=== PATIENT | female | born 1970 | race Hispanic/Latino ===

== ENCOUNTER 2018-10-31 21:02 | Emergency (ER) | payer MEDICARE ==
[2018-10-31 21:59] VITALS: BP 146/62
[2018-11-01] MEDS ORDERED: BENADRYL PO ONE (01:55)
[2018-11-01] MEDS ORDERED: DECADRON PO ONE (01:55)
[2018-11-01] MEDS ORDERED: PEPCID PO ONE (01:55)
--- NOTE | 2018-11-01 02:04 | Emergency Department Report ---
HPI - General Chief Complaint: Allergic Reaction Time Seen by Provider: 11/01/18 01:32 - HPI HPI: Pt is a 48 yo a rash to the extremities that began earlier today. She states that she has itching. The patient states she ate chicken dumplings at someone's house today. She states she believes it is resolving. The patient does not report wheezing, SOB, tongue edema, or any other sx. the patient states she has food allergies to nuts and lactose intolerance but does not believe that was in the food. ED Past Medical Hx - Past Medical History Previous Medical History?: Yes Hx Congestive Heart Failure: Yes Hx Psychiatric Treatment: Yes (Bipolar Depressed) Additional medical history: Hypothyroidism, sleep apnea, DVT - Surgical History Past Surgical History?: Yes - Social History Smoking Status: Never Smoker Substance Use Type: None - Medications Home Medications: Home Medications Medication Instructions Recorded Confirmed Last Taken Type Clotrimazole/Betamethasone Dip 15 gm TP BID 7 Days #1 cream..g. 11/01/18 Unknown Rx [Lotrisone Cream] ED Review of Systems ROS: Stated complaint: rash Other details as noted in HPI Comment: All other systems reviewed and negative Physical Exam - Physical Exam Vital Signs: Vital Signs 10/31/18 21:58 Temperature 97.9 F Pulse Rate 74 Respiratory 18 Rate Blood Pressure 146/62 [Right] O2 Sat by Pulse 94 Oximetry General: Pt is non toxic appearing, in no distress Physical Exam: no tongue edema, uvula is midline, no facial edema, clear breath sounds throughout, no wheezing, no rales, no rhonchi three small macules on the LLE and two small macules on the RUE with erythema around the edges normal rate, normal rhythm, heart sounds are normal ED Course Vital Signs 10/31/18 21:58 Temperature 97.9 F Pulse Rate 74 Respiratory 18 Rate Blood Pressure 146/62 [Right] O2 Sat by Pulse 94 Oximetry ED Medical Decision Making - Medical Decision Making Pt presents to the ED with c/o a rash and itching. She states she ate chicken and dumplings at someones home. Pt states she believes it is resolving. VSS. No tongue edema, no angioedema, no facial edema, breath sounds are clear throughout with good air movement. Pt has three small macules on the LLE and two small macules on the RUE which could represent a tinea corporis. Will give pt an ointment. Pt given medications while in the ED. Discussed with pt can use benadryl OTC for itching. - Differential Diagnosis Allergic reaction, contact dermitis, Tinea corporis Critical care attestation.: If time is entered above; I have spent that time in minutes in the direct care of this critically ill patient, excluding procedure time. ED Disposition Clinical Impression: Tinea corporis Allergic reaction Qualifiers: Encounter type: initial encounter Qualified Code(s): T78.40XA - Allergy, unspecified, initial encounter Disposition: TO HOME OR SELFCARE Is pt being admited?: No Does the pt Need Aspirin: No Condition: Stable Instructions: Tinea Corporis (ED), Allergies (ED) Additional Instructions: Follow up with your primary care doctor in the next 2 days. Use ointment as prescribed. May use benadryl OTC for itching. Return to the emergency room for any new or worsening symptoms. Prescriptions: Clotrimazole/Betamethasone Dip [Lotrisone Cream] 15 gm TP BID 7 Days #1 cream..g. [facility] [Referring] - 2-3 Days Time of Disposition: 02:21 Print Language: SLOVENIAN
== END 2018-11-01 02:25 | disposition home or self-care (01) ==
LOC: ED 21:02
DX: B35.4 Tinea corporis (principal); I50.9 Heart failure, unspecified; E03.9 Hypothyroidism, unspecified; T78.40XA Allergy, unspecified, initial encounter; Y92.89 Other specified places as the place of occurrence of the external cause
CPT/HCPCS: 99282; J8540

== ENCOUNTER 2018-11-15 05:39 | Emergency (ER) | payer MEDICARE ==
[2018-11-15 05:50] VITALS: BP 119/66
[2018-11-15] MEDS ORDERED: DECADRON IM ONE (07:07)
--- NOTE | 2018-11-15 07:12 | Emergency Department Report ---
ED Allergic Reaction HPI - General Chief complaint: Allergic Reaction Stated complaint: POSSIBLE ALLERGIC REACTION Time Seen by Provider: 11/15/18 06:56 Source: patient, EMS Mode of arrival: Ambulatory Limitations: No Limitations - History of Present Illness Initial Comments: This is a 48-year-old female nontoxic, well nourished in appearance, no acute signs of distress presents to the ED with c/o of generalized itching. Patient states she stated on Vistaril and after receiving the dose he received some itching. Patient denies any rash. Patient denies any redness. Patient denies any drooling, hoarseness or facial swelling. Patient denies any trauma. She denies any fever, chills, nausea, vomiting, chest pain, shortness of breath, headache, stiff neck, numbness or tingling. Patient states allergies to Lortab, latex, oxycodone, penicillin, Darvocet, sulfa, dairy allergy, napsylate. MD Complaint: allergic reaction -: Last night Exposure: medication Symptoms: itching. denies: rash, facial swelling, lip swelling, difficulty swallowing, difficulty breathing, orolingual swelling, hoarseness, syncopy, dizziness, nausea, vomiting, abdominal pain Severity: mild Treatment Prior to Arrival: benadryl Previous Allergy History: none - Related Data Home Medications Medication Instructions Recorded Confirmed Last Taken OLANZapine [Zyprexa] 15 mg PO DAILY 11/04/18 11/04/18 Unknown Zolpidem [Ambien] 5 mg PO QHS PRN 11/04/18 11/04/18 Unknown Previous Rx's Medication Instructions Recorded Last Taken Type Clotrimazole/Betamethasone Dip 15 gm TP BID 7 Days #1 cream..g. 11/01/18 Unknown Rx [Lotrisone Cream] Prednisone [predniSONE 10 mg 10 mg PO .TAPER #1 tab.ds.pk 11/15/18 Unknown Rx (6-Day Pack, 21 Tabs)] diphenhydrAMINE [Benadryl CAP] 25 mg PO Q6HR PRN #10 capsule 11/15/18 Unknown Rx Allergies Allergy/AdvReac Type Severity Reaction Status Date / Time acetaminophen [From Lortab] Allergy Unknown Verified 11/15/18 05:54 aspirin Allergy Unknown Verified 11/15/18 05:54 hydrocodone [From Lortab] Allergy Unknown Verified 11/15/18 05:54 latex Allergy Unknown Verified 11/15/18 05:54 nut - unspecified Allergy Unknown Verified 11/15/18 05:54 oxycodone Allergy Unknown Verified 11/15/18 05:54 Penicillins Allergy Rash Verified 11/04/18 05:08 propoxyphene Allergy Rash Verified 11/04/18 05:08 [From Darvocet-N] Sulfa (Sulfonamide Allergy Rash Verified 11/04/18 05:09 Antibiotics) dairy Allergy Unknown Uncoded 11/15/18 05:54 napsylate Allergy Rash Uncoded 11/04/18 05:11 ED Review of Systems ROS: Stated complaint: POSSIBLE ALLERGIC REACTION Other details as noted in HPI Constitutional: denies: chills, fever Eyes: denies: eye pain, eye discharge, vision change ENT: denies: ear pain, throat pain Respiratory: denies: cough, shortness of breath, wheezing Cardiovascular: denies: chest pain, palpitations Endocrine: no symptoms reported Gastrointestinal: denies: abdominal pain, nausea, diarrhea Genitourinary: denies: urgency, dysuria, discharge Musculoskeletal: denies: back pain, joint swelling, arthralgia Skin: denies: rash, lesions Neurological: denies: headache, weakness, paresthesias Psychiatric: denies: anxiety, depression Hematological/Lymphatic: denies: easy bleeding, easy bruising ED Past Medical Hx - Past Medical History Previous Medical History?: Yes Hx Congestive Heart Failure: Yes Hx Psychiatric Treatment: Yes (Bipolar Depressed schizo affective) Hx Asthma: Yes Additional medical history: Hypothyroidism, sleep apnea, DVT, Chronic Back pain, Gastritis, IBS. Hyperlipidemia. Stubbs's palsey - Surgical History Past Surgical History?: Yes Hx Cholecystectomy: Yes Additional Surgical History: Tonsilectomy, Uterine Ablation, Hernia repair, D&C. 2 molar pulled. stiched to nasal cavity. - Social History Smoking Status: Never Smoker Substance Use Type: None - Medications Home Medications: Home Medications Medication Instructions Recorded Confirmed Last Taken Type Clotrimazole/Betamethasone Dip 15 gm TP BID 7 Days #1 cream..g. 11/01/18 11/04/18 Unknown Rx [Lotrisone Cream] OLANZapine [Zyprexa] 15 mg PO DAILY 11/04/18 11/04/18 Unknown History Zolpidem [Ambien] 5 mg PO QHS PRN 11/04/18 11/04/18 Unknown History Prednisone [predniSONE 10 mg 10 mg PO .TAPER #1 tab.ds.pk 11/15/18 Unknown Rx (6-Day Pack, 21 Tabs)] diphenhydrAMINE [Benadryl CAP] 25 mg PO Q6HR PRN #10 capsule 11/15/18 Unknown Rx ED Physical Exam - General Limitations: No Limitations General appearance: alert, in no apparent distress - Head Head exam: Present: atraumatic, normocephalic - Eye Eye exam: Present: normal appearance - ENT ENT exam: Present: normal exam, normal orophraynx, other (uvula midline. no angioedema.) - Neck Neck exam: Present: normal inspection, full ROM. Absent: tenderness, meningismus, lymphadenopathy - Respiratory Respiratory exam: Present: normal lung sounds bilaterally. Absent: respiratory distress, wheezes, rales, rhonchi, stridor, chest wall tenderness, accessory muscle use, decreased breath sounds, prolonged expiratory - Cardiovascular Cardiovascular Exam: Present: regular rate, normal rhythm, normal heart sounds. Absent: bradycardia, tachycardia, irregular rhythm, systolic murmur, diastolic murmur, rubs, gallop - Extremities Exam Extremities exam: Present: normal inspection, full ROM - Back Exam Back exam: Present: normal inspection, full ROM - Neurological Exam Neurological exam: Present: alert, oriented X3 - Psychiatric Psychiatric exam: Present: normal affect, normal mood - Skin Skin exam: Present: warm, dry, intact, normal color. Absent: rash ED Course Vital Signs 11/15/18 05:42 Temperature 97.9 F Pulse Rate 63 Respiratory 18 Rate Blood Pressure 119/66 O2 Sat by Pulse 97 Oximetry - Reevaluation(s) Reevaluation #1: 11/15/18 07:10 Patient is speaking in full sentences with no signs of distress noted. ED Medical Decision Making - Medical Decision Making This is a 48-year-old female that presents with allergic reaction. Patient is stable was examined by me. There is no facial swelling. No angioedema. There is no cellulitis. No hoarseness. Patient received Decadron and patient stated took benadryl prior to the ED visit and stated itching has subsided. Patient is discharged with prednisone and Benadryl. Patient was referred to Follow-up with a primary care doctor in 3-5 days or if symptoms worsen and continue return to emergency room as soon as possible. At time of discharge, the patient does not seem toxic or ill in appearance. No acute signs of distress noted. Patient agrees to discharge treatment plan of care. No further questions noted by the patient. Critical care attestation.: If time is entered above; I have spent that time in minutes in the direct care of this critically ill patient, excluding procedure time. ED Disposition Clinical Impression: Allergic reaction Qualifiers: Encounter type: initial encounter Qualified Code(s): T78.40XA - Allergy, unspecified, initial encounter Disposition: TO HOME OR SELFCARE Is pt being admited?: No Does the pt Need Aspirin: No Condition: Stable Instructions: Anaphylaxis (ED) Additional Instructions: Follow-up with a primary care doctor in 3-5 days or if symptoms worsen and continue return to emergency room as soon as possible. Prescriptions: diphenhydrAMINE [Benadryl CAP] 25 mg PO Q6HR PRN #10 capsule PRN Reason: Itching Prednisone [predniSONE 10 mg (6-Day Pack, 21 Tabs)] 10 mg PO .TAPER #1 tab.ds.pk Referrals: PRIMARY CARE, [Primary Care Provider] - 3-5 Days JAYDA WU MD [Staff Physician] - 3-5 Days [facility] [Outside] - 3-5 Days [facility] [Outside] - 3-5 Days
== END 2018-11-15 07:38 | disposition home or self-care (01) ==
LOC: ED 05:39
DX: T78.40XA Allergy, unspecified, initial encounter (principal); I50.9 Heart failure, unspecified; J45.909 Unspecified asthma, uncomplicated; E03.9 Hypothyroidism, unspecified; G89.29 Other chronic pain; M54.9 Dorsalgia, unspecified; E78.5 Hyperlipidemia, unspecified; Z86.718 Personal history of other venous thrombosis and embolism; Z90.49 Acquired absence of other specified parts of digestive tract; Z88.8 Allergy status to other drugs, medicaments and biological substances; Z88.6 Allergy status to analgesic agent; Z91.040 Latex allergy status; Z91.018 Allergy to other foods; Z88.0 Allergy status to penicillin; Z88.2 Allergy status to sulfonamides; Z91.011 Allergy to milk products
CPT/HCPCS: 96372; 99283; J1100

== ENCOUNTER 2018-12-20 01:53 | Observation (INO) | payer MEDICARE ==
[2018-12-20] MEDS ORDERED: ASPIRIN PO ONE (02:07)
[2018-12-20 02:38] LABS: Basophils # (Auto) 0.1 K/mm3 (0.0-0.1); Basophils % (Auto) 0.8 % (0.0-1.8); Eosinophils # (Auto) 0.4 K/mm3 (0.0-0.4); Eosinophils % (Auto) 3.8 % (0.0-4.3); Hematocrit 40.4 % (30.3-42.9); Hemoglobin 13.3 gm/dl (10.1-14.3); Lymphocytes # (Auto) 2.2 K/mm3 (1.2-5.4); Lymphocytes % (Auto) 23.2 % (13.4-35.0); Mean Corpuscular HGB Conc 33 % (30-34); Mean Corpuscular Volume 82 fl (79-97); Monocytes # (Auto) 0.5 K/mm3 (0.0-0.8); Monocytes % (Auto) 5.6 % (0.0-7.3); Platelet Count 275 K/mm3 (140-440); Red Cell Distribution Width 15.4 % (13.2-15.2)
--- NOTE | 2018-12-20 02:40 | XRay Report ---
PROCEDURE: XR CHEST 1V AP TECHNIQUE: Single portable chest radiograph. HISTORY: Chest pain. COMPARISONS: Chest radiograph September 14, 2012. FINDINGS: Lung volumes decreased. Mild left basilar opacities and blunting of the left costophrenic angle. No l arge pleural effusion. No pneumothorax. Cardiac silhouette incompletely visualized secondary to lordotic technique, no definite enlargement. The superior mediastinum is not significantly widened. Trachea midline. No acute osseous finding. IMPRESSION: 1. Probable mild left basilar opacities and suggested small left pleural effusion. No lobar consolida tion. 2. Examination is limited secondary to portable and lordotic technique. This document is electronically signed by Celso Castañeda DO., Dec 20 2018 02:38:32 AM ET
[2018-12-20 03:05] LABS: BUN/Creatinine Ratio 11; Blood Urea Nitrogen 11 mg/dL (7-17); Calcium 9.6 mg/dL (8.4-10.2); Hemolysis Index 5
--- NOTE | 2018-12-20 06:11 | Emergency Department Report ---
ED Chest Pain HPI - General Chief Complaint: Chest Pain Stated Complaint: CHEST PRESSURE Time Seen by Provider: 12/20/18 06:05 Source: patient Mode of arrival: Ambulatory Limitations: No Limitations - History of Present Illness MD Complaint: chest pain -: Sudden Onset: during rest Severity scale (0 -10): 10 - Related Data Home Medications Medication Instructions Recorded Confirmed Last Taken OLANZapine [Zyprexa] 15 mg PO DAILY 11/04/18 11/04/18 Unknown Zolpidem [Ambien] 5 mg PO QHS PRN 11/04/18 11/04/18 Unknown Previous Rx's Medication Instructions Recorded Last Taken Type Clotrimazole/Betamethasone Dip 15 gm TP BID 7 Days #1 cream..g. 11/01/18 Unknown Rx [Lotrisone Cream] diphenhydrAMINE [Benadryl CAP] 25 mg PO Q6HR PRN #10 capsule 11/15/18 Unknown Rx Dicyclomine [Bentyl] 10 mg PO DAILY PRN #14 capsule 12/01/18 Unknown Rx Famotidine [Pepcid] 20 mg PO DAILY #30 tablet 12/01/18 Unknown Rx Promethazine [Phenergan TAB] 25 mg PO Q8HR PRN #10 tab 12/01/18 Unknown Rx Allergies Allergy/AdvReac Type Severity Reaction Status Date / Time acetaminophen [From Lortab] Allergy Unknown Verified 11/15/18 05:54 aspirin Allergy Unknown Verified 11/15/18 05:54 hydrocodone [From Lortab] Allergy Unknown Verified 11/15/18 05:54 latex Allergy Unknown Verified 11/15/18 05:54 nut - unspecified Allergy Unknown Verified 11/15/18 05:54 oxycodone Allergy Unknown Verified 11/15/18 05:54 Penicillins Allergy Rash Verified 11/04/18 05:08 propoxyphene Allergy Rash Verified 11/04/18 05:08 [From Darvocet-N] Sulfa (Sulfonamide Allergy Rash Verified 11/04/18 05:09 Antibiotics) dairy Allergy Unknown Uncoded 11/15/18 05:54 napsylate Allergy Rash Uncoded 11/04/18 05:11 ED Review of Systems ROS: Stated complaint: CHEST PRESSURE Other details as noted in HPI ED Past Medical Hx - Past Medical History Previous Medical History?: Yes Hx Congestive Heart Failure: Yes Hx Psychiatric Treatment: Yes (Bipolar Depressed schizo affective) Hx Asthma: Yes Additional medical history: Hypothyroidism, sleep apnea, DVT, Chronic Back pain, Gastritis, IBS. Hyperlipidemia. Stubbs's palsey - Surgical History Past Surgical History?: Yes Hx Cholecystectomy: Yes Additional Surgical History: Tonsilectomy, Uterine Ablation, Hernia repair, D&C. 2 molar pulled. stiched to nasal cavity. - Social History Smoking Status: Never Smoker Substance Use Type: None - Medications Home Medications: Home Medications Medication Instructions Recorded Confirmed Last Taken Type Clotrimazole/Betamethasone Dip 15 gm TP BID 7 Days #1 cream..g. 11/01/18 11/04/18 Unknown Rx [Lotrisone Cream] OLANZapine [Zyprexa] 15 mg PO DAILY 11/04/18 11/04/18 Unknown History Zolpidem [Ambien] 5 mg PO QHS PRN 11/04/18 11/04/18 Unknown History diphenhydrAMINE [Benadryl CAP] 25 mg PO Q6HR PRN #10 capsule 11/15/18 Unknown Rx Dicyclomine [Bentyl] 10 mg PO DAILY PRN #14 capsule 12/01/18 Unknown Rx Famotidine [Pepcid] 20 mg PO DAILY #30 tablet 12/01/18 Unknown Rx Promethazine [Phenergan TAB] 25 mg PO Q8HR PRN #10 tab 12/01/18 Unknown Rx ED Physical Exam - General Limitations: No Limitations ED Course Vital Signs 12/20/18 12/20/18 02:05 05:10 Temperature 98.3 F Pulse Rate 81 57 L Respiratory 18 10 L Rate Blood Pressure 108/73 126/84 [Right] O2 Sat by Pulse 96 100 Oximetry ED Medical Decision Making - Lab Data Result diagrams: 12/20/18 02:13 12/20/18 02:13 Critical care attestation.: If time is entered above; I have spent that time in minutes in the direct care of this critically ill patient, excluding procedure time. ED Disposition Condition: Stable Referrals: JACQUELINE ANDERSON MD [Primary Care Provider] - 3-5 Days
--- NOTE | 2018-12-20 06:20 | Emergency Department Report ---
ED Chest Pain HPI - General Chief Complaint: Chest Pain Stated Complaint: CHEST PRESSURE Time Seen by Provider: 12/20/18 06:05 Source: patient Mode of arrival: Ambulatory Limitations: No Limitations - History of Present Illness Initial Comments: Patient is a 48-year-old female Emergency room with complaints of nausea vomiting and chest pain. Patient states her chest pain is in her substernal region and radiates to her jaw. Patient states that her pain started at 1 AM. Patient states the pain is worsening. Patient states the pain is a 10 out of 10. Patient states the pain is worse with exertion and better with rest. Patient states she took a nitroglycerin prior to coming to the hospital. Patient states the nitroglycerin improved her pain MD Complaint: chest pain -: Sudden Onset: during rest Pain Location: substernal, left chest Pain Radiation: jaw/teeth Severity: severe Severity scale (0 -10): 10 Quality: heaviness, pressure Consistency: constant Improves With: rest Worsens With: exertion re: nausea, vomting. denies: diaphoresis, dyspnea, sense of impending doom Other Symptoms: denies: cough, fever, syncope, rash, acid taste in mouth, leg swelling, palpitations, burping Treatments Prior to Arrival: none Aspirin use within the Past 7 Days: (1) Yes - Related Data On Oral Contraceptives: No Home Medications Medication Instructions Recorded Confirmed Last Taken OLANZapine [Zyprexa] 15 mg PO DAILY 11/04/18 12/20/18 Unknown Zolpidem [Ambien] 5 mg PO QHS PRN 11/04/18 12/20/18 Unknown Ciprofloxacin HCl [Cipro] 500 mg PO BID 12/20/18 12/20/18 Unknown Fluticasone Propionate [Flovent 50 mcg IH Q6H PRN 12/20/18 12/20/18 Unknown Diskus] Fluticasone [Flonase] 1 spray NS QDAY 12/20/18 12/20/18 Unknown Furosemide [Lasix TAB] 40 mg PO QDAY 12/20/18 12/20/18 Unknown Nitroglycerin [Nitrostat] 0.4 mg SL Q5MIN PRN MDD 3 12/20/18 12/20/18 Unknown Rivaroxaban [Xarelto] 10 mg PO QDAY 12/20/18 12/20/18 Unknown Spironolactone [Aldactone] 25 mg PO QDAY 12/20/18 12/20/18 Unknown metroNIDAZOLE [Flagyl] 500 mg PO Q12HR 12/20/18 12/20/18 Unknown Previous Rx's Medication Instructions Recorded Last Taken Type Famotidine [Pepcid] 20 mg PO DAILY #30 tablet 12/01/18 Unknown Rx Allergies Allergy/AdvReac Type Severity Reaction Status Date / Time acetaminophen [From Lortab] Allergy Unknown Verified 11/15/18 05:54 aspirin Allergy Unknown Verified 11/15/18 05:54 hydrocodone [From Lortab] Allergy Unknown Verified 11/15/18 05:54 latex Allergy Unknown Verified 11/15/18 05:54 nut - unspecified Allergy Unknown Verified 11/15/18 05:54 oxycodone Allergy Unknown Verified 11/15/18 05:54 Penicillins Allergy Rash Verified 11/04/18 05:08 propoxyphene Allergy Rash Verified 11/04/18 05:08 [From Darvocet-N] Sulfa (Sulfonamide Allergy Rash Verified 11/04/18 05:09 Antibiotics) dairy Allergy Unknown Uncoded 11/15/18 05:54 napsylate Allergy Rash Uncoded 11/04/18 05:11 Heart Score - HEART Score History: Slightly suspicious EKG: Normal Age: 45-65 Risk factors: 1-2 risk factors Troponin: < normal limit HEART Score: 2 ED Review of Systems ROS: Stated complaint: CHEST PRESSURE Other details as noted in HPI Constitutional: denies: chills, fever Eyes: denies: eye pain, eye discharge, vision change ENT: denies: ear pain, throat pain Respiratory: denies: cough, shortness of breath, wheezing Cardiovascular: chest pain. denies: palpitations Endocrine: no symptoms reported Gastrointestinal: nausea, vomiting. denies: abdominal pain, diarrhea Genitourinary: denies: urgency, dysuria, discharge Musculoskeletal: denies: back pain, joint swelling, arthralgia Skin: denies: rash, lesions Neurological: denies: headache, weakness, paresthesias Psychiatric: denies: anxiety, depression Hematological/Lymphatic: denies: easy bleeding, easy bruising ED Past Medical Hx - Past Medical History Previous Medical History?: Yes Hx Congestive Heart Failure: Yes Hx Psychiatric Treatment: Yes (Bipolar Depressed schizo affective) Hx Asthma: Yes Additional medical history: Hypothyroidism, sleep apnea, DVT, Chronic Back pain, Gastritis, IBS. Hyperlipidemia. Stubbs's palsey - Surgical History Past Surgical History?: Yes Hx Cholecystectomy: Yes Additional Surgical History: Tonsilectomy, Uterine Ablation, Hernia repair, D&C. 2 molar pulled. stiched to nasal cavity. - Family History Family history: hypertension - Social History Smoking Status: Never Smoker Substance Use Type: None - Medications Home Medications: Home Medications Medication Instructions Recorded Confirmed Last Taken Type OLANZapine [Zyprexa] 15 mg PO DAILY 11/04/18 12/20/18 Unknown History Zolpidem [Ambien] 5 mg PO QHS PRN 11/04/18 12/20/18 Unknown History Famotidine [Pepcid] 20 mg PO DAILY #30 tablet 12/01/18 12/20/18 Unknown Rx Ciprofloxacin HCl [Cipro] 500 mg PO BID 12/20/18 12/20/18 Unknown History Fluticasone Propionate [Flovent 50 mcg IH Q6H PRN 12/20/18 12/20/18 Unknown History Diskus] Fluticasone [Flonase] 1 spray NS QDAY 12/20/18 12/20/18 Unknown History Furosemide [Lasix TAB] 40 mg PO QDAY 12/20/18 12/20/18 Unknown History Nitroglycerin [Nitrostat] 0.4 mg SL Q5MIN PRN MDD 3 12/20/18 12/20/18 Unknown History Rivaroxaban [Xarelto] 10 mg PO QDAY 12/20/18 12/20/18 Unknown History Spironolactone [Aldactone] 25 mg PO QDAY 12/20/18 12/20/18 Unknown History metroNIDAZOLE [Flagyl] 500 mg PO Q12HR 12/20/18 12/20/18 Unknown History ED Physical Exam - General Limitations: No Limitations General appearance: alert, in no apparent distress - Head Head exam: Present: atraumatic, normocephalic - Eye Eye exam: Present: normal appearance - ENT ENT exam: Present: mucous membranes moist - Neck Neck exam: Present: normal inspection - Respiratory Respiratory exam: Present: normal lung sounds bilaterally. Absent: respiratory distress, wheezes, rales - Cardiovascular Cardiovascular Exam: Present: regular rate, normal rhythm. Absent: systolic murmur, diastolic murmur, rubs, gallop - GI/Abdominal GI/Abdominal exam: Present: soft, normal bowel sounds - Extremities Exam Extremities exam: Present: normal inspection - Back Exam Back exam: Present: normal inspection - Neurological Exam Neurological exam: Present: alert, oriented X3 - Psychiatric Psychiatric exam: Present: normal affect, normal mood - Skin Skin exam: Present: warm, dry, intact, normal color. Absent: rash ED Course Vital Signs 12/20/18 12/20/18 12/20/18 02:05 05:10 08:30 Temperature 98.3 F 98.1 F Pulse Rate 81 57 L 54 L Respiratory 18 10 L 18 Rate Blood Pressure 108/73 126/84 111/68 [Right] O2 Sat by Pulse 96 100 95 Oximetry - Reevaluation(s) Reevaluation #1: Discussed all results with patient. Patient agrees plan of care and admission. Patient will be admitted to the hospitalist service. 12/20/18 07:51 - Consultations Consultation #1: Hospitalist consulted for admission. Hospitalist to admit patient. Hospitalist to assume care patient. Bridging orders were placed 12/20/18 07:51 MARU score - Maru Score Age > 65: (0) No Aspirin use within the Past 7 Days: (1) Yes 3 or more CAD Risk Factors: (1) Yes 2 or more Angina events in past 24 hrs: (1) Yes Known CAD with more than 50% Stenosis: (0) No Elevated Cardiac Markers: (0) No ST Deviation Greater than 0.5mm: (0) No MARU Score: 3 ED Medical Decision Making - Lab Data Result diagrams: 12/20/18 02:13 12/20/18 02:13 - EKG Data -: EKG Interpreted by [place] EKG shows normal: sinus rhythm, axis, intervals, QRS complexes, ST-T waves Rate: normal - Radiology Data Radiology results: report reviewed, image reviewed PROCEDURE: XR CHEST 1V AP TECHNIQUE: Single portable chest radiograph. HISTORY: Chest pain. COMPARISONS: Chest radiograph September 14, 2012. FINDINGS: Lung volumes decreased. Mild left basilar opacities and blunting of the left costophrenic angle. No large pleural effusion. No pneumothorax. Cardiac silhouette incompletely visualized secondary to lordotic technique, no definite enlargement. The superior mediastinum is not significantly widened. Trachea midline. No acute osseous finding. IMPRESSION: 1. Probable mild left basilar opacities and suggested small left pleural effusion. No lobar consolidation. 2. Examination is limited secondary to portable and lordotic technique - Medical Decision Making Patient is a 48-year-old female presents temperature with complaints of chest pain. Patient took nitroglycerin prior to arrival which had a positive effect on her pain. Patient was admitted to the hospitalist service. Patient agrees with plan of care. Patient's labs unremarkable. Patient's EKG and troponin negative. Patient's chest x-ray shows possible pulmonary edema. Patient will require admission to rule out ACS. - Differential Diagnosis ACS. Chest pain. Nausea. Critical Care Time: Yes Critical care attestation.: If time is entered above; I have spent that time in minutes in the direct care of this critically ill patient, excluding procedure time. Critical Care Time: 35 minutes ED Disposition Clinical Impression: Chest pain Qualifiers: Chest pain type: unspecified Qualified Code(s): R07.9 - Chest pain, unspecified Nausea & vomiting Qualifiers: Vomiting type: unspecified Vomiting Intractability: non-intractable Qualified Code(s): R11.2 - Nausea with vomiting, unspecified Disposition: DC-09 OP ADMIT IP TO THIS HOSP Is pt being admited?: Yes Does the pt Need Aspirin: No Condition: Critical Time of Disposition: 07:51
[2018-12-20] MEDS ORDERED: MORPHINE IV ONE (07:37)
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
[2018-12-20] MEDS ORDERED: LEXISCAN IV ONE ×4 (09:39→10:12)
[2018-12-20] MEDS ORDERED: NITROSTAT SL PRN (12:41)
[2018-12-20] MEDS ORDERED: AMBIEN PO PRN (12:41)
[2018-12-20] MEDS ORDERED: NON-FORMULARY (Fluticasone Propionate [Flovent Diskus] 50 MCG) IH PRN (12:41)
[2018-12-20] MEDS ORDERED: NON-FORMULARY (Olanzapine [Zyprexa] 15 MG) PO SCH (12:45)
[2018-12-20] MEDS ORDERED: IBUPROFEN PO ONE (12:50)
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
[2018-12-20] MEDS ORDERED: XARELTO PO SCH (13:00)
[2018-12-20 16:53] VITALS: BP 114/55
[2018-12-20] MEDS ORDERED: PULMICORT IH PRN (20:00)
--- NOTE | 2018-12-20 20:03 | Treadmill Report ---
ORDERING PHYSICIAN: Dr. Carlo kim. INDICATION: Chest pain. FINDINGS: There is no scintigraphic evidence of myocardial ischemia. The left ventricle is normal in size. Left ventricular ejection fraction is measured at 65%. Normal wall motion and wall thickening is noted on gated imaging. CONCLUSION: 1. Fair quality myocardial perfusion scan limited by significant motion artifact, especially noted on the rest images. 2. No scintigraphic evidence of myocardial ischemia. 3. Normal left ventricular size and systolic function. 4. This is a low risk myocardial perfusion scan associated with 1-year cardiovascular event rate of less than 1%. JOB# [id number] OMERO/CARMINA
[2018-12-20] MEDS ORDERED: FLAGYL PO SCH (22:00)
[2018-12-21] MEDS ORDERED: FLONASE NS SCH (10:00)
[2018-12-21] MEDS ORDERED: PEPCID PO SCH (10:00)
[2018-12-21] MEDS ORDERED: LASIX PO SCH (10:00)
[2018-12-21] MEDS ORDERED: ALDACTONE PO SCH (10:00)
== END 2018-12-20 18:00 | disposition home or self-care (01) ==
LOC: ED 01:53 → 4A 07:52
PROVIDERS: ADMIT Internal Medicine; ATTEND Internal Medicine
DX: R07.89 Other chest pain (principal); J18.9 Pneumonia, unspecified organism; R11.2 Nausea with vomiting, unspecified; R19.7 Diarrhea, unspecified; F99 Mental disorder, not otherwise specified; E87.6 Hypokalemia; E66.01 Morbid (severe) obesity due to excess calories; F31.9 Bipolar disorder, unspecified; F25.9 Schizoaffective disorder, unspecified; J45.909 Unspecified asthma, uncomplicated; E03.9 Hypothyroidism, unspecified; G47.33 Obstructive sleep apnea (adult) (pediatric); G51.0 Bell's palsy; I82.409 Acute embolism and thrombosis of unspecified deep veins of unspecified lower extremity; E78.5 Hyperlipidemia, unspecified; K58.9 Irritable bowel syndrome, unspecified; M54.9 Dorsalgia, unspecified; G89.29 Other chronic pain; Z90.89 Acquired absence of other organs; Z98.890 Other specified postprocedural states; Z90.49 Acquired absence of other specified parts of digestive tract; Z82.49 Family history of ischemic heart disease and other diseases of the circulatory system; Z88.0 Allergy status to penicillin; Z88.2 Allergy status to sulfonamides; Z68.41 Body mass index [BMI] 40.0-44.9, adult; Z88.8 Allergy status to other drugs, medicaments and biological substances
CPT/HCPCS: 36415; 71045; 78452; 80048; 83880; 84484; 85025; 93005; 93010; 93017; 96374; 99291; A9502; G0378; J2270; J2785

== ENCOUNTER 2018-12-26 18:33 | Inpatient (IN) | payer MEDICARE ==
--- NOTE | 2018-12-26 19:21 | Emergency Department Report ---
Chief Complaint: Chest Pain Stated Complaint: CHEST PAIN Time Seen by Provider: 12/26/18 19:13 - HPI History of Present Illness: This is a 48 y.o. female that presents to the ER with CATHY and chest pain since today. Patient was admitted for similar symptoms last week. - Exam Vital Signs: Vital Signs 12/26/18 19:16 Temperature 97.8 F Pulse Rate 82 Respiratory 22 Rate Blood Pressure 154/89 O2 Sat by Pulse 100 Oximetry MSE screening note: Focused history and physical exam performed. Due to findings the following was ordered: labs, ekg, and cxr Main ED for further evaluation. ED Disposition for MSE Condition: Stable
[2018-12-26 20:01] LABS: Basophils # (Auto) 0.1 K/mm3 (0.0-0.1); Basophils % (Auto) 0.7 % (0.0-1.8); Eosinophils # (Auto) 0.2 K/mm3 (0.0-0.4); Eosinophils % (Auto) 2.1 % (0.0-4.3); Hematocrit 40.9 % (30.3-42.9); Hemoglobin 13.3 gm/dl (10.1-14.3); Lymphocytes # (Auto) 2.4 K/mm3 (1.2-5.4); Lymphocytes % (Auto) 25.3 % (13.4-35.0); Mean Corpuscular HGB Conc 33 % (30-34); Mean Corpuscular Volume 85 fl (79-97); Monocytes # (Auto) 0.5 K/mm3 (0.0-0.8); Monocytes % (Auto) 5.5 % (0.0-7.3); Platelet Count 256 K/mm3 (140-440); Red Blood Count 4.83 M/mm3 (3.65-5.03); Red Cell Distribution Width 15.6 % (13.2-15.2)
[2018-12-26] MEDS ORDERED: NARCAN 2 MG/2 ML ONE (20:04)
[2018-12-26 20:23] LABS: BUN/Creatinine Ratio 9; Blood Urea Nitrogen 7 mg/dL (7-17); Calcium 9.8 mg/dL (8.4-10.2); Hemolysis Index 17
[2018-12-26] MEDS ORDERED: NARCAN 2 MG/2 ML IV ONE (20:38)
--- NOTE | 2018-12-26 21:05 | Emergency Department Report ---
ED Chest Pain HPI - General Chief Complaint: Chest Pain Stated Complaint: CHEST PAIN Time Seen by Provider: 12/26/18 19:13 Source: patient, old records reviewed Mode of arrival: Ambulatory Limitations: No Limitations - History of Present Illness Initial Comments: 48 year old female with a past medical history asthma, CHF, DVT, bipolar disorder, schizoaffective disorder, bells palsy, chronic pain, IBS, and hypothyroidism presents to the hospital with complaints of chest pain. Patient apparently states she had a choking episode after eating chicken at home. At the choking and vomiting she developed some right upper chest pain. Apparently while waiting in the waiting room sitting in a chair patient became unresponsive. We'll in a responded to deep painful stimuli stimuli. The nurse provided IV Narcan without significant improvement. Patient complains to me of this feeling weak all over and that her tongue is numb. Patient was recently admitted here and receives cardiac workup with negative stress test on 12/20/2018. She is currently on Xarelto and was recently discharged on Levaquin and Flagyl on 12/20 - Related Data Home Medications Medication Instructions Recorded Confirmed Last Taken OLANZapine [Zyprexa] 15 mg PO DAILY 11/04/18 12/20/18 Unknown Zolpidem [Ambien] 5 mg PO QHS PRN 11/04/18 12/20/18 Unknown Fluticasone Propionate [Flovent 50 mcg IH Q6H PRN 12/20/18 12/20/18 Unknown Diskus] Fluticasone [Flonase] 1 spray NS QDAY 12/20/18 12/20/18 Unknown Furosemide [Lasix TAB] 40 mg PO QDAY 12/20/18 12/20/18 Unknown Nitroglycerin [Nitrostat] 0.4 mg SL Q5MIN PRN MDD 3 12/20/18 12/20/18 Unknown Rivaroxaban [Xarelto] 10 mg PO QDAY 12/20/18 12/20/18 Unknown Spironolactone [Aldactone] 25 mg PO QDAY 12/20/18 12/20/18 Unknown metroNIDAZOLE [Flagyl TAB] 500 mg PO Q12HR 12/20/18 12/20/18 Unknown Previous Rx's Medication Instructions Recorded Last Taken Type Famotidine [Pepcid] 20 mg PO DAILY #30 tablet 12/01/18 Unknown Rx levoFLOXacin [Levaquin] 750 mg PO QDAY #5 tablet 12/20/18 Unknown Rx Allergies Allergy/AdvReac Type Severity Reaction Status Date / Time acetaminophen [From Lortab] Allergy Unknown Verified 12/26/18 18:35 aspirin Allergy Unknown Verified 12/26/18 18:35 hydrocodone [From Lortab] Allergy Unknown Verified 12/26/18 18:35 latex Allergy Unknown Verified 12/26/18 18:35 nut - unspecified Allergy Unknown Verified 12/26/18 18:35 oxycodone Allergy Unknown Verified 12/26/18 18:35 Penicillins Allergy Rash Verified 12/26/18 18:35 propoxyphene Allergy Rash Verified 12/26/18 18:35 [From Darvocet-N] Sulfa (Sulfonamide Allergy Rash Verified 12/26/18 18:35 Antibiotics) dairy Allergy Unknown Uncoded 11/15/18 05:54 napsylate Allergy Rash Uncoded 11/04/18 05:11 Heart Score - HEART Score History: Slightly suspicious EKG: Non-specific Age: 45-65 Risk factors: 1-2 risk factors Troponin: < normal limit HEART Score: 3 ED Review of Systems ROS: Stated complaint: CHEST PAIN Other details as noted in HPI Comment: All other systems reviewed and negative ED Past Medical Hx - Past Medical History Previous Medical History?: Yes Hx Congestive Heart Failure: Yes Hx Deep Vein Thrombosis: Yes Hx Psychiatric Treatment: Yes (Bipolar Depressed schizo affective) Hx Asthma: Yes Additional medical history: Hypothyroidism, sleep apnea, DVT, Chronic Back pain, Gastritis, IBS. Hyperlipidemia. Stubbs's palsey - Surgical History Past Surgical History?: Yes Hx Cholecystectomy: Yes Additional Surgical History: Tonsilectomy, Uterine Ablation, Hernia repair, D&C. 2 molar pulled. stiched to nasal cavity. - Social History Smoking Status: Never Smoker Substance Use Type: None - Medications Home Medications: Home Medications Medication Instructions Recorded Confirmed Last Taken Type OLANZapine [Zyprexa] 15 mg PO DAILY 11/04/18 12/20/18 Unknown History Zolpidem [Ambien] 5 mg PO QHS PRN 11/04/18 12/20/18 Unknown History Famotidine [Pepcid] 20 mg PO DAILY #30 tablet 12/01/18 12/20/18 Unknown Rx Fluticasone Propionate [Flovent 50 mcg IH Q6H PRN 12/20/18 12/20/18 Unknown History Diskus] Fluticasone [Flonase] 1 spray NS QDAY 12/20/18 12/20/18 Unknown History Furosemide [Lasix TAB] 40 mg PO QDAY 12/20/18 12/20/18 Unknown History Nitroglycerin [Nitrostat] 0.4 mg SL Q5MIN PRN MDD 3 12/20/18 12/20/18 Unknown History Rivaroxaban [Xarelto] 10 mg PO QDAY 12/20/18 12/20/18 Unknown History Spironolactone [Aldactone] 25 mg PO QDAY 12/20/18 12/20/18 Unknown History levoFLOXacin [Levaquin] 750 mg PO QDAY #5 tablet 12/20/18 Unknown Rx metroNIDAZOLE [Flagyl TAB] 500 mg PO Q12HR 12/20/18 12/20/18 Unknown History ED Physical Exam - General Limitations: Other - Other Other exam information: General: No limitations, patient is alert in no acute distress Head exam: Atraumatic, normocephalic Eyes exam: Normal appearance, pupils equal reactive to light ENT: Moist mucous membrane, normal oropharynx Neck exam: Normal inspection, full range of motion, no meningismus nontender Respiratory exam: Clear to auscultation bilateral, no wheezes, rales, crackles Cardiovascular: Normal rate and rhythm, normal heart sounds Abdomen: Soft, nondistended, and nontender, with normal bowel sounds, no rebound, or guarding Extremity: Full range of motion normal inspection no deformity Back: Normal Inspection, full range of motion, no tenderness Neurologic: Alert, oriented x3, cranial nerves intact, patient has sensation to touch is equal bilaterally. Patient has very poor effort on neurologic exam and is showing inconsistent results. Patient is unable to lift both arms up against gravity however, when asked to raise her right arm to her nose she states she can't move it. Patient has normal left arm [id number] function. Patient would not lift either leg off the bed and has weak effort on plantar flexion of both legs. It does not appear to be any consistent unilateral weakness the patient complains of feeling weak all over. Pt has upper and lower right facial weakness with hx of bells palsy. Patient will not track with her eyes stating that she can't only looks forward. Psychiatric: normal affect, normal mood Skin: Warm, dry, intact ED Course Vital Signs 12/26/18 12/26/18 12/26/18 19:16 20:38 21:00 Temperature 97.8 F Pulse Rate 82 68 65 Respiratory 22 15 16 Rate Blood Pressure 154/89 Blood Pressure 150/98 [Right] O2 Sat by Pulse 100 99 98 Oximetry 12/26/18 12/26/18 12/26/18 21:16 21:30 22:40 Temperature Pulse Rate 53 L 71 54 L Respiratory 18 17 17 Rate Blood Pressure Blood Pressure 134/71 148/77 142/88 [Right] O2 Sat by Pulse 98 100 99 Oximetry MARU score - Maru Score Age > 65: (0) No Aspirin use within the Past 7 Days: (1) Yes 3 or more CAD Risk Factors: (1) Yes 2 or more Angina events in past 24 hrs: (1) Yes Known CAD with more than 50% Stenosis: (0) No Elevated Cardiac Markers: (0) No ST Deviation Greater than 0.5mm: (0) No MARU Score: 3 ED Medical Decision Making - Lab Data Result diagrams: 12/26/18 19:31 12/26/18 19:31 Lab Results 12/26/18 12/26/18 12/26/18 Range/Units 19:31 19:31 21:36 WBC 9.5 (4.5-11.0) K/mm3 RBC 4.83 (3.65-5.03) M/mm3 Hgb 13.3 (10.1-14.3) gm/dl Hct 40.9 (30.3-42.9) % MCV 85 (79-97) fl MCH 28 (28-32) pg MCHC 33 (30-34) % RDW 15.6 H (13.2-15.2) % Plt Count 256 (140-440) K/mm3 Lymph % (Auto) 25.3 (13.4-35.0) % [place] % (Auto) 5.5 (0.0-7.3) % Eos % (Auto) 2.1 (0.0-4.3) % Baso % (Auto) 0.7 (0.0-1.8) % Lymph # 2.4 (1.2-5.4) K/mm3 [place] # 0.5 (0.0-0.8) K/mm3 Eos # 0.2 (0.0-0.4) K/mm3 Baso # 0.1 (0.0-0.1) K/mm3 Seg Neutrophils % 66.4 (40.0-70.0) % Seg Neutrophils # 6.3 (1.8-7.7) K/mm3 PT (12.2-14.9) Sec. INR (0.87-1.13) APTT (24.2-36.6) Sec. Thrombin Time (15.1-19.6) Sec. Sodium 143 (137-145) mmol/L Potassium 3.5 L (3.6-5.0) mmol/L Chloride 100.4 (98-107) mmol/L Carbon Dioxide 25 (22-30) mmol/L Anion Gap 21 mmol/L BUN 7 (7-17) mg/dL Creatinine 0.8 (0.7-1.2) mg/dL Estimated GFR > 60 ml/min BUN/Creatinine Ratio 9 % Glucose 97 (65-100) mg/dL Calcium 9.8 (8.4-10.2) mg/dL Troponin T < 0.010 < 0.010 (0.00-0.029) ng/mL 12/26/18 Range/Units 21:36 WBC (4.5-11.0) K/mm3 RBC (3.65-5.03) M/mm3 Hgb (10.1-14.3) gm/dl Hct (30.3-42.9) % MCV (79-97) fl MCH (28-32) pg MCHC (30-34) % RDW (13.2-15.2) % Plt Count (140-440) K/mm3 Lymph % (Auto) (13.4-35.0) % [place] % (Auto) (0.0-7.3) % Eos % (Auto) (0.0-4.3) % Baso % (Auto) (0.0-1.8) % Lymph # (1.2-5.4) K/mm3 [place] # (0.0-0.8) K/mm3 Eos # (0.0-0.4) K/mm3 Baso # (0.0-0.1) K/mm3 Seg Neutrophils % (40.0-70.0) % Seg Neutrophils # (1.8-7.7) K/mm3 PT 13.5 (12.2-14.9) Sec. INR 0.97 (0.87-1.13) APTT 50.7 H (24.2-36.6) Sec. Thrombin Time 14.9 L (15.1-19.6) Sec. Sodium (137-145) mmol/L Potassium (3.6-5.0) mmol/L Chloride (98-107) mmol/L Carbon Dioxide (22-30) mmol/L Anion Gap mmol/L BUN (7-17) mg/dL Creatinine (0.7-1.2) mg/dL Estimated GFR ml/min BUN/Creatinine Ratio % Glucose (65-100) mg/dL Calcium (8.4-10.2) mg/dL Troponin T (0.00-0.029) ng/mL - EKG Data -: EKG Interpreted by [place] EKG shows normal: sinus rhythm, axis (qrs -34), QRS complexes (qrsd 102), ST-T waves (no stemi) Rate: normal (65) - Radiology Data Radiology results: report reviewed PROCEDURE: CT HEAD/BRAIN WO CON TECHNIQUE: Computerized tomography of the head was performed without contrast material. CT DOSE LENGTH PRODUCT: 995.6 mGycm HISTORY: stroke sx COMPARISONS: None . FINDINGS: Brain: Brain density appears normal. No evidence of intracranial hemorrhage. No parenchymal hemorrhage, mass lesions or mass effect are seen. No abnormal extra-axial fluid collects or masses are seen. Ventricles: Ventricles are normal size and are midline. Bone Windows: No evidence of skull fracture. Paranasal sinuses: Clear. Mastoid air cells: Clear. IMPRESSION: No acute or focal abnormalities identified. If clinically indicated MRI of the brain could be obtained for further evaluation. . PROCEDURE: CT angiogram chest with contrast. TECHNIQUE: Computerized tomographic angiography of the chest was performed after the IV injection of iodinated nonionic contrast including image processing. The image data was postprocessed using 2-dimensional multiplanar reformatted (MPR) and 3-dimensional (MIP and/or volume rendered) techniques. Automated exposure control, adjustment of mA and/or kV according to patient size, or iterative reconstruction dose optimization techniques were utilized. CT DOSE LENGTH PRODUCT: 990.7 mGycm HISTORY: Chest pain, vomiting, weakness. COMPARISONS: None. FINDINGS: The trachea and central bronchi appear normal. The lungs are clear and well expanded. There are no pleural effusions. The thoracic aorta has a normal caliber without evidence of dissection. The pulmonary arteries enhance normally. There are no filling defects to indicate pulmonary embolism. There is no mediastinal adenopathy. The heart size is normal. The thoracic skeleton appears intact. IMPRESSION: Normal study. PROCEDURE: XR CHEST 1V AP TECHNIQUE: Chest radiograph single view. HISTORY: Chest Pain COMPARISONS: Comparison is dated December 26, 2018 . FINDINGS: Heart: Normal. Mediastinum/Vessels: Normal. Lungs/Pleural space: Normal. Bony thorax: No acute osseous abnormality. Life support devices: None. IMPRESSION: No acute cardiopulmonary abnormality. - Medical Decision Making Patient did receive a stroke evaluation by the neurologist who recommended workup. Neuro exam is inconsistent with acute CVA patient complains of bilateral weakness. CT head did not show any acute abnormalities. Patient has right-sided facial weakness involving the upper and lower face and a history of Stubbs's palsy. CT angiogram is negative for dissection or pulmonary embolism. Patient will be admitted to the hospitalist service for further workup. Patient does have a significant psychiatric history as well. - Differential Diagnosis conversion disorder, malingering, CVA, cephalopathy, ICH, dissection, PE Critical Care Time: No Critical care attestation.: If time is entered above; I have spent that time in minutes in the direct care of this critically ill patient, excluding procedure time. ED Disposition Clinical Impression: Choking episode, residential current use of anticoagulant therapy, Schizoaffective disorder, Generalized weakness, Bipolar disorder Chest pain Qualifiers: Chest pain type: unspecified Qualified Code(s): R07.9 - Chest pain, unspecified Nausea & vomiting Qualifiers: Vomiting type: unspecified Vomiting Intractability: non-intractable Qualified Code(s): R11.2 - Nausea with vomiting, unspecified Disposition: DC-09 OP ADMIT IP TO THIS HOSP Is pt being admited?: Yes Condition: Stable Time of Disposition: 23:22 (Dr Kingston/hosp)
--- NOTE | 2018-12-26 21:18 | Consultation ---
History of Present Illness Consult date: 12/26/18 History of present illness: 48 y/o woman presents to the ED with chest pain and choking and difficulty breathing. Patient has h/o Stubbs's palsy. Patient is poor historian and cannot tell me when was last known well. Emergent telestroke consult requested due to generalized weakness. Patient complains of tongue numbness and bilateral feet numbness. CT head reviewed and case discussed with ED staff. patient Medications and Allergies Allergies Allergy/AdvReac Type Severity Reaction Status Date / Time acetaminophen [From Lortab] Allergy Unknown Verified 12/26/18 18:35 aspirin Allergy Unknown Verified 12/26/18 18:35 hydrocodone [From Lortab] Allergy Unknown Verified 12/26/18 18:35 latex Allergy Unknown Verified 12/26/18 18:35 nut - unspecified Allergy Unknown Verified 12/26/18 18:35 oxycodone Allergy Unknown Verified 12/26/18 18:35 Penicillins Allergy Rash Verified 12/26/18 18:35 propoxyphene Allergy Rash Verified 12/26/18 18:35 [From Darvocet-N] Sulfa (Sulfonamide Allergy Rash Verified 12/26/18 18:35 Antibiotics) dairy Allergy Unknown Uncoded 11/15/18 05:54 napsylate Allergy Rash Uncoded 11/04/18 05:11 Home Medications Medication Instructions Recorded Confirmed Last Taken Type OLANZapine [Zyprexa] 15 mg PO DAILY 11/04/18 12/20/18 Unknown History Zolpidem [Ambien] 5 mg PO QHS PRN 11/04/18 12/20/18 Unknown History Famotidine [Pepcid] 20 mg PO DAILY #30 tablet 12/01/18 12/20/18 Unknown Rx Fluticasone Propionate [Flovent 50 mcg IH Q6H PRN 12/20/18 12/20/18 Unknown History Diskus] Fluticasone [Flonase] 1 spray NS QDAY 12/20/18 12/20/18 Unknown History Furosemide [Lasix TAB] 40 mg PO QDAY 12/20/18 12/20/18 Unknown History Nitroglycerin [Nitrostat] 0.4 mg SL Q5MIN PRN MDD 3 12/20/18 12/20/18 Unknown History Rivaroxaban [Xarelto] 10 mg PO QDAY 12/20/18 12/20/18 Unknown History Spironolactone [Aldactone] 25 mg PO QDAY 12/20/18 12/20/18 Unknown History levoFLOXacin [Levaquin] 750 mg PO QDAY #5 tablet 12/20/18 Unknown Rx metroNIDAZOLE [Flagyl TAB] 500 mg PO Q12HR 12/20/18 12/20/18 Unknown History Physical Examination - Vital Signs Vital Signs: Vital Signs Temp Pulse Resp BP Pulse Ox 97.8 F 82 22 154/89 100 12/26/18 19:16 12/26/18 19:16 12/26/18 19:16 12/26/18 19:16 12/26/18 19:16 - Level of Consciousness 1a. Level of Consciousness: alert/keenly responsive - LOC Questions 1b. LOC Questions: answers both correctly - LOC Command 1c. LOC Commands: performs tasks correctly - Best Gaze 2. Best Gaze: normal - Visual 3. Visual: no visual loss - Facial Palsy 4. Facial Palsy: partial paralysis (has h/o stubbs's palsy) - Motor Arm 5a. Motor Arm Left: no drift 5b. Motor Arm Right: no drift - Motor Leg 6a. Motor Leg Left: no gravity effort 6b. Motor Leg Right: no gravity effort - Limb Ataxia 7. Limb Ataxia: absent - Sensory 8. Sensory: mild/moderate sensory loss - Best Language 9. Best Language: no aphasia - Dysarthria 10. Dysarthria: normal - Extinction and Inattention 11. Extinction/Inattention: no abnormality - Scoring Total Score: 9 Stroke Severity: Moderate Stroke Results - Laboratory Findings CBC and BMP: 12/26/18 19:31 12/26/18 19:31 Abnormal Lab Findings: Abnormal Labs 12/26/18 12/26/18 19:31 19:31 RDW 15.6 H Potassium 3.5 L Assessment and Plan [facility] Impression: Chest pain and generalized weakness Differential Diagnosis: 1. Cardioembolic stroke 2. Small vessel disease/lacune 3. Thromboembolic, dnathj-[id number] mechanism 4. Hypercoagulable state-related infarct 5. Thrombotic mechanism, large artery disease 6. Transient ischemic attack Comments: Last known well: Unknown Door time:1832 [facility] contacted: 2102 [facility] at bedside: 2111 NIHSS assessment time:2111 Needle time:TPA not considered since she is unknown last known well. Also there is concern this could be a dissection. Patient also reported on Xarelto for DVT. Thrombectomy not considered since large proximal intracranial vessel occlusion is not suspected Discussion: Our recommendations are outlined below. Recommendations: Chest pain work-up. Consider evaluation for dissection for PE given her h/o DVT. Neurochecks PT/OT/ST DVT prophylaxis Follow up with Neurology for further testing/evaluation Medical Decision Making: - Extensive number of diagnosis or management options are considered above. - Extensive amount of complex data reviewed. - High risk of complication and/or morbidity or mortality are associated with differential diagnostic considerations above. - There may be uncertain outcome and increased probability of prolonged functional impairment or high probability of severe prolonged functional impairment associated with some of these differential diagnosis. Medical Data Reviewed: 1.Data reviewed include clinical labs, radiology, Medical Tests; 2.Tests results discussed w/performing or interpreting physician; 3.Obtaining/reviewing old medical records; 4.Obtaining case history from another source; 5.Independent review of image, tracing or specimen.
--- NOTE | 2018-12-26 21:38 | Cat Scan Report ---
PROCEDURE: CT HEAD/BRAIN WO CON TECHNIQUE: Computerized tomography of the head was performed without contrast material. CT DOSE LENGTH PRODUCT: 995.6 mGycm HISTORY: stroke sx COMPARISONS: None . FINDINGS: Brain: Brain density appears normal. No evidence of intracranial hemorrhage. No parenchymal hemorr mary, mass lesions or mass effect are seen. No abnormal extra-axial fluid collects or masses are see n. Ventricles: Ventricles are normal size and are midline. Bone Windows: No evidence of skull fracture. Paranasal sinuses: Clear. Mastoid air cells: Clear. IMPRESSION: No acute or focal abnormalities identified. If clinically indicated MRI of the brain could be obtaine d for further evaluation. . This document is electronically signed by Dhaval Smiley MD., Dec 26 2018 09:35:42 PM ET
[2018-12-26 21:50] LABS: INR 0.97 (0.87-1.13)
[2018-12-26 21:51] LABS: Partial Thromboplastin Time 50.7 Sec. (24.2-36.6); Thrombin Time 14.9 Sec. (15.1-19.6)
--- NOTE | 2018-12-26 21:52 | XRay Report ---
PROCEDURE: XR CHEST 1V AP TECHNIQUE: Chest radiograph single view. HISTORY: Chest Pain COMPARISONS: Comparison is dated December 26, 2018 . FINDINGS: Heart: Normal. Mediastinum/Vessels: Normal. Lungs/Pleural space: Normal. Bony thorax: No acute osseous abnormality. Life support devices: None. IMPRESSION: No acute cardiopulmonary abnormality. This document is electronically signed by Alexis Salinas MD., Dec 26 2018 09:50:12 PM ET
--- NOTE | 2018-12-26 23:04 | Cat Scan Report ---
PROCEDURE: CT angiogram chest with contrast. TECHNIQUE: Computerized tomographic angiography of the chest was performed after the IV injection of iodinated nonionic contrast including image processing. The image data was postprocessed using 2-di mensional multiplanar reformatted (MPR) and 3-dimensional (MIP and/or volume rendered) techniques. Au tomated exposure control, adjustment of mA and/or kV according to patient size, or iterative reconstr uction dose optimization techniques were utilized. CT DOSE LENGTH PRODUCT: 990.7 mGycm HISTORY: Chest pain, vomiting, weakness. COMPARISONS: None. FINDINGS: The trachea and central bronchi appear normal. The lungs are clear and well expanded. There are no pl eural effusions. The thoracic aorta has a normal caliber without evidence of dissection. The pulmonar y arteries enhance normally. There are no filling defects to indicate pulmonary embolism. There is no mediastinal adenopathy. The heart size is normal. The thoracic skeleton appears intact. IMPRESSION: Normal study. This document is electronically signed by Jose Luis Doe MD., Dec 26 2018 11:02:43 PM ET
[2018-12-26] MEDS ORDERED: SODIUM CHLORIDE FLUSH SYRINGE 10 ML IV PRN (23:34)
[2018-12-26] MEDS ORDERED: ZOFRAN IV PRN (23:34)
[2018-12-26] MEDS ORDERED: SODIUM CHLORIDE FLUSH SYRINGE 10 ML INJ PRN (23:39)
[2018-12-26] MEDS ORDERED: NACL 0.45% 1000 ML 1,000 ML IV SCH (23:45)
--- NOTE | 2018-12-26 23:48 | History and Physical Report ---
History of Present Illness Date of examination: 12/26/18 History of present illness: 48-year-old woman with a history of schizoaffective disorder, bipolar, asthma, CHF, hypothyroidism, sleep apnea, hyperlipidemia, Stubbs's palsy, DVT, IBS, gastritis, comes to the emergency room after choking on a chicken. Stated her tongue became numb and should develop pain in the upper chest, now resolved. Nurse reported that while she was intubated in the emergency room she became unresponsive, she was given Narcan without any success. She responded to sternal rub. Complain of numbness in her legs, greater than left and weakness in her legs. Status post stress test last week which was negative Review of systems Constitutional: no weight loss, chills, fever Ears, eyes, nose, mouth and throat: no nasal congestion, no nasal discharge, no sinus pressure, no vision change, no red eye. Neck: No neck pain or rigidity. Cardiovascular: no palpitations, chest pain Respiratory: no cough, shortness of breath Gastrointestinal: no hematochezia, abdominal pain Genitourinary : no frequency , no hematuria Musculoskeletal: no joint swelling or muscle ache Integumentary: no rash, no pruritis Neurological: no parathesias, no focal weakness Endocrine: no cold or heat intolerance, no polyuria or polydipsia Hematologic/Lymphatic: no easy bruising, no easy bleeding, no gland swelling Allergic/Immunologic: no urticaria, no angioedema. PAST MEDICAL HISTORY:schizoaffective disorder, bipolar, asthma, CHF, hypothyroidism, sleep apnea, hyperlipidemia, Stubbs's palsy, DVT, IBS, gastritis, PAST SURGICAL HISTORY: Cholecystectomy, tonsillectomy, hysterectomy, hernia repa ir,surgery and nose, uterine ablation SOCIAL HISTORY: Denies alcohol, drugs, tobacco FAMILY HISTORY: Hypertension Medications and Allergies Allergies Allergy/AdvReac Type Severity Reaction Status Date / Time acetaminophen [From Lortab] Allergy Unknown Verified 12/26/18 18:35 aspirin Allergy Unknown Verified 12/26/18 18:35 divalproex sodium Allergy Rash Verified 12/27/18 01:28 [From Depakote] hydrocodone [From Lortab] Allergy Unknown Verified 12/26/18 18:35 latex Allergy Unknown Verified 12/26/18 18:35 nut - unspecified Allergy Unknown Verified 12/26/18 18:35 oxycodone Allergy Unknown Verified 12/26/18 18:35 Penicillins Allergy Rash Verified 12/26/18 18:35 propoxyphene Allergy Rash Verified 12/26/18 18:35 [From Darvocet-N] Sulfa (Sulfonamide Allergy Rash Verified 12/26/18 18:35 Antibiotics) dairy Allergy Unknown Uncoded 11/15/18 05:54 napsylate Allergy Rash Uncoded 11/04/18 05:11 Home Medications Medication Instructions Recorded Confirmed Last Taken Type OLANZapine [Zyprexa] 15 mg PO DAILY 11/04/18 12/27/18 12/26/18 09:00 History Zolpidem [Ambien] 5 mg PO QHS PRN 11/04/18 12/27/18 12/25/18 22:00 History Famotidine [Pepcid] 20 mg PO DAILY #30 tablet 12/01/18 12/27/18 12/26/18 09:00 Rx Fluticasone Propionate [Flovent 50 mcg IH Q6H PRN 12/20/18 12/27/18 12/26/18 22:00 History Diskus] Fluticasone [Flonase] 1 spray NS QDAY 12/20/18 12/27/18 12/26/18 09:00 History Furosemide [Lasix TAB] 40 mg PO QDAY 12/20/18 12/27/18 12/26/18 09:00 History Nitroglycerin [Nitrostat] 0.4 mg SL Q5MIN PRN MDD 3 12/20/18 12/27/18 12/26/18 22:00 History Rivaroxaban [Xarelto] 10 mg PO QDAY 12/20/18 12/27/18 12/26/18 09:00 History Spironolactone [Aldactone] 25 mg PO QDAY 12/20/18 12/27/18 12/26/18 09:00 History Gabapentin [Neurontin] 100 mg PO Q8HR #30 capsule 12/28/18 Unknown Rx diphenhydrAMINE [Benadryl CAP] 25 mg PO Q8HR PRN #7 capsule 12/28/18 Unknown Rx predniSONE [Deltasone] 50 mg PO QDAY #4 tab 12/28/18 Unknown Rx Active Meds: Active Medications Enoxaparin Sodium (Lovenox) 30 mg SUB-Q QDAY AUGUSTIN Famotidine (Pepcid) 20 mg IV BID AUGUSTIN Sodium Chloride (Nacl 0.45% 1000 Ml) 1,000 mls @ 42 mls/hr IV DIRECT AUGUSTIN Methylprednisolone Sodium Succinate (Solu-Medrol) 60 mg IV Q8HR AUGUSTIN Ondansetron HCl (Zofran) 4 mg IV Q4H PRN PRN Reason: Nausea And Vomiting Sodium Chloride (Sodium Chloride Flush Syringe 10 Ml) 10 ml IV BID AUGUSTIN Sodium Chloride (Sodium Chloride Flush Syringe 10 Ml) 10 ml IV PRN PRN PRN Reason: LINE FLUSH Exam - Physical Exam Narrative exam: General Apperance: The patient lying in bed, breathing comfortable HEENT: Normocephalic, atraumatic. Pupils equally round and reactive to light, EOMI, no sclericterus or JVD or thyromegaly or nodule. , no carotid bruit, mucous membranes moist, no exudate or erythema Heart: S1-S2, regular is rhythm Lungs: Clear to auscultation bilaterally, breathing comfortable Abdomen: Positive bowel sounds, soft, nontender, nondistended, no organomegaly Extremities: No edema cyanosis clubbing Skin: no rash, nodule, warm and dry Neuro: cranial nerves 2-12 intact, speech is fluent, motor - poor effort, sensory - decrease sensation, right > left - Constitutional Vitals: Temp Pulse Resp BP Pulse Ox 97.8 F 54 L 17 142/88 99 12/26/18 19:16 12/26/18 22:40 12/26/18 22:40 12/26/18 22:40 12/26/18 22:40 Results - Labs CBC & Chem 7: 12/27/18 04:29 12/27/18 04:29 Labs: Abnormal lab results 12/26/18 12/26/18 12/26/18 Range/Units 19:31 19:31 21:36 RDW 15.6 H (13.2-15.2) % APTT 50.7 H (24.2-36.6) Sec. Thrombin Time 14.9 L (15.1-19.6) Sec. Potassium 3.5 L (3.6-5.0) mmol/L - Imaging and Cardiology Chest x-ray: report reviewed CT scan - chest: report reviewed CT Scan - head: report reviewed Assessment and Plan Assessment Paresthesia and weakness of lower extremities, less likely CVA Chest pain most likely secondary to choking event Paresthesia of the tongue, likely allergic reaction schizoaffective disorder bipolar asthma CHF hypothyroidism sleep apnea hyperlipidemia Stubbs's palsy h/o DVT IBS/gastritis, Plan Admit to medicine Obtain MRI of the head and neck, echo Doingneuro checks, swalolow screen Consult neurology, physical and occupational therapy neurologic Check cardiac enzymes, start statin, continue xarelto Start high-dose steroids, pepcid DVT prophalaxis
[2018-12-27] MEDS ORDERED: APRESOLINE IV PRN (00:02)
[2018-12-27] MEDS: PEPCID IV SCH ×3 (00:14→21:57)
[2018-12-27] MEDS: SOLU-Medrol IV SCH ×4 (00:14→21:57)
[2018-12-27 00:51] LABS: Creatine Kinase MB 1.2 ng/mL (0.0-4.0)
[2018-12-27] MEDS ORDERED: NON-FORMULARY (Fluticasone Propionate [Flovent Diskus] 50 MCG) IH PRN (03:03)
[2018-12-27] MEDS ORDERED: PULMICORT IH PRN (03:59)
[2018-12-27 05:24] LABS: Basophils % (Auto) 0.3 % (0.0-1.8); Eosinophils % (Auto) 0.3 % (0.0-4.3); Hematocrit 39.8 % (30.3-42.9); Hemoglobin 13.2 gm/dl (10.1-14.3); Lymphocytes # (Auto) 1.1 K/mm3 (1.2-5.4); Lymphocytes % (Auto) 12.4 % (13.4-35.0); Mean Corpuscular HGB Conc 33 % (30-34); Mean Corpuscular Volume 82 fl (79-97); Monocytes # (Auto) 0.1 K/mm3 (0.0-0.8); Monocytes % (Auto) 1.5 % (0.0-7.3); Platelet Count 227 K/mm3 (140-440); Red Blood Count 4.85 M/mm3 (3.65-5.03)
[2018-12-27 05:45] LABS: Creatine Kinase MB 1.1 ng/mL (0.0-4.0)
[2018-12-27 05:49] LABS: BUN/Creatinine Ratio 10; Blood Urea Nitrogen 7 mg/dL (7-17); Calcium 9.1 mg/dL (8.4-10.2); Chol/HDL Ratio 2.51 %; HDL Cholesterol 45 mg/dL (40-59); Hemolysis Index 6; LDL Cholesterol,Direct 57 mg/dL (50-130)
[2018-12-27] MEDS ORDERED: PLAVIX PO SCH (10:00)
[2018-12-27] MEDS ORDERED: LOVENOX SUB-Q SCH ×2 (10:00)
[2018-12-27] MEDS ORDERED: NON-FORMULARY (Olanzapine [Zyprexa] 15 MG) PO SCH (10:00)
[2018-12-27] MEDS: ALDACTONE PO SCH (10:56)
[2018-12-27] MEDS: MORPHINE IV PRN ×2 (10:56→16:23)
[2018-12-27] MEDS: XARELTO PO SCH (10:56)
[2018-12-27] MEDS: LASIX PO SCH (10:56)
[2018-12-27] MEDS: SODIUM CHLORIDE FLUSH SYRINGE 10 ML IV SCH ×2 (10:56→21:58)
--- NOTE | 2018-12-27 14:40 | Progress Note ---
Assessment and Plan Paresthesia and weakness of lower extremities, less likely CVA - negative MRI of the head and neck for acute CVA, follow 2d echo - cont neuro checks, likely from peripheral neuropathy - Consulted neurology, physical and occupational therapy - follow recommendation Chest pain most likely secondary to choking event - Negative cardiac enzymes, cont statin, continue xarelto - Follow 2-D echo Paresthesia of the tongue, likely allergic reaction - Start high-dose steroids, pepcid Other chronic issues schizoaffective disorder bipolar disorder asthma CHF, compensated hypothyroidism sleep apnea hyperlipidemia Stubbs's palsy history of h/o DVT IBS/gastritis, - Continue current home medications - Continue xarelto Brief History: 48 y/o woman with history of schizoaffective disorder, bipolar, asthma, CHF, hypothyroidism, sleep apnea, hyperlipidemia, Stubbs's palsy, DVT, IBS, gastritis,presents to the ED with chest pain and choking and difficulty breathing. Emergent telestroke consult requested due to generalized weakness. Patient complains of tongue numbness and bilateral feet numbness. She was admitted for further evaluation and management. Radiological data: Chest x-ray: No acute cardiopulmonary abnormality. Head CT: No acute or focal abnormalities identified. If clinically indicated MRI of the brain could be obtained for further evaluation. . Chest CTA: Normal study. Brain MRI/MRA: Normal study: No evidence of acute/subacute infarct or hemorrhage. Hospitalist Physical exam: GENERAL: well-developed obese white female lying on bed appeared to be in no discomfort. HEENT: Normocephalic. Atraumatic. No conjunctival congestion or icterus. Patient has moist mucous membranes. NECK: Supple. Trachea midline. CHEST/LUNGS: Clear to auscultated bilaterally, breathing nonlabored. No wheezes crackles or rhonchi. HEART/CARDIOVASCULAR: Regular in rate and rhythm. S1 and S2 positive. ABDOMEN: Abdomen is soft, nontender. Patient has normal bowel sounds. SKIN: There is no rash. Warm and dry. NEURO: No focal motor deficit. Follows command. MUSCULOSKELETAL: No joint effusion or tenderness. EXTRIMITY: No edema, no cyanosis or clubbing. PSYCH: Cooperative. Subjective Date of service: 12/27/18 Interval history: Patient seen and examined. Medical records and medication list reviewed. No acute event overnight noted by the RN. Patient denies any chest pain or difficulty breathing. Patient continued to complain of difficulty swallowing Discussed plan of care at bedside with patient. Objective - Constitutional Vitals: Vital Signs - 12hr 12/27/18 12/27/18 03:50 07:42 Temperature 98.4 F 97.5 F L Pulse Rate 65 Respiratory 16 18 Rate Blood Pressure 108/64 101/60 O2 Sat by Pulse 97 Oximetry - Labs CBC & Chem 7: 12/27/18 04:29 12/27/18 04:29 Labs: Abnormal lab results 12/26/18 12/26/18 12/26/18 Range/Units 19:31 19:31 21:36 MCH (28-32) pg RDW 15.6 H (13.2-15.2) % Lymph % (Auto) (13.4-35.0) % Lymph # (1.2-5.4) K/mm3 Seg Neutrophils % (40.0-70.0) % APTT 50.7 H (24.2-36.6) Sec. Thrombin Time 14.9 L (15.1-19.6) Sec. Potassium 3.5 L (3.6-5.0) mmol/L Glucose (65-100) mg/dL 12/27/18 12/27/18 Range/Units 04:29 04:29 MCH 27 L (28-32) pg RDW (13.2-15.2) % Lymph % (Auto) 12.4 L (13.4-35.0) % Lymph # 1.1 L (1.2-5.4) K/mm3 Seg Neutrophils % 85.5 H (40.0-70.0) % APTT (24.2-36.6) Sec. Thrombin Time (15.1-19.6) Sec. Potassium (3.6-5.0) mmol/L Glucose 138 H (65-100) mg/dL
--- NOTE | 2018-12-27 16:10 | Magnetic Resonance Report ---
MRI BRAIN WITHOUT CONTRAST: 12/26/18 23:35:00 CLINICAL: Stroke. COMPARISON: CT Head 12/26/18 TECHNIQUE: Axial diffusion, T1, T2, gradient echo T2*, coronal and axial FLAIR and sagittal T1 sequences on a 1.5 Asiya magnet. FINDINGS: Normal ventricles and sulci. No restricted diffusion and no abnormal signal. No mass or mass effect. No hemorrhage, edema or extra-axial collection. Normal pituitary and optic chiasm. The brainstem and cerebellum are normal. Intact vascular flow voids. Normal sinuses. The orbits, and soft tissues are normal. Normal calvarium and skull base. IMPRESSION: Normal. No evidence of acute/subacute infarct or hemorrhage.
--- NOTE | 2018-12-27 16:12 | Magnetic Resonance Report ---
MRA HEAD WITHOUT CONTRAST: 12/27/18 CLINICAL: Stroke. TECHNIQUE: Axial 3-D [id number] MR angiography of the [place] with review of axial source images. FINDINGS: Intact [place] with no aneurysm, stenosis or occlusion. The left A1 segment is absent and the left MARY fills from the right. This is a normal variation. Symmetric blood flow in the anterior, middle and posterior cerebral arteries. Normal basilar and vertebral arteries. IMPRESSION: Normal study.
--- NOTE | 2018-12-27 17:07 | Progress Note ---
Assessment and Plan This is a 48 YO F with paresthesias, etiology unclear Recommend: b12, folate, a1c, tsh MRI Brain reviewed and is normal Might benefit from nerve conduction study outpatient Subjective Date of service: 12/27/18 Principal diagnosis: paresthesias Interval history: Pt seen by teleneuro on admission. Says her paresthesias are improving. Objective - Vital Sign Vital Signs - 12hr 12/27/18 07:42 Temperature 97.5 F L Respiratory 18 Rate Blood Pressure 101/60 - General Apperance Constitutional: comfortable - EENT EENT: PERRL - Respiratory Respiratory: lungs clear - Cardiovascular Cardiovascular: regular rate Extremities: no peripheral edema bilat - Gastrointestinal Gastrointestinal: normoactive bowel sounds - Neurologic Cranial nerve examination: other (ptosis and right facial droop, known carey's pa lsy) Motor examination - right side: 5/5: biceps, triceps, wrist flexion, wrist extension, debarker operator, hip flexors, knee extensors, dorsiflexion, toe extension (EHL), plantarflexion Motor examination - left side: 5/5: biceps, triceps, wrist flexion, wrist extension, debarker operator, hip flexors, knee extensors, dorsiflexion, toe extension (EHL), plantarflexion Detailed sensory examination: other (decreased to pinprick in LE, no anatomical distribution) Reflexes: 1+: ankle, bicep, knee, tricep - Laboratory Findings CBC and BMP: 12/27/18 04:29 12/27/18 04:29 Abnormal Lab Findings: Abnormal Labs 12/26/18 12/26/18 12/26/18 19:31 19:31 21:36 MCH RDW 15.6 H Lymph % (Auto) Lymph # Seg Neutrophils % APTT 50.7 H Thrombin Time 14.9 L Potassium 3.5 L Glucose 12/27/18 12/27/18 04:29 04:29 MCH 27 L RDW Lymph % (Auto) 12.4 L Lymph # 1.1 L Seg Neutrophils % 85.5 H APTT Thrombin Time Potassium Glucose 138 H
[2018-12-28] MEDS: SOLU-Medrol IV SCH ×2 (05:34→14:17)
[2018-12-28] MEDS: MORPHINE IV PRN (05:40)
[2018-12-28 08:26] VITALS: BP 116/61
[2018-12-28] MEDS: PEPCID IV SCH (09:36)
[2018-12-28] MEDS: LASIX PO SCH (09:37)
[2018-12-28] MEDS: SODIUM CHLORIDE FLUSH SYRINGE 10 ML IV SCH (09:37)
[2018-12-28] MEDS: XARELTO PO SCH (09:37)
[2018-12-28] MEDS: ALDACTONE PO SCH (09:37)
--- NOTE | 2018-12-28 12:02 | Fluoroscopy Report ---
MODIFIED BARIUM SWALLOW History: dysphagia. Findings: Video radiography was provided by the radiologist for speech therapy to assess the swallowing mechanism. 1 fluoroscopic image was captured. Impression: Successful modified barium swallow.
--- NOTE | 2018-12-28 15:14 | Discharge Summary ---
Providers - Providers Date of Admission: 12/26/18 23:35 Date of discharge: 12/28/18 Attending physician: YEISON BACA 12/26/18 23:34 Consult to Physician [CONS] Routine Comment: Consulting Provider: REGINALD VELAZCO Physician Instructions: Reason For Exam: paresthesia/weakness 12/26/18 23:39 Occupational Therapy Evaluate and Treat [CONS] Routine Comment: Reason For Exam: Neuro deficits Physical Therapy Evaluation and Treat [CONS] Routine Comment: Reason For Exam: Neuro deficits 12/27/18 14:40 Speech Therapy Evaluation and Treat [CONS] Routine Reason For Exam: dysphagia [facility] Condition: Stable Hospital course: Brief History: 48 y/o woman with history of schizoaffective disorder, bipolar, asthma, CHF, hypothyroidism, sleep apnea, hyperlipidemia, Stubbs's palsy, DVT, IBS, gastritis presented to the ED with chest pain and choking and difficulty breathing. Emergent teleneurology consult requested due to generalized weakness. Patient complains of tongue numbness and bilateral feet numbness. She was admitted for further evaluation and management. Radiological data: Chest x-ray: No acute cardiopulmonary abnormality. Head CT: No acute or focal abnormalities identified. If clinically indicated MRI of the brain could be obtained for further evaluation. . Chest CTA: Normal study. Brain MRI/MRA: Normal study: No evidence of acute/subacute infarct or hemorrhage. 2-D echo: MBS study Discharge diagnosis and management: Paresthesia and weakness of lower extremities, likely from peripheral neuropathy - negative MRI of the head and neck for acute CVA, 2d echo preserved EF - monitored with neuro checks, ruled out acute stroke - Consulted neurology, physical and occupational therapy Chest pain most likely secondary to choking event - Negative cardiac enzymes, cont statin, continue xarelto -Preserved EF on 2-D echo Paresthesia of the tongue with the dysphagia, likely allergic reaction - Resolved with high-dose steroids and pepcid - Had normal MBS study, tolerated oral diet - We'll complete the when necessary dose of steroids as outpatient Other chronic issues schizoaffective disorder bipolar disorder asthma CHF, history of, EF preserved on 2-D echo on this admission hypothyroidism sleep apnea hyperlipidemia Stubbs's palsy history of h/o DVT IBS/gastritis, - Will Continue current home medications including xarelto Hospitalist Physical exam: GENERAL: well-developed obese white female lying on bed appeared to be in no discomfort. HEENT: Normocephalic. Atraumatic. No conjunctival congestion or icterus. Yimi junior has moist mucous membranes. NECK: Supple. Trachea midline. CHEST/LUNGS: Clear to auscultated bilaterally, breathing nonlabored. No wheezes crackles or rhonchi. HEART/CARDIOVASCULAR: Regular in rate and rhythm. S1 and S2 positive. ABDOMEN: Abdomen is soft, nontender. Patient has normal bowel sounds. SKIN: There is no rash. Warm and dry. NEURO: No focal motor deficit. Follows command. MUSCULOSKELETAL: No joint effusion or tenderness. EXTRIMITY: No edema, no cyanosis or clubbing. PSYCH: Cooperative. Disposition: DC-01 TO HOME OR SELFCARE Time spent for discharge: 34 minutes Core Measure Documentation - Palliative Care Palliative Care/ Comfort Measures: Not Applicable - Core Measures Any of the following diagnoses?: none Exam - Constitutional Vitals: Temp Pulse Resp BP Pulse Ox 98.4 F 64 16 116/61 96 12/28/18 08:24 12/28/18 08:24 12/28/18 13:00 12/28/18 08:24 12/28/18 10:00 Plan Activity: fall precautions Weight Bearing Status: Non-Weight Bearing Diet: low fat, low salt Special Instructions: record daily BP diary Follow up with: JACQUELINE ANDERSON MD [Primary Care Provider] - 7 Days Prescriptions: diphenhydrAMINE [Benadryl CAP] 25 mg PO Q8HR PRN #7 capsule PRN Reason: Allergic Reaction predniSONE [Deltasone] 50 mg PO QDAY #4 tab Gabapentin [Neurontin] 100 mg PO Q8HR #30 capsule
[2018-12-28] MEDS ORDERED: PEPCID PO SCH (22:00)
== END 2018-12-28 19:32 | disposition home or self-care (01) | DRG 74 ==
LOC: ED 18:33 → 4A 23:35
PROVIDERS: ADMIT Internal Medicine; ATTEND Internal Medicine
DX: G62.9 Polyneuropathy, unspecified (principal); T17.928A Food in respiratory tract, part unspecified causing other injury, initial encounter; F31.9 Bipolar disorder, unspecified; F25.9 Schizoaffective disorder, unspecified; E03.9 Hypothyroidism, unspecified; K58.9 Irritable bowel syndrome, unspecified; G89.29 Other chronic pain; G47.30 Sleep apnea, unspecified; K29.50 Unspecified chronic gastritis without bleeding; G51.0 Bell's palsy; T78.40XA Allergy, unspecified, initial encounter; M54.9 Dorsalgia, unspecified; X58.XXXA Exposure to other specified factors, initial encounter; J45.909 Unspecified asthma, uncomplicated; Z90.49 Acquired absence of other specified parts of digestive tract; Z90.89 Acquired absence of other organs; Z90.710 Acquired absence of both cervix and uterus; Z82.49 Family history of ischemic heart disease and other diseases of the circulatory system; Z86.718 Personal history of other venous thrombosis and embolism; Z79.01 Long term (current) use of anticoagulants; Z88.0 Allergy status to penicillin; Z88.2 Allergy status to sulfonamides; Z88.8 Allergy status to other drugs, medicaments and biological substances; Z91.040 Latex allergy status; Z91.011 Allergy to milk products; Z88.5 Allergy status to narcotic agent; Z91.018 Allergy to other foods; Y93.89 Activity, other specified; Y92.89 Other specified places as the place of occurrence of the external cause; Y99.8 Other external cause status
CPT/HCPCS: 36415; 70450; 70544; 70551; 71045; 71275; 74230; 80048; 80061; 82550; 82553; 82607; 82747; 83036; 84439; 84443; 84484; 85025; 85610; 85670; 85730; 87116; 93005; 93010; 93306; G0378; A9270-GY; J2270; J2310; J2930; Q9967

== ENCOUNTER 2019-01-06 19:53 | Emergency (ER) | payer MEDICARE ==
[2019-01-06 20:23] VITALS: BP 129/77
--- NOTE | 2019-01-06 20:34 | Emergency Department Report ---
ED General Adult HPI - General Chief complaint: Abdominal Pain Stated complaint: NAUSEA,ABD APIN Time Seen by Provider: 01/06/19 20:30 Source: patient, RN notes reviewed, old records reviewed Mode of arrival: Ambulatory Limitations: No Limitations - History of Present Illness Initial comments: This is a 48-year-old female. The patient is not known to this provider previously. Past medical history includes schizoaffective disorder, bipolar, asthma, asthma, reported congestive heart failure, hypothyroidism, DVT, on systemic anticoagulation, reported history of IBS and gastritis Her primary care doctor is Dr Marks The patient presents to the emergency room with the complaint of nontraumatic right flank pain. The pain started 2 hours prior to arrival. It is constant. It is sharp. It increases with palpation it decreases with rest. There is no headache, neck pain, chest pain, shortness of breath, urinary symptoms. The patient endorses compliance with her outpatient medications. Patient admitted to this hospital within the past month. Recently has had an extensive workup. She had a CT angiogram of the chest which was unremarkable. She had MRI brain which was unremarkable. She had 2-D echo which was reportedly unremarkable. She had an unremarkable video fluoroscopic swallow study. She had a CT scan of her abdomen and pelvis at the end of November which was essentially unremarkable. She reports she is able to tolerate tramadol, and morphine for her pain medications. -: Gradual, hour(s) Location: abdomen Radiation: non-radiation Quality: aching Consistency: other Improves with: other Worsens with: other Associated Symptoms: other - Related Data Home Medications Medication Instructions Recorded Confirmed Last Taken OLANZapine [Zyprexa] 15 mg PO DAILY 11/04/18 12/27/18 12/26/18 09:00 Zolpidem [Ambien] 5 mg PO QHS PRN 11/04/18 12/27/18 12/25/18 22:00 Fluticasone Propionate [Flovent 50 mcg IH Q6H PRN 12/20/18 12/27/18 12/26/18 22:00 Diskus] Fluticasone [Flonase] 1 spray NS QDAY 12/20/18 12/27/18 12/26/18 09:00 Furosemide [Lasix TAB] 40 mg PO QDAY 12/20/18 12/27/18 12/26/18 09:00 Nitroglycerin [Nitrostat] 0.4 mg SL Q5MIN PRN MDD 3 12/20/18 12/27/18 12/26/18 22:00 Rivaroxaban [Xarelto] 10 mg PO QDAY 12/20/18 12/27/18 12/26/18 09:00 Spironolactone [Aldactone] 25 mg PO QDAY 12/20/18 12/27/18 12/26/18 09:00 Previous Rx's Medication Instructions Recorded Last Taken Type Famotidine [Pepcid] 20 mg PO DAILY #30 tablet 12/01/18 12/26/18 09:00 Rx Gabapentin [Neurontin] 100 mg PO Q8HR #30 capsule 12/28/18 Unknown Rx diphenhydrAMINE [Benadryl CAP] 25 mg PO Q8HR PRN #7 capsule 12/28/18 Unknown Rx predniSONE [Deltasone] 50 mg PO QDAY #4 tab 12/28/18 Unknown Rx Dicyclomine [Bentyl] 10 mg PO QID PRN #20 capsule 01/06/19 Unknown Rx Allergies Allergy/AdvReac Type Severity Reaction Status Date / Time acetaminophen [From Lortab] Allergy Unknown Verified 12/26/18 18:35 aspirin Allergy Unknown Verified 12/26/18 18:35 divalproex sodium Allergy Rash Verified 12/27/18 01:28 [From Depakote] hydrocodone [From Lortab] Allergy Unknown Verified 12/26/18 18:35 latex Allergy Unknown Verified 12/26/18 18:35 nut - unspecified Allergy Unknown Verified 12/26/18 18:35 oxycodone Allergy Unknown Verified 12/26/18 18:35 Penicillins Allergy Rash Verified 12/26/18 18:35 propoxyphene Allergy Rash Verified 12/26/18 18:35 [From Darvocet-N] Sulfa (Sulfonamide Allergy Rash Verified 12/26/18 18:35 Antibiotics) dairy Allergy Unknown Uncoded 11/15/18 05:54 napsylate Allergy Rash Uncoded 11/04/18 05:11 ED Review of Systems ROS: Stated complaint: NAUSEA,ABD APIN Other details as noted in HPI Constitutional: malaise Eyes: denies: eye discharge ENT: denies: epistaxis Respiratory: denies: see HPI Cardiovascular: denies: chest pain Gastrointestinal: abdominal pain Genitourinary: denies: dysuria Musculoskeletal: denies: arthralgia Skin: denies: lesions Neurological: weakness Psychiatric: anxiety ED Past Medical Hx - Past Medical History Previous Medical History?: Yes Hx Hypertension: Yes Hx Congestive Heart Failure: Yes (2013) Hx Diabetes: No Hx Deep Vein Thrombosis: Yes Hx Psychiatric Treatment: Yes (Bipolar Depressed schizo affective) Hx Asthma: Yes Hx COPD: No Additional medical history: Hypothyroidism, sleep apnea, DVT, Chronic Back pain, Gastritis, IBS. Hyperlipidemia, Ovarian cyst. Stubbs's palsey - Surgical History Past Surgical History?: Yes Hx Cholecystectomy: Yes Additional Surgical History: Tonsilectomy, Uterine Ablation, Hernia repair, D&C. 2 molar pulled. stiched to nasal cavity. - Social History Smoking Status: Never Smoker - Medications Home Medications: Home Medications Medication Instructions Recorded Confirmed Last Taken Type OLANZapine [Zyprexa] 15 mg PO DAILY 11/04/18 12/27/18 12/26/18 09:00 History Zolpidem [Ambien] 5 mg PO QHS PRN 11/04/18 12/27/18 12/25/18 22:00 History Famotidine [Pepcid] 20 mg PO DAILY #30 tablet 12/01/18 12/27/18 12/26/18 09:00 Rx Fluticasone Propionate [Flovent 50 mcg IH Q6H PRN 12/20/18 12/27/18 12/26/18 22:00 History Diskus] Fluticasone [Flonase] 1 spray NS QDAY 12/20/18 12/27/18 12/26/18 09:00 History Furosemide [Lasix TAB] 40 mg PO QDAY 12/20/18 12/27/18 12/26/18 09:00 History Nitroglycerin [Nitrostat] 0.4 mg SL Q5MIN PRN MDD 3 12/20/18 12/27/18 12/26/18 22:00 History Rivaroxaban [Xarelto] 10 mg PO QDAY 12/20/18 12/27/18 12/26/18 09:00 History Spironolactone [Aldactone] 25 mg PO QDAY 12/20/18 12/27/18 12/26/18 09:00 History Gabapentin [Neurontin] 100 mg PO Q8HR #30 capsule 12/28/18 Unknown Rx diphenhydrAMINE [Benadryl CAP] 25 mg PO Q8HR PRN #7 capsule 12/28/18 Unknown Rx predniSONE [Deltasone] 50 mg PO QDAY #4 tab 12/28/18 Unknown Rx Dicyclomine [Bentyl] 10 mg PO QID PRN #20 capsule 01/06/19 Unknown Rx ED Physical Exam - General Limitations: No Limitations General appearance: alert, anxious, obese - Head Head exam: Present: atraumatic, normocephalic - Eye Eye exam: Present: normal appearance, EOMI. Absent: nystagmus - ENT ENT exam: Present: normal exam, normal orophraynx, mucous membranes moist, normal external ear exam - Neck Neck exam: Present: normal inspection, full ROM. Absent: tenderness, meningismus - Respiratory Respiratory exam: Present: normal lung sounds bilaterally. Absent: respiratory distress - Cardiovascular Cardiovascular Exam: Present: regular rate, normal rhythm, normal heart sounds. Absent: bradycardia, tachycardia, irregular rhythm, systolic murmur, diastolic murmur, rubs, gallop - GI/Abdominal GI/Abdominal exam: Present: soft, tenderness, other (there is right flank tenderness. There is no right upper quadrant tenderness. There is no rebound, guarding or peritoneal signs.). Absent: distended, guarding, rebound, rigid, pulsatile mass - Extremities Exam Extremities exam: Present: normal inspection, full ROM, other (2+ pulses noted in the bilateral upper, lower extremities. Compartments soft. No long bony tenderness. The pelvis is stable.). Absent: calf tenderness - Back Exam Back exam: Present: normal inspection, full ROM. Absent: tenderness, CVA tenderness (R), CVA tenderness (L), paraspinal tenderness, vertebral tenderness - Neurological Exam Neurological exam: Present: alert, other (there is no facial droop. The tongue is midline. Extraocular movements are intact bilaterally. There is 5 out of 5 strength in 4 extremities.) - Psychiatric Psychiatric exam: Present: anxious - Skin Skin exam: Present: warm, dry, intact, normal color. 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 Name Address [facility] State Zip Phone NEFTALI Trejo [facility] [address] YANI CHAMBERS MD [address] [facility] [phone] [phone] BONI CLEMENTE [address] [facility] [id number] [phone] LUIS MANN [address] [place] [address] SIMBA MORALES MD [address] [place] [phone] JARRETT WILBURN MD [address] [place] [address] 12/18/2018 7 11/17/2018 CLONAZEPAM 1 MG TABLET 90.0 30 NE KAH [id number] HARDY (5607) 1 Comm Ins 12/13/2018 7 11/17/2018 ZOLPIDEM TARTRATE 10 MG TABLET 30.0 30 NE KAH [id number] HARDY (5607) 1 Comm Ins 12/07/2018 7 12/06/2018 DIPHENOXYLATE-ATROP 2.5-0.025 60.0 20 EL SMI [id number] HARDY (5607) 0 Comm Ins 11/22/2018 7 11/17/2018 CLONAZEPAM 1 MG TABLET 90.0 30 NE KAH 197444 HARDY (5607) 0 Comm Ins 11/17/2018 7 11/17/2018 ZOLPIDEM TARTRATE 10 MG TABLET 30.0 30 NE KAH 485175 HARDY (5607) 0 Comm Ins 11/14/2018 5 11/13/2018 DIPHENOXYLATE-ATROP 2.5-0.025 60.0 30 EL SMI [id number] HARDY (5607) 0 Comm Ins 10/19/2018 2 10/19/2018 DIPHENOXYLATE-ATROP 2.5-0.025 60.0 15 EL SMI [id number] [facility]AL[facility] (2919) 0 Comm Ins 10/11/2018 2 10/11/2018 TRAMADOL HCL 50 MG TABLET 90.0 30 EL SMI [id number] [facility]AL[facility] (2817) 0 15.0 MME Comm Ins 10/05/2018 2 10/05/2018 ZOLPIDEM TARTRATE 10 MG TABLET 30.0 30 NE KAH [id number] [facility]AL[facility] (2817) 0 Comm Ins 10/05/2018 2 10/05/2018 CLONAZEPAM 1 MG TABLET 90.0 30 NE KAH [id number] [facility]AL[facility] (2817) 0 Comm Ins 09/20/2018 3 09/20/2018 TRAMADOL HCL 50 MG TABLET 15.0 5 ADA GOS 01995 PCI P (4626) 0 15.0 MME Comm Ins 09/10/2018 3 08/18/2018 CLONAZEPAM 1 MG TABLET 90.0 30 NE KAH 62649 PCI P (4626) 0 Comm Ins [place] 01/06/19 20:37 Reevaluation #2: 01/06/19 21:21 Differential diagnosis, including but not limited to: Retroperitoneal hematoma, renal colic, appendicitis, colitis, diverticulitis, IBS Assessment and plan: 48-year-old female, reported history of multiple abdominal surgeries, not tachycardic, not hypoxic, on systemic anticoagulation, with abdominal pain. She is afebrile with reassuring vital signs. She appears to be mildly uncomfortable. We will obtain screening laboratory studies, provide her with pain medication, obtain CT scan of the abdomen and pelvis, and reassess after initial data points. Reevaluation #3: 01/06/19 22:18 Resting comfortably, on stretcher, and in no acute distress. Reevaluation #4: 01/06/19 23:30 Patient resting comfortably, and in no acute distress. CT scan negative for acute disease. Right sided 3 cm cystic lesion in the right adnexal region most likely represents a dominant follicle versus ovarian cyst. This appears to be a chronic finding. The patient can follow up with an outpatient pharmacy picking tech for this. The patient appears quite comfortable at this point in time. She is medically suitable for discharge at this point in time. I do not identify a condition that requires narcotic therapy for discharge. Unfortunately, the patient is allergic to acetaminophen, aspirin, and is currently taking systemic anticoagulation, which limits oral analgesia. Nevertheless, the patient does not appear to have an emergent medical condition at this time. ED Medical Decision Making - Lab Data Result diagrams: 01/06/19 20:36 01/06/19 20:36 Vital Signs 01/06/19 01/06/19 20:17 20:20 Temperature 97.9 F 97.9 F Pulse Rate 69 70 Respiratory 18 18 Rate Blood Pressure 129/71 129/77 O2 Sat by Pulse 99 99 Oximetry Lab Results 01/06/19 01/06/19 Range/Units 20:36 20:36 WBC 7.7 (4.5-11.0) K/mm3 RBC 4.85 (3.65-5.03) M/mm3 Hgb 13.5 (10.1-14.3) gm/dl Hct 40.0 (30.3-42.9) % MCV 82 (79-97) fl MCH 28 (28-32) pg MCHC 34 (30-34) % RDW 15.1 (13.2-15.2) % Plt Count 225 (140-440) K/mm3 Lymph % (Auto) 27.9 (13.4-35.0) % [place] % (Auto) 6.2 (0.0-7.3) % Eos % (Auto) 2.3 (0.0-4.3) % Baso % (Auto) 0.6 (0.0-1.8) % Lymph # 2.1 (1.2-5.4) K/mm3 [place] # 0.5 (0.0-0.8) K/mm3 Eos # 0.2 (0.0-0.4) K/mm3 Baso # 0.0 (0.0-0.1) K/mm3 Seg Neutrophils % 63.0 (40.0-70.0) % Seg Neutrophils # 4.8 (1.8-7.7) K/mm3 Sodium 142 (137-145) mmol/L Potassium 3.1 L (3.6-5.0) mmol/L Chloride 101.6 (98-107) mmol/L Carbon Dioxide 28 (22-30) mmol/L Anion Gap 16 mmol/L BUN 8 (7-17) mg/dL Creatinine 0.8 (0.7-1.2) mg/dL Estimated GFR > 60 ml/min BUN/Creatinine Ratio 10 % Glucose 89 (65-100) mg/dL Calcium 9.0 (8.4-10.2) mg/dL Total Bilirubin 0.30 (0.1-1.2) mg/dL AST 12 (5-40) units/L ALT 13 (7-56) units/L Alkaline Phosphatase 79 (35-129) units/L Total Protein 7.1 (6.3-8.2) g/dL Albumin 4.0 (3.9-5) g/dL Albumin/Globulin Ratio 1.3 % Lipase 58 (13-60) units/L - EKG Data -: EKG Interpreted by Me Rate: bradycardia - EKG Data Interpretation: unchanged when compared t (12/26/2018.) 01/06/19 22:19 This is a bradycardic rhythm, sinus, left axis deviation, left anterior fascicular block, low voltage, poor R progression, abnormal EKG, no endorsement of chest pain, this is not an ST elevation myocardial infarction. This EKG is abnormal. qtc is within normal limits. ER interval is within brent l limits. - Radiology Data Radiology results: report reviewed, image reviewed Print Report Referring Physician: ENZO MORALES Patient Name: ANETA LIVE Date of : 1970 Sex: Female Report Date: 2018-12-01 Report Status: [place] [address] Cat Scan Report Signed Patient: ANETA LIVE MR#: [id number] : 1970 Acct:[id number] Age/Sex: 48 / F ADM Date: 12/01/18 Loc: ED Attending Dr: Ordering Physician: AUGUSTINE ALSTON Date of Service: 12/01/18 Procedure(s): CT abdomen pelvis wo/w con Accession Number(s): [id number] cc: AUGUSTINE ALSTON CT ABDOMEN AND PELVIS WITHOUT AND WITH CONTRAST INDICATION: Upper abdominal pain. History of hernia repair. COMPARISON: 10/22/2012 CT and some before. FINDINGS: Abdomen and pelvis CT performed following intravenous administration of 100 cc of Omnipaque 300. Precontrast images also obtained. LUNG BASES: Minimal pericardial thickening/fluid measuring up to 0.7 cm AP, axial series 2, image 25, similar to 04/21/2012 CT. Mild bibasilar atelectasis or scarring again noted as also a 0.4 cm left lung base calcified granuloma posteriorly, axial image 26. Slight nonspecific distal esophageal wall prominence/thickening, not excluded for gastroesophageal reflux and/or hiatal hernia, amongst others. ABDOMEN: Precontrast images again demonstrate cholecystectomy clips. No radiopaque renal calculi. Postcontrast images again demonstrate unremarkable liver, spleen, pancreas, adrenals, aorta, IVC and kidneys. No ascites or size significant adenopathy. Nonopacified GI tract evaluation limited, though grossly nonobstructive. Normal appendix. Mild stool throughout colon/possible constipation. PELVIS: Approximately 3.2 x 2.6 cm right adnexal/ovarian hypodense cyst ranges between 20-30 HU. Note made of right ovarian cyst dating back to 08/05/2011 CT reports available at this institution. Otherwise grossly unremarkable adnexa/ovaries, uterus, urinary bladder and the rectosigmoid. Few small pelvic phleboliths. No free fluid or significant adenopathy. Mild multilevel spinal degenerative changes as spurring. Mild bilateral L4-L5 facet degenerative changes also seen. CONCLUSION: 1. Slightly generous pericardial fluid inferiorly toward the base may again be noted, as detailed above. 2. No other acute or significant CT abnormality with various other findings as bibasilar scarring, cholecystectomy, hysterectomy, right adnexal/ovarian cyst and possible mild constipation also again noted, as described. Please correlate. Thank you for the opportunity to participate in this patient's care. Transcribed By: RS Dictated By: JACLYN LENNON MD E lectronically Authenticated By: JACLYN LENNON MD Signed Date/Time: 12/01/18 0952 Print Report Referring Physician: LUIS RICHARD Patient Name: ANETA LIVE Date of : 1970 Sex: Female Report Date: 2019-01-06 Report Status: Finalized Findings [address] [address] Cat Scan Report Signed Patient: ANETA LIVE MR#: [id number] : 1970 Acct:[id number] Age/Sex: 48 / F ADM Date: 01/06/19 Loc: ED Attending Dr: Ordering Physician: LUIS RICHARD MD Date of Service: 01/06/19 Procedure(s): CT abdomen pelvis w con Accession Number(s): [id number] cc: LUIS RICHARD MD PROCEDURE: CT ABDOMEN PELVIS W CON TECHNIQUE: Computerized axial tomography of the abdomen and pelvis was performed after the IV injection of iodinated nonionic contrast. CT DOSE LENGTH PRODUCT: 3527.5 mGycm HISTORY: right sided abd pain COMPARISONS: None . FINDINGS: Liver, spleen, pancreas and bilateral adrenal glands are within normal limits. Bilateral kidneys demonstrate uniform enhancement without hydronephrosis. Aorta is of normal caliber. Status post cholecystectomy. Small bowel loops are within normal limits. Appendix is normal. Vertebral height is normal. A 3 cm cystic lesion is noted in the right adnexal region. IMPRESSION: 3 cm cystic lesion in the right adnexal region most likely represents a dominant follicle versus ovarian cyst. Ultrasound evaluation may be recommended. This document is electronically signed by Nathen Keenan MD., Jan 06 2019 10:41:24 PM ET Transcribed By: [facility] Dictated By: NATHEN KEENAN Electronically Authenticated By: NATHEN KEENAN Signed Date/Time: 01/06/19 8633 Critical care attestation.: If time is entered above; I have spent that time in minutes in the direct care of this critically ill patient, excluding procedure time. ED Disposition Clinical Impression: Abdominal pain Disposition: DC-01 TO HOME OR SELFCARE Is pt being admited?: No Does the pt Need Aspirin: No Condition: Stable Instructions: Abdominal Pain (ED) Additional Instructions: CT scan of the abdomen and pelvis demonstrated a right-sided ovarian cyst/follicle. Please follow up with an [facility] physician for this within the next 2 weeks. Continue current outpatient medications. Do not take metformin for the next 48 hours, if patient takes this medication. Continue other outpatient medications. Return to the emergency room right away with new pain, worsened pain, migration of pain, projectile vomiting, change in mental status, confusion, inability to tolerate liquid feeds. Referrals: [facility] [Provider Group] - 3-5 Days [facility] [Provider Group] - 3-5 Days [facility] [Provider Group] - 3-5 Days
[2019-01-06] MEDS ORDERED: NACL 0.9% 500 ML 500 ML IV ONE (20:43)
[2019-01-06] MEDS ORDERED: MORPHINE IV ONE (20:43)
[2019-01-06 20:50] LABS: Basophils % (Auto) 0.6 % (0.0-1.8); Eosinophils # (Auto) 0.2 K/mm3 (0.0-0.4); Eosinophils % (Auto) 2.3 % (0.0-4.3); Hemoglobin 13.5 gm/dl (10.1-14.3); Lymphocytes # (Auto) 2.1 K/mm3 (1.2-5.4); Lymphocytes % (Auto) 27.9 % (13.4-35.0); Mean Corpuscular HGB Conc 34 % (30-34); Mean Corpuscular Volume 82 fl (79-97); Monocytes # (Auto) 0.5 K/mm3 (0.0-0.8); Monocytes % (Auto) 6.2 % (0.0-7.3); Platelet Count 225 K/mm3 (140-440); Red Blood Count 4.85 M/mm3 (3.65-5.03); Red Cell Distribution Width 15.1 % (13.2-15.2)
[2019-01-06 21:14] LABS: Alanine Aminotransferase 13 units/L (7-56); BUN/Creatinine Ratio 10; Blood Urea Nitrogen 8 mg/dL (7-17); Hemolysis Index 4
[2019-01-06] MEDS ORDERED: K-DUR PO ONE (21:20)
[2019-01-06] MEDS ORDERED: NACL 0.9% 1000 ML 1,000 ML ONE (21:26)
[2019-01-06] MEDS: KCL 10MEQ/100ML 10 MEQ/100 ML BAG IV SCH ×2 (22:18→23:51)
[2019-01-06 22:20] LABS: Bilirubin,Urine NEG (Negative); Blood,Urine NEG (Negative); Calcium Oxalate Crystals,Urine 1+; Color,Urine Yellow (Yellow); Mucus,Urine FEW /HPF; Protein,Urine <15 mg/dL mg/dL (Negative); Urobilinogen,Urine < 2.0 mg/dL (<2.0)
--- NOTE | 2019-01-06 22:43 | Cat Scan Report ---
PROCEDURE: CT ABDOMEN PELVIS W CON TECHNIQUE: Computerized axial tomography of the abdomen and pelvis was performed after the IV inject ion of iodinated nonionic contrast. CT DOSE LENGTH PRODUCT: 3527.5 mGycm HISTORY: right sided abd pain COMPARISONS: None . FINDINGS: Liver, spleen, pancreas and bilateral adrenal glands are within normal limits. Bilateral kidneys demo nstrate uniform enhancement without hydronephrosis. Aorta is of normal caliber. Status post cholecyst ectomy. Small bowel loops are within normal limits. Appendix is normal. Vertebral height is normal. A 3 cm cystic lesion is noted in the right adnexal region. IMPRESSION: 3 cm cystic lesion in the right adnexal region most likely represents a dominant follicle versus ovar yudith cyst. Ultrasound evaluation may be recommended. This document is electronically signed by William Keenan MD., Jan 06 2019 10:41:24 PM ET
== END 2019-01-07 02:00 | disposition home or self-care (01) ==
LOC: ED 19:53
DX: R10.9 Unspecified abdominal pain (principal)
CPT/HCPCS: 36415; 74177; 80053; 81001; 83690; 83735; 85025; 93005; 93010; 96365; 96366; 96375; 99284; J2270; J3480; J7030; Q9967

== ENCOUNTER 2019-01-21 22:17 | Emergency (ER) | payer MEDICARE ==
--- NOTE | 2019-01-21 22:33 | Emergency Department Report ---
Blank Doc - Documentation Documentation: This is a 48-year-old female that presents with generalized weakness and hypog lyemia at times at home. This initial assessment/diagnostic orders/clinical plan/treatment(s) is/are subject to change based on patient's health status, clinical progression and re- assessment by fellow clinical providers in the ED. Further treatment and workup at subsequent clinical providers discretion. Patient/guardians urged not to elope from the ED as their condition may be serious if not clinically assessed and managed. Initial orders include: 1- Patient sent to MAIN ED for further evaluation and treatment 2- labs 3- UA
[2019-01-21] MEDS ORDERED: ZOFRAN IM ONE (23:05)
[2019-01-21] MEDS ORDERED: SUBLIMAZE IM ONE (23:05)
--- NOTE | 2019-01-21 23:12 | Emergency Department Report ---
HPI - General Chief Complaint: Hypoglycemia Time Seen by Provider: 01/21/19 22:31 - HPI HPI: Room 1 The patient is a 48-year-old female presenting with a chief complaint of chronic leg pain, shaking and hypoglycemia. The patient states she has had chronic bilateral lower extremity pain all of her life. The patient states she was saw vascular surgeon (Dr. Melton) who is planning on doing a "venous closure" per the patient. Patient states one the reason she came to the ED is because her chronic pain is bothering her. The patient also believes her blood sugar has dropped today. When asked why she believes she became hypoglycemic patient states she checked her blood sugar and it was 88. The patient satiety honeybun and her blood sugar increased to 120 and then eventually decreased back to 87. Patient states she has a history of prediabetes and is not currently taking any hypoglycemics. Patient also states she's had some tremors tonight. The patient states in the past this has been attributed to her psychiatric diagnoses and medications. Patient denies any history of fever Location: [See above] Duration: [See above] Quality: [See above] Severity: [See above] Modifying factors: [see above] Context: [see above] Mode of transportation: [not driving] ED Past Medical Hx - Past Medical History Previous Medical History?: Yes Hx Hypertension: Yes Hx Congestive Heart Failure: Yes (2013) Hx Deep Vein Thrombosis: Yes Hx Psychiatric Treatment: Yes (Bipolar Depressed schizo affective) Hx Asthma: Yes Additional medical history: Hypothyroidism, sleep apnea, DVT, Chronic Back pain, Gastritis, IBS. Hyperlipidemia, Ovarian cyst. Stubbs's palsey - Surgical History Past Surgical History?: Yes Hx Cholecystectomy: Yes Additional Surgical History: Tonsilectomy, Uterine Ablation, Hernia repair, D&C. 2 molar pulled. stiched to nasal cavity. Right Rotator cuff repair. - Family History Family history: no significant - Social History Smoking Status: Never Smoker Substance Use Type: None - Medications Home Medications: Home Medications Medication Instructions Recorded Confirmed Last Taken Type OLANZapine [Zyprexa] 15 mg PO DAILY 11/04/18 12/27/18 12/26/18 09:00 History Zolpidem [Ambien] 5 mg PO QHS PRN 11/04/18 12/27/18 12/25/18 22:00 History Famotidine [Pepcid] 20 mg PO DAILY #30 tablet 12/01/18 12/27/18 12/26/18 09:00 Rx Fluticasone Propionate [Flovent 50 mcg IH Q6H PRN 12/20/18 12/27/18 12/26/18 22:00 History Diskus] Fluticasone [Flonase] 1 spray NS QDAY 12/20/18 12/27/18 12/26/18 09:00 History Furosemide [Lasix TAB] 40 mg PO QDAY 12/20/18 12/27/18 12/26/18 09:00 History Nitroglycerin [Nitrostat] 0.4 mg SL Q5MIN PRN MDD 3 12/20/18 12/27/18 12/26/18 22:00 History Rivaroxaban [Xarelto] 10 mg PO QDAY 12/20/18 12/27/18 12/26/18 09:00 History Spironolactone [Aldactone] 25 mg PO QDAY 12/20/18 12/27/18 12/26/18 09:00 History Gabapentin [Neurontin] 100 mg PO Q8HR #30 capsule 12/28/18 Unknown Rx diphenhydrAMINE [Benadryl CAP] 25 mg PO Q8HR PRN #7 capsule 12/28/18 Unknown Rx predniSONE [Deltasone] 50 mg PO QDAY #4 tab 12/28/18 Unknown Rx Dicyclomine [Bentyl] 10 mg PO QID PRN #20 capsule 01/06/19 Unknown Rx levoFLOXacin [Levaquin TAB] 500 mg PO QDAY #7 tablet 01/22/19 Unknown Rx traMADol [Ultram] 50 mg PO Q6HR PRN #10 tablet 01/22/19 Unknown Rx ED Review of Systems ROS: Stated complaint: LOW BLOOD GLUCOSE Other details as noted in HPI Constitutional: no symptoms reported. denies: fever Eyes: denies: eye pain ENT: denies: throat pain Respiratory: no symptoms reported Cardiovascular: denies: chest pain Endocrine: no symptoms reported Gastrointestinal: denies: abdominal pain Genitourinary: denies: dysuria Musculoskeletal: myalgia Neurological: denies: headache Physical Exam - Physical Exam Vital Signs: Vital Signs 01/21/19 22:33 Temperature 97.7 F Pulse Rate 68 Respiratory 18 Rate Blood Pressure 119/65 O2 Sat by Pulse 100 Oximetry Physical Exam: GENERAL: The patient is well-developed well-nourished female lying on stretcher not appearing to be in acute distress. [] HEENT: Normocephalic. Atraumatic. Extraocular motions are intact. Patient has moist mucous membranes. NECK: Supple. Trachea midline CHEST/LUNGS: Clear to auscultation. There is no respiratory distress noted. HEART/CARDIOVASCULAR: Regular. There is no tachycardia. There is no gallop rub or murmur. 2+ DPs bilaterally ABDOMEN: Abdomen is soft, nontender. Patient has normal bowel sounds. There is no abdominal distention. SKIN: There is no rash. There is bilateral pedal edema. There is no diaphoresis. NEURO: The patient is awake, alert, and oriented. The patient is cooperative. No tremulousness noted. The patient has normal speech MUSCULOSKELETAL: There is no evidence of acute injury. ED Course Vital Signs 01/21/19 22:33 Temperature 97.7 F Pulse Rate 68 Respiratory 18 Rate Blood Pressure 119/65 O2 Sat by Pulse 100 Oximetry ED Medical Decision Making - Lab Data Result diagrams: 01/21/19 23:13 01/21/19 23:13 Laboratory Tests 01/21/19 01/21/19 01/21/19 22:37 23:13 23:13 WBC 8.7 RBC 4.45 Hgb 12.0 Hct 37.0 MCV 83 MCH 27 L MCHC 33 RDW 15.4 H Plt Count 284 Lymph % (Auto) 24.0 Gonzales % (Auto) 6.6 Eos % (Auto) 3.1 Baso % (Auto) 0.6 Lymph # 2.1 Gonzales # 0.6 Eos # 0.3 Baso # 0.1 Seg Neutrophils % 65.7 Seg Neutrophils # 5.7 VBG pH Sodium 140 Potassium 4.1 Chloride 102.3 Carbon Dioxide 28 Anion Gap 14 BUN 10 Creatinine 0.8 Estimated GFR > 60 BUN/Creatinine Ratio 13 Glucose 91 POC Glucose 87 Calcium 9.4 Total Bilirubin 0.20 AST 16 ALT 13 Alkaline Phosphatase 96 Total Protein 6.9 Albumin 4.0 Albumin/Globulin Ratio 1.4 Urine Color Urine Turbidity Urine pH Ur Specific [place] Urine Protein Urine Glucose (UA) Urine Ketones Urine Blood Urine Nitrite Urine Bilirubin Urine Urobilinogen Ur Leukocyte Esterase Urine WBC (Auto) Urine RBC (Auto) U Epithel Cells (Auto) Urine Bacteria (Auto) Urine Mucus Urine Yeast (Budding) 01/21/19 01/21/19 01/22/19 23:13 23:15 00:58 WBC RBC Hgb Hct MCV MCH MCHC RDW Plt Count Lymph % (Auto) Gonzales % (Auto) Eos % (Auto) Baso % (Auto) Lymph # Gonzales # Eos # Baso # Seg Neutrophils % Seg Neutrophils # VBG pH 7.284 L 7.320 Sodium Potassium Chloride Carbon Dioxide Anion Gap BUN Creatinine Estimated GFR BUN/Creatinine Ratio Glucose POC Glucose Calcium Total Bilirubin AST ALT Alkaline Phosphatase Total Protein Albumin Albumin/Globulin Ratio Urine Color Yellow Urine Turbidity Cloudy Urine pH 5.0 Ur Specific [place] 1.017 Urine Protein <15 mg/dl Urine Glucose (UA) Neg Urine Ketones Neg Urine Blood Neg Urine Nitrite Neg Urine Bilirubin Neg Urine Urobilinogen < 2.0 Ur Leukocyte Esterase Lg Urine WBC (Auto) 29.0 H Urine RBC (Auto) 10.0 U Epithel Cells (Auto) 14.0 H Urine Bacteria (Auto) 4+ Urine Mucus 1+ Urine Yeast (Budding) 2+ - Differential Diagnosis anxiety, chronic pain, UTI, electrolyte abnormality Critical care attestation.: If time is entered above; I have spent that time in minutes in the direct care of this critically ill patient, excluding procedure time. ED Disposition Clinical Impression: Chronic leg pain, UTI (urinary tract infection) Disposition: TO HOME OR SELFCARE Is pt being admited?: No Does the pt Need Aspirin: No Condition: Stable Additional Instructions: Return to the emergency department immediately should you develop worsening symptoms, fever, inability to tolerate food or liquid or any other concerns. Prescriptions: levoFLOXacin [Levaquin TAB] 500 mg PO QDAY #7 tablet traMADol [Ultram] 50 mg PO Q6HR PRN #10 tablet PRN Reason: Pain Referrals: JACQUELINE ANDERSON MD [Primary Care Provider] - 3-5 Days Time of Disposition:
[2019-01-21 23:30] LABS: Basophils # (Auto) 0.1 K/mm3 (0.0-0.1); Basophils % (Auto) 0.6 % (0.0-1.8); Eosinophils # (Auto) 0.3 K/mm3 (0.0-0.4); Eosinophils % (Auto) 3.1 % (0.0-4.3); Lymphocytes # (Auto) 2.1 K/mm3 (1.2-5.4); Mean Corpuscular HGB Conc 33 % (30-34); Mean Corpuscular Volume 83 fl (79-97); Monocytes # (Auto) 0.6 K/mm3 (0.0-0.8); Monocytes % (Auto) 6.6 % (0.0-7.3); Platelet Count 284 K/mm3 (140-440); Red Blood Count 4.45 M/mm3 (3.65-5.03); Red Cell Distribution Width 15.4 % (13.2-15.2)
[2019-01-21 23:55] LABS: Alanine Aminotransferase 13 units/L (7-56); BUN/Creatinine Ratio 13; Blood Urea Nitrogen 10 mg/dL (7-17); Calcium 9.4 mg/dL (8.4-10.2); Hemolysis Index 0
[2019-01-22] LABS: Bacteria,Urine 4+ /HPF (Negative); Bilirubin,Urine NEG (Negative); Blood,Urine NEG (Negative); Color,Urine Yellow (Yellow); Mucus,Urine 1+ /HPF; Protein,Urine <15 mg/dL mg/dL (Negative); Urobilinogen,Urine < 2.0 mg/dL (<2.0)
[2019-01-22] MEDS ORDERED: NACL 0.9% 1000 ML 1,000 ML IV ONE (00:14)
[2019-01-22 01:51] VITALS: BP 112/61
== END 2019-01-22 01:51 | disposition home or self-care (01) ==
LOC: ED 22:17
DX: G89.29 Other chronic pain (principal); M79.662 Pain in left lower leg; M79.661 Pain in right lower leg; N39.0 Urinary tract infection, site not specified; R25.1 Tremor, unspecified; E16.2 Hypoglycemia, unspecified; I11.0 Hypertensive heart disease with heart failure; I50.9 Heart failure, unspecified; Z86.718 Personal history of other venous thrombosis and embolism; F31.9 Bipolar disorder, unspecified; F25.9 Schizoaffective disorder, unspecified; J45.909 Unspecified asthma, uncomplicated; E03.9 Hypothyroidism, unspecified; E78.5 Hyperlipidemia, unspecified; Z90.49 Acquired absence of other specified parts of digestive tract; Z90.89 Acquired absence of other organs; Z87.42 Personal history of other diseases of the female genital tract; Z86.69 Personal history of other diseases of the nervous system and sense organs; Z88.6 Allergy status to analgesic agent; Z88.5 Allergy status to narcotic agent; Z88.1 Allergy status to other antibiotic agents; Z88.8 Allergy status to other drugs, medicaments and biological substances
CPT/HCPCS: 36415; 80053; 81001; 82805; 82962; 85025; 87086; 96372; 99283; J2405; J3010; J7030

== ENCOUNTER 2019-01-23 19:27 | Emergency (ER) | payer MEDICARE ==
[2019-01-23] MEDS ORDERED: ULTRAM PO ONE (23:54)
--- NOTE | 2019-01-24 01:18 | Emergency Department Report ---
ED General Adult HPI - General Chief complaint: Extremity Injury, Lower Stated complaint: BILATERAL LEG EDEMA/PAIN Time Seen by Provider: 01/23/19 23:35 Source: patient, RN notes reviewed, old records reviewed Mode of arrival: Ambulatory Limitations: No Limitations - History of Present Illness Initial comments: Starr Denis ARLENE 1970 [id number] Room 3. This is a 48-year-old female whom I have evaluated in the past. Her past medical history includes schizoaffective disorder, bipolar, asthma, question congestive heart failure, hypothyroidism, DVT, on systemic anticoagulation, IBS and gastritis. Her primary care doctor is Dr. Flores. She also has a history of recently diagnosed lymphedema, and is following with a local vascular surgeon by the name of Dr. Melton. Reportedly, her vascular surgeon is planning on doing a venous closure procedure on the patient. Today, the patient presents to the emergency room with a complaint of acute on chronic bilateral lower extremity swelling, arthralgia, left-sided plantar foot pain. The patient presents to this department for similar symptoms on 01/21/2019. Please see her previous medical records from a few days ago. Today, she makes no complete of headache, neck pain, chest pain, abdominal pain, shortness of breath. Her pain is burning, crampy, achy and sharp. It increases with palpation, range of motion, prolonged standing, and it decreases with rest. She believes that she may have had plantar fasciitis in the past, and indicates that her left plantar foot pain feels similar. Denies other injuries, denies other complaints. -: Gradual Location: left, right, lower extremity Radiation: non-radiation Quality: aching Consistency: constant Improves with: rest Worsens with: movement - Related Data Home Medications Medication Instructions Recorded Confirmed Last Taken OLANZapine [Zyprexa] 15 mg PO DAILY 11/04/18 12/27/18 12/26/18 09:00 Zolpidem [Ambien] 5 mg PO QHS PRN 11/04/18 12/27/18 12/25/18 22:00 Fluticasone Propionate [Flovent 50 mcg IH Q6H PRN 12/20/18 12/27/18 12/26/18 22:00 Diskus] Fluticasone [Flonase] 1 spray NS QDAY 0512/27/18 12/26/18 09:00 Furosemide [Lasix TAB] 40 mg PO QDAY 12/20/18 12/27/18 12/26/18 09:00 Nitroglycerin [Nitrostat] 0.4 mg SL Q5MIN PRN MDD 3 12/20/18 12/27/18 12/26/18 22:00 Rivaroxaban [Xarelto] 10 mg PO QDAY 12/20/18 12/27/18 12/26/18 09:00 Spironolactone [Aldactone] 25 mg PO QDAY 12/20/18 12/27/18 12/26/18 09:00 Previous Rx's Medication Instructions Recorded Last Taken Type Famotidine [Pepcid] 20 mg PO DAILY #30 tablet 12/01/18 12/26/18 09:00 Rx Gabapentin [Neurontin] 100 mg PO Q8HR #30 capsule 12/28/18 Unknown Rx diphenhydrAMINE [Benadryl CAP] 25 mg PO Q8HR PRN #7 capsule 12/28/18 Unknown Rx predniSONE [Deltasone] 50 mg PO QDAY #4 tab 12/28/18 Unknown Rx Dicyclomine [Bentyl] 10 mg PO QID PRN #20 capsule 01/06/19 Unknown Rx levoFLOXacin [Levaquin TAB] 500 mg PO QDAY #7 tablet 01/22/19 Unknown Rx traMADol [Ultram] 50 mg PO Q6HR PRN #10 tablet 01/22/19 Unknown Rx Allergies Allergy/AdvReac Type Severity Reaction Status Date / Time acetaminophen [From Lortab] Allergy Unknown Verified 12/26/18 18:35 aspirin Allergy Unknown Verified 12/26/18 18:35 divalproex sodium Allergy Rash Verified 12/27/18 01:28 [From Depakote] hydrocodone [From Lortab] Allergy Unknown Verified 12/26/18 18:35 latex Allergy Unknown Verified 12/26/18 18:35 nut - unspecified Allergy Unknown Verified 12/26/18 18:35 oxycodone Allergy Unknown Verified 12/26/18 18:35 Penicillins Allergy Rash Verified 12/26/18 18:35 propoxyphene Allergy Rash Verified 12/26/18 18:35 [From Darvocet-N] Sulfa (Sulfonamide Allergy Rash Verified 12/26/18 18:35 Antibiotics) dairy Allergy Unknown Uncoded 11/15/18 05:54 napsylate Allergy Rash Uncoded 11/04/18 05:11 ED Review of Systems ROS: Stated complaint: BILATERAL LEG EDEMA/PAIN Other details as noted in HPI Constitutional: denies: fever Eyes: denies: eye discharge ENT: denies: epistaxis Respiratory: denies: cough Cardiovascular: denies: chest pain Gastrointestinal: denies: abdominal pain Genitourinary: denies: dysuria Musculoskeletal: joint swelling, arthralgia, myalgia Skin: denies: lesions Neurological: weakness Psychiatric: anxiety ED Past Medical Hx - Past Medical History Hx Hypertension: Yes Hx Congestive Heart Failure: Yes (2013) Hx Deep Vein Thrombosis: Yes Hx Psychiatric Treatment: Yes (Bipolar Depressed schizo affective) Hx Asthma: Yes Additional medical history: Hypothyroidism, sleep apnea, DVT, Chronic Back pain, Gastritis, IBS. Hyperlipidemia, Ovarian cyst. Stubbs's palsey - Surgical History Hx Cholecystectomy: Yes Additional Surgical History: Tonsilectomy, Uterine Ablation, Hernia repair, D&C. 2 molar pulled. stiched to nasal cavity. Right Rotator cuff repair. - Social History Smoking Status: Never Smoker Substance Use Type: None - Medications Home Medications: Home Medications Medication Instructions Recorded Confirmed Last Taken Type OLANZapine [Zyprexa] 15 mg PO DAILY 11/04/18 12/27/18 12/26/18 09:00 History Zolpidem [Ambien] 5 mg PO QHS PRN 11/04/18 12/27/18 12/25/18 22:00 History Famotidine [Pepcid] 20 mg PO DAILY #30 tablet 12/01/18 12/27/18 12/26/18 09:00 Rx Fluticasone Propionate [Flovent 50 mcg IH Q6H PRN 12/20/18 12/27/18 12/26/18 22:00 History Diskus] Fluticasone [Flonase] 1 spray NS QDAY 12/20/18 12/27/18 12/26/18 09:00 History Furosemide [Lasix TAB] 40 mg PO QDAY 12/20/18 12/27/18 12/26/18 09:00 History Nitroglycerin [Nitrostat] 0.4 mg SL Q5MIN PRN MDD 3 12/20/18 12/27/18 12/26/18 22:00 History Rivaroxaban [Xarelto] 10 mg PO QDAY 12/20/18 12/27/18 12/26/18 09:00 History Spironolactone [Aldactone] 25 mg PO QDAY 12/20/18 12/27/18 12/26/18 09:00 History Gabapentin [Neurontin] 100 mg PO Q8HR #30 capsule 12/28/18 Unknown Rx diphenhydrAMINE [Benadryl CAP] 25 mg PO Q8HR PRN #7 capsule 12/28/18 Unknown Rx predniSONE [Deltasone] 50 mg PO QDAY #4 tab 12/28/18 Unknown Rx Dicyclomine [Bentyl] 10 mg PO QID PRN #20 capsule 01/06/19 Unknown Rx levoFLOXacin [Levaquin TAB] 500 mg PO QDAY #7 tablet 01/22/19 Unknown Rx traMADol [Ultram] 50 mg PO Q6HR PRN #10 tablet 01/22/19 Unknown Rx ED Physical Exam - General Limitations: No Limitations General appearance: alert, anxious, obese - Head Head exam: Present: atraumatic, normocephalic - Eye Eye exam: Present: normal appearance, EOMI. Absent: nystagmus - ENT ENT exam: Present: normal exam, normal orophraynx, mucous membranes moist, normal external ear exam - Neck Neck exam: Present: normal inspection, full ROM. Absent: tenderness, meningismus - Respiratory Respiratory exam: Present: normal lung sounds bilaterally. Absent: respiratory distress - Cardiovascular Cardiovascular Exam: Present: regular rate, normal rhythm, normal heart sounds. Absent: bradycardia, tachycardia, irregular rhythm, systolic murmur, diastolic murmur, rubs, gallop - GI/Abdominal GI/Abdominal exam: Present: soft. Absent: distended, tenderness, guarding, rebound, rigid, pulsatile mass - Extremities Exam Extremities exam: Present: normal inspection, full ROM, tenderness (there is bilateral plantar foot tenderness, left greater than right), pedal edema, other (2+ pulses noted in the bilateral upper, lower extremities. Compartments soft. No long bony tenderness. The pelvis is stable.). Absent: calf tenderness - Back Exam Back exam: Present: normal inspection, full ROM. Absent: tenderness, CVA tenderness (R), CVA tenderness (L), paraspinal tenderness, vertebral tenderness - Neurological Exam Neurological exam: Present: alert, oriented X3, normal gait, other (Extraocular movements intact. Tongue midline. No facial droop. Facial sensation intact to light touch in the V1, V2, V3 distribution bilaterally. 5 and 5 strength in 4 extremities.. Sensation is intact to light touch in 4 extremities.). Absent: motor sensory deficit - Psychiatric Psychiatric exam: Present: anxious - Skin Skin exam: Present: warm, dry, intact, normal color. Absent: rash ED Course - Reevaluation(s) Reevaluation #1: 01/24/19 01:16 Blood pressure: 145/73 heart rate: 54 bpm respiratory rate: 16 breaths per minute. Saturating at 100% on room air. Temperature: 98.6F. Assessment and plan: 48-year-old female who is ambulatory with a steady gait, with unremarkable vital signs, essentially chronically unchanged physical exam, with reproducible left-sided plantar foot pain, no tachycardia, no hypoxia, saturating at 100% on room air. She is following up with an outpatient vascular surgeon. Counseled the patient on expectant management for plantar fasciitis, and chronic lymphedema. Patient has numerous chronic allergies to multiple pain medications. Patient denied discussed nonnarcotic, nonpharmaceutical ways to treat her lower extremity pain, including massage therapy, acupuncture, weightbearing as tolerated, nonweightbearing physical activity such as swimming in a pool, and she will be discharged with a short course of tramadol, which as per her previous medical records, she is able to tolerate. Critical care attestation.: If time is entered above; I have spent that time in minutes in the direct care of this critically ill patient, excluding procedure time. ED Disposition Clinical Impression: Lymphedema Foot pain Qualifiers: Laterality: unspecified laterality Qualified Code(s): M79.673 - Pain in unspecified foot Leg pain Qualifiers: Laterality: unspecified laterality Qualified Code(s): M79.606 - Pain in leg, unspecified Disposition: -01 TO HOME OR SELFCARE Is pt being admited?: No Does the pt Need Aspirin: No Condition: Stable Additional Instructions: Starr Denis 1970 MEDICAL [place] NUMBER: [id number] Discharge diagnosis: Acute on chronic left plantar foot pain, chronic lower extremity pain, chronic lymphedema Rest, avoid heavy lifting, and avoid strenuous physical activities. Weightbearing as tolerated. Follow-up with a primary care doctor for outpatient referral to physical therapy, as well as an orthotic specialist for evaluation for heel inserts. Follow-up with your vascular surgeon within the next 2 weeks. Patient may consider massage therapy, acupuncture, physical therapy, to assist with her chronic pain. Please continue current outpatient medications. Please return to the emergency room right away with new pain, worsened pain, migration of pain, projectile vomiting, change in mental status, confusion, inability to tolerate liquid feeds, new, worsening or different symptoms not present on the initial emergency room evaluation. Referrals: JOIE REYNA MD [Staff Physician] - 3-5 Days
== END 2019-01-24 03:49 | disposition home or self-care (01) ==
LOC: ED 19:27
DX: I89.0 Lymphedema, not elsewhere classified (principal); M79.672 Pain in left foot; I11.0 Hypertensive heart disease with heart failure; I50.9 Heart failure, unspecified; F31.9 Bipolar disorder, unspecified; E03.9 Hypothyroidism, unspecified; F25.9 Schizoaffective disorder, unspecified; G89.29 Other chronic pain; M54.9 Dorsalgia, unspecified; E78.5 Hyperlipidemia, unspecified; J45.909 Unspecified asthma, uncomplicated; G51.0 Bell's palsy; Z90.49 Acquired absence of other specified parts of digestive tract; Z90.89 Acquired absence of other organs; Z88.6 Allergy status to analgesic agent; Z88.8 Allergy status to other drugs, medicaments and biological substances; Z86.718 Personal history of other venous thrombosis and embolism; Z79.01 Long term (current) use of anticoagulants; Z91.018 Allergy to other foods; Z91.040 Latex allergy status; Z79.899 Other long term (current) drug therapy; Z98.890 Other specified postprocedural states; Z88.2 Allergy status to sulfonamides; Z91.011 Allergy to milk products; Z88.5 Allergy status to narcotic agent
CPT/HCPCS: 99282

== ENCOUNTER 2019-02-01 09:37 | Inpatient (IN) | payer MEDICARE ==
[2019-02-01 11:09] LABS: Hematocrit 36.3 % (30.3-42.9); Hemoglobin 11.8 gm/dl (10.1-14.3); Mean Corpuscular HGB Conc 33 % (30-34); Mean Corpuscular Volume 83 fl (79-97); Platelet Count 251 K/mm3 (140-440); Red Blood Count 4.36 M/mm3 (3.65-5.03); Red Cell Distribution Width 15.5 % (13.2-15.2)
[2019-02-01 11:11] LABS: Alanine Aminotransferase 15 units/L (7-56); Albumin 3.8 g/dL (3.9-5); BUN/Creatinine Ratio 13; Blood Urea Nitrogen 12 mg/dL (7-17); Calcium 8.8 mg/dL (8.4-10.2); Hemolysis Index 8
[2019-02-01] MEDS ORDERED: PNEUMOVAX 23 IM ONE (12:00)
--- NOTE | 2019-02-01 12:27 | Cat Scan Report ---
CT HEAD WITHOUT CONTRAST: HISTORY: Stroke symptoms. TECHNIQUE: Sequential 2.5mm CT images. COMPARISON: 12/26/18. FINDINGS: Cerebral Parenchyma: Within normal limits. Cerebellum: Within normal limits. Brainstem: Within normal limits. Ventricles: Normal. Sella: Normal. Extra-axial spaces: Normal. Basal Cisterns: Normal. Intracranial Hemorrhage: None. Midline Shift: None. Calvarium: Normal. Sinuses: Normal. Mastoid Air Cells: Normal. Visualized Orbits: Normal. IMPRESSION: Cranial CT scan within normal limits.
[2019-02-01 12:44] LABS: Basophils % (Auto) 0.5 % (0.0-1.8); Eosinophils # (Auto) 0.1 K/mm3 (0.0-0.4); Eosinophils % (Auto) 1.6 % (0.0-4.3); Hematocrit 37.5 % (30.3-42.9); Hemoglobin 12.1 gm/dl (10.1-14.3); Lymphocytes # (Auto) 1.9 K/mm3 (1.2-5.4); Lymphocytes % (Auto) 24.8 % (13.4-35.0); Mean Corpuscular HGB Conc 32 % (30-34); Mean Corpuscular Volume 83 fl (79-97); Monocytes # (Auto) 0.4 K/mm3 (0.0-0.8); Monocytes % (Auto) 5.9 % (0.0-7.3); Platelet Count 225 K/mm3 (140-440); Red Cell Distribution Width 15.3 % (13.2-15.2)
[2019-02-01 12:51] LABS: INR 1.48 (0.87-1.13)
[2019-02-01 12:52] LABS: Partial Thromboplastin Time 48.6 Sec. (24.2-36.6); Thrombin Time 16.1 Sec. (15.1-19.6)
[2019-02-01 13:03] LABS: Creatine Kinase MB 1.4 ng/mL (0.0-4.0)
--- NOTE | 2019-02-01 14:13 | Emergency Department Report ---
HPI - General Chief Complaint: Neuro Symptoms/Deficit Time Seen by Provider: 02/01/19 11:58 - HPI HPI: 48-year-old female presents to ED with left facial droop, right arm weakness, numbness, flutter past 2 days. Patient was seen yesterday by home health nurse, who told her that she was having a stroke. Patient thought her symptoms would be better, but continued to be worsen, today she started having worsening right arm numbness, differential presented to ED for further evaluation. She has a history of DVTs, on anticoagulant, she recently had venous procedures in both legs, Tuesday, 6 days ago. Denies any chest pain, shortness of breath, nausea or vomiting. ED Past Medical Hx - Past Medical History Hx Hypertension: Yes Hx Congestive Heart Failure: Yes (2013) Hx Deep Vein Thrombosis: Yes Hx Psychiatric Treatment: Yes (Bipolar Depressed schizo affective) Hx Asthma: Yes Additional medical history: Hypothyroidism, sleep apnea, DVT, Chronic Back pain, Gastritis, IBS. Hyperlipidemia, Ovarian cyst. Stubbs's palsey - Surgical History Hx Cholecystectomy: Yes Additional Surgical History: Tonsilectomy, Uterine Ablation, Hernia repair, D&C. 2 molar pulled. stiched to nasal cavity. Right Rotator cuff repair. - Social History Smoking Status: Never Smoker - Medications Home Medications: Home Medications Medication Instructions Recorded Confirmed Last Taken Type Nitroglycerin [Nitrostat] 0.4 mg SL Q5MIN PRN MDD 3 12/20/18 02/19/19 02/18/19 History Rivaroxaban [Xarelto] 10 mg PO DAILY 12/20/18 02/19/19 02/19/19 History Spironolactone [Aldactone] 25 mg PO DAILY 12/20/18 02/19/19 02/19/19 History ALBUTEROL Inhaler (OR & NICU) 2 puff IH Q4-6H PRN 02/01/19 02/19/19 02/15/19 History [ProAir HFA Inhaler] ARIPiprazole [Abilify] 30 mg PO DAILY 02/01/19 02/19/19 02/19/19 History Carvedilol [Coreg] 6.25 mg PO BID 02/01/19 02/19/19 02/18/19 History Levothyroxine [Synthroid] 125 mcg PO DAILY 02/01/19 02/19/19 02/19/19 History OLANzapine [ZyPREXA] 5 mg PO DAILY 02/01/19 02/19/19 02/18/19 History Pantoprazole [Protonix TAB] 40 mg PO DAILY 02/01/19 02/19/19 02/19/19 History Potassium Chloride [K-Dur] 40 meq PO TID 02/01/19 02/19/19 02/19/19 History Sucralfate [Carafate] 1 gm PO QID 02/01/19 02/19/19 02/18/19 History clonazePAM [Klonopin] 1 mg PO TID 02/01/19 02/19/19 02/19/19 History Fluticasone Propionate [Flovent 2 puff IH DAILY 02/19/19 02/19/19 02/19/19 History Hfa] Fluticasone [Flonase] 1 spray NS QDAY 02/19/19 02/19/19 02/19/19 History ED Review of Systems ROS: Stated complaint: NUMBNESS/NOSE BLEED Other details as noted in HPI Comment: All other systems reviewed and negative ENT: denies: ear pain Respiratory: denies: cough Gastrointestinal: denies: abdominal pain Skin: denies: rash Neurological: weakness Psychiatric: anxiety Physical Exam - Physical Exam Vital Signs: Vital Signs 02/01/19 02/01/19 12:04 12:10 Temperature 98.6 F Pulse Rate 56 L Respiratory 15 14 Rate Blood Pressure 128/75 [Left] O2 Sat by Pulse 100 100 Oximetry Physical Exam: Physical Exam: - General Limitations: No Limitations General appearance: alert, in no apparent distress, obese - Head Head exam: Present: atraumatic, normocephalic - Eye Eye exam: Present: normal appearance - ENT ENT exam: Present: mucous membranes moist - Neck Neck exam: Present: normal inspection - Respiratory Respiratory exam: Present: normal lung sounds bilaterally. Absent: respiratory distress - Cardiovascular Cardiovascular Exam: Present: normal rhythm. Absent: systolic murmur, diastolic murmur, rubs, gallop - GI/Abdominal GI/Abdominal exam: Present: soft, normal bowel sounds - Extremities Exam Extremities exam: Present: normal inspection - Back Exam Back exam: Present: normal inspection - Neurological Exam Neurological exam: Present: Right arm weakness, 4-5, paresthesia accompanied. L,facial droop. NIH score is 2 - Psychiatric Psychiatric exam: normal affect and mood - Skin Skin exam: Present: warm, dry, intact, normal color. Absent: rash ED Course Vital Signs 02/01/19 02/01/19 12:04 12:10 Temperature 98.6 F Pulse Rate 56 L Respiratory 15 14 Rate Blood Pressure 128/75 [Left] O2 Sat by Pulse 100 100 Oximetry - Reevaluation(s) Reevaluation #1: 02/01/19 14:54 Will be admitted to the hospitalist service, denies any new complaints ED Medical Decision Making - Lab Data Result diagrams: 02/01/19 12:25 02/02/19 06:56 - Medical Decision Making 48-year-old female with 2 day history of left facial droop or weakness. NIH score of 2, however this patient is not a TPA candidate since her symptoms is about 48 hours old. She is also out of the window for thrombectomy. She will be admitted to the hospitalist service, differential diagnosis include TIA, CVA, Stubbs's palsy, case was discussed with hospitalist who agreed with plan. Critical care attestation.: If time is entered above; I have spent that time in minutes in the direct care of this critically ill patient, excluding procedure time. ED Disposition Clinical Impression: Acute CVA (cerebrovascular accident) Disposition: [id number] OP ADMIT IP TO THIS HOSP Is pt being admited?: Yes Does the pt Need Aspirin: Yes Condition: Fair
[2019-02-01] MEDS ORDERED: ZOFRAN ONE (16:57)
[2019-02-01] MEDS ORDERED: ZOFRAN IV PRN ×2 (17:10→21:35)
[2019-02-01 19:42] LABS: HCG Qualitative,Urine Negative (Negative)
[2019-02-01 19:43] LABS: Bacteria,Urine 1+ /HPF (Negative); Bilirubin,Urine NEG (Negative); Blood,Urine NEG (Negative); Color,Urine Yellow (Yellow); Protein,Urine <15 mg/dL mg/dL (Negative); Urobilinogen,Urine < 2.0 mg/dL (<2.0)
[2019-02-01] MEDS ORDERED: PERCOCET 5/325 PO PRN (21:35)
[2019-02-01] MEDS ORDERED: TYLENOL PO PRN (21:35)
[2019-02-01] MEDS ORDERED: REGLAN IV PRN (21:35)
[2019-02-01] MEDS ORDERED: SODIUM CHLORIDE FLUSH SYRINGE 10 ML IV PRN ×2 (21:35→21:38)
[2019-02-01] MEDS ORDERED: NACL 0.9% 1000 ML 1,000 ML IV SCH (22:00)
[2019-02-01] MEDS ORDERED: PEPCID PO SCH (22:00)
[2019-02-01] MEDS: DILAUDID IV PRN (22:01)
[2019-02-01] MEDS: SODIUM CHLORIDE FLUSH SYRINGE 10 ML IV SCH (22:03)
[2019-02-01] MEDS ORDERED: ULTRAM PO PRN (23:00)
--- NOTE | 2019-02-02 06:25 | History and Physical Report ---
History of Present Illness Date of examination: 02/01/19 Date of admission: 02/01/19 15:23 Chief complaint: Rt side weakness 1 day History of present illness: -48 y/o year-old female presents to ED for Right facial weakness and right arm weakness, for past 2 days. Patient was seen yesterday by home health nurse, who told her that she was having a stroke. Patient thought her symptoms would be better, but continued to worsen.Today she started having worsening right arm numbness, presented to ED for further evaluation. She has a history of DVTs, on anticoagulant, she recently had venous procedures in both legs, Tuesday, 6 days ago. Denies any chest pain, shortness of breath, nausea or vomiting. Past Medical History Hypertension: Yes Congestive Heart Failure: Yes (2013) Deep Vein Thrombosis: Yes Psychiatric Treatment: Yes (Bipolar Depressed schizo affective) Asthma: Yes Additional medical history: Hypothyroidism, sleep apnea, DVT, Chronic Back pain, Gastritis, IBS. Hyperlipidemia, Ovarian cyst. 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 2 molar pulled. stiched to nasal cavity. Right Rotator cuff repair. Social History Smoking Status: Never Smoker FH FH HTN Medications Home Medications: Home Medications Medication Instructions Recorded Confirmed Last Taken Type RX: Nitroglycerin [Nitrostat] 0.4 mg SL Q5MIN PRN MDD 3 12/20/18 02/01/19 12/26/18 22:00 History RX: Rivaroxaban [Xarelto] 10 mg PO DAILY 12/20/18 02/01/19 12/26/18 09:00 History RX: Spironolactone [Aldactone] 25 mg PO DAILY 12/20/18 02/01/19 12/26/18 09:00 History ALBUTEROL Inhaler (OR & NICU) 2 puff IH Q4-6H PRN 02/01/19 02/01/19 Unknown His tory [Proair] ARIPiprazole [Abilify] 30 mg PO DAILY 02/01/19 02/01/19 Unknown History Carvedilol [Coreg] 6.25 mg PO BID 02/01/19 02/01/19 Unknown History Gabapentin [Neurontin] 100 mg PO TID 02/01/19 02/01/19 Unknown History Levothyroxine [Synthroid] 125 mcg PO DAILY 02/01/19 02/01/19 Unknown History OLANzapine [ZyPREXA] 5 mg PO DAILY 02/01/19 02/01/19 Unknown History Pantoprazole [Protonix] 40 mg PO DAILY 02/01/19 02/01/19 Unknown History Potassium Chloride [K-Dur] 40 meq PO TID 02/01/19 02/01/19 Unknown History RX: AtorvaSTATin [Lipitor] 20 mg PO DAILY 02/01/19 02/01/19 Unknown History Sucralfate [Carafate] 1 gm PO QID 02/01/19 02/01/19 Unknown History Zolpidem [Ambien] 10 mg PO QHS 02/01/19 02/01/19 Unknown History clonazePAM [Klonopin] 1 mg PO TID 02/01/19 02/01/19 Unknown History levoFLOXacin [Levaquin TAB] 500 mg PO DAILY 02/01/19 02/01/19 Unknown History traMADol [Ultram] 50 mg PO BID PRN 02/01/19 02/01/19 Unknown History Review of Systems ROS: Stated complaint: NUMBNESS/NOSE BLEED Other details as noted in HPI Comment: All other systems reviewed and negative ENT: denies: ear pain Respiratory: denies: cough Gastrointestinal: denies: abdominal pain Skin: denies: rash Neurological: Rt facial and Rt arm weakness.Able to walk Psychiatric: anxiety 14 point ros done--otherwise negative Medications and Allergies Allergies Allergy/AdvReac Type Severity Reaction Status Date / Time acetaminophen [From Lortab] Allergy Unknown Verified 12/26/18 18:35 aspirin Allergy Unknown Verified 12/26/18 18:35 divalproex sodium Allergy Rash Verified 12/27/18 01:28 [From Depakote] hydrocodone [From Lortab] Allergy Unknown Verified 12/26/18 18:35 latex Allergy Unknown Verified 12/26/18 18:35 nut - unspecified Allergy Unknown Verified 12/26/18 18:35 oxycodone Allergy Unknown Verified 12/26/18 18:35 Penicillins Allergy Rash Verified 12/26/18 18:35 propoxyphene Allergy Rash Verified 12/26/18 18:35 [From Darvocet-N] Sulfa (Sulfonamide Allergy Rash Verified 12/26/18 18:35 Antibiotics) dairy Allergy Unknown Uncoded 11/15/18 05:54 napsylate Allergy Rash Uncoded 11/04/18 05:11 Home Medications Medication Instructions Recorded Confirmed Last Taken Type Nitroglycerin [Nitrostat] 0.4 mg SL Q5MIN PRN MDD 3 12/20/18 02/01/19 12/26/18 22:00 History Rivaroxaban [Xarelto] 10 mg PO DAILY 12/20/18 02/01/19 12/26/18 09:00 History Spironolactone [Aldactone] 25 mg PO DAILY 12/20/18 02/01/19 12/26/18 09:00 History ALBUTEROL Inhaler (OR & NICU) 2 puff IH Q4-6H PRN 02/01/19 02/01/19 Unknown History [Proair] ARIPiprazole [Abilify] 30 mg PO DAILY 02/01/19 02/01/19 Unknown History AtorvaSTATin [Lipitor] 20 mg PO DAILY 02/01/19 02/01/19 Unknown History Carvedilol [Coreg] 6.25 mg PO BID 02/01/19 02/01/19 Unknown History Gabapentin [Neurontin] 100 mg PO TID 02/01/19 02/01/19 Unknown History Levothyroxine [Synthroid] 125 mcg PO DAILY 02/01/19 02/01/19 Unknown History OLANzapine [ZyPREXA] 5 mg PO DAILY 02/01/19 02/01/19 Unknown History Pantoprazole [Protonix] 40 mg PO DAILY 02/01/19 02/01/19 Unknown History Potassium Chloride [K-Dur] 40 meq PO TID 02/01/19 02/01/19 Unknown History Sucralfate [Carafate] 1 gm PO QID 02/01/19 02/01/19 Unknown History Zolpidem [Ambien] 10 mg PO QHS 02/01/19 02/01/19 Unknown History clonazePAM [Klonopin] 1 mg PO TID 02/01/19 02/01/19 Unknown History levoFLOXacin [Levaquin TAB] 500 mg PO DAILY 02/01/19 02/01/19 Unknown History traMADol [Ultram] 50 mg PO BID PRN 02/01/19 02/01/19 Unknown History Active Meds: Active Medications Atorvastatin Calcium (Lipitor) 40 mg PO QHS [facility] Last Admin: 02/01/19 22:02 Dose: 40 mg Documented by: Famotidine (Pepcid) 20 mg PO BID [facility] Last Admin: 02/01/19 22:02 Dose: 20 mg Documented by: Hydromorphone HCl (Dilaudid) 0.5 mg IV Q3H PRN PRN Reason: Pain , Severe (7-10) Last Admin: 02/01/19 22:01 Dose: 0.5 mg Documented by: Sodium Chloride (Nacl 0.9% 1000 Ml) 1,000 mls @ 42 mls/hr IV DIRECT [facility] Last Admin: 02/01/19 22:03 Dose: 42 mls/hr Documented by: Metoclopramide HCl (Reglan) 10 mg IV Q6H PRN PRN Reason: Nausea And Vomiting Ondansetron HCl (Zofran) 4 mg IV Q3H PRN PRN Reason: Nausea And Vomiting Last Admin: 02/01/19 17:05 Dose: 4 mg Documented by: Ondansetron HCl (Zofran) 4 mg IV Q8H PRN PRN Reason: Nausea And Vomiting Sodium Chloride (Sodium Chloride Flush Syringe 10 Ml) 10 ml IV BID [facility] Last Admin: 02/01/19 22:03 Dose: 10 ml Documented by: Sodium Chloride (Sodium Chloride Flush Syringe 10 Ml) 10 ml IV PRN PRN PRN Reason: LINE FLUSH Sodium Chloride (Sodium Chloride Flush Syringe 10 Ml) 10 ml IV PRN PRN PRN Reason: LINE FLUSH Tramadol HCl (Ultram) 25 mg PO Q4H PRN PRN Reason: Pain, Moderate (4-6) Exam - Constitutional Vitals: Temp Pulse Resp BP Pulse Ox 97.3 F L 48 L 20 101/48 97 02/01/19 23:32 02/01/19 23:32 02/01/19 23:32 02/01/19 23:32 02/01/19 23:32 General appearance: Present: no acute distress, well-nourished - EENT Eyes: Present: PERRL ENT: hearing intact, clear oral mucosa - Neck Neck: Present: supple, normal ROM - Respiratory Respiratory effort: normal Respiratory: bilateral: CTA - Cardiovascular Heart rate: 78 Rhythm: regular Heart Sounds: Present: S1 & S2. Absent: rub, click - Extremities Extremities: no ischemia, pulses intact, pulses symmetrical, No edema Peripheral Pulses: within normal limits - Abdominal General gastrointestinal: Present: soft, non-tender, non-distended, normal bowel sounds Female genitourinary: Present: normal - Integumentary Integumentary: Present: clear, warm, dry - Musculoskeletal Musculoskeletal: right sided weakness (RUE 4/5 power) - Psychiatric Psychiatric: appropriate mood/affect, intact judgment & insight - Neurologic Neurologic: focal deficits (Rt facialpalsy and Rt UE weakness), moves all extremities Results - Labs CBC & Chem 7: 02/01/19 12:25 02/01/19 10:24 Labs: Laboratory Last Values WBC 7.5 K/mm3 (4.5-11.0) 02/01/19 12:25 RBC 4.50 M/mm3 (3.65-5.03) 02/01/19 12:25 Hgb 12.1 gm/dl (10.1-14.3) 02/01/19 12:25 Hct 37.5 % (30.3-42.9) 02/01/19 12:25 MCV 83 fl (79-97) 02/01/19 12:25 MCH 27 pg (28-32) L 02/01/19 12:25 MCHC 32 % (30-34) 02/01/19 12:25 RDW 15.3 % (13.2-15.2) H 02/01/19 12:25 Plt Count 225 K/mm3 (140-440) 02/01/19 12:25 Lymph % (Auto) 24.8 % (13.4-35.0) 02/01/19 12:25 [place] % (Auto) 5.9 % (0.0-7.3) 02/01/19 12:25 Eos % (Auto) 1.6 % (0.0-4.3) 02/01/19 12:25 Baso % (Auto) 0.5 % (0.0-1.8) 02/01/19 12:25 Lymph # 1.9 K/mm3 (1.2-5.4) 02/01/19 12:25 [place] # 0.4 K/mm3 (0.0-0.8) 02/01/19 12:25 Eos # 0.1 K/mm3 (0.0-0.4) 02/01/19 12:25 Baso # 0.0 K/mm3 (0.0-0.1) 02/01/19 12:25 Seg Neutrophils % 67.2 % (40.0-70.0) 02/01/19 12:25 Seg Neutrophils # 5.0 K/mm3 (1.8-7.7) 02/01/19 12:25 PT 17.6 Sec. (12.2-14.9) H 02/01/19 12:25 INR 1.48 (0.87-1.13) H 02/01/19 12:25 APTT 48.6 Sec. (24.2-36.6) H 02/01/19 12:25 16.1 Sec. (15.1-19.6) 02/01/19 12:25 Sodium 141 mmol/L (137-145) 02/01/19 10:24 Potassium 3.9 mmol/L (3.6-5.0) 02/01/19 10:24 Chloride 102.1 mmol/L (98-107) 02/01/19 10:24 Carbon Dioxide 27 mmol/L (22-30) 02/01/19 10:24 16 mmol/L 02/01/19 10:24 BUN 12 mg/dL (7-17) 02/01/19 10:24 0.9 mg/dL (0.7-1.2) 02/01/19 10:24 Estimated GFR > 60 ml/min 02/01/19 10:24 13 % 02/01/19 10:24 Glucose 107 mg/dL (65-100) H 02/01/19 10:24 POC Glucose 104 (70-105) 02/01/19 12:15 5.7 % (4-6) 02/01/19 22:58 Calcium 8.8 mg/dL (8.4-10.2) 02/01/19 10:24 0.30 mg/dL (0.1-1.2) 02/01/19 10:24 AST 17 units/L (5-40) 02/01/19 10:24 ALT 15 units/L (7-56) 02/01/19 10:24 93 units/L (35-129) 02/01/19 10:24 106 units/L (30-135) 02/01/19 12:25 CK-MB (CK-2) 1.4 ng/mL (0.0-4.0) 02/01/19 12:25 CK-MB (CK-2) Rel Index 1.3 (0-4) 02/01/19 12:25 < 0.010 ng/mL (0.00-0.029) 02/01/19 12:25 7.0 g/dL (6.3-8.2) 02/01/19 10:24 3.8 g/dL (3.9-5) L 02/01/19 10:24 1.2 % 02/01/19 10:24 Yellow (Yellow) 02/01/19 19:26 Clear (Clear) 02/01/19 19:26 6.0 (5.0-7.0) 02/01/19 19:26 Ur Specific [place] 1.009 (1.003-1.030) 02/01/19 19:26 <15 mg/dl mg/dL (Negative) 02/01/19 19:26 Neg mg/dL (Negative) 02/01/19 19:26 Neg mg/dL (Negative) 02/01/19 19:26 Neg (Negative) 02/01/19 19:26 Neg (Negative) 02/01/19 19:26 Ur Reducing Substances Not Reportable 02/01/19 19:26 Neg (Negative) 02/01/19 19:26 Not Reportable 02/01/19 19:26 < 2.0 mg/dL (<2.0) 02/01/19 19:26 Ur Leukocyte Esterase Tr (Negative) 02/01/19 19:26 3.0 /HPF (0.0-6.0) 02/01/19 19:26 1.0 /HPF (0.0-6.0) 02/01/19 19:26 U Epithel Cells (Auto) 1.0 /HPF (0-13.0) 02/01/19 19:26 1+ /HPF (Negative) 02/01/19 19:26 Urine HCG, Qual Negative (Negative) 02/01/19 19:26 - Imaging and Cardiology EKG: report reviewed CT Scan - head: report reviewed (NAF) Assessment and Plan Advance Directives: Yes (Full code) VTE prophylaxis?: Chemical Plan of care discussed with patient/family: Yes - Patient Problems (1) Acute CVA (cerebrovascular accident) Current Visit: Yes Status: Acute Plan to address problem: Patient has Rt facial weakness and RUE weakness Acute CVA w//u Neuro consult requsted Check MRI/MRA Echo and CDS PT/OT (2) HTN (hypertension) Current Visit: Yes Status: Chronic Qualifiers: Hypertension type: essential hypertension Qualified Code(s): I10 - Essential (primary) hypertension Plan to address problem: Cont antihyupertensives (3) GERD (gastroesophageal reflux disease) Current Visit: Yes Status: Chronic Qualifiers: Esophagitis presence: without esophagitis Qualified Code(s): K21.9 - Gastro-esophageal reflux disease without esophagitis Plan to address problem: Cont PPis (4) Depression Current Visit: Yes Status: Chronic Qualifiers: Depression Type: unspecified Qualified Code(s): F32.9 - Major depressive disorder, single episode, unspecified Plan to address problem: COnt antidepressants (5) NASRA (generalized anxiety disorder) Current Visit: Yes Status: Chronic Plan to address problem: Cont anxiolytics (6) Asthma Current Visit: Yes Status: Inactive Qualifiers: Asthma persistence: unspecified Plan to address problem: Bronchodilators prn (7) Schizoaffective disorder Current Visit: No Status: Chronic Qualifiers: Schizoaffective disorder type: unspecified Qualified Code(s): F25.9 - Schizoaffective disorder, unspecified Plan to address problem: Cont Zyprexa (8) Hypothyroidism (acquired) Current Visit: Yes Status: Chronic Plan to address problem: Cont synthyroid Check TSH (9) HLD (hyperlipidemia) Current Visit: Yes Status: Chronic Qualifiers: Hyperlipidemia type: unspecified Qualified Code(s): E78.5 - Hyperlipidemia, unspecified Plan to address problem: Cont statins (10) DVT prophylaxis Current Visit: Yes Status: Acute Plan to address problem: On Xarelto for recurrent DVT'sand GI prophylaxis
[2019-02-02] MEDS ORDERED: PROAIR IH PRN (06:35)
[2019-02-02] MEDS ORDERED: ULTRAM PO PRN (06:35)
[2019-02-02] MEDS ORDERED: PROVENTIL IH PRN (06:51)
[2019-02-02] MEDS ORDERED: SYNTHROID PO SCH (07:00)
[2019-02-02] MEDS ORDERED: NON-FORMULARY (Clonazepam [Klonopin] 1 MG) PO SCH (08:00)
[2019-02-02 09:11] LABS: Alanine Aminotransferase 13 units/L (7-56); Albumin 3.5 g/dL (3.9-5); BUN/Creatinine Ratio 16; Blood Urea Nitrogen 11 mg/dL (7-17); Calcium 8.6 mg/dL (8.4-10.2); Chol/HDL Ratio 3.27 %; HDL Cholesterol 37 mg/dL (40-59); Hemolysis Index 16; LDL Cholesterol,Direct 60 mg/dL (50-130)
[2019-02-02] MEDS: NEURONTIN PO SCH ×2 (09:19→14:45)
[2019-02-02] MEDS ORDERED: PROTONIX PO SCH (10:00)
[2019-02-02] MEDS ORDERED: XARELTO PO SCH (10:00)
[2019-02-02] MEDS ORDERED: ARIPIPRAZOLE 30 MG PO SCH (10:00)
[2019-02-02] MEDS ORDERED: COREG PO SCH (10:00)
[2019-02-02] MEDS ORDERED: ABILIFY PO SCH (10:00)
--- NOTE | 2019-02-02 12:17 | Magnetic Resonance Report ---
MRI OF THE BRAIN WITHOUT CONTRAST: HISTORY: Stroke PROCEDURE: Multiplanar, multisequence MR imaging of the brain without IV contrast was performed. FINDINGS: Compared to the CT head dated 02/01/19. The brain parenchyma signal intensity and its rubio white interface are within normal limits on all sequences. No evidence for acute ischemia, hemorrhage or mass. No chronic infarct or extra-axial fluid collection. The midline structures are central. The basal cisterns are patent. Normal ventricular size. The orbital cavities and sella turcica demonstrate no abnormality. The visualized paranasal sinuses and mastoid air cells are well aerated. IMPRESSION: Unremarkable non-enhanced MRI of the brain.
--- NOTE | 2019-02-02 12:18 | Magnetic Resonance Report ---
MRA HEAD WITHOUT CONTRAST HISTORY: Stroke. [id number] imaging with MIP reformations of [place] is submitted. The left A1 segment is hypoplastic. There is filling of the left A2 segment via a patent anterior communicating artery. The anterior and posterior circulation arteries appear widely patent and free of hemodynamically significant stenosis, aneurysm or dissection. IMPRESSION: Normal variant MRA head. No large vessel occlusion, stenosis or aneurysm.
[2019-02-02] MEDS: SODIUM CHLORIDE FLUSH SYRINGE 10 ML IV SCH (13:40)
[2019-02-02] MEDS: DILAUDID IV PRN (14:45)
--- NOTE | 2019-02-02 15:42 | Progress Note ---
Hospitalist Physical - Constitutional Vitals: Temp Pulse Resp BP Pulse Ox 98.1 F 75 16 108/53 100 02/02/19 12:52 02/02/19 13:43 02/02/19 12:52 02/02/19 13:43 02/02/19 14:15 General appearance: Present: no acute distress, well-nourished Results - Labs CBC & Chem 7: 02/01/19 12:25 02/02/19 06:56 Labs: Laboratory Last Values WBC 7.5 K/mm3 (4.5-11.0) 02/01/19 12:25 RBC 4.50 M/mm3 (3.65-5.03) 02/01/19 12:25 Hgb 12.1 gm/dl (10.1-14.3) 02/01/19 12:25 Hct 37.5 % (30.3-42.9) 02/01/19 12:25 MCV 83 fl (79-97) 02/01/19 12:25 MCH 27 pg (28-32) L 02/01/19 12:25 MCHC 32 % (30-34) 02/01/19 12:25 RDW 15.3 % (13.2-15.2) H 02/01/19 12:25 Plt Count 225 K/mm3 (140-440) 02/01/19 12:25 Lymph % (Auto) 24.8 % (13.4-35.0) 02/01/19 12:25 [place] % (Auto) 5.9 % (0.0-7.3) 02/01/19 12:25 Eos % (Auto) 1.6 % (0.0-4.3) 02/01/19 12:25 Baso % (Auto) 0.5 % (0.0-1.8) 02/01/19 12:25 Lymph # 1.9 K/mm3 (1.2-5.4) 02/01/19 12:25 [place] # 0.4 K/mm3 (0.0-0.8) 02/01/19 12:25 Eos # 0.1 K/mm3 (0.0-0.4) 02/01/19 12:25 Baso # 0.0 K/mm3 (0.0-0.1) 02/01/19 12:25 Seg Neutrophils % 67.2 % (40.0-70.0) 02/01/19 12:25 Seg Neutrophils # 5.0 K/mm3 (1.8-7.7) 02/01/19 12:25 PT 17.6 Sec. (12.2-14.9) H 02/01/19 12:25 INR 1.48 (0.87-1.13) H 02/01/19 12:25 APTT 48.6 Sec. (24.2-36.6) H 02/01/19 12:25 16.1 Sec. (15.1-19.6) 02/01/19 12:25 Sodium 141 mmol/L (137-145) 02/02/19 06:56 Potassium 3.7 mmol/L (3.6-5.0) 02/02/19 06:56 Chloride 102.3 mmol/L (98-107) 02/02/19 06:56 Carbon Dioxide 26 mmol/L (22-30) 02/02/19 06:56 16 mmol/L 02/02/19 06:56 BUN 11 mg/dL (7-17) 02/02/19 06:56 0.7 mg/dL (0.7-1.2) 02/02/19 06:56 Estimated GFR > 60 ml/min 02/02/19 06:56 16 % 02/02/19 06:56 Glucose 89 mg/dL (65-100) 02/02/19 06:56 POC Glucose 104 (70-105) 02/01/19 12:15 5.7 % (4-6) 02/01/19 22:58 Calcium 8.6 mg/dL (8.4-10.2) 02/02/19 06:56 0.40 mg/dL (0.1-1.2) 02/02/19 06:56 AST 16 units/L (5-40) 02/02/19 06:56 ALT 13 units/L (7-56) 02/02/19 06:56 90 units/L (35-129) 02/02/19 06:56 106 units/L (30-135) 02/01/19 12:25 CK-MB (CK-2) 1.4 ng/mL (0.0-4.0) 02/01/19 12:25 CK-MB (CK-2) Rel Index 1.3 (0-4) 02/01/19 12:25 < 0.010 ng/mL (0.00-0.029) 02/01/19 12:25 6.4 g/dL (6.3-8.2) 02/02/19 06:56 3.5 g/dL (3.9-5) L 02/02/19 06:56 1.2 % 02/02/19 06:56 Triglycerides 147 mg/dL (2-149) 02/02/19 06:56 Cholesterol 121 mg/dL (50-199) 02/02/19 06:56 60 mg/dL (50-130) 02/02/19 06:56 37 mg/dL (40-59) L 02/02/19 06:56 3.27 % 02/02/19 06:56 Yellow (Yellow) 02/01/19 19:26 Clear (Clear) 02/01/19 19:26 6.0 (5.0-7.0) 02/01/19 19:26 Ur Specific [place] 1.009 (1.003-1.030) 02/01/19 19:26 <15 mg/dl mg/dL (Negative) 02/01/19 19:26 Neg mg/dL (Negative) 02/01/19 19:26 Neg mg/dL (Negative) 02/01/19 19:26 Neg (Negative) 02/01/19 19:26 Neg (Negative) 02/01/19 19:26 Ur Reducing Substances Not Reportable 02/01/19 19:26 Neg (Negative) 02/01/19 19:26 Not Reportable 02/01/19 19:26 < 2.0 mg/dL (<2.0) 02/01/19 19:26 Ur Leukocyte Esterase Tr (Negative) 02/01/19 19:26 3.0 /HPF (0.0-6.0) 02/01/19 19:26 1.0 /HPF (0.0-6.0) 02/01/19 19:26 U Epithel Cells (Auto) 1.0 /HPF (0-13.0) 02/01/19 19:26 1+ /HPF (Negative) 02/01/19 19:26 Urine HCG, Qual Negative (Negative) 02/01/19 19:26 Active Medications - Current Medications Current Medications: Generic Name Dose Route Start Last Admin Trade Name Freq PRN Reason Stop Dose Admin Albuterol 2.5 mg 02/02/19 06:51 Proventil IH Q4HRT PRN Shortness Of Breath Aripiprazole 30 mg 02/02/19 10:00 02/02/19 13:39 Abilify PO 30 mg DAILY [facility] Administration Atorvastatin Calcium 20 mg 02/02/19 22:00 Lipitor PO DAILY@2200 [facility]IN Carvedilol 6.25 mg 02/02/19 10:00 02/02/19 13:43 Coreg PO 6.25 mg BID [facility] Administration Clonazepam 1 mg 02/02/19 08:00 02/02/19 14:44 Klonopin PO 1 mg TID [facility] Administration Gabapentin 100 mg 02/02/19 08:00 02/02/19 14:45 Neurontin PO 100 mg TID [facility] Administration Hydromorphone HCl 0.5 mg 02/01/19 21:35 02/02/19 14:45 Dilaudid IV 0.5 mg Q3H PRN Administration Pain , Severe (7-10) Sodium Chloride 1,000 mls @ 42 mls/hr 02/01/19 22:00 02/01/19 22:03 Nacl 0.9% 1000 Ml IV 42 mls/hr DIRECT [facility] Administration Levothyroxine Sodium 125 mcg 02/02/19 07:00 02/02/19 09:19 Synthroid PO 125 mcg DAILY@0600 [place] Administration Metoclopramide HCl 10 mg 02/01/19 21:35 Reglan IV Q6H PRN Nausea And Vomiting Olanzapine 5 mg 02/02/19 10:00 02/02/19 13:40 Zyprexa PO 5 mg DAILY [facility] Administration Ondansetron HCl 4 mg 02/01/19 21:35 Zofran IV Q8H PRN Nausea And Vomiting Pantoprazole Sodium 40 mg 02/02/19 10:00 02/02/19 09:20 Protonix PO 40 mg DAILY [place] Administration Rivaroxaban 10 mg 02/02/19 10:00 02/02/19 13:39 Xarelto PO 10 mg DAILY [place] Administration Protocol Sodium Chloride 10 ml 02/01/19 22:00 02/02/19 13:40 Sodium Chloride Flush Syringe 10 Ml IV 10 ml BID [facility] Administration Sodium Chloride 10 ml 02/01/19 21:35 Sodium Chloride Flush Syringe 10 Ml IV PRN PRN LINE FLUSH Tramadol HCl 50 mg 02/02/19 06:35 Ultram PO BID PRN Pain Zolpidem Tartrate 10 mg 02/02/19 22:00 Ambien PO QHS [facility]
--- NOTE | 2019-02-02 17:38 | Discharge Summary ---
Providers - Providers Date of Admission: 02/01/19 15:23 Date of discharge: 02/02/19 Attending physician: LUIS MCKINNEY 02/01/19 21:35 Consult to Physician [CONS] Routine Comment: Consulting Provider: REGINALD VELAZCO Physician Instructions: Reason For Exam: CVA 02/01/19 21:38 Occupational Therapy Evaluate and Treat [CONS] Routine Comment: Reason For Exam: Neuro deficits Physical Therapy Evaluation and Treat [CONS] Routine Comment: Reason For Exam: Neuro deficits Primary care physician: SUSAN RIOS Hospitalization Condition: Fair Hospital course: Patient is 48 y/o year-old female presents to ED for Right facial weakness and right arm weakness, for past 2 days. Patient thought her symptoms would be better, but continued to worsen. She was seen and evaluated in ED. CT head was unremarkable. She was admitted to rule out stroke. MRI Brain was negative for stroke. She was evaluated by Neurologist and diagnosed with Stubbs's syndrome. Supportive care. Patient does not have a new stroke. 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 Status: Acute (6) GERD (gastroesophageal reflux disease) Status: Chronic Qualifiers: Esophagitis presence: without esophagitis Qualified Code(s): K21.9 - Gastro-esophageal reflux disease without esophagitis (7) HLD (hyperlipidemia) Status: Chronic Qualifiers: Hyperlipidemia type: unspecified Qualified Code(s): E78.5 - Hyperlipidemia, unspecified (8) HTN (hypertension) Status: Chronic Qualifiers: Hypertension type: essential hypertension Qualified Code(s): I10 - Essential (primary) hypertension Core Measure Documentation - Palliative Care Palliative Care/ Comfort Measures: Not Applicable - Core Measures Any of the following diagnoses?: none Exam - Constitutional Vitals: Temp Pulse Resp BP Pulse Ox 98.1 F 75 16 108/53 100 02/02/19 12:52 02/02/19 13:43 02/02/19 12:52 02/02/19 13:43 02/02/19 14:15 Plan Activity: advance as tolerated Diet: low fat, low cholesterol, low salt Special Instructions: physical therapy Durable Medical Equipment Needed Upon Discharge: Walker-Rolling Additional Instructions: 1.Follow up with PCP in 1 week. 2.Follow up with Neurology in 1 week. 3.Continue home health PT Follow up with: SUSAN RIOS MD [Primary Care Provider] - 3-5 Days
--- NOTE | 2019-02-02 17:57 | Consultation ---
History of Present Illness Consult date: 02/02/19 Chief complaint: hand numb, pain History of present illness: This is a 48 YO F who presented to the ED with right hand numbness and pain in her legs post procedure. PT thought her right facial weakness might be worse but she has had Stubbs's Palsy. Symptoms have improved. Past History Past Medical History: PVD, other (bipolar/schizoaff, Stubbs's palsy) Past Surgical History: Other (vein surgery) Family history: hypertension Medications and Allergies Allergies Allergy/AdvReac Type Severity Reaction Status Date / Time acetaminophen [From Lortab] Allergy Unknown Verified 12/26/18 18:35 aspirin Allergy Unknown Verified 12/26/18 18:35 divalproex sodium Allergy Rash Verified 12/27/18 01:28 [From Depakote] hydrocodone [From Lortab] Allergy Unknown Verified 12/26/18 18:35 latex Allergy Unknown Verified 12/26/18 18:35 nut - unspecified Allergy Unknown Verified 12/26/18 18:35 oxycodone Allergy Unknown Verified 12/26/18 18:35 Penicillins Allergy Rash Verified 12/26/18 18:35 propoxyphene Allergy Rash Verified 12/26/18 18:35 [From Darvocet-N] Sulfa (Sulfonamide Allergy Rash Verified 12/26/18 18:35 Antibiotics) dairy Allergy Unknown Uncoded 11/15/18 05:54 napsylate Allergy Rash Uncoded 11/04/18 05:11 Home Medications Medication Instructions Recorded Confirmed Last Taken Type Nitroglycerin [Nitrostat] 0.4 mg SL Q5MIN PRN MDD 3 12/20/18 02/01/19 12/26/18 22:00 History Rivaroxaban [Xarelto] 10 mg PO DAILY 12/20/18 02/01/19 12/26/18 09:00 History Spironolactone [Aldactone] 25 mg PO DAILY 12/20/18 02/01/19 12/26/18 09:00 History ALBUTEROL Inhaler (OR & NICU) 2 puff IH Q4-6H PRN 02/01/19 02/01/19 Unknown History [ProAir HFA Inhaler] ARIPiprazole [Abilify] 30 mg PO DAILY 02/01/19 02/01/19 Unknown History AtorvaSTATin [Lipitor] 20 mg PO DAILY 02/01/19 02/01/19 Unknown History Carvedilol [Coreg] 6.25 mg PO BID 02/01/19 02/01/19 Unknown History Gabapentin [Neurontin] 100 mg PO TID 02/01/19 02/01/19 Unknown History Levothyroxine [Synthroid] 125 mcg PO DAILY 02/01/19 02/01/19 Unknown History OLANzapine [ZyPREXA] 5 mg PO DAILY 02/01/19 02/01/19 Unknown History Pantoprazole [Protonix TAB] 40 mg PO DAILY 02/01/19 02/01/19 Unknown History Potassium Chloride [K-Dur] 40 meq PO TID 02/01/19 02/01/19 Unknown History Sucralfate [Carafate] 1 gm PO QID 02/01/19 02/01/19 Unknown History Zolpidem [Ambien] 10 mg PO QHS 02/01/19 02/01/19 Unknown History clonazePAM [Klonopin] 1 mg PO TID 02/01/19 02/01/19 Unknown History levoFLOXacin [Levaquin TAB] 500 mg PO DAILY 02/01/19 02/01/19 Unknown History traMADol [Ultram 50 MG tab] 50 mg PO BID PRN 02/01/19 02/01/19 Unknown History Active Meds: Active Medications Albuterol (Proventil) 2.5 mg IH Q4HRT PRN PRN Reason: Shortness Of Breath Aripiprazole (Abilify) [address] [facility] Last Admin: 02/02/19 13:39 Dose: 30 mg Documented by: Atorvastatin Calcium (Lipitor) 20 mg PO DAILY@2200 [facility] Carvedilol (Coreg) 6.[address] [facility] Last Admin: 02/02/19 13:43 Dose: 6.25 mg Documented by: Clonazepam (Klonopin) [address] [facility] Last Admin: 02/02/19 14:44 Dose: 1 mg Documented by: Gabapentin (Neurontin) [address] [facility] Last Admin: 02/02/19 14:45 Dose: 100 mg Documented by: Hydromorphone HCl (Dilaudid) 0.5 mg IV Q3H PRN PRN Reason: Pain , Severe (7-10) Last Admin: 02/02/19 14:45 Dose: 0.5 mg Documented by: Sodium Chloride (Nacl 0.9% 1000 Ml) 1,000 mls @ 42 mls/hr IV DIRECT [facility] Last Admin: 02/01/19 22:03 Dose: 42 mls/hr Documented by: Levothyroxine Sodium (Synthroid) 125 mcg PO DAILY@0600 [facility] Last Admin: 02/02/19 09:19 Dose: 125 mcg Documented by: Metoclopramide HCl (Reglan) 10 mg IV Q6H PRN PRN Reason: Nausea And Vomiting Olanzapine (Zyprexa) [address] [facility] Last Admin: 02/02/19 13:40 Dose: 5 mg Documented by: Ondansetron HCl (Zofran) 4 mg IV Q8H PRN PRN Reason: Nausea And Vomiting Pantoprazole Sodium (Protonix) [address] [facility] Last Admin: 02/02/19 09:20 Dose: 40 mg Documented by: Rivaroxaban (Xarelto) [address] [facility]; Protocol Last Admin: 02/02/19 13:39 Dose: 10 mg Documented by: Sodium Chloride (Sodium Chloride Flush Syringe 10 Ml) [address] [facility] Last Admin: 02/02/19 13:40 Dose: 10 ml Documented by: Sodium Chloride (Sodium Chloride Flush Syringe 10 Ml) 10 ml IV PRN PRN PRN Reason: LINE FLUSH Tramadol HCl (Ultram) 50 mg PO BID PRN PRN Reason: Pain Zolpidem Tartrate (Ambien) [address] [facility] Review of Systems Neurological: numbness, other (facial droop) Physical Examination - Vital Signs Vital Signs: Vital Signs Pulse Ox 100 02/01/19 11:58 - Constitutional General appearance: comfortable - EENT EENT: Present: mucous membranes moist - Respiratory Respiratory: Present: lungs clear - Cardiovascular Cardiovascular: Present: regular rate Extremities: Present: no peripheral edema bilatateraly - Gastrointestinal Gastrointestinal: Present: normoactive bowel sounds - Neurologic Cranial nerve examination: PERRL, EOMI, other (peripheral 7 distribution facial weakness on the right) Speech examination: intact Sensorimotor examination: intact Detailed motor examination: other (moves all extremities against gravity) Reflexes: 1+: ankle, bicep, knee, tricep - Psychiatric Psychiatric: Present: mood/affect appropriate Results - Laboratory Findings CBC and BMP: 02/01/19 12:25 02/02/19 06:56 Abnormal Lab Findings: Abnormal Labs 02/01/19 02/01/19 02/01/19 10:24 10:24 12:25 MCH 27 L 27 L RDW 15.5 H 15.3 H PT INR APTT Glucose 107 H Albumin 3.8 L HDL Cholesterol 02/01/19 02/02/19 12:25 06:56 MCH RDW PT 17.6 H INR 1.48 H APTT 48.6 H Glucose Albumin 3.5 L HDL Cholesterol 37 L - Diagnostic Findings Additional findings: MRI/A Brain ok Assessment and Plan This is a 48 YO F with Stubbs's palsy and pain on the right. MRI Brain does not show acute ischemia. REcommend: Continue Xarelto as pt was on before for DVT COntinue care for all medical issues as you are doing No further recommendations
[2019-02-02 18:12] VITALS: BP 121/55
--- NOTE | 2019-02-02 20:23 | Vascular Lab Report ---
PROCEDURE: VL CAROTID DUPLEX BILAT TECHNIQUE: Duplex Doppler ultrasound of the common, internal and external carotid arteries and the v ertebral arteries was performed bilaterally. Hu[place] scale imaging, velocity spectral waveform analysis, and color flow Doppler were employed. HISTORY: stroke COMPARISONS: None . Note: Measurement of carotid stenosis is based on flow velocity values that correlate with the [place] Symptomatic Carotid Endarterectomy Trial (NASCET) based stenosis criteria using the internal carotid artery diameter as the denominator for stenosis calculation. FINDINGS: RIGHT carotid artery: Velocities: ICA PSV: 75 cm/sec ICA End diastolic: 23 cm/sec CCA PSV: 83 cm/sec IC/CC ratio: 0.9 Plaque/: No obvious clot formation is identified. RIGHT vertebral artery: Antegrade systolic and diastolic flow LEFT carotid artery: Velocities: ICA PSV: 74 cm/sec ICA End diastolic: 31 cm/sec CCA PSV: 92 cm/sec IC/CC ratio: 0.8 Plaque/: No obvious plaque formation is identified. LEFT vertebral artery: Antegrade systolic and diastolic flow IMPRESSION: 1. RIGHT carotid: No evidence of stenosis. 2. LEFT carotid: No evidence of stenosis. 3. Vertebral arteries: Bilaterally antegrade. . This document is electronically signed by William Keenan MD., February 02 2019 08:20:17 PM ET
[2019-02-02] MEDS ORDERED: AMBIEN PO SCH (22:00)
== END 2019-02-02 20:00 | disposition home health service (06) | DRG 74 ==
LOC: ED 09:37 → 3A 15:23
PROVIDERS: ADMIT Internal Medicine; ATTEND Internal Medicine
DX: G51.0 Bell's palsy (principal); G89.18 Other acute postprocedural pain; I11.0 Hypertensive heart disease with heart failure; I50.9 Heart failure, unspecified; E03.9 Hypothyroidism, unspecified; G89.29 Other chronic pain; M54.9 Dorsalgia, unspecified; K58.9 Irritable bowel syndrome, unspecified; E78.5 Hyperlipidemia, unspecified; K21.9 Gastro-esophageal reflux disease without esophagitis; F41.1 Generalized anxiety disorder; J45.909 Unspecified asthma, uncomplicated; F25.9 Schizoaffective disorder, unspecified; I73.9 Peripheral vascular disease, unspecified; Z86.718 Personal history of other venous thrombosis and embolism; Z90.49 Acquired absence of other specified parts of digestive tract; Z88.0 Allergy status to penicillin; Z88.2 Allergy status to sulfonamides; Z88.8 Allergy status to other drugs, medicaments and biological substances; Z79.01 Long term (current) use of anticoagulants
CPT/HCPCS: 36415; 70450; 70544; 70551; 80053; 80061; 81001; 81025; 82550; 82553; 82962; 83036; 84484; 85025; 85027; 85610; 85670; 85730; 90732; 93005; 93010; 93306; 93880; G0378; A9270-GY; J1170; J2405; J7030

== ENCOUNTER 2019-02-11 14:01 | Inpatient (IN) | payer MEDICARE ==
--- NOTE | 2019-02-11 14:05 | Event Note ---
ED Screening Note Date of service: 02/11/19 Time: 14:04 ED Screening Note: 48 y/o female comes in for 15 mins of neurological deficits. Slurred speach un even sound right leg heaviness. This initial assessment/diagnostic orders/clinical plan/treatment(s) is/are subject to change based on patients health status, clinical progression and re- assessment by fellow clinical providers in the ED. Further treatment and workup at subsequent clinical providers discretion. Patient/guardian urged not to elope from the ED as their condition may be serious if not clinically assessed and managed. Initial orders include:
[2019-02-11 14:29] LABS: Basophils # (Auto) 0.1 K/mm3 (0.0-0.1); Basophils % (Auto) 0.7 % (0.0-1.8); Eosinophils # (Auto) 0.2 K/mm3 (0.0-0.4); Hematocrit 37.3 % (30.3-42.9); Hemoglobin 12.7 gm/dl (10.1-14.3); Lymphocytes # (Auto) 2.3 K/mm3 (1.2-5.4); Lymphocytes % (Auto) 26.1 % (13.4-35.0); Mean Corpuscular HGB Conc 34 % (30-34); Mean Corpuscular Volume 83 fl (79-97); Monocytes # (Auto) 0.6 K/mm3 (0.0-0.8); Monocytes % (Auto) 6.4 % (0.0-7.3); Platelet Count 287 K/mm3 (140-440); Red Blood Count 4.52 M/mm3 (3.65-5.03)
--- NOTE | 2019-02-11 14:31 | Cat Scan Report ---
PROCEDURE: CT HEAD/BRAIN WO CON TECHNIQUE: CT of the head was performed without intravenous contrast. HISTORY: neuro deficits <6hrs or sx present upon awakening SLURRED SPEECH RT LEG WEAK COMPARISONS: None FINDINGS: The ventricles are normal in position and shape. The ventricles are nondilated. No intracranial hemorrhage, mass, mass effect or evidence of acute ischemic infarct. The basilar cisterns are patent. The paranasal sinuses are clear. The mastoid air cells are clear. The orbits are intact. The calvarium is intact. No extracranial soft tissue swelling. IMPRESSION: No acute intracranial abnormality. The negative results were discussed with Dr. Blank by the [facility] staff at 11:28 AM PST on 02/11/2019. This document is electronically signed by Melissa Clemens., February 11 2019 02:29:02 PM ET
[2019-02-11 14:38] LABS: INR 1.54 (0.87-1.13)
[2019-02-11 14:40] LABS: Partial Thromboplastin Time 40.4 Sec. (24.2-36.6)
[2019-02-11 14:43] LABS: BUN/Creatinine Ratio 12; Blood Urea Nitrogen 11 mg/dL (7-17); Hemolysis Index 12
--- NOTE | 2019-02-11 15:29 | Emergency Department Report ---
ED Neuro Deficit HPI - General Chief Complaint: Neuro Symptoms/Deficit Stated Complaint: COLD/RT LEG NUMB/SOME SLURR Time Seen by Provider: 02/11/19 14:24 Source: patient Mode of arrival: Ambulatory Limitations: No Limitations - History of Present Illness Initial Comments: [facility] Impression: Not a tpa candidate she is on eliqius Comments: Time: 1414 14:20 Recommendations: Start antiplatelet if no obvious contraindication Stroke protocol admission/ orderset suggested with placement on stroke floor tele monitoring Bedside swallow evaluation HOB less than 30 degrees IV Fluid hydration with NS Euglycemia avoid hyperthermia, PRN acetaminophen dvt ppx Consider inpatient neurology consultation Discussed with ED MD Please call with questions CC History of Present Illness Last known well was 20 minutes prior on xarelto with right sided weakness. The last time she took her xarelto was this mornring. Diagnostic: CT head Exam: Patient is in no apparent distress. Patient appears as stated age. No obvious acute respiratory or cardiac distress. Patient is well groomed and well- nourished. NIHSS score: 1A: Level of Consciousness - Requires repeated stimulation to arouse 0 1B: Ask Month and Age - 0 Questions Right +0 1C: 'Blink Eyes' & 'Squeeze Hands' - Performs 0 Tasks +0 2: Test Horizontal Extraocular Movements - Partial Gaze Palsy: Corrects with Oculocephalic Reflex +1 3: Test Visual [place] - No Visual Loss 0 4: Test Facial Palsy - Normal symmetry 0 5A: Test Left Arm Motor Drift - Some Effort Against [place] 2 5B: Test Right Arm Motor Drift - Some Effort Against [place] +1 6A: Test Left Leg Motor Drift - Some Effort Against [place] +2 6B: Test Right Leg Motor Drift - Some Effort Against [place] +1 7: Test Limb Ataxia - Ataxia in 2 Limbs +2 8: Test Sensation - Complete Loss: Cannot Sense Being Touched At All 0 9: Test Language/Aphasia- Severe Aphasia: Fragmentary Expression, Inference Needed, Cannot Identify Materials 0 10: Test Dysarthria - Mute/Anarthric 0 11: Test Extinction/Inattention - Extinction to bilateral simultaneous stimulation 0 Medical Decision Making: - Extensive number of diagnosis or management options are considered above. - Extensive amount of complex data reviewed. - High risk of complication and/or morbidity or mortality are associated with differential diagnostic considerations above. - There may be Uncertain outcome and increased probability of prolonged functio nal impairment or high probability of severe prolonged functional impairment associated with some of these differential diagnosis. Medical Data Reviewed: 1.Data reviewed include clinical labs, radiology,Medical Tests; 2.Tests results discussed w/performing or interpreting physician; 3.Obtaining/reviewing old medical records; 4.Obtaining case history from another source; 5.Independent review of image, tracing or specimen - Related Data Home Medications: Home Medications Medication Instructions Recorded Confirmed Last Taken Nitroglycerin [Nitrostat] 0.4 mg SL Q5MIN PRN MDD 3 12/20/18 02/01/19 12/26/18 22:00 Rivaroxaban [Xarelto] 10 mg PO DAILY 12/20/18 02/01/19 12/26/18 09:00 Spironolactone [Aldactone] 25 mg PO DAILY 12/20/18 02/01/19 12/26/18 09:00 ALBUTEROL Inhaler (OR & NICU) 2 puff IH Q4-6H PRN 02/01/19 02/01/19 Unknown [ProAir HFA Inhaler] ARIPiprazole [Abilify] 30 mg PO DAILY 02/01/19 02/01/19 Unknown AtorvaSTATin [Lipitor] 20 mg PO DAILY 02/01/19 02/01/19 Unknown Carvedilol [Coreg] 6.25 mg PO BID 02/01/19 02/01/19 Unknown Gabapentin [Neurontin] 100 mg PO TID 02/01/19 02/01/19 Unknown Levothyroxine [Synthroid] 125 mcg PO DAILY 02/01/19 02/01/19 Unknown OLANzapine [ZyPREXA] 5 mg PO DAILY 02/01/19 02/01/19 Unknown Pantoprazole [Protonix TAB] 40 mg PO DAILY 02/01/19 02/01/19 Unknown Potassium Chloride [K-Dur] 40 meq PO TID 02/01/19 02/01/19 Unknown Sucralfate [Carafate] 1 gm PO QID 02/01/19 02/01/19 Unknown Zolpidem [Ambien] 10 mg PO QHS 02/01/19 02/01/19 Unknown clonazePAM [Klonopin] 1 mg PO TID 02/01/19 02/01/19 Unknown levoFLOXacin [Levaquin TAB] 500 mg PO DAILY 02/01/19 02/01/19 Unknown traMADol [Ultram 50 MG tab] 50 mg PO BID PRN 02/01/19 02/01/19 Unknown Allergies/Adverse Reactions: Allergies Allergy/AdvReac Type Severity Reaction Status Date / Time acetaminophen [From Lortab] Allergy Unknown Verified 12/26/18 18:35 aspirin Allergy Unknown Verified 12/26/18 18:35 divalproex sodium Allergy Rash Verified 12/27/18 01:28 [From Depakote] hydrocodone [From Lortab] Allergy Unknown Verified 12/26/18 18:35 latex Allergy Unknown Verified 12/26/18 18:35 nut - unspecified Allergy Unknown Verified 12/26/18 18:35 oxycodone Allergy Unknown Verified 12/26/18 18:35 Penicillins Allergy Rash Verified 12/26/18 18:35 propoxyphene Allergy Rash Verified 12/26/18 18:35 [From Darvocet-N] Sulfa (Sulfonamide Allergy Rash Verified 12/26/18 18:35 Antibiotics) dairy Allergy Unknown Uncoded 11/15/18 05:54 napsylate Allergy Rash Uncoded 11/04/18 05:11 ED Review of Systems ROS: Stated complaint: COLD/RT LEG NUMB/SOME SLURR Other details as noted in HPI ED Past Medical Hx - Past Medical History Previous Medical History?: Yes Hx Hypertension: Yes Hx Congestive Heart Failure: Yes Hx Diabetes: Yes Hx Deep Vein Thrombosis: Yes Hx Psychiatric Treatment: Yes (Bipolar Depressed schizo affective) Hx Asthma: Yes Additional medical history: Hypothyroidism, sleep apnea, DVT, Chronic Back pain, Gastritis, IBS. Hyperlipidemia, Ovarian cyst. Stubbs's palsey - Surgical History Past Surgical History?: Yes Hx Cholecystectomy: Yes Additional Surgical History: Tonsilectomy, Uterine Ablation, Hernia repair, D&C. 2 molar pulled. stiched to nasal cavity. Right Rotator cuff repair. - Social History Smoking Status: Never Smoker - Medications Home Medications: Home Medications Medication Instructions Recorded Confirmed Last Taken Type Nitroglycerin [Nitrostat] 0.4 mg SL Q5MIN PRN MDD 3 12/20/18 02/01/19 12/26/18 22:00 History Rivaroxaban [Xarelto] 10 mg PO DAILY 12/20/18 02/01/19 12/26/18 09:00 History Spironolactone [Aldactone] 25 mg PO DAILY 12/20/18 02/01/19 12/26/18 09:00 History ALBUTEROL Inhaler (OR & NICU) 2 puff IH Q4-6H PRN 02/01/19 02/01/19 Unknown History [ProAir HFA Inhaler] ARIPiprazole [Abilify] 30 mg PO DAILY 02/01/19 02/01/19 Unknown History AtorvaSTATin [Lipitor] 20 mg PO DAILY 02/01/19 02/01/19 Unknown History Carvedilol [Coreg] 6.25 mg PO BID 02/01/19 02/01/19 Unknown History Gabapentin [Neurontin] 100 mg PO TID 02/01/19 02/01/19 Unknown History Levothyroxine [Synthroid] 125 mcg PO DAILY 02/01/19 02/01/19 Unknown History OLANzapine [ZyPREXA] 5 mg PO DAILY 02/01/19 02/01/19 Unknown History Pantoprazole [Protonix TAB] 40 mg PO DAILY 02/01/19 02/01/19 Unknown History Potassium Chloride [K-Dur] 40 meq PO TID 02/01/19 02/01/19 Unknown History Sucralfate [Carafate] 1 gm PO QID 02/01/19 02/01/19 Unknown History Zolpidem [Ambien] 10 mg PO QHS 02/01/19 02/01/19 Unknown History clonazePAM [Klonopin] 1 mg PO TID 02/01/19 02/01/19 Unknown History levoFLOXacin [Levaquin TAB] 500 mg PO DAILY 02/01/19 02/01/19 Unknown History traMADol [Ultram 50 MG tab] 50 mg PO BID PRN 02/01/19 02/01/19 Unknown History ED Neuro Physical Exam - General Limitations: No Limitations ED Course Vital Signs 02/11/19 14:30 Pulse Rate 60 Respiratory 18 Rate Blood Pressure 137/66 Blood Pressure 137/66 [Right] O2 Sat by Pulse 100 Oximetry - Lab Data Result diagrams: 02/11/19 14:20 02/11/19 14:20 Lab Results 02/11/19 02/11/19 02/11/19 Range/Units 14:20 14:20 14:20 WBC 8.7 (4.5-11.0) K/mm3 RBC 4.52 (3.65-5.03) M/mm3 Hgb 12.7 (10.1-14.3) gm/dl Hct 37.3 (30.3-42.9) % MCV 83 (79-97) fl MCH 28 (28-32) pg MCHC 34 (30-34) % RDW 15.0 (13.2-15.2) % Plt Count 287 (140-440) K/mm3 Lymph % (Auto) 26.1 (13.4-35.0) % [place] % (Auto) 6.4 (0.0-7.3) % Eos % (Auto) 2.0 (0.0-4.3) % Baso % (Auto) 0.7 (0.0-1.8) % Lymph # 2.3 (1.2-5.4) K/mm3 Winston # 0.6 (0.0-0.8) K/mm3 Eos # 0.2 (0.0-0.4) K/mm3 Baso # 0.1 (0.0-0.1) K/mm3 Seg Neutrophils % 64.8 (40.0-70.0) % Seg Neutrophils # 5.7 (1.8-7.7) K/mm3 PT 18.1 H (12.2-14.9) Sec. INR 1.54 H (0.87-1.13) APTT 40.4 H (24.2-36.6) Sec. Thrombin Time (15.1-19.6) Sec. Sodium 139 (137-145) mmol/L Potassium 3.9 (3.6-5.0) mmol/L Chloride 98.4 (98-107) mmol/L Carbon Dioxide 30 (22-30) mmol/L Anion Gap 15 mmol/L BUN 11 (7-17) mg/dL Creatinine 0.9 (0.7-1.2) mg/dL Estimated GFR > 60 ml/min BUN/Creatinine Ratio 12 % Glucose 99 (65-100) mg/dL Calcium 9.0 (8.4-10.2) mg/dL Troponin T < 0.010 (0.00-0.029) ng/mL 02/11/19 Range/Units 14:20 WBC (4.5-11.0) K/mm3 RBC (3.65-5.03) M/mm3 Hgb (10.1-14.3) gm/dl Hct (30.3-42.9) % MCV (79-97) fl MCH (28-32) pg MCHC (30-34) % RDW (13.2-15.2) % Plt Count (140-440) K/mm3 Lymph % (Auto) (13.4-35.0) % [place] % (Auto) (0.0-7.3) % Eos % (Auto) (0.0-4.3) % Baso % (Auto) (0.0-1.8) % Lymph # (1.2-5.4) K/mm3 Winston # (0.0-0.8) K/mm3 Eos # (0.0-0.4) K/mm3 Baso # (0.0-0.1) K/mm3 Seg Neutrophils % (40.0-70.0) % Seg Neutrophils # (1.8-7.7) K/mm3 PT (12.2-14.9) Sec. INR (0.87-1.13) APTT (24.2-36.6) Sec. Thrombin Time 15.5 (15.1-19.6) Sec. Sodium (137-145) mmol/L Potassium (3.6-5.0) mmol/L Chloride (98-107) mmol/L Carbon Dioxide (22-30) mmol/L Anion Gap mmol/L BUN (7-17) mg/dL Creatinine (0.7-1.2) mg/dL Estimated GFR ml/min BUN/Creatinine Ratio % Glucose (65-100) mg/dL Calcium (8.4-10.2) mg/dL Troponin T (0.00-0.029) ng/mL Critical care attestation.: If time is entered above; I have spent that time in minutes in the direct care of this critically ill patient, excluding procedure time. ED Disposition Condition: Stable
--- NOTE | 2019-02-11 15:50 | Cat Scan Report ---
PROCEDURE: CT ANGIO HEAD TECHNIQUE: CT angiography of the head performed. IV contrast was administered. Axial images and nehemias nal and sagittal reformatted images were obtained. Rotational MIP reformatted images were obtained. HISTORY: sroke symptoms COMPARISON: None FINDINGS: Both anterior cerebral arteries appear to emanate from the right side, likely an anatomic variant. Ot herwise anterior and posterior cerebral circulations appear intact. No intravascular filling defects seen. No cerebral aneurysm seen. IMPRESSION: There is no acute abnormality identified. This document is electronically signed by Caitie Rosas MD., February 11 2019 03:48:32 PM ET
--- NOTE | 2019-02-11 15:52 | Cat Scan Report ---
PROCEDURE: CT ANGIO NECK TECHNIQUE: CT angiography of the neck performed. IV contrast was administered. Axial images and nehemias nal and sagittal reformatted images and rotational MIP reformatted images were obtained. HISTORY: sroke symptoms COMPARISON: None FINDINGS: Carotid arteries in the neck are patent without evidence for stenosis or dissection. Bilateral vertebral arteries are patent without stenosis or dissection seen. IMPRESSION: There is no significant abnormality identified. This document is electronically signed by Caitie Rosas MD., February 11 2019 03:50:30 PM ET
--- NOTE | 2019-02-11 16:00 | Emergency Department Report ---
ED Neuro Deficit HPI - General Chief Complaint: Neuro Symptoms/Deficit Stated Complaint: COLD/RT LEG NUMB/SOME SLURR Time Seen by Provider: 02/11/19 14:24 Source: patient Mode of arrival: Ambulatory Limitations: No Limitations - History of Present Illness Initial Comments: Patient is a 48-year-old female who is presenting with 15-20 minutes of right-sided weakness. Patient states she was out exercising walking and she developed symptoms and came immediately to the emergency department. Patient states she has a history of atrial fibrillation and is on Cori course as well as hypertension. Patient states that she has difficulty speaking and also facial droop. Patient denies any chest pain shortness of breath nausea vomiting diarrhea next stiffness or headache at this time. - Related Data Home Medications: Home Medications Medication Instructions Recorded Confirmed Last Taken Nitroglycerin [Nitrostat] 0.4 mg SL Q5MIN PRN MDD 3 12/20/18 02/01/19 12/26/18 22:00 Rivaroxaban [Xarelto] 10 mg PO DAILY 12/20/18 02/01/19 12/26/18 09:00 Spironolactone [Aldactone] 25 mg PO DAILY 12/20/18 02/01/19 12/26/18 09:00 ALBUTEROL Inhaler (OR & NICU) 2 puff IH Q4-6H PRN 02/01/19 02/01/19 Unknown [ProAir HFA Inhaler] ARIPiprazole [Abilify] 30 mg PO DAILY 02/01/19 02/01/19 Unknown AtorvaSTATin [Lipitor] 20 mg PO DAILY 02/01/19 02/01/19 Unknown Carvedilol [Coreg] 6.25 mg PO BID 02/01/19 02/01/19 Unknown Gabapentin [Neurontin] 100 mg PO TID 02/01/19 02/01/19 Unknown Levothyroxine [Synthroid] 125 mcg PO DAILY 02/01/19 02/01/19 Unknown OLANzapine [ZyPREXA] 5 mg PO DAILY 02/01/19 02/01/19 Unknown Pantoprazole [Protonix TAB] 40 mg PO DAILY 02/01/19 02/01/19 Unknown Potassium Chloride [K-Dur] 40 meq PO TID 02/01/19 02/01/19 Unknown Sucralfate [Carafate] 1 gm PO QID 02/01/19 02/01/19 Unknown Zolpidem [Ambien] 10 mg PO QHS 02/01/19 02/01/19 Unknown clonazePAM [Klonopin] 1 mg PO TID 02/01/19 02/01/19 Unknown levoFLOXacin [Levaquin TAB] 500 mg PO DAILY 02/01/19 02/01/19 Unknown traMADol [Ultram 50 MG tab] 50 mg PO BID PRN 02/01/19 02/01/19 Unknown Allergies/Adverse Reactions: Allergies Allergy/AdvReac Type Severity Reaction Status Date / Time acetaminophen [From Lortab] Allergy Unknown Verified 12/26/18 18:35 aspirin Allergy Unknown Verified 12/26/18 18:35 divalproex sodium Allergy Rash Verified 12/27/18 01:28 [From Depakote] hydrocodone [From Lortab] Allergy Unknown Verified 12/26/18 18:35 latex Allergy Unknown Verified 12/26/18 18:35 nut - unspecified Allergy Unknown Verified 12/26/18 18:35 oxycodone Allergy Unknown Verified 12/26/18 18:35 Penicillins Allergy Rash Verified 12/26/18 18:35 propoxyphene Allergy Rash Verified 12/26/18 18:35 [From Darvocet-N] Sulfa (Sulfonamide Allergy Rash Verified 12/26/18 18:35 Antibiotics) dairy Allergy Unknown Uncoded 11/15/18 05:54 napsylate Allergy Rash Uncoded 11/04/18 05:11 ED Review of Systems ROS: Stated complaint: COLD/RT LEG NUMB/SOME SLURR Other details as noted in HPI Comment: All other systems reviewed and negative ED Past Medical Hx - Past Medical History Previous Medical History?: Yes Hx Hypertension: Yes Hx Congestive Heart Failure: Yes Hx Diabetes: Yes Hx Deep Vein Thrombosis: Yes Hx Psychiatric Treatment: Yes (Bipolar Depressed schizo affective) Hx Asthma: Yes Additional medical history: Hypothyroidism, sleep apnea, DVT, Chronic Back pain, Gastritis, IBS. Hyperlipidemia, Ovarian cyst. Stubbs's palsey - Surgical History Past Surgical History?: Yes Hx Cholecystectomy: Yes Additional Surgical History: Tonsilectomy, Uterine Ablation, Hernia repair, D&C. 2 molar pulled. stiched to nasal cavity. Right Rotator cuff repair. - Social History Smoking Status: Never Smoker - Medications Home Medications: Home Medications Medication Instructions Recorded Confirmed Last Taken Type Nitroglycerin [Nitrostat] 0.4 mg SL Q5MIN PRN MDD 3 12/20/18 02/01/19 12/26/18 22:00 History Rivaroxaban [Xarelto] 10 mg PO DAILY 12/20/18 02/01/19 12/26/18 09:00 History Spironolactone [Aldactone] 25 mg PO DAILY 12/20/18 02/01/19 12/26/18 09:00 History ALBUTEROL Inhaler (OR & NICU) 2 puff IH Q4-6H PRN 02/01/19 02/01/19 Unknown History [ProAir HFA Inhaler] ARIPiprazole [Abilify] 30 mg PO DAILY 02/01/19 02/01/19 Unknown History AtorvaSTATin [Lipitor] 20 mg PO DAILY 02/01/19 02/01/19 Unknown History Carvedilol [Coreg] 6.25 mg PO BID 02/01/19 02/01/19 Unknown History Gabapentin [Neurontin] 100 mg PO TID 02/01/19 02/01/19 Unknown History Levothyroxine [Synthroid] 125 mcg PO DAILY 02/01/19 02/01/19 Unknown History OLANzapine [ZyPREXA] 5 mg PO DAILY 02/01/19 02/01/19 Unknown History Pantoprazole [Protonix TAB] 40 mg PO DAILY 02/01/19 02/01/19 Unknown History Potassium Chloride [K-Dur] 40 meq PO TID 02/01/19 02/01/19 Unknown History Sucralfate [Carafate] 1 gm PO QID 02/01/19 02/01/19 Unknown History Zolpidem [Ambien] 10 mg PO QHS 02/01/19 02/01/19 Unknown History clonazePAM [Klonopin] 1 mg PO TID 02/01/19 02/01/19 Unknown History levoFLOXacin [Levaquin TAB] 500 mg PO DAILY 02/01/19 02/01/19 Unknown History traMADol [Ultram 50 MG tab] 50 mg PO BID PRN 02/01/19 02/01/19 Unknown History ED Neuro Physical Exam - General Limitations: No Limitations General appearance: alert, in no apparent distress Suspected Stroke: Yes - Head Head exam: Present: atraumatic, normocephalic - Eye Eye exam: Present: normal appearance, PERRL, EOMI - ENT ENT exam: Present: mucous membranes moist - Neck Neck exam: Present: normal inspection - Respiratory Respiratory exam: Present: normal lung sounds bilaterally. Absent: respiratory distress, wheezes, rales, rhonchi - Cardiovascular Cardiovascular Exam: Present: normal rhythm, bradycardia. Absent: systolic murmur, diastolic murmur, rubs, gallop - GI/Abdominal GI/Abdominal exam: Present: soft, normal bowel sounds. Absent: distended, tenderness, guarding, rebound - Extremities Exam Extremities exam: Present: normal inspection - Back Exam Back exam: Present: normal inspection - Neurological Exam Neurological exam: Present: alert, oriented X3, motor sensory deficit. Absent: CN II-XII intact - NIHSS Assessment Interval: Baseline 1a. Level of Consciousness: alert/keenly responsive 1b. LOC Questions: answers both correctly 1c. LOC Commands: performs tasks correctly 2. Best Gaze: normal 3. Visual: no visual loss 4. Facial Palsy: partial paralysis 5b. Motor Arm Right: some gravity effort 5a. Motor Arm Left: drift 6a. Motor Leg Left: no drift 6b. Motor Leg Right: some gravity effort 7. Limb Ataxia: present 2 limbs 8. Sensory: mild/moderate sensory loss 9. Best Language: no aphasia 10. Dysarthria: mild/moderate dysarthria 11. Extinction/Inattention: no abnormality Total Score: 11 Stroke Severity: Moderate Stroke - Psychiatric Psychiatric exam: Present: normal affect, normal mood - Skin Skin exam: Present: warm, dry, intact, normal color. Absent: rash ED Course Vital Signs 02/11/19 02/11/19 02/11/19 14:30 15:00 15:30 Pulse Rate 60 62 74 Respiratory 18 17 18 Rate Blood Pressure 137/66 Blood Pressure 137/66 127/69 128/63 [Right] O2 Sat by Pulse 100 100 100 Oximetry - Lab Data Result diagrams: 02/11/19 14:20 02/11/19 14:20 Lab Results 02/11/19 02/11/19 02/11/19 Range/Units 14:20 14:20 14:20 WBC 8.7 (4.5-11.0) K/mm3 RBC 4.52 (3.65-5.03) M/mm3 Hgb 12.7 (10.1-14.3) gm/dl Hct 37.3 (30.3-42.9) % MCV 83 (79-97) fl MCH 28 (28-32) pg MCHC 34 (30-34) % RDW 15.0 (13.2-15.2) % Plt Count 287 (140-440) K/mm3 Lymph % (Auto) 26.1 (13.4-35.0) % Archer % (Auto) 6.4 (0.0-7.3) % Eos % (Auto) 2.0 (0.0-4.3) % Baso % (Auto) 0.7 (0.0-1.8) % Lymph # 2.3 (1.2-5.4) K/mm3 Archer # 0.6 (0.0-0.8) K/mm3 Eos # 0.2 (0.0-0.4) K/mm3 Baso # 0.1 (0.0-0.1) K/mm3 Seg Neutrophils % 64.8 (40.0-70.0) % Seg Neutrophils # 5.7 (1.8-7.7) K/mm3 PT 18.1 H (12.2-14.9) Sec. INR 1.54 H (0.87-1.13) APTT 40.4 H (24.2-36.6) Sec. Thrombin Time (15.1-19.6) Sec. Sodium 139 (137-145) mmol/L Potassium 3.9 (3.6-5.0) mmol/L Chloride 98.4 (98-107) mmol/L Carbon Dioxide 30 (22-30) mmol/L Anion Gap 15 mmol/L BUN 11 (7-17) mg/dL Creatinine 0.9 (0.7-1.2) mg/dL Estimated GFR > 60 ml/min BUN/Creatinine Ratio 12 % Glucose 99 (65-100) mg/dL Calcium 9.0 (8.4-10.2) mg/dL Troponin T < 0.010 (0.00-0.029) ng/mL 02/11/19 Range/Units 14:20 WBC (4.5-11.0) K/mm3 RBC (3.65-5.03) M/mm3 Hgb (10.1-14.3) gm/dl Hct (30.3-42.9) % MCV (79-97) fl MCH (28-32) pg MCHC (30-34) % RDW (13.2-15.2) % Plt Count (140-440) K/mm3 Lymph % (Auto) (13.4-35.0) % Archer % (Auto) (0.0-7.3) % Eos % (Auto) (0.0-4.3) % Baso % (Auto) (0.0-1.8) % Lymph # (1.2-5.4) K/mm3 Archer # (0.0-0.8) K/mm3 Eos # (0.0-0.4) K/mm3 Baso # (0.0-0.1) K/mm3 Seg Neutrophils % (40.0-70.0) % Seg Neutrophils # (1.8-7.7) K/mm3 PT (12.2-14.9) Sec. INR (0.87-1.13) APTT (24.2-36.6) Sec. Thrombin Time 15.5 (15.1-19.6) Sec. Sodium (137-145) mmol/L Potassium (3.6-5.0) mmol/L Chloride (98-107) mmol/L Carbon Dioxide (22-30) mmol/L Anion Gap mmol/L BUN (7-17) mg/dL Creatinine (0.7-1.2) mg/dL Estimated GFR ml/min BUN/Creatinine Ratio % Glucose (65-100) mg/dL Calcium (8.4-10.2) mg/dL Troponin T (0.00-0.029) ng/mL - EKG Data -: EKG Interpreted by Me 02/11/19 15:58 EKG shows atrial flutter with a rate of 52 axis normal intervals are normal no ST segment elevations or depressions. Interpretation 1450 - Radiology Data [facility] [address] [place] [address] Cat Scan Report Signed Patient: ANETA LIVE MR#: [id number] : 1970 Acct:[id number] Age/Sex: 48 / F ADM Date: 02/11/19 Loc: ED Attending Dr: Ordering Physician: LAWRENCE BLANK MD Date of Service: 02/11/19 Procedure(s): CT head/brain wo con Accession Number(s): [id number] cc: LAWRENCE BLANK MD PROCEDURE: CT HEAD/BRAIN WO CON TECHNIQUE: CT of the head was performed without intravenous contrast. HISTORY: neuro deficits <6hrs or sx present upon awakening SLURRED SPEECH RT LEG WEAK COMPARISONS: None FINDINGS: The ventricles are normal in position and shape. The ventricles are nondilated. No intracranial hemorrhage, mass, mass effect or evidence of acute ischemic infarct. The basilar cisterns are patent. The paranasal sinuses are clear. The mastoid air cells are clear. The orbits are intact. The calvarium is intact. No extracranial soft tissue swelling. IMPRESSION: No acute intracranial abnormality. The negative results were discussed with Dr. Blank by the [facility] staff at 11:28 AM PST on 02/11/2019. This document is electronically signed by Melissa Clemens., February 11 2019 02:29:02 PM ET Transcribed By: MG Dictated By: MELISSA COLEMAN MD Electronically Authenticated By: MELISSA COLEMAN MD Signed Date/Time: 02/11/19 1431 DD/ 1421 TD/TT: 02/11/[address] [facility] [address] [place] [id number] Cat Scan Report Signed Patient: ANETA LIVE MR#: [id number] : 1970 Acct:[id number] Age/Sex: 48 / F ADM Date: 02/11/19 Loc: ED Attending Dr: Ordering Physician: LAWRENCE BLANK MD Date of Service: 02/11/19 Procedure(s): CT angio head Accession Number(s): [id number] cc: LAWRENCE BLANK MD PROCEDURE: CT ANGIO HEAD TECHNIQUE: CT angiography of the head performed. IV contrast was administered. Axial images and coronal and sagittal reformatted images were obtained. Rotational MIP reformatted images were obtained. HISTORY: sroke symptoms COMPARISON: None FINDINGS: Both anterior cerebral arteries appear to emanate from the right side, likely an anatomic variant. Otherwise anterior and posterior cerebral circulations appear intact. No intravascular filling def ects seen. No cerebral aneurysm seen. IMPRESSION: There is no acute abnormality identified. This document is electronically signed by Caitie Rosas MD., February 11 2019 03:48:32 PM ET Transcribed By: SABI Dictated By: CAITIE ROSAS MD Electronically Authenticated By: CAITIE ROSAS MD Signed Date/Time: 02/11/19 1550 DD/ 1531 TD/TT: 02/11/19 - Medical Decision Making Patient is a 48-year-old female who is presenting status post right- sided weakness and slurred speech and facial droop. Patient is not a TPA candidate because of the blood thinners that the patient is on her baseline. Patient to be admitted to the hospitalist service per the instruction of October neurologist. Critical care attestation.: If time is entered above; I have spent that time in minutes in the direct care of this critically ill patient, excluding procedure time. ED Disposition Clinical Impression: Acute CVA (cerebrovascular accident) Disposition: DC-09 OP ADMIT IP TO THIS HOSP Is pt being admited?: Yes Does the pt Need Aspirin: No Condition: Serious Time of Disposition: 16:06
--- NOTE | 2019-02-11 16:05 | History and Physical Report ---
History of Present Illness Chief complaint: I feel weak, and this is new History of present illness: 48 YO Female with Bipolar, Schizoaffective Disorder, Asthma, Hypothyroidism, ANUP, Diastolic CHF, HLD, [place] Palsy, Paroxysmal Atrial Fib, DVT on therapeutic anticoagulation with Xarelto, IBS, Gastritis, presents to ED for evaluation. Pt states that she was in her usual state of health today and was out walking when she experienced an acute onset of slurred speech, facial weakness which lasted for over 2 hours and right arm and leg weakness that lasted approximately 20 minutes. Pt transported to [facility] via private vehicle. Pt seen and evaluated in ED. A code strike was called upon arrival. Pt seen and evaluated in ED and found to have symptoms consistent with Acute CVA. Pt admitted to telemetry. Teleneurology consulted in ED, and patient deemed not a candidate for TPA. Pt denies fever, chills, CP, Palpitations, NVD, Trauma, BRBPR, Syncope, Vertigo, loss of bowel/bladder continence, or recent ill contacts. Prior admission on 02/01/19 reviewed. All listed medication reconciled at time of admission. Neurology consulted in ED. Pt admitted to telemetry. Past History Past Medical History: atrial fib, DVT, heart failure, hypertension, hypothyroidism, other (ANUP,IBS,) Past Surgical History: cholecystectomy, hernia repair, Other (Tonsilectomy, Uterine Ablation, Hernia repair, D&C. 2 molar pulled. stiched to nasal cavity. Right Rotator cuff repair.) Social history: single Family history: CAD, hypertension Medications and Allergies Allergies Allergy/AdvReac Type Severity Reaction Status Date / Time acetaminophen [From Lortab] Allergy Unknown Verified 12/26/18 18:35 aspirin Allergy Unknown Verified 12/26/18 18:35 divalproex sodium Allergy Rash Verified 12/27/18 01:28 [From Depakote] hydrocodone [From Lortab] Allergy Unknown Verified 12/26/18 18:35 latex Allergy Unknown Verified 12/26/18 18:35 nut - unspecified Allergy Unknown Verified 12/26/18 18:35 oxycodone Allergy Unknown Verified 12/26/18 18:35 Penicillins Allergy Rash Verified 12/26/18 18:35 propoxyphene Allergy Rash Verified 12/26/18 18:35 [From Darvocet-N] Sulfa (Sulfonamide Allergy Rash Verified 12/26/18 18:35 Antibiotics) dairy Allergy Unknown Uncoded 11/15/18 05:54 napsylate Allergy Rash Uncoded 11/04/18 05:11 Home Medications Medication Instructions Recorded Confirmed Last Taken Type Nitroglycerin [Nitrostat] 0.4 mg SL Q5MIN PRN MDD 3 12/20/18 02/01/19 12/26/18 22:00 History Rivaroxaban [Xarelto] 10 mg PO DAILY 12/20/18 02/01/19 12/26/18 09:00 History Spironolactone [Aldactone] 25 mg PO DAILY 12/20/18 02/01/19 12/26/18 09:00 History ALBUTEROL Inhaler (OR & NICU) 2 puff IH Q4-6H PRN 02/01/19 02/01/19 Unknown History [ProAir HFA Inhaler] ARIPiprazole [Abilify] 30 mg PO DAILY 02/01/19 02/01/19 Unknown History AtorvaSTATin [Lipitor] 20 mg PO DAILY 02/01/19 02/01/19 Unknown History Carvedilol [Coreg] 6.25 mg PO BID 02/01/19 02/01/19 Unknown History Gabapentin [Neurontin] 100 mg PO TID 02/01/19 02/01/19 Unknown History Levothyroxine [Synthroid] 125 mcg PO DAILY 02/01/19 02/01/19 Unknown History OLANzapine [ZyPREXA] 5 mg PO DAILY 02/01/19 02/01/19 Unknown History Pantoprazole [Protonix TAB] 40 mg PO DAILY 02/01/19 02/01/19 Unknown History Potassium Chloride [K-Dur] 40 meq PO TID 02/01/19 02/01/19 Unknown History Sucralfate [Carafate] 1 gm PO QID 02/01/19 02/01/19 Unknown History Zolpidem [Ambien] 10 mg PO QHS 02/01/19 02/01/19 Unknown History clonazePAM [Klonopin] 1 mg PO TID 02/01/19 02/01/19 Unknown History levoFLOXacin [Levaquin TAB] 500 mg PO DAILY 02/01/19 02/01/19 Unknown History traMADol [Ultram 50 MG tab] 50 mg PO BID PRN 02/01/19 02/01/19 Unknown History Review of Systems Constitutional: no weight loss, no weight gain, no fever, no chills Ears, nose, mouth and throat: no ear pain, no ear discharge, no tinnitis, no nose pain Breasts: no change in shape, no swelling, no mass Cardiovascular: no chest pain, no orthopnea, no palpitations, no rapid/irregular heart beat Respiratory: no cough, no cough with sputum, no excessive sputum, no hemoptysis Gastrointestinal: no nausea, no vomiting, no diarrhea, no constipation Genitourinary Female: no pelvic pain, no flank pain, no menorrhagia, no dysuria, no urinary frequency, no urgency Rectal: no pain, no incontinence, no bleeding Musculoskeletal: no neck stiffness, no neck pain, no shooting arm pain, no arm numbness/tingling, no low back pain Integumentary: no rash, no pruritis, no redness, no sores, no jaundice Neurological: no transient paralysis, no paralysis, no weakness, no parathesias, no numbness, no tingling, no seizures Psychiatric: no anxiety, no memory loss, no change in sleep habits, no sleep disturbances, no insomnia, no hypersomnia, no change in appetite Endocrine: no cold intolerance, no heat intolerance, no polyphagia, no excessive thirst, no polydipsia, no polyuria Hematologic/Lymphatic: no easy bruising, no easy bleeding, no lymphedema Allergic/Immunologic: no urticaria, no allergic rhinitis, no wheezing, no anaphylaxis Exam - Constitutional Vitals: Temp Pulse Resp BP Pulse Ox 74 18 128/63 100 02/11/19 15:30 02/11/19 15:30 02/11/19 15:30 02/11/19 15:30 General appearance: Present: no acute distress, well-nourished - EENT Eyes: Present: PERRL ENT: hearing intact, clear oral mucosa - Neck Neck: Present: supple, normal ROM - Respiratory Respiratory effort: normal Respiratory: bilateral: CTA - Cardiovascular Heart Sounds: Present: S1 & S2. Absent: rub, click - Extremities Extremities: pulses symmetrical, No edema Peripheral Pulses: within normal limits - Abdominal General gastrointestinal: Present: soft, non-tender, non-distended, normal bowel sounds Female genitourinary: Present: normal - Integumentary Integumentary: Present: clear, warm, dry - Musculoskeletal Musculoskeletal: gait normal, strength equal bilaterally - Psychiatric Psychiatric: appropriate mood/affect, intact judgment & insight - Neurologic Neurologic: CNII-XII intact, moves all extremities Results - Labs CBC & Chem 7: 02/11/19 14:20 02/11/19 14:20 Labs: Abnormal lab results 02/11/19 Range/Units 14:20 PT 18.1 H (12.2-14.9) Sec. INR 1.54 H (0.87-1.13) APTT 40.4 H (24.2-36.6) Sec. Assessment and Plan - Patient Problems (1) Acute CVA (cerebrovascular accident) Current Visit: Yes Status: Acute Plan to address problem: Stroke Protocol: Admit to telemetry, MRI Brain, MRA Brain, CT head, Echo reviewed from 02/01/19, Carotid Doppler reviewed fron 02/02/19, Antiplatelet therapy, Stroke neurology notified, Neurology consulted in ED. (2) Diastolic CHF Current Visit: Yes Status: Acute Qualifiers: Heart failure chronicity: chronic Qualified Code(s): I50.32 - Chronic diastolic (congestive) heart failure Plan to address problem: Strict I/O, daily weight, supplemental oxygen, pulse oximetry, nebulizer therapy, afterload reduction, blood pressure control. (3) Bipolar disorder Current Visit: No Status: Acute Qualifiers: Active/Remission status: in full remission Plan to address problem: Supportive care, continue prehospital medication:POA (4) Schizoaffective disorder Current Visit: Yes Status: Acute Plan to address problem: continue prehospital medication: POA (5) Hypothyroidism Current Visit: Yes Status: Acute Qualifiers: Hypothyroidism type: acquired Qualified Code(s): E03.9 - Hypothyroidism, unspecified Plan to address problem: Thyroid supplementation, continue synthroid, (6) Atrial fibrillation Current Visit: Yes Status: Acute Qualifiers: Atrial fibrillation type: paroxysmal Qualified Code(s): I48.0 - Paroxysmal atrial fibrillation Plan to address problem: rate currently controlled, continue therapeutic anticoagulation, telemetry monitoring. (7) Diabetes Current Visit: Yes Status: Acute Plan to address problem: ADA diet, insulin, accu check, hypoglycemia protocol. (8) DVT (deep venous thrombosis) Current Visit: Yes Status: Acute Plan to address problem: Prophylactic anticoagulation, supportive care. (9) DVT prophylaxis Current Visit: No Status: Acute Plan to address problem: SCD to BLE while in bed, continue therapeutic anticoagulation.
[2019-02-11] MEDS ORDERED: ZOFRAN IV PRN (16:11)
[2019-02-11] MEDS ORDERED: REGLAN PO PRN (16:11)
[2019-02-11] MEDS ORDERED: DULCOLAX PR PRN (16:11)
[2019-02-11] MEDS ORDERED: SODIUM CHLORIDE FLUSH SYRINGE 10 ML IV PRN (16:11)
[2019-02-11] MEDS ORDERED: MILK OF MAGNESIA PO PRN (16:11)
[2019-02-11] MEDS ORDERED: PROVENTIL IH PRN (16:11)
[2019-02-11] MEDS ORDERED: PHENERGAN PR PRN (16:11)
[2019-02-11] MEDS ORDERED: TYLENOL PO PRN (16:11)
[2019-02-11] MEDS ORDERED: NITROSTAT SL PRN (16:14)
[2019-02-11] MEDS ORDERED: ULTRAM PO PRN (16:14)
[2019-02-11] MEDS ORDERED: K-DUR PO ONE (17:00)
[2019-02-11] MEDS: PROTONIX PO SCH (18:17)
[2019-02-11] MEDS: CARAFATE PO SCH ×2 (18:17→21:40)
[2019-02-11] MEDS: XARELTO PO SCH (18:25)
[2019-02-11] MEDS ORDERED: NON-FORMULARY (Clonazepam [Klonopin] 1 MG) PO SCH (20:00)
[2019-02-11] MEDS: NEURONTIN PO SCH (21:39)
[2019-02-11] MEDS: AMBIEN PO SCH (21:39)
[2019-02-11] MEDS: COREG PO SCH (21:39)
[2019-02-12] MEDS: SYNTHROID PO SCH (06:40)
[2019-02-12] MEDS: NEURONTIN PO SCH ×3 (08:39→22:15)
[2019-02-12] MEDS: ABILIFY PO SCH (09:26)
[2019-02-12] MEDS: COREG PO SCH ×2 (09:27→22:15)
[2019-02-12] MEDS: CARAFATE PO SCH ×4 (09:27→22:15)
[2019-02-12] MEDS: XARELTO PO SCH (09:27)
[2019-02-12] MEDS: ALDACTONE PO SCH (09:27)
[2019-02-12] MEDS: PROTONIX PO SCH (09:27)
[2019-02-12] MEDS ORDERED: ASPIRIN PO SCH (10:00)
[2019-02-12] MEDS ORDERED: ARIPIPRAZOLE 30 MG PO SCH (10:00)
--- NOTE | 2019-02-12 10:46 | Consultation ---
Past History Past Medical History: atrial fib, DVT, heart failure, hypertension, hypothyroidism, other (ANUP,IBS,) Past Surgical History: cholecystectomy, hernia repair, Other (Tonsilectomy, Uterine Ablation, Hernia repair, D&C. 2 molar pulled. stiched to nasal cavity. Right Rotator cuff repair.) Social history: single Family history: CAD, hypertension Medications and Allergies Allergies Allergy/AdvReac Type Severity Reaction Status Date / Time acetaminophen [From Lortab] Allergy Unknown Verified 12/26/18 18:35 aspirin Allergy Unknown Verified 12/26/18 18:35 divalproex sodium Allergy Rash Verified 12/27/18 01:28 [From Depakote] hydrocodone [From Lortab] Allergy Unknown Verified 12/26/18 18:35 latex Allergy Unknown Verified 12/26/18 18:35 nut - unspecified Allergy Unknown Verified 12/26/18 18:35 oxycodone Allergy Unknown Verified 12/26/18 18:35 Penicillins Allergy Rash Verified 12/26/18 18:35 propoxyphene Allergy Rash Verified 12/26/18 18:35 [From Darvocet-N] Sulfa (Sulfonamide Allergy Rash Verified 12/26/18 18:35 Antibiotics) dairy Allergy Unknown Uncoded 11/15/18 05:54 napsylate Allergy Rash Uncoded 11/04/18 05:11 Home Medications Medication Instructions Recorded Confirmed Last Taken Type Nitroglycerin [Nitrostat] 0.4 mg SL Q5MIN PRN MDD 3 12/20/18 02/01/19 12/26/18 22:00 History Rivaroxaban [Xarelto] 10 mg PO DAILY 12/20/18 02/01/19 12/26/18 09:00 History Spironolactone [Aldactone] 25 mg PO DAILY 12/20/18 02/01/19 12/26/18 09:00 History ALBUTEROL Inhaler (OR & NICU) 2 puff IH Q4-6H PRN 02/01/19 02/01/19 Unknown History [ProAir HFA Inhaler] ARIPiprazole [Abilify] 30 mg PO DAILY 02/01/19 02/01/19 Unknown History AtorvaSTATin [Lipitor] 20 mg PO DAILY 02/01/19 02/01/19 Unknown History Carvedilol [Coreg] 6.25 mg PO BID 02/01/19 02/01/19 Unknown History Gabapentin [Neurontin] 100 mg PO TID 02/01/19 02/01/19 Unknown History Levothyroxine [Synthroid] 125 mcg PO DAILY 02/01/19 02/01/19 Unknown History OLANzapine [ZyPREXA] 5 mg PO DAILY 02/01/19 02/01/19 Unknown History Pantoprazole [Protonix TAB] 40 mg PO DAILY 02/01/19 02/01/19 Unknown History Potassium Chloride [K-Dur] 40 meq PO TID 02/01/19 02/01/19 Unknown History Sucralfate [Carafate] 1 gm PO QID 02/01/19 02/01/19 Unknown History Zolpidem [Ambien] 10 mg PO QHS 02/01/19 02/01/19 Unknown History clonazePAM [Klonopin] 1 mg PO TID 02/01/19 02/01/19 Unknown History levoFLOXacin [Levaquin TAB] 500 mg PO DAILY 02/01/19 02/01/19 Unknown History traMADol [Ultram 50 MG tab] 50 mg PO BID PRN 02/01/19 02/01/19 Unknown History Active Meds: Active Medications Acetaminophen (Tylenol) 650 mg PO Q4H PRN PRN Reason: Pain, Mild (1-3) Albuterol (Proventil) 2.5 mg IH Q3H PRN PRN Reason: Shortness Of Breath Aripiprazole (Abilify) 30 mg PO QDAY [facility] Last Admin: 02/12/19 09:26 Dose: 30 mg Documented by: Aspirin (Aspirin) 325 mg PO QDAY [facility] Atorvastatin Calcium (Lipitor) 40 mg PO QHS [facility] Last Admin: 02/11/19 21:39 Dose: 40 mg Documented by: Bisacodyl (Dulcolax) 10 mg [place] QDAY PRN PRN Reason: Constipation Carvedilol (Coreg) 6.25 mg PO BID [facility] Last Admin: 02/12/19 09:27 Dose: 6.25 mg Documented by: Clonazepam (Klonopin) 1 mg PO TID [facility] Last Admin: 02/12/19 08:39 Dose: 1 mg Documented by: Gabapentin (Neurontin) 100 mg PO TID [facility] Last Admin: 02/12/19 08:39 Dose: 100 mg Documented by: Levothyroxine Sodium (Synthroid) 125 mcg PO DAILY@0600 [facility] Last Admin: 02/12/19 06:40 Dose: 125 mcg Documented by: Magnesium Hydroxide (Milk Of Magnesia) 30 ml PO Q4H PRN PRN Reason: Constipation Metoclopramide HCl (Reglan) 10 mg PO Q6H PRN PRN Reason: Nausea And Vomiting Nitroglycerin (Nitrostat) 0.4 mg SL Q5MIN PRN PRN Reason: Chest Pain Olanzapine (Zyprexa) 5 mg PO DAILY [facility] Ondansetron HCl (Zofran) 4 mg IV Q8H PRN PRN Reason: Nausea And Vomiting Pantoprazole Sodium (Protonix) 40 mg PO DAILY [facility] Last Admin: 02/12/19 09:27 Dose: 40 mg Documented by: Pneumococcal Polyvalent Vaccine (Pneumovax 23) 0.5 ml IM .ONCE ONE Stop: 02/12/19 12:01 Potassium Chloride (K-Dur) 40 meq PO TID [facility] Promethazine HCl (Phenergan) 25 mg [place] Q6H PRN PRN Reason: Nausea And Vomiting Rivaroxaban (Xarelto) 10 mg PO DAILY [facility]; Protocol Last Admin: 02/12/19 09:27 Dose: 10 mg Documented by: Sodium Chloride (Sodium Chloride Flush Syringe 10 Ml) 10 ml IV PRN PRN PRN Reason: LINE FLUSH Spironolactone (Aldactone) 25 mg PO DAILY [facility] Last Admin: 02/12/19 09:27 Dose: Not Given Documented by: Sucralfate (Carafate) 1 gm PO QID [facility] Last Admin: 02/12/19 09:27 Dose: 1 gm Documented by: Tramadol HCl (Ultram) 50 mg PO BID PRN PRN Reason: Pain Zolpidem Tartrate (Ambien) 10 mg PO QHS [facility] Last Admin: 02/11/19 21:39 Dose: 10 mg Documented by: Physical Examination - Vital Signs Vital Signs: Vital Signs Pulse Resp BP Pulse Ox 74 17 137/66 100 02/11/19 14:30 02/11/19 14:30 02/11/19 14:30 02/11/19 14:30 Results - Laboratory Findings CBC and BMP: 02/11/19 14:20 02/11/19 14:20 Abnormal Lab Findings: Abnormal Labs 02/11/19 14:20 PT 18.1 H INR 1.54 H APTT 40.4 H Assessment and Plan Mrs. Denis is a 48-year-old female with history of DVT, bipolar disorder, CHF who also carries a diagnosis of atrial fibrillation came with a sudden onset of right-sided weakness associated with slurred speech and weakness and numbness on the left side of the face. After admission CT scan of the brain did not show any infarct and also CT angiogram of the head and neck did not show any blockage or any other abnormality of the blood vessels. The patient was admitted with a diagnosis of stroke. She was not given TPA because she was taking Xarelto. Patient states that she had few episodes of DVT particularly started after t aking Xarelto which was started about a year ago. Prior to that she was on apixaban with good control of symptoms. DVT runs in the family in that her mother and both brother had episodes of pulmonary embolism. Physical examination. Mental status. Patient is alert and appropriate has insight into her problems and answers questions appropriately. She has a normal mental status. Speech . Has minimal dysarthria,no aphasia Heart normal rate and rhythm Carotids Both. Palpable no bruit Cranial nerves. Patient has decreased sensation to light touch on the left side of the face. And also has mild left facial weakness sparing the left forehead. Motor. Patient has weak right upper and lower extremity, she can raise her right upper extremity against the gravity and also can raise right lower extremity against gravity. Reflexes reflexes are slightly increased on the right side with equivocal toe on the right side. Sensory examination. Patient has slightly decreased sensation on the right upper and lower extremity as compared to the left Coordination. [id number] within normal limit. Impression. Patient has almost equal weakness on the right upper and lower extremity without any aphasia indicating that she could have a lacunar infarct in the left internal capsule. Recommendation. #1 MRI of the brain to look for infarct in the left internal capsule #2 please check lipid profile including T4 TSH #3. Consult PT and OT, need for speech therapy #4. Further recommendations to follow after the workup is done.
--- NOTE | 2019-02-12 11:49 | Magnetic Resonance Report ---
MRA HEAD WITHOUT CONTRAST HISTORY: Cerebrovascular accident. COMPARISON: CTA head and neck 02/11/2019. TECHNIQUE: Routine MRA of the head performed. 3-D/MIP reformats postprocessed. CONTRAST: none FINDINGS: MRA HEAD: OVERVIEW: There is no evidence of intracranial stenosis or large vessel occlusion. There is no eviden ce of aneurysm or other vascular malformation. Intracranial vertebral arteries: No significant abnormality. Basilar artery: No significant abnormality. Posterior cerebral arteries: No significant abnormality. Intracranial internal carotid arteries: Artifactual narrowing of the distal cervical segments of the internal carotid arteries is noted just below the level of the skull base. Recent CTA head and neck d emonstrated no abnormality in these locations. 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 This is a normal anatomical variation of the [place]. The an terior cerebral arteries have an otherwise unremarkable appearance. Middle cerebral arteries: No significant abnormality. Additional findings: None. IMPRESSION: 1. No abnormality on MRA head. 2. No interval change since CTA head 02/11/2019. Signer Name: Shelton Rosenberg MD Signed: 02/12/2019 11:45 AM Workstation Name: [id number]
--- NOTE | 2019-02-12 11:57 | Magnetic Resonance Report ---
MRI BRAIN 02/12/2019 INDICATION / CLINICAL INFORMATION: stroke. TECHNIQUE: Multiplanar, multisequence MR images of the brain were obtained. COMPARISON: None available. FINDINGS: BRAIN / INTRACRANIAL CONTENTS: Unenhanced MR images of the brain demonstrate no evidence of acute int racranial abnormality. Ventricles and sulci are normal in size and shape. There is no evidence of ischemic injury, demyelination, hemorrhage, or mass. There are no abnormal ex tra-axial fluid collections. EXTRACRANIAL: Unremarkable CRANIOCERVICAL JUNCTION: No significant abnormality. VASCULAR FLOW-VOIDS: No significant abnormality. IMPRESSION: Negative unenhanced MRI of the brain. Signer Name: Lorenzo Sanches MD Signed: 02/12/2019 11:52 AM Workstation Name: [id number]
[2019-02-12] MEDS ORDERED: PNEUMOVAX 23 IM ONE (12:00)
[2019-02-12] MEDS: K-DUR PO SCH ×2 (13:26→22:15)
--- NOTE | 2019-02-12 16:52 | Progress Note ---
Assessment and Plan Assessment and plan: 48 YO Female with Bipolar, Schizoaffective Disorder, Asthma, Hypothyroidism, ANUP, Diastolic CHF, HLD, [place] Palsy, Paroxysmal Atrial Fib, DVT on therapeutic anticoagulation with Xarelto, IBS, Gastritis, presents to ED for evaluation. Pt states that she was in her usual state of health today and was out walking when she experienced an acute onset of slurred speech, facial weakness which lasted for over 2 hours and right arm and leg weakness that lasted approximately 20 minutes. Pt transported to [facility] via private vehicle. Pt seen and evaluated in ED. A code strike was called upon arrival. Pt seen and evaluated in ED and found to have symptoms consistent with Acute CVA. Pt admitted to telemetry. Teleneurology consulted in ED, and patient deemed not a candidate for TPA. Pt denies fever, chills, CP, Palpitations, NVD, Trauma, BRBPR, Syncope, Vertigo, loss of bowel/bladder continence, or recent ill contacts. Prior admission on 02/01/19 reviewed. All listed medication reconciled at time of admission. Neurology consulted in ED. Pt admitted to telemetry - Patient Problems (1) TIA Current Visit: Yes Status: Acute Plan to address problem: Stroke Protocol: Admit to telemetry, MRI Brain, MRA Brain, Echo reviewed from 02/01/19, Carotid Doppler reviewed fron 02/02/19, Antiplatelet therapy, Stroke neurology notified, Neurology consulted and input noted. (2) Diastolic CHF Current Visit: Yes Status: Acute Qualifiers: Heart failure chronicity: chronic Qualified Code(s): I50.32 - Chronic diastolic (congestive) heart failure Plan to address problem: Strict I/O, daily weight, supplemental oxygen, pulse oximetry, nebulizer therapy, afterload reduction, blood pressure control. (3) Bipolar disorder Current Visit: No Status: Acute Qualifiers: Active/Remission status: in full remission Plan to address problem: Supportive care, continue prehospital medication:POA (4) Schizoaffective disorder Current Visit: Yes Status: Acute Plan to address problem: continue prehospital medication: POA (5) Hypothyroidism Current Visit: Yes Status: Acute Qualifiers: Hypothyroidism type: acquired Qualified Code(s): E03.9 - Hypothyroidism, unspecified Plan to address problem: Thyroid supplementation, continue synthroid, (6) Atrial fibrillation Current Visit: Yes Status: Acute Qualifiers: Atrial fibrillation type: paroxysmal Qualified Code(s): I48.0 - Paroxysmal atrial fibrillation Plan to address problem: rate currently controlled, continue therapeutic anticoagulation, telemetry monitoring. (7) Diabetes Current Visit: Yes Status: Acute Plan to address problem: ADA diet, insulin, accu check, hypoglycemia protocol. (8) DVT (deep venous thrombosis) Current Visit: Yes Status: Acute Plan to address problem: Prophylactic anticoagulation, supportive care. (9) DVT prophylaxis Current Visit: No Status: Acute Plan to address problem: SCD to BLE while in bed, continue therapeutic anticoagulation. Anticipate discharge in AM if MRI is negative History Interval history: Patient seen and examined this morning with no new complaints. Reports improvement in right lower extremity weakness that was reported on admission. Reports feeling feverish but no fever documented. Patient was she's followed by some [facility] Hospitalist Physical - Physical exam Narrative exam: VITAL SIGNS: Reviewed. GENERAL: The patient appeared well nourished and normally developed, Vital signs as documented. HEAD: No signs of head trauma. EYES: Pupils are equal. Extraocular motions intact. EARS: Hearing grossly intact. MOUTH: Oropharynx is normal. NECK: No adenopathy, no JVD. CHEST: Chest with clear breath sounds bilaterally. No wheezes, rales, or rhonchi. CARDIAC: Regular rate and rhythm. S1 and S2, without murmurs, gallops, or rubs. VASCULAR: No Edema. Peripheral pulses normal and equal in all extremities. ABDOMEN: Soft, non tender and non distended. No rebound or guarding, and no masses palpated. Bowel Sounds normal. MUSCULOSKELETAL: Good range of motion of all major joints. Extremities without clubbing, cyanosis or edema. NEUROLOGIC EXAM: Alert and oriented x 3 decreased sensation light touch left side of the face. 4/5 motor strenght bilaterally. Speech normal. Follows c ommands. PSYCHIATRIC: Mood normal. SKIN: No rash or lesions. - Constitutional Vitals: Temp Pulse Resp BP Pulse Ox 98.6 F 69 16 114/52 93 02/12/19 16:05 02/12/19 16:05 02/12/19 16:05 02/12/19 16:05 02/12/19 16:05 General appearance: Present: no acute distress, well-nourished Results - Labs CBC & Chem 7: 02/11/19 14:20 02/11/19 14:20 Labs: Laboratory Last Values WBC 8.7 K/mm3 (4.5-11.0) 02/11/19 14:20 RBC 4.52 M/mm3 (3.65-5.03) 02/11/19 14:20 Hgb 12.7 gm/dl (10.1-14.3) 02/11/19 14:20 Hct 37.3 % (30.3-42.9) 02/11/19 14:20 MCV 83 fl (79-97) 02/11/19 14:20 MCH 28 pg (28-32) 02/11/19 14:20 MCHC 34 % (30-34) 02/11/19 14:20 RDW 15.0 % (13.2-15.2) 02/11/19 14:20 Plt Count 287 K/mm3 (140-440) 02/11/19 14:20 Lymph % (Auto) 26.1 % (13.4-35.0) 02/11/19 14:20 [place] % (Auto) 6.4 % (0.0-7.3) 02/11/19 14:20 Eos % (Auto) 2.0 % (0.0-4.3) 02/11/19 14:20 Baso % (Auto) 0.7 % (0.0-1.8) 02/11/19 14:20 Lymph # 2.3 K/mm3 (1.2-5.4) 02/11/19 14:20 [place] # 0.6 K/mm3 (0.0-0.8) 02/11/19 14:20 Eos # 0.2 K/mm3 (0.0-0.4) 02/11/19 14:20 Baso # 0.1 K/mm3 (0.0-0.1) 02/11/19 14:20 Seg Neutrophils % 64.8 % (40.0-70.0) 02/11/19 14:20 Seg Neutrophils # 5.7 K/mm3 (1.8-7.7) 02/11/19 14:20 PT 18.1 Sec. (12.2-14.9) H 02/11/19 14:20 INR 1.54 (0.87-1.13) H 02/11/19 14:20 APTT 40.4 Sec. (24.2-36.6) H 02/11/19 14:20 15.5 Sec. (15.1-19.6) 02/11/19 14:20 Sodium 139 mmol/L (137-145) 02/11/19 14:20 Potassium 3.9 mmol/L (3.6-5.0) 02/11/19 14:20 Chloride 98.4 mmol/L (98-107) 02/11/19 14:20 Carbon Dioxide 30 mmol/L (22-30) 02/11/19 14:20 15 mmol/L 02/11/19 14:20 BUN 11 mg/dL (7-17) 02/11/19 14:20 0.9 mg/dL (0.7-1.2) 02/11/19 14:20 Estimated GFR > 60 ml/min 02/11/19 14:20 12 % 02/11/19 14:20 Glucose 99 mg/dL (65-100) 02/11/19 14:20 POC Glucose 101 (70-105) 02/11/19 14:12 Calcium 9.0 mg/dL (8.4-10.2) 02/11/19 14:20 < 0.010 ng/mL (0.00-0.029) 02/11/19 14:20 Triglycerides 88 mg/dL (2-149) 02/12/19 12:22 Cholesterol 123 mg/dL (50-199) 02/12/19 12:22 72 mg/dL (50-130) 02/12/19 12:22 41 mg/dL (40-59) 02/12/19 12:22 3.00 % 02/12/19 12:22 TSH 0.591 mlU/mL (0.270-4.200) 02/12/19 11:59 Active Medications - Current Medications Current Medications: Generic Name Dose Route Start Last Admin Trade Name Freq PRN Reason Stop Dose Admin Albuterol 2.5 mg 02/11/19 16:11 Proventil IH Q3H PRN Shortness Of Breath Aripiprazole 30 mg 02/12/19 10:00 02/12/19 09:26 Abilify PO 30 mg QDAY [facility] Administration Atorvastatin Calcium 40 mg 02/11/19 22:00 02/11/19 21:39 Lipitor PO 40 mg QHS [facility] Administration Bisacodyl 10 mg 02/11/19 16:11 Dulcolax [place] QDAY PRN Constipation Carvedilol 6.25 mg 02/11/19 22:00 02/12/19 09:27 Coreg PO 6.25 mg BID [facility] Administration Clonazepam 1 mg 02/11/19 20:00 02/12/19 13:25 Klonopin PO 1 mg TID [facility] Administration Gabapentin 100 mg 02/11/19 20:00 02/12/19 13:25 Neurontin PO 100 mg TID [facility] Administration Levothyroxine Sodium 125 mcg 02/12/19 06:00 02/12/19 06:40 Synthroid PO 125 mcg DAILY@0600 [facility] Administration Magnesium Hydroxide 30 ml 02/11/19 16:11 Milk Of Magnesia PO Q4H PRN Constipation Metoclopramide HCl 10 mg 02/11/19 16:11 Reglan PO Q6H PRN Nausea And Vomiting Nitroglycerin 0.4 mg 02/11/19 16:14 Nitrostat SL Q5MIN PRN Chest Pain Olanzapine 5 mg 02/12/19 10:00 02/12/19 11:26 Zyprexa PO 5 mg DAILY [facility] Administration Ondansetron HCl 4 mg 02/11/19 16:11 Zofran IV Q8H PRN Nausea And Vomiting Pantoprazole Sodium 40 mg 02/11/19 17:00 02/12/19 09:27 Protonix PO 40 mg DAILY [facility] Administration Potassium Chloride 40 meq 02/12/19 14:00 02/12/19 13:26 K-Dur PO 40 meq TID [facility] Administration Promethazine HCl 25 mg 02/11/19 16:11 Phenergan [place] Q6H PRN Nausea And Vomiting Rivaroxaban 10 mg 02/11/19 18:14 02/12/19 09:27 Xarelto PO 10 mg DAILY [facility] Administration Protocol Sodium Chloride 10 ml 02/11/19 16:11 Sodium Chloride Flush Syringe 10 Ml IV PRN PRN LINE FLUSH Spironolactone 25 mg 02/12/19 10:00 02/12/19 09:27 Aldactone PO Not Given DAILY [facility] Sucralfate 1 gm 02/11/19 18:00 02/12/19 13:26 Carafate PO 1 gm QID [facility] Administration Tramadol HCl 50 mg 02/11/19 16:14 Ultram PO BID PRN Pain Zolpidem Tartrate 10 mg 02/11/19 22:00 02/11/19 21:39 Ambien PO 10 mg QHS [facility] Administration Nutrition/Malnutrition Assess - Dietary Evaluation Nutrition/Malnutrition Findings: Nutrition Notes Start: 02/12/19 16:24 Freq: Status: Active Protocol: Document 02/12/19 16:24 RM (Rec: 02/12/19 16:26 RM [id number]) Nutrition Notes 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 No A1c in record. BG WNL. Nutrition Intervention Revisit per MD consult or patient Sign Off request:
[2019-02-12] MEDS: AMBIEN PO SCH (22:15)
[2019-02-13] MEDS: SYNTHROID PO SCH (05:22)
[2019-02-13 09:46] VITALS: BP 111/62
[2019-02-13] MEDS: ABILIFY PO SCH (09:59)
[2019-02-13] MEDS: K-DUR PO SCH ×2 (09:59→15:07)
[2019-02-13] MEDS: XARELTO PO SCH (10:00)
[2019-02-13] MEDS: ALDACTONE PO SCH (10:00)
[2019-02-13] MEDS: CARAFATE PO SCH ×3 (10:02→18:19)
[2019-02-13] MEDS: NEURONTIN PO SCH ×2 (10:02→15:08)
[2019-02-13] MEDS: PROTONIX PO SCH (10:03)
[2019-02-13] MEDS: COREG PO SCH (10:03)
--- NOTE | 2019-02-13 15:28 | Discharge Summary ---
Providers - Providers Date of Admission: 02/11/19 16:12 Date of discharge: 02/13/19 Attending physician: LUIS MCKINNEY 02/11/19 16:12 Occupational Therapy Evaluate and Treat [CONS] Routine Comment: Reason For Exam: Neuro deficits Physical Therapy Evaluation and Treat [CONS] Routine Comment: Reason For Exam: Neuro deficits 02/11/19 16:19 Consult to Physician [CONS] Routine Comment: Consulting Provider: KAYLYN GAUTAM Physician Instructions: Reason For Exam: cva Primary care physician: LESLYE MARSHALL Hospitalization Condition: Fair Hospital course: patient is 48 YO Female with Bipolar, Schizoaffective Disorder, Asthma, Hypothyroidism, ANUP, Diastolic CHF, HLD, [place] Palsy, Paroxysmal Atrial Fib, DVT on therapeutic anticoagulation with Xarelto, IBS, Gastritis, presents to ED for evaluation. Patient presented with acute onset of slurred speech, facial weakness which lasted for over 2 hours and right arm and leg weakness that lasted approximately 20 minutes. She was seen and evaluated in ED. A code stroke was called upon arrival. She was evaluated in ED and found to have symptoms consistent with possible Acute CVA. Pt admitted to telemetry. Teleneurology consulted in ED, and patient deemed not a candidate for TPA. She was admitted, evaluated by neurologist. MRI was negative for acute stroke. She was diagnosed with TIA subsequently discharged home on 02/13/2019. Total time spent on discharge ,32 mins Disposition: [id number] HOME UNDER HOME HLTH - Discharge Diagnoses (1) TIA (transient ischemic attack) Status: Acute (2) Atrial fibrillation Status: Acute Qualifiers: Atrial fibrillation type: paroxysmal Qualified Code(s): I48.0 - Paroxysmal atrial fibrillation (3) Bipolar disorder Status: Acute Qualifiers: Active/Remission status: in full remission (4) Diabetes Status: Acute (5) Hypothyroidism Status: Acute Qualifiers: Hypothyroidism type: acquired Qualified Code(s): E03.9 - Hypothyroidism, unspecified (6) HLD (hyperlipidemia) Status: Chronic Qualifiers: Hyperlipidemia type: unspecified Qualified Code(s): E78.5 - Hyperlipidemia, unspecified (7) HTN (hypertension) Status: Chronic Qualifiers: Hypertension type: essential hypertension Qualified Code(s): I10 - Essential (primary) hypertension (8) Hypothyroidism (acquired) Status: Chronic (9) Schizoaffective disorder Status: Chronic Qualifiers: Schizoaffective disorder type: unspecified Qualified Code(s): F25.9 - Schizoaffective disorder, unspecified Core Measure Documentation - Palliative Care Palliative Care/ Comfort Measures: Not Applicable - Core Measures Any of the following diagnoses?: none Exam - Constitutional Vitals: Temp Pulse Resp BP Pulse Ox 97.7 F 60 18 111/62 93 02/13/19 07:55 02/13/19 10:03 02/13/19 07:55 02/13/19 10:03 02/13/19 04:01 General appearance: Present: no acute distress - Neck Neck: Present: supple - Respiratory Respiratory effort: normal Respiratory: bilateral: CTA - Extremities Extremities: no ischemia, No edema - Abdominal General gastrointestinal: Present: soft, non-tender, non-distended, normal bowel sounds Plan Activity: advance as tolerated Diet: low fat, low cholesterol, low salt, diabetic Durable Medical Equipment Needed Upon Discharge: Walker-Rolling Additional Instructions: 1.Follow up with PCP or [facility] in 1 week. 2.Follow up with Neurologist of choice or Dr. Gigi Butt, Neurology in 1 week. 3.Recheck BMP in 1 week to monitor Potassium level. Follow up with: LESLYE MARSHALL MD [Primary Care Provider] - 7 Days Prescriptions: AtorvaSTATin [Lipitor] 40 mg PO QHS #30 tablet
--- NOTE | 2019-02-13 17:00 | Progress Note ---
Assessment and Plan Ms. Pardo and is a 48-year-old female with history of hypertension, schizoaffective disorder, bipolar depression and atrial fibrillation who came weight right hemiparesis and left facial numbness. Workup including CT scan and MRI did not show any abnormality. Patient also had similar symptoms a few months ago for which she was admitted and the symptoms as reported by the patient is exactly the same right hemiparesis which is mild and numbness and weakness of the left side of the face. Workup at that point was also negative. Lab diagnosed for any hyperlipidemia heart LDL, HDL triglycerides were within normal limits and she is taking Lipitor. Physical examination. Gen. In no acute distress patient is alert and appropriate and has insight into her problems and answers questions appropriately she had a depressed affect and she cried during core conversation. She elaborated some ongoing psychosocial issues that she has difficulty taking decisions. Patient also stated that she feels weak and she was told that clonazepam 1 mg 3 times a day and gabapentin 3 times a day was a contributing factor to her lethargy. Heart normal rate and rhythm. Carotids were palpable no bruit. Cranial nerves are within normal limits. Procedure right sensation on the left side of the face was equal to the right side of the face there is no significant left facial weakness. Motor. Very mild weakness on the right upper and lower extremities with increased reflexes on the right side with downgoing on the right. Sensory. Sensory examination was grossly within normal limit. Coordination. Coordination WITHIN NORMAL LIMITS. IMPRESSION. #1 AND DOES NOT SEEM TO HAVE SQUARE WITH NORMAL WORKUP AND MEDICAL CONDITIONS WITH SIMILAR CLINICAL FINDINGS.. 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 PATIENT ALSO HAS OBSTRUCTIVE SLEEP APNEA WHICH IS A INDEPENDENT RISK FACTOR FOR STROKE AND ALSO MAKES DEPRESSION AND BIPOLAR DISORDER MUCH WORSE RECOMMENDATION. #1 PATIENT SHOULD CONTINUE XARELTO FOR HER ATRIAL FIBRILLATION. #2 patient should follow up with her psychiatrist and get counseling for her intra patient followed psychic conflict. #3 patient talk to her psychiatrist to reduce clonazepam 21 mg twice a day and to take the open chain as needed for pain not #4 patient should be given a CPAP machine pressure set at the range from 6-16 cm of water for her sleep apnea. #5 From a neurological standpoint patient can be discharged home without any problem. Objective - Vital Sign Vital Signs - 12hr 02/13/19 02/13/19 02/13/19 07:55 10:00 10:03 Temperature 97.7 F Pulse Rate 61 60 Respiratory 18 Rate Blood Pressure 111/62 111/62 111/62 - Laboratory Findings CBC and BMP: 02/11/19 14:20 02/11/19 14:20 Abnormal Lab Findings: Abnormal Labs 02/11/19 14:20 PT 18.1 H INR 1.54 H APTT 40.4 H
== END 2019-02-13 18:45 | disposition home health service (06) | DRG 69 ==
LOC: ED 14:01 → 4A 16:12
PROVIDERS: ADMIT Internal Medicine; ATTEND Internal Medicine
PROC: 3E0234Z Introduction of Serum, Toxoid and Vaccine into Muscle, Percutaneous Approach (ICD-10-PCS; principal; 2019-02-12)
DX: G45.9 Transient cerebral ischemic attack, unspecified (principal); I50.32 Chronic diastolic (congestive) heart failure; G81.91 Hemiplegia, unspecified affecting right dominant side; I11.0 Hypertensive heart disease with heart failure; F25.9 Schizoaffective disorder, unspecified; J45.909 Unspecified asthma, uncomplicated; E03.9 Hypothyroidism, unspecified; G47.33 Obstructive sleep apnea (adult) (pediatric); I48.0 Paroxysmal atrial fibrillation; G89.29 Other chronic pain; M54.9 Dorsalgia, unspecified; Z86.718 Personal history of other venous thrombosis and embolism; Z79.01 Long term (current) use of anticoagulants; Z90.49 Acquired absence of other specified parts of digestive tract; Z82.49 Family history of ischemic heart disease and other diseases of the circulatory system; Z88.6 Allergy status to analgesic agent; Z88.0 Allergy status to penicillin; Z88.2 Allergy status to sulfonamides; Z91.040 Latex allergy status; Z88.5 Allergy status to narcotic agent; Z91.018 Allergy to other foods; Z79.899 Other long term (current) drug therapy; Z23 Encounter for immunization
CPT/HCPCS: 36415; 70450; 70496; 70498; 70544; 70551; 80048; 80061; 82962; 84443; 84484; 85025; 85610; 85670; 85730; 87116; 90732; 93005; 93010; G0378; A9270-GY; J2405; Q9967

== ENCOUNTER 2019-02-19 08:23 | Inpatient (IN) | payer MEDICARE ==
[2019-02-19 09:01] LABS: Basophils # (Auto) 0.1 K/mm3 (0.0-0.1); Basophils % (Auto) 0.9 % (0.0-1.8); Eosinophils # (Auto) 0.3 K/mm3 (0.0-0.4); Hematocrit 39.6 % (30.3-42.9); Hemoglobin 12.7 gm/dl (10.1-14.3); Lymphocytes # (Auto) 1.4 K/mm3 (1.2-5.4); Lymphocytes % (Auto) 20.7 % (13.4-35.0); Mean Corpuscular HGB Conc 32 % (30-34); Mean Corpuscular Volume 83 fl (79-97); Monocytes # (Auto) 0.4 K/mm3 (0.0-0.8); Monocytes % (Auto) 5.6 % (0.0-7.3); Platelet Count 231 K/mm3 (140-440); Red Blood Count 4.75 M/mm3 (3.65-5.03)
--- NOTE | 2019-02-19 09:14 | Cat Scan Report ---
CT HEAD WITHOUT CONTRAST HISTORY: Code stroke COMPARISON: 02/01/2019 TECHNIQUE: CT images of the head were obtained without contrast. CONTRAST: None. FINDINGS: Cerebral and Cerebellar Hemispheres: No evidence of mass or mass effect. No midline shift. No acute hemorrhage. Subtle asymmetric hypodensity in the right basal ganglia is new compared to the previou s exam. No extra-axial fluid collection. Ventricles: Normal in size and configuration for age. Osseous Structures: No significant abnormality. Visualized Paranasal Sinuses: No significant abnormality. Additional Findings: None IMPRESSION: Asymmetric right basal ganglia hypodensity suggesting a possible nonhemorrhagic acute infarct. I discussed the findings with Dr. Reid in the emergency department on 02/19/2019 at 9:06 AM. CODE STROKE ALERT Signer Name: Feliz Kay MD Signed: 02/19/2019 9:09 AM Workstation Name: [id number]
[2019-02-19 09:16] LABS: BUN/Creatinine Ratio 16; Blood Urea Nitrogen 13 mg/dL (7-17); Hemolysis Index 18
--- NOTE | 2019-02-19 09:19 | Emergency Department Report ---
HPI - General Chief Complaint: Neuro Symptoms/Deficit Time Seen by Provider: 02/19/19 08:42 - HPI HPI: 48-year-old female presents to the emergency department with the complaint of waking up this morning, about 1 hour prior to arrival, with a left- sided posterior headache. She also noticed a small broken blood vessel in the left eye. She complains of some left-sided facial droop noted. She denies any numbness, paresthesias, extremity weakness. She did not take anything for her symptoms prior to arrival. She has a past medical history of asthma, CHF, DVT, diabetes, hypertension, hypothyroidism, hyperlipidemia, bipolar disorder, schiz oaffective. No recent travel or sick contacts at home. The patient is currently on Xarelto for anticoagulation. ED Past Medical Hx - Past Medical History Previous Medical History?: Yes Hx Hypertension: Yes Hx Congestive Heart Failure: Yes Hx Diabetes: Yes Hx Deep Vein Thrombosis: Yes Hx Psychiatric Treatment: Yes (Bipolar Depressed schizo affective) Hx Asthma: Yes Hx COPD: No Additional medical history: Hypothyroidism, sleep apnea, DVT, Chronic Back pain, Gastritis, IBS. Hyperlipidemia, Ovarian cyst. Stubbs's palsey - Surgical History Past Surgical History?: Yes Hx Cholecystectomy: Yes Additional Surgical History: Tonsilectomy, Uterine Ablation, Hernia repair, D&C. 2 molar pulled. stiched to nasal cavity. Right Rotator cuff repair. - Social History Smoking Status: Never Smoker Substance Use Type: None - Medications Home Medications: Home Medications Medication Instructions Recorded Confirmed Last Taken Type Nitroglycerin [Nitrostat] 0.4 mg SL Q5MIN PRN MDD 3 12/20/18 02/19/19 02/18/19 History Rivaroxaban [Xarelto] 10 mg PO DAILY 12/20/18 02/19/19 02/19/19 History Spironolactone [Aldactone] 25 mg PO DAILY 12/20/18 02/19/19 02/19/19 History ALBUTEROL Inhaler (OR & NICU) 2 puff IH Q4-6H PRN 02/01/19 02/19/19 02/15/19 History [ProAir HFA Inhaler] ARIPiprazole [Abilify] 30 mg PO DAILY 02/01/19 02/19/19 02/19/19 History Carvedilol [Coreg] 6.25 mg PO BID 02/01/19 02/19/19 02/18/19 History Levothyroxine [Synthroid] 125 mcg PO DAILY 02/01/19 02/19/19 02/19/19 History OLANzapine [ZyPREXA] 5 mg PO DAILY 02/01/19 02/19/19 02/18/19 History Pantoprazole [Protonix TAB] 40 mg PO DAILY 02/01/19 02/19/19 02/19/19 History Potassium Chloride [K-Dur] 40 meq PO TID 02/01/19 02/19/19 02/19/19 History Sucralfate [Carafate] 1 gm PO QID 02/01/19 02/19/19 02/18/19 History clonazePAM [Klonopin] 1 mg PO TID 02/01/19 02/19/19 02/19/19 History Fluticasone Propionate [Flovent 2 puff IH DAILY 02/19/19 02/19/19 02/19/19 History Hfa] Fluticasone [Flonase] 1 spray NS QDAY 02/19/19 02/19/19 02/19/19 History ED Review of Systems ROS: Stated complaint: HEADACHE Other details as noted in HPI Comment: All other systems reviewed and negative Constitutional: denies: chills, fever Eyes: eye pain. denies: vision change ENT: denies: ear pain, throat pain Respiratory: denies: cough, shortness of breath Cardiovascular: denies: chest pain, palpitations Gastrointestinal: denies: abdominal pain, vomiting Genitourinary: denies: dysuria, discharge Musculoskeletal: denies: back pain, arthralgia Skin: denies: rash, lesions Neurological: headache. denies: numbness, paresthesias, confusion Physical Exam - Physical Exam Vital Signs: Vital Signs 02/19/19 08:36 Temperature 98.1 F Pulse Rate 58 L Respiratory 20 Rate Blood Pressure 104/61 O2 Sat by Pulse 97 Oximetry Physical Exam: GENERAL: The patient is well-developed well-nourished. HENT: Normocephalic. Atraumatic. Patient has moist mucous membranes. EYES: Extraocular motions are intact. Pupils equal reactive to light bilaterally. There is a small left-sided subconjunctival hemorrhage. NECK: Supple. Trachea is midline. CHEST/LUNGS: Clear to auscultation. There is no respiratory distress noted. HEART/CARDIOVASCULAR: Regular. There is no tachycardia. There is no murmur. ABDOMEN: Abdomen is soft, nontender. Patient has normal bowel sounds. There is no abdominal distention. SKIN: Skin is warm and dry. NEURO: The patient is awake, alert, and oriented. The patient is cooperative. Mild left-sided nasolabial for paresis. The patient has normal speech. Cranial nerves II through XII grossly intact. Mild bilateral upper extremity drift. MUSCULOSKELETAL: There is no tenderness or deformity. There is no limitation range of motion. There is no evidence of acute injury. ED Course Vital Signs 02/19/19 08:36 Temperature 98.1 F Pulse Rate 58 L Respiratory 20 Rate Blood Pressure 104/61 O2 Sat by Pulse 97 Oximetry - Consultations Consultation #1: 02/19/19 14:53 The patient was seen by the telemedicine neurologist, Dr. Grady, immediately upon her return from the CT scan. He did an evaluation and did not feel that the patient was a TPA candidate secondary to the fact that she is already on anticoagulation and that her symptoms may be related to other conditions such as a complex migraine. However he did recommend CT angiography imaging of the head and neck and admission to the hospital for MRI and further stroke workup. ED Medical Decision Making - Lab Data Result diagrams: 02/19/19 08:52 02/19/19 08:52 - EKG Data -: EKG Interpreted by Nh EKG shows normal: sinus rhythm (PACs), axis (left axis deviation), intervals (prolonged QT), QRS complexes (Q waves to the anterior leads, LVH), ST-T waves Rate: bradycardia (44 bpm) - EKG Data When compared to previous EKG there are: no significant change Interpretation: unchanged when compared t (02/02/19) - Radiology Data Radiology results: report reviewed CT HEAD WITHOUT CONTRAST HISTORY: Code stroke COMPARISON: 02/01/2019 TECHNIQUE: CT images of the head were obtained without contrast. CONTRAST: None. FINDINGS: Cerebral and Cerebellar Hemispheres: No evidence of mass or mass effect. No midline shift. No acute hemorrhage. Subtle asymmetric hypodensity in the right basal ganglia is new compared to the previous exam. No extra-axial fluid collection. Ventricles: Normal in size and configuration for age. Osseous Structures: No significant abnormality. Visualized Paranasal Sinuses: No significant abnormality. Additional Findings: None IMPRESSION: Asymmetric right basal ganglia hypodensity suggesting a possible nonhemorrhagic acute infarct. CTA head with intravenous contrast CLINICAL HISTORY: CVA and left eye pain. Patient with history of hypertension and diabetes. TECHNIQUE: 0.625 mm thick contiguous axial scans were obtained from the skull base to the skull vertex during rapid bolus administration of intravenous contrast material. Multiplanar reconstructions were produced in the coronal and sagittal planes. In addition 3 plane MIP instructions were produced and reviewed for this report. The axial source images and reconstructed images were reviewed for this report. All CT scans at this location are performed using CT dose reduction for ALARA by means of automated exposure control. FINDINGS: Contrast density within the intracranial arterial circulation is relatively decreased. This may reflect an issue with timing of the contrast bolus versus scan acquisition. The caliber of the intracranial vessels is normal throughout. There is no indication of intracranial stenosis or large vessel occlusion. There is no indication of vasculitis. There is no evidence of aneurysm or other vascular malformation. There is an unusual configuration of the anterior cerebral arteries. There is a short A1 segment on the right with proximal bifurcation into the A2 segments of the anterior cerebral arteries. 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 This represents an anatomical variation rather than a pathological finding. IMPRESSION: No significant abnormality on CTA head.. CTA NECK WITH CONTRAST HISTORY: Code stroke, stroke symptoms for less than 6 hours, hypertension, diabetes COMPARISON: None. TECHNIQUE: Routine CTA of the neck is performed. 3-D/MIP reformats were postprocessed. All CT scans at this location are performed using CT dose reduction for ALARA by means of automated exposure control. Percentage stenosis is determined by direct quantitative measurements of diseased internal carotid artery diameter compared with normal distal internal carotid artery reference segments or by criteria similar to NASCET where applicable. CONTRAST: 100 ml of Isovue 370 FINDINGS: Aortic arch: No significant abnormality. Cervical vertebral arteries: No significant abnormality. Common carotid arteries: No significant abnormality. Cervical internal carotid arteries: No significant abnormality. Additional findings: None. IMPRESSION: No significant abnormality. Normal CTA neck. - Medical Decision Making This patient presents to the emergency department with a complaint of a left posterior headache, some facial droop, left eye pain. On examination she has mi ld bilateral upper extremity drift that is very subtle and she has a mild left facial droop or nasolabial fold paresis. CT scan of the head did not show any acute hemorrhage but was read by radiology as concern for a hypodense area in the right basal ganglia concerning for CVA. CT angiography of the head and neck were unremarkable and did not show any thrombus, significant stenosis or occlusion. The patient's labs were mostly unremarkable. EKG is unchanged from previous and did not show any morphology consistent with ST elevation RI. Her vital signs and stable throughout her ED course. The patient will be admitted to the hospital for further evaluation and treatment was accepted for admission by the hospitalist, Dr. Nagy. - Differential Diagnosis CVA, TIA, complex migraine, hypoglycemia Critical Care Time: Yes Critical care time in (mins) excluding proc time.: 35 Critical care attestation.: If time is entered above; I have spent that time in minutes in the direct care of this critically ill patient, excluding procedure time. Critical care time was spent on this patient during her initial evaluation, multiple re- evaluations, ordering and interpretation of labs and imaging, consultation with the neurologist. Critical Care Time: 35 minutes ED Disposition Clinical Impression: Acute CVA (cerebrovascular accident) Headache Qualifiers: Headache type: unspecified Headache chronicity pattern: unspecified pattern Intractability: not intractable Qualified Code(s): R51 - Headache CVA (cerebral vascular accident) Qualifiers: CVA mechanism: unspecified Qualified Code(s): I63.9 - Cerebral infarction, unsp ecified Disposition: DC-09 OP ADMIT IP TO THIS HOSP Is pt being admited?: Yes Condition: Serious Time of Disposition: 12:11
[2019-02-19 09:35] LABS: INR 1.37 (0.87-1.13)
[2019-02-19 09:36] LABS: Partial Thromboplastin Time 34.5 Sec. (24.2-36.6); Thrombin Time 16.1 Sec. (15.1-19.6)
--- NOTE | 2019-02-19 10:21 | Emergency Department Report ---
ED Neuro Deficit HPI - General Chief Complaint: Neuro Symptoms/Deficit Stated Complaint: HEADACHE Time Seen by Provider: 02/19/19 08:42 Source: patient Mode of arrival: Ambulatory Limitations: No Limitations - History of Present Illness Initial Comments: [facility] TeleStroke Metrics: LKW: Last night Door Time: 0823 [facility] Contacted: 0844 [facility] at Bedside: 0848 NIHSS: [id number] Decision on Alteplase: Not to give as the patient's last known well time was last night, and she is currently on Xarelto and took a dose this morning. Interventional Candidate: Not a candidate as her symptoms are not consistent with a large vessel proximal occlusion. Chief Complaint: Chest pain, left-sided headache, and left eye pain HPI: Asked to see this patient in telemedicine consultation. Consultation was performed with assistance of ancillary / medical staff at bedside. Verbal consent to perform the examination with telemedicine was obtained. Aleisha philip agreed to proceed with the consultation. 48-year-old left-handed white female who comes to the ER this morning for evaluation of severe left-sided headaches, left eye pain, and chest pain. Patient is currently on Xarelto for a history of left arm and leg DVT. She does report a prior history of migraines a long time ago. She denies any history of stroke or UT. Patient confirms she did take a dose of Xarelto this morning. Patient states that she went to bed last night at her baseline neurologically. She does not remember what time she went to bed last night. She did have significant chest pain last night, and took 3 nitro pills prior to going to bed. She then maybe woke up around 7 AM, and had a severe 8/10 left-sided headache. She has some photophobia but no nausea. She describes a warm sensation. She also describes left eye pain, and is concerned about blood in her left eye. She currently reports that her chest pain is gone. Patient states that her current left-sided headaches are different from her typical migraines. PMH: History of left upper extremity and lower extremity DVT currently on Xarelto; hypertension; hyperlipidemia; and diabetes mellitus; remote history of migraine headaches. SOC: Negative x3. Patient lives with her caregiver. FMH: Uncle with a stroke before. Mother from a PE. Brother also with a PE. ROS: 13 point review of systems were reviewed with the patient, and are all negative with the exception of the aforementioned in the history of present illness. VS: Temperature is 98.1 F, pulse 54, oxygen saturation 96%, systolic blood pressure was 104 Exam: Patient is in no apparent distress. Patient appears as stated age. No ob vious acute respiratory or cardiac distress. Patient is well groomed and well- nourished. 1a- LOC: Keenly responsive - 0 1b- LOC questions: Answers both questions correctly - 0 1c- LOC commands- Performs both tasks correctly- 0 2- Gaze: Normal; no gaze paresis or gaze deviation - 0 3- Visual Ovalle: normal, no Visual field deficit - 0 4- Facial movements: no facial palsy - 0 5- Upper limb motor bilateral arm drifts - 2 6- Lower limb motor - no drift - 0 7- Limb Coordination: absent ataxia - 0 8- Sensory: no sensory loss - 0 9- Language - No aphasia - 0 10- Speech - No dysarthria -0 11- Neglect / Extinction - none found - 0 NIHSS score: 2 Diagnostic Data: Blood glucose 97 CT of the head reportedly showed no acute intracranial hemorrhage; there was noted to be a possible right basal ganglia hypodensity. Medical Data Reviewed: 1.Data?reviewed include clinical labs, radiology,?and medical tests; 2.Tests?results discussed w/performing or interpreting physician; 3.Obtaining/reviewing old medical records; 4.Obtaining?case history from another source; 5.Independent?review of image, tracing, or specimen. Medical Decision Making: - Extensive number of diagnosis or management options are considered below. - Extensive amount of complex data reviewed. - High risk of complication and/or morbidity or mortality are associated with differential diagnostic considerations below. - There may be?uncertain?outcome and increased probability of prolonged functional impairment or high probability of severe prolonged functional impairment associated with some of these differential diagnosis. Differential Diagnosis for Stroke: 1.?Cardioembolic?stroke 2. Small vessel disease/lacune 3. Thromboembolic, [id number] mechanism 4.?Hypercoagulable?state-related infarct 5. Transient ischemic attack 6. Thrombotic mechanism, large artery disease Assessment: 1. Left-sided headaches and left eye pain 2. Chest pain 3. History of DVT on Xarelto 4. Hypertension 5. Hyperlipidemia 6. Diabetes mellitus 7. Abnormal head CT with possible right basal ganglia stroke Recommendations: Will defer chest pain work-up to the ER team. We will also defer further work-up of her left eye pain to the ER team. He reports that they do not have ophthalmology services. Patient will need to be ruled out for left eye glaucoma or left retinal detachment given she is on Xarelto. If the patient is admitted to the hospital, she would benefit from a formal MRI brain with and without contrast to rule out any acute intracranial process. Also reasonable to check a CTA of the head and neck to better evaluate her intracranial and extracranial blood vessels. Can continue her Xarelto for now. Continue supportive care. Thank you for allowing [facility] to participate in the care of your patient. Please call me, Dr. Lagos, with any questions at [phone]. Case discussed with the ER staff and ER attending. Critical Care notation: I was called to see this critical patient emergently. I personally evaluated this critical patient for acute stroke evaluation, and determining their eligibility for IV Alteplase and interventional therapies. I have spent approximately 8 minutes with the patient, including time at bedside, time discussing the case with other physicians, reviewing plan of care, and time independently reviewing the records and scans. - Related Data Home Medications: Home Medications Medication Instructions Recorded Confirmed Last Taken Nitroglycerin [Nitrostat] 0.4 mg SL Q5MIN PRN MDD 3 12/20/18 02/12/19 12/26/18 22:00 Rivaroxaban [Xarelto] 10 mg PO DAILY 12/20/18 02/12/19 12/26/18 09:00 Spironolactone [Aldactone] 25 mg PO DAILY 12/20/18 02/12/19 12/26/18 09:00 ALBUTEROL Inhaler (OR & NICU) 2 puff IH Q4-6H PRN 02/01/19 02/12/19 Unknown [ProAir HFA Inhaler] ARIPiprazole [Abilify] 30 mg PO DAILY 02/01/19 02/12/19 Unknown Carvedilol [Coreg] 6.25 mg PO BID 02/01/19 02/12/19 Unknown Gabapentin [Neurontin] 100 mg PO TID 02/01/19 02/12/19 Unknown Levothyroxine [Synthroid] 125 mcg PO DAILY 02/01/19 02/12/19 Unknown OLANzapine [ZyPREXA] 5 mg PO DAILY 02/01/19 02/12/19 Unknown Pantoprazole [Protonix TAB] 40 mg PO DAILY 02/01/19 02/12/19 Unknown Potassium Chloride [K-Dur] 40 meq PO TID 02/01/19 02/12/19 Unknown Sucralfate [Carafate] 1 gm PO QID 02/01/19 02/12/19 Unknown Zolpidem [Ambien] 10 mg PO QHS 02/01/19 02/12/19 Unknown clonazePAM [Klonopin] 1 mg PO TID 02/01/19 02/12/19 Unknown levoFLOXacin [Levaquin TAB] 500 mg PO DAILY 02/01/19 02/12/19 Unknown traMADol [Ultram 50 MG tab] 50 mg PO BID PRN 02/01/19 02/12/19 Unknown Previous Rx's Medication Instructions Recorded Last Taken Type AtorvaSTATin [Lipitor] 40 mg PO QHS #30 tablet 02/13/19 Unknown Rx Allergies/Adverse Reactions: Allergies Allergy/AdvReac Type Severity Reaction Status Date / Time acetaminophen [From Lortab] Allergy Shortness Verified 02/12/19 14:14 of Breath aspirin Allergy Hives Verified 02/12/19 14:14 divalproex sodium Allergy Rash Verified 12/27/18 01:28 [From Depakote] hydrocodone [From Lortab] Allergy Hives Verified 02/12/19 14:14 latex Allergy Rash Verified 02/12/19 14:14 nut - unspecified Allergy Shortness Verified 02/12/19 14:14 of Breath oxycodone Allergy Hives Verified 02/12/19 14:14 Penicillins Allergy Rash Verified 12/26/18 18:35 propoxyphene Allergy Rash Verified 12/26/18 18:35 [From Darvocet-N] Sulfa (Sulfonamide Allergy Rash Verified 12/26/18 18:35 Antibiotics) dairy Allergy Diarrhea Uncoded 02/12/19 14:15 napsylate Allergy Hives Uncoded 02/12/19 14:14 ED Review of Systems ROS: Stated complaint: HEADACHE Other details as noted in HPI Constitutional: denies: chills, fever Eyes: eye pain. denies: vision change ENT: denies: ear pain, throat pain Respiratory: denies: cough, shortness of breath Cardiovascular: denies: chest pain, palpitations Gastrointestinal: denies: abdominal pain, vomiting Genitourinary: denies: dysuria, discharge Musculoskeletal: denies: back pain, arthralgia Skin: denies: rash, lesions Neurological: headache. denies: numbness, paresthesias, confusion ED Past Medical Hx - Past Medical History Previous Medical History?: Yes Hx Hypertension: Yes Hx Congestive Heart Failure: Yes Hx Diabetes: Yes Hx Deep Vein Thrombosis: Yes Hx Psychiatric Treatment: Yes (Bipolar Depressed schizo affective) Hx Asthma: Yes Hx COPD: No Additional medical history: Hypothyroidism, sleep apnea, DVT, Chronic Back pain, Gastritis, IBS. Hyperlipidemia, Ovarian cyst. Stubbs's palsey - Surgical History Past Surgical History?: Yes Hx Cholecystectomy: Yes Additional Surgical History: Tonsilectomy, Uterine Ablation, Hernia repair, D&C. 2 molar pulled. stiched to nasal cavity. Right Rotator cuff repair. - Social History Smoking Status: Never Smoker Substance Use Type: None - Medications Home Medications: Home Medications Medication Instructions Recorded Confirmed Last Taken Type Nitroglycerin [Nitrostat] 0.4 mg SL Q5MIN PRN MDD 3 12/20/18 02/12/19 12/26/18 22:00 History Rivaroxaban [Xarelto] 10 mg PO DAILY 12/20/18 02/12/19 12/26/18 09:00 History Spironolactone [Aldactone] 25 mg PO DAILY 12/20/18 02/12/19 12/26/18 09:00 History ALBUTEROL Inhaler (OR & NICU) 2 puff IH Q4-6H PRN 02/01/19 02/12/19 Unknown History [ProAir HFA Inhaler] ARIPiprazole [Abilify] 30 mg PO DAILY 02/01/19 02/12/19 Unknown History Carvedilol [Coreg] 6.25 mg PO BID 02/01/19 02/12/19 Unknown History Gabapentin [Neurontin] 100 mg PO TID 02/01/19 02/12/19 Unknown History Levothyroxine [Synthroid] 125 mcg PO DAILY 02/01/19 02/12/19 Unknown History OLANzapine [ZyPREXA] 5 mg PO DAILY 02/01/19 02/12/19 Unknown History Pantoprazole [Protonix TAB] 40 mg PO DAILY 02/01/19 02/12/19 Unknown History Potassium Chloride [K-Dur] 40 meq PO TID 02/01/19 02/12/19 Unknown History Sucralfate [Carafate] 1 gm PO QID 02/01/19 02/12/19 Unknown History Zolpidem [Ambien] 10 mg PO QHS 02/01/19 02/12/19 Unknown History clonazePAM [Klonopin] 1 mg PO TID 02/01/19 02/12/19 Unknown History levoFLOXacin [Levaquin TAB] 500 mg PO DAILY 02/01/19 02/12/19 Unknown History traMADol [Ultram 50 MG tab] 50 mg PO BID PRN 02/01/19 02/12/19 Unknown History AtorvaSTATin [Lipitor] 40 mg PO QHS #30 tablet 02/13/19 Unknown Rx ED Neuro Physical Exam - General Limitations: No Limitations Suspected Stroke: No ED Course Vital Signs 02/19/19 02/19/19 02/19/19 08:36 08:56 09:16 Temperature 98.1 F Pulse Rate 58 L 50 L Respiratory 20 14 Rate Blood Pressure 104/61 95/65 O2 Sat by Pulse 97 98 98 Oximetry - Lab Data Result diagrams: 02/19/19 08:52 02/19/19 08:52 Lab Results 02/19/19 02/19/19 02/19/19 Range/Units 08:52 08:52 08:52 WBC 6.7 (4.5-11.0) K/mm3 RBC 4.75 (3.65-5.03) M/mm3 Hgb 12.7 (10.1-14.3) gm/dl Hct 39.6 (30.3-42.9) % MCV 83 (79-97) fl MCH 27 L (28-32) pg MCHC 32 (30-34) % RDW 15.0 (13.2-15.2) % Plt Count 231 (140-440) K/mm3 Lymph % (Auto) 20.7 (13.4-35.0) % Bates % (Auto) 5.6 (0.0-7.3) % Eos % (Auto) 4.0 (0.0-4.3) % Baso % (Auto) 0.9 (0.0-1.8) % Lymph # 1.4 (1.2-5.4) K/mm3 Bates # 0.4 (0.0-0.8) K/mm3 Eos # 0.3 (0.0-0.4) K/mm3 Baso # 0.1 (0.0-0.1) K/mm3 Seg Neutrophils % 68.8 (40.0-70.0) % Seg Neutrophils # 4.6 (1.8-7.7) K/mm3 PT 16.5 H (12.2-14.9) Sec. INR 1.37 H (0.87-1.13) APTT 34.5 (24.2-36.6) Sec. Thrombin Time 16.1 (15.1-19.6) Sec. Sodium 138 (137-145) mmol/L Potassium 4.0 (3.6-5.0) mmol/L Chloride 102.3 (98-107) mmol/L Carbon Dioxide 27 (22-30) mmol/L Anion Gap 13 mmol/L BUN 13 (7-17) mg/dL Creatinine 0.8 (0.7-1.2) mg/dL Estimated GFR > 60 ml/min BUN/Creatinine Ratio 16 % Glucose 105 H (65-100) mg/dL POC Glucose (70-105) Calcium 9.0 (8.4-10.2) mg/dL Troponin T < 0.010 (0.00-0.029) ng/mL 02/19/19 Range/Units 08:59 WBC (4.5-11.0) K/mm3 RBC (3.65-5.03) M/mm3 Hgb (10.1-14.3) gm/dl Hct (30.3-42.9) % MCV (79-97) fl MCH (28-32) pg MCHC (30-34) % RDW (13.2-15.2) % Plt Count (140-440) K/mm3 Lymph % (Auto) (13.4-35.0) % Bates % (Auto) (0.0-7.3) % Eos % (Auto) (0.0-4.3) % Baso % (Auto) (0.0-1.8) % Lymph # (1.2-5.4) K/mm3 Bates # (0.0-0.8) K/mm3 Eos # (0.0-0.4) K/mm3 Baso # (0.0-0.1) K/mm3 Seg Neutrophils % (40.0-70.0) % Seg Neutrophils # (1.8-7.7) K/mm3 PT (12.2-14.9) Sec. INR (0.87-1.13) APTT (24.2-36.6) Sec. Thrombin Time (15.1-19.6) Sec. Sodium (137-145) mmol/L Potassium (3.6-5.0) mmol/L Chloride (98-107) mmol/L Carbon Dioxide (22-30) mmol/L Anion Gap mmol/L BUN (7-17) mg/dL Creatinine (0.7-1.2) mg/dL Estimated GFR ml/min BUN/Creatinine Ratio % Glucose (65-100) mg/dL POC Glucose 97 (70-105) Calcium (8.4-10.2) mg/dL Troponin T (0.00-0.029) ng/mL Critical care attestation.: If time is entered above; I have spent that time in minutes in the direct care of this critically ill patient, excluding procedure time. ED Disposition Clinical Impression: Headache Disposition: DC-09 OP ADMIT IP TO THIS HOSP Is pt being admited?: Yes Does the pt Need Aspirin: No Condition: Stable Referrals: [facility]AL[facility] [Other] - 3-5 Days
--- NOTE | 2019-02-19 11:38 | Cat Scan Report ---
CTA NECK WITH CONTRAST HISTORY: Code stroke, stroke symptoms for less than 6 hours, hypertension, diabetes COMPARISON: None. TECHNIQUE: Routine CTA of the neck is performed. 3-D/MIP reformats were postprocessed. All CT scans a t this location are performed using CT dose reduction for ALARA by means of automated exposure contro l. Percentage stenosis is determined by direct quantitative measurements of diseased internal carotid artery diameter compared with normal distal internal carotid artery reference segments or by criteri a similar to NASCET where applicable. CONTRAST: 100 ml of Isovue 370 FINDINGS: Aortic arch: No significant abnormality. Cervical vertebral arteries: No significant abnormality. Common carotid arteries: No significant abnormality. Cervical internal carotid arteries: No significant abnormality. Additional findings: None. IMPRESSION: No significant abnormality. Normal CTA neck. Signer Name: Ananda Julio Jr, MD Signed: 02/19/2019 11:33 AM Workstation Name: [id number]
--- NOTE | 2019-02-19 11:59 | Cat Scan Report ---
CTA head with intravenous contrast CLINICAL HISTORY: CVA and left eye pain. Patient with history of hypertension and diabetes. TECHNIQUE: 0.625 mm thick contiguous axial scans were obtained from the skull base to the skull vertex during ra pid bolus administration of intravenous contrast material. Multiplanar reconstructions were produced in the coronal and sagittal planes. In addition 3 plane MIP instructions were produced and reviewed f or this report. The axial source images and reconstructed images were reviewed for this report. All CT scans at this location are performed using CT dose reduction for ALARA by means of automated e xposure control. FINDINGS: Contrast density within the intracranial arterial circulation is relatively decreased. This may refle ct an issue with timing of the contrast bolus versus scan acquisition. The caliber of the intracranial vessels is normal throughout. There is no indication of intracranial stenosis or large vessel occlusion. There is no indication of vasculitis. There is no evidence of aneurysm or other vascular malformation. There is an unusual configuration of the anterior cerebral arteries. There is a short A1 segment on t he right with proximal bifurcation into the A2 segments of the anterior cerebral arteries. 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 This represents an anatomical va riation rather than a pathological finding. IMPRESSION: No significant abnormality on CTA head.. CONTRAST DOSE REPORT: Information not provided. Signer Name: Shelton Rosenberg MD Signed: 02/19/2019 11:55 AM Workstation Name: [id number]
[2019-02-19] MEDS: DILAUDID IV PRN ×2 (15:08→18:27)
[2019-02-19] MEDS ORDERED: PROAIR IH PRN (20:34)
--- NOTE | 2019-02-19 20:34 | History and Physical Report ---
History of Present Illness Date of examination: 02/19/19 Date of admission: 02/19/19 12:11 Chief complaint: Left sided Headache and facial droop since AM History of present illness: 48-year-old female presents to the emergency department with the complaint of waking up this morning, about 1 hour prior to arrival, with a left- sided posterior headache. She also noticed a small broken blood vessel in the left eye. She complains of some left-sided facial droop noted. She denies any numbness, paresthesias, extremity weakness. She did not take anything for her symptoms prior to arrival. She has a past medical history of asthma, CHF, DVT, diabetes, hypertension, hypothyroidism, hyperlipidemia, bipolar disorder, schizoaffective. No recent travel or sick contacts at home. The patient is currently on Xarelto for anticoagulation. -Past Medical History Previous Medical History?: Yes Hypertension: Yes Congestive Heart Failure: Yes Diabetes: Yes Deep Vein Thrombosis: Yes Psychiatric Treatment: Yes (Bipolar Depressed schizo affective) Asthma: Yes Additional medical history: Hypothyroidism, sleep apnea, DVT, Chronic Back pain, Gastritis, IBS. Hyperlipidemia, Ovarian cyst. Stubbs's palsey Surgical History Past Surgical History?: Yes Cholecystectomy: Yes Additional Surgical History: Tonsilectomy, Uterine Ablation, Hernia repair, D&C. 2 molar pulled. stiched to nasal cavity. Right Rotator cuff repair. Social History Smoking Status: Never Smoker Substance Use Type: None Review of Systems ROS: Stated complaint: HEADACHE Other details as noted in HPI Comment: All other systems reviewed and negative Constitutional: denies: chills, fever Eyes: eye pain. denies: vision change ENT: denies: ear pain, throat pain Respiratory: denies: cough, shortness of breath Cardiovascular: denies: chest pain, palpitations Gastrointestinal: denies: abdominal pain, vomiting Genitourinary: denies: dysuria, discharge Musculoskeletal: denies: back pain, arthralgia Skin: denies: rash, lesions Neurological: headache. denies: numbness, paresthesias, confusion Medications and Allergies Allergies Allergy/AdvReac Type Severity Reaction Status Date / Time acetaminophen [From Lortab] Allergy Shortness Verified 02/12/19 14:14 of Breath aspirin Allergy Hives Verified 02/12/19 14:14 divalproex sodium Allergy Rash Verified 12/27/18 01:28 [From Depakote] hydrocodone [From Lortab] Allergy Hives Verified 02/12/19 14:14 latex Allergy Rash Verified 02/12/19 14:14 nut - unspecified Allergy Shortness Verified 02/12/19 14:14 of Breath oxycodone Allergy Hives Verified 02/12/19 14:14 Penicillins Allergy Rash Verified 12/26/18 18:35 propoxyphene Allergy Rash Verified 12/26/18 18:35 [From Darvocet-N] Sulfa (Sulfonamide Allergy Rash Verified 12/26/18 18:35 Antibiotics) dairy Allergy Diarrhea Uncoded 02/12/19 14:15 napsylate Allergy Hives Uncoded 02/12/19 14:14 Home Medications Medication Instructions Recorded Confirmed Last Taken Type Nitroglycerin [Nitrostat] 0.4 mg SL Q5MIN PRN MDD 3 12/20/18 02/19/19 02/18/19 History Rivaroxaban [Xarelto] 10 mg PO DAILY 12/20/18 02/19/19 02/19/19 History Spironolactone [Aldactone] 25 mg PO DAILY 12/20/18 02/19/19 02/19/19 History ALBUTEROL Inhaler (OR & NICU) 2 puff IH Q4-6H PRN 02/01/19 02/19/19 02/15/19 History [ProAir HFA Inhaler] ARIPiprazole [Abilify] 30 mg PO DAILY 02/01/19 02/19/19 02/19/19 History Carvedilol [Coreg] 6.25 mg PO BID 02/01/19 02/19/19 02/18/19 History Levothyroxine [Synthroid] 125 mcg PO DAILY 02/01/19 02/19/19 02/19/19 History OLANzapine [ZyPREXA] 5 mg PO DAILY 02/01/19 02/19/19 02/18/19 History Pantoprazole [Protonix TAB] 40 mg PO DAILY 02/01/19 02/19/19 02/19/19 History Potassium Chloride [K-Dur] 40 meq PO TID 02/01/19 02/19/19 02/19/19 History Sucralfate [Carafate] 1 gm PO QID 02/01/19 02/19/19 02/18/19 History clonazePAM [Klonopin] 1 mg PO TID 02/01/19 02/19/19 02/19/19 History Fluticasone Propionate [Flovent 2 puff IH DAILY 02/19/19 02/19/19 02/19/19 History Hfa] Fluticasone [Flonase] 1 spray NS QDAY 02/19/19 02/19/19 02/19/19 History Active Meds: Active Medications Hydromorphone HCl (Dilaudid) 0.5 mg IV Q4H PRN PRN Reason: Pain , Severe (7-10) Last Admin: 02/19/19 18:27 Dose: 0.5 mg Documented by: Exam - Constitutional Vitals: Temp Pulse Resp BP Pulse Ox 97.9 F 44 L 18 134/60 99 02/19/19 16:51 02/19/19 17:00 02/19/19 16:51 02/19/19 16:51 02/19/19 19:20 General appearance: Present: no acute distress, well-nourished - EENT Eyes: Present: PERRL ENT: hearing intact, clear oral mucosa, other (Lt facial palsy) - Neck Neck: Present: supple, normal ROM - Respiratory Respiratory effort: normal Respiratory: bilateral: CTA - Cardiovascular Heart rate: 78 Rhythm: regular Heart Sounds: Present: S1 & S2. Absent: rub, click - Extremities Extremities: no ischemia, pulses intact, pulses symmetrical, No edema Peripheral Pulses: within normal limits - Abdominal General gastrointestinal: Present: soft, non-tender, non-distended, normal bowel sounds Female genitourinary: Present: normal - Integumentary Integumentary: Present: clear, warm, dry - Musculoskeletal Musculoskeletal: gait normal, strength equal bilaterally - Psychiatric Psychiatric: appropriate mood/affect, intact judgment & insight - Neurologic Neurologic: CNII-XII intact, moves all extremities - Allied Health Allied health notes reviewed: nursing, case management Results - Labs CBC & Chem 7: 02/20/19 05:01 02/20/19 05:01 Labs: Laboratory Last Values WBC 6.7 K/mm3 (4.5-11.0) 02/19/19 08:52 RBC 4.75 M/mm3 (3.65-5.03) 02/19/19 08:52 Hgb 12.7 gm/dl (10.1-14.3) 02/19/19 08:52 Hct 39.6 % (30.3-42.9) 02/19/19 08:52 MCV 83 fl (79-97) 02/19/19 08:52 MCH 27 pg (28-32) L 02/19/19 08:52 MCHC 32 % (30-34) 02/19/19 08:52 RDW 15.0 % (13.2-15.2) 02/19/19 08:52 Plt Count 231 K/mm3 (140-440) 02/19/19 08:52 Lymph % (Auto) 20.7 % (13.4-35.0) 02/19/19 08:52 Benzie % (Auto) 5.6 % (0.0-7.3) 02/19/19 08:52 Eos % (Auto) 4.0 % (0.0-4.3) 02/19/19 08:52 Baso % (Auto) 0.9 % (0.0-1.8) 02/19/19 08:52 Lymph # 1.4 K/mm3 (1.2-5.4) 02/19/19 08:52 Benzie # 0.4 K/mm3 (0.0-0.8) 02/19/19 08:52 Eos # 0.3 K/mm3 (0.0-0.4) 02/19/19 08:52 Baso # 0.1 K/mm3 (0.0-0.1) 02/19/19 08:52 Seg Neutrophils % 68.8 % (40.0-70.0) 02/19/19 08:52 Seg Neutrophils # 4.6 K/mm3 (1.8-7.7) 02/19/19 08:52 PT 16.5 Sec. (12.2-14.9) H 02/19/19 08:52 INR 1.37 (0.87-1.13) H 02/19/19 08:52 APTT 34.5 Sec. (24.2-36.6) 02/19/19 08:52 16.1 Sec. (15.1-19.6) 02/19/19 08:52 Sodium 138 mmol/L (137-145) 02/19/19 08:52 Potassium 4.0 mmol/L (3.6-5.0) 02/19/19 08:52 Chloride 102.3 mmol/L (98-107) 02/19/19 08:52 Carbon Dioxide 27 mmol/L (22-30) 02/19/19 08:52 13 mmol/L 02/19/19 08:52 BUN 13 mg/dL (7-17) 02/19/19 08:52 0.8 mg/dL (0.7-1.2) 02/19/19 08:52 Estimated GFR > 60 ml/min 02/19/19 08:52 16 % 02/19/19 08:52 Glucose 105 mg/dL (65-100) H 02/19/19 08:52 POC Glucose 97 (70-105) 02/19/19 08:59 Calcium 9.0 mg/dL (8.4-10.2) 02/19/19 08:52 < 0.010 ng/mL (0.00-0.029) 02/19/19 08:52 Short CBC 02/19/19 02/20/19 Range/Units 08:52 05:01 WBC 6.7 7.5 (4.5-11.0) K/mm3 Hgb 12.7 11.7 (10.1-14.3) gm/dl Hct 39.6 36.4 (30.3-42.9) % Plt Count 231 205 (140-440) K/mm3 BMP 02/19/19 02/20/19 08:52 05:01 Sodium 138 142 Potassium 4.0 3.9 Chloride 102.3 103.3 Carbon Dioxide 27 28 BUN 13 13 Creatinine 0.8 0.8 Glucose 105 H 99 Calcium 9.0 8.8 Cardiac Enzymes 02/19/19 Range/Units 08:52 Troponin T < 0.010 (0.00-0.029) ng/mL Liver Function 02/20/19 Range/Units 05:01 Total Bilirubin 0.30 (0.1-1.2) mg/dL AST 13 (5-40) units/L ALT 13 (7-56) units/L Alkaline Phosphatase 90 (35-129) units/L Albumin 3.5 L (3.9-5) g/dL - Imaging and Cardiology EKG: report reviewed Imaging and Cardiology: CTA Head IMPRESSION: No significant abnormality on CTA head.. IMPRESSION: No significant abnormality. Normal CTA neck. Assessment and Plan Advance Directives: Yes (Full code) VTE prophylaxis?: Chemical Plan of care discussed with patient/family: Yes - Patient Problems (1) Migraine Current Visit: Yes Status: Acute Qualifiers: Intractability: intractable Plan to address problem: Complex migraine Triptans and Toradol IV CVA unlikely MRI brain as per Teleneurology (2) Bipolar disorder Current Visit: No Status: Chronic Qualifiers: Active/Remission status: in full remission Plan to address problem: COnt Ablify and Zyprexa (3) NASRA (generalized anxiety disorder) Current Visit: Yes Status: Chronic Plan to address problem: Cont Anxiolytics (4) Hypothyroidism (acquired) Current Visit: Yes Status: Acute Plan to address problem: cont Synthyroid (5) HTN (hypertension) Current Visit: Yes Status: Chronic Qualifiers: Hypertension type: essential hypertension Qualified Code(s): I10 - Essential (primary) hypertension Plan to address problem: Cont antihypertensives (6) GERD (gastroesophageal reflux disease) Current Visit: Yes Status: Chronic Qualifiers: Esophagitis presence: without esophagitis Qualified Code(s): K21.9 - Gastro-esophageal reflux disease without esophagitis Plan to address problem: Cont ppi's (7) DVT prophylaxis Current Visit: Yes Status: Acute Plan to address problem: On Lovenox and Gi prophylaxis
[2019-02-19] MEDS ORDERED: ARIPIPRAZOLE 30 MG PO SCH (20:45)
[2019-02-19] MEDS ORDERED: ZOFRAN IV PRN (20:46)
[2019-02-19] MEDS ORDERED: TYLENOL PO PRN (20:46)
[2019-02-19] MEDS ORDERED: SODIUM CHLORIDE FLUSH SYRINGE 10 ML IV PRN (20:46)
[2019-02-19] MEDS ORDERED: PERCOCET 5/325 PO PRN (20:51)
[2019-02-19] MEDS ORDERED: PROVENTIL IH PRN (20:53)
[2019-02-19 20:55] LABS: Chol/HDL Ratio 2.47 %
[2019-02-19] MEDS ORDERED: NACL 0.9% 1000 ML 1,000 ML IV SCH (21:00)
[2019-02-19] MEDS: PEPCID PO SCH (22:43)
[2019-02-19] MEDS: CARAFATE PO SCH (22:43)
[2019-02-19] MEDS ORDERED: BENADRYL PO PRN (22:53)
[2019-02-19] MEDS: COREG PO SCH (23:13)
[2019-02-19] MEDS: SODIUM CHLORIDE FLUSH SYRINGE 10 ML IV SCH (23:14)
[2019-02-20] MEDS: SYNTHROID PO SCH ×2 (04:49→06:12)
[2019-02-20 05:35] LABS: Basophils % (Auto) 0.6 % (0.0-1.8); Eosinophils # (Auto) 0.2 K/mm3 (0.0-0.4); Eosinophils % (Auto) 3.1 % (0.0-4.3); Hematocrit 36.4 % (30.3-42.9); Hemoglobin 11.7 gm/dl (10.1-14.3); Lymphocytes # (Auto) 1.9 K/mm3 (1.2-5.4); Lymphocytes % (Auto) 25.4 % (13.4-35.0); Mean Corpuscular HGB Conc 32 % (30-34); Mean Corpuscular Volume 84 fl (79-97); Monocytes # (Auto) 0.5 K/mm3 (0.0-0.8); Monocytes % (Auto) 6.4 % (0.0-7.3); Platelet Count 205 K/mm3 (140-440); Red Blood Count 4.35 M/mm3 (3.65-5.03); Red Cell Distribution Width 15.2 % (13.2-15.2)
[2019-02-20 06:04] LABS: Alanine Aminotransferase 13 units/L (7-56); Albumin 3.5 g/dL (3.9-5); BUN/Creatinine Ratio 16; Blood Urea Nitrogen 13 mg/dL (7-17); Calcium 8.8 mg/dL (8.4-10.2); Hemolysis Index 7
[2019-02-20] MEDS: PULMICORT IH SCH ×2 (07:42→19:20)
[2019-02-20] MEDS ORDERED: NON-FORMULARY (Clonazepam [Klonopin] 1 MG) PO SCH (08:00)
[2019-02-20] MEDS: K-DUR PO SCH ×3 (08:12→20:48)
[2019-02-20] MEDS ORDERED: ABILIFY PO SCH (10:00)
[2019-02-20] MEDS ORDERED: XARELTO PO SCH (10:00)
[2019-02-20] MEDS ORDERED: FLUTICASONE PROPIONATE IH SCH (10:00)
[2019-02-20] MEDS ORDERED: FLONASE NS SCH (10:00)
[2019-02-20] MEDS ORDERED: PROTONIX PO SCH (10:00)
[2019-02-20] MEDS ORDERED: ALDACTONE PO SCH (10:00)
[2019-02-20] MEDS: SODIUM CHLORIDE FLUSH SYRINGE 10 ML IV SCH (10:15)
--- NOTE | 2019-02-20 10:37 | Magnetic Resonance Report ---
MRI BRAIN WITHOUT CONTRAST INDICATION / CLINICAL INFORMATION: complex migraine, right-sided weakness.. TECHNIQUE: Multiplanar, multisequence MR images of the brain were obtained. COMPARISON: The previous MRI of 02/12/2019 is available for direct comparison. FINDINGS: BRAIN / INTRACRANIAL CONTENTS: The motion degrades image quality despite repeat imaging. However, the brain appears to demonstrate appropriate signal characteristics without significant interval change from the MRI of 02/12/2019 the diffusion imaging reveals no evidence of acute infarction. The ventricular system remains unchanged in size and configuration. No pelvic extra-axial fluid colle ctions or significant mass effect is identified. CRANIOCERVICAL JUNCTION: No significant abnormality. VASCULAR FLOW-VOIDS: No significant abnormality. ORBITS: No significant abnormality of visualized orbits. SINUSES / MASTOIDS: There is minimal mucosal thickening within the ethmoid air cells. ADDITIONAL FINDINGS: None. IMPRESSION: 1. The MRI the brain remains unremarkable without evidence of acute infarction or significant interva l change from 02/12/2019 Signer Name: Jose Luis Ortega MD Signed: 02/20/2019 10:33 AM Workstation Name: [id number]
[2019-02-20] MEDS: COREG PO SCH (10:59)
[2019-02-20] MEDS: PEPCID PO SCH (11:00)
[2019-02-20] MEDS: CARAFATE PO SCH ×3 (11:00→18:07)
--- NOTE | 2019-02-20 17:22 | Consultation ---
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 Tuesday evening, the patient was experiencing chest pain, after which she took 3 tablets sublingually of nitroglycerin. She notes that the chest pain resolved after taking nitroglycerin. She woke up in the morning and was experiencing headaches, which are described as being located mostly over the left side, although they also involve the right side. She states that she also had mild blurry vision, and noticed that there was a red spot on her left cornea. She was brought to the emergency room, and was noted to have mild right facial weakness by the nurse, however she states that this had not changed significantly since baseline. Today, the patient's headache has completely resolved. She states that she had an episode of migraines approximately 20 years ago, however she denies having had any migraines since then. Of note, the patient has undergone ECT in the past for depression. Past History Past Medical History: atrial fib, diabetes, hypertension, hyperlipidemia, hypothyroidism, migraines, other (DVT, PAF, bipolar d/o, schizoaffective d/o. ) Social history: no significant social history Family history: other (Family history of DVT in brother and mother. ) Medications and Allergies Allergies Allergy/AdvReac Type Severity Reaction Status Date / Time acetaminophen [From Lortab] Allergy Shortness Verified 02/12/19 14:14 of Breath aspirin Allergy Hives Verified 02/12/19 14:14 divalproex sodium Allergy Rash Verified 12/27/18 01:28 [From Depakote] hydrocodone [From Lortab] Allergy Hives Verified 02/12/19 14:14 latex Allergy Rash Verified 02/12/19 14:14 nut - unspecified Allergy Shortness Verified 02/12/19 14:14 of Breath oxycodone Allergy Hives Verified 02/12/19 14:14 Penicillins Allergy Rash Verified 12/26/18 18:35 propoxyphene Allergy Rash Verified 12/26/18 18:35 [From Darvocet-N] Sulfa (Sulfonamide Allergy Rash Verified 12/26/18 18:35 Antibiotics) dairy Allergy Diarrhea Uncoded 02/12/19 14:15 napsylate Allergy Hives Uncoded 02/12/19 14:14 Home Medications Medication Instructions Recorded Confirmed Last Taken Type Nitroglycerin [Nitrostat] 0.4 mg SL Q5MIN PRN MDD 3 12/20/18 02/19/19 02/18/19 History Rivaroxaban [Xarelto] 10 mg PO DAILY 12/20/18 02/19/19 02/19/19 History Spironolactone [Aldactone] 25 mg PO DAILY 12/20/18 02/19/19 02/19/19 History ALBUTEROL Inhaler (OR & NICU) 2 puff IH Q4-6H PRN 02/01/19 02/19/19 02/15/19 History [ProAir HFA Inhaler] ARIPiprazole [Abilify] 30 mg PO DAILY 02/01/19 02/19/19 02/19/19 History Carvedilol [Coreg] 6.25 mg PO BID 02/01/19 02/19/19 02/18/19 History Levothyroxine [Synthroid] 125 mcg PO DAILY 02/01/19 02/19/19 02/19/19 History OLANzapine [ZyPREXA] 5 mg PO DAILY 02/01/19 02/19/19 02/18/19 History Pantoprazole [Protonix TAB] 40 mg PO DAILY 02/01/19 02/19/19 02/19/19 History Potassium Chloride [K-Dur] 40 meq PO TID 02/01/19 02/19/19 02/19/19 History Sucralfate [Carafate] 1 gm PO QID 02/01/19 02/19/19 02/18/19 History clonazePAM [Klonopin] 1 mg PO TID 02/01/19 02/19/19 02/19/19 History Fluticasone Propionate [Flovent 2 puff IH DAILY 02/19/19 02/19/19 02/19/19 History Hfa] Fluticasone [Flonase] 1 spray NS QDAY 02/19/19 02/19/19 02/19/19 History Active Meds: Active Medications Acetaminophen (Tylenol) 650 mg PO Q4H PRN PRN Reason: Pain MILD(1-3)/Fever >100.5/[place] Albuterol (Proventil) 2.5 mg IH Q4HRT PRN PRN Reason: Shortness Of Breath Last Admin: 02/20/19 07:42 Dose: 2.5 mg Documented by: Aripiprazole (Abilify) 30 mg PO DAILY [facility] Last Admin: 02/20/19 11:00 Dose: 30 mg Documented by: Budesonide (Pulmicort) 0.5 mg IH Q12HRT [facility] Last Admin: 02/20/19 07:42 Dose: 0.5 mg Documented by: Carvedilol (Coreg) 6.25 mg PO BID [facility] Last Admin: 02/20/19 10:59 Dose: 6.25 mg Documented by: Clonazepam (Klonopin) 1 mg PO TID [facility] Last Admin: 02/20/19 14:30 Dose: 1 mg Documented by: Diphenhydramine HCl (Benadryl) 25 mg PO Q8H PRN PRN Reason: Itching Last Admin: 02/19/19 23:13 Dose: 25 mg Documented by: Famotidine (Pepcid) 20 mg PO BID [facility] Last Admin: 02/20/19 11:00 Dose: 20 mg Documented by: Fluticasone Propionate (Flonase) 50 mcg NS QDAY [facility] Last Admin: 02/20/19 11:01 Dose: 50 mcg Documented by: Hydromorphone HCl (Dilaudid) 0.5 mg IV Q4H PRN PRN Reason: Pain , Severe (7-10) Last Admin: 02/19/19 18:27 Dose: 0.5 mg Documented by: Sodium Chloride (Nacl 0.9% 1000 Ml) 1,000 mls @ 75 mls/hr IV DIRECT [facility] Last Admin: 02/19/19 22:44 Dose: 75 mls/hr Documented by: Levothyroxine Sodium (Synthroid) 125 mcg PO DAILY@0600 [facility] Last Admin: 02/20/19 06:12 Dose: Not Given Documented by: Olanzapine (Zyprexa) 5 mg PO DAILY [facility] Last Admin: 02/20/19 10:45 Dose: 5 mg Documented by: Ondansetron HCl (Zofran) 4 mg IV Q8H PRN PRN Reason: Nausea And Vomiting Pantoprazole Sodium (Protonix) 40 mg PO DAILY [facility] Last Admin: 02/20/19 10:58 Dose: 40 mg Documented by: Potassium Chloride (K-Dur) 40 meq PO TID [facility] Last Admin: 02/20/19 14:35 Dose: 40 meq Documented by: Rivaroxaban (Xarelto) 10 mg PO DAILY [facility]; Protocol Last Admin: 02/20/19 10:59 Dose: 10 mg Documented by: Sodium Chloride (Sodium Chloride Flush Syringe 10 Ml) 10 ml IV BID [facility] Last Admin: 02/20/19 10:15 Dose: 10 ml Documented by: Sodium Chloride (Sodium Chloride Flush Syringe 10 Ml) 10 ml IV PRN PRN PRN Reason: LINE FLUSH Spironolactone (Aldactone) 25 mg PO DAILY [facility] Last Admin: 02/20/19 11:00 Dose: 25 mg Documented by: Sucralfate (Carafate) 1 gm PO QID [facility] Last Admin: 02/20/19 14:35 Dose: 1 gm Documented by: Review of Systems All systems: negative Eyes: right: blurred vision Cardiovascular: chest pain Neurological: headaches Psychiatric: depression Physical Examination - Vital Signs Vital Signs: Vital Signs Temp Pulse Resp BP Pulse Ox 98.1 F 58 L 20 104/61 97 02/19/19 08:36 02/19/19 08:36 02/19/19 08:36 02/19/19 08:36 02/19/19 08:36 - Constitutional General appearance: comfortable - EENT EENT: Present: PERRL, mucous membranes moist, hearing intact, other (mild blurry vision of right eye, VFF, small area of redness in left sclera) - Respiratory Respiratory: Present: lungs clear, normal breath sounds - Cardiovascular Cardiovascular: Present: regular rate Extremities: Present: no peripheral edema bilatateraly, no clubbing, cyanosis - Gastrointestinal Gastrointestinal: Present: soft, non-tender - Integumentary Integumentary: Present: normal - Neurologic Cranial nerve examination: PERRL, EOMI, VFF, ptosis (mild ptosis of right eye, which is baseline), tongue midline, facial droop (right sided, which is baseline.), other (mild bluriness of right eye) Speech examination: intact Sensorimotor examination: intact Detailed motor examination: full strength in all cristiane Motor examination - right side: 5/5: biceps, triceps, wrist flexion, wrist extension, dental technician apprentice, hip flexors, knee extensors, dorsiflexion, toe extension (EHL), plantarflexion Motor examination - left side: 5/5: biceps, triceps, wrist flexion, wrist extension, dental technician apprentice, hip flexors, knee extensors, dorsiflexion, toe extension (EHL), plantarflexion Detailed sensory examination: intact Reflex and gait examination: other (Gait defferred.) Reflexes: 2+: ankle, bicep, knee, tricep Cerebellar examination: other (intact FTN and HTS b/l) - Psychiatric Psychiatric: Present: mood/affect appropriate Results - Laboratory Findings CBC and BMP: 02/20/19 05:01 02/20/19 05:01 Abnormal Lab Findings: Abnormal Labs 02/19/19 02/19/19 02/19/19 08:52 08:52 08:52 MCH 27 L PT 16.5 H INR 1.37 H Glucose 105 H Total Protein Albumin 02/20/19 02/20/19 05:01 05:01 MCH 27 L PT INR Glucose Total Protein 6.2 L Albumin 3.5 L - Diagnostic Findings Additional findings: MRI brain reviewed, which did not show any significant abnormalities. 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 According the patient's clinical findings, and is likely that her headache was due to use of sublingual nitroglycerin. Of note, the patient is had headaches in the past from using sublingual nitrates. Patient states that her mild right facial weakness has been present since she had Stubbs's palsy approximately 7 years ago. She states that Stubbs's palsy never completely recovered or return to baseline, and that she has had mild change in symptoms over the past 7 years. It is less likely the patient's etiology of headaches is due to migraines, as she has not had migraines in approximately 20-25 years, and she does not have any significant aura. Plan: 1. Headache: Likely due to sublingual nitrate use. Would not start on any medications for migraines at this point. Would not recommend triptans, given patient's cardiac history. Headache has not resolved. If recurs in the future, patient has been recommended to follow up with neurology as outpatient. MRI did not reveal any acute abnormalities. 2. Blurry vision: Recommend for patient to follow up with ophthalmology as outpatient, due to unavailability of inpatient ophthalmology. 3. Right facial droop: This has been patient's baseline since she had stubbs's palsy in 2011. No further management needed at this time. Will sign off. Please call with any questions. Senthil Campbell MD Neurology - Patient Problems (1) Stubbs's palsy Current Visit: Yes Status: Chronic (2) Blurry vision, right eye Current Visit: Yes Status: Acute (3) Headache Current Visit: Yes Status: Acute Qualifiers: Headache type: unspecified Headache chronicity pattern: unspecified pattern Intractability: not intractable Qualified Code(s): R51 - Headache
--- NOTE | 2019-02-20 17:58 | Discharge Summary ---
Providers - Providers Date of Admission: 02/19/19 12:11 Date of discharge: 02/20/19 Attending physician: EUGENE IBRAHIM 02/19/19 20:51 Consult to Physician [CONS] Routine Comment: Consulting Provider: GITA WATSON Physician Instructions: Reason For Exam: Migraine 02/20/19 09:42 Occupational Therapy Evaluate and Treat [CONS] Routine Comment: Reason For Exam: cva Physical Therapy Evaluation and Treat [CONS] Routine Comment: Reason For Exam: cva Hospitalization Condition: Good Pertinent studies: MRI unremarkable no evidence of stroke. Hospital course: Patient is a 48-year-old with a previous history of congestive heart failure, unconfirmed coronary artery disease, hypertension DVT diabetes hyperlipidemia previous Stubbs's palsy. Patient developed some substernal chest pain and night took 3 nitroglycerin and went to sleep. Patient awakened that morning with left sided headache and left eye redness. Patient did not have any further chest pain. Patient has not had a headache in over 15 years. Was brought in and evaluated for CVA CT head showed questionable right basal ganglia hypodense area. Follow-up MRI was unremarkable. Patient's chest pain resolved after pain resolved. Did not have any residual weakness no residual headache. Patient stable for discharge and follow-up with ophthalmology as outpatient. Disposition: DC- TO HOME OR SELFCARE - Discharge Diagnoses (1) Blurry vision, right eye Status: Acute (2) Hypothyroidism (acquired) Status: Acute (3) Migraine Status: Acute Qualifiers: Intractability: intractable (4) Stubbs's palsy Status: Chronic (5) Chest pain Status: Acute Qualifiers: Chest pain type: unspecified Qualified Code(s): R07.9 - Chest pain, unspecified (6) Schizoaffective disorder Status: Acute (7) Bipolar disorder Status: Chronic Qualifiers: Active/Remission status: in full remission Core Measure Documentation - Palliative Care Palliative Care/ Comfort Measures: Not Applicable - Core Measures Any of the following diagnoses?: none Exam - Constitutional Vitals: Temp Pulse Resp BP Pulse Ox 98.3 F 78 19 124/76 100 02/20/19 09:19 02/20/19 13:00 02/20/19 13:00 02/20/19 11:00 02/20/19 09:19 General appearance: Present: no acute distress, well-nourished - EENT Eyes: Present: PERRL ENT: hearing intact, clear oral mucosa - Neck Neck: Present: supple, normal ROM - Respiratory Respiratory effort: normal Respiratory: bilateral: CTA - Cardiovascular Heart Sounds: Present: S1 & S2. Absent: rub, click - Extremities Extremities: pulses symmetrical, No edema Extremity abnormal: other (no residual weakness no focal neurologic deficits.) Peripheral Pulses: within normal limits - Abdominal General gastrointestinal: Present: soft, non-tender, non-distended, normal bowel sounds Female genitourinary: Present: normal - Integumentary Integumentary: Present: clear, warm, dry - Musculoskeletal Musculoskeletal: gait normal, strength equal bilaterally - Psychiatric Psychiatric: appropriate mood/affect, intact judgment & insight - Neurologic Neurologic: CNII-XII intact, moves all extremities Plan Activity: no restrictions, fall precautions Weight Bearing Status: Weight Bear as Tolerated Diet: low fat, low cholesterol Follow up with: SIMBA MORALES [Other] - 3-5 Days Prescriptions: Fluticasone Propionate [Flovent Hfa] 2 puff IH DAILY #7 [email or web address] ALBUTEROL Inhaler (OR & NICU) [ProAir HFA Inhaler] 2 puff IH Q4-6H PRN #7 inha PRN Reason: Shortness Of Breath
[2019-02-20 20:23] VITALS: BP 115/66
== END 2019-02-20 21:40 | disposition home health service (06) | DRG 103 ==
LOC: ED 08:23 → 4A 12:11
PROVIDERS: ADMIT Internal Medicine; ATTEND Internal Medicine
DX: G43.919 Migraine, unspecified, intractable, without status migrainosus (principal); J45.909 Unspecified asthma, uncomplicated; I50.9 Heart failure, unspecified; H53.8 Other visual disturbances; I11.0 Hypertensive heart disease with heart failure; E03.9 Hypothyroidism, unspecified; E78.5 Hyperlipidemia, unspecified; E11.9 Type 2 diabetes mellitus without complications; G89.29 Other chronic pain; M54.9 Dorsalgia, unspecified; K58.9 Irritable bowel syndrome, unspecified; R07.9 Chest pain, unspecified; F41.1 Generalized anxiety disorder; K21.9 Gastro-esophageal reflux disease without esophagitis; I48.0 Paroxysmal atrial fibrillation; G51.0 Bell's palsy; F25.9 Schizoaffective disorder, unspecified; Z88.6 Allergy status to analgesic agent; Z91.040 Latex allergy status; Z91.018 Allergy to other foods; Z88.0 Allergy status to penicillin; Z88.2 Allergy status to sulfonamides; Z88.8 Allergy status to other drugs, medicaments and biological substances; Z91.048 Other nonmedicinal substance allergy status; Z79.01 Long term (current) use of anticoagulants; Z86.718 Personal history of other venous thrombosis and embolism
CPT/HCPCS: 36415; 70450; 70496; 70498; 70551; 80048; 80053; 80061; 82962; 83036; 84484; 85025; 85610; 85670; 85730; 93005; 93010; 94640; 94760; G0378; J1170; J7030; Q9967

== ENCOUNTER 2019-03-01 12:30 | Emergency (ER) | payer MEDICARE ==
[2019-03-01 12:52] VITALS: BP 128/86
--- NOTE | 2019-03-01 12:52 | Event Note ---
ED Screening Note ED Screening Note: pt presents with generalized abd pain that began today has had constipation for three days had one episode of emesis states she has a hx of SBO and hernia repair states she tried dulcolax without relief This initial assessment/diagnostic orders/clinical plan/treatment(s) is/are subject to change based on patients health status, clinical progression and re- assessment by fellow clinical providers in the ED. Further treatment and workup at subsequent clinical providers discretion. Patient/guardian urged not to elope from the ED as their condition may be serious if not clinically assessed and managed. Initial orders include: labs, XR of the abdomen, UA
[2019-03-01 13:22] LABS: Basophils % (Auto) 0.6 % (0.0-1.8); Eosinophils # (Auto) 0.1 K/mm3 (0.0-0.4); Eosinophils % (Auto) 1.9 % (0.0-4.3); Hematocrit 38.8 % (30.3-42.9); Hemoglobin 12.6 gm/dl (10.1-14.3); Lymphocytes # (Auto) 1.7 K/mm3 (1.2-5.4); Lymphocytes % (Auto) 22.2 % (13.4-35.0); Mean Corpuscular HGB Conc 33 % (30-34); Mean Corpuscular Volume 83 fl (79-97); Monocytes # (Auto) 0.4 K/mm3 (0.0-0.8); Monocytes % (Auto) 5.3 % (0.0-7.3); Platelet Count 234 K/mm3 (140-440); Red Blood Count 4.67 M/mm3 (3.65-5.03); Red Cell Distribution Width 15.1 % (13.2-15.2)
[2019-03-01 13:45] LABS: BUN/Creatinine Ratio 13; Blood Urea Nitrogen 10 mg/dL (7-17)
[2019-03-01 13:46] LABS: Alanine Aminotransferase 16 units/L (7-56); Albumin 3.9 g/dL (3.9-5); Hemolysis Index 7
--- NOTE | 2019-03-01 14:33 | XRay Report ---
ABDOMEN 2 VIEW(S) INDICATION / CLINICAL INFORMATION: Abdominal pain and constipation. COMPARISON: None available. FINDINGS: TUBES / LINES: None. BOWEL GAS PATTERN: There are multiple air-fluid levels throughout the small bowel. There may be a few air-fluid levels in the right colon but I cannot be certain. There is a [id number] amount of s tool in the colon. I see no evidence of fecal impaction. There is no evidence of bowel dilatation or mass effect. FREE AIR / EXTRALUMINAL GAS: None seen. ADDITIONAL FINDINGS: There are surgical clips in the right upper quadrant. IMPRESSION: Abnormal but nonspecific bowel gas pattern. A low-grade gastroenteritis/enteritis should be considered. An adynamic ileus is less likely. No significant dilatation is seen to suggest obstruc tion. Other causes of diarrhea could also have this appearance. Signer Name: Chidi Phelps MD Signed: 03/01/2019 2:29 PM Workstation Name: [id number]
[2019-03-01 14:51] LABS: Bilirubin,Urine NEG (Negative); Blood,Urine NEG (Negative); Color,Urine Yellow (Yellow); Protein,Urine <15 mg/dL mg/dL (Negative); RBC,Urine < 1.0 /HPF (0.0-6.0); Urobilinogen,Urine < 2.0 mg/dL (<2.0); WBC,Urine < 1.0 /HPF (0.0-6.0)
[2019-03-01] MEDS ORDERED: ZOFRAN IM ONE (15:23)
[2019-03-01] MEDS ORDERED: MORPHINE IM ONE (15:23)
--- NOTE | 2019-03-01 15:57 | Emergency Department Report ---
ED General Adult HPI - General Chief complaint: Abdominal Pain Stated complaint: CONSTIPATION/1 WK Time Seen by Provider: 03/01/19 12:50 Source: patient, EMS Mode of arrival: Ambulatory Limitations: No Limitations - History of Present Illness Initial comments: The patient presents to the emergency department with a chief complaint of abdominal pain. Patient states she has irritable bowel syndrome and has fluctuated between constipation and diarrhea for the last 3 days. Patient states his chronic abdominal pain due to her IBS. She describes the pain as stolen nature and at times crampy. Patient denies any vomiting. Patient also denies chest pain. -: Gradual Location: abdomen Radiation: non-radiation Severity scale (0 -10): 5 Quality: aching, other (crampy) Improves with: none Worsens with: none Associated Symptoms: denies other symptoms Treatments Prior to Arrival: none - Related Data Home Medications Medication Instructions Recorded Confirmed Last Taken Nitroglycerin [Nitrostat] 0.4 mg SL Q5MIN PRN MDD 3 12/20/18 02/19/19 02/18/19 Rivaroxaban [Xarelto] 10 mg PO DAILY 12/20/18 02/19/19 02/19/19 Spironolactone [Aldactone] 25 mg PO DAILY 12/20/18 02/19/19 02/19/19 ARIPiprazole [Abilify] 30 mg PO DAILY 02/01/19 02/19/19 02/19/19 Carvedilol [Coreg] 6.25 mg PO BID 02/01/19 02/19/19 02/18/19 Levothyroxine [Synthroid] 125 mcg PO DAILY 02/01/19 02/19/19 02/19/19 OLANzapine [ZyPREXA] 5 mg PO DAILY 02/01/19 02/19/19 02/18/19 Pantoprazole [Protonix TAB] 40 mg PO DAILY 02/01/19 02/19/19 02/19/19 Potassium Chloride [K-Dur] 40 meq PO TID 02/01/19 02/19/19 02/19/19 clonazePAM [Klonopin] 1 mg PO TID 02/01/19 02/19/19 02/19/19 Fluticasone [Flonase] 1 spray NS QDAY 02/19/19 02/19/19 02/19/19 Previous Rx's Medication Instructions Recorded Last Taken Type ALBUTEROL Inhaler (OR & NICU) 2 puff IH Q4-6H PRN #7 inha 02/20/19 Unknown Rx [ProAir HFA Inhaler] Fluticasone Propionate [Flovent 2 puff IH DAILY #7 aer.w.adap 02/20/19 Unknown Rx Hfa] Rivaroxaban [Xarelto] 10 mg PO DAILY tablet 02/20/19 Unknown Rx Dicyclomine [Bentyl] 10 mg PO QID PRN #10 capsule 03/01/19 Unknown Rx Allergies Allergy/AdvReac Type Severity Reaction Status Date / Time acetaminophen [From Lortab] Allergy Shortness Verified 02/12/19 14:14 of Breath aspirin Allergy Hives Verified 02/12/19 14:14 divalproex sodium Allergy Rash Verified 12/27/18 01:28 [From Depakote] hydrocodone [From Lortab] Allergy Hives Verified 02/12/19 14:14 latex Allergy Rash Verified 02/12/19 14:14 nut - unspecified Allergy Shortness Verified 02/12/19 14:14 of Breath oxycodone Allergy Hives Verified 02/12/19 14:14 Penicillins Allergy Rash Verified 12/26/18 18:35 propoxyphene Allergy Rash Verified 12/26/18 18:35 [From Darvocet-N] Sulfa (Sulfonamide Allergy Rash Verified 12/26/18 18:35 Antibiotics) dairy Allergy Diarrhea Uncoded 02/12/19 14:15 napsylate Allergy Hives Uncoded 02/12/19 14:14 ED Review of Systems ROS: Stated complaint: CONSTIPATION/1 WK Other details as noted in HPI Comment: All other systems reviewed and negative Constitutional: denies: chills, fever Eyes: denies: eye pain, eye discharge, vision change ENT: denies: ear pain, throat pain Respiratory: denies: cough, shortness of breath, wheezing Cardiovascular: denies: chest pain, palpitations Endocrine: no symptoms reported Gastrointestinal: abdominal pain, diarrhea, constipation. denies: nausea Genitourinary: denies: urgency, dysuria, discharge Musculoskeletal: denies: back pain, joint swelling, arthralgia Skin: denies: rash, lesions Neurological: denies: headache, weakness, paresthesias Psychiatric: denies: anxiety, depression Hematological/Lymphatic: denies: easy bleeding, easy bruising ED Past Medical Hx - Past Medical History Previous Medical History?: Yes Hx Hypertension: Yes Hx Congestive Heart Failure: Yes Hx Diabetes: Yes Hx Deep Vein Thrombosis: Yes Hx Psychiatric Treatment: Yes (Bipolar Depressed schizo affective) Hx Asthma: Yes Hx COPD: No Additional medical history: Hypothyroidism, sleep apnea, DVT, Chronic Back pain, Gastritis, IBS. Hyperlipidemia, Ovarian cyst. Stubbs's palsey - Surgical History Past Surgical History?: Yes Hx Cholecystectomy: Yes Additional Surgical History: Tonsilectomy, Uterine Ablation, Hernia repair, D&C. 2 molar pulled. stiched to nasal cavity. Right Rotator cuff repair. - Social History Smoking Status: Never Smoker Substance Use Type: None - Medications Home Medications: Home Medications Medication Instructions Recorded Confirmed Last Taken Type Nitroglycerin [Nitrostat] 0.4 mg SL Q5MIN PRN MDD 3 12/20/18 02/19/19 02/18/19 History Rivaroxaban [Xarelto] 10 mg PO DAILY 12/20/18 02/19/19 02/19/19 History Spironolactone [Aldactone] 25 mg PO DAILY 12/20/18 02/19/19 02/19/19 History ARIPiprazole [Abilify] 30 mg PO DAILY 02/01/19 02/19/19 02/19/19 History Carvedilol [Coreg] 6.25 mg PO BID 02/01/19 02/19/19 02/18/19 History Levothyroxine [Synthroid] 125 mcg PO DAILY 02/01/19 02/19/19 02/19/19 History OLANzapine [ZyPREXA] 5 mg PO DAILY 02/01/19 02/19/19 02/18/19 History Pantoprazole [Protonix TAB] 40 mg PO DAILY 02/01/19 02/19/19 02/19/19 History Potassium Chloride [K-Dur] 40 meq PO TID 02/01/19 02/19/19 02/19/19 History clonazePAM [Klonopin] 1 mg PO TID 02/01/19 02/19/19 02/19/19 History Fluticasone [Flonase] 1 spray NS QDAY 02/19/19 02/19/19 02/19/19 History ALBUTEROL Inhaler (OR & NICU) 2 puff IH Q4-6H PRN #7 inha 02/20/19 Unknown Rx [ProAir HFA Inhaler] Fluticasone Propionate [Flovent 2 puff IH DAILY #7 aer.w.adap 02/20/19 Unknown Rx Hfa] Rivaroxaban [Xarelto] 10 mg PO DAILY tablet 02/20/19 Unknown Rx Dicyclomine [Bentyl] 10 mg PO QID PRN #10 capsule 03/01/19 Unknown Rx ED Physical Exam - General Limitations: No Limitations General appearance: alert, in no apparent distress - Head Head exam: Present: atraumatic, normocephalic - Eye Eye exam: Present: normal appearance, PERRL, EOMI - ENT ENT exam: Present: mucous membranes moist - Neck Neck exam: Present: normal inspection - Respiratory Respiratory exam: Present: normal lung sounds bilaterally. Absent: respiratory distress - Cardiovascular Cardiovascular Exam: Present: regular rate, normal rhythm. Absent: systolic murmur, diastolic murmur, rubs, gallop - GI/Abdominal GI/Abdominal exam: Present: soft, normal bowel sounds. Absent: distended, tenderness - Extremities Exam Extremities exam: Present: normal inspection - Back Exam Back exam: Present: normal inspection - Neurological Exam Neurological exam: Present: alert, oriented X3, CN II-XII intact. Absent: motor sensory deficit - Psychiatric Psychiatric exam: Present: normal affect, normal mood - Skin Skin exam: Present: warm, dry, intact, normal color. Absent: rash ED Course Vital Signs 03/01/19 12:50 Temperature 98.1 F Pulse Rate 56 L Respiratory 20 Rate Blood Pressure 128/86 O2 Sat by Pulse 99 Oximetry ED Medical Decision Making - Lab Data Result diagrams: 03/01/19 13:12 03/01/19 13:12 - Radiology Data Radiology results: report reviewed - Medical Decision Making Discussed results with the patient Critical care attestation.: If time is entered above; I have spent that time in minutes in the direct care of this critically ill patient, excluding procedure time. ED Disposition Clinical Impression: Abdominal pain Disposition: DC-01 TO HOME OR SELFCARE Is pt being admited?: No Does the pt Need Aspirin: No Condition: Stable Instructions: Abdominal Pain (ED) Additional Instructions: return if worse Referrals: LESLYE MARSHALL MD [Primary Care Provider] - 3-5 Days Time of Disposition: 15:55
== END 2019-03-01 16:05 | disposition home or self-care (01) ==
LOC: ED 12:30
DX: R10.9 Unspecified abdominal pain (principal); R19.7 Diarrhea, unspecified; K59.00 Constipation, unspecified; I11.0 Hypertensive heart disease with heart failure; I50.9 Heart failure, unspecified; E11.9 Type 2 diabetes mellitus without complications; F25.0 Schizoaffective disorder, bipolar type; J45.909 Unspecified asthma, uncomplicated; E03.9 Hypothyroidism, unspecified; K58.9 Irritable bowel syndrome, unspecified; G51.0 Bell's palsy; Z90.49 Acquired absence of other specified parts of digestive tract; Z90.89 Acquired absence of other organs; Z98.890 Other specified postprocedural states; Z79.899 Other long term (current) drug therapy; Z91.018 Allergy to other foods; Z91.040 Latex allergy status; Z88.6 Allergy status to analgesic agent; Z88.0 Allergy status to penicillin; Z88.8 Allergy status to other drugs, medicaments and biological substances
CPT/HCPCS: 36415; 74019; 80053; 81001; 83690; 85025; 96372; 99284; J2270; J2405

== ENCOUNTER 2019-03-16 14:51 | Emergency (ER) | payer MEDICARE ==
[2019-03-16 15:17] VITALS: BP 131/86
--- NOTE | 2019-03-16 15:19 | Event Note ---
ED Screening Note Date of service: 03/16/19 Time: 15:15 ED Screening Note: This is a 48 y.o. F. that presents to the ER with hematuria and rash to genitalia. Patient states she was discharged from a [facility] last week. Reports feeling anxious and out of clonidine. Patient states she was treated for a UTI but symptoms are the same. This initial assessment/diagnostic orders/clinical plan/treatment(s) is/are subject to change based on patients health status, clinical progression and re- assessment by fellow clinical providers in the ED. Further treatment and workup at subsequent clinical providers discretion. Patient/guardian urged not to elope from the ED as their condition may be serious if not clinically assessed and managed. Initial orders include: UA
[2019-03-16 16:30] LABS: Bilirubin,Urine NEG (Negative); Blood,Urine NEG (Negative); Color,Urine Yellow (Yellow); Protein,Urine <15 mg/dL mg/dL (Negative); Urobilinogen,Urine < 2.0 mg/dL (<2.0)
--- NOTE | 2019-03-16 16:32 | Emergency Department Report ---
ED Female HPI - General Chief complaint: Urogenital-Female Stated complaint: uti Time Seen by Provider: 03/16/19 15:15 Source: patient Mode of arrival: Ambulatory Limitations: No Limitations - History of Present Illness Initial comments: Patient is a 48-year-old female who presents to the emergency room complains of dysuria and urinary frequency that began a week ago. She states she was treated for a UTI at [facility] but her symptoms have returned. The patient states she also noticed a rash in her vaginal area that began today. she does not report any vomiting, diarrhea, abdominal pain, fever, vaginal discharge. the patient also states that the [facility] did not deliver her xarelto, lasix, potassium to her house. states that she needs paper prescriptions to get the medications filled. - Related Data Home Medications Medication Instructions Recorded Confirmed Last Taken Nitroglycerin [Nitrostat] 0.4 mg SL Q5MIN PRN MDD 3 12/20/18 02/19/19 02/18/19 Spironolactone [Aldactone] 25 mg PO DAILY 12/20/18 02/19/19 02/19/19 ARIPiprazole [Abilify] 30 mg PO DAILY 02/01/19 02/19/19 02/19/19 Carvedilol [Coreg] 6.25 mg PO BID 02/01/19 02/19/19 02/18/19 Levothyroxine [Synthroid] 125 mcg PO DAILY 02/01/19 02/19/19 02/19/19 OLANzapine [ZyPREXA] 5 mg PO DAILY 02/01/19 02/19/19 02/18/19 Pantoprazole [Protonix TAB] 40 mg PO DAILY 02/01/19 02/19/19 02/19/19 clonazePAM [Klonopin] 1 mg PO TID 02/01/19 02/19/19 02/19/19 Fluticasone [Flonase] 1 spray NS QDAY 02/19/19 02/19/19 02/19/19 Previous Rx's Medication Instructions Recorded Last Taken Type ALBUTEROL Inhaler (OR & NICU) 2 puff IH Q4-6H PRN #7 inha 02/20/19 Unknown Rx [ProAir HFA Inhaler] Fluticasone Propionate [Flovent 2 puff IH DAILY #7 aer.w.adap 02/20/19 Unknown Rx Hfa] Rivaroxaban [Xarelto] 10 mg PO DAILY tablet 02/20/19 Unknown Rx Dicyclomine [Bentyl] 10 mg PO QID PRN #10 capsule 03/01/19 Unknown Rx Furosemide [Lasix TAB] 40 mg PO QDAY #30 tablet 03/16/19 Unknown Rx Nystatin Oint [Mycostatin Oint] 1 applicatio TP BID #1 tube 03/16/19 Unknown Rx Potassium Chloride [K-Dur] 40 meq PO ONCE #60 tablet 03/16/19 Unknown Rx Rivaroxaban [Xarelto] 10 mg PO DAILY #30 tablet 03/16/19 Unknown Rx Allergies Allergy/AdvReac Type Severity Reaction Status Date / Time acetaminophen [From Lortab] Allergy Shortness Verified 02/12/19 14:14 of Breath aspirin Allergy Hives Verified 02/12/19 14:14 divalproex sodium Allergy Rash Verified 12/27/18 01:28 [From Depakote] hydrocodone [From Lortab] Allergy Hives Verified 02/12/19 14:14 latex Allergy Rash Verified 02/12/19 14:14 nut - unspecified Allergy Shortness Verified 02/12/19 14:14 of Breath oxycodone Allergy Hives Verified 02/12/19 14:14 Penicillins Allergy Rash Verified 12/26/18 18:35 propoxyphene Allergy Rash Verified 12/26/18 18:35 [From Darvocet-N] Sulfa (Sulfonamide Allergy Rash Verified 12/26/18 18:35 Antibiotics) dairy Allergy Diarrhea Uncoded 02/12/19 14:15 napsylate Allergy Hives Uncoded 02/12/19 14:14 ED Review of Systems ROS: Stated complaint: BLOOD IN STOOL/POSS UTI/HIGH ANXIETY Other details as noted in HPI Comment: All other systems reviewed and negative ED Past Medical Hx - Past Medical History Hx Hypertension: Yes Hx Congestive Heart Failure: Yes Hx Diabetes: Yes Hx Deep Vein Thrombosis: Yes Hx Psychiatric Treatment: Yes (Bipolar Depressed schizo affective) Hx Asthma: Yes Hx COPD: No Additional medical history: Hypothyroidism, sleep apnea, DVT, Chronic Back pain, Gastritis, IBS. Hyperlipidemia, Ovarian cyst. Stubbs's palsey - Surgical History Hx Cholecystectomy: Yes Additional Surgical History: Tonsilectomy, Uterine Ablation, Hernia repair, D&C. 2 molar pulled. stiched to nasal cavity. Right Rotator cuff repair. - Social History Smoking Status: Never Smoker Substance Use Type: None - Medications Home Medications: Home Medications Medication Instructions Recorded Confirmed Last Taken Type Nitroglycerin [Nitrostat] 0.4 mg SL Q5MIN PRN MDD 3 12/20/18 02/19/19 02/18/19 History Spironolactone [Aldactone] 25 mg PO DAILY 12/20/18 02/19/19 02/19/19 History ARIPiprazole [Abilify] 30 mg PO DAILY 02/01/19 02/19/19 02/19/19 History Carvedilol [Coreg] 6.25 mg PO BID 02/01/19 02/19/19 02/18/19 History Levothyroxine [Synthroid] 125 mcg PO DAILY 02/01/19 02/19/19 02/19/19 History OLANzapine [ZyPREXA] 5 mg PO DAILY 02/01/19 02/19/19 02/18/19 History Pantoprazole [Protonix TAB] 40 mg PO DAILY 02/01/19 02/19/19 02/19/19 History clonazePAM [Klonopin] 1 mg PO TID 02/01/19 02/19/19 02/19/19 History Fluticasone [Flonase] 1 spray NS QDAY 02/19/19 02/19/19 02/19/19 History ALBUTEROL Inhaler (OR & NICU) 2 puff IH Q4-6H PRN #7 inha 02/20/19 Unknown Rx [ProAir HFA Inhaler] Fluticasone Propionate [Flovent 2 puff IH DAILY #7 aer.w.adap 02/20/19 Unknown Rx Hfa] Rivaroxaban [Xarelto] 10 mg PO DAILY tablet 02/20/19 Unknown Rx Dicyclomine [Bentyl] 10 mg PO QID PRN #10 capsule 03/01/19 Unknown Rx Furosemide [Lasix TAB] 40 mg PO QDAY #30 tablet 03/16/19 Unknown Rx Nystatin Oint [Mycostatin Oint] 1 applicatio TP BID #1 tube 03/16/19 Unknown Rx Potassium Chloride [K-Dur] 40 meq PO ONCE #60 tablet 03/16/19 Unknown Rx Rivaroxaban [Xarelto] 10 mg PO DAILY #30 tablet 03/16/19 Unknown Rx ED Physical Exam - General Limitations: No Limitations General appearance: alert, in no apparent distress - Head Head exam: Present: atraumatic, normocephalic - Eye Eye exam: Present: normal appearance - ENT ENT exam: Present: mucous membranes moist - Respiratory Respiratory exam: Present: normal lung sounds bilaterally. Absent: respiratory distress, wheezes, rales, rhonchi, stridor, chest wall tenderness, accessory m uscle use, decreased breath sounds, prolonged expiratory - Cardiovascular Cardiovascular Exam: Present: regular rate, normal rhythm, normal heart sounds. Absent: systolic murmur, diastolic murmur, rubs, gallop - GI/Abdominal GI/Abdominal exam: Present: soft, normal bowel sounds. Absent: distended, tenderness, guarding, rebound, rigid - Back Exam Back exam: Absent: CVA tenderness (R), CVA tenderness (L) - Neurological Exam Neurological exam: Present: alert, oriented X3 - Psychiatric Psychiatric exam: Present: normal affect, normal mood - Skin Skin exam: Present: warm, dry, other (erythema with small amount of scaling to the pannus and the mons pubis, no blistering, no drainage, no skin denuding, central office trouble shooter: HUEY Brandno) ED Course Vital Signs 03/16/19 15:15 Temperature 98.2 F Pulse Rate 55 L Respiratory 20 Rate Blood Pressure 131/86 O2 Sat by Pulse 99 Oximetry ED Medical Decision Making - Medical Decision Making Patient is a 48-year-old female who presents to the emergency room complains of dysuria and urinary frequency that began a week ago. She states she was treated for a UTI at [facility] but her symptoms have returned. The patient states she also noticed a rash in her vaginal area that began today. she does not report any vomiting, diarrhea, abdominal pain, fever, vaginal discharge. the patient also states that the [facility] did not deliver her xarelto, lasix, potassium to her house. states that she needs paper prescriptions to get the medications filled. VSS. on exam: erythema with small amount of scaling to the pannus and the mons pubis, no blistering, no drainage, no skin denuding, central office trouble shooter: HUEY Brandon. UA without evidence of UTI. rash in the mons pubis/pannus appears fungal. pt given nystatin cream. Please use medication as prescribed. Please follow up with an SENIOR SECURITY ANALYST in the next 2-3 days for further evaluation of your symptoms. advised Please follow up with her primary care doctor and a mental health doctor in the next 2-3 days. Return to the emergency room for any new or worsening symptoms. refilled pts medications. given 1 month supply. advised to see a primary care for future refills. Critical care attestation.: If time is entered above; I have spent that time in minutes in the direct care of this critically ill patient, excluding procedure time. ED Disposition Clinical Impression: Dysuria, Tinea corporis, Medication refill Disposition: TO HOME OR SELFCARE Is pt being admited?: No Does the pt Need Aspirin: No Condition: Stable Instructions: Tinea Corporis (ED), Dysuria (ED) Additional Instructions: Please use medication as prescribed. Please follow up with an SENIOR SECURITY ANALYST in the next 2-3 days for further evaluation of your symptoms. Please follow up with her primary care doctor and a mental health doctor in the next 2-3 days. Return to the emergency room for any new or worsening symptoms. Prescriptions: Potassium Chloride [K-Dur] 40 meq PO ONCE #60 tablet Furosemide [Lasix TAB] 40 mg PO QDAY #30 tablet Nystatin Oint [Mycostatin Oint] 1 applicatio TP BID #1 tube Rivaroxaban [Xarelto] 10 mg PO DAILY #30 tablet Referrals: SIMBA MORALES [Other] - 2-3 Days [facility] [Provider Group] - 2-3 Days [facility] [Provider Group] - 2-3 Days [facility] [Outside] - 2-3 Days EUGENE IBRAHIM MD [Staff Physician] - 2-3 Days [facility] [Provider Group] - 2-3 Days Time of Disposition: 17:39 Print Language: SALVADOREAN
== END 2019-03-16 18:02 | disposition home or self-care (01) ==
LOC: ED 14:51
DX: R30.0 Dysuria (principal); B35.4 Tinea corporis; Z76.0 Encounter for issue of repeat prescription; I11.0 Hypertensive heart disease with heart failure; I50.9 Heart failure, unspecified; E11.9 Type 2 diabetes mellitus without complications; F31.9 Bipolar disorder, unspecified; J45.909 Unspecified asthma, uncomplicated; E03.9 Hypothyroidism, unspecified; F25.9 Schizoaffective disorder, unspecified; G47.30 Sleep apnea, unspecified; Z86.718 Personal history of other venous thrombosis and embolism; E78.5 Hyperlipidemia, unspecified; G51.0 Bell's palsy; Z90.49 Acquired absence of other specified parts of digestive tract
CPT/HCPCS: 81001

== ENCOUNTER 2019-03-21 16:54 | Emergency (ER) | payer MEDICARE ==
[2019-03-21] MEDS ORDERED: ATIVAN PO ONE ×2 (17:17→20:19)
--- NOTE | 2019-03-21 17:26 | Emergency Department Report ---
ED Psych HPI - General Chief Complaint: Chest Pain Stated Complaint: CHEST PAIN Time Seen by Provider: 03/21/19 17:17 Source: patient, EMS Mode of arrival: Stretcher - History of Present Illness Initial Comments: Mrs. Carreon is a 48-year-old female with history of schizoaffective disorder, bipolar disorder, acute CVA, hypertension, GERD, depression, anxiety, asthma, hypothyroidism, atrial fibrillation, diabetes mellitus, IBS migraine who presents with anxiety and chest pain. He became upset after a worker at the [facility] yelled at her. She didn't develop chest pain. She arrives per EMS. She has not no chest pain. Mild discomfort. She admits to anxiety. She is upset and tearful . She states, "She yelled at me." She denies suicidal or homicidal ideation. Complaint: other (upset) -: Sudden, This afternoon Associated Psychiatric Symptoms: other (anxiety) Quality: constant Improves With: none Worsens With: none Context: significant life stressor Associated Symptoms: denies other symptoms Treatments Prior to Arrival: none - Related Data Home Medications Medication Instructions Recorded Confirmed Last Taken Nitroglycerin [Nitrostat] 0.4 mg SL Q5MIN PRN MDD 3 12/20/18 03/21/19 02/18/19 Spironolactone [Aldactone] 25 mg PO DAILY 12/20/18 03/21/19 02/19/19 ARIPiprazole [Abilify] 30 mg PO DAILY 02/01/19 03/21/19 02/19/19 Carvedilol [Coreg] 6.25 mg PO BID 02/01/19 03/21/19 02/18/19 Levothyroxine [Synthroid] 125 mcg PO DAILY 02/01/19 03/21/19 02/19/19 OLANzapine [ZyPREXA] 5 mg PO DAILY 02/01/19 03/21/19 02/18/19 Pantoprazole [Protonix TAB] 40 mg PO DAILY 02/01/19 03/21/19 02/19/19 clonazePAM [Klonopin] 1 mg PO TID 02/01/19 03/21/19 02/19/19 Fluticasone [Flonase] 1 spray NS QDAY 02/19/19 03/21/19 02/19/19 Previous Rx's Medication Instructions Recorded Last Taken Type ALBUTEROL Inhaler (OR & NICU) 2 puff IH Q4-6H PRN #7 inha 02/20/19 Unknown Rx [ProAir HFA Inhaler] Fluticasone Propionate [Flovent 2 puff IH DAILY #7 aer.w.adap 02/20/19 Unknown Rx Hfa] Rivaroxaban [Xarelto] 10 mg PO DAILY tablet 02/20/19 Unknown Rx Dicyclomine [Bentyl] 10 mg PO QID PRN #10 capsule 03/01/19 Unknown Rx Furosemide [Lasix TAB] 40 mg PO QDAY #30 tablet 03/16/19 Unknown Rx Nystatin Oint [Mycostatin Oint] 1 applicatio TP BID #1 tube 03/16/19 Unknown Rx Potassium Chloride [K-Dur] 40 meq PO ONCE #60 tablet 03/16/19 Unknown Rx Rivaroxaban [Xarelto] 10 mg PO DAILY #30 tablet 03/16/19 Unknown Rx Allergies Allergy/AdvReac Type Severity Reaction Status Date / Time acetaminophen [From Lortab] Allergy Shortness Verified 02/12/19 14:14 of Breath aspirin Allergy Hives Verified 02/12/19 14:14 divalproex sodium Allergy Rash Verified 12/27/18 01:28 [From Depakote] hydrocodone [From Lortab] Allergy Hives Verified 02/12/19 14:14 latex Allergy Rash Verified 02/12/19 14:14 nut - unspecified Allergy Shortness Verified 02/12/19 14:14 of Breath oxycodone Allergy Hives Verified 02/12/19 14:14 Penicillins Allergy Rash Verified 12/26/18 18:35 propoxyphene Allergy Rash Verified 12/26/18 18:35 [From Darvocet-N] Sulfa (Sulfonamide Allergy Rash Verified 12/26/18 18:35 Antibiotics) dairy Allergy Diarrhea Uncoded 02/12/19 14:15 napsylate Allergy Hives Uncoded 02/12/19 14:14 ED Review of Systems ROS: Stated complaint: CHEST PAIN Other details as noted in HPI Comment: All other systems reviewed and negative Constitutional: denies: fever, malaise Respiratory: denies: cough Cardiovascular: denies: chest pain ED Past Medical Hx - Past Medical History Previous Medical History?: Yes Hx Hypertension: Yes Hx Congestive Heart Failure: Yes Hx Diabetes: Yes Hx Deep Vein Thrombosis: Yes Hx Psychiatric Treatment: Yes (Bipolar Depressed schizo affective, anxiety) Hx Asthma: Yes Hx COPD: No Additional medical history: Hypothyroidism, sleep apnea, DVT, Chronic Back pain, Gastritis, IBS. Hyperlipidemia, Ovarian cyst. Stubbs's palsey - Surgical History Past Surgical History?: Yes Hx Cholecystectomy: Yes Additional Surgical History: Tonsilectomy, Uterine Ablation, Hernia repair, D&C. 2 molar pulled. stiched to nasal cavity. Right Rotator cuff repair. - Social History Smoking Status: Unknown if ever smoked - Medications Home Medications: Home Medications Medication Instructions Recorded Confirmed Last Taken Type Nitroglycerin [Nitrostat] 0.4 mg SL Q5MIN PRN MDD 3 12/20/18 03/21/19 02/18/19 History Spironolactone [Aldactone] 25 mg PO DAILY 12/20/18 03/21/19 02/19/19 History ARIPiprazole [Abilify] 30 mg PO DAILY 02/01/19 03/21/19 02/19/19 History Carvedilol [Coreg] 6.25 mg PO BID 02/01/19 03/21/19 02/18/19 History Levothyroxine [Synthroid] 125 mcg PO DAILY 02/01/19 03/21/19 02/19/19 History OLANzapine [ZyPREXA] 5 mg PO DAILY 02/01/19 03/21/19 02/18/19 History Pantoprazole [Protonix TAB] 40 mg PO DAILY 02/01/19 03/21/19 02/19/19 History clonazePAM [Klonopin] 1 mg PO TID 02/01/19 03/21/19 02/19/19 History Fluticasone [Flonase] 1 spray NS QDAY 02/19/19 03/21/19 02/19/19 History ALBUTEROL Inhaler (OR & NICU) 2 puff IH Q4-6H PRN #7 inha 02/20/19 03/21/19 Unknown Rx [ProAir HFA Inhaler] Fluticasone Propionate [Flovent 2 puff IH DAILY #7 aer.w.adap 02/20/19 03/21/19 Unknown Rx Hfa] Rivaroxaban [Xarelto] 10 mg PO DAILY tablet 02/20/19 03/21/19 Unknown Rx Dicyclomine [Bentyl] 10 mg PO QID PRN #10 capsule 03/01/19 03/21/19 Unknown Rx Furosemide [Lasix TAB] 40 mg PO QDAY #30 tablet 03/16/19 03/21/19 Unknown Rx Nystatin Oint [Mycostatin Oint] 1 applicatio TP BID #1 tube 03/16/19 03/21/19 Un known Rx Potassium Chloride [K-Dur] 40 meq PO ONCE #60 tablet 03/16/19 03/21/19 Unknown Rx Rivaroxaban [Xarelto] 10 mg PO DAILY #30 tablet 03/16/19 03/21/19 Unknown Rx ED Physical Exam - General Limitations: No Limitations General appearance: alert, in no apparent distress - Head Head exam: Present: atraumatic, normocephalic - Eye Eye exam: Present: normal appearance - ENT ENT exam: Present: mucous membranes moist - Neck Neck exam: Present: normal inspection, full ROM - Respiratory Respiratory exam: Present: normal lung sounds bilaterally. Absent: respiratory distress, wheezes, rales, rhonchi, stridor - Cardiovascular Cardiovascular Exam: Present: regular rate, normal rhythm, normal heart sounds. Absent: systolic murmur, diastolic murmur, rubs, gallop - GI/Abdominal GI/Abdominal exam: Present: soft, normal bowel sounds. Absent: distended, tenderness, guarding, rebound - Extremities Exam Extremities exam: Present: normal inspection - Back Exam Back exam: Present: normal inspection - Neurological Exam Neurological exam: Present: alert, oriented X3 - Psychiatric Psychiatric exam: Present: depressed, anxious - Skin Skin exam: Present: warm, dry, intact, normal color. Absent: rash ED Course Vital Signs 03/21/19 03/21/19 03/21/19 16:56 17:00 17:09 Temperature 99 F Pulse Rate 83 Respiratory 18 Rate Blood Pressure 118/74 Blood Pressure [Left] O2 Sat by Pulse 88 96 95 Oximetry 03/21/19 03/21/19 03/21/19 17:14 17:30 18:00 Temperature Pulse Rate 80 68 Respiratory 18 15 21 Rate Blood Pressure 123/75 127/72 Blood Pressure [Left] O2 Sat by Pulse 95 92 95 Oximetry 03/21/19 03/21/19 03/21/19 18:30 19:00 19:15 Temperature 98.3 F Pulse Rate 84 75 85 Respiratory 18 13 12 Rate Blood Pressure 135/79 121/72 Blood Pressure 121/72 [Left] O2 Sat by Pulse 94 93 97 Oximetry 03/21/19 20:12 Temperature 97.4 F L Pulse Rate 79 Respiratory 18 Rate Blood Pressure Blood Pressure 141/73 [Left] O2 Sat by Pulse 99 Oximetry ED Medical Decision Making - Lab Data Result diagrams: 03/21/19 20:32 03/21/19 20:32 Laboratory Results - last 24 hr 03/21/19 03/21/19 03/21/19 20:32 20:32 20:32 WBC 9.7 RBC 4.62 Hgb 12.4 Hct 39.0 MCV 84 MCH 27 L MCHC 32 RDW 15.6 H Plt Count 270 Lymph % (Auto) 21.6 [place] % (Auto) 5.0 Eos % (Auto) 2.0 Baso % (Auto) 0.7 Lymph # 2.1 [place] # 0.5 Eos # 0.2 Baso # 0.1 Seg Neutrophils % 70.7 H Seg Neutrophils # 6.8 Sodium 142 Potassium 3.7 Chloride 101.7 Carbon Dioxide 29 Anion Gap 15 BUN 6 L Creatinine 0.8 Estimated GFR > 60 BUN/Creatinine Ratio 8 Glucose 98 Calcium 9.0 Total Bilirubin 0.20 AST 14 ALT 12 Alkaline Phosphatase 113 Total Protein 6.9 Albumin 3.9 Albumin/Globulin Ratio 1.3 Plasma/Serum Alcohol < 0.01 - EKG Data 03/21/19 19:01 EKG obtained 1738 Rate 85 beats a minute normal axis prolonged QT interval no ST elevation nonspecific T wave pattern - Medical Decision Making Mrs. Pardo presents with anxiety and stress reaction. I do not suspect an ac hanna medical condition causing nondescript mild chest pain. She is tearful and crying profusely. She received Ativan. Once I informed patient that she is free to be discharged. She stated that "I'm going to do it. I am going to do myself in. I can't go back there. I'm going to go to sleep." Due to impulsivity and inability to ensure safety, I have placed patient on 1013 involuntary hold with appropriate precautions. Awaiting further treatment recommendations by psychiatric team. Patient is medically clear for psychiatric care. She does not have acute medical condition which needs further treatment or resuscitation at this time. Critical care attestation.: If time is entered above; I have spent that time in minutes in the direct care of this critically ill patient, excluding procedure time. ED Disposition Clinical Impression: Bipolar disorder, Anxiety, Suicidal ideation, Acute depression, Chest pain, Schizoaffective disorder Disposition: DC/TX-70 ANOTHER TYPE HLTHCARE Is pt being admited?: No Does the pt Need Aspirin: No Condition: Stable Instructions: Chest Pain (ED) Referrals: JACQUELINE ANDERSON MD [Primary Care Provider] - 3-5 Days
[2019-03-21 20:48] LABS: Basophils # (Auto) 0.1 K/mm3 (0.0-0.1); Basophils % (Auto) 0.7 % (0.0-1.8); Eosinophils # (Auto) 0.2 K/mm3 (0.0-0.4); Hemoglobin 12.4 gm/dl (10.1-14.3); Lymphocytes # (Auto) 2.1 K/mm3 (1.2-5.4); Lymphocytes % (Auto) 21.6 % (13.4-35.0); Mean Corpuscular HGB Conc 32 % (30-34); Mean Corpuscular Volume 84 fl (79-97); Monocytes # (Auto) 0.5 K/mm3 (0.0-0.8); Platelet Count 270 K/mm3 (140-440); Red Blood Count 4.62 M/mm3 (3.65-5.03); Red Cell Distribution Width 15.6 % (13.2-15.2)
[2019-03-21 21:09] LABS: Alanine Aminotransferase 12 units/L (7-56); Albumin 3.9 g/dL (3.9-5); BUN/Creatinine Ratio 8; Blood Urea Nitrogen 6 mg/dL (7-17); Hemolysis Index 15
[2019-03-21] MEDS ORDERED: ATIVAN ONE (22:39)
[2019-03-22 01:54] LABS: Amphetamine Screen,Urine PRESUMPTIVE NEGATIVE; Benzodiazepines Screen,Urine PRESUMPTIVE NEGATIVE; Bilirubin,Urine NEG (Negative); Blood,Urine NEG (Negative); Cannabinoid Screen,Urine PRESUMPTIVE NEGATIVE; Cocaine Screen,Urine PRESUMPTIVE NEGATIVE; Color,Urine Yellow (Yellow); Methadone Screen,Urine PRESUMPTIVE NEGATIVE; Mucus,Urine 3+ /HPF; Opiate Screen,Urine PRESUMPTIVE NEGATIVE; Protein,Urine <15 mg/dL mg/dL (Negative); Urobilinogen,Urine < 2.0 mg/dL (<2.0)
[2019-03-22] MEDS ORDERED: XARELTO PO SCH (10:00)
[2019-03-22] MEDS ORDERED: SYNTHROID PO SCH (10:00)
[2019-03-22 12:31] LABS: Chol/HDL Ratio 2.69 %
[2019-03-22 13:55] VITALS: BP 137/81
--- NOTE | 2019-03-22 14:06 | Consultation ---
History of Present Illness - Reason for Consult Consult date: 03/22/19 Reason for consult: Mental Health Evaluation Requesting physician: GONZALO COPPOLA - Chief Complaint Chief complaint: "I am suicidal" - History of Present Psychiatric Illness 48 y.o. white female who presented to the ER for chest pain. Psychiatry was consulted because the patient endorsed SI's prior to being discharged from the ER. Today the patient was anxious during the assessment. She stated prior to her coming to the ER she got into a argument with a person at [place] her residence. She stated that she became anxious and suicidal after the argument. She rate her depression/anxiety 7/10, with 10 being the worse. She stated that she have attempted suicide in the past by overdosing on pills. She stated that she have not been complaint with her psy medication in several weeks (ZYprexa/Klonopin). She stated that she was dx with SCAD. She continued to endorse SI's, but would not confirm or deny a suicide plan when asked. She denies HI's and AVH's. She stated that she experience AH's "sometimes." She acknowledged erratic sleep, but denies a poor appetite. She denies recreational drug use and alcohol consumption (etoh). Medications and Allergies Allergies Allergy/AdvReac Type Severity Reaction Status Date / Time acetaminophen [From Lortab] Allergy Shortness Verified 02/12/19 14:14 of Breath aspirin Allergy Hives Verified 02/12/19 14:14 divalproex sodium Allergy Rash Verified 12/27/18 01:28 [From Depakote] hydrocodone [From Lortab] Allergy Hives Verified 02/12/19 14:14 latex Allergy Rash Verified 02/12/19 14:14 nut - unspecified Allergy Shortness Verified 02/12/19 14:14 of Breath oxycodone Allergy Hives Verified 02/12/19 14:14 Penicillins Allergy Rash Verified 12/26/18 18:35 propoxyphene Allergy Rash Verified 12/26/18 18:35 [From Darvocet-N] Sulfa (Sulfonamide Allergy Rash Verified 12/26/18 18:35 Antibiotics) dairy Allergy Diarrhea Uncoded 02/12/19 14:15 napsylate Allergy Hives Uncoded 02/12/19 14:14 Home Medications Medication Instructions Recorded Confirmed Last Taken Type Nitroglycerin [Nitrostat] 0.4 mg SL Q5MIN PRN MDD 3 12/20/18 03/21/19 02/18/19 History Spironolactone [Aldactone] 25 mg PO DAILY 12/20/18 03/21/19 02/19/19 History ARIPiprazole [Abilify] 30 mg PO DAILY 02/01/19 03/21/19 02/19/19 History Carvedilol [Coreg] 6.25 mg PO BID 02/01/19 03/21/19 02/18/19 History Levothyroxine [Synthroid] 125 mcg PO DAILY 02/01/19 03/21/19 02/19/19 History OLANzapine [ZyPREXA] 5 mg PO DAILY 02/01/19 03/21/19 02/18/19 History Pantoprazole [Protonix TAB] 40 mg PO DAILY 02/01/19 03/21/19 02/19/19 History clonazePAM [Klonopin] 1 mg PO TID 02/01/19 03/21/19 02/19/19 History Fluticasone [Flonase] 1 spray NS QDAY 02/19/19 03/21/19 02/19/19 History ALBUTEROL Inhaler (OR & NICU) 2 puff IH Q4-6H PRN #7 inha 02/20/19 03/21/19 Unknown Rx [ProAir HFA Inhaler] Fluticasone Propionate [Flovent 2 puff IH DAILY #7 aer.w.adap 02/20/19 03/21/19 Unknown Rx Hfa] Rivaroxaban [Xarelto] 10 mg PO DAILY tablet 02/20/19 03/21/19 Unknown Rx Dicyclomine [Bentyl] 10 mg PO QID PRN #10 capsule 03/01/19 03/21/19 Unknown Rx Furosemide [Lasix TAB] 40 mg PO QDAY #30 tablet 03/16/19 03/21/19 Unknown Rx Nystatin Oint [Mycostatin Oint] 1 applicatio TP BID #1 tube 03/16/19 03/21/19 Unknown Rx Potassium Chloride [K-Dur] 40 meq PO ONCE #60 tablet 03/16/19 03/21/19 Unknown Rx Rivaroxaban [Xarelto] 10 mg PO DAILY #30 tablet 03/16/19 03/21/19 Unknown Rx Active Meds: Active Medications Levothyroxine Sodium (Synthroid) 125 mcg PO DAILY AUGUSTIN Last Admin: 03/22/19 11:00 Dose: 125 mcg Documented by: Rivaroxaban (Xarelto) 10 mg PO DAILY [facility]; Protocol Last Admin: 03/22/19 11:00 Dose: 10 mg Documented by: Past psychiatric history - Past Medical History Past Medical History: atrial fib, COPD, other (DVT) Past Surgical History: tonsillectomy - past Psychiatric treatment and history psychiatric treatment history: Several inpatient psy settings. Denies a psy hx. Mental Status Exam - Vital signs Last Vital Signs Temp 98.0 F 03/22/19 13:00 Pulse 69 03/22/19 13:00 Resp 18 03/22/19 13:00 BP 137/81 03/22/19 13:00 Pulse Ox 99 03/22/19 13:00 Results Result Diagrams: 03/21/19 20:32 03/21/19 20:32 Abnormal lab results 03/21/19 03/21/19 03/21/19 Range/Units 20:32 20:32 20:32 MCH 27 L (28-32) pg RDW 15.6 H (13.2-15.2) % Seg Neutrophils % 70.7 H (40.0-70.0) % BUN 6 L (7-17) mg/dL Urine WBC (Auto) (0.0-6.0) /HPF Salicylates < 0.3 L (2.8-20.0) mg/dL Acetaminophen (10.0-30.0) ug/mL 03/21/19 03/22/19 Range/Units 20:32 01:18 MCH (28-32) pg RDW (13.2-15.2) % Seg Neutrophils % (40.0-70.0) % BUN (7-17) mg/dL Urine WBC (Auto) 12.0 H (0.0-6.0) /HPF Salicylates (2.8-20.0) mg/dL Acetaminophen < 5.0 L (10.0-30.0) ug/mL All other labs normal. Assessment and Plan Assessment and plan: Impression: Unspecified Mood DO. Unspecified Anxiety DO. Today the patient was anxious during the assessment. DDx: MDD, SCAD, Bipolar DO, Acute Stress DO Recommendation/Plan: Continue 1013. Dispo: The patient was accepted at [facility] Staffed with Dr Patricia Corbett.
== END 2019-03-22 14:00 | disposition other institution (70) ==
LOC: EEVIPCON 16:54 → ED 16:54
DX: F25.0 Schizoaffective disorder, bipolar type (principal); R45.851 Suicidal ideations; R07.89 Other chest pain; I11.0 Hypertensive heart disease with heart failure; I50.9 Heart failure, unspecified; E11.9 Type 2 diabetes mellitus without complications; E03.9 Hypothyroidism, unspecified; M54.9 Dorsalgia, unspecified; G89.29 Other chronic pain; E78.5 Hyperlipidemia, unspecified; F32.9 Major depressive disorder, single episode, unspecified; F41.9 Anxiety disorder, unspecified; I48.91 Unspecified atrial fibrillation; J44.9 Chronic obstructive pulmonary disease, unspecified; Z86.718 Personal history of other venous thrombosis and embolism; Z90.89 Acquired absence of other organs; Z79.899 Other long term (current) drug therapy; Z88.8 Allergy status to other drugs, medicaments and biological substances; Z88.6 Allergy status to analgesic agent; Z88.0 Allergy status to penicillin; Z88.5 Allergy status to narcotic agent; Z88.2 Allergy status to sulfonamides
CPT/HCPCS: 36415; 80053; 80061; 80307; 80320; 81001; 83036; 84703; 85025; 87086; 93005; 93010; G0480

== ENCOUNTER 2019-04-01 13:43 | Emergency (ER) | payer MEDICARE ==
[2019-04-01 14:51] VITALS: BP 129/84
--- NOTE | 2019-04-01 16:03 | Emergency Department Report ---
ED Female HPI - General Chief complaint: Urogenital-Female Stated complaint: PELVIC PAIN/BURNING WHEN URINATING Time Seen by Provider: 04/01/19 15:58 Source: patient Mode of arrival: Ambulatory Limitations: No Limitations - History of Present Illness Initial comments: Mrs. Pardo is a 48 yo female who presents with vaginal irritation for the past 2 days. Hurts to sit. Hurts to wipe. Not sexually active. MD Complaint: other (vaginal irritation) -: Gradual, days(s) (2) Location: labia Severity: mild Quality: burning Consistency: constant Worsens with: movement, bathing Are you Now?: No Associated Symptoms: denies other symptoms - Related Data Home Medications Medication Instructions Recorded Confirmed Last Taken Nitroglycerin [Nitrostat] 0.4 mg SL Q5MIN PRN MDD 3 12/20/18 03/21/19 02/18/19 Spironolactone [Aldactone] 25 mg PO DAILY 12/20/18 03/21/19 02/19/19 ARIPiprazole [Abilify] 30 mg PO DAILY 02/01/19 03/21/19 02/19/19 Carvedilol [Coreg] 6.25 mg PO BID 02/01/19 03/21/19 02/18/19 Levothyroxine [Synthroid] 125 mcg PO DAILY 02/01/19 03/21/19 02/19/19 OLANzapine [ZyPREXA] 5 mg PO DAILY 02/01/19 03/21/19 02/18/19 Pantoprazole [Protonix TAB] 40 mg PO DAILY 02/01/19 03/21/19 02/19/19 clonazePAM [Klonopin] 1 mg PO TID 02/01/19 03/21/19 02/19/19 Fluticasone [Flonase] 1 spray NS QDAY 02/19/19 03/21/19 02/19/19 Previous Rx's Medication Instructions Recorded Last Taken Type ALBUTEROL Inhaler (OR & NICU) 2 puff IH Q4-6H PRN #7 inha 02/20/19 Unknown Rx [ProAir HFA Inhaler] Fluticasone Propionate [Flovent 2 puff IH DAILY #7 aer.w.adap 02/20/19 Unknown Rx Hfa] Rivaroxaban [Xarelto] 10 mg PO DAILY tablet 02/20/19 Unknown Rx Dicyclomine [Bentyl] 10 mg PO QID PRN #10 capsule 03/01/19 Unknown Rx Furosemide [Lasix TAB] 40 mg PO QDAY #30 tablet 03/16/19 Unknown Rx Nystatin Oint [Mycostatin Oint] 1 applicatio TP BID #1 tube 03/16/19 Unknown Rx Potassium Chloride [K-Dur] 40 meq PO ONCE #60 tablet 03/16/19 Unknown Rx Rivaroxaban [Xarelto] 10 mg PO DAILY #30 tablet 03/16/19 Unknown Rx Fluconazole [Diflucan TAB] 150 mg PO ONCE #1 tablet 04/01/19 Unknown Rx Miconazole/Cleanser 17 On Wipe 1 each VG QHS 7 Days #1 kit 04/01/19 Unknown Rx [Monistat 7 Combination Pack] metroNIDAZOLE [Flagyl] 500 mg PO Q12HR 7 Days #14 tab 04/01/19 Unknown Rx Allergies Allergy/AdvReac Type Severity Reaction Status Date / Time acetaminophen [From Lortab] Allergy Shortness Verified 02/12/19 14:14 of Breath aspirin Allergy Hives Verified 02/12/19 14:14 divalproex sodium Allergy Rash Verified 12/27/18 01:28 [From Depakote] hydrocodone [From Lortab] Allergy Hives Verified 02/12/19 14:14 latex Allergy Rash Verified 02/12/19 14:14 nut - unspecified Allergy Shortness Verified 02/12/19 14:14 of Breath oxycodone Allergy Hives Verified 02/12/19 14:14 Penicillins Allergy Rash Verified 12/26/18 18:35 propoxyphene Allergy Rash Verified 12/26/18 18:35 [From Darvocet-N] Sulfa (Sulfonamide Allergy Rash Verified 12/26/18 18:35 Antibiotics) dairy Allergy Diarrhea Uncoded 02/12/19 14:15 napsylate Allergy Hives Uncoded 02/12/19 14:14 ED Review of Systems ROS: Stated complaint: PELVIC PAIN/BURNING WHEN URINATING Other details as noted in HPI Constitutional: denies: fever, malaise Gastrointestinal: denies: abdominal pain, vomiting Genitourinary: denies: urgency, frequency, discharge, abnormal menses Skin: denies: rash, lesions ED Past Medical Hx - Past Medical History Previous Medical History?: Yes Hx Hypertension: Yes Hx Congestive Heart Failure: Yes Hx Diabetes: Yes Hx Deep Vein Thrombosis: Yes Hx Psychiatric Treatment: Yes (Bipolar Depressed schizo affective, anxiety) Hx Asthma: Yes Hx COPD: No Additional medical history: Hypothyroidism, sleep apnea, DVT, Chronic Back pain, Gastritis, IBS. Hyperlipidemia, Ovarian cyst. Stubbs's palsey - Surgical History Past Surgical History?: Yes Hx Cholecystectomy: Yes Additional Surgical History: Tonsilectomy, Uterine Ablation, Hernia repair, D&C. 2 molar pulled. stiched to nasal cavity. Right Rotator cuff repair. - Social History Smoking Status: Never Smoker Substance Use Type: None - Medications Home Medications: Home Medications Medication Instructions Recorded Confirmed Last Taken Type Nitroglycerin [Nitrostat] 0.4 mg SL Q5MIN PRN MDD 3 12/20/18 03/21/19 02/18/19 History Spironolactone [Aldactone] 25 mg PO DAILY 12/20/18 03/21/19 02/19/19 History ARIPiprazole [Abilify] 30 mg PO DAILY 02/01/19 03/21/19 02/19/19 History Carvedilol [Coreg] 6.25 mg PO BID 02/01/19 03/21/19 02/18/19 History Levothyroxine [Synthroid] 125 mcg PO DAILY 02/01/19 03/21/19 02/19/19 History OLANzapine [ZyPREXA] 5 mg PO DAILY 02/01/19 03/21/19 02/18/19 History Pantoprazole [Protonix TAB] 40 mg PO DAILY 02/01/19 03/21/19 02/19/19 History clonazePAM [Klonopin] 1 mg PO TID 02/01/19 03/21/19 02/19/19 History Fluticasone [Flonase] 1 spray NS QDAY 02/19/19 03/21/19 02/19/19 History ALBUTEROL Inhaler (OR & NICU) 2 puff IH Q4-6H PRN #7 inha 02/20/19 03/21/19 Unknown Rx [ProAir HFA Inhaler] Fluticasone Propionate [Flovent 2 puff IH DAILY #7 aer.w.adap 02/20/19 03/21/19 Unknown Rx Hfa] Rivaroxaban [Xarelto] 10 mg PO DAILY tablet 02/20/19 03/21/19 Unknown Rx Dicyclomine [Bentyl] 10 mg PO QID PRN #10 capsule 03/01/19 03/21/19 Unknown Rx Furosemide [Lasix TAB] 40 mg PO QDAY #30 tablet 03/16/19 03/21/19 Unknown Rx Nystatin Oint [Mycostatin Oint] 1 applicatio TP BID #1 tube 03/16/19 03/21/19 Unknown Rx Potassium Chloride [K-Dur] 40 meq PO ONCE #60 tablet 03/16/19 03/21/19 Unknown Rx Rivaroxaban [Xarelto] 10 mg PO DAILY #30 tablet 03/16/19 03/21/19 Unknown Rx Fluconazole [Diflucan TAB] 150 mg PO ONCE #1 tablet 04/01/19 Unknown Rx Miconazole/Cleanser 17 On Wipe 1 each VG QHS 7 Days #1 kit 04/01/19 Unknown Rx [Monistat 7 Combination Pack] metroNIDAZOLE [Flagyl] 500 mg PO Q12HR 7 Days #14 tab 04/01/19 Unknown Rx ED Physical Exam - General Limitations: No Limitations General appearance: alert, in no apparent distress - Head Head exam: Present: atraumatic - Respiratory Respiratory exam: Absent: respiratory distress - Neurological Exam Neurological exam: Present: alert, oriented X3 - Psychiatric Psychiatric exam: Present: normal affect, normal mood - Skin Skin exam: Present: warm, dry, intact, normal color ED Course Vital Signs 04/01/19 14:50 Temperature 98.5 F Pulse Rate 79 Respiratory 18 Rate Blood Pressure 129/84 O2 Sat by Pulse 95 Oximetry ED Medical Decision Making - Medical Decision Making Vaginitis empiric therapy with fluconazole Monistat and metronidazole prescriptions Critical care attestation.: If time is entered above; I have spent that time in minutes in the direct care of this critically ill patient, excluding procedure time. ED Disposition Clinical Impression: Vaginitis Disposition: DC-01 TO HOME OR SELFCARE Is pt being admited?: No Does the pt Need Aspirin: No Condition: Stable Instructions: Vaginitis (ED) Prescriptions: Miconazole/Cleanser 17 On Wipe [Monistat 7 Combination Pack] 1 each VG QHS 7 Days #1 kit Fluconazole [Diflucan TAB] 150 mg PO ONCE #1 tablet metroNIDAZOLE [Flagyl] 500 mg PO Q12HR 7 Days #14 tab Referrals: LESLYE MARSHALL MD [Primary Care Provider] - 3-5 Days
[2019-04-01 16:24] LABS: Bilirubin,Urine NEG (Negative); Blood,Urine NEG (Negative); Color,Urine Straw (Yellow); Mucus,Urine FEW /HPF; Protein,Urine <15 mg/dL mg/dL (Negative); Urobilinogen,Urine < 2.0 mg/dL (<2.0)
[2019-04-01 16:46] LABS: HCG Qualitative,Urine Negative (Negative)
== END 2019-04-01 16:15 | disposition home or self-care (01) ==
LOC: ED 13:43
DX: N76.0 Acute vaginitis (principal); B96.89 Other specified bacterial agents as the cause of diseases classified elsewhere; I11.0 Hypertensive heart disease with heart failure; I50.9 Heart failure, unspecified; E11.9 Type 2 diabetes mellitus without complications; F31.9 Bipolar disorder, unspecified; F41.9 Anxiety disorder, unspecified; F25.9 Schizoaffective disorder, unspecified; J45.909 Unspecified asthma, uncomplicated; E03.9 Hypothyroidism, unspecified; G47.30 Sleep apnea, unspecified; E78.5 Hyperlipidemia, unspecified; M54.9 Dorsalgia, unspecified; G89.29 Other chronic pain; G51.0 Bell's palsy; Z86.718 Personal history of other venous thrombosis and embolism; Z90.49 Acquired absence of other specified parts of digestive tract; Z90.89 Acquired absence of other organs; Z98.890 Other specified postprocedural states; Z88.6 Allergy status to analgesic agent; Z88.8 Allergy status to other drugs, medicaments and biological substances; Z79.899 Other long term (current) drug therapy; Z91.040 Latex allergy status; Z88.0 Allergy status to penicillin; Z91.011 Allergy to milk products; Z91.010 Allergy to peanuts
CPT/HCPCS: 81001; 81025; 99283

== ENCOUNTER 2019-04-05 19:52 | Emergency (ER) | payer MEDICARE ==
[2019-04-05] MEDS ORDERED: DECADRON IM ONE (20:17)
[2019-04-05] MEDS ORDERED: PEPCID PO ONE (20:17)
[2019-04-05] MEDS ORDERED: BENADRYL PO ONE ×2 (20:17→22:32)
--- NOTE | 2019-04-05 20:17 | Event Note ---
ED Screening Note ED Screening Note: pt presents with bilateral hands that began 30 minutes ago edema, pain, and redness denies having before no fall or injury did not take anything for it This initial assessment/diagnostic orders/clinical plan/treatment(s) is/are subject to change based on patients health status, clinical progression and re- assessment by fellow clinical providers in the ED. Further treatment and workup at subsequent clinical providers discretion. Patient/guardian urged not to elope from the ED as their condition may be serious if not clinically assessed and managed. Initial orders include: meds
[2019-04-05 20:19] VITALS: BP 139/79
[2019-04-05] MEDS ORDERED: DECADRON ONE (22:32)
[2019-04-05] MEDS ORDERED: PEPCID ONE (22:32)
--- NOTE | 2019-04-05 22:46 | Emergency Department Report ---
ED Rash HPI - HPI Chief Complaint: Extremity Injury, Upper Stated Complaint: SWELLING IN HANDS Time Seen by Provider: 04/05/19 20:16 Suspected Cause: Unknown Rash Symptoms: Yes Itching, No Facial Swelling, No Tongue/Oral Swelling, No Breathing Difficulties, No Choking Sensation, No Wheezing/Dyspnea, No Peeling, No Blistering, No Fever, No Lightheaded, No Malaise, No Myalgias Severity: moderate Other History: pt presents with bilateral hand itching redness rash, and swelling, that began 30 minutes ago denies hx of same, there has been no fall injury or trauma there no open wound weeping or deformity. ED Review of Systems ROS: Stated complaint: SWELLING IN HANDS Other details as noted in HPI Constitutional: denies: chills, fever Eyes: as per HPI ENT: denies: ear pain, throat pain Respiratory: denies: cough, shortness of breath, wheezing Cardiovascular: denies: chest pain, palpitations Endocrine: no symptoms reported Gastrointestinal: denies: abdominal pain, nausea, diarrhea Genitourinary: denies: urgency, dysuria, discharge Musculoskeletal: denies: back pain, joint swelling, arthralgia Skin: rash (dorsal hand erythema itching ) Neurological: denies: headache, weakness, paresthesias Psychiatric: denies: anxiety, depression Hematological/Lymphatic: denies: easy bleeding, easy bruising ED Past Medical Hx - Past Medical History Previous Medical History?: Yes Hx Hypertension: Yes Hx Congestive Heart Failure: Yes Hx Diabetes: Yes Hx Deep Vein Thrombosis: Yes Hx Psychiatric Treatment: Yes (Bipolar Depressed schizo affective, anxiety) Hx Asthma: Yes Hx COPD: No Additional medical history: Hypothyroidism, sleep apnea, DVT, Chronic Back pain, Gastritis, IBS. Hyperlipidemia, Ovarian cyst. Stubbs's palsey - Surgical History Past Surgical History?: Yes Hx Cholecystectomy: Yes Additional Surgical History: Tonsilectomy, Uterine Ablation, Hernia repair, D&C. 2 molar pulled. stiched to nasal cavity. Right Rotator cuff repair. - Social History Smoking Status: Never Smoker Substance Use Type: None - Medications Home Medications: Home Medications Medication Instructions Recorded Confirmed Last Taken Type Nitroglycerin [Nitrostat] 0.4 mg SL Q5MIN PRN MDD 3 12/20/18 03/21/19 02/18/19 History Spironolactone [Aldactone] 25 mg PO DAILY 12/20/18 03/21/19 02/19/19 History ARIPiprazole [Abilify] 30 mg PO DAILY 02/01/19 03/21/19 02/19/19 History Carvedilol [Coreg] 6.25 mg PO BID 02/01/19 03/21/19 02/18/19 History Levothyroxine [Synthroid] 125 mcg PO DAILY 02/01/19 03/21/19 02/19/19 History OLANzapine [ZyPREXA] 5 mg PO DAILY 02/01/19 03/21/19 02/18/19 History Pantoprazole [Protonix TAB] 40 mg PO DAILY 02/01/19 03/21/19 02/19/19 History clonazePAM [Klonopin] 1 mg PO TID 02/01/19 03/21/19 02/19/19 History Fluticasone [Flonase] 1 spray NS QDAY 02/19/19 03/21/19 02/19/19 History ALBUTEROL Inhaler (OR & NICU) 2 puff IH Q4-6H PRN #7 inha 02/20/19 03/21/19 Unknown Rx [ProAir HFA Inhaler] Fluticasone Propionate [Flovent 2 puff IH DAILY #7 aer.w.adap 02/20/19 03/21/19 Unknown Rx Hfa] Rivaroxaban [Xarelto] 10 mg PO DAILY tablet 02/20/19 03/21/19 Unknown Rx Dicyclomine [Bentyl] 10 mg PO QID PRN #10 capsule 03/01/19 03/21/19 Unknown Rx Furosemide [Lasix TAB] 40 mg PO QDAY #30 tablet 03/16/19 03/21/19 Unknown Rx Nystatin Oint [Mycostatin Oint] 1 applicatio TP BID #1 tube 03/16/19 03/21/19 Unknown Rx Potassium Chloride [K-Dur] 40 meq PO ONCE #60 tablet 03/16/19 03/21/19 Unknown Rx Rivaroxaban [Xarelto] 10 mg PO DAILY #30 tablet 03/16/19 03/21/19 Unknown Rx Fluconazole [Diflucan TAB] 150 mg PO ONCE #1 tablet 04/01/19 Unknown Rx Miconazole/Cleanser 17 On Wipe 1 each VG QHS 7 Days #1 kit 04/01/19 Unknown Rx [Monistat 7 Combination Pack] metroNIDAZOLE [Flagyl] 500 mg PO Q12HR 7 Days #14 tab 04/01/19 Unknown Rx Famotidine [Pepcid] 20 mg PO BID 7 Days #14 tablet 04/05/19 Unknown Rx Ibuprofen [Motrin 800 MG tab] 800 mg PO Q8HR PRN #30 tablet 04/05/19 Unknown Rx Triamcinolone Aceton 0.1% (Nf) 1 applic TP BID 14 Days #1 tube 04/05/19 Unknown Rx [Kenalog (NF)] diphenhydrAMINE [Benadryl CAP] 25 mg PO Q6HR PRN #30 capsule 04/05/19 Unknown Rx predniSONE [Deltasone] 40 mg PO QDAY 5 Days #10 tab 04/05/19 Unknown Rx Rash Exam - Exam General: Vital signs noted. No distress. Alert and acting appropriately. HEENT: No Periorbital Edema, No Conjuctival Injection, No Chemosis, No Perioral Edema, No Tongue Edema, No Uvular Edema, No Compromised Airway, No Drooling Lungs: Yes Good Air Exchange (Normal Breath Sounds), No Wheezes, No Ronchi, No Stridor, No Cough, No Labored Respirations, No Retractions, No Use of Accessory Muscles, No Other Abnormal Lung Sounds Heart: Yes Regular, No Murmur Skin: Yes Urticarial Rash, Yes Erythema Other: Positive: Abdomen Normal, Neurologic Normal, Musculoskeletal Normal ED Course Vital Signs 04/05/19 20:16 Temperature 98 F Pulse Rate 75 Respiratory 16 Rate Blood Pressure 139/79 O2 Sat by Pulse 98 Oximetry ED Medical Decision Making - Medical Decision Making this is a contact dermatitis plan, symptoms resolve with medications given in ed plan:dc with rx for benadryl pepcid, prednisone , triamcinolone ointment follow up with pcp in 2-3 days. Critical care attestation.: If time is entered above; I have spent that time in minutes in the direct care of this critically ill patient, excluding procedure time. ED Disposition Clinical Impression: Contact dermatitis Qualifiers: Contact dermatitis type: allergic Contact dermatitis trigger: unspecified trigger Qualified Code(s): L23.9 - Allergic contact dermatitis, unspecified cause Disposition: DC-01 TO HOME OR SELFCARE Is pt being admited?: No Does the pt Need Aspirin: No Condition: Stable Instructions: Contact Dermatitis (ED) Prescriptions: diphenhydrAMINE [Benadryl CAP] 25 mg PO Q6HR PRN #30 capsule PRN Reason: Itching predniSONE [Deltasone] 40 mg PO QDAY 5 Days #10 tab Triamcinolone Aceton 0.1% (Nf) [Kenalog (NF)] 1 applic TP BID 14 Days #1 tube Ibuprofen [Motrin 800 MG tab] 800 mg PO Q8HR PRN #30 tablet PRN Reason: pain fever Famotidine [Pepcid] 20 mg PO BID 7 Days #14 tablet Referrals: [facility] [Outside] - 3-5 Days Forms: Work/School Release Form(ED) Time of Disposition: 22:52
== END 2019-04-05 23:20 | disposition home or self-care (01) ==
LOC: ED 19:52
DX: L25.9 Unspecified contact dermatitis, unspecified cause (principal); I11.0 Hypertensive heart disease with heart failure; I50.9 Heart failure, unspecified; J45.909 Unspecified asthma, uncomplicated; F31.9 Bipolar disorder, unspecified; F20.9 Schizophrenia, unspecified; F41.9 Anxiety disorder, unspecified; E03.9 Hypothyroidism, unspecified; E78.00 Pure hypercholesterolemia, unspecified; Z86.718 Personal history of other venous thrombosis and embolism; Z90.49 Acquired absence of other specified parts of digestive tract; Z79.899 Other long term (current) drug therapy; Z88.6 Allergy status to analgesic agent; Z88.8 Allergy status to other drugs, medicaments and biological substances
CPT/HCPCS: 96372; 99282; J1100

== ENCOUNTER 2019-09-10 12:15 | Inpatient (IN) | payer MEDICARE ==
[2019-09-10] MEDS ORDERED: clonazePAM 0.5 MG TAB PO PRN (16:16)
--- NOTE | 2019-09-10 16:16 | History and Physical Report ---
GP History & Physical - History of Present Illness Date of admission: 09/10/19 Reason for Admission: Danger to self Chief Complaint: suicidal ideation, hallucinations, anxiety History of Present Illness: Aneta Live is a 49y/o patient who states she was admitted for suicidal ideation, and hallucinations. The patient is dressed appropriately. She has good hygiene. She makes good eye contact. She appears very anxious. She is jumpy and fidgety. She says she has "severe anxiety." The patient says she's attempted suicide "a lot of times" in the past, with her last time being "overdose on nitro." She says right now she's suicidal "a little bit, but doesn't have a plan." The patient says she has been admitted "all my life" for psych disorders. She says she has a history of "biplar, schizoaffective, and anxiety." She says she she hears "voices of her father telling me I'm not going to make it." She says she's afraid of "Mando being out to get me." The patient says he is her "caregiver's and he begs me for money ands says things like; I'm going to spank you." The patient denies any elicit drug use, alcohol or nicotine use. She says her appetite is "not well." PAST PSYCHIATRIC HISTORY: Diagnoses: schizoaffective, biplar, anxiety Suicide attempts or Self-harm behavior: "a lot of times" Prior psychiatric hospitalizations: "all my life" Substance Abuse history: Denies Previous psychiatric medications tried: Zyprexia, Klonopin, Cogentin, Risperidone, Abilify Vistaril Outpatient treatment: Yes PAST MEDICAL HISTORY: none reported Family Psychiatric History None reported or documented SOCIAL HISTORY Marital Status: Single Living Arrangements: At transitional housing Employment Status: Disabled Access to guns/weapons: Denies Education: some college History of Abuse: Denies Legal History: Denies REVIEW OF SYSTEMS Constitutional: Negative for weight loss ENT: Negative for stridor Respiratory: Negative for cough or hemoptysis All other systems reviewed and are negative MSE Appearance: Dressed appropriately. Behavior: Fidgety, jumpy, cooperative Mood: "anxious" Affect: Congruent Thought Process: Goal directed Speech: Normal tone and pace Thought Content Suicidal: Yes Homicidal: Denies Hallucinations: Visual Delusions: None elicited Consciousness: Alert Cognition/Memory: Fair Insight/Judgment: Fair Assessment: Schizoaffective Disorder Plan Treatment Plan Due to the psychiatric conditions and treatment listed in the Assessment and Plan - the patient requires continued hospitalization. Will continue inpatient treatment to allow for medication adjustment and monitoring. Will continue q15 min safety checks. Will encourage the use of environmental modifications and non-pharmacologic approaches for the management of behavioral and psychological symptoms. Medication adjustments: Risperidone 0.25mg po daily Doxepin 10mg po QHS Buspar 5mg po BID Lexapro 5mg po daily Vistaril 50mg IM q6h anxiety Geodon 10mg q4h prn agitation Will continue current psych medications Monitor for medication side effects. The patient will continue on medications for physical illnesses, and Hospitalist will closely monitor these Continue intensive physical and occupational therapies. Monitor patient's mood, sleep, appetite, and behavior closely. Encourage patient to participate in individual and group therapeutic sessions on the miranda. Will provide a safe and therapeutic environment for patient. RONEY 7 days Plan for post-hospital care: [ out-patient ] Legal Status: Voluntary Reaction to Hospitalization: Accepting Medications and Allergies Allergies Allergy/AdvReac Type Severity Reaction Status Date / Time acetaminophen [From Lortab] Allergy Shortness Verified 02/12/19 14:14 of Breath aspirin Allergy Hives Verified 02/12/19 14:14 divalproex sodium Allergy Rash Verified 12/27/18 01:28 [From Depakote] hydrocodone [From Lortab] Allergy Hives Verified 02/12/19 14:14 latex Allergy Rash Verified 02/12/19 14:14 nut - unspecified Allergy Shortness Verified 02/12/19 14:14 of Breath oxycodone Allergy Hives Verified 02/12/19 14:14 Penicillins Allergy Rash Verified 12/26/18 18:35 propoxyphene Allergy Rash Verified 12/26/18 18:35 [From Darvocet-N] Sulfa (Sulfonamide Allergy Rash Verified 12/26/18 18:35 Antibiotics) dairy Allergy Diarrhea Uncoded 02/12/19 14:15 napsylate Allergy Hives Uncoded 02/12/19 14:14 Home Medications Medication Instructions Recorded Confirmed Last Taken Type OLANzapine [ZyPREXA] 5 mg PO QHS 02/01/19 09/09/19 08/27/19 13:00 History Benztropine [Cogentin] 0.5 mg PO BID 09/09/19 09/09/19 09/09/19 13:00 History Fluticasone [Flonase] 1 spray NS QDAY 09/09/19 09/09/19 Unknown History Furosemide [Lasix TAB] 40 mg PO QDAY 09/09/19 09/09/19 Unknown History Potassium Chloride [K-Dur] 10 meq PO QDAY 09/09/19 09/09/19 09/09/19 13:00 History Propranolol [Inderal] 10 mg PO BID 09/09/19 09/09/19 09/09/19 13:00 History Simvastatin 5 mg PO QHS 09/09/19 09/09/19 Unknown History clonazePAM 0.5 mg PO BID PRN 09/09/19 09/09/19 Unknown History hydrOXYzine HCL [Atarax] 25 mg PO TID 09/09/19 09/09/19 Unknown History Physician Certification - Certification Statement Physician Certification Statement: This is an acknowledgement statement that ANETA LIVE is a 49 year old F who requires inpatient psychiatric admission for treatment which could reasonably be expected to improve the patient's condition for Estimated period of time patient will need to remain in the hospital: [ ] Plan for post-hospital care: [ ]
[2019-09-10] MEDS ORDERED: hydrOXYzine HCL 100 MG/2 ML INJ IM PRN (16:20)
[2019-09-10] MEDS ORDERED: ZIPRASIDONE MESYLATE 20 MG VIAL IM PRN (16:27)
[2019-09-10 16:28] LABS: Basophils # (Auto) 0.1 K/mm3 (0.0-0.1); Basophils % (Auto) 0.7 % (0.0-1.8); Eosinophils # (Auto) 0.1 K/mm3 (0.0-0.4); Eosinophils % (Auto) 1.5 % (0.0-4.3); Hematocrit 42.3 % (30.3-42.9); Hemoglobin 13.9 gm/dl (10.1-14.3); Lymphocytes # (Auto) 1.7 K/mm3 (1.2-5.4); Lymphocytes % (Auto) 23.3 % (13.4-35.0); Mean Corpuscular HGB Conc 33 % (30-34); Mean Corpuscular Volume 84 fl (79-97); Monocytes # (Auto) 0.4 K/mm3 (0.0-0.8); Monocytes % (Auto) 5.4 % (0.0-7.3); Platelet Count 261 K/mm3 (140-440); Red Blood Count 5.06 M/mm3 (3.65-5.03); Red Cell Distribution Width 14.9 % (13.2-15.2)
[2019-09-10 16:43] LABS: Alanine Aminotransferase 11 units/L (7-56); Albumin 4.2 g/dL (3.9-5); BUN/Creatinine Ratio 13; Blood Urea Nitrogen 8 mg/dL (7-17); Calcium 9.4 mg/dL (8.4-10.2); Chol/HDL Ratio 3.42 %; HDL Cholesterol 56 mg/dL (40-59); Hemolysis Index 5; LDL Cholesterol,Direct 121 mg/dL (50-130)
--- NOTE | 2019-09-10 18:33 | Consultation ---
History of Present Illness - Reason for Consult Consult date: 09/10/19 Requesting physician: JHONNY AGUILERA - History of Present Illness 49 YO Female with Bipolar, Schizoaffective Disorder, Asthma, Hypothyroidism, ANUP, Diastolic CHF, HLD, [place] Palsy, Paroxysmal Atrial Fib, DVT on therapeutic anticoagulation with Xarelto but is noncompliant with therapy, IBS, Gastritis, admitted to geriatric psychiatry unit for psychiatric stabilization. Consult placed for medical management. Patient seen and evaluated in her room. Patient is cooperative with exam and interview. Patient denies fever, chills, chest pain, palpitation, productive cough, skin rash, recent ill contacts. No reported nursing events. Past History Past Medical History: other (See HPI) Past Surgical History: cholecystectomy, hernia repair, tonsillectomy Social history: single. denies: smoking, alcohol abuse, prescription drug abuse Family history: hypertension Medications and Allergies Allergies Allergy/AdvReac Type Severity Reaction Status Date / Time acetaminophen [From Lortab] Allergy Shortness Verified 02/12/19 14:14 of Breath aspirin Allergy Hives Verified 02/12/19 14:14 divalproex sodium Allergy Rash Verified 12/27/18 01:28 [From Depakote] hydrocodone [From Lortab] Allergy Hives Verified 02/12/19 14:14 latex Allergy Rash Verified 02/12/19 14:14 nut - unspecified Allergy Shortness Verified 02/12/19 14:14 of Breath oxycodone Allergy Hives Verified 02/12/19 14:14 Penicillins Allergy Rash Verified 12/26/18 18:35 propoxyphene Allergy Rash Verified 12/26/18 18:35 [From Darvocet-N] Sulfa (Sulfonamide Allergy Rash Verified 12/26/18 18:35 Antibiotics) dairy Allergy Diarrhea Uncoded 02/12/19 14:15 napsylate Allergy Hives Uncoded 02/12/19 14:14 Home Medications Medication Instructions Recorded Confirmed Last Taken Type OLANzapine [ZyPREXA] 5 mg PO QHS 02/01/19 09/09/19 08/27/19 13:00 History Benztropine [Cogentin] 0.5 mg PO BID 09/09/19 09/09/19 09/09/19 13:00 History Fluticasone [Flonase] 1 spray NS QDAY 09/09/19 09/09/19 Unknown History Furosemide [Lasix TAB] 40 mg PO QDAY 09/09/19 09/09/19 Unknown History Potassium Chloride [K-Dur] 10 meq PO QDAY 09/09/19 09/09/19 09/09/19 13:00 History Propranolol [Inderal] 10 mg PO BID 09/09/19 09/09/19 09/09/19 13:00 History Simvastatin 5 mg PO QHS 09/09/19 09/09/19 Unknown History clonazePAM 0.5 mg PO BID PRN 09/09/19 09/09/19 Unknown History hydrOXYzine HCL [Atarax] 25 mg PO TID 09/09/19 09/09/19 Unknown History Active Meds: Active Medications Benztropine Mesylate (Cogentin) 0.5 mg PO BID AUGUSTIN Buspirone HCl (Buspar) 5 mg PO BID AUG[place]IN Clonazepam (Klonopin) 0.5 mg PO BID PRN PRN Reason: Anxiety Doxepin HCl (Sinequan) 10 mg PO QHS AUGUSTIN Escitalopram Oxalate (Lexapro) 5 mg PO QDAY AUGUSTIN Furosemide (Lasix) 40 mg PO QDAY AUG[place]IN Hydroxyzine HCl (Vistaril) 50 mg IM Q6H PRN PRN Reason: Anxiety Olanzapine (Zyprexa) 5 mg PO QHS [place]IN Potassium Chloride (K-Dur) 10 meq PO QDAY A[place]IN Pravastatin Sodium (Pravachol) 10 mg PO QHS AUG[place]IN Propranolol HCl (Inderal) 10 mg PO BID [place]IN Risperidone (Risperdal) 0.25 mg PO DAILY A[place]IN Ziprasidone (Geodon) 10 mg IM Q4H PRN PRN Reason: Agitation Review of Systems Constitutional: no weight loss, no weight gain, no fever, no sweats Ears, nose, mouth and throat: no ear pain, no tinnitis, no nose pain, no nasal congestion, no nasal discharge Cardiovascular: no chest pain, no palpitations, no rapid/irregular heart beat, no syncope Respiratory: no cough with sputum, no hemoptysis, no shortness of breath Gastrointestinal: no nausea, no vomiting, no diarrhea, no change in bowel habits, no hematemesis Genitourinary Female: no pelvic pain, no flank pain, no menorrhagia, no urgency, no post void dribbling, no urge incontinence Rectal: no pain, no incontinence, no bleeding Musculoskeletal: no neck pain, no arm numbness/tingling, no shooting leg pain, no leg numbness/tingling Integumentary: no rash, no pruritis, no redness, no sores, no wounds Neurological: no head injury, no weakness, no parathesias, no tingling, no ataxia Psychiatric: no anxiety, no insomnia, no change in libido, no hallucinations Endocrine: no cold intolerance, no polyphagia, no excessive thirst Hematologic/Lymphatic: no easy bruising, no easy bleeding, no lymphadenopathy, no lymphedema Exam - Constitutional General appearance: Present: no acute distress, well-nourished - EENT Eyes: Present: PERRL ENT: hearing intact, clear oral mucosa - Neck Neck: Present: supple, normal ROM - Respiratory Respiratory effort: normal Respiratory: bilateral: CTA - Cardiovascular Heart Sounds: Present: S1 & S2. Absent: rub, click - Extremities Extremities: pulses symmetrical, No edema Peripheral Pulses: within normal limits - Abdominal General gastrointestinal: Present: soft, non-tender, non-distended, normal bowel sounds Female genitourinary: Present: normal - Integumentary Integumentary: Present: clear, warm, dry - Musculoskeletal Musculoskeletal: gait normal, strength equal bilaterally - Psychiatric Psychiatric: appropriate mood/affect, intact judgment & insight - Neurologic Neurologic: CNII-XII intact, moves all extremities Results - Labs CBC & Chem 7: 09/10/19 14:58 09/10/19 14:58 Labs: Abnormal lab results 09/10/19 09/10/19 Range/Units 14:58 14:58 RBC 5.06 H (3.65-5.03) M/mm3 Creatinine 0.6 L (0.7-1.2) mg/dL Assessment and Plan - Patient Problems (1) Paroxysmal atrial fibrillation Current Visit: Yes Status: Acute Plan to address problem: Continue therapeutic anticoagulation, continue propanolol for rate control, supportive care (2) Hyperlipidemia Current Visit: Yes Status: Acute Qualifiers: Hyperlipidemia type: mixed hyperlipidemia Qualified Code(s): E78.2 - Mixed hyperlipidemia Plan to address problem: Low-fat low-cholesterol diet, risk factor reduction, increase physical activity at discharge. (3) CHF (congestive heart failure) Current Visit: Yes Status: Acute Qualifiers: Heart failure chronicity: chronic Plan to address problem: Compensated at this time. Continue diuretic therapy with Lasix, continue beta- ana therapy, supportive care. (4) Hypothyroidism Current Visit: Yes Status: Acute Qualifiers: Hypothyroidism type: acquired Qualified Code(s): E03.9 - Hypothyroidism, unspecified Plan to address problem: Supportive care, thyroid panel reviewed normal. (5) Atrial fibrillation Current Visit: No Status: Acute Qualifiers: Atrial fibrillation type: paroxysmal Qualified Code(s): I48.0 - Paroxysmal atrial fibrillation Plan to address problem: Paroxysmal atrial fibrillation: Continue therapeutic anticoagulation, rate control with propanolol, supportive care. Patient currently normal sinus rhythm.
[2019-09-10] MEDS ORDERED: FLU VACC QUAD 2019-20 (3 YR UP)/PF 60 MCG/0.5 ML SYRINGE IM ONE (18:37)
[2019-09-10] MEDS ORDERED: hydrOXYzine HCL 25 MG TAB PO SCH (20:00)
[2019-09-10] MEDS: RIVAROXABAN 10 MG TAB PO SCH (21:32)
[2019-09-10] MEDS: BENZTROPINE 0.5 MG TAB PO SCH (21:33)
[2019-09-10] MEDS: busPIRone 5 MG TAB PO SCH (21:33)
[2019-09-10] MEDS: DOXEPIN 10 MG CAP PO SCH (21:34)
[2019-09-10] MEDS: PROPRANOLOL 10 MG TAB PO SCH (21:34)
[2019-09-10] MEDS: PRAVASTATIN 20 MG TAB PO SCH (21:35)
[2019-09-10] MEDS ORDERED: SIMVASTATIN 5 MG PO SCH ×3 (22:00)
--- NOTE | 2019-09-11 08:06 | Progress Note ---
Subjective Date of service: 09/11/19 Principal diagnosis: Schizoaffective Disorder, Depressive Type Subjective Comment: I reviewed the patient's medical records and discussed the patient's progress with the nursing staff. The nurse note states the patient is medication compliant, good appetite, able to make needs known, calm and cooperative,denies SI/HI, auditory hallucination, stated that she can not understand what voices are saying, self care, steady gait, denies pain, slept approximately 6hrs plus. During my interview with the patient this morning, she is lying in the bed. She raises up quickly when I enter the room. She is a/o x 3. She makes good eye contact. She is dressed appropriately. Her affect is congruent. The patient states she her "anxiety is a lot better today." She says her "mood is okay." She says she "slept well." The patient says she's been "thinking about her dad and feel at times I'd be better off ." She says her appetite is "getting better." She denies hallucinations at this time, but says "early this morning." The patient says they were "voices of her father." REVIEW OF SYSTEMS Constitutional: Negative for weight loss ENT: Negative for stridor Respiratory: Negative for cough or hemoptysis All other systems reviewed and are negative MSE Appearance: Dressed appropriately. Behavior: Calm and cooperative Mood: "okay" Affect: Congruent Thought Process: Goal directed Speech: Normal tone and pace Thought Content Suicidal: Yes, passive Homicidal: Denies Hallucinations: Visual Delusions: None elicited Consciousness: Alert Cognition/Memory: Fair Insight/Judgment: Fair Assessment: Schizoaffective Disorder Plan Treatment Plan Due to the psychiatric conditions and treatment listed in the Assessment and Plan - the patient requires continued hospitalization. Will continue inpatient treatment to allow for medication adjustment and monitoring. Will continue q15 min safety checks. Will encourage the use of environmental modifications and non-pharmacologic approaches for the management of behavioral and psychological symptoms. Medication adjustments: Started the patient on medications yesterday Will continue current psych medications Monitor for medication side effects. The patient will continue on medications for physical illnesses, and Hospitalist will closely monitor these Continue intensive physical and occupational therapies. Monitor patient's mood, sleep, appetite, and behavior closely. Encourage patient to participate in individual and group therapeutic sessions on the miranda. Will provide a safe and therapeutic environment for patient. The patient will be treated for schizoaffective Disorder. ELOS 7 days Plan for post-hospital care: [ out-patient ] Medications and Allergies Allergies Allergy/AdvReac Type Severity Reaction Status Date / Time acetaminophen [From Lortab] Allergy Shortness Verified 02/12/19 14:14 of Breath aspirin Allergy Hives Verified 02/12/19 14:14 divalproex sodium Allergy Rash Verified 12/27/18 01:28 [From Depakote] hydrocodone [From Lortab] Allergy Hives Verified 02/12/19 14:14 latex Allergy Rash Verified 02/12/19 14:14 nut - unspecified Allergy Shortness Verified 02/12/19 14:14 of Breath oxycodone Allergy Hives Verified 02/12/19 14:14 Penicillins Allergy Rash Verified 12/26/18 18:35 propoxyphene Allergy Rash Verified 12/26/18 18:35 [From Darvocet-N] Sulfa (Sulfonamide Allergy Rash Verified 12/26/18 18:35 Antibiotics) dairy Allergy Diarrhea Uncoded 02/12/19 14:15 napsylate Allergy Hives Uncoded 02/12/19 14:14 Home Medications Medication Instructions Recorded Confirmed Last Taken Type OLANzapine [ZyPREXA] 5 mg PO QHS 02/01/19 09/11/19 08/27/19 13:00 History Benztropine [Cogentin] 0.5 mg PO BID 09/09/19 09/11/19 09/09/19 13:00 History Fluticasone [Flonase] 1 spray NS QDAY 09/09/19 09/11/19 Unknown History Furosemide [Lasix TAB] 40 mg PO QDAY 09/09/19 09/11/19 Unknown History Potassium Chloride [K-Dur] 10 meq PO QDAY 09/09/19 09/11/19 09/09/19 13:00 History Propranolol [Inderal] 10 mg PO BID 09/09/19 09/11/19 09/09/19 13:00 History Simvastatin 5 mg PO QHS 09/09/19 09/11/19 Unknown History clonazePAM 0.5 mg PO BID PRN 09/09/19 09/11/19 Unknown History hydrOXYzine HCL [Atarax] 25 mg PO TID 09/09/19 09/11/19 Unknown History Active Meds: Active Medications Benztropine Mesylate (Cogentin) 0.5 mg PO BID [facility] Last Admin: 09/10/19 21:33 Dose: 0.5 mg Documented by: Buspirone HCl (Buspar) 5 mg PO BID [facility] Last Admin: 09/10/19 21:33 Dose: 5 mg Documented by: Clonazepam (Klonopin) 0.5 mg PO BID PRN PRN Reason: Anxiety Doxepin HCl (Sinequan) 10 mg PO QHS [facility] Last Admin: 09/10/19 21:34 Dose: 10 mg Documented by: Escitalopram Oxalate (Lexapro) 5 mg PO QDAY [facility] Furosemide (Lasix) 40 mg PO QDAY [facility] Hydroxyzine HCl (Vistaril) 50 mg IM Q6H PRN PRN Reason: Anxiety Olanzapine (Zyprexa) 5 mg PO QHS [facility] Last Admin: 09/10/19 21:33 Dose: 5 mg Documented by: Potassium Chloride (K-Dur) 10 meq PO QDAY [facility] Pravastatin Sodium (Pravachol) 10 mg PO QHS [facility] Last Admin: 09/10/19 21:35 Dose: 10 mg Documented by: Propranolol HCl (Inderal) 10 mg PO BID [facility] Last Admin: 09/10/19 21:34 Dose: 10 mg Documented by: Risperidone (Risperdal) 0.25 mg PO DAILY [facility] Rivaroxaban (Xarelto) 10 mg PO QDAY [facility]; Protocol Last Admin: 09/10/19 21:32 Dose: Not Given Documented by: Ziprasidone (Geodon) 10 mg IM Q4H PRN PRN Reason: Agitation Results - Results Labs/Vitals: Laboratory Last Values WBC 7.2 K/mm3 (4.5-11.0) 09/10/19 14:58 RBC 5.06 M/mm3 (3.65-5.03) H 09/10/19 14:58 Hgb 13.9 gm/dl (10.1-14.3) 09/10/19 14:58 Hct 42.3 % (30.3-42.9) 09/10/19 14:58 MCV 84 fl (79-97) 09/10/19 14:58 MCH 28 pg (28-32) 09/10/19 14:58 MCHC 33 % (30-34) 09/10/19 14:58 RDW 14.9 % (13.2-15.2) 09/10/19 14:58 Plt Count 261 K/mm3 (140-440) 09/10/19 14:58 Lymph % (Auto) 23.3 % (13.4-35.0) 09/10/19 14:58 [place] % (Auto) 5.4 % (0.0-7.3) 09/10/19 14:58 Eos % (Auto) 1.5 % (0.0-4.3) 09/10/19 14:58 Baso % (Auto) 0.7 % (0.0-1.8) 09/10/19 14:58 Lymph # 1.7 K/mm3 (1.2-5.4) 09/10/19 14:58 [place] # 0.4 K/mm3 (0.0-0.8) 09/10/19 14:58 Eos # 0.1 K/mm3 (0.0-0.4) 09/10/19 14:58 Baso # 0.1 K/mm3 (0.0-0.1) 09/10/19 14:58 Seg Neutrophils % 69.1 % (40.0-70.0) 09/10/19 14:58 Seg Neutrophils # 5.0 K/mm3 (1.8-7.7) 09/10/19 14:58 Sodium 141 mmol/L (137-145) 09/10/19 14:58 Potassium 4.2 mmol/L (3.6-5.0) 09/10/19 14:58 Chloride 103.8 mmol/L (98-107) 09/10/19 14:58 Carbon Dioxide 24 mmol/L (22-30) 09/10/19 14:58 Anion Gap 17 mmol/L 09/10/19 14:58 BUN 8 mg/dL (7-17) 09/10/19 14:58 Creatinine 0.6 mg/dL (0.7-1.2) L 09/10/19 14:58 Estimated GFR > 60 ml/min 09/10/19 14:58 BUN/Creatinine Ratio 13 % 09/10/19 14:58 Glucose 90 mg/dL (65-100) 09/10/19 14:58 POC Glucose 89 (70-105) 09/11/19 06:54 Hemoglobin A1c 5.2 % (4-6) 09/10/19 14:58 Calcium 9.4 mg/dL (8.4-10.2) 09/10/19 14:58 Total Bilirubin 0.50 mg/dL (0.1-1.2) 09/10/19 14:58 AST 17 units/L (5-40) 09/10/19 14:58 ALT 11 units/L (7-56) 09/10/19 14:58 Alkaline Phosphatase 101 units/L (35-129) 09/10/19 14:58 Total Protein 7.3 g/dL (6.3-8.2) 09/10/19 14:58 Albumin 4.2 g/dL (3.9-5) 09/10/19 14:58 Albumin/Globulin Ratio 1.4 % 09/10/19 14:58 Triglycerides 102 mg/dL (2-149) 09/10/19 14:58 Cholesterol 192 mg/dL (50-199) 09/10/19 14:58 LDL Cholesterol Direct 121 mg/dL (50-130) 09/10/19 14:58 HDL Cholesterol 56 mg/dL (40-59) 09/10/19 14:58 Cholesterol/HDL Ratio 3.42 % 09/10/19 14:58 TSH 3.980 mlU/mL (0.270-4.200) 09/10/19 14:58 Last Vital Signs Temp 98.6 F 09/10/19 20:14 Pulse 66 09/10/19 21:34 Resp 18 09/10/19 20:14 BP 133/76 09/10/19 21:34 Pulse Ox 95 09/10/19 20:14
[2019-09-11] MEDS ORDERED: risperiDONE 0.25 MG TAB PO SCH (10:00)
[2019-09-11] MEDS: POTASSIUM CHLORIDE ER 10 MEQ TAB PO SCH (11:17)
[2019-09-11] MEDS: ESCITALOPRAM 10 MG TAB PO SCH (11:17)
[2019-09-11] MEDS: RIVAROXABAN 10 MG TAB PO SCH (11:17)
[2019-09-11] MEDS: busPIRone 5 MG TAB PO SCH ×2 (11:17→21:37)
[2019-09-11] MEDS: PROPRANOLOL 10 MG TAB PO SCH ×2 (11:19→21:40)
[2019-09-11] MEDS: FUROSEMIDE 40 MG TAB PO SCH (11:20)
[2019-09-11] MEDS: BENZTROPINE 0.5 MG TAB PO SCH ×2 (11:20→21:37)
[2019-09-11] MEDS ORDERED: FLU VACC QUAD 2019-20 (3 YR UP)/PF 60 MCG/0.5 ML SYRINGE IM ONE (12:00)
[2019-09-11] MEDS: PRAVASTATIN 20 MG TAB PO SCH (21:37)
[2019-09-11] MEDS: DOXEPIN 10 MG CAP PO SCH (21:38)
--- NOTE | 2019-09-12 08:42 | Progress Note ---
Subjective Date of service: 09/12/19 Principal diagnosis: Schizoaffective Disorder, Depressive Type Subjective Comment: During my interview with the patient this morning, she is lying in the bed. She appears startled when I enter the room. She is a/o x 3. She makes good eye contact. She is dressed appropriately. Her affect is congruent. The patient states she's "not feeling good." She says she's just "really anxious." She denies SI/HI, saying "I felt like dying when I came in but not now." She denies hallucinations of any kind. The patient says she has fear of going home. She says "I'm so scared of [place]. I feel scared thinking of going home." The patient told me during the last interview that [place] was her caregiver's . Reason for continued admission for inpatient treatment: The patient has a feeling of endangerment going home, possibly delusional. REVIEW OF SYSTEMS Constitutional: Negative for weight loss ENT: Negative for stridor Respiratory: Negative for cough or hemoptysis All other systems reviewed and are negative MSE Appearance: Dressed appropriately. Behavior: Jumpy, cooperative Mood: "anxious" Affect: Congruent Thought Process: Goal directed Speech: Normal tone and pace Thought Content Suicidal: Denies Homicidal: Denies Hallucinations: Denies Delusions: "fear" Consciousness: Alert Cognition/Memory: Fair Insight/Judgment: Fair Assessment: Schizoaffective Disorder Plan Treatment Plan Due to the psychiatric conditions and treatment listed in the Assessment and Plan - the patient requires continued hospitalization. Will continue inpatient treatment to allow for medication adjustment and monitoring. Will continue q15 min safety checks. Will encourage the use of environmental modifications and non-pharmacologic approaches for the management of behavioral and psychological symptoms. Medication adjustments: Increased Risperidone 0.5mg po daily, Increased Buspar 7.5mg po BID Will continue current psych medications Monitor for medication side effects. The patient will continue on medications for physical illnesses, and Hospitalist will closely monitor these Continue intensive physical and occupational therapies. Monitor patient's mood, sleep, appetite, and behavior closely. Encourage patient to participate in individual and group therapeutic sessions on the miranda. Will provide a safe and therapeutic environment for patient. The patient will be treated for schizoaffective Disorder. ELOS 7 days Plan for post-hospital care: [ out-patient ] Medications and Allergies Allergies Allergy/AdvReac Type Severity Reaction Status Date / Time acetaminophen [From Lortab] Allergy Shortness Verified 02/12/19 14:14 of Breath aspirin Allergy Hives Verified 02/12/19 14:14 divalproex sodium Allergy Rash Verified 12/27/18 01:28 [From Depakote] hydrocodone [From Lortab] Allergy Hives Verified 02/12/19 14:14 latex Allergy Rash Verified 02/12/19 14:14 nut - unspecified Allergy Shortness Verified 02/12/19 14:14 of Breath oxycodone Allergy Hives Verified 02/12/19 14:14 Penicillins Allergy Rash Verified 12/26/18 18:35 propoxyphene Allergy Rash Verified 12/26/18 18:35 [From Darvocet-N] Sulfa (Sulfonamide Allergy Rash Verified 12/26/18 18:35 Antibiotics) dairy Allergy Diarrhea Uncoded 02/12/19 14:15 napsylate Allergy Hives Uncoded 02/12/19 14:14 Home Medications Medication Instructions Recorded Confirmed Last Taken Type OLANzapine [ZyPREXA] 5 mg PO QHS 02/01/19 09/11/19 08/27/19 13:00 History Benztropine [Cogentin] 0.5 mg PO BID 09/09/19 09/11/19 09/09/19 13:00 History Fluticasone [Flonase] 1 spray NS QDAY 09/09/19 09/11/19 Unknown History Furosemide [Lasix TAB] 40 mg PO QDAY 09/09/19 09/11/19 Unknown History Potassium Chloride [K-Dur] 10 meq PO QDAY 09/09/19 09/11/19 09/09/19 13:00 Hist ory Propranolol [Inderal] 10 mg PO BID 09/09/19 09/11/19 09/09/19 13:00 History Simvastatin 5 mg PO QHS 09/09/19 09/11/19 Unknown History clonazePAM 0.5 mg PO BID PRN 09/09/19 09/11/19 Unknown History hydrOXYzine HCL [Atarax] 25 mg PO TID 09/09/19 09/11/19 Unknown History Active Meds: Active Medications Benztropine Mesylate (Cogentin) 0.5 mg PO BID [facility] Last Admin: 09/11/19 21:37 Dose: 0.5 mg Documented by: Buspirone HCl (Buspar) 5 mg PO BID [facility] Last Admin: 09/11/19 21:37 Dose: 5 mg Documented by: Clonazepam (Klonopin) 0.5 mg PO BID PRN PRN Reason: Anxiety Doxepin HCl (Sinequan) 10 mg PO QHS [facility] Last Admin: 09/11/19 21:38 Dose: 10 mg Documented by: Escitalopram Oxalate (Lexapro) 5 mg PO QDAY [facility] Last Admin: 09/11/19 11:17 Dose: 5 mg Documented by: Furosemide (Lasix) 40 mg PO QDAY [facility] Last Admin: 09/11/19 11:20 Dose: 40 mg Documented by: Hydroxyzine HCl (Vistaril) 50 mg IM Q6H PRN PRN Reason: Anxiety Olanzapine (Zyprexa) 5 mg PO QHS [facility] Last Admin: 09/11/19 21:37 Dose: 5 mg Documented by: Potassium Chloride (K-Dur) 10 meq PO QDAY [facility] Last Admin: 09/11/19 11:17 Dose: 10 meq Documented by: Pravastatin Sodium (Pravachol) 10 mg PO QHS [facility] Last Admin: 09/11/19 21:37 Dose: 10 mg Documented by: Propranolol HCl (Inderal) 10 mg PO BID [facility] Last Admin: 09/11/19 21:40 Dose: Not Given Documented by: Risperidone (Risperdal) 0.25 mg PO DAILY [facility] Last Admin: 09/11/19 11:17 Dose: 0.25 mg Documented by: Rivaroxaban (Xarelto) 10 mg PO QDAY [facility]; Protocol Last Admin: 09/11/19 11:17 Dose: 10 mg Documented by: Ziprasidone (Geodon) 10 mg IM Q4H PRN PRN Reason: Agitation Results - Results Labs/Vitals: Laboratory Last Values WBC 7.2 K/mm3 (4.5-11.0) 09/10/19 14:58 RBC 5.06 M/mm3 (3.65-5.03) H 09/10/19 14:58 Hgb 13.9 gm/dl (10.1-14.3) 09/10/19 14:58 Hct 42.3 % (30.3-42.9) 09/10/19 14:58 MCV 84 fl (79-97) 09/10/19 14:58 MCH 28 pg (28-32) 09/10/19 14:58 MCHC 33 % (30-34) 09/10/19 14:58 RDW 14.9 % (13.2-15.2) 09/10/19 14:58 Plt Count 261 K/mm3 (140-440) 09/10/19 14:58 Lymph % (Auto) 23.3 % (13.4-35.0) 09/10/19 14:58 [place] % (Auto) 5.4 % (0.0-7.3) 09/10/19 14:58 Eos % (Auto) 1.5 % (0.0-4.3) 09/10/19 14:58 Baso % (Auto) 0.7 % (0.0-1.8) 09/10/19 14:58 Lymph # 1.7 K/mm3 (1.2-5.4) 09/10/19 14:58 [place] # 0.4 K/mm3 (0.0-0.8) 09/10/19 14:58 Eos # 0.1 K/mm3 (0.0-0.4) 09/10/19 14:58 Baso # 0.1 K/mm3 (0.0-0.1) 09/10/19 14:58 Seg Neutrophils % 69.1 % (40.0-70.0) 09/10/19 14:58 Seg Neutrophils # 5.0 K/mm3 (1.8-7.7) 09/10/19 14:58 Sodium 141 mmol/L (137-145) 09/10/19 14:58 Potassium 4.2 mmol/L (3.6-5.0) 09/10/19 14:58 Chloride 103.8 mmol/L (98-107) 09/10/19 14:58 Carbon Dioxide 24 mmol/L (22-30) 09/10/19 14:58 Anion Gap 17 mmol/L 09/10/19 14:58 BUN 8 mg/dL (7-17) 09/10/19 14:58 Creatinine 0.6 mg/dL (0.7-1.2) L 09/10/19 14:58 Estimated GFR > 60 ml/min 09/10/19 14:58 BUN/Creatinine Ratio 13 % 09/10/19 14:58 Glucose 90 mg/dL (65-100) 09/10/19 14:58 POC Glucose 91 (70-105) 09/11/19 19:14 Hemoglobin A1c 5.2 % (4-6) 09/10/19 14:58 Calcium 9.4 mg/dL (8.4-10.2) 09/10/19 14:58 Total Bilirubin 0.50 mg/dL (0.1-1.2) 09/10/19 14:58 AST 17 units/L (5-40) 09/10/19 14:58 ALT 11 units/L (7-56) 09/10/19 14:58 Alkaline Phosphatase 101 units/L (35-129) 09/10/19 14:58 Total Protein 7.3 g/dL (6.3-8.2) 09/10/19 14:58 Albumin 4.2 g/dL (3.9-5) 09/10/19 14:58 Albumin/Globulin Ratio 1.4 % 09/10/19 14:58 Triglycerides 102 mg/dL (2-149) 09/10/19 14:58 Cholesterol 192 mg/dL (50-199) 09/10/19 14:58 LDL Cholesterol Direct 121 mg/dL (50-130) 09/10/19 14:58 HDL Cholesterol 56 mg/dL (40-59) 09/10/19 14:58 Cholesterol/HDL Ratio 3.42 % 09/10/19 14:58 TSH 3.980 mlU/mL (0.270-4.200) 09/10/19 14:58 Last Vital Signs Temp 98.1 F 09/12/19 00:39 Pulse 57 L 09/11/19 21:40 Resp 18 09/12/19 00:39 BP 105/72 09/11/19 21:40 Pulse Ox 98 09/11/19 18:42
[2019-09-12] MEDS: ESCITALOPRAM 10 MG TAB PO SCH (09:33)
[2019-09-12] MEDS: RIVAROXABAN 10 MG TAB PO SCH (09:33)
[2019-09-12] MEDS: PROPRANOLOL 10 MG TAB PO SCH ×2 (09:34→21:09)
[2019-09-12] MEDS: BENZTROPINE 0.5 MG TAB PO SCH ×2 (09:35→21:05)
[2019-09-12] MEDS: FUROSEMIDE 40 MG TAB PO SCH (09:35)
[2019-09-12] MEDS: POTASSIUM CHLORIDE ER 10 MEQ TAB PO SCH (09:35)
[2019-09-12] MEDS: risperiDONE 0.25 MG TAB PO SCH ×2 (10:34→21:06)
[2019-09-12] MEDS: busPIRone 5 MG TAB PO SCH ×2 (10:35→21:07)
[2019-09-12] MEDS: DOXEPIN 10 MG CAP PO SCH (21:05)
[2019-09-12] MEDS: PRAVASTATIN 20 MG TAB PO SCH (21:06)
--- NOTE | 2019-09-13 08:01 | Progress Note ---
Subjective Date of service: 09/13/19 Principal diagnosis: Schizoaffective Disorder, Depressive Type Subjective Comment: I reviewed the patient's medical record and discussed the patient's progress with the nursing staff. The nurse note states the patient states she feels anxious, worried and hears music "when love broke through" by Amaliadanika yang. She was reassured and distracted with group activity. During my interview with the patient this morning, she is lying in the bed. Awake. She is dressed appropriately. She makes good eye contact. She appears anxious. She's somewhat jumpy. She's cooperative and polite. She immediately tells me upon entering the room "I feel physically sick, like I'm coming down with something." The patient states, "I feel exhausted, weak, sore throat and sneezing a lot." She says she also feels like her "anxiety is getting worse." Ms. Pardo says her "heart is racing, having racing thoughts, shaking, and fear of people." She says the "fear is overwhelming." The patient states she thinks her "caregiver is causing the fear." She says "I'm just afraid." The patient states "I'm not sure if it's paranoia or not. My brother used to tell me I was paranoid." The patient does says she's "felt like this other times in the past." She says it has her "depressed." She says she was "hearing music yesterday." The patient states, "it was a song by Luis Will playing over and over. It was so hard for me to focus on anything." The patient also says "it was very difficulty for me to fall asleep." The patient denies SI/HI. Reason for continued admission for inpatient treatment: The patient is depressed, hallucinating, and paranoid. She's also having high anxiety which is impairing her ability to concentrate. REVIEW OF SYSTEMS Constitutional: Negative for weight loss ENT: Negative for stridor Respiratory: Negative for cough or hemoptysis All other systems reviewed and are negative MSE Appearance: Dressed appropriately. Behavior: Jumpy, cooperative, good eye contact Mood: "anxious, depressed" Affect: Restricted Thought Process: Goal directed Speech: Normal tone and pace Thought Content Suicidal: Denies Homicidal: Denies Hallucinations: Music Delusions: false sense of fear Consciousness: Alert Cognition/Memory: Fair Insight/Judgment: Fair Assessment: Schizoaffective Disorder Plan Treatment Plan Due to the psychiatric conditions and treatment listed in the Assessment and Plan - the patient requires continued hospitalization. Will continue inpatient treatment to allow for medication adjustment and monitoring. Will continue q15 min safety checks. Will encourage the use of environmental modifications and non-pharmacologic approaches for the management of behavioral and psychological symptoms. Medication adjustments: D/C Buspar, as the patient's above symptoms may be due to this. This could cause increased heart rate, sore throat, nervousness or unusual tiredness Increased Risperidone 1mg po BID to decrease paranoia and hallucinations Increased Lexapro 10mg to decrease depressive symptoms and help control anxiety Increased Doxepin 25mg po qhs to help with difficulty falling asleep Started Vistaril 25mg daily to help control anxiety Will continue current psych medications Monitor for medication side effects. The patient will continue on medications for physical illnesses, and Hospitalist will closely monitor these Continue intensive physical and occupational therapies. Monitor patient's mood, sleep, appetite, and behavior closely. Encourage patient to participate in individual and group therapeutic sessions on the miranda. Will provide a safe and therapeutic environment for patient. The patient will be treated for schizoaffective Disorder. ELOS 5 days Plan for post-hospital care: [ out-patient ] Medications and Allergies Allergies Allergy/AdvReac Type Severity Reaction Status Date / Time acetaminophen [From Lortab] Allergy Shortness Verified 02/12/19 14:14 of Breath aspirin Allergy Hives Verified 02/12/19 14:14 divalproex sodium Allergy Rash Verified 12/27/18 01:28 [From Depakote] hydrocodone [From Lortab] Allergy Hives Verified 02/12/19 14:14 latex Allergy Rash Verified 02/12/19 14:14 nut - unspecified Allergy Shortness Verified 02/12/19 14:14 of Breath oxycodone Allergy Hives Verified 02/12/19 14:14 Penicillins Allergy Rash Verified 12/26/18 18:35 propoxyphene Allergy Rash Verified 12/26/18 18:35 [From Darvocet-N] Sulfa (Sulfonamide Allergy Rash Verified 12/26/18 18:35 Antibiotics) dairy Allergy Diarrhea Uncoded 02/12/19 14:15 napsylate Allergy Hives Uncoded 02/12/19 14:14 Home Medications Medication Instructions Recorded Confirmed Last Taken Type OLANzapine [ZyPREXA] 5 mg PO QHS 02/01/19 09/11/19 08/27/19 13:00 History Benztropine [Cogentin] 0.5 mg PO BID 09/09/19 09/11/19 09/09/19 13:00 History Fluticasone [Flonase] 1 spray NS QDAY 09/09/19 09/11/19 Unknown History Furosemide [Lasix TAB] 40 mg PO QDAY 09/09/19 09/11/19 Unknown History Potassium Chloride [K-Dur] 10 meq PO QDAY 09/09/19 09/11/19 09/09/19 13:00 History Propranolol [Inderal] 10 mg PO BID 09/09/19 09/11/19 09/09/19 13:00 History Simvastatin 5 mg PO QHS 09/09/19 09/11/19 Unknown History clonazePAM 0.5 mg PO BID PRN 09/09/19 09/11/19 Unknown History hydrOXYzine HCL [Atarax] 25 mg PO TID 09/09/19 09/11/19 Unknown History Active Meds: Active Medications Benztropine Mesylate (Cogentin) 0.5 mg PO BID [facility] Last Admin: 09/12/19 21:05 Dose: 0.5 mg Documented by: Buspirone HCl (Buspar) 7.5 mg PO BID [facility] Last Admin: 09/12/19 21:07 Dose: 7.5 mg Documented by: Clonazepam (Klonopin) 0.5 mg PO BID PRN PRN Reason: Anxiety Doxepin HCl (Sinequan) 10 mg PO QHS [facility] Last Admin: 09/12/19 21:05 Dose: 10 mg Documented by: Escitalopram Oxalate (Lexapro) 5 mg PO QDAY [facility] Last Admin: 09/12/19 09:33 Dose: 5 mg Documented by: Furosemide (Lasix) 40 mg PO QDAY [facility] Last Admin: 09/12/19 09:35 Dose: 40 mg Documented by: Hydroxyzine HCl (Vistaril) 50 mg IM Q6H PRN PRN Reason: Anxiety Olanzapine (Zyprexa) 5 mg PO QHS [facility] Last Admin: 09/12/19 21:06 Dose: 5 mg Documented by: Potassium Chloride (K-Dur) 10 meq PO QDAY [facility] Last Admin: 09/12/19 09:35 Dose: 10 meq Documented by: Pravastatin Sodium (Pravachol) 10 mg PO QHS [facility] Last Admin: 09/12/19 21:06 Dose: 10 mg Documented by: Propranolol HCl (Inderal) 10 mg PO BID [facility] Last Admin: 09/12/19 21:09 Dose: 10 mg Documented by: Risperidone (Risperdal) 0.5 mg PO BID [facility] Last Admin: 09/12/19 21:06 Dose: 0.5 mg Documented by: Rivaroxaban (Xarelto) 10 mg PO QDAY [facility]; Protocol Last Admin: 09/12/19 09:33 Dose: 10 mg Documented by: Ziprasidone (Geodon) 10 mg IM Q4H PRN PRN Reason: Agitation Results - Results Labs/Vitals: Laboratory Last Values WBC 7.2 K/mm3 (4.5-11.0) 09/10/19 14:58 RBC 5.06 M/mm3 (3.65-5.03) H 09/10/19 14:58 Hgb 13.9 gm/dl (10.1-14.3) 09/10/19 14:58 Hct 42.3 % (30.3-42.9) 09/10/19 14:58 MCV 84 fl (79-97) 09/10/19 14:58 MCH 28 pg (28-32) 09/10/19 14:58 MCHC 33 % (30-34) 09/10/19 14:58 RDW 14.9 % (13.2-15.2) 09/10/19 14:58 Plt Count 261 K/mm3 (140-440) 09/10/19 14:58 Lymph % (Auto) 23.3 % (13.4-35.0) 09/10/19 14:58 [place] % (Auto) 5.4 % (0.0-7.3) 09/10/19 14:58 Eos % (Auto) 1.5 % (0.0-4.3) 09/10/19 14:58 Baso % (Auto) 0.7 % (0.0-1.8) 09/10/19 14:58 Lymph # 1.7 K/mm3 (1.2-5.4) 09/10/19 14:58 [place] # 0.4 K/mm3 (0.0-0.8) 09/10/19 14:58 Eos # 0.1 K/mm3 (0.0-0.4) 09/10/19 14:58 Baso # 0.1 K/mm3 (0.0-0.1) 09/10/19 14:58 Seg Neutrophils % 69.1 % (40.0-70.0) 09/10/19 14:58 Seg Neutrophils # 5.0 K/mm3 (1.8-7.7) 09/10/19 14:58 Sodium 141 mmol/L (137-145) 09/10/19 14:58 Potassium 4.2 mmol/L (3.6-5.0) 09/10/19 14:58 Chloride 103.8 mmol/L (98-107) 09/10/19 14:58 Carbon Dioxide 24 mmol/L (22-30) 09/10/19 14:58 Anion Gap 17 mmol/L 09/10/19 14:58 BUN 8 mg/dL (7-17) 09/10/19 14:58 Creatinine 0.6 mg/dL (0.7-1.2) L 09/10/19 14:58 Estimated GFR > 60 ml/min 09/10/19 14:58 BUN/Creatinine Ratio 13 % 09/10/19 14:58 Glucose 90 mg/dL (65-100) 09/10/19 14:58 POC Glucose 91 (70-105) 09/11/19 19:14 Hemoglobin A1c 5.2 % (4-6) 09/10/19 14:58 Calcium 9.4 mg/dL (8.4-10.2) 09/10/19 14:58 Total Bilirubin 0.50 mg/dL (0.1-1.2) 09/10/19 14:58 AST 17 units/L (5-40) 09/10/19 14:58 ALT 11 units/L (7-56) 09/10/19 14:58 Alkaline Phosphatase 101 units/L (35-129) 09/10/19 14:58 Total Protein 7.3 g/dL (6.3-8.2) 09/10/19 14:58 Albumin 4.2 g/dL (3.9-5) 09/10/19 14:58 Albumin/Globulin Ratio 1.4 % 09/10/19 14:58 Triglycerides 102 mg/dL (2-149) 09/10/19 14:58 Cholesterol 192 mg/dL (50-199) 09/10/19 14:58 LDL Cholesterol Direct 121 mg/dL (50-130) 09/10/19 14:58 HDL Cholesterol 56 mg/dL (40-59) 09/10/19 14:58 Cholesterol/HDL Ratio 3.42 % 09/10/19 14:58 TSH 3.980 mlU/mL (0.270-4.200) 09/10/19 14:58 Last Vital Signs Temp 98.4 F 09/12/19 22:00 Pulse 64 09/12/19 22:00 Resp 18 09/12/19 22:00 BP 110/61 09/12/19 22:00 Pulse Ox 99 09/12/19 22:00
[2019-09-13] MEDS: hydrOXYzine PAMOATE 25 MG CAP PO SCH (09:23)
[2019-09-13] MEDS: POTASSIUM CHLORIDE ER 10 MEQ TAB PO SCH (09:23)
[2019-09-13] MEDS: FUROSEMIDE 40 MG TAB PO SCH (09:24)
[2019-09-13] MEDS: ESCITALOPRAM 10 MG TAB PO SCH (09:24)
[2019-09-13] MEDS: BENZTROPINE 0.5 MG TAB PO SCH ×2 (09:25→21:11)
[2019-09-13] MEDS: risperiDONE 0.25 MG TAB PO SCH ×2 (09:29→21:13)
[2019-09-13] MEDS: PROPRANOLOL 10 MG TAB PO SCH ×2 (09:31→21:13)
[2019-09-13] MEDS: RIVAROXABAN 10 MG TAB PO SCH (09:33)
[2019-09-13] MEDS: DOXEPIN 25 MG CAP PO SCH (21:11)
[2019-09-13] MEDS: PRAVASTATIN 20 MG TAB PO SCH (21:15)
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
[2019-09-14] MEDS: RIVAROXABAN 10 MG TAB PO SCH (10:15)
[2019-09-14] MEDS: ESCITALOPRAM 10 MG TAB PO SCH (10:16)
[2019-09-14] MEDS: PROPRANOLOL 10 MG TAB PO SCH ×2 (10:16→21:12)
[2019-09-14] MEDS: FUROSEMIDE 40 MG TAB PO SCH (10:17)
[2019-09-14] MEDS: POTASSIUM CHLORIDE ER 10 MEQ TAB PO SCH (10:17)
[2019-09-14] MEDS: hydrOXYzine PAMOATE 25 MG CAP PO SCH (10:17)
[2019-09-14] MEDS: risperiDONE 0.25 MG TAB PO SCH (10:17)
[2019-09-14] MEDS: BENZTROPINE 0.5 MG TAB PO SCH ×2 (10:21→21:14)
[2019-09-14] MEDS: PRAVASTATIN 20 MG TAB PO SCH (21:11)
[2019-09-14] MEDS: DOXEPIN 25 MG CAP PO SCH (21:13)
[2019-09-14] MEDS: risperiDONE 1 MG TAB PO SCH (21:14)
--- NOTE | 2019-09-15 07:47 | Progress Note ---
Subjective Date of service: 09/15/19 Principal diagnosis: Schizoaffective Disorder, Depressive Type Subjective Comment: I reviewed the patient's medical record and discussed the patient's progress with the nursing staff. Per patient chart, Patient slept most of the night. Assistance to bathroom x2. Compliant with medications and ate 100% of snack. No Hi/Si ideation noted. Staff will continue to monitor for safety. During my interview with the patient this morning, she is lying in bed, Awake [id number]. She is dressed appropriately. She makes good eye contact. the patient reports that she is sleeping well she states, " I had no nightmares last night". The patient reports that she is eating well.The patient denied suicidal or homicidal ideation contracts to ask the staff for help if any of these symptoms increase .The patient report feeling better but, reports that the depression still lingers, she reports that she feels better than yesterday but she is still feeling sad,decrease in energy and still struggles to get out of bed.The patient denies visual or auditory hallucinations. She reports her mood as pretty stable. Reason for continued admission for inpatient treatment: depression REVIEW OF SYSTEMS Constitutional: Negative for weight loss ENT: Negative for stridor Respiratory: Negative for cough or hemoptysis All other systems reviewed and are negative MSE Appearance: Dressed appropriately. Behavior: cooperative, good eye contact Mood: "pretty stable" Affect: labile Thought Process: Goal directed Speech: Normal tone and pace Thought Content Suicidal: Denies Homicidal: Denies Hallucinations: denies Delusions: denies Consciousness: Alert Cognition/Memory: Fair Insight/Judgment: Fair Assessment: Schizoaffective Disorder Plan Treatment Plan Due to the psychiatric conditions and treatment listed in the Assessment and Plan - the patient requires continued hospitalization. Will continue inpatient treatment to allow for medication adjustment and monitoring. Will continue q15 min safety checks. Will encourage the use of environmental modifications and non-pharmacologic approaches for the management of behavioral and psychological symptoms. Medication adjustments: adjustment done 1 day ago Will continue current psych medications Monitor for medication side effects. The patient will continue on medications for physical illnesses, and Hospitalist will closely monitor these Continue intensive physical and occupational therapies. Monitor patient's mood, sleep, appetite, and behavior closely. Encourage patient to participate in individual and group therapeutic sessions on the miranda. Will provide a safe and therapeutic environment for patient. The patient will be treated for schizoaffective Disorder. ELOS 5 days Plan for post-hospital care: [ out-patient ] Medications and Allergies Allergies Allergy/AdvReac Type Severity Reaction Status Date / Time acetaminophen [From Lortab] Allergy Shortness Verified 02/12/19 14:14 of Breath aspirin Allergy Hives Verified 02/12/19 14:14 divalproex sodium Allergy Rash Verified 12/27/18 01:28 [From Depakote] hydrocodone [From Lortab] Allergy Hives Verified 02/12/19 14:14 latex Allergy Rash Verified 02/12/19 14:14 nut - unspecified Allergy Shortness Verified 02/12/19 14:14 of Breath oxycodone Allergy Hives Verified 02/12/19 14:14 Penicillins Allergy Rash Verified 12/26/18 18:35 propoxyphene Allergy Rash Verified 12/26/18 18:35 [From Darvocet-N] Sulfa (Sulfonamide Allergy Rash Verified 12/26/18 18:35 Antibiotics) dairy Allergy Diarrhea Uncoded 02/12/19 14:15 napsylate Allergy Hives Uncoded 02/12/19 14:14 Home Medications Medication Instructions Recorded Confirmed Last Taken Type OLANzapine [ZyPREXA] 5 mg PO QHS 02/01/19 09/11/19 08/27/19 13:00 History Benztropine [Cogentin] 0.5 mg PO BID 09/09/19 09/11/19 09/09/19 13:00 History Fluticasone [Flonase] 1 spray NS QDAY 09/09/19 09/11/19 Unknown History Furosemide [Lasix TAB] 40 mg PO QDAY 09/09/19 09/11/19 Unknown History Potassium Chloride [K-Dur] 10 meq PO QDAY 09/09/19 09/11/19 09/09/19 13:00 History Propranolol [Inderal] 10 mg PO BID 09/09/19 09/11/19 09/09/19 13:00 History Simvastatin 5 mg PO QHS 09/09/19 09/11/19 Unknown History clonazePAM 0.5 mg PO BID PRN 09/09/19 09/11/19 Unknown History hydrOXYzine HCL [Atarax] 25 mg PO TID 09/09/19 09/11/19 Unknown History Active Meds: Active Medications Benztropine Mesylate (Cogentin) 0.5 mg PO BID [facility] Last Admin: 09/14/19 21:14 Dose: 0.5 mg Documented by: Clonazepam (Klonopin) 0.5 mg PO BID PRN PRN Reason: Anxiety Doxepin HCl (Sinequan) 25 mg PO QHS [facility] Last Admin: 09/14/19 21:13 Dose: 25 mg Documented by: Escitalopram Oxalate (Lexapro) 10 mg PO QDAY [facility] Last Admin: 09/14/19 10:16 Dose: 10 mg Documented by: Furosemide (Lasix) 40 mg PO QDAY [facility] Last Admin: 09/14/19 10:17 Dose: 40 mg Documented by: Hydroxyzine HCl (Vistaril) 50 mg IM Q6H PRN PRN Reason: Anxiety Hydroxyzine Pamoate (Vistaril) 25 mg PO DAILY [facility] Last Admin: 09/14/19 10:17 Dose: 25 mg Documented by: Olanzapine (Zyprexa) 5 mg PO QHS [facility] Last Admin: 09/14/19 21:14 Dose: 5 mg Documented by: Potassium Chloride (K-Dur) 10 meq PO QDAY [facility] Last Admin: 09/14/19 10:17 Dose: 10 meq Documented by: Pravastatin Sodium (Pravachol) 10 mg PO QHS [facility] Last Admin: 09/14/19 21:11 Dose: 10 mg Documented by: Propranolol HCl (Inderal) 10 mg PO BID [facility] Last Admin: 09/14/19 21:12 Dose: 10 mg Documented by: Risperidone (Risperdal) 1 mg PO BID [facility] Last Admin: 09/14/19 21:14 Dose: 1 mg Documented by: Rivaroxaban (Xarelto) 10 mg PO QDAY [facility]; Protocol Last Admin: 09/14/19 10:15 Dose: 10 mg Documented by: Ziprasidone (Geodon) 10 mg IM Q4H PRN PRN Reason: Agitation Results - Results Labs/Vitals: Laboratory Last Values WBC 7.2 K/mm3 (4.5-11.0) 09/10/19 14:58 RBC 5.06 M/mm3 (3.65-5.03) H 09/10/19 14:58 Hgb 13.9 gm/dl (10.1-14.3) 09/10/19 14:58 Hct 42.3 % (30.3-42.9) 09/10/19 14:58 MCV 84 fl (79-97) 09/10/19 14:58 MCH 28 pg (28-32) 09/10/19 14:58 MCHC 33 % (30-34) 09/10/19 14:58 RDW 14.9 % (13.2-15.2) 09/10/19 14:58 Plt Count 261 K/mm3 (140-440) 09/10/19 14:58 Lymph % (Auto) 23.3 % (13.4-35.0) 09/10/19 14:58 [place] % (Auto) 5.4 % (0.0-7.3) 09/10/19 14:58 Eos % (Auto) 1.5 % (0.0-4.3) 09/10/19 14:58 Baso % (Auto) 0.7 % (0.0-1.8) 09/10/19 14:58 Lymph # 1.7 K/mm3 (1.2-5.4) 09/10/19 14:58 [place] # 0.4 K/mm3 (0.0-0.8) 09/10/19 14:58 Eos # 0.1 K/mm3 (0.0-0.4) 09/10/19 14:58 Baso # 0.1 K/mm3 (0.0-0.1) 09/10/19 14:58 Seg Neutrophils % 69.1 % (40.0-70.0) 09/10/19 14:58 Seg Neutrophils # 5.0 K/mm3 (1.8-7.7) 09/10/19 14:58 Sodium 141 mmol/L (137-145) 09/10/19 14:58 Potassium 4.2 mmol/L (3.6-5.0) 09/10/19 14:58 Chloride 103.8 mmol/L (98-107) 09/10/19 14:58 Carbon Dioxide 24 mmol/L (22-30) 09/10/19 14:58 Anion Gap 17 mmol/L 09/10/19 14:58 BUN 8 mg/dL (7-17) 09/10/19 14:58 Creatinine 0.6 mg/dL (0.7-1.2) L 09/10/19 14:58 Estimated GFR > 60 ml/min 09/10/19 14:58 BUN/Creatinine Ratio 13 % 09/10/19 14:58 Glucose 90 mg/dL (65-100) 09/10/19 14:58 POC Glucose 82 (70-105) 09/14/19 21:09 Hemoglobin A1c 5.2 % (4-6) 09/10/19 14:58 Calcium 9.4 mg/dL (8.4-10.2) 09/10/19 14:58 Total Bilirubin 0.50 mg/dL (0.1-1.2) 09/10/19 14:58 AST 17 units/L (5-40) 09/10/19 14:58 ALT 11 units/L (7-56) 09/10/19 14:58 Alkaline Phosphatase 101 units/L (35-129) 09/10/19 14:58 Total Protein 7.3 g/dL (6.3-8.2) 09/10/19 14:58 Albumin 4.2 g/dL (3.9-5) 09/10/19 14:58 Albumin/Globulin Ratio 1.4 % 09/10/19 14:58 Triglycerides 102 mg/dL (2-149) 09/10/19 14:58 Cholesterol 192 mg/dL (50-199) 09/10/19 14:58 LDL Cholesterol Direct 121 mg/dL (50-130) 09/10/19 14:58 HDL Cholesterol 56 mg/dL (40-59) 09/10/19 14:58 Cholesterol/HDL Ratio 3.42 % 09/10/19 14:58 TSH 3.980 mlU/mL (0.270-4.200) 09/10/19 14:58 Last Vital Signs Temp 987.8 F H 09/14/19 20:34 Pulse 60 09/14/19 21:12 Resp 18 09/14/19 20:34 BP 115/60 09/14/19 21:12 Pulse Ox 94 09/14/19 20:34
[2019-09-15] MEDS: POTASSIUM CHLORIDE ER 10 MEQ TAB PO SCH (10:25)
[2019-09-15] MEDS: PROPRANOLOL 10 MG TAB PO SCH ×2 (10:25→21:41)
[2019-09-15] MEDS: hydrOXYzine PAMOATE 25 MG CAP PO SCH (10:25)
[2019-09-15] MEDS: FUROSEMIDE 40 MG TAB PO SCH (10:25)
[2019-09-15] MEDS: ESCITALOPRAM 10 MG TAB PO SCH (10:25)
[2019-09-15] MEDS: BENZTROPINE 0.5 MG TAB PO SCH ×2 (10:26→21:44)
[2019-09-15] MEDS: risperiDONE 1 MG TAB PO SCH ×2 (10:26→21:43)
[2019-09-15] MEDS: RIVAROXABAN 10 MG TAB PO SCH (10:26)
[2019-09-15 20:22] LABS: Hematocrit 39.6 % (30.3-42.9); Hemoglobin 13.2 gm/dl (10.1-14.3); Mean Corpuscular HGB Conc 33 % (30-34); Mean Corpuscular Volume 82 fl (79-97); Platelet Count 235 K/mm3 (140-440); Red Blood Count 4.83 M/mm3 (3.65-5.03); Red Cell Distribution Width 14.8 % (13.2-15.2)
[2019-09-15 20:55] LABS: BUN/Creatinine Ratio 16; Blood Urea Nitrogen 11 mg/dL (7-17); Calcium 8.9 mg/dL (8.4-10.2); Hemolysis Index 7
[2019-09-15] MEDS: DOXEPIN 25 MG CAP PO SCH (21:40)
[2019-09-15] MEDS: PRAVASTATIN 20 MG TAB PO SCH (21:42)
[2019-09-15] MEDS ORDERED: oxyCODONE /ACETAMINOPHEN 5-325MG TAB PO PRN (22:00)
[2019-09-15] MEDS ORDERED: traMADol 50 MG TAB PO PRN (23:53)
[2019-09-15] MEDS ORDERED: traMADol 50 MG TAB PO ONE (23:58)
--- NOTE | 2019-09-16 09:53 | Progress Note ---
Subjective Date of service: 09/16/19 Principal diagnosis: Schizoaffective Disorder, Depressive Type Subjective Comment: I reviewed the patient's medical record and discussed the patient's progress with the nursing staff. Per patient chart,Received pt. resting quietly in bed, arouse-able, will continue to monitor. During my interview with the patient this morning, the patient is alert and oriented 3, dressed appropriately for the occasional, able to make needs known, she maintains eye contact. The patient reports that she did not sleep well, when asked why patient states, "I think I am depressed". Patient reports that she felt like just laying in bed, she doesn't feel like taking a shower and feeling very flat. The patient denies suicidal or homicidal ideation. Patient does report hearing music playing. The patient denies visual hallucination.The patient denies nightmare she states, " I am glad I am not having any nightmares". The patient contracted for safety. Reason for continued admission for inpatient treatment: depression/psychosis REVIEW OF SYSTEMS Constitutional: Negative for weight loss ENT: Negative for stridor Respiratory: Negative for cough or hemoptysis All other systems reviewed and are negative MSE Appearance: Dressed appropriately. Behavior: cooperative, good eye contact Mood: "depressed" Affect: labile Thought Process: Goal directed Speech: Normal tone and pace Thought Content Suicidal: Denies Homicidal: Denies Hallucinations:hearing music Delusions: denies Consciousness: Alert Cognition/Memory: Fair Insight/Judgment: Fair Assessment: Schizoaffective Disorder Plan Treatment Plan Due to the psychiatric conditions and treatment listed in the Assessment and Plan - the patient requires continued hospitalization. Will continue inpatient treatment to allow for medication adjustment and monitoring. Will continue q15 min safety checks. Will encourage the use of environmental modifications and non-pharmacologic approaches for the management of behavioral and psychological symptoms. Medication adjustments: increase zyprexa to 7.5mg to decrease depression Will continue current psych medications Monitor for medication side effects. The patient will continue on medications for physical illnesses, and Hospitalist will closely monitor these Continue intensive physical and occupational therapies. Monitor patient's mood, sleep, appetite, and behavior closely. Encourage patient to participate in individual and group therapeutic sessions on the [place]anda. Will provide a safe and therapeutic environment for patient. The patient will be treated for schizoaffective Disorder. ELOS 5 days Plan for post-hospital care: [ out-patient ] Medications and Allergies Allergies Allergy/AdvReac Type Severity Reaction Status Date / Time acetaminophen [From Lortab] Allergy Shortness Verified 02/12/19 14:14 of Breath aspirin Allergy Hives Verified 02/12/19 14:14 divalproex sodium Allergy Rash Verified 12/27/18 01:28 [From Depakote] hydrocodone [From Lortab] Allergy Hives Verified 02/12/19 14:14 latex Allergy Rash Verified 02/12/19 14:14 nut - unspecified Allergy Shortness Verified 02/12/19 14:14 of Breath oxycodone Allergy Hives Verified 02/12/19 14:14 Penicillins Allergy Rash Verified 12/26/18 18:35 propoxyphene Allergy Rash Verified 12/26/18 18:35 [From Darvocet-N] Sulfa (Sulfonamide Allergy Rash Verified 12/26/18 18:35 Antibiotics) dairy Allergy Diarrhea Uncoded 02/12/19 14:15 napsylate Allergy Hives Uncoded 02/12/19 14:14 Home Medications Medication Instructions Recorded Confirmed Last Taken Type OLANzapine [ZyPREXA] 5 mg PO QHS 02/01/19 09/11/19 08/27/19 13:00 History Benztropine [Cogentin] 0.5 mg PO BID 09/09/19 09/11/19 09/09/19 13:00 History Fluticasone [Flonase] 1 spray NS QDAY 09/09/19 09/11/19 Unknown History Furosemide [Lasix TAB] 40 mg PO QDAY 09/09/19 09/11/19 Unknown History Potassium Chloride [K-Dur] 10 meq PO QDAY 09/09/19 09/11/19 09/09/19 13:00 History Propranolol [Inderal] 10 mg PO BID 09/09/19 09/11/19 09/09/19 13:00 History Simvastatin 5 mg PO QHS 09/09/19 09/11/19 Unknown History clonazePAM 0.5 mg PO BID PRN 09/09/19 09/11/19 Unknown History hydrOXYzine HCL [Atarax] 25 mg PO TID 09/09/19 09/11/19 Unknown History Active Meds: Active Medications Benztropine Mesylate (Cogentin) 0.5 mg PO BID [facility] Last Admin: 09/15/19 21:44 Dose: 0.5 mg Documented by: Clonazepam (Klonopin) 0.5 mg PO BID PRN PRN Reason: Anxiety Doxepin HCl (Sinequan) 25 mg PO QHS [facility] Last Admin: 09/15/19 21:40 Dose: 25 mg Documented by: Escitalopram Oxalate (Lexapro) 10 mg PO QDAY [facility] Last Admin: 09/15/19 10:25 Dose: 10 mg Documented by: Furosemide (Lasix) 40 mg PO QDAY [facility] Last Admin: 09/15/19 10:25 Dose: 40 mg Documented by: Hydroxyzine HCl (Vistaril) 50 mg IM Q6H PRN PRN Reason: Anxiety Hydroxyzine Pamoate (Vistaril) 25 mg PO DAILY [facility] Last Admin: 09/15/19 10:25 Dose: 25 mg Documented by: Olanzapine (Zyprexa) 5 mg PO QHS [facility] Last Admin: 09/15/19 21:43 Dose: 5 mg Documented by: Potassium Chloride (K-Dur) 10 meq PO QDAY [facility] Last Admin: 09/15/19 10:25 Dose: 10 meq Documented by: Pravastatin Sodium (Pravachol) 10 mg PO QHS [facility] Last Admin: 09/15/19 21:42 Dose: 10 mg Documented by: Propranolol HCl (Inderal) 10 mg PO BID [facility] Last Admin: 09/15/19 21:41 Dose: 10 mg Documented by: Risperidone (Risperdal) 1 mg PO BID [facility] Last Admin: 09/15/19 21:43 Dose: 1 mg Documented by: Rivaroxaban (Xarelto) 10 mg PO QDAY [facility]; Protocol Last Admin: 09/15/19 10:26 Dose: 10 mg Documented by: Ziprasidone (Geodon) 10 mg IM Q4H PRN PRN Reason: Agitation Results - Results Labs/Vitals: Laboratory Last Values WBC 10.3 K/mm3 (4.5-11.0) 09/15/19 19:58 RBC 4.83 M/mm3 (3.65-5.03) 09/15/19 19:58 Hgb 13.2 gm/dl (10.1-14.3) 09/15/19 19:58 Hct 39.6 % (30.3-42.9) 09/15/19 19:58 MCV 82 fl (79-97) 09/15/19 19:58 MCH 27 pg (28-32) L 09/15/19 19:58 MCHC 33 % (30-34) 09/15/19 19:58 RDW 14.8 % (13.2-15.2) 09/15/19 19:58 Plt Count 235 K/mm3 (140-440) 09/15/19 19:58 Lymph % (Auto) 23.3 % (13.4-35.0) 09/10/19 14:58 [place] % (Auto) 5.4 % (0.0-7.3) 09/10/19 14:58 Eos % (Auto) 1.5 % (0.0-4.3) 09/10/19 14:58 Baso % (Auto) 0.7 % (0.0-1.8) 09/10/19 14:58 Lymph # 1.7 K/mm3 (1.2-5.4) 09/10/19 14:58 [place] # 0.4 K/mm3 (0.0-0.8) 09/10/19 14:58 Eos # 0.1 K/mm3 (0.0-0.4) 09/10/19 14:58 Baso # 0.1 K/mm3 (0.0-0.1) 09/10/19 14:58 Seg Neutrophils % 69.1 % (40.0-70.0) 09/10/19 14:58 Seg Neutrophils # 5.0 K/mm3 (1.8-7.7) 09/10/19 14:58 Sodium 140 mmol/L (137-145) 09/15/19 19:58 Potassium 4.0 mmol/L (3.6-5.0) 09/15/19 19:58 Chloride 104.6 mmol/L (98-107) 09/15/19 19:58 Carbon Dioxide 25 mmol/L (22-30) 09/15/19 19:58 Anion Gap 14 mmol/L 09/15/19 19:58 BUN 11 mg/dL (7-17) 09/15/19 19:58 Creatinine 0.7 mg/dL (0.7-1.2) 09/15/19 19:58 Estimated GFR > 60 ml/min 09/15/19 19:58 BUN/Creatinine Ratio 16 % 02/01/20 19:58 Glucose 95 mg/dL (65-100) 09/15/19 19:58 POC Glucose 82 (70-105) 09/14/19 21:09 Hemoglobin A1c 5.2 % (4-6) 09/10/19 14:58 Calcium 8.9 mg/dL (8.4-10.2) 09/15/19 19:58 Phosphorus 3.80 mg/dL (2.5-4.5) 09/15/19 19:58 Magnesium 1.90 mg/dL (1.7-2.3) 09/15/19 19:58 Total Bilirubin 0.50 mg/dL (0.1-1.2) 09/10/19 14:58 AST 17 units/L (5-40) 09/10/19 14:58 ALT 11 units/L (7-56) 09/10/19 14:58 Alkaline Phosphatase 101 units/L (35-129) 09/10/19 14:58 Total Protein 7.3 g/dL (6.3-8.2) 09/10/19 14:58 Albumin 4.2 g/dL (3.9-5) 09/10/19 14:58 Albumin/Globulin Ratio 1.4 % 09/10/19 14:58 Triglycerides 102 mg/dL (2-149) 09/10/19 14:58 Cholesterol 192 mg/dL (50-199) 09/10/19 14:58 LDL Cholesterol Direct 121 mg/dL (50-130) 09/10/19 14:58 HDL Cholesterol 56 mg/dL (40-59) 09/10/19 14:58 Cholesterol/HDL Ratio 3.42 % 09/10/19 14:58 TSH 3.980 mlU/mL (0.270-4.200) 09/10/19 14:58 Last Vital Signs Temp 98.3 F 09/15/19 22:00 Pulse 62 09/15/19 22:00 Resp 18 09/15/19 22:00 BP 114/82 09/15/19 22:00 Pulse Ox 97 09/15/19 22:00
[2019-09-16] MEDS: POTASSIUM CHLORIDE ER 10 MEQ TAB PO SCH (10:26)
[2019-09-16] MEDS: PROPRANOLOL 10 MG TAB PO SCH ×2 (10:26→21:11)
[2019-09-16] MEDS: ESCITALOPRAM 10 MG TAB PO SCH (10:26)
[2019-09-16] MEDS: RIVAROXABAN 10 MG TAB PO SCH (10:28)
[2019-09-16] MEDS: risperiDONE 1 MG TAB PO SCH ×2 (10:28→21:11)
[2019-09-16] MEDS: hydrOXYzine PAMOATE 25 MG CAP PO SCH (10:28)
[2019-09-16] MEDS: FUROSEMIDE 40 MG TAB PO SCH (10:28)
[2019-09-16] MEDS: BENZTROPINE 0.5 MG TAB PO SCH ×2 (10:28→21:11)
[2019-09-16] MEDS: PRAVASTATIN 20 MG TAB PO SCH (21:10)
[2019-09-16] MEDS: DOXEPIN 25 MG CAP PO SCH (21:11)
--- NOTE | 2019-09-17 07:42 | Progress Note ---
Subjective Date of service: 09/17/19 Principal diagnosis: Schizoaffective Disorder, Depressive Type Subjective Comment: I reviewed the patient's medical record and discussed the patient's progress with the nursing staff. Pt is medication compliant, good appetite, bright affect, mood appropriate, alert and oriented x3, calm and cooperative, denies suicidal ideation, denies a/v/h, denies any pain during this shift, self care, no complaints voiced, pt slept approximately 8hrs plus, no distress noted, safety maintained, will continue to monitor for safety. During my interview with the patient this morning, the patient is alert and oriented 3, dressed appropriately for the occasional, able to make needs known, she maintains eye contact. The patient reports that she slept better patient is still reporting depression but states, " I was able to get out of bed this morning, I am not withdrawn and I am not feeling so sad". The patient denies suicidal or homicidal ideation. The patient denies visual or auditory hallucination.The patient denies nightmare she states, " I am glad I am not having any nightmares". The patient contracted for safety. the patient reports anxiety stated," I feel jumpy at times", the patient was told to inform the nurse , so she could be medicated. Reason for continued admission for inpatient treatment: depression/psychosis REVIEW OF SYSTEMS Constitutional: Negative for weight loss ENT: Negative for stridor Respiratory: Negative for cough or hemoptysis All other systems reviewed and are negative MSE Appearance: Dressed appropriately. Behavior: cooperative, good eye contact Mood: "depressed" Affect: euthymic Thought Process: Goal directed Speech: Normal tone and pace Thought Content Suicidal: Denies Homicidal: Denies Hallucinations:denies Delusions: denies Consciousness: Alert Cognition/Memory: Fair Insight/Judgment: Fair Assessment: Schizoaffective Disorder Plan Treatment Plan Due to the psychiatric conditions and treatment listed in the Assessment and Plan - the patient requires continued hospitalization. Will continue inpatient treatment to allow for medication adjustment and monitoring. Will continue q15 min safety checks. Will encourage the use of environmental modifications and non-pharmacologic approaches for the management of behavioral and psychological symptoms. Medication adjustments: none Will continue current psych medications Monitor for medication side effects. The patient will continue on medications for physical illnesses, and Hospitalist will closely monitor these Continue intensive physical and occupational therapies. Monitor patient's mood, sleep, appetite, and behavior closely. Encourage patient to participate in individual and group therapeutic sessions on the miranda. Will provide a safe and therapeutic environment for patient. The patient will be treated for schizoaffective Disorder. ELOS 2 days Plan for post-hospital care: [ out-patient ] Medications and Allergies Allergies Allergy/AdvReac Type Severity Reaction Status Date / Time acetaminophen [From Lortab] Allergy Shortness Verified 02/12/19 14:14 of Breath aspirin Allergy Hives Verified 02/12/19 14:14 divalproex sodium Allergy Rash Verified 12/27/18 01:28 [From Depakote] hydrocodone [From Lortab] Allergy Hives Verified 02/12/19 14:14 latex Allergy Rash Verified 02/12/19 14:14 nut - unspecified Allergy Shortness Verified 02/12/19 14:14 of Breath oxycodone Allergy Hives Verified 02/12/19 14:14 Penicillins Allergy Rash Verified 12/26/18 18:35 propoxyphene Allergy Rash Verified 12/26/18 18:35 [From Darvocet-N] Sulfa (Sulfonamide Allergy Rash Verified 12/26/18 18:35 Antibiotics) dairy Allergy Diarrhea Uncoded 02/12/19 14:15 napsylate Allergy Hives Uncoded 02/12/19 14:14 Home Medications Medication Instructions Recorded Confirmed Last Taken Type OLANzapine [ZyPREXA] 5 mg PO QHS 02/01/19 09/11/19 08/27/19 13:00 History Benztropine [Cogentin] 0.5 mg PO BID 09/09/19 09/11/19 09/09/19 13:00 History Fluticasone [Flonase] 1 spray NS QDAY 09/09/19 09/11/19 Unknown History Furosemide [Lasix TAB] 40 mg PO QDAY 09/09/19 09/11/19 Unknown History Potassium Chloride [K-Dur] 10 meq PO QDAY 09/09/19 09/11/19 09/09/19 13:00 History Propranolol [Inderal] 10 mg PO BID 09/09/19 09/11/19 09/09/19 13:00 History Simvastatin 5 mg PO QHS 09/09/19 09/11/19 Unknown History clonazePAM 0.5 mg PO BID PRN 09/09/19 09/11/19 Unknown History hydrOXYzine HCL [Atarax] 25 mg PO TID 09/09/19 09/11/19 Unknown History Active Meds: Active Medications Benztropine Mesylate (Cogentin) 0.5 mg PO BID [facility] Last Admin: 09/16/19 21:11 Dose: 0.5 mg Documented by: Clonazepam (Klonopin) 0.5 mg PO BID PRN PRN Reason: Anxiety Doxepin HCl (Sinequan) 25 mg PO QHS [facility] Last Admin: 09/16/19 21:11 Dose: 25 mg Documented by: Escitalopram Oxalate (Lexapro) 10 mg PO QDAY [facility] Last Admin: 09/16/19 10:26 Dose: 10 mg Documented by: Furosemide (Lasix) 40 mg PO QDAY [facility] Last Admin: 09/16/19 10:28 Dose: 40 mg Documented by: Hydroxyzine HCl (Vistaril) 50 mg IM Q6H PRN PRN Reason: Anxiety Hydroxyzine Pamoate (Vistaril) 25 mg PO DAILY [facility] Last Admin: 09/16/19 10:28 Dose: 25 mg Documented by: Olanzapine (Zyprexa) 7.5 mg PO QHS [facility] Last Admin: 09/16/19 21:10 Dose: 7.5 mg Documented by: Potassium Chloride (K-Dur) 10 meq PO QDAY [facility] Last Admin: 09/16/19 10:26 Dose: 10 meq Documented by: Pravastatin Sodium (Pravachol) 10 mg PO QHS [facility] Last Admin: 09/16/19 21:10 Dose: 10 mg Documented by: Propranolol HCl (Inderal) 10 mg PO BID [facility] Last Admin: 09/16/19 21:11 Dose: 10 mg Documented by: Risperidone (Risperdal) 1 mg PO BID [facility] Last Admin: 09/16/19 21:11 Dose: 1 mg Documented by: Rivaroxaban (Xarelto) 10 mg PO QDAY [facility]; Protocol Last Admin: 09/16/19 10:28 Dose: 10 mg Documented by: Ziprasidone (Geodon) 10 mg IM Q4H PRN PRN Reason: Agitation Results - Results Labs/Vitals: Laboratory Last Values WBC 10.3 K/mm3 (4.5-11.0) 09/15/19 19:58 RBC 4.83 M/mm3 (3.65-5.03) 09/15/19 19:58 Hgb 13.2 gm/dl (10.1-14.3) 09/15/19 19:58 Hct 39.6 % (30.3-42.9) 09/15/19 19:58 MCV 82 fl (79-97) 09/15/19 19:58 MCH 27 pg (28-32) L 09/15/19 19:58 MCHC 33 % (30-34) 09/15/19 19:58 RDW 14.8 % (13.2-15.2) 09/15/19 19:58 Plt Count 235 K/mm3 (140-440) 09/15/19 19:58 Lymph % (Auto) 23.3 % (13.4-35.0) 09/10/19 14:58 [place] % (Auto) 5.4 % (0.0-7.3) 09/10/19 14:58 Eos % (Auto) 1.5 % (0.0-4.3) 09/10/19 14:58 Baso % (Auto) 0.7 % (0.0-1.8) 09/10/19 14:58 Lymph # 1.7 K/mm3 (1.2-5.4) 09/10/19 14:58 [place] # 0.4 K/mm3 (0.0-0.8) 09/10/19 14:58 Eos # 0.1 K/mm3 (0.0-0.4) 09/10/19 14:58 Baso # 0.1 K/mm3 (0.0-0.1) 09/10/19 14:58 Seg Neutrophils % 69.1 % (40.0-70.0) 09/10/19 14:58 Seg Neutrophils # 5.0 K/mm3 (1.8-7.7) 09/10/19 14:58 Sodium 140 mmol/L (137-145) 09/15/19 19:58 Potassium 4.0 mmol/L (3.6-5.0) 09/15/19 19:58 Chloride 104.6 mmol/L (98-107) 09/15/19 19:58 Carbon Dioxide 25 mmol/L (22-30) 09/15/19 19:58 Anion Gap 14 mmol/L 09/15/19 19:58 BUN 11 mg/dL (7-17) 09/15/19 19:58 Creatinine 0.7 mg/dL (0.7-1.2) 09/15/19 19:58 Estimated GFR > 60 ml/min 09/15/19 19:58 BUN/Creatinine Ratio 16 % 09/15/19 19:58 Glucose 95 mg/dL (65-100) 09/15/19 19:58 POC Glucose 82 (70-105) 09/14/19 21:09 Hemoglobin A1c 5.2 % (4-6) 09/10/19 14:58 Calcium 8.9 mg/dL (8.4-10.2) 09/15/19 19:58 Phosphorus 3.80 mg/dL (2.5-4.5) 09/15/19 19:58 Magnesium 1.90 mg/dL (1.7-2.3) 09/15/19 19:58 Total Bilirubin 0.50 mg/dL (0.1-1.2) 09/10/19 14:58 AST 17 units/L (5-40) 09/10/19 14:58 ALT 11 units/L (7-56) 09/10/19 14:58 Alkaline Phosphatase 101 units/L (35-129) 09/10/19 14:58 Total Protein 7.3 g/dL (6.3-8.2) 09/10/19 14:58 Albumin 4.2 g/dL (3.9-5) 09/10/19 14:58 Albumin/Globulin Ratio 1.4 % 09/10/19 14:58 Triglycerides 102 mg/dL (2-149) 09/10/19 14:58 Cholesterol 192 mg/dL (50-199) 09/10/19 14:58 LDL Cholesterol Direct 121 mg/dL (50-130) 09/10/19 14:58 HDL Cholesterol 56 mg/dL (40-59) 09/10/19 14:58 Cholesterol/HDL Ratio 3.42 % 09/10/19 14:58 TSH 3.980 mlU/mL (0.270-4.200) 09/10/19 14:58 Last Vital Signs Temp 98.8 F 09/16/19 19:40 Pulse 63 09/16/19 21:11 Resp 18 09/16/19 19:40 BP 130/59 09/16/19 21:11 Pulse Ox 96 09/16/19 19:40
[2019-09-17] MEDS: POTASSIUM CHLORIDE ER 10 MEQ TAB PO SCH (09:35)
[2019-09-17] MEDS: ESCITALOPRAM 10 MG TAB PO SCH (09:35)
[2019-09-17] MEDS: FUROSEMIDE 40 MG TAB PO SCH (09:36)
[2019-09-17] MEDS: RIVAROXABAN 10 MG TAB PO SCH (09:36)
[2019-09-17] MEDS: BENZTROPINE 0.5 MG TAB PO SCH ×2 (09:38→21:58)
[2019-09-17] MEDS: hydrOXYzine PAMOATE 25 MG CAP PO SCH (09:38)
[2019-09-17] MEDS: PROPRANOLOL 10 MG TAB PO SCH ×2 (09:38→21:56)
[2019-09-17] MEDS: risperiDONE 1 MG TAB PO SCH ×2 (10:44→21:57)
[2019-09-17] MEDS: PRAVASTATIN 20 MG TAB PO SCH (21:55)
[2019-09-17] MEDS: DOXEPIN 25 MG CAP PO SCH (21:58)
--- NOTE | 2019-09-18 08:23 | Discharge Summary ---
Providers - Providers Date of Admission: 09/10/19 14:03 Date of discharge: 09/18/19 Attending physician: JHONNY AGUILERA MD 09/10/19 12:32 Consult to Physician [CONS] Routine Comment: Consulting Provider: JORDEN AGUILAR Physician Instructions: Reason For Exam: manage medical conditons Primary care physician: [employer] Hospitalization Condition: Stable Hospital course: The patient was provided inpatient psychiatric treatment with safe and supportive environment, group/individual therapy, psychiatric medication, medication adjustment, adverse effect monitor, medical evaluation, medical treatment, social service assessment, social support meeting, placement assessment and psycho-education. The patients mood, cognition, behavior, motivation, compliance to treatment and appreciation on family/social support are improved and stabilized. At the time of discharge, the patient had no suicidal ideas, no homicidal ideas, no aggressive thoughts, no endangering behavior and no debilitating adverse effects. The patient agreed on the treatment plan, understood the risk, benefit, alternative treatment, potential consequence of no treatment, and gave informed consent. Disposition: - TO HOME OR SELFCARE Time spent for discharge: 38 Allergies/Adverse Reactions: Allergies acetaminophen [From Lortab] Allergy (Verified 02/12/19 14:14) Shortness of Breath aspirin Allergy (Verified 02/12/19 14:14) Hives divalproex sodium [From Depakote] Allergy (Verified 12/27/18 01:28) Rash hydrocodone [From Lortab] Allergy (Verified 02/12/19 14:14) Hives latex Allergy (Verified 02/12/19 14:14) Rash nut - unspecified Allergy (Verified 02/12/19 14:14) Shortness of Breath oxycodone Allergy (Verified 02/12/19 14:14) Hives Penicillins Allergy (Verified 12/26/18 18:35) Rash propoxyphene [From Darvocet-N] Allergy (Verified 12/26/18 18:35) Rash Sulfa (Sulfonamide Antibiotics) Allergy (Verified 12/26/18 18:35) Rash dairy Allergy (Uncoded 02/12/19 14:15) Diarrhea napsylate Allergy (Uncoded 02/12/19 14:14) Hives Vital Signs: Last Vital Signs Temp 98.6 F 09/17/19 19:39 Pulse 63 09/17/19 21:56 Resp 18 09/17/19 19:39 BP 138/56 09/17/19 21:56 Pulse Ox 96 09/17/19 19:39 Last Lab: Laboratory Last Values WBC 10.3 K/mm3 (4.5-11.0) 09/15/19 19:58 RBC 4.83 M/mm3 (3.65-5.03) 09/15/19 19:58 Hgb 13.2 gm/dl (10.1-14.3) 09/15/19 19:58 Hct 39.6 % (30.3-42.9) 09/15/19 19:58 MCV 82 fl (79-97) 09/15/19 19:58 MCH 27 pg (28-32) L 09/15/19 19:58 MCHC 33 % (30-34) 09/15/19 19:58 RDW 14.8 % (13.2-15.2) 09/15/19 19:58 Plt Count 235 K/mm3 (140-440) 09/15/19 19:58 Lymph % (Auto) 23.3 % (13.4-35.0) 09/10/19 14:58 [place] % (Auto) 5.4 % (0.0-7.3) 09/10/19 14:58 Eos % (Auto) 1.5 % (0.0-4.3) 09/10/19 14:58 Baso % (Auto) 0.7 % (0.0-1.8) 09/10/19 14:58 Lymph # 1.7 K/mm3 (1.2-5.4) 09/10/19 14:58 [place] # 0.4 K/mm3 (0.0-0.8) 09/10/19 14:58 Eos # 0.1 K/mm3 (0.0-0.4) 09/10/19 14:58 Baso # 0.1 K/mm3 (0.0-0.1) 09/10/19 14:58 Seg Neutrophils % 69.1 % (40.0-70.0) 09/10/19 14:58 Seg Neutrophils # 5.0 K/mm3 (1.8-7.7) 09/10/19 14:58 Sodium 140 mmol/L (137-145) 09/15/19 19:58 Potassium 4.0 mmol/L (3.6-5.0) 09/15/19 19:58 Chloride 104.6 mmol/L (98-107) 09/15/19 19:58 Carbon Dioxide 25 mmol/L (22-30) 09/15/19 19:58 Anion Gap 14 mmol/L 09/15/19 19:58 BUN 11 mg/dL (7-17) 09/15/19 19:58 Creatinine 0.7 mg/dL (0.7-1.2) 09/15/19 19:58 Estimated GFR > 60 ml/min 09/15/19 19:58 BUN/Creatinine Ratio 16 % 09/15/19 19:58 Glucose 95 mg/dL (65-100) 09/15/19 19:58 POC Glucose 82 (70-105) 09/14/19 21:09 Hemoglobin A1c 5.2 % (4-6) 09/10/19 14:58 Calcium 8.9 mg/dL (8.4-10.2) 09/15/19 19:58 Phosphorus 3.80 mg/dL (2.5-4.5) 09/15/19 19:58 Magnesium 1.90 mg/dL (1.7-2.3) 09/15/19 19:58 Total Bilirubin 0.50 mg/dL (0.1-1.2) 09/10/19 14:58 AST 17 units/L (5-40) 09/10/19 14:58 ALT 11 units/L (7-56) 09/10/19 14:58 Alkaline Phosphatase 101 units/L (35-129) 09/10/19 14:58 Total Protein 7.3 g/dL (6.3-8.2) 09/10/19 14:58 Albumin 4.2 g/dL (3.9-5) 09/10/19 14:58 Albumin/Globulin Ratio 1.4 % 09/10/19 14:58 Triglycerides 102 mg/dL (2-149) 09/10/19 14:58 Cholesterol 192 mg/dL (50-199) 09/10/19 14:58 LDL Cholesterol Direct 121 mg/dL (50-130) 09/10/19 14:58 HDL Cholesterol 56 mg/dL (40-59) 09/10/19 14:58 Cholesterol/HDL Ratio 3.42 % 09/10/19 14:58 TSH 3.980 mlU/mL (0.270-4.200) 09/10/19 14:58 Core Measure Documentation - Palliative Care Palliative Care/ Comfort Measures: Not Applicable - Core Measures Any of the following diagnoses?: none Exam - Constitutional Vitals: Temp Pulse Resp BP Pulse Ox 98.6 F 63 18 138/56 96 09/17/19 19:39 09/17/19 21:56 09/17/19 19:39 09/17/19 21:56 09/17/19 19:39 General appearance: Present: no acute distress, well-nourished - EENT Eyes: Present: PERRL, EOM intact ENT: hearing intact, clear oral mucosa - Neck Neck: Present: supple, normal ROM - Respiratory Respiratory effort: normal Plan Activity: advance as tolerated Weight Bearing Status: Weight Bear as Tolerated Care Plan Goals: Maintain good and stable mental health Plan of Treatment: The patient should be compliant with medications, not to use drugs and not to drink alcohol. The patient understands that if suicidal ideas, homicidal ideas, or any endangering thoughts arise, the patient should immediately seek for emergent assistance including but not limited to crisis hot line and emergency room. Follow up with outpatient Psychiatrist and PCP within 7 - 14 days of discharge. Health Concerns: Afib, CHF, Hyperlipidemia, Hyperthyroidism Assessment: Schizoaffective Disorder, Depressive Type Follow up with: PRIMARY CARE, [Primary Care Provider] - 7 Days Prescriptions: Simvastatin 5 mg PO QHS #30 Doxepin [SINEquan] 25 mg PO QHS #30 capsule OLANzapine [ZyPREXA] 5 mg PO QHS #30 hydrOXYzine HCL [Atarax] 25 mg PO TID #90 clonazePAM 0.5 mg PO BID PRN #60 PRN Reason: Anxiety Benztropine [Cogentin] 0.5 mg PO BID #60 Propranolol [Inderal] 10 mg PO BID #60 Potassium Chloride [K-Dur] 10 meq PO QDAY #30 Furosemide [Lasix TAB] 40 mg PO QDAY #30 Escitalopram [Lexapro] 10 mg PO QDAY #30 tablet risperiDONE [RisperDAL] 1 mg PO BID #60 tablet
[2019-09-18] MEDS: BENZTROPINE 0.5 MG TAB PO SCH (09:23)
[2019-09-18] MEDS: FUROSEMIDE 40 MG TAB PO SCH (09:23)
[2019-09-18] MEDS: hydrOXYzine PAMOATE 25 MG CAP PO SCH (09:23)
[2019-09-18 09:24] VITALS: BP 128/70
[2019-09-18] MEDS: PROPRANOLOL 10 MG TAB PO SCH (09:24)
[2019-09-18] MEDS: ESCITALOPRAM 10 MG TAB PO SCH (09:24)
[2019-09-18] MEDS: RIVAROXABAN 10 MG TAB PO SCH (09:25)
[2019-09-18] MEDS: POTASSIUM CHLORIDE ER 10 MEQ TAB PO SCH (09:25)
[2019-09-18] MEDS: risperiDONE 1 MG TAB PO SCH (12:18)
== END 2019-09-18 15:36 | disposition home or self-care (01) | DRG 885 ==
LOC: UNDOADMIN 12:15 → 3A 12:15 → 5A 14:03
PROVIDERS: ADMIT Psychiatry & Neurology Psychiatry; ATTEND Psychiatry & Neurology Psychiatry
DX: F25.1 Schizoaffective disorder, depressive type (principal); I50.32 Chronic diastolic (congestive) heart failure; I48.91 Unspecified atrial fibrillation; E03.9 Hypothyroidism, unspecified; J45.909 Unspecified asthma, uncomplicated; G47.33 Obstructive sleep apnea (adult) (pediatric); G51.0 Bell's palsy; I48.0 Paroxysmal atrial fibrillation; E78.2 Mixed hyperlipidemia; F41.9 Anxiety disorder, unspecified; Z79.899 Other long term (current) drug therapy; Z88.2 Allergy status to sulfonamides; Z88.8 Allergy status to other drugs, medicaments and biological substances; Z88.6 Allergy status to analgesic agent; Z91.040 Latex allergy status; Z88.5 Allergy status to narcotic agent; Z91.018 Allergy to other foods; Z90.49 Acquired absence of other specified parts of digestive tract; Z86.718 Personal history of other venous thrombosis and embolism; Z79.01 Long term (current) use of anticoagulants; Z90.89 Acquired absence of other organs; Z82.49 Family history of ischemic heart disease and other diseases of the circulatory system
CPT/HCPCS: 36415; 80048; 80053; 80061; 82962; 83036; 83735; 84100; 84443; 85025; 85027; 90686; G0378; A9270-GY; J3246; J3410; Q0177

== ENCOUNTER 2019-10-04 18:41 | Emergency (ER) | payer MEDICARE ==
--- NOTE | 2019-10-04 19:27 | Emergency Department Report ---
ED Chest Pain HPI - General Chief Complaint: Chest Pain Stated Complaint: CHEST PAIN Time Seen by Provider: 10/04/19 19:13 Source: patient, EMS Mode of arrival: Stretcher Limitations: Physical Limitation - History of Present Illness Initial Comments: Patient is 49 years old female with history of congestive heart failure, hypertension, diabetes atrial fibrillation. Patient presented to the ER complaining of chest pain, substernal with radiation to her jaw. Patient stated the pain started this morning. Patient is also complaining of shortness of b reath and generalized weakness. Patient denied any fever or chills. MD Complaint: chest pain -: This morning Onset: during rest Pain Location: substernal, left chest Pain Radiation: none Quality: tightness Improves With: nitroglycerin - Related Data Home Medications Medication Instructions Recorded Confirmed Last Taken Fluticasone [Flonase] 1 spray NS QDAY 09/09/19 09/11/19 Unknown Previous Rx's Medication Instructions Recorded Last Taken Type Benztropine [Cogentin] 0.5 mg PO BID #60 09/18/19 Unknown Rx Doxepin [SINEquan] 25 mg PO QHS #30 capsule 09/18/19 Unknown Rx Escitalopram [Lexapro] 10 mg PO QDAY #30 tablet 09/18/19 Unknown Rx Furosemide [Lasix TAB] 40 mg PO QDAY #30 09/18/19 Unknown Rx OLANzapine [ZyPREXA] 5 mg PO QHS #30 09/18/19 Unknown Rx Potassium Chloride [K-Dur] 10 meq PO QDAY #30 09/18/19 Unknown Rx Simvastatin 5 mg PO QHS #30 09/18/19 Unknown Rx clonazePAM 0.5 mg PO BID PRN #60 09/18/19 Unknown Rx hydrOXYzine HCL [Atarax] 25 mg PO TID #90 09/18/19 Unknown Rx propranoloL [Inderal] 10 mg PO BID #60 09/18/19 Unknown Rx risperiDONE [RisperDAL] 1 mg PO BID #60 tablet 09/18/19 Unknown Rx Allergies Allergy/AdvReac Type Severity Reaction Status Date / Time acetaminophen [From Lortab] Allergy Shortness Verified 02/12/19 14:14 of Breath aspirin Allergy Hives Verified 02/12/19 14:14 divalproex sodium Allergy Rash Verified 12/27/18 01:28 [From Depakote] hydrocodone [From Lortab] Allergy Hives Verified 02/12/19 14:14 latex Allergy Rash Verified 02/12/19 14:14 nut - unspecified Allergy Shortness Verified 02/12/19 14:14 of Breath oxycodone Allergy Hives Verified 02/12/19 14:14 Penicillins Allergy Rash Verified 12/26/18 18:35 propoxyphene Allergy Rash Verified 12/26/18 18:35 [From Darvocet-N] Sulfa (Sulfonamide Allergy Rash Verified 12/26/18 18:35 Antibiotics) dairy Allergy Diarrhea Uncoded 02/12/19 14:15 napsylate Allergy Hives Uncoded 02/12/19 14:14 Heart Score - HEART Score History: Moderately suspicious EKG: Non-specific Age: 45-65 Risk factors: > 3 risk factors or hx of atherosclerotic disease Troponin: < normal limit HEART Score: 5 - Critical Actions Critical Actions: 4-6 pts:12-16.6% risk of adverse cardiac event. Should be admitted ED Review of Systems ROS: Stated complaint: CHEST PAIN Other details as noted in HPI Comment: All other systems reviewed and negative Constitutional: denies: chills, fever Respiratory: orthopnea, shortness of breath, SOB with exertion, SOB at rest. denies: cough Cardiovascular: chest pain. denies: palpitations Gastrointestinal: denies: abdominal pain, nausea, vomiting Musculoskeletal: denies: back pain Neurological: denies: headache, weakness, numbness, paresthesias, confusion ED Past Medical Hx - Past Medical History Previous Medical History?: Yes Hx Hypertension: Yes Hx Congestive Heart Failure: Yes Hx Diabetes: Yes Hx Deep Vein Thrombosis: Yes Hx Psychiatric Treatment: Yes (Bipolar Depressed schizo affective, anxiety) Hx Asthma: Yes Hx COPD: No Additional medical history: Hypothyroidism, sleep apnea, DVT, Chronic Back pain, Gastritis, IBS. Hyperlipidemia, Ovarian cyst. Stubbs's palsey - Surgical History Past Surgical History?: Yes Hx Cholecystectomy: Yes Additional Surgical History: Tonsilectomy, Uterine Ablation, Hernia repair, D&C. 2 molar pulled. stiched to nasal cavity. Right Rotator cuff repair. - Social History Smoking Status: Never Smoker Substance Use Type: None - Medications Home Medications: Home Medications Medication Instructions Recorded Confirmed Last Taken Type Fluticasone [Flonase] 1 spray NS QDAY 09/09/19 09/11/19 Unknown History Benztropine [Cogentin] 0.5 mg PO BID #60 09/18/19 Unknown Rx Doxepin [SINEquan] 25 mg PO QHS #30 capsule 09/18/19 Unknown Rx Escitalopram [Lexapro] 10 mg PO QDAY #30 tablet 09/18/19 Unknown Rx Furosemide [Lasix TAB] 40 mg PO QDAY #30 09/18/19 Unknown Rx OLANzapine [ZyPREXA] 5 mg PO QHS #30 09/18/19 Unknown Rx Potassium Chloride [K-Dur] 10 meq PO QDAY #30 09/18/19 Unknown Rx Simvastatin 5 mg PO QHS #30 09/18/19 Unknown Rx clonazePAM 0.5 mg PO BID PRN #60 09/18/19 Unknown Rx hydrOXYzine HCL [Atarax] 25 mg PO TID #90 09/18/19 Unknown Rx propranoloL [Inderal] 10 mg PO BID #60 09/18/19 Unknown Rx risperiDONE [RisperDAL] 1 mg PO BID #60 tablet 09/18/19 Unknown Rx ED Physical Exam - General Limitations: Physical Limitation General appearance: alert, in distress (Moderate respiratory distress) - Head Head exam: Present: atraumatic, normocephalic, normal inspection - Eye Eye exam: Present: normal appearance - ENT ENT exam: Present: normal exam, normal orophraynx, mucous membranes moist - Neck Neck exam: Present: normal inspection, full ROM. Absent: tenderness, meningis mus, lymphadenopathy, thyromegaly - Respiratory Respiratory exam: Present: normal lung sounds bilaterally - Cardiovascular Cardiovascular Exam: Present: regular rate, bradycardia, normal heart sounds - GI/Abdominal GI/Abdominal exam: Present: soft, normal bowel sounds. Absent: distended, tenderness, guarding, rebound, rigid, organomegaly, mass, bruit, pulsatile mass, hernia - Extremities Exam Extremities exam: Present: normal inspection, full ROM, normal capillary refill, pedal edema. Absent: tenderness, calf tenderness - Back Exam Back exam: Present: normal inspection, full ROM. Absent: CVA tenderness (R), CVA tenderness (L), muscle spasm - Neurological Exam Neurological exam: Present: alert, oriented X3, CN II-XII intact - Psychiatric Psychiatric exam: Present: normal mood - Skin Skin exam: Present: warm, intact, normal color ED Course Vital Signs 10/04/19 10/04/19 10/04/19 19:09 19:21 21:00 Temperature 97.8 F Pulse Rate 48 L 52 L 53 L Respiratory 20 17 Rate Blood Pressure 123/72 Blood Pressure 111/71 [Right] O2 Sat by Pulse 99 98 Oximetry MARU score - Maru Score Age > 65: (0) No Aspirin use within the Past 7 Days: (1) Yes 3 or more CAD Risk Factors: (1) Yes 2 or more Angina events in past 24 hrs: (1) Yes Known CAD with more than 50% Stenosis: (0) No Elevated Cardiac Markers: (0) No ST Deviation Greater than 0.5mm: (0) No MARU Score: 3 ED Medical Decision Making - Lab Data Result diagrams: 10/04/19 19:21 10/04/19 19:21 - EKG Data -: EKG Interpreted by In EKG shows normal: sinus rhythm Rate: bradycardia - EKG Data Interpretation: no acute changes - Radiology Data Radiology results: report reviewed - Medical Decision Making Patient is 49 years old female with history of congestive heart failure, hypertension, diabetes atrial fibrillation. Patient presented to the ER complaining of chest pain, substernal with radiation to her jaw. Patient stated the pain started this morning. Patient is also complaining of shortness of breath and generalized weakness. Patient denied any fever or chills. EKG showed a sinus bradycardia, no ST elevation or depression. Chest x-ray is unremarkable with no evidence of pulmonary congestion. Labs reviewed and is unremarkable including 2- troponin. Patient stated that chest pain is completely resolved. Patient advised to follow-up with her primary care physician in the next 2 to 3 days for possible outpatient cardiac work-up. And to return to the ER if symptoms are not improved. Critical care attestation.: If time is entered above; I have spent that time in minutes in the direct care of this critically ill patient, excluding procedure time. ED Disposition Clinical Impression: Chest pain Disposition: DC-01 TO HOME OR SELFCARE Is pt being admited?: No Condition: Stable Instructions: Chest Pain (ED) Referrals: PRIMARY CARE, [Primary Care Provider] - 3-5 Days
[2019-10-04 19:43] LABS: Basophils % (Auto) 0.4 % (0.0-1.8); Eosinophils # (Auto) 0.3 K/mm3 (0.0-0.4); Eosinophils % (Auto) 3.7 % (0.0-4.3); Hematocrit 37.3 % (30.3-42.9); Hemoglobin 12.4 gm/dl (10.1-14.3); Lymphocytes # (Auto) 2.6 K/mm3 (1.2-5.4); Mean Corpuscular HGB Conc 33 % (30-34); Mean Corpuscular Volume 84 fl (79-97); Monocytes # (Auto) 0.4 K/mm3 (0.0-0.8); Monocytes % (Auto) 5.5 % (0.0-7.3); Platelet Count 272 K/mm3 (140-440); Red Blood Count 4.47 M/mm3 (3.65-5.03); Red Cell Distribution Width 14.5 % (13.2-15.2)
[2019-10-04 20:01] LABS: INR 1.1 (0.87-1.13)
[2019-10-04 20:03] LABS: Partial Thromboplastin Time 39.6 Sec. (24.2-36.6)
[2019-10-04 20:05] LABS: Alanine Aminotransferase 11 units/L (7-56); Albumin 3.9 g/dL (3.9-5); BUN/Creatinine Ratio 23; Blood Urea Nitrogen 16 mg/dL (7-17); Calcium 9.2 mg/dL (8.4-10.2); Hemolysis Index 62
[2019-10-04 20:10] LABS: Bilirubin,Direct < 0.2 mg/dL (0-0.2)
--- NOTE | 2019-10-04 20:24 | XRay Report ---
CHEST 1 VIEW INDICATION: Chest Pain. COMPARISON: None FINDINGS: SUPPORT DEVICES: None. HEART / MEDIASTINUM: No significant abnormality. LUNGS / PLEURA: No significant pulmonary or pleural abnormality. No pneumothorax. ADDITIONAL FINDINGS: IMPRESSION: 1. No acute cardiopulmonary disease Signer Name: Maico Davila MD Signed: 10/04/2019 8:20 PM Workstation Name: [id number]
[2019-10-04 21:01] VITALS: BP 111/71
== END 2019-10-04 23:55 | disposition home or self-care (01) ==
LOC: ED 18:41
DX: R07.89 Other chest pain (principal); I11.0 Hypertensive heart disease with heart failure; I50.9 Heart failure, unspecified; E11.9 Type 2 diabetes mellitus without complications; J45.909 Unspecified asthma, uncomplicated; F31.9 Bipolar disorder, unspecified; F25.9 Schizoaffective disorder, unspecified; E05.00 Thyrotoxicosis with diffuse goiter without thyrotoxic crisis or storm; G51.0 Bell's palsy; G89.29 Other chronic pain; Z86.718 Personal history of other venous thrombosis and embolism; Z79.01 Long term (current) use of anticoagulants; Z90.49 Acquired absence of other specified parts of digestive tract; Z90.89 Acquired absence of other organs; Z98.890 Other specified postprocedural states; Z88.6 Allergy status to analgesic agent; Z88.0 Allergy status to penicillin; Z91.018 Allergy to other foods; Z91.040 Latex allergy status
CPT/HCPCS: 36415; 71045; 80048; 80076; 83880; 84484; 85025; 85610; 85730; 93005; 93010

== ENCOUNTER 2019-10-19 14:05 | Emergency (ER) | payer MEDICARE ==
--- NOTE | 2019-10-19 16:13 | Event Note ---
ED Screening Note Date of service: 10/19/19 Time: 16:08 ED Screening Note: This is a 49 y.o. F. that presents to the ER with right sided facial pain since last night. Reports pain to right jaw is worse when she attempt to eat. States it feel like someone hit her in the face. Pain 9/10 on pain scale This initial assessment/diagnostic orders/clinical plan/treatment(s) is/are subject to change based on patients health status, clinical progression and re- assessment by fellow clinical providers in the ED. Further treatment and workup at subsequent clinical providers discretion. Patient/guardian urged not to elope from the ED as their condition may be serious if not clinically assessed and managed. Initial orders include:
[2019-10-19] MEDS ORDERED: ACYCLOVIR 800 MG TAB PO ONE (17:19)
[2019-10-19] MEDS ORDERED: KETOROLAC 30 MG/1 ML INJ IM ONE (17:19)
[2019-10-19] MEDS ORDERED: methylPREDNISolone Sod Succinate 125 MG/2 ML INJ IM ONE (17:19)
--- NOTE | 2019-10-19 18:19 | Emergency Department Report ---
ED General Adult HPI - General Chief complaint: Dental/Oral Stated complaint: JAW PAIN,EAR PAIN, TONGUE, VISION BLURRED Time Seen by Provider: 10/19/19 16:07 Source: patient, EMS Mode of arrival: Ambulatory Limitations: No Limitations - History of Present Illness Initial comments: This is a 49-year-old female who presents the ED complaining of right jaw pain and some numbness that started yesterday afternoon. 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 Patient states that this is similar to her Stubbs's palsy symptoms. Patient states that pain is localized to the right jaw area. Patient also states that pain is worsening with eating. She denies fever/chills/nausea vomiting/abdominal pain/chest pain/any neurological complaints. , Severity scale (0 -10): 10 - Related Data Home Medications Medication Instructions Recorded Confirmed Last Taken Fluticasone [Flonase] 1 spray NS QDAY 09/09/19 09/11/19 Unknown Previous Rx's Medication Instructions Recorded Last Taken Type Benztropine [Cogentin] 0.5 mg PO BID #60 09/18/19 Unknown Rx Doxepin [SINEquan] 25 mg PO QHS #30 capsule 09/18/19 Unknown Rx Escitalopram [Lexapro] 10 mg PO QDAY #30 tablet 09/18/19 Unknown Rx Furosemide [Lasix TAB] 40 mg PO QDAY #30 09/18/19 Unknown Rx OLANzapine [ZyPREXA] 5 mg PO QHS #30 09/18/19 Unknown Rx Potassium Chloride [K-Dur] 10 meq PO QDAY #30 09/18/19 Unknown Rx Simvastatin 5 mg PO QHS #30 09/18/19 Unknown Rx clonazePAM 0.5 mg PO BID PRN #60 09/18/19 Unknown Rx hydrOXYzine HCL [Atarax] 25 mg PO TID #90 09/18/19 Unknown Rx propranoloL [Inderal] 10 mg PO BID #60 09/18/19 Unknown Rx risperiDONE [RisperDAL] 1 mg PO BID #60 tablet 09/18/19 Unknown Rx Ketorolac [Toradol] 10 mg PO Q6H PRN #30 tablet 10/19/19 Unknown Rx Valacyclovir HCl [Valacyclovir] 1,000 mg PO TID #21 tablet 10/19/19 Unknown Rx predniSONE [Deltasone] 60 mg PO QDAY #21 tab 10/19/19 Unknown Rx Allergies Allergy/AdvReac Type Severity Reaction Status Date / Time acetaminophen [From Lortab] Allergy Shortness Verified 02/12/19 14:14 of Breath aspirin Allergy Hives Verified 02/12/19 14:14 divalproex sodium Allergy Rash Verified 12/27/18 01:28 [From Depakote] hydrocodone [From Lortab] Allergy Hives Verified 02/12/19 14:14 latex Allergy Rash Verified 02/12/19 14:14 nut - unspecified Allergy Shortness Verified 02/12/19 14:14 of Breath oxycodone Allergy Hives Verified 02/12/19 14:14 Penicillins Allergy Rash Verified 12/26/18 18:35 propoxyphene Allergy Rash Verified 12/26/18 18:35 [From Darvocet-N] Sulfa (Sulfonamide Allergy Rash Verified 12/26/18 18:35 Antibiotics) dairy Allergy Diarrhea Uncoded 02/12/19 14:15 napsylate Allergy Hives Uncoded 02/12/19 14:14 ED Review of Systems ROS: Stated complaint: JAW PAIN,EAR PAIN, TONGUE, VISION BLURRED Other details as noted in HPI Comment: All other systems reviewed and negative ED Past Medical Hx - Past Medical History Previous Medical History?: Yes Hx Hypertension: Yes Hx Congestive Heart Failure: Yes Hx Diabetes: Yes Hx Deep Vein Thrombosis: Yes Hx Renal Disease: No Hx Arthritis: No Hx Seizures: No Hx Psychiatric Treatment: Yes (Bipolar Depressed schizo affective, anxiety) Hx Asthma: Yes Hx COPD: No Additional medical history: Hypothyroidism, sleep apnea, DVT, Chronic Back pain, Gastritis, IBS. Hyperlipidemia, Ovarian cyst. Stubbs's palsey - Surgical History Past Surgical History?: Yes Hx Cholecystectomy: Yes Hx Appendectomy: No Additional Surgical History: Tonsilectomy, Uterine Ablation, Hernia repair, D&C. 2 molar pulled. stiched to nasal cavity. Right Rotator cuff repair. - Social History Smoking Status: Never Smoker Substance Use Type: None - Medications Home Medications: Home Medications Medication Instructions Recorded Confirmed Last Taken Type Fluticasone [Flonase] 1 spray NS QDAY 09/09/19 09/11/19 Unknown History Benztropine [Cogentin] 0.5 mg PO BID #60 09/18/19 Unknown Rx Doxepin [SINEquan] 25 mg PO QHS #30 capsule 09/18/19 Unknown Rx Escitalopram [Lexapro] 10 mg PO QDAY #30 tablet 09/18/19 Unknown Rx Furosemide [Lasix TAB] 40 mg PO QDAY #30 09/18/19 Unknown Rx OLANzapine [ZyPREXA] 5 mg PO QHS #30 09/18/19 Unknown Rx Potassium Chloride [K-Dur] 10 meq PO QDAY #30 09/18/19 Unknown Rx Simvastatin 5 mg PO QHS #30 09/18/19 Unknown Rx clonazePAM 0.5 mg PO BID PRN #60 09/18/19 Unknown Rx hydrOXYzine HCL [Atarax] 25 mg PO TID #90 09/18/19 Unknown Rx propranoloL [Inderal] 10 mg PO BID #60 09/18/19 Unknown Rx risperiDONE [RisperDAL] 1 mg PO BID #60 tablet 09/18/19 Unknown Rx Ketorolac [Toradol] 10 mg PO Q6H PRN #30 tablet 10/19/19 Unknown Rx Valacyclovir HCl [Valacyclovir] 1,000 mg PO TID #21 tablet 10/19/19 Unknown Rx predniSONE [Deltasone] 60 mg PO QDAY #21 tab 10/19/19 Unknown Rx ED Physical Exam - General Limitations: No Limitations General appearance: alert, in no apparent distress - Head Head exam: Present: atraumatic, normocephalic - Eye Eye exam: Present: normal appearance, PERRL Pupils: Present: normal accommodation - ENT ENT exam: Present: normal exam, mucous membranes moist, other (No swelling, no erythema of the facen or jaw, no loss of sensation) - Expanded ENT Exam Expanded Ear exam: Present: normal external inspection Mouth exam: Present: normal external inspection Teeth exam: Present: normal inspection Throat exam: Positive: normal inspection - Neck Neck exam: Present: normal inspection, full ROM, other (No TMJ clicking, jaw pain with opening and closing mouth in the right side,). Absent: tenderness - Respiratory Respiratory exam: Present: normal lung sounds bilaterally. Absent: respiratory distress - Cardiovascular Cardiovascular Exam: Present: regular rate, normal rhythm. Absent: systolic murmur, diastolic murmur, rubs, gallop - GI/Abdominal GI/Abdominal exam: Present: soft, normal bowel sounds - Extremities Exam Extremities exam: Present: normal inspection - Back Exam Back exam: Present: normal inspection - Neurological Exam Neurological exam: Present: alert, oriented X3, CN II-XII intact, normal gait - Psychiatric Psychiatric exam: Present: normal affect, normal mood - Skin Skin exam: Present: warm, dry, intact, normal color. Absent: rash ED Course Vital Signs 10/19/19 10/19/19 16:06 19:07 Temperature 99.1 F Pulse Rate 54 L 56 L Respiratory 18 18 Rate Blood Pressure 146/86 Blood Pressure 138/82 [Right] O2 Sat by Pulse 96 96 Oximetry ED Medical Decision Making - Medical Decision Making This is a 49-year-old female with a who presents with Stubbs palsy of the right side. Patient had no neurological deficit prior or during ED stay. Patient received pain medication in ED. Discussed with patient to take medication as prescribed. Vital signs are normal she is in no acute or respiratory distress. Discussed important to follow-up with her neurologist or primary care in the next 3 to 5 days. Discussed with patient that if she is having any worsening symptoms to return to ED immediately. Critical care attestation.: If time is entered above; I have spent that time in minutes in the direct care of this critically ill patient, excluding procedure time. ED Disposition Clinical Impression: Stubbs's palsy, TMJ (temporomandibular joint disorder) Disposition: DC-01 TO HOME OR SELFCARE Is pt being admited?: No Does the pt Need Aspirin: No Condition: Stable Instructions: Stubbs Palsy (ED), Temporomandibular Disorder (ED) Additional Instructions: Make sure to follow up with the primary care physician as discussed. Take all your medications as you've been prescribed. If you have any worsening symptoms or develop new symptoms please return to ED immediately. Prescriptions: predniSONE [Deltasone] 60 mg PO QDAY #21 tab Ketorolac [Toradol] 10 mg PO Q6H PRN #30 tablet PRN Reason: Pain Valacyclovir HCl [Valacyclovir] 1,000 mg PO TID #21 tablet Referrals: PRIMARY MD QUIRINO [Primary Care Provider] - 3-5 Days MARRY WING MD [Staff Physician] - 3-5 Days [facility] [Provider Group] - 3-5 Days [facility] [Provider Group] - 3-5 Days Forms: Accompanied Note, Work/School Release Form(ED) Time of Disposition: 18:25
[2019-10-19 19:08] VITALS: BP 138/82
== END 2019-10-19 19:07 | disposition home or self-care (01) ==
LOC: ED 14:05
DX: G51.0 Bell's palsy (principal); M26.69 Other specified disorders of temporomandibular joint; I11.0 Hypertensive heart disease with heart failure; I50.9 Heart failure, unspecified; E11.9 Type 2 diabetes mellitus without complications; J45.909 Unspecified asthma, uncomplicated; F25.0 Schizoaffective disorder, bipolar type; G89.29 Other chronic pain; Z90.49 Acquired absence of other specified parts of digestive tract; Z90.89 Acquired absence of other organs; Z79.899 Other long term (current) drug therapy; Z88.6 Allergy status to analgesic agent; Z88.0 Allergy status to penicillin; Z91.018 Allergy to other foods; Z91.040 Latex allergy status
CPT/HCPCS: 96372; 99283; J1885; J2930

== ENCOUNTER 2019-11-26 20:25 | Emergency (ER) | payer MEDICARE ==
[2019-11-26] MEDS ORDERED: MORPHINE 2 MG/1 ML INJ IV ONE (21:27)
[2019-11-26] MEDS ORDERED: ONDANSETRON 4 MG/2 ML INJ IV ONE (21:27)
--- NOTE | 2019-11-26 21:34 | Emergency Department Report ---
ED Fall HPI - General Chief Complaint: Fall Stated Complaint: GROUND LEVEL FALL/HIP PAIN Time Seen by Provider: 11/26/19 21:23 Source: patient, EMS Mode of arrival: Stretcher - History of Present Illness Initial Comments: 49-year-old female with history of CHF, HTN, diabetes, bipolar disorder, blood clots, Stubbs's palsy, presents to ED status post fall at home. Patient states s he was in her kitchen, bending over to take groceries out of her bag. Patient states she then stood up and turned to go to her room, and then began to feel lightheaded. Patient passed out. Patient currently reports left hip pain, lower back pain, left chest wall pain. Patient states she is unable to move her left foot and states the left foot is numb. Sensation is intact throughout the entire left hip and lower leg. MD Complaint: fall -: This evening Fall From: standing When Fall Occurred: just prior to arrival Place Fall Occurred: home Loss of Consciousness: yes Symptoms Prior to Fall: lightheadedness Location: back, other (left hip) Severity: moderate Context: other (syncope) Associated Symptoms: numbness (left foot), unable to walk, lightheaded. denies: headache, neck pain, chest paint, shortness of breath, abdominal pain - Related Data Home Medications Medication Instructions Recorded Confirmed Last Taken Fluticasone [Flonase] 1 spray NS QDAY 09/09/19 09/11/19 Unknown Previous Rx's Medication Instructions Recorded Last Taken Type Benztropine [Cogentin] 0.5 mg PO BID #60 09/18/19 Unknown Rx Doxepin [SINEquan] 25 mg PO QHS #30 capsule 09/18/19 Unknown Rx Escitalopram [Lexapro] 10 mg PO QDAY #30 tablet 09/18/19 Unknown Rx Furosemide [Lasix TAB] 40 mg PO QDAY #30 09/18/19 Unknown Rx OLANzapine [ZyPREXA] 5 mg PO QHS #30 09/18/19 Unknown Rx Potassium Chloride [K-Dur] 10 meq PO QDAY #30 09/18/19 Unknown Rx Simvastatin 5 mg PO QHS #30 09/18/19 Unknown Rx clonazePAM 0.5 mg PO BID PRN #60 09/18/19 Unknown Rx hydrOXYzine HCL [Atarax] 25 mg PO TID #90 09/18/19 Unknown Rx propranoloL [Inderal] 10 mg PO BID #60 09/18/19 Unknown Rx risperiDONE [RisperDAL] 1 mg PO BID #60 tablet 09/18/19 Unknown Rx Ketorolac [Toradol] 10 mg PO Q6H PRN #30 tablet 10/19/19 Unknown Rx Valacyclovir HCl [Valacyclovir] 1,000 mg PO TID #21 tablet 10/19/19 Unknown Rx predniSONE [Deltasone] 60 mg PO QDAY #21 tab 10/19/19 Unknown Rx methOCARBAMOL [Robaxin TAB] 500 mg PO Q8HR PRN #20 tablet 11/27/19 Unknown Rx Allergies Allergy/AdvReac Type Severity Reaction Status Date / Time acetaminophen [From Lortab] Allergy Shortness Verified 02/12/19 14:14 of Breath aspirin Allergy Hives Verified 02/12/19 14:14 divalproex sodium Allergy Rash Verified 12/27/18 01:28 [From Depakote] hydrocodone [From Lortab] Allergy Hives Verified 02/12/19 14:14 latex Allergy Rash Verified 02/12/19 14:14 nut - unspecified Allergy Shortness Verified 02/12/19 14:14 of Breath oxycodone Allergy Hives Verified 02/12/19 14:14 Penicillins Allergy Rash Verified 12/26/18 18:35 propoxyphene Allergy Rash Verified 12/26/18 18:35 [From Darvocet-N] Sulfa (Sulfonamide Allergy Rash Verified 12/26/18 18:35 Antibiotics) dairy Allergy Diarrhea Uncoded 02/12/19 14:15 napsylate Allergy Hives Uncoded 02/12/19 14:14 ED Review of Systems ROS: Stated complaint: GROUND LEVEL FALL/HIP PAIN Other details as noted in HPI Comment: All other systems reviewed and negative Constitutional: denies: chills, fever Respiratory: denies: cough, shortness of breath Cardiovascular: denies: chest pain Gastrointestinal: denies: abdominal pain, nausea, vomiting Neurological: numbness. denies: headache ED Past Medical Hx - Past Medical History Previous Medical History?: Yes Hx Hypertension: Yes Hx Congestive Heart Failure: Yes Hx Diabetes: Yes Hx Deep Vein Thrombosis: Yes Hx Renal Disease: No Hx Arthritis: No Hx Seizures: No Hx Psychiatric Treatment: Yes (Bipolar Depressed schizo affective, anxiety) Hx Asthma: Yes Hx COPD: No Additional medical history: Hypothyroidism, sleep apnea, DVT, Chronic Back pain, Gastritis, IBS. Hyperlipidemia, Ovarian cyst. Stubbs's palsey - Surgical History Past Surgical History?: Yes Hx Cholecystectomy: Yes Hx Appendectomy: No Additional Surgical History: Tonsilectomy, Uterine Ablation, Hernia repair, D&C. 2 molar pulled. stiched to nasal cavity. Right Rotator cuff repair. - Social History Smoking Status: Never Smoker - Medications Home Medications: Home Medications Medication Instructions Recorded Confirmed Last Taken Type Fluticasone [Flonase] 1 spray NS QDAY 09/09/19 09/11/19 Unknown History Benztropine [Cogentin] 0.5 mg PO BID #60 09/18/19 Unknown Rx Doxepin [SINEquan] 25 mg PO QHS #30 capsule 09/18/19 Unknown Rx Escitalopram [Lexapro] 10 mg PO QDAY #30 tablet 09/18/19 Unknown Rx Furosemide [Lasix TAB] 40 mg PO QDAY #30 09/18/19 Unknown Rx OLANzapine [ZyPREXA] 5 mg PO QHS #30 09/18/19 Unknown Rx Potassium Chloride [K-Dur] 10 meq PO QDAY #30 09/18/19 Unknown Rx Simvastatin 5 mg PO QHS #30 09/18/19 Unknown Rx clonazePAM 0.5 mg PO BID PRN #60 09/18/19 Unknown Rx hydrOXYzine HCL [Atarax] 25 mg PO TID #90 09/18/19 Unknown Rx propranoloL [Inderal] 10 mg PO BID #60 09/18/19 Unknown Rx risperiDONE [RisperDAL] 1 mg PO BID #60 tablet 09/18/19 Unknown Rx Ketorolac [Toradol] 10 mg PO Q6H PRN #30 tablet 10/19/19 Unknown Rx Valacyclovir HCl [Valacyclovir] 1,000 mg PO TID #21 tablet 10/19/19 Unknown Rx predniSONE [Deltasone] 60 mg PO QDAY #21 tab 10/19/19 Unknown Rx methOCARBAMOL [Robaxin TAB] 500 mg PO Q8HR PRN #20 tablet 11/27/19 Unknown Rx ED Physical Exam - General Limitations: Physical Limitation General appearance: alert, in no apparent distress - Head Head exam: Present: atraumatic, normocephalic - Eye Eye exam: Present: normal appearance - ENT ENT exam: Present: mucous membranes moist - Neck Neck exam: Present: normal inspection, full ROM. Absent: tenderness - Respiratory Respiratory exam: Present: normal lung sounds bilaterally, chest wall tenderness (left lateral). Absent: respiratory distress - Cardiovascular Cardiovascular Exam: Present: regular rate, normal rhythm - GI/Abdominal GI/Abdominal exam: Present: soft, tenderness (mild LUQ tenderness). Absent: distended - Extremities Exam Extremities exam: Present: normal inspection, tenderness (left hip) - Back Exam Back exam: Present: vertebral tenderness (lower lumbar) - Neurological Exam Neurological exam: Present: alert, oriented X3, motor sensory deficit (sensation intact to left thigh and lower leg; decreased sensation to entire foot; pt not moving the left foot) - Psychiatric Psychiatric exam: Present: normal affect, normal mood - Skin Skin exam: Present: warm, dry, intact, normal color ED Course Vital Signs 11/26/19 11/26/19 11/26/19 21:01 23:01 23:47 Temperature 98.5 F Pulse Rate 89 60 Respiratory 18 20 Rate Blood Pressure 130/80 Blood Pressure 130/90 130/80 [Right] O2 Sat by Pulse 98 98 99 Oximetry - Reevaluation(s) Reevaluation #1: 11/27/19 00:01 Sensation now intact in left foot. Able to feel light touch. Reevaluation #2: 11/27/19 00:40 CT's negative. Patient able to move left foot. Able to get up out of stretcher and ambulate. Feeling much better at this time. Will d/c home. ED Medical Decision Making - Lab Data Result diagrams: 11/26/19 21:36 11/26/19 21:36 - EKG Data -: EKG Interpreted by Oh EKG shows normal: sinus rhythm, axis, intervals, QRS complexes, ST-T waves Rate: normal - EKG Data Interpretation: no acute changes - Radiology Data Radiology results: report reviewed, image reviewed - Medical Decision Making 49 yo F, s/p syncopal episode at home. Reports feeling lightheaded prior to passing out. Vitals signs normal, stable. EKG normal. Trauma workup negative. Pt ambulatory, feeling better. WIll d/c home. Advised outpt follow-up. - Differential Diagnosis arrythmia, dehydration, intracranial injury, arrythmia Critical care attestation.: If time is entered above; I have spent that time in minutes in the direct care of this critically ill patient, excluding procedure time. ED Disposition Clinical Impression: Syncope, Chest wall contusion, Contusion of left hip, Acute lumbosacral myofascial strain, Acute cervical myofascial strain Disposition: TO HOME OR SELFCARE Is pt being admited?: No Condition: Stable Instructions: Muscle Strain (ED), Syncope (ED) Prescriptions: methOCARBAMOL [Robaxin TAB] 500 mg PO Q8HR PRN #20 tablet PRN Reason: Muscle Spasm Referrals: LUIS WATKINS MD [Primary Care Provider] - 3-5 Days Time of Disposition: 00:36
[2019-11-26 21:53] LABS: Basophils # (Auto) 0.1 K/mm3 (0.0-0.1); Basophils % (Auto) 0.8 % (0.0-1.8); Eosinophils # (Auto) 0.3 K/mm3 (0.0-0.4); Eosinophils % (Auto) 3.1 % (0.0-4.3); Hematocrit 40.6 % (30.3-42.9); Hemoglobin 13.3 gm/dl (10.1-14.3); Lymphocytes # (Auto) 2.2 K/mm3 (1.2-5.4); Lymphocytes % (Auto) 21.5 % (13.4-35.0); Mean Corpuscular HGB Conc 33 % (30-34); Mean Corpuscular Volume 84 fl (79-97); Monocytes # (Auto) 0.7 K/mm3 (0.0-0.8); Monocytes % (Auto) 7.2 % (0.0-7.3); Platelet Count 295 K/mm3 (140-440); Red Blood Count 4.86 M/mm3 (3.65-5.03); Red Cell Distribution Width 14.1 % (13.2-15.2)
[2019-11-26 22:02] LABS: INR 0.99 (0.87-1.13)
[2019-11-26 22:05] LABS: Partial Thromboplastin Time 35.5 Sec. (24.2-36.6)
[2019-11-26 22:18] LABS: BUN/Creatinine Ratio 14; Blood Urea Nitrogen 14 mg/dL (7-17); Calcium 9.1 mg/dL (8.4-10.2); Hemolysis Index 9
[2019-11-26 22:23] LABS: Alanine Aminotransferase 14 units/L (7-56); Albumin 4.2 g/dL (3.9-5)
[2019-11-26 22:24] LABS: Bilirubin,Direct < 0.2 mg/dL (0-0.2)
[2019-11-26 23:56] VITALS: BP 130/80
--- NOTE | 2019-11-27 00:09 | Cat Scan Report ---
CT HEAD WITHOUT CONTRAST INDICATION / CLINICAL INFORMATION: Pt complains of a syncopal episode.. TECHNIQUE: All CT scans at this location are performed using CT dose reduction for ALARA by means of automated e xposure control. COMPARISON: CT dated 02/19/19 FINDINGS: HEMORRHAGE: None. EXTRA-AXIAL SPACES: Normal in size and morphology for the patient's age. VENTRICULAR SYSTEM: Normal in size and morphology for the patient's age. CEREBRAL PARENCHYMA: No significant abnormality. No acute territorial infarct. MIDLINE SHIFT OR HERNIATION: None. CEREBELLUM / BRAINSTEM: No significant abnormality. ORBITS: Normal as visualized. SOFT TISSUES of HEAD: No significant abnormality. CALVARIUM: No significant abnormality. PARANASAL SINUSES / MASTOID AIR CELLS: Normal as visualized. ADDITIONAL FINDINGS: None. IMPRESSION: 1. No acute intracranial abnormality. No change. Signer Name: Katlin Chaves MD Signed: 11/27/2019 12:05 AM Workstation Name: [id number]
--- NOTE | 2019-11-27 00:12 | Cat Scan Report ---
CT CERVICAL SPINE WITHOUT CONTRAST INDICATION / CLINICAL INFORMATION: Syncopal episode with fall, now with neck pain.. TECHNIQUE: Axial CT images were obtained through the cervical spine. Sagittal and coronal reformatted images wer e produced. All CT scans at this location are performed using CT dose reduction for ALARA by means of automated exposure control. COMPARISON: None available. FINDINGS: VERTEBRAE: No significant abnormality. ALIGNMENT: No significant abnormality. DISC SPACES: No significant abnormality. FACET JOINTS: No significant abnormality. CRANIOCERVICAL JUNCTION:No significant abnormality. SPINAL CANAL: No significant abnormality. PARASPINAL SOFT TISSUES: No significant abnormality. ADDITIONAL FINDINGS: None. LUNG APICES: No significant abnormality of visualized lungs. IMPRESSION: 1. No significant abnormality. Signer Name: Katlin Chaves MD Signed: 11/27/2019 12:07 AM Workstation Name: [id number]
--- NOTE | 2019-11-27 00:19 | Cat Scan Report ---
CT CHEST, ABDOMEN, AND PELVIS WITH IV CONTRAST INDICATION / CLINICAL INFORMATION: Post-fall, Pt complains of LEFT rib pain Omnipaque 300 / 100ml's was used for this exam.. TECHNIQUE: Axial CT images were obtained through the chest, abdomen, and pelvis after IV contrast. All CT scans at this location are performed using CT dose reduction for ALARA by means of automated exposure contr ol. COMPARISON: CT abdomen dated 01/06/19 FINDINGS: HEART: No significant abnormality. THORACIC AORTA: No significant abnormality. MEDIASTINUM and ROSHAN: No significant abnormality. LUNGS: Linear scar in the lingula is unchanged. No acute airspace disease. PLEURA: No significant pleural effusion. No pneumothorax. ADDITIONAL CHEST FINDINGS: None. LIVER: No significant abnormality. GALLBLADDER: Surgically absent BILE DUCTS: No significant abnormality. PANCREAS: No significant abnormality. SPLEEN: No significant abnormality. ADRENALS: No significant abnormality. RIGHT KIDNEY and URETER: No significant abnormality. LEFT KIDNEY and URETER: No significant abnormality. STOMACH and SMALL BOWEL: No significant abnormality. COLON: No significant abnormality. APPENDIX: No significant abnormality. PERITONEUM: No free fluid. No free air. No fluid collection. LYMPH NODES: No significant adenopathy. AORTA and ARTERIES: No significant abnormality. IVC and VEINS: No significant abnormality. URINARY BLADDER: Bladder is moderately distended. No acute abnormality. REPRODUCTIVE ORGANS: 3 cm right adnexal cyst is unchanged. No acute abnormality. ADDITIONAL FINDINGS: None. SKELETAL SYSTEM: No significant abnormality. IMPRESSION: 1. No acute abnormality of the chest, abdomen, or pelvis. 2. Stable 3 cm right adnexal cyst. Signer Name: Katlin Chaves MD Signed: 11/27/2019 12:15 AM Workstation Name: [id number]
== END 2019-11-27 00:47 | disposition home or self-care (01) ==
LOC: ED 20:25
DX: S16.1XXA Strain of muscle, fascia and tendon at neck level, initial encounter (principal); S39.012A Strain of muscle, fascia and tendon of lower back, initial encounter; S70.02XA Contusion of left hip, initial encounter; S20.212A Contusion of left front wall of thorax, initial encounter; I11.0 Hypertensive heart disease with heart failure; I50.9 Heart failure, unspecified; E11.9 Type 2 diabetes mellitus without complications; J45.909 Unspecified asthma, uncomplicated; G51.0 Bell's palsy; E03.9 Hypothyroidism, unspecified; Z90.49 Acquired absence of other specified parts of digestive tract; Z90.89 Acquired absence of other organs; F25.0 Schizoaffective disorder, bipolar type; Z79.899 Other long term (current) drug therapy; Z86.718 Personal history of other venous thrombosis and embolism; Z79.01 Long term (current) use of anticoagulants; Z88.6 Allergy status to analgesic agent
CPT/HCPCS: 36415; 70450; 71260; 72125; 74177; 80048; 80076; 84484; 84703; 85025; 85610; 85730; 93005; 93010; 96374; 96375; 99284; J2270; J2405; Q9967

== ENCOUNTER 2020-04-27 06:56 | Emergency (ER) | payer MEDICARE ==
--- NOTE | 2020-04-27 10:45 | Emergency Department Report ---
ED Fall HPI - General Chief Complaint: Fall Stated Complaint: FALL Time Seen by Provider: 04/27/20 10:17 Source: patient, EMS Mode of arrival: Ambulatory - History of Present Illness Initial Comments: Patient is 50 years old female with history of CHF. [facility] after patient was admitted for suicidal ideation. Patient stated that she was stepping out of shower this morning when she slipped and fell landed on her right side. Patient is complaining of right shoulder pain and mild headache. Patient is not sure if she passed out or not. Patient stated that she was lightheaded this morning. Patient denied any focal weakness, numbness or tingling sensation. No bowel or bladder incontinence. Patient also denied any neck pain or neck injury. MD Complaint: fall -: Sudden, This morning Fall From: standing Fall Witnessed: yes, by living facility s Place Fall Occurred: other (Psychiatric facility) Loss of Consciousness: unsure Prolonged Down Time?: no Symptoms Prior to Fall: lightheadedness Location: head Location - Extremities: Right: Shoulder Severity: moderate Context: tripped/slipped - Related Data Home Medications Medication Instructions Recorded Confirmed Last Taken Fluticasone [Flonase] 1 spray NS QDAY 09/09/19 09/11/19 Unknown Previous Rx's Medication Instructions Recorded Last Taken Type Benztropine [Cogentin] 0.5 mg PO BID #60 09/18/19 Unknown Rx Doxepin [SINEquan] 25 mg PO QHS #30 capsule 09/18/19 Unknown Rx Escitalopram [Lexapro] 10 mg PO QDAY #30 tablet 09/18/19 Unknown Rx Furosemide [Lasix TAB] 40 mg PO QDAY #30 09/18/19 Unknown Rx OLANzapine [ZyPREXA] 5 mg PO QHS #30 09/18/19 Unknown Rx Potassium Chloride [K-Dur] 10 meq PO QDAY #30 09/18/19 Unknown Rx Simvastatin 5 mg PO QHS #30 09/18/19 Unknown Rx clonazePAM 0.5 mg PO BID PRN #60 09/18/19 Unknown Rx hydrOXYzine HCL [Atarax] 25 mg PO TID #90 09/18/19 Unknown Rx propranoloL [Inderal] 10 mg PO BID #60 09/18/19 Unknown Rx risperiDONE [RisperDAL] 1 mg PO BID #60 tablet 09/18/19 Unknown Rx Ketorolac [Toradol] 10 mg PO Q6H PRN #30 tablet 10/19/19 Unknown Rx Valacyclovir HCl [Valacyclovir] 1,000 mg PO TID #21 tablet 10/19/19 Unknown Rx predniSONE [Deltasone] 60 mg PO QDAY #21 tab 10/19/19 Unknown Rx methOCARBAMOL [Robaxin TAB] 500 mg PO Q8HR PRN #20 tablet 11/27/19 Unknown Rx Allergies Allergy/AdvReac Type Severity Reaction Status Date / Time acetaminophen [From Lortab] Allergy Shortness Verified 02/12/19 14:14 of Breath aspirin Allergy Hives Verified 02/12/19 14:14 divalproex sodium Allergy Rash Verified 12/27/18 01:28 [From Depakote] hydrocodone [From Lortab] Allergy Hives Verified 02/12/19 14:14 latex Allergy Rash Verified 02/12/19 14:14 nut - unspecified Allergy Shortness Verified 02/12/19 14:14 of Breath oxycodone Allergy Hives Verified 02/12/19 14:14 Penicillins Allergy Rash Verified 12/26/18 18:35 propoxyphene Allergy Rash Verified 12/26/18 18:35 [From Darvocet-N] Sulfa (Sulfonamide Allergy Rash Verified 12/26/18 18:35 Antibiotics) dairy Allergy Diarrhea Uncoded 02/12/19 14:15 napsylate Allergy Hives Uncoded 02/12/19 14:14 ED Review of Systems ROS: Stated complaint: FALL Other details as noted in HPI Comment: All other systems reviewed and negative Constitutional: denies: chills, fever Respiratory: denies: cough, orthopnea, shortness of breath Cardiovascular: denies: chest pain, palpitations, dyspnea on exertion Gastrointestinal: denies: abdominal pain, nausea, vomiting Musculoskeletal: denies: back pain Neurological: denies: headache, weakness, numbness, paresthesias, confusion, abnormal gait ED Past Medical Hx - Past Medical History Previous Medical History?: Yes Hx Hypertension: Yes Hx Congestive Heart Failure: Yes Hx Diabetes: Yes Hx Deep Vein Thrombosis: Yes Hx Renal Disease: No Hx Arthritis: No Hx Seizures: No Hx Psychiatric Treatment: Yes (Bipolar Depressed schizo affective, anxiety) Hx Asthma: Yes Hx COPD: No Additional medical history: Hypothyroidism, sleep apnea, DVT, Chronic Back pain, Gastritis, IBS. Hyperlipidemia, Ovarian cyst. Stubbs's palsey - Surgical History Past Surgical History?: Yes Hx Cholecystectomy: Yes Hx Appendectomy: No Additional Surgical History: Tonsilectomy, Uterine Ablation, Hernia repair, D&C. 2 molar pulled. stiched to nasal cavity. Right Rotator cuff repair. - Social History Smoking Status: Never Smoker Substance Use Type: Prescribed - Medications Home Medications: Home Medications Medication Instructions Recorded Confirmed Last Taken Type Fluticasone [Flonase] 1 spray NS QDAY 09/09/19 09/11/19 Unknown History Benztropine [Cogentin] 0.5 mg PO BID #60 09/18/19 Unknown Rx Doxepin [SINEquan] 25 mg PO QHS #30 capsule 09/18/19 Unknown Rx Escitalopram [Lexapro] 10 mg PO QDAY #30 tablet 09/18/19 Unknown Rx Furosemide [Lasix TAB] 40 mg PO QDAY #30 09/18/19 Unknown Rx OLANzapine [ZyPREXA] 5 mg PO QHS #30 09/18/19 Unknown Rx Potassium Chloride [K-Dur] 10 meq PO QDAY #30 09/18/19 Unknown Rx Simvastatin 5 mg PO QHS #30 09/18/19 Unknown Rx clonazePAM 0.5 mg PO BID PRN #60 09/18/19 Unknown Rx hydrOXYzine HCL [Atarax] 25 mg PO TID #90 09/18/19 Unknown Rx propranoloL [Inderal] 10 mg PO BID #60 09/18/19 Unknown Rx risperiDONE [RisperDAL] 1 mg PO BID #60 tablet 09/18/19 Unknown Rx Ketorolac [Toradol] 10 mg PO Q6H PRN #30 tablet 10/19/19 Unknown Rx Valacyclovir HCl [Valacyclovir] 1,000 mg PO TID #21 tablet 10/19/19 Unknown Rx predniSONE [Deltasone] 60 mg PO QDAY #21 tab 10/19/19 Unknown Rx methOCARBAMOL [Robaxin TAB] 500 mg PO Q8HR PRN #20 tablet 11/27/19 Unknown Rx ED Physical Exam - General Limitations: No Limitations General appearance: alert, in no apparent distress - Head Head exam: Present: atraumatic, normocephalic, normal inspection - Eye Eye exam: Present: normal appearance, PERRL - ENT ENT exam: Present: normal exam, normal orophraynx, mucous membranes moist - Neck Neck exam: Present: normal inspection, full ROM. Absent: tenderness, me ningismus, lymphadenopathy, thyromegaly - Respiratory Respiratory exam: Present: normal lung sounds bilaterally. Absent: chest wall tenderness - Cardiovascular Cardiovascular Exam: Present: regular rate, normal rhythm, normal heart sounds - GI/Abdominal GI/Abdominal exam: Present: soft, normal bowel sounds. Absent: distended, tenderness, guarding, rebound, rigid, organomegaly, mass, bruit, pulsatile mass, hernia - Extremities Exam Extremities exam: Present: normal inspection, full ROM, normal capillary refill. Absent: pedal edema, calf tenderness - Back Exam Back exam: Present: normal inspection, full ROM. Absent: CVA tenderness (R), CVA tenderness (L) - Neurological Exam Neurological exam: Present: alert, oriented X3, CN II-XII intact - Psychiatric Psychiatric exam: Present: normal mood - Skin Skin exam: Present: warm, intact, normal color ED Course Vital Signs 04/27/20 04/27/20 07:24 10:10 Temperature 98.2 F Pulse Rate 59 L Respiratory 18 18 Rate Blood Pressure 116/74 O2 Sat by Pulse 96 Oximetry ED Medical Decision Making - Lab Data Result diagrams: 04/27/20 10:50 04/27/20 10:50 - Radiology Data Radiology results: report reviewed - Medical Decision Making Patient is 50 years old female with history of CHF. Patient brought to the emergency room from [facility] after patient was admitted for suicidal ideation. Patient stated that she was stepping out of shower this morning when she slipped and fell landed on her right side. Patient is complaining of right shoulder pain and mild headache. Patient is not sure if she passed out or not. Patient stated that she was lightheaded this morning. Patient denied any focal weakness, numbness or tingling sensation. No bowel or bladder incontinence. Patient also denied any neck pain or neck injury. EKG showed a sinus bradycardia. Patient is on propanolol and that may be contributing to her bradycardia. CT brain is negative for acute finding. Right shoulder x-ray is unremarkable. Patient received morphine for pain. Patient lightheadedness might be from the recent change of her clonidine dose and time however labs reviewed and showed no abnormalities. Patient advised to follow-up with her primary doctor in the next 2 to 3 days and to return to the ER if she develop any new symptoms. Critical care attestation.: If time is entered above; I have spent that time in minutes in the direct care of this critically ill patient, excluding procedure time. ED Disposition Clinical Impression: Head injury, Injury of right shoulder, Dizziness Disposition: DC-01 TO HOME OR SELFCARE Is pt being admited?: No Condition: Stable Instructions: Fall Prevention (ED), Lightheadedness (ED), Bradycardia (ED) Referrals: LUIS WATKINS MD [Primary Care Provider] - 3-5 Days
--- NOTE | 2020-04-27 11:12 | XRay Report ---
RIGHT SHOULDER 3 VIEWS INDICATION / CLINICAL INFORMATION: Fall with right shoulder injury and pain. COMPARISON: None available. FINDINGS: BONES / JOINT(S): There are mild degenerative changes involving the glenohumeral joint. There is no e vidence of fracture or subluxation. SOFT TISSUES: No significant abnormality. ADDITIONAL FINDINGS: The visualized right lung is clear. Signer Name: Chidi Phelps MD Signed: 04/27/2020 11:08 AM Workstation Name: [id number]
[2020-04-27 11:24] LABS: Basophils # (Auto) 0.1 K/mm3 (0.0-0.1); Basophils % (Auto) 0.7 % (0.0-1.8); Eosinophils # (Auto) 0.2 K/mm3 (0.0-0.4); Eosinophils % (Auto) 2.1 % (0.0-4.3); Hematocrit 37.3 % (30.3-42.9); Hemoglobin 12.3 gm/dl (10.1-14.3); Lymphocytes # (Auto) 1.7 K/mm3 (1.2-5.4); Lymphocytes % (Auto) 23.9 % (13.4-35.0); Mean Corpuscular HGB Conc 33 % (30-34); Mean Corpuscular Volume 82 fl (79-97); Monocytes # (Auto) 0.4 K/mm3 (0.0-0.8); Monocytes % (Auto) 6.3 % (0.0-7.3); Platelet Count 254 K/mm3 (140-440); Red Blood Count 4.58 M/mm3 (3.65-5.03); Red Cell Distribution Width 14.8 % (13.2-15.2)
[2020-04-27 11:32] LABS: BUN/Creatinine Ratio 18; Blood Urea Nitrogen 14 mg/dL (7-17); Calcium 9.2 mg/dL (8.4-10.2); Hemolysis Index 8
--- NOTE | 2020-04-27 11:57 | Cat Scan Report ---
CT HEAD/BRAIN WO CON INDICATION / CLINICAL INFORMATION: Fall with head injury and loss of consciousness this morning. TECHNIQUE: All CT scans at this location are performed using CT dose reduction for ALARA by means of automated e xposure control. COMPARISON: 11/26/19. FINDINGS: The ventricular system is normal in size and configuration. A low-lying right cerebellar tonsil has n ot changed. No focal lesion or mass effect is seen. There is no evidence of intracranial hemorrhage o r major vessel occlusion. The calvarium is intact. The visualized paranasal sinuses and mastoid air cells are clear. IMPRESSION:No acute abnormality or significant change. Signer Name: Chidi Phelps MD Signed: 04/27/2020 11:52 AM Workstation Name: [id number]
[2020-04-27] MEDS ORDERED: MORPHINE 4 MG/1 ML INJ IM ONE (12:20)
[2020-04-27] MEDS ORDERED: ONDANSETRON 4 MG/2 ML INJ IM ONE (12:20)
[2020-04-27 13:13] VITALS: BP 129/66
== END 2020-04-27 13:14 | disposition home or self-care (01) ==
LOC: ED 06:56
DX: S49.91XA Unspecified injury of right shoulder and upper arm, initial encounter (principal); S09.90XA Unspecified injury of head, initial encounter; R42 Dizziness and giddiness; I11.0 Hypertensive heart disease with heart failure; I50.9 Heart failure, unspecified; E11.9 Type 2 diabetes mellitus without complications; F41.9 Anxiety disorder, unspecified; F25.0 Schizoaffective disorder, bipolar type; J45.909 Unspecified asthma, uncomplicated; E03.9 Hypothyroidism, unspecified; E78.5 Hyperlipidemia, unspecified; Z90.49 Acquired absence of other specified parts of digestive tract; Z98.890 Other specified postprocedural states; Z79.899 Other long term (current) drug therapy; Z88.6 Allergy status to analgesic agent; Z88.8 Allergy status to other drugs, medicaments and biological substances; W01.0XXA Fall on same level from slipping, tripping and stumbling without subsequent striking against object, initial encounter; Y93.89 Activity, other specified; Y92.89 Other specified places as the place of occurrence of the external cause; Y99.8 Other external cause status
CPT/HCPCS: 36415; 70450; 73030; 80048; 84484; 85025; 93005; 96372; 99285; J2270; J2405

== ENCOUNTER 2020-06-23 13:36 | Emergency (ER) | payer MEDICARE ==
--- NOTE | 2020-06-23 14:16 | Emergency Department Report ---
Blank Doc - Documentation Documentation: 50-year-old female that presents with dysuria, abd pain with n/v. This initial assessment/diagnostic orders/clinical plan/treatment(s) is/are subject to change based on patient's health status, clinical progression and re- assessment by fellow clinical providers in the ED. Further treatment and workup at subsequent clinical providers discretion. Patient/guardians urged not to elope from the ED as their condition may be serious if not clinically assessed and managed. Initial orders include: 1- Patient sent to [facility] for further evaluation and treatment 2- labs 3- UA
[2020-06-23 15:04] LABS: Basophils # (Auto) 0.1 K/mm3 (0.0-0.1); Eosinophils # (Auto) 0.1 K/mm3 (0.0-0.4); Eosinophils % (Auto) 1.9 % (0.0-4.3); Hematocrit 40.9 % (30.3-42.9); Hemoglobin 13.6 gm/dl (10.1-14.3); Lymphocytes # (Auto) 1.9 K/mm3 (1.2-5.4); Lymphocytes % (Auto) 25.4 % (13.4-35.0); Mean Corpuscular HGB Conc 33 % (30-34); Mean Corpuscular Volume 83 fl (79-97); Monocytes # (Auto) 0.5 K/mm3 (0.0-0.8); Monocytes % (Auto) 6.1 % (0.0-7.3); Platelet Count 268 K/mm3 (140-440); Red Blood Count 4.93 M/mm3 (3.65-5.03); Red Cell Distribution Width 14.8 % (13.2-15.2)
[2020-06-23 15:24] LABS: Alanine Aminotransferase 15 units/L (7-56); Albumin 4.3 g/dL (3.9-5); Blood Urea Nitrogen 7 mg/dL (7-17); Calcium 9.2 mg/dL (8.4-10.2); Hemolysis Index 1
[2020-06-23 15:26] LABS: BUN/Creatinine Ratio 10
[2020-06-23 17:37] LABS: Bacteria,Urine 2+ /HPF (Negative); Bilirubin,Urine NEG (Negative); Blood,Urine NEG (Negative); Color,Urine Yellow (Yellow); Mucus,Urine 2+ /HPF; Protein,Urine <15 mg/dL mg/dL (Negative); Urobilinogen,Urine < 2.0 mg/dL (<2.0)
[2020-06-23 17:38] LABS: HCG Qualitative,Urine Negative (Negative)
--- NOTE | 2020-06-23 18:44 | Emergency Department Report ---
ED Abdominal Pain HPI - General Chief Complaint: Abdominal Pain Stated Complaint: LT FLANK PAINS Time Seen by Provider: 06/23/20 14:13 Source: patient Mode of arrival: Wheelchair Limitations: No Limitations - History of Present Illness Initial Comments: 50-year-old female with history of GERD, irritable bowel syndrome, CHF, asthma, diabetes, hypertension, DVT on Xarelto, hypothyroidism, bipolar disorder, presents to ED with abdominal pain x1 day. She reports pain in the right lower quadrant, left upper quadrant, and epigastric area. Patient states she is unsure if this could be an exacerbation of her irritable bowel syndrome. Patient reports she just finished a 5-day course of Macrobid for a UTI. She reports some associated nausea, however no vomiting. Patient states she has been taking Zofran at home for her nausea. Patient feels like she may still have A UTI. MD Complaint: abdominal pain -: This morning Location: LUQ, RLQ, epigastric Radiation: none Migration to: no migration Severity: mild Quality: sharp Consistency: intermittent Improves With: nothing Worsens With: nothing Associated Symptoms: nausea. denies: vomiting, diarrhea, fever, dysuria - Related Data Home Medications Medication Instructions Recorded Confirmed Last Taken Fluticasone [Flonase] 1 spray NS QDAY 09/09/19 09/11/19 Unknown Previous Rx's Medication Instructions Recorded Last Taken Type Benztropine [Cogentin] 0.5 mg PO BID #60 09/18/19 Unknown Rx Doxepin [SINEquan] 25 mg PO QHS #30 capsule 09/18/19 Unknown Rx Escitalopram [Lexapro] 10 mg PO QDAY #30 tablet 09/18/19 Unknown Rx Furosemide [Lasix TAB] 40 mg PO QDAY #30 09/18/19 Unknown Rx OLANzapine [ZyPREXA] 5 mg PO QHS #30 09/18/19 Unknown Rx Potassium Chloride [K-Dur] 10 meq PO QDAY #30 09/18/19 Unknown Rx Simvastatin 5 mg PO QHS #30 09/18/19 Unknown Rx clonazePAM 0.5 mg PO BID PRN #60 09/18/19 Unknown Rx hydrOXYzine HCL [Atarax] 25 mg PO TID #90 09/18/19 Unknown Rx propranoloL [Inderal] 10 mg PO BID #60 09/18/19 Unknown Rx risperiDONE [RisperDAL] 1 mg PO BID #60 tablet 09/18/19 Unknown Rx Ketorolac [Toradol] 10 mg PO Q6H PRN #30 tablet 10/19/19 Unknown Rx Valacyclovir HCl [Valacyclovir] 1,000 mg PO TID #21 tablet 10/19/19 Unknown Rx predniSONE [Deltasone] 60 mg PO QDAY #21 tab 10/19/19 Unknown Rx methOCARBAMOL [Robaxin TAB] 500 mg PO Q8HR PRN #20 tablet 11/27/19 Unknown Rx Ondansetron [Zofran Odt] 4 mg PO Q8HR PRN #14 tab.rapdis 04/27/20 Unknown Rx traMADoL [Ultram 50 MG tab] 50 mg PO Q4HR PRN #14 tablet 04/27/20 Unknown Rx Ciprofloxacin HCl [Ciprofloxacin 500 mg PO Q12HR #10 tab 06/23/20 Unknown Rx TAB] Allergies Allergy/AdvReac Type Severity Reaction Status Date / Time acetaminophen [From Lortab] Allergy Shortness Verified 02/12/19 14:14 of Breath aspirin Allergy Hives Verified 02/12/19 14:14 divalproex sodium Allergy Rash Verified 12/27/18 01:28 [From Depakote] hydrocodone [From Lortab] Allergy Hives Verified 02/12/19 14:14 latex Allergy Rash Verified 02/12/19 14:14 nut - unspecified Allergy Shortness Verified 02/12/19 14:14 of Breath oxycodone Allergy Hives Verified 02/12/19 14:14 Penicillins Allergy Rash Verified 12/26/18 18:35 propoxyphene Allergy Rash Verified 12/26/18 18:35 [From Darvocet-N] Sulfa (Sulfonamide Allergy Rash Verified 12/26/18 18:35 Antibiotics) dairy Allergy Diarrhea Uncoded 02/12/19 14:15 napsylate Allergy Hives Uncoded 02/12/19 14:14 ED Review of Systems ROS: Stated complaint: LT FLANK PAINS Other details as noted in HPI Comment: All other systems reviewed and negative Constitutional: denies: chills, fever Gastrointestinal: abdominal pain, nausea. denies: vomiting, diarrhea ED Past Medical Hx - Past Medical History Previous Medical History?: Yes Hx Hypertension: Yes Hx Congestive Heart Failure: Yes Hx Diabetes: Yes Hx Deep Vein Thrombosis: Yes Hx Renal Disease: No Hx Arthritis: No Hx Seizures: No Hx Psychiatric Treatment: Yes (Bipolar Depressed schizo affective, anxiety) Hx Asthma: Yes Hx COPD: No Additional medical history: Hypothyroidism, sleep apnea, DVT, Chronic Back pain, Gastritis, IBS. Hyperlipidemia, Ovarian cyst. Stubbs's palsey - Surgical History Hx Cholecystectomy: Yes Hx Appendectomy: No Additional Surgical History: Tonsilectomy, Uterine Ablation, Hernia repair, D&C. 2 molar pulled. stiched to nasal cavity. Right Rotator cuff repair. - Social History Smoking Status: Never Smoker Substance Use Type: None - Medications Home Medications: Home Medications Medication Instructions Recorded Confirmed Last Taken Type Fluticasone [Flonase] 1 spray NS QDAY 09/09/19 09/11/19 Unknown History Benztropine [Cogentin] 0.5 mg PO BID #60 09/18/19 Unknown Rx Doxepin [SINEquan] 25 mg PO QHS #30 capsule 09/18/19 Unknown Rx Escitalopram [Lexapro] 10 mg PO QDAY #30 tablet 09/18/19 Unknown Rx Furosemide [Lasix TAB] 40 mg PO QDAY #30 09/18/19 Unknown Rx OLANzapine [ZyPREXA] 5 mg PO QHS #30 09/18/19 Unknown Rx Potassium Chloride [K-Dur] 10 meq PO QDAY #30 09/18/19 Unknown Rx Simvastatin 5 mg PO QHS #30 09/18/19 Unknown Rx clonazePAM 0.5 mg PO BID PRN #60 09/18/19 Unknown Rx hydrOXYzine HCL [Atarax] 25 mg PO TID #90 09/18/19 Unknown Rx propranoloL [Inderal] 10 mg PO BID #60 09/18/19 Unknown Rx risperiDONE [RisperDAL] 1 mg PO BID #60 tablet 09/18/19 Unknown Rx Ketorolac [Toradol] 10 mg PO Q6H PRN #30 tablet 10/19/19 Unknown Rx Valacyclovir HCl [Valacyclovir] 1,000 mg PO TID #21 tablet 10/19/19 Unknown Rx predniSONE [Deltasone] 60 mg PO QDAY #21 tab 10/19/19 Unknown Rx methOCARBAMOL [Robaxin TAB] 500 mg PO Q8HR PRN #20 tablet 11/27/19 Unknown Rx Ondansetron [Zofran Odt] 4 mg PO Q8HR PRN #14 tab.rapdis 04/27/20 Unknown Rx traMADoL [Ultram 50 MG tab] 50 mg PO Q4HR PRN #14 tablet 04/27/20 Unknown Rx Ciprofloxacin HCl [Ciprofloxacin 500 mg PO Q12HR #10 tab 06/23/20 Unknown Rx TAB] ED Physical Exam - General Limitations: No Limitations General appearance: alert, in no apparent distress - Head Head exam: Present: atraumatic, normocephalic - Eye Eye exam: Present: normal appearance, EOMI - ENT ENT exam: Present: mucous membranes moist - Neck Neck exam: Present: normal inspection - Respiratory Respiratory exam: Present: normal lung sounds bilaterally. Absent: respiratory distress - Cardiovascular Cardiovascular Exam: Present: regular rate, normal rhythm - GI/Abdominal GI/Abdominal exam: Present: soft. Absent: distended, tenderness - Extremities Exam Extremities exam: Present: normal inspection - Neurological Exam Neurological exam: Present: alert, oriented X3 - Psychiatric Psychiatric exam: Present: normal affect, normal mood - Skin Skin exam: Present: warm, dry, intact, normal color ED Course Vital Signs 06/23/20 06/23/20 06/23/20 14:11 14:13 19:27 Temperature 99 F Pulse Rate 69 65 55 L Respiratory 18 18 16 Rate Blood Pressure 160/112 Blood Pressure 137/68 137/76 [Left] O2 Sat by Pulse 94 97 100 Oximetry ED Medical Decision Making - Lab Data Result diagrams: 06/23/20 14:47 06/23/20 14:47 - Medical Decision Making Labs are mostly normal, except for UA which does still show 2+ bacteria. Will place patient on antibiotics. Vital signs are normal. Will discharge at this time. Outpatient follow-up advised. Return precautions given. - Differential Diagnosis UTI, IBS, pancreatitis Critical care attestation.: If time is entered above; I have spent that time in minutes in the direct care of this critically ill patient, excluding procedure time. ED Disposition Clinical Impression: UTI (urinary tract infection) Disposition: - TO HOME OR SELFCARE Is pt being admited?: No Condition: Stable Instructions: Urinary Tract Infection, Adult, Abdominal Pain (ED) Prescriptions: Ciprofloxacin HCl [Ciprofloxacin TAB] 500 mg PO Q12HR #10 tab Referrals: PRIMARY CARE, [Referring] - 3-5 Days Time of Disposition: 19:21
[2020-06-23 19:28] VITALS: BP 137/76
== END 2020-06-23 19:28 | disposition home or self-care (01) ==
LOC: ED 13:36
DX: N39.0 Urinary tract infection, site not specified (principal); I11.0 Hypertensive heart disease with heart failure; I50.9 Heart failure, unspecified; E11.9 Type 2 diabetes mellitus without complications; J45.909 Unspecified asthma, uncomplicated; Z86.718 Personal history of other venous thrombosis and embolism; Z79.01 Long term (current) use of anticoagulants; E03.8 Other specified hypothyroidism; G51.0 Bell's palsy; Z90.49 Acquired absence of other specified parts of digestive tract; Z90.79 Acquired absence of other genital organ(s); Z79.899 Other long term (current) drug therapy; Z98.890 Other specified postprocedural states; Z88.6 Allergy status to analgesic agent; Z91.018 Allergy to other foods; Z88.8 Allergy status to other drugs, medicaments and biological substances
CPT/HCPCS: 36415; 80053; 81001; 81025; 83690; 85025; 99283

== ENCOUNTER 2020-07-19 10:46 | Inpatient (IN) | payer MEDICARE ==
[2020-07-19 11:39] LABS: Basophils # (Auto) 0.1 K/mm3 (0.0-0.1); Basophils % (Auto) 0.8 % (0.0-1.8); Eosinophils # (Auto) 0.2 K/mm3 (0.0-0.4); Eosinophils % (Auto) 2.8 % (0.0-4.3); Hemoglobin 12.8 gm/dl (10.1-14.3); Lymphocytes # (Auto) 1.7 K/mm3 (1.2-5.4); Lymphocytes % (Auto) 25.2 % (13.4-35.0); Mean Corpuscular HGB Conc 34 % (30-34); Mean Corpuscular Volume 82 fl (79-97); Monocytes # (Auto) 0.6 K/mm3 (0.0-0.8); Monocytes % (Auto) 8.3 % (0.0-7.3); Platelet Count 304 K/mm3 (140-440); Red Blood Count 4.65 M/mm3 (3.65-5.03); Red Cell Distribution Width 15.3 % (13.2-15.2)
[2020-07-19 12:00] LABS: Alanine Aminotransferase 18 units/L (7-56); Albumin 3.9 g/dL (3.9-5); Blood Urea Nitrogen 10 mg/dL (7-17); Calcium 8.8 mg/dL (8.4-10.2); Hemolysis Index 5
[2020-07-19 12:13] LABS: BUN/Creatinine Ratio 14
--- NOTE | 2020-07-19 12:21 | XRay Report ---
CHEST 2 VIEWS INDICATION / CLINICAL INFORMATION: sob,cough and rales. COMPARISON: 10/04/2019 FINDINGS: SUPPORT DEVICES: None. HEART / MEDIASTINUM: No significant abnormality. LUNGS / PLEURA: Streaky bibasilar parenchymal disease, new since prior study No pneumothorax. ADDITIONAL FINDINGS: No significant additional findings. IMPRESSION: 1. Mild streaky bibasilar parenchymal disease could represent early pneumonia Signer Name: Britton Yu MD Signed: 07/19/2020 12:16 PM Workstation Name: [id number]
--- NOTE | 2020-07-19 12:51 | Emergency Department Report ---
- General Chief Complaint: Upper Respiratory Infection Stated Complaint: HEADACHE/NAUSEA/CHEST PAIN PUI?: Yes Source: patient Mode of arrival: Ambulatory Limitations: No Limitations - History of Present Illness Initial Comments: 50-year-old female presents to the emergency room for 1 week history of intermittent headaches chest congestion nasal congestion nausea shortness of breath weakness fatigue and exhausted. Patient states that her chest vidal when she coughs. Patient reports that she contacted her primary care provider and was told to come to the ER for a COVID-19 test. Patient's primary care doctor is Dr. Jose Luis metcalf. Patient states that she had a COVID-19 negative test several months ago. Patient has a past medical history of asthma, CHF, DVT, laith betes, hypertension, bipolar depression and schizophrenia with anxiety. She also has a history of hypothyroidism sleep apnea gastritis and IBS. MD Complaint: cough, sore throat, nasal congestion Onset/Timin -: week(s) Severity scale (0 -10): 7 Quality: burning, aching Consistency: constant Improves With: nothing Worsens With: activity, deep breaths Associated Symptoms: myalgias, headache, rhinorrhea, cough, chest pain, shortness of breath, nausea. denies: fever Treatments Prior to Arrival: none - Related Data Home Medications Medication Instructions Recorded Confirmed Last Taken Fluticasone [Flonase] 1 spray NS QDAY 09/09/19 09/11/19 Unknown Previous Rx's Medication Instructions Recorded Last Taken Type Benztropine [Cogentin] 0.5 mg PO BID #60 09/18/19 Unknown Rx Doxepin [SINEquan] 25 mg PO QHS #30 capsule 09/18/19 Unknown Rx Escitalopram [Lexapro] 10 mg PO QDAY #30 tablet 09/18/19 Unknown Rx Furosemide [Lasix TAB] 40 mg PO QDAY #30 09/18/19 Unknown Rx OLANzapine [ZyPREXA] 5 mg PO QHS #30 09/18/19 Unknown Rx Potassium Chloride [K-Dur] 10 meq PO QDAY #30 09/18/19 Unknown Rx Simvastatin 5 mg PO QHS #30 09/18/19 Unknown Rx clonazePAM 0.5 mg PO BID PRN #60 09/18/19 Unknown Rx hydrOXYzine HCL [Atarax] 25 mg PO TID #90 09/18/19 Unknown Rx propranoloL [Inderal] 10 mg PO BID #60 09/18/19 Unknown Rx risperiDONE [RisperDAL] 1 mg PO BID #60 tablet 09/18/19 Unknown Rx Ketorolac [Toradol] 10 mg PO Q6H PRN #30 tablet 10/19/19 Unknown Rx Valacyclovir HCl [Valacyclovir] 1,000 mg PO TID #21 tablet 10/19/19 Unknown Rx predniSONE [Deltasone] 60 mg PO QDAY #21 tab 10/19/19 Unknown Rx methOCARBAMOL [Robaxin TAB] 500 mg PO Q8HR PRN #20 tablet 11/27/19 Unknown Rx Ondansetron [Zofran Odt] 4 mg PO Q8HR PRN #14 tab.rapdis 04/27/20 Unknown Rx traMADoL [Ultram 50 MG tab] 50 mg PO Q4HR PRN #14 tablet 04/27/20 Unknown Rx Ciprofloxacin HCl [Ciprofloxacin 500 mg PO Q12HR #10 tab 06/23/20 Unknown Rx TAB] Allergies Allergy/AdvReac Type Severity Reaction Status Date / Time acetaminophen [From Lortab] Allergy Shortness Verified 02/12/19 14:14 of Breath aspirin Allergy Hives Verified 02/12/19 14:14 divalproex sodium Allergy Rash Verified 12/27/18 01:28 [From Depakote] hydrocodone [From Lortab] Allergy Hives Verified 02/12/19 14:14 latex Allergy Rash Verified 02/12/19 14:14 nut - unspecified Allergy Shortness Verified 02/12/19 14:14 of Breath oxycodone Allergy Hives Verified 02/12/19 14:14 Penicillins Allergy Rash Verified 12/26/18 18:35 propoxyphene Allergy Rash Verified 12/26/18 18:35 [From Darvocet-N] Sulfa (Sulfonamide Allergy Rash Verified 12/26/18 18:35 Antibiotics) dairy Allergy Diarrhea Uncoded 02/12/19 14:15 napsylate Allergy Hives Uncoded 02/12/19 14:14 ED Review of Systems ROS: Stated complaint: HEADACHE/NAUSEA/CHEST PAIN Other details as noted in HPI Comment: All other systems reviewed and negative ED Past Medical Hx - Past Medical History Previous Medical History?: Yes Hx Hypertension: Yes Hx Congestive Heart Failure: Yes Hx Diabetes: Yes Hx Deep Vein Thrombosis: Yes Hx Renal Disease: No Hx Arthritis: No Hx Seizures: No Hx Psychiatric Treatment: Yes (Bipolar Depressed schizo affective, anxiety) Hx Asthma: Yes Hx COPD: No Additional medical history: Hypothyroidism, sleep apnea, DVT, Chronic Back pain, Gastritis, IBS. Hyperlipidemia, Ovarian cyst. Stubbs's palsey - Surgical History Past Surgical History?: Yes Hx Cholecystectomy: Yes Hx Appendectomy: No Additional Surgical History: Tonsilectomy, Uterine Ablation, Hernia repair, D&C. 2 molar pulled. stiched to nasal cavity. Right Rotator cuff repair. - Social History Smoking Status: Never Smoker Substance Use Type: None - Medications Home Medications: Home Medications Medication Instructions Recorded Confirmed Last Taken Type Fluticasone [Flonase] 1 spray NS QDAY 09/09/19 09/11/19 Unknown History Benztropine [Cogentin] 0.5 mg PO BID #60 09/18/19 Unknown Rx Doxepin [SINEquan] 25 mg PO QHS #30 capsule 09/18/19 Unknown Rx Escitalopram [Lexapro] 10 mg PO QDAY #30 tablet 09/18/19 Unknown Rx Furosemide [Lasix TAB] 40 mg PO QDAY #30 09/18/19 Unknown Rx OLANzapine [ZyPREXA] 5 mg PO QHS #30 09/18/19 Unknown Rx Potassium Chloride [K-Dur] 10 meq PO QDAY #30 09/18/19 Unknown Rx Simvastatin 5 mg PO QHS #30 09/18/19 Unknown Rx clonazePAM 0.5 mg PO BID PRN #60 09/18/19 Unknown Rx hydrOXYzine HCL [Atarax] 25 mg PO TID #90 09/18/19 Unknown Rx propranoloL [Inderal] 10 mg PO BID #60 09/18/19 Unknown Rx risperiDONE [RisperDAL] 1 mg PO BID #60 tablet 09/18/19 Unknown Rx Ketorolac [Toradol] 10 mg PO Q6H PRN #30 tablet 10/19/19 Unknown Rx Valacyclovir HCl [Valacyclovir] 1,000 mg PO TID #21 tablet 10/19/19 Unknown Rx predniSONE [Deltasone] 60 mg PO QDAY #21 tab 10/19/19 Unknown Rx methOCARBAMOL [Robaxin TAB] 500 mg PO Q8HR PRN #20 tablet 11/27/19 Unknown Rx Ondansetron [Zofran Odt] 4 mg PO Q8HR PRN #14 tab.rapdis 04/27/20 Unknown Rx traMADoL [Ultram 50 MG tab] 50 mg PO Q4HR PRN #14 tablet 04/27/20 Unknown Rx Ciprofloxacin HCl [Ciprofloxacin 500 mg PO Q12HR #10 tab 06/23/20 Unknown Rx TAB] ED Physical Exam - General Limitations: No Limitations General appearance: alert, in no apparent distress - Head Head exam: Present: atraumatic, normocephalic - Eye Eye exam: Present: normal appearance - ENT ENT exam: Present: mucous membranes moist - Neck Neck exam: Present: normal inspection, full ROM - Respiratory Respiratory exam: Present: decreased breath sounds - Cardiovascular Cardiovascular Exam: Present: regular rate, normal rhythm. Absent: systolic murmur, diastolic murmur, rubs, gallop - GI/Abdominal GI/Abdominal exam: Present: soft, normal bowel sounds. Absent: distended, tenderness - Extremities Exam Extremities exam: Present: normal inspection, full ROM. Absent: pedal edema - Back Exam Back exam: Present: normal inspection - Neurological Exam Neurological exam: Present: alert, oriented X3, normal gait - Psychiatric Psychiatric exam: Present: normal affect, normal mood - Skin Skin exam: Present: warm, dry, intact, normal color. Absent: rash ED Course Vital Signs 07/19/20 07/19/20 07/19/20 11:00 17:10 17:30 Temperature 98.6 F Pulse Rate 62 82 54 L Respiratory 20 21 15 Rate Blood Pressure 123/67 O2 Sat by Pulse 97 99 Oximetry 07/19/20 07/19/20 07/19/20 18:00 18:30 19:00 Temperature Pulse Rate 55 L 55 L 56 L Respiratory 13 17 18 Rate Blood Pressure O2 Sat by Pulse 99 99 99 Oximetry ED Medical Decision Making - Lab Data Result diagrams: 07/19/20 11:26 07/19/20 15:14 - Radiology Data Radiology results: report reviewed [facility] [address] [place] [address] XRay Report Signed Patient: ANETA LIVE MR#: [id number] : 1970 Acct:[id number] Age/Sex: 50 / F ADM Date: 07/19/20 Loc: ED Attending Dr: Ordering Physician: AUGUSTINE BERMEO Date of Service: 07/19/20 Procedure(s): XR chest routine 2V Accession Number(s): [id number] cc: AUGUSTINE BERMEO Fluoro Time In Minutes: CHEST 2 VIEWS INDICATION / CLINICAL INFORMATION: sob,cough and rales. COMPARISON: 10/04/2019 FINDINGS: SUPPORT DEVICES: None. HEART / MEDIASTINUM: No significant abnormality. LUNGS / PLEURA: Streaky bibasilar parenchymal disease, new since prior study No pneumothorax. ADDITIONAL FINDINGS: No significant additional findings. IMPRESSION: 1. Mild streaky bibasilar parenchymal disease could represent early pneumonia Signer Name: Britton Yu MD Signed: 07/19/2020 12:16 PM Workstation Name: [id number] Transcribed By: TL Dictated By: Britton Yu MD Electronically Authenticated By: Britton Yu MD Signed Date/Time: 07/19/20 121 DD/ 14 TD/TT: - Medical Decision Making 50-year-old female presents to the emergency room for 1 week history of intermittent headaches chest congestion nasal congestion nausea shortness of breath weakness fatigue and exhausted. Patient states that her chest vidal when she coughs. Patient reports that she contacted her primary care provider and was told to come to the ER for a COVID-19 test. Patient's primary care doctor is Dr. Jose Luis metcalf. Patient states that she had a COVID-19 negative test several months ago. Patient has a past medical history of asthma, CHF, DVT, diabetes, hypertension, bipolar depression and schizophrenia with anxiety. She also has a history of hypothyroidism sleep apnea gastritis and IBS. Chest x-ray shows concerning for early pneumonia. I have ordered ambulatory pulse ox. Labs are stable no concerns for any abnormality or actionable results. Critical care attestation.: If time is entered above; I have spent that time in minutes in the direct care of this critically ill patient, excluding procedure time. ED Disposition Clinical Impression: Suspected 2019 novel coronavirus infection, Pneumonia, CHF (congestive heart failure), DVT prophylaxis Disposition: OP ADMIT IP TO THIS HOSP Is pt being admited?: Yes Does the pt Need Aspirin: No Condition: Stable Instructions: Bacterial Pneumonia (ED) Referrals: SAMMY ROBERTS [Primary Care Provider] - 3-5 Days
[2020-07-19] MEDS ORDERED: SODIUM CHLORIDE 0.9% 1000 ML 1,000 ML IV ONE (15:09)
[2020-07-19] MEDS ORDERED: AZITHROMYCIN 500 MG in SODIUM CHLORIDE 0.9% 250ML 250 ML IV ONE (15:20)
[2020-07-19 15:47] LABS: C-Reactive Protein 0.4 mg/dL (0.00-1.30)
[2020-07-19] MEDS ORDERED: SODIUM CHLORIDE 0.9% 1000 ML 1,000 ML ONE (16:32)
--- NOTE | 2020-07-19 23:00 | History and Physical Report ---
History of Present Illness Date of examination: 07/19/20 Date of admission: 07/19/20 16:14 Chief complaint: Chest congestion and shortness of breath for couple of days History of present illness: 50-year-old female comes in for headaches and chest congestion and nasal congestion. Also shortness of breath and fatigue and exertion. Patient was sent by her PCP to rule out Covid pneumonia. Her primary care physician is Dr. Jose Luis metcalf. Patient has a history of diabetes CHF hypertension bipolar depression and schizophrenia. Patient also has history of hypothyroidism and sleep apnea and irritable bowel syndrome. No fever. No anosmia or loss of taste. Shortness of breath present. No exposure to coronavirus. - Past Medical History Previous Medical History?: Yes --Hypertension: Yes --Congestive Heart Failure: Yes --Diabetes: Yes --Deep Vein Thrombosis: Yes --Psychiatric Treatment: Yes (Bipolar Depressed schizo affective, anxiety) --Asthma: Yes Additional medical history: Hypothyroidism, sleep apnea, DVT, Chronic Back pain, Gastritis, IBS. Hyperlipidemia, Ovarian cyst. Stubbs's palsey - Surgical History --Cholecystectomy: Yes Additional Surgical History: Tonsilectomy, Uterine Ablation, Hernia repair, D&C. 2 molar pulled. stiched to nasal cavity. Right Rotator cuff repair. -- Social History Smoking Status: Never Smoker Substance Use Type: None Family history Htn - Medications Home Medications: Home Medications Medication Instructions Recorded Confirmed Last Taken Type Fluticasone [Flonase] 1 spray NS QDAY 09/09/19 09/11/19 Unknown History Benztropine [Cogentin] 0.5 mg PO BID #60 09/18/19 Unknown Rx Doxepin [SINEquan] 25 mg PO QHS #30 capsule 09/18/19 Unknown Rx Escitalopram [Lexapro] 10 mg PO QDAY #30 tablet 09/18/19 Unknown Rx Furosemide [Lasix TAB] 40 mg PO QDAY #30 09/18/19 Unknown Rx OLANzapine [ZyPREXA] 5 mg PO QHS #30 09/18/19 Unknown Rx Potassium Chloride [K-Dur] 10 meq PO QDAY #30 09/18/19 Unknown Rx Simvastatin 5 mg PO QHS #30 09/18/19 Unknown Rx clonazePAM 0.5 mg PO BID PRN #60 09/18/19 Unknown Rx hydrOXYzine HCL [Atarax] 25 mg PO TID #90 09/18/19 Unknown Rx propranoloL [Inderal] 10 mg PO BID #60 09/18/19 Unknown Rx risperiDONE [RisperDAL] 1 mg PO BID #60 tablet 09/18/19 Unknown Rx Ketorolac [Toradol] 10 mg PO Q6H PRN #30 tablet 10/19/19 Unknown Rx Valacyclovir HCl [Valacyclovir] 1,000 mg PO TID #21 tablet 10/19/19 Unknown Rx predniSONE [Deltasone] 60 mg PO QDAY #21 tab 10/19/19 Unknown Rx methOCARBAMOL [Robaxin TAB] 500 mg PO Q8HR PRN #20 tablet 11/27/19 Unknown Rx Ondansetron [Zofran Odt] 4 mg PO Q8HR PRN #14 tab.rapdis 04/27/20 Unknown Rx traMADoL [Ultram 50 MG tab] 50 mg PO Q4HR PRN #14 tablet 04/27/20 Unknown Rx Ciprofloxacin HCl [Ciprofloxacin 500 mg PO Q12HR #10 tab 06/23/20 Unknown Rx TAB] Review of Systems ROS: Constitutional headache, chest congestion HEENT no sore throat no post nasal drip no diplopia Neck no neck stiffness no lymph gland enlargement Chest and lungs shortness of breath present CVS no chest pain no diaphoresis no palpitations GI no nausea no vomiting no diarrhea Genitourinary system no dysuria no flank pain Musculoskeletal system no muscle pains no joint pains [employer] no syncope no seizures Skin no rash no itching Psychiatric no depression no homicidal or suicidal tendencies Hematologic no lymphedema or bruising Endocrine no polydipsia no polyuria no cold intolerance no heat intolerance Medications and Allergies Allergies Allergy/AdvReac Type Severity Reaction Status Date / Time acetaminophen [From Lortab] Allergy Shortness Verified 02/12/19 14:14 of Breath aspirin Allergy Hives Verified 02/12/19 14:14 divalproex sodium Allergy Rash Verified 12/27/18 01:28 [From Depakote] hydrocodone [From Lortab] Allergy Hives Verified 02/12/19 14:14 latex Allergy Rash Verified 02/12/19 14:14 nut - unspecified Allergy Shortness Verified 02/12/19 14:14 of Breath oxycodone Allergy Hives Verified 02/12/19 14:14 Penicillins Allergy Rash Verified 12/26/18 18:35 propoxyphene Allergy Rash Verified 12/26/18 18:35 [From Darvocet-N] Sulfa (Sulfonamide Allergy Rash Verified 12/26/18 18:35 Antibiotics) dairy Allergy Diarrhea Uncoded 02/12/19 14:15 napsylate Allergy Hives Uncoded 02/12/19 14:14 Home Medications Medication Instructions Recorded Confirmed Last Taken Type Fluticasone [Flonase] 1 spray NS QDAY 09/09/19 09/11/19 Unknown History Benztropine [Cogentin] 0.5 mg PO BID #60 09/18/19 Unknown Rx Doxepin [SINEquan] 25 mg PO QHS #30 capsule 09/18/19 Unknown Rx Escitalopram [Lexapro] 10 mg PO QDAY #30 tablet 09/18/19 Unknown Rx Furosemide [Lasix TAB] 40 mg PO QDAY #30 09/18/19 Unknown Rx OLANzapine [ZyPREXA] 5 mg PO QHS #30 09/18/19 Unknown Rx Potassium Chloride [K-Dur] 10 meq PO QDAY #30 09/18/19 Unknown Rx Simvastatin 5 mg PO QHS #30 09/18/19 Unknown Rx clonazePAM 0.5 mg PO BID PRN #60 09/18/19 Unknown Rx hydrOXYzine HCL [Atarax] 25 mg PO TID #90 09/18/19 Unknown Rx propranoloL [Inderal] 10 mg PO BID #60 09/18/19 Unknown Rx risperiDONE [RisperDAL] 1 mg PO BID #60 tablet 09/18/19 Unknown Rx Ketorolac [Toradol] 10 mg PO Q6H PRN #30 tablet 10/19/19 Unknown Rx Valacyclovir HCl [Valacyclovir] 1,000 mg PO TID #21 tablet 10/19/19 Unknown Rx predniSONE [Deltasone] 60 mg PO QDAY #21 tab 10/19/19 Unknown Rx methOCARBAMOL [Robaxin TAB] 500 mg PO Q8HR PRN #20 tablet 11/27/19 Unknown Rx Ondansetron [Zofran Odt] 4 mg PO Q8HR PRN #14 tab.rapdis 04/27/20 Unknown Rx traMADoL [Ultram 50 MG tab] 50 mg PO Q4HR PRN #14 tablet 04/27/20 Unknown Rx Ciprofloxacin HCl [Ciprofloxacin 500 mg PO Q12HR #10 tab 11/09/20 Unknown Rx TAB] Exam - Constitutional Vitals: Temp Pulse Resp BP Pulse Ox 98.6 F 66 16 130/62 96 07/19/20 21:58 07/19/20 21:58 07/19/20 21:58 07/19/20 21:58 07/19/20 21:58 General appearance: Present: mild distress, well-nourished - EENT Eyes: Present: PERRL ENT: hearing intact, clear oral mucosa - Neck Neck: Present: supple, normal ROM - Respiratory Respiratory effort: normal Respiratory: bilateral: CTA, rhonchi (Scattered) - Cardiovascular Heart rate: 78 Rhythm: regular Heart Sounds: Present: S1 & S2. Absent: rub, click - Extremities Extremities: no ischemia, pulses intact, pulses symmetrical, No edema Peripheral Pulses: within normal limits - Abdominal General gastrointestinal: Present: soft, non-tender, non-distended, normal bowel sounds Female genitourinary: Present: normal - Rectal Rectal Exam: deferred - Integumentary Integumentary: Present: clear, warm, dry - Musculoskeletal Musculoskeletal: gait normal, strength equal bilaterally - Psychiatric Psychiatric: appropriate mood/affect, intact judgment & insight - Neurologic Neurologic: CNII-XII intact, moves all extremities - Allied Health Allied health notes reviewed: nursing HEART Score - HEART Score Troponin: Troponin T < 0.010 ng/mL (0.00-0.029) 07/19/20 14:35 Results - Labs CBC & Chem 7: 07/19/20 11:26 07/19/20 15:14 Labs: Laboratory Last Values WBC 6.7 K/mm3 (4.5-11.0) 07/19/20 11:26 RBC 4.65 M/mm3 (3.65-5.03) 07/19/20 11:26 Hgb 12.8 gm/dl (10.1-14.3) 07/19/20 11:26 Hct 38.0 % (30.3-42.9) 07/19/20 11:26 MCV 82 fl (79-97) 07/19/20 11:26 MCH 28 pg (28-32) 07/19/20 11:26 MCHC 34 % (30-34) 07/19/20 11:26 RDW 15.3 % (13.2-15.2) H 07/19/20 11:26 Plt Count 304 K/mm3 (140-440) 07/19/20 11:26 Lymph % (Auto) 25.2 % (13.4-35.0) 07/19/20 11:26 Giles % (Auto) 8.3 % (0.0-7.3) H 07/19/20 11:26 Eos % (Auto) 2.8 % (0.0-4.3) 07/19/20 11:26 Baso % (Auto) 0.8 % (0.0-1.8) 07/19/20 11:26 Lymph # (Auto) 1.7 K/mm3 (1.2-5.4) 07/19/20 11:26 Giles # (Auto) 0.6 K/mm3 (0.0-0.8) 07/19/20 11:26 Eos # (Auto) 0.2 K/mm3 (0.0-0.4) 07/19/20 11:26 Baso # (Auto) 0.1 K/mm3 (0.0-0.1) 07/19/20 11:26 Seg Neutrophils % 62.9 % (40.0-70.0) 07/19/20 11:26 Seg Neutrophils # 4.2 K/mm3 (1.8-7.7) 07/19/20 11:26 D-Dimer 135.00 ng/mlDDU (0-234) 07/19/20 15:14 Sodium 140 mmol/L (137-145) 07/19/20 11:26 Potassium 4.6 mmol/L (3.6-5.0) 07/19/20 11:26 Chloride 104.8 mmol/L (98-107) 07/19/20 11:26 Carbon Dioxide 30 mmol/L (22-30) 07/19/20 11:26 Anion Gap 10 mmol/L 07/19/20 11:26 BUN 10 mg/dL (7-17) 07/19/20 11:26 Creatinine 0.7 mg/dL (0.6-1.2) 07/19/20 11:26 Estimated GFR > 60 ml/min 07/19/20 11:26 BUN/Creatinine Ratio 14 % 07/19/20 11:26 Glucose 83 mg/dL (65-100) 07/19/20 15:14 POC Glucose 83 mg/dL (70-105) 07/19/20 21:54 Calcium 8.8 mg/dL (8.4-10.2) 07/19/20 11:26 Ferritin 78.6 ng/mL (10.0-200.0) 07/19/20 15:14 Total Bilirubin 0.20 mg/dL (0.1-1.2) 07/19/20 11:26 AST 18 units/L (5-40) 07/19/20 11:26 ALT 18 units/L (7-56) 07/19/20 11:26 Alkaline Phosphatase 98 units/L (35-129) 07/19/20 11:26 Lactate Dehydrogenase 166 units/L (91-180) 07/19/20 15:14 Troponin T < 0.010 ng/mL (0.00-0.029) 07/19/20 14:35 C-Reactive Protein 0.40 mg/dL (0.00-1.30) 07/19/20 15:14 Total Protein 7.1 g/dL (6.3-8.2) 07/19/20 11:26 Albumin 3.9 g/dL (3.9-5) 07/19/20 11:26 Albumin/Globulin Ratio 1.2 % 07/19/20 11:26 - Imaging and Cardiology Chest x-ray: report reviewed Imaging and Cardiology: CXR LUNGS / PLEURA: Streaky bibasilar parenchymal disease, new since prior study No pneumothorax. ADDITIONAL FINDINGS: No significant additional findings. IMPRESSION: 1. Mild streaky bibasilar parenchymal disease could represent early pneumonia Assessment and Plan Advance Directives: Yes (Full code) VTE prophylaxis?: Chemical Plan of care discussed with patient/family: Yes - Patient Problems (1) Bilateral pneumonia Current Visit: Yes Status: Acute Plan to address problem: Patient started on Rocephin and Zithromax Coronavirus PCR requested (2) Suspected 2019 novel coronavirus infection Current Visit: Yes Status: Acute Plan to address problem: Coronavirus PCR to be ruled out (3) CHF (congestive heart failure) Current Visit: Yes Status: Chronic Qualifiers: Heart failure type: combined systolic and diastolic Plan to address problem: Continue Lasix (4) Depression Current Visit: Yes Status: Chronic Qualifiers: Depression Type: unspecified Qualified Code(s): F32.9 - Major depressive di sorder, single episode, unspecified Plan to address problem: Continue antidepressants (5) Bipolar 1 disorder, depressed Current Visit: Yes Status: Chronic Plan to address problem: Continue Zyprexa (6) NASRA (generalized anxiety disorder) Current Visit: No Status: Chronic Plan to address problem: Continue clonazepam (7) DVT prophylaxis Current Visit: Yes Status: Acute Plan to address problem: Patient on Lovenox and GI prophylaxis
[2020-07-19] MEDS ORDERED: traMADol 50 MG TAB PO PRN (23:08)
[2020-07-19] MEDS ORDERED: clonazePAM 0.5 MG TAB PO PRN (23:08)
[2020-07-19] MEDS ORDERED: HYDROmorphone 1 MG/1 ML INJ IV PRN (23:10)
[2020-07-19] MEDS ORDERED: METOCLOPRAMIDE 10 MG/2 ML INJ IV PRN (23:10)
[2020-07-19] MEDS ORDERED: ONDANSETRON 4 MG/2 ML INJ IV PRN (23:10)
[2020-07-19] MEDS ORDERED: oxyCODONE /ACETAMINOPHEN 5-325MG TAB PO PRN (23:10)
[2020-07-19] MEDS ORDERED: ENOXAPARIN 40 MG/0.4 ML INJ SUB-Q SCH (23:30)
[2020-07-20 00:35] LABS: C-Reactive Protein 0.3 mg/dL (0.00-1.30)
[2020-07-20] MEDS: BENZTROPINE 0.5 MG TAB PO SCH ×3 (00:55→21:37)
[2020-07-20] MEDS: dexAMETHasone 4 MG/ML VIAL IV SCH ×2 (00:55→21:37)
[2020-07-20 06:54] LABS: Basophils % (Auto) 0.4 % (0.0-1.8); Eosinophils % (Auto) 0.3 % (0.0-4.3); Hematocrit 39.3 % (30.3-42.9); Hemoglobin 12.9 gm/dl (10.1-14.3); Lymphocytes # (Auto) 1.1 K/mm3 (1.2-5.4); Lymphocytes % (Auto) 16.7 % (13.4-35.0); Mean Corpuscular HGB Conc 33 % (30-34); Mean Corpuscular Volume 83 fl (79-97); Monocytes # (Auto) 0.1 K/mm3 (0.0-0.8); Monocytes % (Auto) 1.2 % (0.0-7.3); Platelet Count 314 K/mm3 (140-440); Red Blood Count 4.75 M/mm3 (3.65-5.03); Red Cell Distribution Width 15.8 % (13.2-15.2)
[2020-07-20 07:13] LABS: Alanine Aminotransferase 22 units/L (7-56); Albumin 3.9 g/dL (3.9-5); BUN/Creatinine Ratio 15; Blood Urea Nitrogen 12 mg/dL (7-17); Calcium 9.4 mg/dL (8.4-10.2); Hemolysis Index 113
[2020-07-20] MEDS ORDERED: FUROSEMIDE 40 MG TAB PO SCH (10:00)
[2020-07-20] MEDS ORDERED: AZITHROMYCIN 500 MG in SODIUM CHLORIDE 0.9% 250ML 250 ML IV SCH (10:00)
[2020-07-20] MEDS: risperiDONE 1 MG TAB PO SCH ×3 (10:32→21:38)
[2020-07-20] MEDS: FAMOTIDINE 20 MG TAB PO SCH ×2 (10:32→21:37)
[2020-07-20] MEDS: cefTRIAXone/NS 2 GM/100 ML 2 GM/100 ML BAG IV SCH (10:32)
[2020-07-20] MEDS: POTASSIUM CHLORIDE ER 10 MEQ TAB PO SCH (10:32)
[2020-07-20] MEDS: PROPRANOLOL 10 MG TAB PO SCH ×2 (10:32→21:45)
[2020-07-20] MEDS: hydrOXYzine HCL 25 MG TAB PO SCH ×3 (10:33→21:37)
[2020-07-20] MEDS: FLUTICASONE PROPIONATE NASAL SPRAY 16 GM NS SCH (10:33)
[2020-07-20] MEDS: ESCITALOPRAM 10 MG TAB PO SCH (10:45)
--- NOTE | 2020-07-20 14:58 | Progress Note ---
Assessment and Plan Assessment and plan: 50-year-old female patient with significant history of type 2 diabetes mellitus congestive heart failure , hypertension , morbid obesity , obstructive sleep apnea , bipolar , schizophrenia , depression was admitted through emergency room with upper respiratory symptoms and chest congestion, worsening shortness of breath, patient seen PMD Dr. Jose Luis metcalf and sent her for Covid rule out --Positive COVID-19 test [07/20/2020] Current Visit: Yes Status: Acute Plan to address problem: Coronavirus PCR test positive Contact and droplet isolation ID consult, IV steroids Inflammatory markers normal range Supportive care -- Bilateral pneumonia Current Visit: Yes Status: Acute Plan to address problem: Patient started on Rocephin and Zithromax Continue empiric antibiotics Procalcitonin level low Follow ID may DC antibiotics Oxygen evaluation --H/o atrial fibrillation ; Current Visit: Yes Status: Acute Plan to address problem: Continue current management Anticoagulation with Xarelto --History of depression Current Visit: Yes Status: Chronic . Plan to address problem: Continue home antidepressants Patient does not have suicidal thoughts or ideation -- Bipolar 1 disorder, depressed Current Visit: Yes Status: Chronic Plan to address problem: Continue Zyprexa --NASRA (generalized anxiety disorder) Current Visit: No Status: Chronic Plan to address problem: Anxiolytes --Morbid obesity; BMI 45.0 Current Visit: Yes Status: Acute . Plan to address problem: Patient needs dietary modification exercise as tolerated and weight reduction when medically stable Need outpatient sleep study to rule out obstructive sleep apnea. --DVT prophylaxis Current Visit: Yes Status: Acute Plan to address problem: Patient on Xarelto We will closely monitor the patient and adjust management as needed Plan of care reviewed with the patient and her nurse History Interval history: I have seen and examined the patient at the bedside this afternoon, Patient's chart and medications reviewed Strict isolation and PPE protocols followed Patient was admitted with chest congestion and PUI Patient feels slightly better Complains of generalized weakness and shortness of breath Vital signs reviewed Hospitalist Physical - Constitutional Vitals: Temp Pulse Resp BP Pulse Ox 99.0 F 77 18 128/78 93 07/20/20 11:25 07/20/20 11:25 07/20/20 11:25 07/20/20 11:25 07/20/20 11:25 General appearance: Present: mild distress, well-nourished - EENT Eyes: Present: PERRL, EOM intact - Neck Neck: Present: supple, normal ROM HEART Score - HEART Score Troponin: Troponin T < 0.010 ng/mL (0.00-0.029) 07/19/20 14:35 Results - Labs CBC & Chem 7: 07/20/20 06:04 07/20/20 06:04 Labs: Laboratory Last Values WBC 6.8 K/mm3 (4.5-11.0) 07/20/20 06:04 RBC 4.75 M/mm3 (3.65-5.03) 07/20/20 06:04 Hgb 12.9 gm/dl (10.1-14.3) 07/20/20 06:04 Hct 39.3 % (30.3-42.9) 07/20/20 06:04 MCV 83 fl (79-97) 07/20/20 06:04 MCH 27 pg (28-32) L 07/20/20 06:04 MCHC 33 % (30-34) 07/20/20 06:04 RDW 15.8 % (13.2-15.2) H 07/20/20 06:04 Plt Count 314 K/mm3 (140-440) 07/20/20 06:04 Lymph % (Auto) 16.7 % (13.4-35.0) 07/20/20 06:04 [place] % (Auto) 1.2 % (0.0-7.3) 07/20/20 06:04 Eos % (Auto) 0.3 % (0.0-4.3) 07/20/20 06:04 Baso % (Auto) 0.4 % (0.0-1.8) 07/20/20 06:04 Lymph # (Auto) 1.1 K/mm3 (1.2-5.4) L 07/20/20 06:04 [place] # (Auto) 0.1 K/mm3 (0.0-0.8) 07/20/20 06:04 Eos # (Auto) 0.0 K/mm3 (0.0-0.4) 07/20/20 06:04 Baso # (Auto) 0.0 K/mm3 (0.0-0.1) 07/20/20 06:04 Seg Neutrophils % 81.4 % (40.0-70.0) H 07/20/20 06:04 Seg Neutrophils # 5.5 K/mm3 (1.8-7.7) 07/20/20 06:04 D-Dimer 166.92 ng/mlDDU (0-234) 07/19/20 23:51 Sodium 141 mmol/L (137-145) 07/20/20 06:04 Potassium 4.7 mmol/L (3.6-5.0) 07/20/20 06:04 Chloride 106.2 mmol/L (98-107) 07/20/20 06:04 Carbon Dioxide 24 mmol/L (22-30) 07/20/20 06:04 Anion Gap 16 mmol/L 07/20/20 06:04 BUN 12 mg/dL (7-17) 07/20/20 06:04 Creatinine 0.8 mg/dL (0.6-1.2) 07/20/20 06:04 Estimated GFR > 60 ml/min 07/20/20 06:04 BUN/Creatinine Ratio 15 % 07/20/20 06:04 Glucose 149 mg/dL (65-100) H 07/20/20 06:04 POC Glucose 143 mg/dL (70-105) H 07/20/20 11:13 Hemoglobin A1c 5.6 % (4-6) 07/19/20 23:51 Calcium 9.4 mg/dL (8.4-10.2) 07/20/20 06:04 Ferritin 76.4 ng/mL (10.0-200.0) 07/19/20 23:51 Total Bilirubin < 0.20 mg/dL (0.1-1.2) 07/20/20 06:04 AST 28 units/L (5-40) 07/20/20 06:04 ALT 22 units/L (7-56) 07/20/20 06:04 Alkaline Phosphatase 100 units/L (35-129) 07/20/20 06:04 Lactate Dehydrogenase 144 units/L (91-180) 07/19/20 23:51 Troponin T < 0.010 ng/mL (0.00-0.029) 07/19/20 14:35 C-Reactive Protein 0.30 mg/dL (0.00-1.30) 07/19/20 23:51 Total Protein 7.4 g/dL (6.3-8.2) 07/20/20 06:04 Albumin 3.9 g/dL (3.9-5) 07/20/20 06:04 Albumin/Globulin Ratio 1.1 % 07/20/20 06:04 Procalcitonin < 0.05 ng/mL (<0.15) 07/19/20 15:14 Coronavirus (PCR) Positive (Negative) A 07/20/20 10:09 David/IV: Voiding Method Toilet IV Catheter Type [Right INT / Saline Lock Forearm] Active Medications - Current Medications Current Medications: Generic Name Dose Route Start Last Admin Trade Name Freq PRN Reason Stop Dose Admin Acetaminophen 650 mg 07/19/20 23:10 Tylenol PO Q4H PRN Pain MILD(1-3)/Fever >100.5/[place] Benztropine Mesylate 0.5 mg 07/19/20 23:45 07/20/20 10:32 Cogentin PO 0.5 mg BID [place] Administration Clonazepam 0.5 mg 07/19/20 23:08 Klonopin PO BID PRN Anxiety Dexamethasone 8 mg 07/19/20 23:45 07/20/20 00:55 Decadron IV 8 mg Q24HR@2200 [place] Administration Doxepin HCl 25 mg 07/20/20 22:00 Sinequan PO QHS AUG[place]IN Enoxaparin Sodium 40 mg 07/19/20 23:30 07/20/20 00:58 Enoxaparin SUB-Q 40 mg QDAY@2200 [place] Administration Protocol Escitalopram Oxalate 10 mg 07/20/20 10:00 07/20/20 10:45 Lexapro PO Not Given QDAY AUG[place]IN Famotidine 20 mg 07/20/20 10:00 07/20/20 10:32 Pepcid PO 20 mg BID AUG[place]IN Administration Fluticasone Propionate 50 mcg 07/20/20 10:00 07/20/20 10:33 Flonase NS 50 mcg QDAY [place] Administration Furosemide 40 mg 07/20/20 10:00 07/20/20 10:33 Lasix PO 40 mg QDAY AUG[place]IN Administration Hydromorphone HCl 0.5 mg 07/19/20 23:10 Dilaudid IV Q3H PRN Pain , Severe (7-10) Hydroxyzine HCl 25 mg 07/20/20 08:00 07/20/20 13:48 Atarax PO 25 mg TID AUGUSTIN Administration Azithromycin 500 mg/ Sodium 250 mls @ 250 mls/hr 07/20/20 10:00 07/20/20 10:50 Chloride IV 250 mls/hr Q24HR A[place]IN Administration Protocol Ceftriaxone Sodium 2 gm in 100 mls @ 200 mls/hr 07/20/20 10:00 07/20/20 10:32 Rocephin/Ns 2 Gm/100 Ml IV 200 mls/hr Q24HR [place]UG[place]IN Administration Protocol Metoclopramide HCl 10 mg 07/19/20 23:10 Reglan IV Q6H PRN Nausea And Vomiting Olanzapine 5 mg 07/20/20 22:00 Zyprexa PO QHS [place]UG[place] Ondansetron HCl 4 mg 07/19/20 23:10 Zofran IV Q8H PRN Nausea And Vomiting Potassium Chloride 10 meq 07/20/20 10:00 07/20/20 10:32 K-Dur PO 10 meq QDAY AUG[place]IN Administration Propranolol HCl 10 mg 07/20/20 10:00 07/20/20 10:32 Inderal PO 10 mg BID AUG[place]IN Administration Risperidone 1 mg 07/20/20 10:00 07/20/20 10:45 Risperdal PO Not Given BID AUG[place]IN Sodium Chloride 10 ml 07/20/20 10:00 07/20/20 10:33 Sodium Chloride Flush Syringe 10 Ml IV 10 ml BID AUG[place]IN Administration Sodium Chloride 10 ml 07/19/20 23:10 Sodium Chloride Flush Syringe 10 Ml IV PRN PRN LINE FLUSH Tramadol HCl 50 mg 07/19/20 23:08 Ultram PO Q4HR PRN Pain, Moderate (4-6)
[2020-07-20] MEDS: FUROSEMIDE 40 MG TAB PO SCH (18:45)
[2020-07-20] MEDS ORDERED: REMDESIVIR 100 MG VIAL IV ONE (21:00)
[2020-07-20] MEDS ORDERED: REMDESIVIR 200 MG in SODIUM CHLORIDE 0.9% 250ML 250 ML IV ONE (21:00)
[2020-07-20] MEDS: cloNIDine 0.1 MG TAB PO SCH (21:37)
[2020-07-20] MEDS: MELATONIN 5 MG TAB PO SCH (21:37)
[2020-07-20] MEDS: SODIUM CHLORIDE 0.9% 50 ML IVPB IV SCH (21:37)
[2020-07-20] MEDS: DOXEPIN 25 MG CAP PO SCH (21:45)
[2020-07-21] MEDS: FUROSEMIDE 40 MG TAB PO SCH ×2 (05:32→17:40)
[2020-07-21] MEDS: LEVOTHYROXINE 75 MCG TAB PO SCH (05:32)
[2020-07-21] MEDS: hydrOXYzine HCL 25 MG TAB PO SCH ×3 (08:58→21:53)
[2020-07-21] MEDS: ARIPiprazole 10 MG TAB PO SCH (09:00)
[2020-07-21] MEDS: POTASSIUM CHLORIDE ER 10 MEQ TAB PO SCH (09:00)
[2020-07-21] MEDS: RIVAROXABAN 10 MG TAB PO SCH (09:00)
[2020-07-21] MEDS: FAMOTIDINE 20 MG TAB PO SCH ×2 (09:00→21:53)
[2020-07-21] MEDS: risperiDONE 1 MG TAB PO SCH ×2 (09:00→21:53)
[2020-07-21] MEDS: FLUTICASONE PROPIONATE NASAL SPRAY 16 GM NS SCH (09:00)
[2020-07-21] MEDS: cefTRIAXone/NS 2 GM/100 ML 2 GM/100 ML BAG IV SCH (09:00)
[2020-07-21] MEDS: ESCITALOPRAM 10 MG TAB PO SCH (09:00)
[2020-07-21] MEDS: PROPRANOLOL 10 MG TAB PO SCH ×2 (09:01→21:53)
[2020-07-21] MEDS: BENZTROPINE 0.5 MG TAB PO SCH ×2 (09:02→21:53)
[2020-07-21] MEDS: ARIPiprazole 15 MG TAB PO SCH (09:02)
[2020-07-21] MEDS ORDERED: ARIPIPRAZOLE PO SCH (10:00)
[2020-07-21] MEDS ORDERED: AZITHROMYCIN 250 MG TAB PO SCH (10:00)
--- NOTE | 2020-07-21 10:36 | Progress Note ---
Assessment and Plan Assessment and plan: 50-year-old female patient with significant history of type 2 diabetes mellitus congestive heart failure , hypertension , morbid obesity , obstructive sleep apnea , bipolar , schizophrenia , depression was admitted through emergency room with upper respiratory symptoms and chest congestion, worsening shortness of breath, patient seen PMD Dr. Jose Luis metcalf and sent her for Covid rule out. COVID-19 test positive, placed in isolation, receiving IV steroids And remdesivir, has bilateral pneumonia, on empiric antibiotics, ID evaluating the patient. --Positive COVID-19 test [07/20/2020] Current Visit: Yes Status: Acute Plan to address problem: Coronavirus PCR test positive Contact and droplet isolation IV dexamethasone Remdesivir ID following Inflammatory markers normal range Supportive care -- Bilateral pneumonia Current Visit: Yes Status: Acute Plan to address problem: DC Rocephin and Zithromax Procalcitonin level low Follow ID recommendations Home oxygen evaluation every other day --H/o atrial fibrillation ; Current Visit: Yes Status: Acute Plan to address problem: Continue current management Anticoagulation with Xarelto --History of depression Current Visit: Yes Status: Chronic . Plan to address problem: Continue home antidepressants Patient does not have suicidal thoughts or ideation -- Bipolar 1 disorder, depressed Current Visit: Yes Status: Chronic Plan to address problem: Continue Zyprexa --NASRA (generalized anxiety disorder) Current Visit: No Status: Chronic Plan to address problem: Anxiolytes --Morbid obesity; BMI 45.0 Current Visit: Yes Status: Acute . Plan to address problem: Patient needs dietary modification exercise as tolerated and weight reduction when medically stable Need outpatient sleep study to rule out obstructive sleep apnea. --DVT prophylaxis Current Visit: Yes Status: Acute Plan to address problem: Patient on Xarelto We will closely monitor the patient and adjust management as needed Plan of care reviewed with the patient and her nurse 07/21/2020; positive Covid infection, ID evaluated, on steroids and remdesivir, procalcitonin low Empiric antibiotics discontinued, closely monitor, home oxygen evaluation History Interval history: I have seen and examined the patient at the bedside today I have personally implemented strict isolation PPE protocols Patient complains of generalized weakness and fatigue Mild shortness of breath Vital signs noted Hospitalist Physical - Constitutional Vitals: Temp Pulse Resp BP Pulse Ox 97.9 F 64 16 160/64 95 07/21/20 05:02 07/21/20 09:01 07/21/20 05:02 07/21/20 09:01 07/21/20 05:02 General appearance: Present: mild distress, well-nourished, obese (Morbidly obese) - EENT Eyes: Present: PERRL, EOM intact - Neck Neck: Present: supple, normal ROM - Respiratory Respiratory effort: normal Respiratory: bilateral: diminished, rhonchi, negative: rales, wheezing - Cardiovascular Rhythm: regular Heart Sounds: Present: S1 & S2 - Extremities Extremities: no ischemia, No edema - Abdominal General gastrointestinal: soft, non-tender, non-distended, normal bowel sounds - Integumentary Integumentary: Present: clear, warm - Psychiatric Psychiatric: appropriate mood/affect, cooperative - Neurologic Neurologic: moves all extremities HEART Score - HEART Score Troponin: Troponin T < 0.010 ng/mL (0.00-0.029) 07/19/20 14:35 Results - Labs CBC & Chem 7: 07/20/20 06:04 07/20/20 06:04 Labs: Laboratory Last Values WBC 6.8 K/mm3 (4.5-11.0) 07/20/20 06:04 RBC 4.75 M/mm3 (3.65-5.03) 07/20/20 06:04 Hgb 12.9 gm/dl (10.1-14.3) 07/20/20 06:04 Hct 39.3 % (30.3-42.9) 07/20/20 06:04 MCV 83 fl (79-97) 07/20/20 06:04 MCH 27 pg (28-32) L 07/20/20 06:04 MCHC 33 % (30-34) 07/20/20 06:04 RDW 15.8 % (13.2-15.2) H 07/20/20 06:04 Plt Count 314 K/mm3 (140-440) 07/20/20 06:04 Lymph % (Auto) 16.7 % (13.4-35.0) 07/20/20 06:04 [place] % (Auto) 1.2 % (0.0-7.3) 07/20/20 06:04 Eos % (Auto) 0.3 % (0.0-4.3) 07/20/20 06:04 Baso % (Auto) 0.4 % (0.0-1.8) 07/20/20 06:04 Lymph # (Auto) 1.1 K/mm3 (1.2-5.4) L 07/20/20 06:04 [place] # (Auto) 0.1 K/mm3 (0.0-0.8) 07/20/20 06:04 Eos # (Auto) 0.0 K/mm3 (0.0-0.4) 07/20/20 06:04 Baso # (Auto) 0.0 K/mm3 (0.0-0.1) 07/20/20 06:04 Seg Neutrophils % 81.4 % (40.0-70.0) H 07/20/20 06:04 Seg Neutrophils # 5.5 K/mm3 (1.8-7.7) 07/20/20 06:04 D-Dimer 166.92 ng/mlDDU (0-234) 07/19/20 23:51 Sodium 141 mmol/L (137-145) 07/20/20 06:04 Potassium 4.7 mmol/L (3.6-5.0) 07/20/20 06:04 Chloride 106.2 mmol/L (98-107) 07/20/20 06:04 Carbon Dioxide 24 mmol/L (22-30) 07/20/20 06:04 Anion Gap 16 mmol/L 07/20/20 06:04 BUN 12 mg/dL (7-17) 07/20/20 06:04 Creatinine 0.8 mg/dL (0.6-1.2) 07/20/20 06:04 Estimated GFR > 60 ml/min 07/20/20 06:04 BUN/Creatinine Ratio 15 % 07/20/20 06:04 Glucose 149 mg/dL (65-100) H 07/20/20 06:04 POC Glucose 104 mg/dL (70-105) 07/20/20 21:22 Hemoglobin A1c 5.6 % (4-6) 07/19/20 23:51 Calcium 9.4 mg/dL (8.4-10.2) 07/20/20 06:04 Ferritin 76.4 ng/mL (10.0-200.0) 07/19/20 23:51 Total Bilirubin < 0.20 mg/dL (0.1-1.2) 07/20/20 06:04 AST 28 units/L (5-40) 07/20/20 06:04 ALT 22 units/L (7-56) 07/20/20 06:04 Alkaline Phosphatase 100 units/L (35-129) 07/20/20 06:04 Lactate Dehydrogenase 144 units/L (91-180) 07/19/20 23:51 Troponin T < 0.010 ng/mL (0.00-0.029) 07/19/20 14:35 C-Reactive Protein 0.30 mg/dL (0.00-1.30) 07/19/20 23:51 Total Protein 7.4 g/dL (6.3-8.2) 07/20/20 06:04 Albumin 3.9 g/dL (3.9-5) 07/20/20 06:04 Albumin/Globulin Ratio 1.1 % 07/20/20 06:04 Procalcitonin < 0.05 ng/mL (<0.15) 07/19/20 15:14 Coronavirus (PCR) Positive (Negative) A 07/20/20 10:09 David/IV: Voiding Method Toilet IV Catheter Type [Right INT / Saline Lock Forearm] Active Medications - Current Medications Current Medications: Generic Name Dose Route Start Last Admin Trade Name Freq PRN Reason Stop Dose Admin Acetaminophen 650 mg 07/19/20 23:10 Tylenol PO Q4H PRN Pain MILD(1-3)/Fever >100.5/[place] Aripiprazole 10 mg 07/21/20 10:00 07/21/20 09:00 Aripiprazole PO 10 mg QDAY [place] Administration Aripiprazole 30 mg 07/21/20 10:00 07/21/20 09:02 Abilify PO 30 mg QDAY [place] Administration Azithromycin 500 mg 07/21/20 10:00 07/21/20 09:03 Zithromax PO 500 mg QDAY [place] Administration Benztropine Mesylate 0.5 mg 07/19/20 23:45 07/21/20 09:02 Cogentin PO 0.5 mg BID [place] Administration Clonazepam 0.5 mg 07/19/20 23:08 Klonopin PO BID PRN Anxiety Clonidine HCl 0.1 mg 07/20/20 22:00 07/20/20 21:37 Catapres PO 0.1 mg QHS AUG[place]IN Administration Dexamethasone 8 mg 07/19/20 23:45 07/20/20 21:37 Decadron IV 8 mg Q24HR@2200 [place] Administration Doxepin HCl 25 mg 07/20/20 22:00 07/20/20 21:45 Sinequan PO 25 mg QHS [place]UG[place] Administration Escitalopram Oxalate 10 mg 07/20/20 10:00 07/21/20 09:00 Lexapro PO 10 mg QDAY [place] Administration Famotidine 20 mg 07/20/20 10:00 07/21/20 09:00 Pepcid PO 20 mg BID [place] Administration Fluticasone Propionate 50 mcg 07/20/20 10:00 07/21/20 09:00 Flonase NS 50 mcg QDAY [place] Administration Furosemide 40 mg 07/20/20 18:00 07/21/20 05:32 Lasix PO 40 mg 0600,1800 [place] Administration Hydromorphone HCl 0.5 mg 07/19/20 23:10 Dilaudid IV Q3H PRN Pain , Severe (7-10) Hydroxyzine HCl 25 mg 07/20/20 08:00 07/21/20 08:58 Atarax PO 25 mg TID AUG[place]IN Administration Ceftriaxone Sodium 2 gm in 100 mls @ 200 mls/hr 07/20/20 10:00 07/21/20 09:00 Rocephin/Ns 2 Gm/100 Ml IV 200 mls/hr Q24HR [place]UG[place]IN Administration Protocol REMDESIVIR 100 mg/ Sodium 250 mls @ 500 mls/hr 07/21/20 21:00 Chloride IV 07/24/20 21:29 Q24HR@2100 [facility] Levothyroxine Sodium 75 mcg 07/21/20 06:00 07/21/20 05:32 Synthroid PO 75 mcg DAILY@0600 [place] Administration Melatonin 5 mg 07/20/20 22:00 07/20/20 21:37 Melatonin PO 5 mg HS [facility] Administration Metoclopramide HCl 10 mg 07/19/20 23:10 Reglan IV Q6H PRN Nausea And Vomiting Olanzapine 5 mg 07/20/20 22:00 07/20/20 21:38 Zyprexa PO 5 mg QHS [place] Administration Ondansetron HCl 4 mg 07/19/20 23:10 Zofran IV Q8H PRN Nausea And Vomiting Potassium Chloride 10 meq 07/20/20 10:00 07/21/20 09:00 K-Dur PO 10 meq QDAY [place] Administration Propranolol HCl 10 mg 07/20/20 10:00 07/21/20 09:01 Inderal PO 10 mg BID [place] Administration Risperidone 1 mg 07/20/20 10:00 07/21/20 09:00 Risperdal PO 1 mg BID [place]UG[place] Administration Rivaroxaban 10 mg 07/21/20 10:00 07/21/20 09:00 Xarelto PO 10 mg QDAY [place] Administration Protocol Sodium Chloride 10 ml 07/20/20 10:00 07/21/20 09:03 Sodium Chloride Flush Syringe 10 Ml IV 10 ml BID [place]UG[place] Administration Sodium Chloride 10 ml 07/19/20 23:10 Sodium Chloride Flush Syringe 10 Ml IV PRN PRN LINE FLUSH Sodium Chloride 50 ml 07/20/20 21:00 07/20/20 21:37 Nacl 0.9% IV 07/24/20 21:01 50 ml Q24HR@2100 [place] Administration Tramadol HCl 50 mg 07/19/20 23:08 Ultram PO Q4HR PRN Pain, Moderate (4-6)
[2020-07-21] MEDS: DEXAMETHASONE 4 MG TAB PO SCH (14:31)
--- NOTE | 2020-07-21 16:15 | Consultation ---
History of Present Illness - Reason for Consult Consult date: 07/21/20 COVID Requesting physician: HENRY KRUSE - History of Present Illness 50 years old female with history of morbid obesity, obstructive sleep apnea, irritable bowel syndrome, diabetes mellitus, CHF, hypertension, bipolar depression, schizophrenia, admitted on 07/19/2020 secondary to few days history o f headaches, cough, nasal congestion, chest congestion, fatigue and shortness of breath. On arrival, temperature 98.6, HR 62, RR 20, O2 sat 97%, BP 123/67. Initial WBC normal. Ferritin normal. D-dimer normal. Creatinine 0.4. SARS-CoV-2 PCR positive. Patient currently on room air. Review of Systems: reviewed ED and H&P notes. Limited due to PPE conservation strategy Medications and Allergies Allergies Allergy/AdvReac Type Severity Reaction Status Date / Time acetaminophen [From Lortab] Allergy Shortness Verified 02/12/19 14:14 of Breath aspirin Allergy Hives Verified 02/12/19 14:14 divalproex sodium Allergy Rash Verified 12/27/18 01:28 [From Depakote] hydrocodone [From Lortab] Allergy Hives Verified 02/12/19 14:14 latex Allergy Rash Verified 02/12/19 14:14 nut - unspecified Allergy Shortness Verified 02/12/19 14:14 of Breath oxycodone Allergy Hives Verified 02/12/19 14:14 Penicillins Allergy Rash Verified 12/26/18 18:35 propoxyphene Allergy Rash Verified 12/26/18 18:35 [From Darvocet-N] Sulfa (Sulfonamide Allergy Rash Verified 12/26/18 18:35 Antibiotics) dairy Allergy Diarrhea Uncoded 02/12/19 14:15 napsylate Allergy Hives Uncoded 02/12/19 14:14 Home Medications Medication Instructions Recorded Confirmed Last Taken Type Fluticasone [Flonase] 1 spray NS QDAY 09/09/19 07/20/20 Unknown History Benztropine [Cogentin] 0.5 mg PO BID #60 09/18/19 07/20/20 Unknown Rx propranoloL [Inderal] 10 mg PO BID #60 09/18/19 07/20/20 Unknown Rx ARIPiprazole [Abilify] 40 mg PO DAILY 07/20/20 07/20/20 Unknown History Furosemide [Lasix TAB] 40 mg PO BID 07/20/20 07/20/20 Unknown History Ipratropium [place] 15 ml NS TID 07/20/20 07/20/20 Unknown History Levothyroxine [Synthroid] 75 mcg PO QAM 07/20/20 07/20/20 Unknown History Melatonin [Melatonin 5MG TAB] 5 mg PO HS 07/20/20 07/20/20 Unknown History OLANzapine [ZyPREXA] 5 mg PO QHS 07/20/20 07/20/20 Unknown History Omeprazole 40 mg PO QAM 07/20/20 07/20/20 Unknown History Potassium Chloride [K-Dur] 20 meq PO QDAY 07/20/20 07/20/20 Unknown History Rivaroxaban [Xarelto] 10 mg PO QDAY 07/20/20 07/20/20 Unknown History Simvastatin 20 mg PO DAILY 07/20/20 07/20/20 Unknown History Sucralfate [Carafate] 10 ml PO QAM 07/20/20 07/20/20 Unknown History cloNIDine [Catapres] 0.1 mg PO QHS 07/20/20 07/20/20 Unknown History verapamiL [Calan] 120 mg PO BID 07/20/20 07/20/20 Unknown History Active Meds: Active Medications Acetaminophen (Tylenol) 650 mg PO Q4H PRN PRN Reason: Pain MILD(1-3)/Fever >100.5/[place] Aripiprazole (Aripiprazole) 10 mg PO QDAY [facility] Last Admin: 07/21/20 09:00 Dose: 10 mg Documented by: Aripiprazole (Abilify) 30 mg PO QDAY [facility] Last Admin: 07/21/20 09:02 Dose: 30 mg Documented by: Azithromycin (Zithromax) 500 mg PO QDAY [facility] Stop: 07/23/20 10:01 Last Admin: 07/21/20 09:03 Dose: 500 mg Documented by: Benztropine Mesylate (Cogentin) 0.5 mg PO BID [facility] Last Admin: 07/21/20 09:02 Dose: 0.5 mg Documented by: Clonazepam (Klonopin) 0.5 mg PO BID PRN PRN Reason: Anxiety [facility] Admin: 07/20/20 21:37 Dose: 0.1 mg Documented by: Dexamethasone (Decadron) 6 mg PO DAILY [facility] Stop: 07/28/20 10:01 Last Admin: 07/21/20 14:31 Dose: 6 mg Documented by: Doxepin HCl (Sinequan) 25 mg PO QHS [facility] Last Admin: 07/20/20 21:45 Dose: 25 mg Documented by: Escitalopram Oxalate (Lexapro) 10 mg PO QDAY [facility] Last Admin: 07/21/20 09:00 Dose: 10 mg Documented by: Famotidine (Pepcid) 20 mg PO BID [facility] Last Admin: 07/21/20 09:00 Dose: 20 mg Documented by: Fluticasone Propionate (Flonase) 50 mcg NS QDAY [facility] Last Admin: 07/21/20 09:00 Dose: 50 mcg Documented by: Furosemide (Lasix) 40 mg PO 0600,1800 [facility] Last Admin: 07/21/20 05:32 Dose: 40 mg Documented by: Hydromorphone HCl (Dilaudid) 0.5 mg IV Q3H PRN PRN Reason: Pain , Severe (7-10) Hydroxyzine HCl (Atarax) 25 mg PO TID [facility] Last Admin: 07/21/20 14:30 Dose: 25 mg Documented by: Ceftriaxone Sodium (Rocephin/Ns 2 Gm/100 Ml) 2 gm in 100 mls @ 200 mls/hr IV Q24HR [facility]; Protocol Last Admin: 07/21/20 09:00 Dose: 200 mls/hr Documented by: REMDESIVIR 100 mg/ Sodium (Chloride) 250 mls @ 500 mls/hr IV Q24HR@2100 [facility] Stop: 07/24/20 21:29 Levothyroxine Sodium (Synthroid) 75 mcg PO DAILY@0600 [facility] Last Admin: 07/21/20 05:32 Dose: 75 mcg Documented by: Melatonin (Melatonin) 5 mg PO HS [facility] Last Admin: 07/20/20 21:37 Dose: 5 mg Documented by: Metoclopramide HCl (Reglan) 10 mg IV Q6H PRN PRN Reason: Nausea And Vomiting Olanzapine (Zyprexa) 5 mg PO QHS [facility] Last Admin: 07/20/20 21:38 Dose: 5 mg Documented by: Ondansetron HCl (Zofran) 4 mg IV Q8H PRN PRN Reason: Nausea And Vomiting Potassium Chloride (K-Dur) 10 meq PO QDAY [facility] Last Admin: 07/21/20 09:00 Dose: 10 meq Documented by: Propranolol HCl (Inderal) 10 mg PO BID [facility] Last Admin: 07/21/20 09:01 Dose: 10 mg Documented by: Risperidone (Risperdal) 1 mg PO BID [facility] Last Admin: 07/21/20 09:00 Dose: 1 mg Documented by: Rivaroxaban (Xarelto) 10 mg PO QDAY [facility]; Protocol Last Admin: 07/21/20 09:00 Dose: 10 mg Documented by: Sodium Chloride (Sodium Chloride Flush Syringe 10 Ml) 10 ml IV BID [facility] Last Admin: 07/21/20 09:03 Dose: 10 ml Documented by: Sodium Chloride (Sodium Chloride Flush Syringe 10 Ml) 10 ml IV PRN PRN PRN Reason: LINE FLUSH Sodium Chloride (Nacl 0.9%) 50 ml IV Q24HR@2100 [facility] Stop: 07/24/20 21:01 Last Admin: 07/20/20 21:37 Dose: 50 ml Documented by: Tramadol HCl (Ultram) 50 mg PO Q4HR PRN PRN Reason: Pain, Moderate (4-6) Physical Examination - Physical Exam Narrative exam: Physical Exam: reviewed ED and hospitalist notes, limited due to conservation of PPE and decrease risk of transmission. General appearance: limited due to conservation of PPE Eyes: limited due to conservation of PPE HENT: Atraumatic; limited due to conservation of PPE Lungs: limited due to conservation of PPE CV: limited due to conservation of PPE Abdomen: limited due to conservation of PPE Extremities: limited due to conservation of PPE Skin: limited due to conservation of PPE Psych: limited due to conservation of PPE Neuro: limited due to conservation of PPE - Constitutional Vitals: Vital Signs Temp Pulse Resp BP Pulse Ox 97.9 F 63 18 127/69 94 07/21/20 11:06 07/21/20 11:06 07/21/20 11:06 07/21/20 11:06 07/21/20 11:06 Temperature -Last 24 Hours Temperature 97.9 F Temperature 97.9 F Temperature 98.1 F Temperature 98.1 F Results - Labs CBC & Chem 7: 07/20/20 06:04 07/20/20 06:04 Assessment and Plan Cultures: SARS CoV2 PCR positive Assessment: 50 years old female with history of morbid obesity, obstructive sleep apnea, irritable bowel syndrome, diabetes mellitus, CHF, hypertension, bipolar depression, schizophrenia, admitted on 07/19/2020 secondary to few days history of headaches, cough, nasal congestion, chest congestion, fatigue and shortness of breath: #COVID-19 infection: No evidence of sepsis, hypoxia ? Minimally symptomatic COVID-19 infection. Inflammatory markers are all normal. D-dimer normal. #Morbid obesity: Associated with worse outcomes #Diabetes mellitus: Associated with worse outcomes Recommendations: -Obtain 6-minute walking test pulse oximeter, if patient passes test for 2 days in a row, today and tomorrow then she can be discharge -Continue Dexamethasone 6 mg IV/PO daily for 10 days -Continue Remdesivir 200 mg IV q day x 1 day followed by 100 mg IV q day x 4 days (CrCl>30. Order placed) -Monitor inflammatory markers - ferritin, Ddimer, CRP, LDH -Stop ceftriaxone and azithromycin, procalcitonin <0.25 ng/mL -Monitor liver function test on Remdesivir -Continue anticoagulation per System Protocol All laboratory, cultures and imaging were reviewed. Discussed with attending. Will follow Indiana Mckinnon MD Infectious Diseases [facility] ([facility]) M [phone] O [phone]
[2020-07-21] MEDS: REMDESIVIR 100 MG in SODIUM CHLORIDE 0.9% 250ML 250 ML IV SCH (21:52)
[2020-07-21] MEDS: ACETAMINOPHEN 325 MG TAB PO PRN (21:52)
[2020-07-21] MEDS: SODIUM CHLORIDE 0.9% 50 ML IVPB IV SCH (21:52)
[2020-07-21] MEDS: cloNIDine 0.1 MG TAB PO SCH (21:53)
[2020-07-21] MEDS: MELATONIN 5 MG TAB PO SCH (21:53)
[2020-07-21] MEDS: DOXEPIN 25 MG CAP PO SCH (21:54)
[2020-07-22] MEDS: LEVOTHYROXINE 75 MCG TAB PO SCH (05:04)
[2020-07-22] MEDS: ACETAMINOPHEN 325 MG TAB PO PRN (05:04)
[2020-07-22] MEDS: FUROSEMIDE 40 MG TAB PO SCH ×2 (05:04→18:37)
--- NOTE | 2020-07-22 09:17 | Progress Note ---
Assessment and Plan Assessment and plan: --Positive COVID-19 test [07/20/2020] Coronavirus PCR test positive Contact and droplet isolation IV dexamethasone Remdesivir ID following Inflammatory markers normal range Supportive care -- Bilateral pneumonia DC Rocephin and Zithromax Procalcitonin level low Follow ID recommendations Home oxygen evaluation every other day --H/o atrial fibrillation ; Continue current management Anticoagulation with Xarelto --History of depression Continue home antidepressants Patient does not have suicidal thoughts or ideation -- Bipolar 1 disorder, depressed Continue Zyprexa --NASRA (generalized anxiety disorder) Anxiolyt --Morbid obesity; BMI 45.0 Patient needs dietary modification exercise as tolerated and weight reduction when medically stable Need outpatient sleep study to rule out obstructive sleep apnea. --DVT prophylaxis Patient on Xarelto We will closely monitor the patient and adjust management as needed Plan of care reviewed with the patient and her nurse 07/21/2020; positive Covid infection, ID evaluated, on steroids and remdesivir, procalcitonin low Empiric antibiotics discontinued, closely monitor, home oxygen evaluation 07/22/2020. Exercise pulse oximetry today and consider discharge based on results. Continue dexamethasone and remdesivir. Monitor inflammatory markers of ferritin, D-dimer and CRP and LDH. Continue anticoagulation per protocol. History Interval history: 50-year-old female patient with significant history of type 2 diabetes mellitus congestive heart failure , hypertension , morbid obesity , obstructive sleep apnea , bipolar , schizophrenia , depression was admitted through emergency room with upper respiratory symptoms and chest congestion, worsening shortness of breath, patient seen PMD Dr. Jose Luis metcalf and sent her for Covid rule out. COVID-19 test positive, placed in isolation, receiving IV steroids And remdesivir, has bilateral pneumonia, on empiric antibiotics, ID evaluating the patient. Hospitalist Physical - Constitutional Vitals: Temp Pulse Resp BP Pulse Ox 98.3 F 65 20 133/77 95 07/21/20 22:00 07/21/20 21:59 07/21/20 22:00 07/21/20 21:59 07/21/20 21:59 General appearance: Present: mild distress, well-nourished, obese (Morbidly obese) - EENT Eyes: Present: PERRL, EOM intact ENT: hearing intact, clear oral mucosa, dentition normal - Neck Neck: Present: supple, normal ROM - Respiratory Respiratory effort: normal Respiratory: bilateral: CTA - Cardiovascular Rhythm: regular Heart Sounds: Present: S1 & S2. Absent: gallop, rub - Extremities Extremities: no ischemia, No edema, Full ROM - Abdominal General gastrointestinal: soft, non-tender, non-distended, normal bowel sounds - Integumentary Integumentary: Present: clear, warm, dry - Neurologic Neurologic: CNII-XII intact, moves all extremities HEART Score - HEART Score Troponin: Troponin T < 0.010 ng/mL (0.00-0.029) 07/19/20 14:35 Results - Labs CBC & Chem 7: 07/20/20 06:04 07/20/20 06:04 Labs: Laboratory Last Values WBC 6.8 K/mm3 (4.5-11.0) 07/20/20 06:04 RBC 4.75 M/mm3 (3.65-5.03) 07/20/20 06:04 Hgb 12.9 gm/dl (10.1-14.3) 07/20/20 06:04 Hct 39.3 % (30.3-42.9) 07/20/20 06:04 MCV 83 fl (79-97) 07/20/20 06:04 MCH 27 pg (28-32) L 07/20/20 06:04 MCHC 33 % (30-34) 07/20/20 06:04 RDW 15.8 % (13.2-15.2) H 07/20/20 06:04 Plt Count 314 K/mm3 (140-440) 07/20/20 06:04 Lymph % (Auto) 16.7 % (13.4-35.0) 07/20/20 06:04 [place] % (Auto) 1.2 % (0.0-7.3) 07/20/20 06:04 Eos % (Auto) 0.3 % (0.0-4.3) 07/20/20 06:04 Baso % (Auto) 0.4 % (0.0-1.8) 07/20/20 06:04 Lymph # (Auto) 1.1 K/mm3 (1.2-5.4) L 07/20/20 06:04 [place] # (Auto) 0.1 K/mm3 (0.0-0.8) 07/20/20 06:04 Eos # (Auto) 0.0 K/mm3 (0.0-0.4) 07/20/20 06:04 Baso # (Auto) 0.0 K/mm3 (0.0-0.1) 07/20/20 06:04 Seg Neutrophils % 81.4 % (40.0-70.0) H 07/20/20 06:04 Seg Neutrophils # 5.5 K/mm3 (1.8-7.7) 07/20/20 06:04 D-Dimer 166.92 ng/mlDDU (0-234) 07/19/20 23:51 Sodium 141 mmol/L (137-145) 07/20/20 06:04 Potassium 4.7 mmol/L (3.6-5.0) 07/20/20 06:04 Chloride 106.2 mmol/L (98-107) 07/20/20 06:04 Carbon Dioxide 24 mmol/L (22-30) 07/20/20 06:04 Anion Gap 16 mmol/L 07/20/20 06:04 BUN 12 mg/dL (7-17) 07/20/20 06:04 Creatinine 0.8 mg/dL (0.6-1.2) 07/20/20 06:04 Estimated GFR > 60 ml/min 07/20/20 06:04 BUN/Creatinine Ratio 15 % 07/20/20 06:04 Glucose 149 mg/dL (65-100) H 07/20/20 06:04 POC Glucose 104 mg/dL (70-105) 07/20/20 21:22 Hemoglobin A1c 5.6 % (4-6) 07/19/20 23:51 Calcium 9.4 mg/dL (8.4-10.2) 07/20/20 06:04 Ferritin 76.4 ng/mL (10.0-200.0) 07/19/20 23:51 Total Bilirubin < 0.20 mg/dL (0.1-1.2) 07/20/20 06:04 AST 28 units/L (5-40) 07/20/20 06:04 ALT 22 units/L (7-56) 07/20/20 06:04 Alkaline Phosphatase 100 units/L (35-129) 07/20/20 06:04 Lactate Dehydrogenase 144 units/L (91-180) 07/19/20 23:51 Troponin T < 0.010 ng/mL (0.00-0.029) 07/19/20 14:35 C-Reactive Protein 0.30 mg/dL (0.00-1.30) 07/19/20 23:51 Total Protein 7.4 g/dL (6.3-8.2) 07/20/20 06:04 Albumin 3.9 g/dL (3.9-5) 07/20/20 06:04 Albumin/Globulin Ratio 1.1 % 07/20/20 06:04 Procalcitonin < 0.05 ng/mL (<0.15) 07/19/20 15:14 Coronavirus (PCR) Positive (Negative) A 07/20/20 10:09 David/IV: Voiding Method Toilet IV Catheter Type [Right INT / Saline Lock Forearm] Active Medications - Current Medications Current Medications: Generic Name Dose Route Start Last Admin Trade Name Freq PRN Reason Stop Dose Admin Acetaminophen 650 mg 07/19/20 23:10 07/22/20 05:04 Tylenol PO 650 mg Q4H PRN Administration Pain MILD(1-3)/Fever >100.5/[place] Aripiprazole 10 mg 07/21/20 10:00 07/21/20 09:00 Aripiprazole PO 10 mg QDAY [facility] Administration Aripiprazole 30 mg 07/21/20 10:00 07/21/20 09:02 Abilify PO 30 mg QDAY [facility] Administration Benztropine Mesylate 0.5 mg 07/19/20 23:45 07/21/20 21:53 Cogentin PO 0.5 mg BID [facility] Administration Clonazepam 0.5 mg 07/19/20 23:08 Klonopin PO BID PRN Anxiety Clonidine HCl 0.1 mg 07/20/20 22:00 07/21/20 21:53 Catapres PO 0.1 mg QHS [facility] Administration Dexamethasone 6 mg 07/21/20 12:00 07/21/20 14:31 Decadron PO 07/28/20 10:01 6 mg DAILY [facility] Administration Doxepin HCl 25 mg 07/20/20 22:00 07/21/20 21:54 Sinequan PO 25 mg QHS [facility] Administration Escitalopram Oxalate 10 mg 07/20/20 10:00 07/21/20 09:00 Lexapro PO 10 mg QDAY [facility] Administration Famotidine 20 mg 07/20/20 10:00 07/21/20 21:53 Pepcid PO 20 mg BID [facility] Administration Fluticasone Propionate 50 mcg 07/20/20 10:00 07/21/20 09:00 Flonase NS 50 mcg QDAY [facility] Administration Furosemide 40 mg 07/20/20 18:00 07/22/20 05:04 Lasix PO 40 mg 0600,1800 [facility] Administration Hydromorphone HCl 0.5 mg 07/19/20 23:10 Dilaudid IV Q3H PRN Pain , Severe (7-10) Hydroxyzine HCl 25 mg 07/20/20 08:00 07/21/20 21:53 Atarax PO 25 mg TID [facility] Administration REMDESIVIR 100 mg/ Sodium 250 mls @ 500 mls/hr 07/21/20 21:00 07/21/20 21:52 Chloride IV 07/24/20 21:29 500 mls/hr Q24HR@2100 [facility] Administration Levothyroxine Sodium 75 mcg 07/21/20 06:00 07/22/20 05:04 Synthroid PO 75 mcg DAILY@0600 [facility] Administration Melatonin 5 mg 07/20/20 22:00 07/21/20 21:53 Melatonin PO 5 mg HS [facility] Administration Metoclopramide HCl 10 mg 07/19/20 23:10 Reglan IV Q6H PRN Nausea And Vomiting Olanzapine 5 mg 07/20/20 22:00 07/21/20 21:53 Zyprexa PO 5 mg QHS [facility] Administration Ondansetron HCl 4 mg 07/19/20 23:10 Zofran IV Q8H PRN Nausea And Vomiting Potassium Chloride 10 meq 07/20/20 10:00 07/21/20 09:00 K-Dur PO 10 meq QDAY [facility] Administration Propranolol HCl 10 mg 07/20/20 10:00 07/21/20 21:53 Inderal PO 10 mg BID [facility] Administration Risperidone 1 mg 07/20/20 10:00 07/21/20 21:53 Risperdal PO 1 mg BID [facility] Administration Rivaroxaban 10 mg 07/21/20 10:00 07/21/20 09:00 Xarelto PO 10 mg QDAY [facility] Administration Protocol Sodium Chloride 10 ml 07/20/20 10:00 07/21/20 21:52 Sodium Chloride Flush Syringe 10 Ml IV 10 ml BID [facility] Administration Sodium Chloride 10 ml 07/19/20 23:10 Sodium Chloride Flush Syringe 10 Ml IV PRN PRN LINE FLUSH Sodium Chloride 50 ml 07/20/20 21:00 07/21/20 21:52 Nacl 0.9% IV 07/24/20 21:01 50 ml Q24HR@2100 [facility] Administration Tramadol HCl 50 mg 07/19/20 23:08 Ultram PO Q4HR PRN Pain, Moderate (4-6)
--- NOTE | 2020-07-22 09:31 | Progress Note ---
Assessment and Plan Cultures: SARS CoV2 PCR positive Assessment: 50 years old female with history of morbid obesity, obstructive sleep apnea, irritable bowel syndrome, diabetes mellitus, CHF, hypertension, bipolar depression, schizophrenia, admitted on 07/19/2020 secondary to few days history of headaches, cough, nasal congestion, chest congestion, fatigue and shortness of breath: #COVID-19 infection: No evidence of sepsis, Inflammatory markers are all normal. D-dimer normal. #Hypoxia: Currently on 2 L #Morbid obesity: Associated with worse outcomes #Diabetes mellitus: Associated with worse outcomes Recommendations: -Continue Dexamethasone 6 mg IV/PO daily for 10 days -Continue Remdesivir D2 of 5 -Monitor inflammatory markers - ferritin, Ddimer, CRP, LDH -ordered today -Monitor liver function test on Remdesivir -Continue anticoagulation per System Protocol -Obtain 6-minute walking test pulse oximeter tomorrow, if patient passes test then she can be discharge All laboratory, cultures and imaging were reviewed. Will follow Indiana Mckinnon MD Infectious Diseases Delinquency Prevention Social Worker [facility] ([facility]) M [phone] O [phone] Subjective Date of service: 07/22/20 Principal diagnosis: COVID Interval history: Remains on 2 L nasal cannula, no fever Objective - Exam Narrative Exam: Physical Exam: reviewed ED and hospitalist notes, limited due to conservation of PPE and decrease risk of transmission. General appearance: limited due to conservation of PPE Eyes: limited due to conservation of PPE HENT: Atraumatic; limited due to conservation of PPE Lungs: limited due to conservation of PPE CV: limited due to conservation of PPE Abdomen: limited due to conservation of PPE Extremities: limited due to conservation of PPE Skin: limited due to conservation of PPE Psych: limited due to conservation of PPE Neuro: limited due to conservation of PPE - Constitutional Vitals: Vital Signs Temp Pulse Resp BP Pulse Ox 98.3 F 65 20 133/77 95 07/21/20 22:00 07/21/20 21:59 07/21/20 22:00 07/21/20 21:59 07/21/20 21:59 Temperature -Last 24 Hours Temperature 98.3 F Temperature 98.7 F Temperature 97.9 F - Labs CBC & Chem 7: 07/20/20 06:04 07/20/20 06:04
[2020-07-22] MEDS: ARIPiprazole 10 MG TAB PO SCH (11:16)
[2020-07-22] MEDS: FAMOTIDINE 20 MG TAB PO SCH ×2 (11:16→22:22)
[2020-07-22] MEDS: ESCITALOPRAM 10 MG TAB PO SCH (11:16)
[2020-07-22] MEDS: DEXAMETHASONE 4 MG TAB PO SCH (11:17)
[2020-07-22] MEDS: risperiDONE 1 MG TAB PO SCH ×2 (11:17→22:22)
[2020-07-22] MEDS: BENZTROPINE 0.5 MG TAB PO SCH ×2 (11:17→22:22)
[2020-07-22] MEDS: POTASSIUM CHLORIDE ER 10 MEQ TAB PO SCH (11:17)
[2020-07-22] MEDS: RIVAROXABAN 10 MG TAB PO SCH (11:18)
[2020-07-22] MEDS: ARIPiprazole 15 MG TAB PO SCH (11:19)
[2020-07-22] MEDS: FLUTICASONE PROPIONATE NASAL SPRAY 16 GM NS SCH (11:19)
[2020-07-22] MEDS: PROPRANOLOL 10 MG TAB PO SCH ×2 (11:36→22:22)
[2020-07-22] MEDS: hydrOXYzine HCL 25 MG TAB PO SCH ×3 (11:48→22:48)
[2020-07-22] MEDS: REMDESIVIR 100 MG in SODIUM CHLORIDE 0.9% 250ML 250 ML IV SCH (22:21)
[2020-07-22] MEDS: SODIUM CHLORIDE 0.9% 50 ML IVPB IV SCH (22:22)
[2020-07-22] MEDS: cloNIDine 0.1 MG TAB PO SCH (22:22)
[2020-07-22] MEDS: MELATONIN 5 MG TAB PO SCH (22:22)
[2020-07-22] MEDS: DOXEPIN 25 MG CAP PO SCH (22:22)
[2020-07-23] MEDS: FUROSEMIDE 40 MG TAB PO SCH (05:32)
[2020-07-23] MEDS: LEVOTHYROXINE 75 MCG TAB PO SCH (05:32)
[2020-07-23 06:48] LABS: Alanine Aminotransferase 22 units/L (7-56); Albumin 3.7 g/dL (3.9-5)
[2020-07-23 06:49] LABS: Bilirubin,Direct < 0.2 mg/dL (0-0.2)
--- NOTE | 2020-07-23 08:04 | Discharge Summary ---
Providers - Providers Date of Admission: 07/19/20 16:14 Date of discharge: 07/23/20 Attending physician: SRINIVASA LANGE 07/20/20 15:48 Consult to Physician [CONS] Routine Comment: Consulting Provider: QUINN PABLO Physician Instructions: Reason For Exam: Positive COVID-19 test/bilateral pneumonia Primary care physician: SAMMY ROBERTS Hospitalization Reason for admission: resp failure Condition: Stable Hospital course: 50-year-old female patient with significant history of type 2 diabetes mellitus congestive heart failure , hypertension , morbid obesity , obstructive sleep apnea , bipolar , schizophrenia , depression was admitted through emergency room with upper respiratory symptoms and chest congestion, worsening shortness of breath, patient seen PMD Dr. Jose Luis metcalf and sent her for Covid rule out. COVID-19 test was positive and pt was placed in isolation. The patient received IV steroids And remdesivir. The patient was also treated with antibiotics and seen by ID in consultation. Hospital course, admitting and discharge diagnoses below. --Positive COVID-19 test [07/20/2020] Coronavirus PCR test positive Contact and droplet isolation IV dexamethasone Remdesivir ID following Inflammatory markers normal range Supportive care -- Bilateral pneumonia DC Rocephin and Zithromax Procalcitonin level low Follow ID recommendations Home oxygen evaluation every other day --H/o atrial fibrillation ; Continue current management Anticoagulation with Xarelto --History of depression Continue home antidepressants Patient does not have suicidal thoughts or ideation -- Bipolar 1 disorder, depressed Continue Zyprexa --NASRA (generalized anxiety disorder) Anxiolyt --Morbid obesity; BMI 45.0 Patient needs dietary modification exercise as tolerated and weight reduction when medically stable Need outpatient sleep study to rule out obstructive sleep apnea. --DVT prophylaxis Patient on Xarelto We will closely monitor the patient and adjust management as needed Plan of care reviewed with the patient and her nurse 07/21/2020; positive Covid infection, ID evaluated, on steroids and remdesivir, procalcitonin low Empiric antibiotics discontinued, closely monitor, home oxygen evaluation 07/22/2020. Exercise pulse oximetry today and consider discharge based on resu lts. Continue dexamethasone and remdesivir. Monitor inflammatory markers of ferritin, D-dimer and CRP and LDH. Continue anticoagulation per protocol. 07/23/2020. Patient will be discharged home with dexamethasone 6 mg for 5 more days and continued anticoagulation which the patient was already taking for atrial fibrillation. Patient did well with 6-minute pulse oximetry walk test which was found to have Room air resting pulse OX 95 %, Room air pulse OX during exercise 96 %. Patient resides in a alf and is able to go back to the facility if there is documentation and clearance that the patient would not be a risk to other residents. The patient will need to be quarantined from 10 days when she first began to have symptoms per ID recommendation. Disposition: DC-01 TO HOME OR SELFCARE Time spent for discharge: 32 - Discharge Diagnoses (1) Acute respiratory failure with hypoxia Status: Acute (2) COVID-19 Status: Acute (3) Bilateral pneumonia Status: Acute (4) Bipolar 1 disorder, depressed Status: Chronic (5) CHF (congestive heart failure) Status: Chronic Qualifiers: Heart failure type: combined systolic and diastolic (6) Atrial fibrillation Status: Acute Qualifiers: Atrial fibrillation type: paroxysmal Qualified Code(s): I48.0 - Paroxysmal atrial fibrillation (7) Diabetes Status: Acute (8) Hyperlipidemia Status: Acute Qualifiers: Hyperlipidemia type: mixed hyperlipidemia Qualified Code(s): E78.2 - Mixed hyperlipidemia (9) Hypothyroidism Status: Acute Qualifiers: Hypothyroidism type: acquired Qualified Code(s): E03.9 - Hypothyroidism, unspecified (10) HTN (hypertension) Status: Chronic Qualifiers: Hypertension type: essential hypertension Qualified Code(s): I10 - Essential (primary) hypertension (11) Asthma Status: Inactive Qualifiers: Asthma persistence: unspecified Core Measure Documentation - Palliative Care Palliative Care/ Comfort Measures: Not Applicable - Core Measures Any of the following diagnoses?: none Exam - Constitutional Vitals: Temp Pulse Resp BP Pulse Ox 98.2 F 48 L 18 110/70 95 07/23/20 03:48 07/23/20 03:48 07/23/20 03:48 07/23/20 03:48 07/23/20 03:48 General appearance: Present: no acute distress, well-nourished - EENT Eyes: Present: PERRL ENT: hearing intact, clear oral mucosa - Neck Neck: Present: supple, normal ROM - Respiratory Respiratory effort: normal Respiratory: bilateral: CTA - Cardiovascular Heart Sounds: Present: S1 & S2. Absent: rub, click - Extremities Extremities: pulses symmetrical, No edema Peripheral Pulses: within normal limits - Abdominal General gastrointestinal: Present: soft, non-tender, non-distended, normal bowel sounds Female genitourinary: Present: normal - Integumentary Integumentary: Present: clear, warm, dry - Musculoskeletal Musculoskeletal: gait normal, strength equal bilaterally - Psychiatric Psychiatric: appropriate mood/affect, intact judgment & insight - Neurologic Neurologic: CNII-XII intact, moves all extremities Plan Activity: advance as tolerated Weight Bearing Status: Weight Bear as Tolerated Diet: diabetic Additional Instructions: The patient will need to be quarantined from 10 days when she first began to have symptoms per ID recommendation Follow up with: SAMMY ROBERTS [Primary Care Provider] - 3-5 Days VANE MCNEAL MD [Staff Physician] - 7 Days Prescriptions: ARIPiprazole [Abilify] 40 mg PO DAILY #30 verapamiL [Calan] 120 mg PO BID #60 Sucralfate [Carafate] 10 ml PO QAM 30 Days cloNIDine [Catapres] 0.1 mg PO QHS 30 Days Benztropine [Cogentin] 0.5 mg PO BID #60 dexAMETHasone [Decadron] 6 mg PO DAILY 5 Days tablet Fluticasone [Flonase] 1 spray NS QDAY 30 Days bottle propranoloL [Inderal] 10 mg PO BID #60 Potassium Chloride [K-Dur] 20 meq PO QDAY #30 Furosemide [Lasix TAB] 40 mg PO BID #60 Melatonin [Melatonin 5MG TAB] 5 mg PO HS #30 Omeprazole 40 mg PO QAM #30 Simvastatin 20 mg PO DAILY #30 Levothyroxine [Synthroid] 75 mcg PO QAM #30 Rivaroxaban [Xarelto] 10 mg PO QDAY #30 OLANzapine [Zyprexa] 5 mg PO QHS #30
--- NOTE | 2020-07-23 08:05 | Progress Note ---
Assessment and Plan Cultures: SARS CoV2 PCR positive Assessment: 50 years old female with history of morbid obesity, obstructive sleep apnea, irritable bowel syndrome, diabetes mellitus, CHF, hypertension, bipolar depression, schizophrenia, admitted on 07/19/2020 secondary to few days history of headaches, cough, nasal congestion, chest congestion, fatigue and shortness of breath: #COVID-19 infection: No evidence of sepsis, Inflammatory markers are all normal. D-dimer normal. #Hypoxia: Currently on 2 L currently on room air, patient passed 6-minute walking test. #Morbid obesity: Associated with worse outcomes #Diabetes mellitus: Associated with worse outcomes Recommendations: -Continue Dexamethasone 6 mg IV/PO daily for 10 days -Continue Remdesivir D3 of 5 -Monitor inflammatory markers - ferritin, Ddimer, CRP, LDH -ordered today -Monitor liver function test on Remdesivir -Continue anticoagulation per System Protocol Okay to discharge. 10 days quarantine required since the beginning of symptoms. All laboratory, cultures and imaging were reviewed. will sign off discussed with attending Indiana Mckinnon MD Infectious Diseases [employer] [facility] M [phone] O [phone] Subjective Date of service: 07/23/20 Principal diagnosis: COVID Interval history: Patient is now on room air, no fever. Exercise pulse oximeter 96% Objective - Exam Narrative Exam: Physical Exam: reviewed ED and hospitalist notes, limited due to conservation of PPE and decrease risk of transmission. General appearance: limited due to conservation of PPE Eyes: limited due to conservation of PPE HENT: Atraumatic; limited due to conservation of PPE Lungs: limited due to conservation of PPE CV: limited due to conservation of PPE Abdomen: limited due to conservation of PPE Extremities: limited due to conservation of PPE Skin: limited due to conservation of PPE Psych: limited due to conservation of PPE Neuro: limited due to conservation of PPE - Constitutional Vitals: Vital Signs Temp Pulse Resp BP Pulse Ox 98.2 F 48 L 18 110/70 95 07/23/20 03:48 07/23/20 03:48 07/23/20 03:48 07/23/20 03:48 07/23/20 03:48 Temperature -Last 24 Hours Temperature 98.2 F Temperature 98.1 F Temperature 98.3 F Temperature 97.5 F - Labs CBC & Chem 7: 07/20/20 06:04 07/20/20 06:04 Labs: Abnormal lab results 07/23/20 Range/Units 05:58 Albumin 3.7 L (3.9-5) g/dL
[2020-07-23] MEDS: RIVAROXABAN 10 MG TAB PO SCH (10:36)
[2020-07-23] MEDS: risperiDONE 1 MG TAB PO SCH (10:36)
[2020-07-23] MEDS: ESCITALOPRAM 10 MG TAB PO SCH (10:37)
[2020-07-23] MEDS: POTASSIUM CHLORIDE ER 10 MEQ TAB PO SCH (10:37)
[2020-07-23] MEDS: FAMOTIDINE 20 MG TAB PO SCH (10:37)
[2020-07-23] MEDS: hydrOXYzine HCL 25 MG TAB PO SCH (10:37)
[2020-07-23] MEDS: BENZTROPINE 0.5 MG TAB PO SCH (10:37)
[2020-07-23] MEDS: ARIPiprazole 10 MG TAB PO SCH (10:38)
[2020-07-23] MEDS: ARIPiprazole 15 MG TAB PO SCH (10:38)
[2020-07-23] MEDS: DEXAMETHASONE 4 MG TAB PO SCH (10:38)
[2020-07-23] MEDS: PROPRANOLOL 10 MG TAB PO SCH (10:49)
[2020-07-23] MEDS: FLUTICASONE PROPIONATE NASAL SPRAY 16 GM NS SCH (10:55)
[2020-07-23 10:56] VITALS: BP 143/79
== END 2020-07-23 14:28 | disposition home or self-care (01) | DRG 177 ==
LOC: ED 10:46 → 3A 16:14
PROVIDERS: ADMIT Internal Medicine; ATTEND Hospitalist
PROC: XW033E5 Introduction of Remdesivir Anti-infective into Peripheral Vein, Percutaneous Approach, New Technology Group 5 (ICD-10-PCS; principal; 2020-07-20)
DX: U07.1 COVID-19 (principal); J12.89 Other viral pneumonia; J96.01 Acute respiratory failure with hypoxia; I50.42 Chronic combined systolic (congestive) and diastolic (congestive) heart failure; F31.30 Bipolar disorder, current episode depressed, mild or moderate severity, unspecified; Z68.42 Body mass index [BMI] 45.0-49.9, adult; E11.9 Type 2 diabetes mellitus without complications; E66.01 Morbid (severe) obesity due to excess calories; G47.33 Obstructive sleep apnea (adult) (pediatric); I11.0 Hypertensive heart disease with heart failure; F20.9 Schizophrenia, unspecified; F41.1 Generalized anxiety disorder; I48.91 Unspecified atrial fibrillation; E78.5 Hyperlipidemia, unspecified; G89.29 Other chronic pain; G51.0 Bell's palsy; E03.9 Hypothyroidism, unspecified; K58.9 Irritable bowel syndrome, unspecified; J45.909 Unspecified asthma, uncomplicated; Z90.49 Acquired absence of other specified parts of digestive tract; Z86.718 Personal history of other venous thrombosis and embolism; Z79.01 Long term (current) use of anticoagulants; Z71.3 Dietary counseling and surveillance; Z79.899 Other long term (current) drug therapy; Z88.6 Allergy status to analgesic agent; Z88.8 Allergy status to other drugs, medicaments and biological substances; Z88.5 Allergy status to narcotic agent
CPT/HCPCS: 36415; 71046; 80053; 80076; 82728; 82947; 82962; 83036; 83520; 83615; 84145; 84484; 85025; 85379; 86140; 93005; 96365; G0378; J0456; J0696; J1100; J1650; J7030; J7050; J8540; U0003

== ENCOUNTER 2020-08-10 16:33 | Emergency (ER) | payer MEDICARE ==
[2020-08-10 17:27] LABS: Basophils # (Auto) 0.1 K/mm3 (0.0-0.1); Basophils % (Auto) 1.3 % (0.0-1.8); Eosinophils # (Auto) 0.2 K/mm3 (0.0-0.4); Eosinophils % (Auto) 2.9 % (0.0-4.3); Hematocrit 35.4 % (30.3-42.9); Hemoglobin 12.2 gm/dl (10.1-14.3); Lymphocytes # (Auto) 1.9 K/mm3 (1.2-5.4); Lymphocytes % (Auto) 26.4 % (13.4-35.0); Mean Corpuscular HGB Conc 34 % (30-34); Mean Corpuscular Volume 83 fl (79-97); Monocytes # (Auto) 0.4 K/mm3 (0.0-0.8); Monocytes % (Auto) 5.2 % (0.0-7.3); Platelet Count 271 K/mm3 (140-440); Red Blood Count 4.29 M/mm3 (3.65-5.03); Red Cell Distribution Width 16.1 % (13.2-15.2)
[2020-08-10 17:48] LABS: Blood Urea Nitrogen 16 mg/dL (7-17); Hemolysis Index 12
[2020-08-10 17:56] LABS: BUN/Creatinine Ratio 23
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
[2020-08-11] MEDS ORDERED: LORazepam 1 MG TAB PO ONE (08:20)
[2020-08-11 08:32] LABS: Bacteria,Urine 1+ /HPF (Negative); Bilirubin,Urine NEG (Negative); Blood,Urine NEG (Negative); Color,Urine Straw (Yellow); Mucus,Urine FEW /HPF; Protein,Urine <15 mg/dL mg/dL (Negative); Urobilinogen,Urine < 2.0 mg/dL (<2.0)
[2020-08-11 08:39] LABS: Amphetamine Screen,Urine Negative; Benzodiazepines Screen,Urine Negative; Cannabinoid Screen,Urine Negative; Cocaine Screen,Urine Negative; Methadone Screen,Urine Negative; Opiate Screen,Urine Negative
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
--- NOTE | 2020-08-12 10:25 | Progress Note ---
Subjective - Reason for Consult Consult date: 08/12/20 Reason for consult: MHE Requesting physician: SUSHILA CENTENO - Chief Complaint Chief complaint: Psych Progress Patient seen this AM in room secluded, she appears tearful patient reports she feels very depressed and unhappy and does not know why. She also reports her medications have not been given to her since she has been in hospital for 2 days and she needs them. She also request for risperidone to be started back again and endorses persistent SI. REVIEW OF SYSTEMS Constitutional: Negative for weight loss ENT: Negative for stridor Respiratory: Negative for cough or hemoptysis All other systems reviewed and are negative MENTAL STATUS EXAMINATION General Appearance and Behavior: Age appropriate, good hygiene, wearing appropriate clothes,, good eye contact Cooperation: Participating/engaged, but Guarded Psychomotor Behavior: Psychomotor normal Mood: depressed Affect and affective range: irritable, labile Thought Process: hallucinations Thought Content: hopelessness, helplessness Speech: Normal rate, volume and rythm Intellectual Functioning: Average Suicidal Ideation: SI Homicidal Ideation: Denies HI Impulse Control: Impaired Insight and Judgment: Limited insight and judgment Memory: Normal Attention: Normal Orientation: Alert, Diagnoses: Assessment and Plan - Psychiatric problem (1) Schizoaffective disorder Current Visit: No Status: Chronic Qualifiers: Schizoaffective disorder type: unspecified Qualified Code(s): F25.9 - Schizoaffective disorder, unspecified Treatment Plan Covid positive, home psych meds started, with risperidone based on pts indicated preferences. MEDICATIONS: Risks, benefits and alternatives of medications discussed with the patient, questions answered and consent obtained from patient. PSYCHOTHERAPY: Supportive psychotherapy provided MEDICAL: Per primary team DELIRIUM PRECAUTIONS: Please re-orient patient frequently, keep lights on during the day, and minimize benzodiazepines and opiates as these medications could worsen patient's confusion. 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 Case discussed with Dr. Razo who agrees with current disposition LEGAL STATUS: 1013 FOLLOW-UP: Will follow Thank you for the consult. Please contact with any questions and/or concerns. Mental Status Exam - Vital signs Last Vital Signs Temp 98.3 F 08/12/20 08:03 Pulse 72 08/12/20 08:03 Resp 20 08/12/20 08:03 BP 152/61 08/12/20 08:03 Pulse Ox 96 08/12/20 08:03 Assessment and Plan - Patient Problems (1) Schizoaffective disorder Current Visit: No Status: Chronic Qualifiers: Schizoaffective disorder type: unspecified Qualified Code(s): F25.9 - Schizoaffective disorder, unspecified
[2020-08-12] MEDS: risperiDONE 1 MG TAB PO SCH ×2 (12:42→22:16)
[2020-08-12] MEDS: ESCITALOPRAM 10 MG TAB PO SCH (12:42)
[2020-08-12] MEDS: BENZTROPINE 0.5 MG TAB PO SCH ×2 (12:42→22:16)
[2020-08-13] MEDS: LEVOTHYROXINE 75 MCG TAB PO SCH (07:02)
[2020-08-13] MEDS: ESCITALOPRAM 10 MG TAB PO SCH (10:11)
[2020-08-13] MEDS: risperiDONE 1 MG TAB PO SCH ×2 (10:11→22:15)
[2020-08-13] MEDS: BENZTROPINE 0.5 MG TAB PO SCH ×2 (10:11→22:15)
--- NOTE | 2020-08-13 11:17 | Progress Note ---
Subjective - Reason for Consult Consult date: 08/13/20 Reason for consult: MHE Requesting physician: SUSHILA CENTENO - Chief Complaint Chief complaint: Psych Progress Patient seen this AM in room secluded due to covid, pt says her mood is down, she reports her other medically related medications have not been given to her since 2-3 days now, still endorses SI. REVIEW OF SYSTEMS Constitutional: Negative for weight loss ENT: Negative for stridor Respiratory: Negative for cough or hemoptysis All other systems reviewed and are negative MENTAL STATUS EXAMINATION General Appearance and Behavior: Age appropriate, good hygiene, wearing appropriate clothes,, good eye contact Cooperation: Participating/engaged, but Guarded Psychomotor Behavior: Psychomotor normal Mood: depressed Affect and affective range: irritable, labile Thought Process: hallucinations Thought Content: hopelessness, helplessness Speech: Normal rate, volume and rythm Intellectual Functioning: Average Suicidal Ideation: SI Homicidal Ideation: Denies HI Impulse Control: Impaired Insight and Judgment: Limited insight and judgment Memory: Normal Attention: Normal Orientation: Alert, oriented Diagnoses: Assessment and Plan - Psychiatric problem (1) Schizoaffective disorder Current Visit: No Status: Chronic Qualifiers: Schizoaffective disorder type: unspecified Qualified Code(s): F25.9 - Schizoaffective disorder, unspecified Treatment Plan Communiction order placed ysday for nurse to inform ED provider to reconcile pts home medications. Covid positive, home psych meds started, with risperidone based on pts indicated preferences. MEDICATIONS: Risks, benefits and alternatives of medications discussed with the patient, questions answered and consent obtained from patient. PSYCHOTHERAPY: Supportive psychotherapy provided MEDICAL: Per primary team DELIRIUM PRECAUTIONS: Please re-orient patient frequently, keep lights on during the day, and minimize benzodiazepines and opiates as these medications could worsen patient's confusion. NEONATAL DOCTOR: DISPOSITION: Do Recommend acute inpatient psychiatric hospitalization at this time once medically cleared. Case discussed with Dr. Razo who agrees with current disposition LEGAL STATUS: 1013 FOLLOW-UP: Will follow Thank you for the consult. Please contact with any questions and/or concerns. Mental Status Exam - Vital signs Last Vital Signs Temp 97.9 F 08/13/20 08:02 Pulse 75 08/13/20 08:02 Resp 19 08/13/20 08:02 BP 187/58 08/13/20 08:02 Pulse Ox 96 08/13/20 08:02 Assessment and Plan - Patient Problems (1) Schizoaffective disorder Current Visit: No Status: Chronic Qualifiers: Schizoaffective disorder type: unspecified Qualified Code(s): F25.9 - Schizoaffective disorder, unspecified
[2020-08-13] MEDS ORDERED: IBUPROFEN 600 MG TAB PO ONE (22:18)
[2020-08-14] MEDS: LEVOTHYROXINE 75 MCG TAB PO SCH (05:56)
[2020-08-14] MEDS: risperiDONE 1 MG TAB PO SCH (10:18)
[2020-08-14] MEDS: BENZTROPINE 0.5 MG TAB PO SCH (10:18)
--- NOTE | 2020-08-14 10:35 | Progress Note ---
Subjective - Reason for Consult Consult date: 08/14/20 Reason for consult: MHE Requesting physician: SUSHILA CENTENO - Chief Complaint Chief complaint: Psych Progress Patient seen this a.m. patient reports she is doing so much better today, says her mood and sleep has improved, denies any acute suicidal thoughts or ideations, no patient complaint of not still getting medical medications. Patients complains relayed to nurse. REVIEW OF SYSTEMS Constitutional: Negative for weight loss ENT: Negative for stridor Respiratory: Negative for cough or hemoptysis All other systems reviewed and are negative MENTAL STATUS EXAMINATION General Appearance and Behavior: Age appropriate, good hygiene, wearing appropriate clothes,, good eye contact Cooperation: Participating/engaged, but Guarded Psychomotor Behavior: Psychomotor normal Mood: much better Affect and affective range: congruent with mood Thought Process: logical Thought Content: within reality Speech: Normal rate, volume and rythm Intellectual Functioning: Average Suicidal Ideation: denies Homicidal Ideation: Denies HI Impulse Control: Impaired Insight and Judgment: Limited insight and judgment Memory: Normal Attention: Normal Orientation: Alert, oriented Diagnoses: Assessment and Plan - Psychiatric problem (1) Schizoaffective disorder Current Visit: No Status: Chronic Qualifiers: Schizoaffective disorder type: unspecified Qualified Code(s): F25.9 - Schizoaffective disorder, unspecified Treatment Plan Communiction order placed ysday for nurse to inform ED provider to reconcile pts home medications. MEDICATIONS: Risks, benefits and alternatives of medications discussed with the patient, questions answered and consent obtained from patient. PSYCHOTHERAPY: Supportive psychotherapy provided MEDICAL: Per primary team DELIRIUM PRECAUTIONS: Please re-orient patient frequently, keep lights on during the day, and minimize benzodiazepines and opiates as these medications could worsen patient's confusion. AUTOMOTIVE UPHOLSTERER: DISPOSITION: Do not Recommend acute inpatient psychiatric hospitalization at this time once medically cleared. Case discussed with Dr. Razo who agrees with current disposition LEGAL STATUS: 1013 rescinded FOLLOW-UP: Will sign off Thank you for the consult. Please contact with any questions and/or concerns. Mental Status Exam - Vital signs Last Vital Signs Temp 97.8 F 08/14/20 07:57 Pulse 72 08/14/20 07:57 Resp 18 08/14/20 09:12 BP 128/106 08/14/20 07:57 Pulse Ox 96 08/14/20 07:57 Assessment and Plan - Patient Problems (1) Schizoaffective disorder Status: Chronic Qualifiers: Schizoaffective disorder type: unspecified Qualified Code(s): F25.9 - Schizoaffective disorder, unspecified
[2020-08-14] MEDS: ESCITALOPRAM 10 MG TAB PO SCH (12:22)
[2020-08-14 14:47] VITALS: BP 140/71
== END 2020-08-14 15:23 | disposition home or self-care (01) ==
LOC: EEVIPCON 16:33 → ED 16:33
DX: R45.851 Suicidal ideations (principal); F20.9 Schizophrenia, unspecified; Z20.828 Contact with and (suspected) exposure to other viral communicable diseases; I11.0 Hypertensive heart disease with heart failure; I50.9 Heart failure, unspecified; E11.9 Type 2 diabetes mellitus without complications; J45.909 Unspecified asthma, uncomplicated; F31.9 Bipolar disorder, unspecified; Z98.890 Other specified postprocedural states; Z79.899 Other long term (current) drug therapy; Z88.8 Allergy status to other drugs, medicaments and biological substances
CPT/HCPCS: 36415; 80048; 80307; 81001; 85025; 99285; U0003; 80320; G0480

== ENCOUNTER 2020-08-29 14:41 | Observation (INO) | payer MEDICARE ==
--- NOTE | 2020-08-29 16:15 | Event Note ---
ED Screening Note Date of service: 08/29/20 Time: 16:08 ED Screening Note: 50-year-old female presents to the emergency room concern for the dizziness. Patient states that she did hit her head on the refrigerator yesterday pretty hard. Denies any vomiting but suffers from chronic nausea. She does have a past medical history of CHF, hypertension diabetes, bipolar, distant press schizophrenic affective disorder. Anxiety. Chronic back pain. Denies any pain at this time. Reports she feels like the room is spinning. Recently change of her psychiatric medications. States that she discontinued Abilify and started Risperdal twice a day. Reports that her legs felt like it is heavy. Patient does have a weak intelligence applications on her left side as well as weakness to her left leg. This initial assessment/diagnostic orders/clinical plan/treatment(s) is/are subject to change based on patients health status, clinical progression and re-assessment by fellow clinical providers in the ED. Further treatment and workup at subsequent clinical providers discretion. Patient/guardian urged not to elope from the ED as their condition may be serious if not clinically assessed and managed. Initial orders include: bs 83
[2020-08-29 16:44] LABS: Basophils # (Auto) 0.1 K/mm3 (0.0-0.1); Basophils % (Auto) 0.8 % (0.0-1.8); Eosinophils # (Auto) 0.1 K/mm3 (0.0-0.4); Eosinophils % (Auto) 1.7 % (0.0-4.3); Hematocrit 38.1 % (30.3-42.9); Hemoglobin 12.3 gm/dl (10.1-14.3); Lymphocytes # (Auto) 1.7 K/mm3 (1.2-5.4); Lymphocytes % (Auto) 24.4 % (13.4-35.0); Mean Corpuscular HGB Conc 32 % (30-34); Mean Corpuscular Volume 85 fl (79-97); Monocytes # (Auto) 0.4 K/mm3 (0.0-0.8); Monocytes % (Auto) 6.5 % (0.0-7.3); Platelet Count 249 K/mm3 (140-440); Red Blood Count 4.49 M/mm3 (3.65-5.03)
[2020-08-29 16:57] LABS: INR 1.26 (0.87-1.13)
[2020-08-29 17:05] LABS: Alanine Aminotransferase 22 units/L (7-56); Albumin 4.2 g/dL (3.9-5); Blood Urea Nitrogen 10 mg/dL (7-17); Hemolysis Index 9
[2020-08-29 17:08] LABS: BUN/Creatinine Ratio 14
--- NOTE | 2020-08-29 17:52 | Cat Scan Report ---
CT head/brain wo con INDICATION / CLINICAL INFORMATION: 50 years Female; Dizziness with new left-sided weakness. TECHNIQUE: Routine CT head without contrast. All CT scans at this location are performed using CT dos e reduction for ALARA by means of automated exposure control. COMPARISON: The study is compared to the previous CT of 04/27/2020. FINDINGS: BRAIN / INTRACRANIAL CONTENTS: The brain appears to demonstrate appropriate attenuation. The ventricu lar system appears unchanged from the previous CT. There is no clear evidence of acute intracranial h emorrhage or significant mass effect. ORBITS: No significant abnormality of visualized orbits. SINUSES / MASTOIDS: No significant abnormality in the visualized paranasal sinuses or mastoid air altagracia ls. CRANIOCERVICAL JUNCTION: No significant abnormality. ADDITIONAL FINDINGS: None. IMPRESSION: 1. There is no CT evidence of acute intracranial process. Signer Name: Jose Luis Ortega MD Signed: 08/29/2020 5:48 PM Workstation Name: [id number]
--- NOTE | 2020-08-30 00:34 | Emergency Department Report ---
ED Chest Pain HPI - General Chief Complaint: Chest Pain Stated Complaint: CHEST PAINS DIZZINESS PUI?: No Time Seen by Provider: 08/30/20 00:31 Source: patient Mode of arrival: Ambulatory Limitations: No Limitations - History of Present Illness Initial Comments: Patient is a 50-year-old female that presents emergency room with complaints of chest pain and dizziness. Patient states the chest pain has improved with rest. Patient states the dizziness is worse with exertion and movement. Patient states her dizziness is better with rest. Patient states her chest pain is better with rest and worse with exertion. Patient denies shortness of breath. Patient states that her dizziness and chest pain started this morning. Patient states her symptoms are worsening. Patient states they are becoming more frequent. Patient states that she had COVID-19 approximately a month ago. Patient states she is still fatigued from it. MD Complaint: chest pain -: Sudden Onset: during rest Pain Location: substernal, left chest Severity scale (0 -10): 4 Quality: sharp Consistency: intermittent Improves With: rest Worsens With: exertion re: denies: nausea, vomting, diaphoresis, dyspnea, sense of impending doom Other Symptoms: denies: cough, fever, syncope, rash, acid taste in mouth, leg swelling, palpitations, burping Treatments Prior to Arrival: aspirin Aspirin use within the Past 7 Days: (0) No - Related Data On Oral Contraceptives: No Home Medications Medication Instructions Recorded Confirmed Last Taken Ipratropium Mineral 15 ml NS TID 07/20/20 08/12/20 Unknown Previous Rx's Medication Instructions Recorded Last Taken Type ARIPiprazole [Abilify TAB] 10 mg PO QDAY tablet 07/23/20 Unknown Rx ARIPiprazole [Abilify TAB] 30 mg PO QDAY tablet 07/23/20 Unknown Rx ARIPiprazole [Abilify] 40 mg PO DAILY #30 07/23/20 Unknown Rx Doxepin [SINEquan] 25 mg PO QHS capsule 07/23/20 Unknown Rx Famotidine [Pepcid] 20 mg PO BID tablet 07/23/20 Unknown Rx Fluticasone [Flonase] 1 spray NS QDAY 30 Days bottle 07/23/20 Unknown Rx Furosemide [Lasix TAB] 40 mg PO BID #60 07/23/20 Unknown Rx Melatonin [Melatonin 5MG TAB] 5 mg PO HS #30 07/23/20 Unknown Rx OLANzapine [ZyPREXA] 5 mg PO QHS tablet 07/23/20 Unknown Rx OLANzapine [Zyprexa] 5 mg PO QHS #30 07/23/20 Unknown Rx Omeprazole 40 mg PO QAM #30 07/23/20 Unknown Rx Potassium Chloride [K-Dur] 20 meq PO QDAY #30 07/23/20 Unknown Rx Rivaroxaban [Xarelto] 10 mg PO QDAY #30 07/23/20 Unknown Rx Simvastatin 20 mg PO DAILY #30 07/23/20 Unknown Rx Sucralfate [Carafate] 10 ml PO QAM 30 Days 07/23/20 Unknown Rx cloNIDine [Catapres] 0.1 mg PO QHS tablet 07/23/20 Unknown Rx cloNIDine [Catapres] 0.1 mg PO QHS 30 Days 07/23/20 Unknown Rx clonazePAM [KlonoPIN] 0.5 mg PO BID PRN tablet 07/23/20 Unknown Rx dexAMETHasone [Decadron] 6 mg PO DAILY 5 Days tablet 07/23/20 Unknown Rx propranoloL [Inderal] 10 mg PO BID #60 07/23/20 Unknown Rx verapamiL [Calan] 120 mg PO BID #60 07/23/20 Unknown Rx Benztropine [Cogentin] 0.5 mg PO BID #60 08/14/20 Unknown Rx Escitalopram [Lexapro] 10 mg PO QDAY #30 tablet 08/14/20 Unknown Rx Levothyroxine [Synthroid] 75 mcg PO QAM #30 08/14/20 Unknown Rx risperiDONE [RisperDAL] 1 mg PO BID #60 tablet 08/14/20 Unknown Rx Allergies Allergy/AdvReac Type Severity Reaction Status Date / Time acetaminophen [From Lortab] Allergy Shortness Verified 08/29/20 14:56 of Breath aspirin Allergy Hives Verified 08/29/20 14:56 divalproex sodium Allergy Rash Verified 08/29/20 14:56 [From Depakote] hydrocodone [From Lortab] Allergy Hives Verified 08/29/20 14:56 latex Allergy Rash Verified 08/29/20 14:56 nut - unspecified Allergy Shortness Verified 08/29/20 14:56 of Breath oxycodone Allergy Hives Verified 08/29/20 14:56 Penicillins Allergy Rash Verified 08/29/20 14:56 propoxyphene Allergy Rash Verified 08/29/20 14:56 [From Darvocet-N] Sulfa (Sulfonamide Allergy Rash Verified 08/29/20 14:56 Antibiotics) dairy Allergy Diarrhea Uncoded 02/12/19 14:15 napsylate Allergy Hives Uncoded 02/12/19 14:14 Heart Score - HEART Score History: Moderately suspicious EKG: Non-specific Age: 45-65 Risk factors: > 3 risk factors or hx of atherosclerotic disease Troponin: < normal limit HEART Score: 5 ED Review of Systems ROS: Stated complaint: CHEST PAINS DIZZINESS Other details as noted in HPI Constitutional: malaise. denies: chills, fever Eyes: denies: eye pain, eye discharge, vision change ENT: denies: ear pain, throat pain Respiratory: denies: cough, shortness of breath, wheezing Cardiovascular: chest pain. denies: palpitations Endocrine: no symptoms reported Gastrointestinal: denies: abdominal pain, nausea, diarrhea Genitourinary: denies: urgency, dysuria, discharge Musculoskeletal: denies: back pain, joint swelling, arthralgia Skin: denies: rash, lesions Neurological: as per HPI. denies: headache, weakness, paresthesias Psychiatric: denies: anxiety, depression Hematological/Lymphatic: denies: easy bleeding, easy bruising ED Past Medical Hx - Past Medical History Previous Medical History?: Yes Hx Hypertension: Yes Hx Congestive Heart Failure: Yes Hx Diabetes: Yes Hx Deep Vein Thrombosis: Yes Hx Psychiatric Treatment: Yes (Bipolar Depressed schizo affective, anxiety) Hx Asthma: Yes Additional medical history: Hypothyroidism, sleep apnea, DVT, Chronic Back pain, Gastritis, IBS. Hyperlipidemia, Ovarian cyst. Stubbs's palsey - Surgical History Past Surgical History?: Yes Hx Cholecystectomy: Yes Additional Surgical History: Tonsilectomy, Uterine Ablation, Hernia repair, D&C. 2 molar pulled. stiched to nasal cavity. Right Rotator cuff repair. - Family History Family history: no significant - Social History Smoking Status: Never Smoker Substance Use Type: None - Medications Home Medications: Home Medications Medication Instructions Recorded Confirmed Last Taken Type Ipratropium Mineral 15 ml NS TID 07/20/20 08/12/20 Unknown History ARIPiprazole [Abilify TAB] 10 mg PO QDAY tablet 07/23/20 08/12/20 Unknown Rx ARIPiprazole [Abilify TAB] 30 mg PO QDAY tablet 07/23/20 08/12/20 Unknown Rx ARIPiprazole [Abilify] 40 mg PO DAILY #30 07/23/20 08/12/20 Unknown Rx Doxepin [SINEquan] 25 mg PO QHS capsule 07/23/20 08/12/20 Unknown Rx Famotidine [Pepcid] 20 mg PO BID tablet 07/23/20 08/12/20 Unknown Rx Fluticasone [Flonase] 1 spray NS QDAY 30 Days bottle 07/23/20 08/12/20 Unknown Rx Furosemide [Lasix TAB] 40 mg PO BID #60 07/23/20 08/12/20 Unknown Rx Melatonin [Melatonin 5MG TAB] 5 mg PO HS #30 07/23/20 08/12/20 Unknown Rx OLANzapine [ZyPREXA] 5 mg PO QHS tablet 07/23/20 08/12/20 Unknown Rx OLANzapine [Zyprexa] 5 mg PO QHS #30 07/23/20 08/12/20 Unknown Rx Omeprazole 40 mg PO QAM #30 07/23/20 08/12/20 Unknown Rx Potassium Chloride [K-Dur] 20 meq PO QDAY #30 07/23/20 08/12/20 Unknown Rx Rivaroxaban [Xarelto] 10 mg PO QDAY #30 07/23/20 08/12/20 Unknown Rx Simvastatin 20 mg PO DAILY #30 07/23/20 08/12/20 Unknown Rx Sucralfate [Carafate] 10 ml PO QAM 30 Days 07/23/20 08/12/20 Unknown Rx cloNIDine [Catapres] 0.1 mg PO QHS tablet 07/23/20 08/12/20 Unknown Rx cloNIDine [Catapres] 0.1 mg PO QHS 30 Days 07/23/20 08/12/20 Unknown Rx clonazePAM [KlonoPIN] 0.5 mg PO BID PRN tablet 07/23/20 08/12/20 Unknown Rx dexAMETHasone [Decadron] 6 mg PO DAILY 5 Days tablet 07/23/20 08/12/20 Unknown Rx propranoloL [Inderal] 10 mg PO BID #60 07/23/20 08/12/20 Unknown Rx verapamiL [Calan] 120 mg PO BID #60 07/23/20 08/12/20 Unknown Rx Benztropine [Cogentin] 0.5 mg PO BID #60 08/14/20 Unknown Rx Escitalopram [Lexapro] 10 mg PO QDAY #30 tablet 08/14/20 Unknown Rx Levothyroxine [Synthroid] 75 mcg PO QAM #30 08/14/20 Unknown Rx risperiDONE [RisperDAL] 1 mg PO BID #60 tablet 08/14/20 Unknown Rx ED Physical Exam - General Limitations: No Limitations General appearance: alert, in no apparent distress - Head Head exam: Present: atraumatic, normocephalic - Eye Eye exam: Present: normal appearance - ENT ENT exam: Present: mucous membranes moist - Neck Neck exam: Present: normal inspection - Respiratory Respiratory exam: Present: normal lung sounds bilaterally. Absent: respiratory distress - Cardiovascular Cardiovascular Exam: Present: regular rate, normal rhythm. Absent: systolic murmur, diastolic murmur, rubs, gallop - GI/Abdominal GI/Abdominal exam: Present: soft, normal bowel sounds - Extremities Exam Extremities exam: Present: normal inspection - Back Exam Back exam: Present: normal inspection - Neurological Exam Neurological exam: Present: alert, oriented X3 - Psychiatric Psychiatric exam: Present: normal affect, normal mood - Skin Skin exam: Present: warm, dry, intact, normal color. Absent: rash ED Course Vital Signs 08/29/20 08/29/20 08/30/20 14:59 15:03 00:44 Pulse Rate 63 61 63 Respiratory 18 9 L Rate Blood Pressure 119/69 Blood Pressure [Left] O2 Sat by Pulse 100 92 Oximetry 08/30/20 08/30/20 08/30/20 00:45 00:56 00:58 Pulse Rate 57 L 66 Respiratory 14 12 14 Rate Blood Pressure 146/74 Blood Pressure 146/74 [Left] O2 Sat by Pulse 98 99 Oximetry - Reevaluation(s) Reevaluation #1: I discussed all results with patient. I discussed plan of care with patient. Patient agrees with plan of care and admission. Patient to be admitted to the hospitalist service. 08/30/20 01:40 - Consultations Consultation #1: Hospitalist consulted for admission. Hospitalist to admit patient. 08/30/20 01:40 MARU score - Maru Score Age > 65: (0) No Aspirin use within the Past 7 Days: (1) Yes 3 or more CAD Risk Factors: (1) Yes 2 or more Angina events in past 24 hrs: (1) Yes Known CAD with more than 50% Stenosis: (0) No Elevated Cardiac Markers: (0) No ST Deviation Greater than 0.5mm: (0) No MARU Score: 3 ED Medical Decision Making - Lab Data Result diagrams: 08/29/20 16:19 08/29/20 16:19 - EKG Data -: EKG Interpreted by Me EKG shows normal: sinus rhythm, axis, intervals, QRS complexes, ST-T waves Rate: normal - Radiology Data Radiology results: report reviewed, image reviewed interpreted by me: Chest x-ray: No pneumonia, no pneumothorax, no foreign body, no osseous findings, no acute findings CHEST 1 VIEW 0033 INDICATION / CLINICAL INFORMATION: CP COMPARISON: 07/19/2020 FINDINGS: SUPPORT DEVICES: None HEART / MEDIASTINUM: No significant abnormality. LUNGS / PLEURA: No significant pulmonary or pleural abnormality. No pneumothorax. ADDITIONAL FINDINGS: No significant additional findings. IMPRESSION: No significant acute abnormality CT head/brain wo con INDICATION / CLINICAL INFORMATION: 50 years Female; Dizziness with new left-sided weakness. TECHNIQUE: Routine CT head without contrast. All CT scans at this location are performed using CT dose reduction for ALARA by means of automated exposure control. COMPARISON: The study is compared to the previous CT of 04/27/2020. FINDINGS: BRAIN / INTRACRANIAL CONTENTS: The brain appears to demonstrate appropriate attenuation. The ventricular system appears unchanged from the previous CT. There is no clear evidence of acute intracranial hemorrhage or significant mass effect. ORBITS: No significant abnormality of visualized orbits. SINUSES / MASTOIDS: No significant abnormality in the visualized paranasal sinuses or mastoid air cells. CRANIOCERVICAL JUNCTION: No significant abnormality. ADDITIONAL FINDINGS: None. IMPRESSION: 1. There is no CT evidence of acute intracranial process. - Medical Decision Making Patient is a 50-year-old female that presents emergency room with complaints of chest pain and dizziness and fatigue. Patient had Covid a month ago. Patient states her fatigue has worsened since she has had for Covid. Patient states her dizziness and chest pain started this morning. Patient states they are worsening. Patient's has a past medical history of CHF diabetes, hypertension. Patient has significant cardiovascular risk factors and comorbidities. Patient's heart score is 5. Patient's MARU score documented. Patient had labs done which were essentially markable. Patient had CT for dizziness and was negative for acute finding. Patient had a chest x-ray which was negative for acute findings. Patient's EKG shows no STEMI. Patient will require inpatient rule out of ACS. Patient admitted to the hospital service for further evaluation treatment and observation. - Differential Diagnosis Chest pain, ACS, CHF, dizziness, post Covid Critical care attestation.: If time is entered above; I have spent that time in minutes in the direct care of this critically ill patient, excluding procedure time. ED Disposition Clinical Impression: Dizziness Chest pain Qualifiers: Chest pain type: unspecified Qualified Code(s): R07.9 - Chest pain, unspecified Fatigue Qualifiers: Fatigue type: unspecified Qualified Code(s): R53.83 - Other fatigue Disposition: -09 OP ADMIT IP TO THIS HOSP Is pt being admited?: Yes Does the pt Need Aspirin: No Condition: Critical Instructions: Chest Pain (ED) Time of Disposition: 01:35
--- NOTE | 2020-08-30 01:31 | XRay Report ---
CHEST 1 VIEW 0033 INDICATION / CLINICAL INFORMATION: CP COMPARISON: 07/19/2020 FINDINGS: SUPPORT DEVICES: None HEART / MEDIASTINUM: No significant abnormality. LUNGS / PLEURA: No significant pulmonary or pleural abnormality. No pneumothorax. ADDITIONAL FINDINGS: No significant additional findings. IMPRESSION: No significant acute abnormality Signer Name: Yrn Collins MD Signed: 08/30/2020 1:26 AM Workstation Name: [id number]
[2020-08-30] MEDS ORDERED: ACETAMINOPHEN 325 MG TAB PO PRN (01:53)
[2020-08-30] MEDS ORDERED: CLOPIDOGREL 75 MG TAB PO ONE (01:57)
--- NOTE | 2020-08-30 02:04 | History and Physical Report ---
History of Present Illness Date of examination: 08/30/20 Chief complaint: Chest pain Dizziness History of present illness: 50-year-old female with history of CHF, hypertension diabetes, bipolar, distant press schizophrenic affective disorder, Anxiety, Chronic back pain was brought to the emergency room for dizziness and chest pain. Chest pain was 3/10 since this morning. Patient is now chest pain-free. Patient states that she did hit her head on the refrigerator yesterday pretty hard. Denies any vomiting but suffers from chronic nausea. Denies any pain at this time. she feels like the room is spinning. Recently change of her psychiatric medications. States that she discontinued Abilify and started Risperdal twice a day. Reports that her legs felt like it is heavy. Past History Past Medical History: heart failure, hypertension Medications and Allergies Allergies Allergy/AdvReac Type Severity Reaction Status Date / Time acetaminophen [From Lortab] Allergy Shortness Verified 08/29/20 14:56 of Breath aspirin Allergy Hives Verified 08/29/20 14:56 divalproex sodium Allergy Rash Verified 08/29/20 14:56 [From Depakote] hydrocodone [From Lortab] Allergy Hives Verified 08/29/20 14:56 latex Allergy Rash Verified 08/29/20 14:56 nut - unspecified Allergy Shortness Verified 08/29/20 14:56 of Breath oxycodone Allergy Hives Verified 08/29/20 14:56 Penicillins Allergy Rash Verified 08/29/20 14:56 propoxyphene Allergy Rash Verified 08/29/20 14:56 [From Darvocet-N] Sulfa (Sulfonamide Allergy Rash Verified 08/29/20 14:56 Antibiotics) dairy Allergy Diarrhea Uncoded 02/12/19 14:15 napsylate Allergy Hives Uncoded 02/12/19 14:14 Home Medications Medication Instructions Recorded Confirmed Last Taken Type Ipratropium [place] 15 ml NS TID 07/20/20 08/12/20 Unknown History ARIPiprazole [Abilify TAB] 10 mg PO QDAY tablet 07/23/20 08/12/20 Unknown Rx ARIPiprazole [Abilify TAB] 30 mg PO QDAY tablet 07/23/20 08/12/20 Unknown Rx ARIPiprazole [Abilify] 40 mg PO DAILY #30 07/23/20 08/12/20 Unknown Rx Doxepin [SINEquan] 25 mg PO QHS capsule 07/23/20 08/12/20 Unknown Rx Famotidine [Pepcid] 20 mg PO BID tablet 07/23/20 08/12/20 Unknown Rx Fluticasone [Flonase] 1 spray NS QDAY 30 Days bottle 07/23/20 08/12/20 Unknown Rx Furosemide [Lasix TAB] 40 mg PO BID #60 07/23/20 08/12/20 Unknown Rx Melatonin [Melatonin 5MG TAB] 5 mg PO HS #30 07/23/20 08/12/20 Unknown Rx OLANzapine [ZyPREXA] 5 mg PO QHS tablet 07/23/20 08/12/20 Unknown Rx OLANzapine [Zyprexa] 5 mg PO QHS #30 07/23/20 08/12/20 Unknown Rx Omeprazole 40 mg PO QAM #30 07/23/20 08/12/20 Unknown Rx Potassium Chloride [K-Dur] 20 meq PO QDAY #30 07/23/20 08/12/20 Unknown Rx Rivaroxaban [Xarelto] 10 mg PO QDAY #30 07/23/20 08/12/20 Unknown Rx Simvastatin 20 mg PO DAILY #30 07/23/20 08/12/20 Unknown Rx Sucralfate [Carafate] 10 ml PO QAM 30 Days 07/23/20 08/12/20 Unknown Rx cloNIDine [Catapres] 0.1 mg PO QHS tablet 07/23/20 08/12/20 Unknown Rx cloNIDine [Catapres] 0.1 mg PO QHS 30 Days 07/23/20 08/12/20 Unknown Rx clonazePAM [KlonoPIN] 0.5 mg PO BID PRN tablet 07/23/20 08/12/20 Unknown Rx dexAMETHasone [Decadron] 6 mg PO DAILY 5 Days tablet 07/23/20 08/12/20 Unknown Rx propranoloL [Inderal] 10 mg PO BID #60 07/23/20 08/12/20 Unknown Rx verapamiL [Calan] 120 mg PO BID #60 07/23/20 08/12/20 Unknown Rx Benztropine [Cogentin] 0.5 mg PO BID #60 08/14/20 Unknown Rx Escitalopram [Lexapro] 10 mg PO QDAY #30 tablet 08/14/20 Unknown Rx Levothyroxine [Synthroid] 75 mcg PO QAM #30 08/14/20 Unknown Rx risperiDONE [RisperDAL] 1 mg PO BID #60 tablet 08/14/20 Unknown Rx Active Meds: Active Medications Acetaminophen (Acetaminophen 325 Mg Tab) 650 mg PO Q6H PRN PRN Reason: Pain, Mild (1-3) Aripiprazole (Aripiprazole 10 Mg Tab) 10 mg PO QDAY [place] Aripiprazole (Aripiprazole 15 Mg Tab) 30 mg PO QDAY [place] Atorvastatin Calcium (Atorvastatin 40 Mg Tab) 40 mg PO QHS [place] Benztropine Mesylate (Benztropine 0.5 Mg Tab) 0.5 mg PO BID [place] Clonazepam (Clonazepam 0.5 Mg Tab) 0.5 mg PO BID PRN PRN Reason: Anxiety Clonidine HCl (Clonidine 0.1 Mg Tab) 0.1 mg PO QHS [place] Clopidogrel Bisulfate (Clopidogrel 75 Mg Tab) 75 mg PO ONCE ONE Stop: 08/30/20 01:58 Dexamethasone (Dexamethasone 4 Mg Tab) 6 mg PO DAILY [place] Doxepin HCl (Doxepin 25 Mg Cap) 25 mg PO QHS [place] Escitalopram Oxalate (Escitalopram 10 Mg Tab) 10 mg PO QDAY [place] Famotidine (Famotidine 20 Mg Tab) 20 mg PO BID [place] Fluticasone Propionate (Fluticasone Propionate Nasal [place] 16 Gm) 50 mcg NS QDAY [place] Furosemide (Furosemide 40 Mg Tab) 40 mg PO BID [place] Ipratropium [place] (Ipratropium 0.06% 15 Ml Nasal [place]) spray NS TID [place] Sodium Chloride (Sodium Chloride 0.9% 10 Ml Flush Syringe) 10 ml IV PRN PRN PRN Reason: LINE FLUSH Review of Systems Constitutional: fatigue, weakness Cardiovascular: lightheadedness, leg edema Neurological: weakness Exam - Constitutional Vitals: Temp Pulse Resp BP Pulse Ox 66 14 146/74 99 08/30/20 00:58 08/30/20 00:58 08/30/20 00:58 08/30/20 00:58 General appearance: Present: no acute distress - EENT Eyes: Present: PERRL ENT: hearing intact, clear oral mucosa - Neck Neck: Present: supple, normal ROM - Respiratory Respiratory effort: normal Respiratory: bilateral: diminished - Cardiovascular Heart Sounds: Present: S1 & S2. Absent: rub, click - Extremities Extremities: pulses symmetrical Extremity abnormal: edema Peripheral Pulses: within normal limits - Abdominal General gastrointestinal: Present: soft, non-tender, non-distended, normal bowel sounds Female genitourinary: Present: normal - Integumentary Integumentary: Present: clear, warm, dry - Musculoskeletal Musculoskeletal: gait normal, strength equal bilaterally - Psychiatric Psychiatric: appropriate mood/affect, intact judgment & insight - Neurologic Neurologic: CNII-XII intact, moves all extremities HEART Score - HEART Score EKG: Non-specific Age: 45-65 Risk factors: > 3 risk factors or hx of atherosclerotic disease Troponin: Troponin T < 0.010 ng/mL (0.00-0.029) 08/29/20 22:58 Troponin: < normal limit Results - Labs CBC & Chem 7: 08/29/20 16:19 08/29/20 16:19 Labs: Laboratory Last Values WBC 6.9 K/mm3 (4.5-11.0) 08/29/20 16:19 RBC 4.49 M/mm3 (3.65-5.03) 08/29/20 16:19 Hgb 12.3 gm/dl (10.1-14.3) 08/29/20 16:19 Hct 38.1 % (30.3-42.9) 08/29/20 16:19 MCV 85 fl (79-97) 08/29/20 16:19 MCH 27 pg (28-32) L 08/29/20 16:19 MCHC 32 % (30-34) 08/29/20 16:19 RDW 16.0 % (13.2-15.2) H 08/29/20 16:19 Plt Count 249 K/mm3 (140-440) 08/29/20 16:19 Lymph % (Auto) 24.4 % (13.4-35.0) 08/29/20 16:19 [place]mullen % (Auto) 6.5 % (0.0-7.3) 08/29/20 16:19 Eos % (Auto) 1.7 % (0.0-4.3) 08/29/20 16:19 Baso % (Auto) 0.8 % (0.0-1.8) 08/29/20 16:19 Lymph # (Auto) 1.7 K/mm3 (1.2-5.4) 08/29/20 16:19 [place]mullen # (Auto) 0.4 K/mm3 (0.0-0.8) 08/29/20 16:19 Eos # (Auto) 0.1 K/mm3 (0.0-0.4) 08/29/20 16:19 Baso # (Auto) 0.1 K/mm3 (0.0-0.1) 08/29/20 16:19 Seg Neutrophils % 66.6 % (40.0-70.0) 08/29/20 16:19 Seg Neutrophils # 4.6 K/mm3 (1.8-7.7) 08/29/20 16:19 PT 15.6 Sec. (12.2-14.9) H 08/29/20 16:19 INR 1.26 (0.87-1.13) H 08/29/20 16:19 APTT 40.0 Sec. (24.2-36.6) H 08/29/20 16:19 Sodium 141 mmol/L (137-145) 08/29/20 16:19 Potassium 4.9 mmol/L (3.6-5.0) 08/29/20 16:19 Chloride 104.4 mmol/L (98-107) 08/29/20 16:19 Carbon Dioxide 29 mmol/L (22-30) 08/29/20 16:19 Anion Gap 13 mmol/L 08/29/20 16:19 BUN 10 mg/dL (7-17) 08/29/20 16:19 Creatinine 0.7 mg/dL (0.6-1.2) 08/29/20 16:19 Estimated GFR > 60 ml/min 08/29/20 16:19 BUN/Creatinine Ratio 14 % 08/29/20 16:19 Glucose 90 mg/dL (65-100) 08/29/20 16:19 POC Glucose 83 mg/dL (70-105) 08/29/20 16:12 Calcium 9.0 mg/dL (8.4-10.2) 08/29/20 16:19 Total Bilirubin 0.20 mg/dL (0.1-1.2) 08/29/20 16:19 AST 22 units/L (5-40) 08/29/20 16:19 ALT 22 units/L (7-56) 08/29/20 16:19 Alkaline Phosphatase 88 units/L (35-129) 08/29/20 16:19 Troponin T < 0.010 ng/mL (0.00-0.029) 08/29/20 22:58 Total Protein 6.6 g/dL (6.3-8.2) 08/29/20 16:19 Albumin 4.2 g/dL (3.9-5) 08/29/20 16:19 Albumin/Globulin Ratio 1.8 % 08/29/20 16:19 - Imaging and Cardiology Chest x-ray: image reviewed CT Scan - head: image reviewed Assessment and Plan - Patient Problems (1) Chest pain Current Visit: Yes Status: Acute Qualifiers: Chest pain type: unspecified Qualified Code(s): R07.9 - Chest pain, unspecified Plan to address problem: Admit the patient to the cardiac telemetry. Plavix 75 mg p.o. daily. Lipitor 40 mg p.o. daily. We will do the serial cardiac enzyme. Echocardiogram. We will also do a Lexiscan. If needed please consult cardiology in the morning. Recheck CBC BMP in the morning (2) Dizziness Current Visit: Yes Status: Acute Plan to address problem: Meclizine 25 mg p.o. every 8 hours as needed. We also do echocardiogram. We will monitor the blood pressure closely. We will continue the Abilify.
[2020-08-30] MEDS ORDERED: MECLIZINE 25 MG TAB PO PRN (02:07)
[2020-08-30 02:36] LABS: Basophils % (Auto) 0.6 % (0.0-1.8); Eosinophils # (Auto) 0.2 K/mm3 (0.0-0.4); Eosinophils % (Auto) 2.1 % (0.0-4.3); Hematocrit 36.7 % (30.3-42.9); Lymphocytes # (Auto) 2.2 K/mm3 (1.2-5.4); Lymphocytes % (Auto) 30.1 % (13.4-35.0); Mean Corpuscular HGB Conc 33 % (30-34); Mean Corpuscular Volume 84 fl (79-97); Monocytes # (Auto) 0.4 K/mm3 (0.0-0.8); Monocytes % (Auto) 5.8 % (0.0-7.3); Platelet Count 230 K/mm3 (140-440); Red Blood Count 4.39 M/mm3 (3.65-5.03); Red Cell Distribution Width 15.9 % (13.2-15.2)
[2020-08-30 02:51] LABS: BUN/Creatinine Ratio 14; Blood Urea Nitrogen 11 mg/dL (7-17); Hemolysis Index 3
[2020-08-30] MEDS: HEPARIN 5,000 UNIT/1 ML VIAL SUB-Q SCH ×3 (05:11→21:45)
[2020-08-30] MEDS: ONDANSETRON 4 MG/2 ML INJ IV PRN ×2 (05:11→18:06)
[2020-08-30] MEDS ORDERED: ARIPiprazole 15 MG TAB PO SCH (10:00)
[2020-08-30] MEDS ORDERED: ARIPiprazole 10 MG TAB PO SCH (10:00)
[2020-08-30] MEDS: DEXAMETHASONE 4 MG TAB PO SCH (11:10)
[2020-08-30] MEDS: ESCITALOPRAM 10 MG TAB PO SCH (11:10)
[2020-08-30] MEDS: FUROSEMIDE 40 MG TAB PO SCH ×2 (11:10→21:45)
[2020-08-30] MEDS: BENZTROPINE 0.5 MG TAB PO SCH ×2 (11:10→21:45)
[2020-08-30] MEDS: FAMOTIDINE 20 MG TAB PO SCH ×2 (11:11→21:45)
[2020-08-30] MEDS: FLUTICASONE PROPIONATE NASAL SPRAY 16 GM NS SCH (11:11)
[2020-08-30] MEDS: IPRATROPIUM 0.06% NS SCH ×3 (11:41→21:46)
[2020-08-30] MEDS: clonazePAM 0.5 MG TAB PO PRN (18:06)
[2020-08-30] MEDS: DOXEPIN 25 MG CAP PO SCH (21:45)
[2020-08-30] MEDS: cloNIDine 0.1 MG TAB PO SCH (21:45)
[2020-08-31] MEDS: HEPARIN 5,000 UNIT/1 ML VIAL SUB-Q SCH ×3 (05:55→21:43)
[2020-08-31] MEDS ORDERED: MAGNESIUM HYDROXIDE (MOM) ORAL LIQD UDC PO PRN (06:08)
[2020-08-31] MEDS: IPRATROPIUM 0.06% NS SCH ×2 (08:24→14:24)
--- NOTE | 2020-08-31 10:30 | Consultation ---
History of Present Illness Consult date: 08/31/20 Requesting physician: DM CONDE Consult reason: chest pain History of present illness: Patient is a 50-year-old who presented to the hospital with chest pain. Patient has been in and out of the hospital in recent months. Early July she was diagnosed with Covid underwent treatment for it and discharged home. Later on she had relapses for schizophrenia and had to be admitted to the hospital under observation. He presented to the hospital with sudden onset of dizziness. She also reported that she felt like a sharp pain in her chest. No particular aggravating factors no particular relieving factors. Pain sharp lasted few seconds. She had a few such episodes. By the time she came into the emergency room it had resolved. Currently she reports she is not having any problems. She reports she has a prior history of congestive heart failure and sees a expansion joint finisher in [place]. Remote left heart cath was negative. Stress test done December 2018 was also unremarkable. Currently her cardiac enzymes are unremarkable. EKG is unremarkable. Past History Past Medical History: heart failure, hypertension Social history: no significant social history Family history: no significant family history Medications and Allergies Allergies Allergy/AdvReac Type Severity Reaction Status Date / Time acetaminophen [From Lortab] Allergy Shortness Verified 08/29/20 14:56 of Breath aspirin Allergy Hives Verified 08/29/20 14:56 divalproex sodium Allergy Rash Verified 08/29/20 14:56 [From Depakote] hydrocodone [From Lortab] Allergy Hives Verified 08/29/20 14:56 latex Allergy Rash Verified 08/29/20 14:56 nut - unspecified Allergy Shortness Verified 08/29/20 14:56 of Breath oxycodone Allergy Hives Verified 08/29/20 14:56 Penicillins Allergy Rash Verified 08/29/20 14:56 propoxyphene Allergy Rash Verified 08/29/20 14:56 [From Darvocet-N] Sulfa (Sulfonamide Allergy Rash Verified 08/29/20 14:56 Antibiotics) dairy Allergy Diarrhea Uncoded 02/12/19 14:15 napsylate Allergy Hives Uncoded 02/12/19 14:14 Home Medications Medication Instructions Recorded Confirmed Last Taken Type Ipratropium [place] 15 ml NS TID 07/20/20 08/30/20 Unknown History Doxepin [SINEquan] 25 mg PO QHS capsule 07/23/20 08/30/20 Unknown Rx Famotidine [Pepcid] 20 mg PO BID tablet 07/23/20 08/30/20 Unknown Rx Fluticasone [Flonase] 1 spray NS QDAY 30 Days bottle 07/23/20 08/30/20 08/28/20 Rx Furosemide [Lasix TAB] 40 mg PO BID #60 07/23/20 08/30/20 08/28/20 Rx Melatonin [Melatonin 5MG TAB] 5 mg PO HS #30 07/23/20 08/30/20 Unknown Rx Omeprazole 40 mg PO QAM #30 07/23/20 08/30/20 08/28/20 Rx Potassium Chloride [K-Dur] 20 meq PO QDAY #30 07/23/20 08/30/20 08/28/20 Rx Rivaroxaban [Xarelto] 10 mg PO QDAY #30 07/23/20 08/30/20 08/28/20 Rx Simvastatin 20 mg PO DAILY #30 07/23/20 08/30/20 08/28/20 Rx Sucralfate [Carafate] 10 ml PO QAM 30 Days 07/23/20 08/30/20 08/28/20 Rx cloNIDine [Catapres] 0.1 mg PO QHS tablet 07/23/20 08/30/20 08/28/20 Rx cloNIDine [Catapres] 0.1 mg PO QHS 30 Days 07/23/20 08/30/20 08/28/20 Rx clonazePAM [KlonoPIN] 0.5 mg PO BID PRN tablet 07/23/20 08/30/20 08/28/20 Rx propranoloL [Inderal] 10 mg PO BID #60 07/23/20 08/30/20 08/28/20 Rx verapamiL [Calan] 120 mg PO BID #60 07/23/20 08/30/20 08/28/20 Rx Benztropine [Cogentin] 0.5 mg PO BID #60 08/14/20 08/30/20 08/28/20 Rx Escitalopram [Lexapro] 10 mg PO QDAY #30 tablet 08/14/20 08/30/20 08/28/20 Rx Levothyroxine [Synthroid] 75 mcg PO QAM #30 08/14/20 08/30/20 08/28/20 Rx risperiDONE [RisperDAL] 1 mg PO BID #60 tablet 08/14/20 08/30/20 08/28/20 Rx OLANZapine [Zyprexa] 15 mg PO HS 08/30/20 08/30/20 08/28/20 History hydrOXYzine PAMOATE [Vistaril] 25 mg PO BID 08/30/20 08/30/20 08/28/20 History Active Meds: Active Medications Acetaminophen (Acetaminophen 325 Mg Tab) 650 mg PO Q6H PRN PRN Reason: Pain, Mild (1-3) Atorvastatin Calcium (Atorvastatin 40 Mg Tab) 40 mg PO QHS [facility] Last Admin: 08/30/20 21:45 Dose: 40 mg Documented by: Benztropine Mesylate (Benztropine 0.5 Mg Tab) 0.5 mg PO BID [facility] Last Admin: 08/30/20 21:45 Dose: 0.5 mg Documented by: Clonazepam (Clonazepam 0.5 Mg Tab) 0.5 mg PO BID PRN PRN Reason: Anxiety Last Admin: 08/30/20 18:06 Dose: 0.5 mg Documented by: Clonidine HCl (Clonidine 0.1 Mg Tab) 0.1 mg PO QHS [facility] Last Admin: 08/30/20 21:45 Dose: 0.1 mg Documented by: Dexamethasone (Dexamethasone 4 Mg Tab) 6 mg PO DAILY [facility] Last Admin: 08/30/20 11:10 Dose: 6 mg Documented by: Doxepin HCl (Doxepin 25 Mg Cap) 25 mg PO QHS [facility] Last Admin: 08/30/20 21:45 Dose: 25 mg Documented by: Escitalopram Oxalate (Escitalopram 10 Mg Tab) 10 mg PO QDAY [facility] Last Admin: 08/30/20 11:10 Dose: 10 mg Documented by: Famotidine (Famotidine 20 Mg Tab) 20 mg PO BID [facility] Last Admin: 08/30/20 21:45 Dose: 20 mg Documented by: Fluticasone Propionate (Fluticasone Propionate Nasal [place] 16 Gm) 50 mcg NS QDAY [facility] Last Admin: 08/30/20 11:11 Dose: 50 mcg Documented by: Furosemide (Furosemide 40 Mg Tab) 40 mg PO BID [facility] Last Admin: 08/30/20 21:45 Dose: 40 mg Documented by: Heparin Sodium (Porcine) (Heparin 5,000 Unit/1 Ml Vial) 5,000 unit SUB-Q Q8HR [facility] Last Admin: 08/31/20 05:55 Dose: 5,000 unit Documented by: Ipratropium [place] (Ipratropium 0.06% 15 Ml Nasal [place]) 2 spray NS TID [facility] Last Admin: 08/30/20 21:46 Dose: 2 spray Documented by: Magnesium Hydroxide (Magnesium Hydroxide (Mom) Oral Liqd Udc) 30 ml PO Q4H PRN PRN Reason: Constipation Meclizine HCl (Meclizine 25 Mg Tab) 25 mg PO Q8H PRN PRN Reason: Vertigo Last Admin: 08/30/20 22:52 Dose: 25 mg Documented by: Ondansetron HCl (Ondansetron 4 Mg/2 Ml Inj) 4 mg IV Q6H PRN PRN Reason: Nausea And Vomiting Last Admin: 08/30/20 18:06 Dose: 4 mg Documented by: Pantoprazole Sodium (Pantoprazole 40 Mg Tab) 40 mg PO QDAC [facility] Sodium Chloride (Sodium Chloride 0.9% 10 Ml Flush Syringe) 10 ml IV PRN PRN PRN Reason: LINE FLUSH Review of Systems All systems: negative (As mentioned in the H&P) Physical Examination Vital Signs Pulse Resp BP Pulse Ox 63 18 119/69 100 08/29/20 14:59 08/29/20 14:59 08/29/20 14:59 08/29/20 14:59 General appearance: obese HEENT: Positive: Normocephaly Neck: Positive: neck supple Cardiac: Positive: Reg Rate and Rhythm Lungs: Positive: clear to auscultation Neuro: Positive: Grossly Intact Abdomen: Positive: Soft Extremities: Present: normal Results 08/30/20 02:09 08/30/20 02:09 - EKG Interpretation EKG: sinus rhythm EKG interpretations - Telemetry EKG Rhythm: Sinus Rhythm Assessment and Plan Impression: 1. Chest pain highly atypical resolved. 2. Questionable history of congestive heart failure appears euvolemic with no symptoms 3. Recent history of Covid pneumonia resolved. 4. History of schizophrenia currently stable. 5. History of hypertension blood pressure control 6. Obesity Recent work-up: Remote left heart cath negative. Stress test 12/31 no ischemia. Echocardiogram this admission shows normal LV systolic function no concerning abnormalities Plan: Patient's chest pain is atypical. Symptoms have resolved. Prior work-up reviewed. Cardiac enzymes and EKG are benign. Would not recommend any further work-up from cardiac standpoint Patient can be discharged home with outpatient follow-up with patient's primary expansion joint finisher
[2020-08-31] MEDS: ESCITALOPRAM 10 MG TAB PO SCH (10:35)
[2020-08-31] MEDS: FUROSEMIDE 40 MG TAB PO SCH ×2 (10:35→21:44)
[2020-08-31] MEDS: BENZTROPINE 0.5 MG TAB PO SCH ×2 (10:35→21:43)
[2020-08-31] MEDS: DEXAMETHASONE 4 MG TAB PO SCH (10:35)
[2020-08-31] MEDS: FAMOTIDINE 20 MG TAB PO SCH ×2 (10:35→21:43)
[2020-08-31] MEDS: FLUTICASONE PROPIONATE NASAL SPRAY 16 GM NS SCH (10:35)
[2020-08-31] MEDS: PANTOPRAZOLE 40 MG TAB PO SCH (10:36)
[2020-08-31] MEDS: clonazePAM 0.5 MG TAB PO PRN (12:38)
--- NOTE | 2020-08-31 14:00 | Discharge Summary ---
Providers - Providers Date of Admission: 08/30/20 01:43 Date of discharge: 08/31/20 Attending physician: KARINA MCKEON 08/30/20 Consult to Cardiac Rehabilitation [CONS] Routine Reason For Exam: Phase I 08/30/20 11:03 Consult to Physician [CONS] Routine Comment: Consulting Provider: SERAFIN GROVE Physician Instructions: Reason For Exam: Chest pain Primary care physician: OSTOMY CARE NURSE Hospitalization Condition: Critical Hospital course: 50-year-old female with history of CHF, hypertension diabetes, bipolar, distant press schizophrenic affective disorder, Anxiety, Chronic back pain was brought to the emergency room for dizziness and chest pain. Chest pain was 3/10 since this morning. Patient is now chest pain-free. Patient states that she did hit her head on the refrigerator yesterday pretty hard. Denies any vomiting but suffers from chronic nausea. Denies any pain at this time. she feels like the room is spinning. Recently change of her psychiatric medications. States that she discontinued Abilify and started Risperdal twice a day. Reports that her legs felt like it is heavy. Hospital course EKG showed no acute changes. Troponin x4 -. Cardiology saw patient and recommended outpatient follow-up. Chest pain likely not cardiac in origin. Patient started on pantoprazole. Patient will need to follow-up with her primary medical doctor and fish rod maker for further evaluation. She notes having a history of esophageal dilation in the past. She agrees with plan. She also requests for home health and this was discussed with field nurse case manager. She requests for a walker as well. Referral has been placed. Patient will be called by home health agency in 72 hours. Patient is currently stable to be discharged. Disposition: - TO HOME OR SELFCARE - Discharge Diagnoses (1) Chest pain Status: Acute Qualifiers: Chest pain type: unspecified Qualified Code(s): R07.9 - Chest pain, unspecified Core Measure Documentation - Palliative Care Palliative Care/ Comfort Measures: Not Applicable - Core Measures Any of the following diagnoses?: none Exam - Physical Exam Narrative exam: VITAL SIGNS: Reviewed. GENERAL: Awake HEAD: No signs of head trauma. EYES: Pupils are equal. Extraocular motions intact. MOUTH: Oropharynx is normal. NECK: No adenopathy, no JVD. CHEST: Chest with diminished breath sounds bilaterally. No wheezes, rales, or rhonchi. CARDIAC: normal S1 and S2, without murmurs, gallops, or rubs. ABDOMEN: Soft, non tender and non distended. No rebound or guarding, and no masses palpated. Bowel Sounds normal. MUSCULOSKELETAL: No edema NEUROLOGIC EXAM: Alert and oriented x3. No focal neurologic deficits SKIN: No obvious lesions - Constitutional Vitals: Temp Pulse Resp BP Pulse Ox 98.0 F 82 16 137/81 95 08/31/20 12:08 08/31/20 12:08 08/31/20 04:28 08/31/20 12:08 08/31/20 12:08 Plan Additional Instructions: Continue pantoprazole. Follow-up with PCP and fish rod maker in the office Follow up with: PRIMARY MD QUIRINO [Primary Care Provider] - 7 Days Prescriptions: Omeprazole 40 mg PO QAM #30
--- NOTE | 2020-08-31 14:01 | Progress Note ---
Assessment and Plan Assessment and plan: (1) Chest pain EKG unremarkable Troponin x4 negative Cardiology recs appreciated (2) Dizziness Resolved. (3) Chronic medical conditions Continue home medications 4) Patient requests for home health. She says she is not able to properly carry our daily activities. PT/OT ordered. Informed SW. History Interval history: No complaints Hospitalist Physical - Physical exam Narrative exam: VITAL SIGNS: Reviewed. GENERAL: Awake HEAD: No signs of head trauma. EYES: Pupils are equal. Extraocular motions intact. MOUTH: Oropharynx is normal. NECK: No adenopathy, no JVD. CHEST: Chest with diminished breath sounds bilaterally. No wheezes, rales, or rhonchi. CARDIAC: normal S1 and S2, without murmurs, gallops, or rubs. ABDOMEN: Soft, non tender and non distended. No rebound or guarding, and no masses palpated. Bowel Sounds normal. MUSCULOSKELETAL: No edema NEUROLOGIC EXAM: Alert and oriented x3. No focal neurologic deficits SKIN: No obvious lesions - Constitutional Vitals: Temp Pulse Resp BP Pulse Ox 98.0 F 82 16 137/81 95 08/31/20 12:08 08/31/20 12:08 08/31/20 04:28 08/31/20 12:08 08/31/20 12:08 General appearance: Present: obese HEART Score - HEART Score EKG: Non-specific Age: 45-65 Risk factors: > 3 risk factors or hx of atherosclerotic disease Troponin: Troponin T < 0.010 ng/mL (0.00-0.029) 08/31/20 07:47 Troponin: < normal limit Results - Labs CBC & Chem 7: 08/30/20 02:09 08/30/20 02:09 Labs: Laboratory Last Values WBC 7.2 K/mm3 (4.5-11.0) 08/30/20 02:09 RBC 4.39 M/mm3 (3.65-5.03) 08/30/20 02:09 Hgb 12.0 gm/dl (10.1-14.3) 08/30/20 02:09 Hct 36.7 % (30.3-42.9) 08/30/20 02:09 MCV 84 fl (79-97) 08/30/20 02:09 MCH 27 pg (28-32) L 08/30/20 02:09 MCHC 33 % (30-34) 08/30/20 02:09 RDW 15.9 % (13.2-15.2) H 08/30/20 02:09 Plt Count 230 K/mm3 (140-440) 08/30/20 02:09 Lymph % (Auto) 30.1 % (13.4-35.0) 08/30/20 02:09 [place] % (Auto) 5.8 % (0.0-7.3) 08/30/20 02:09 Eos % (Auto) 2.1 % (0.0-4.3) 08/30/20 02:09 Baso % (Auto) 0.6 % (0.0-1.8) 08/30/20 02:09 Lymph # (Auto) 2.2 K/mm3 (1.2-5.4) 08/30/20 02:09 [place] # (Auto) 0.4 K/mm3 (0.0-0.8) 08/30/20 02:09 Eos # (Auto) 0.2 K/mm3 (0.0-0.4) 08/30/20 02:09 Baso # (Auto) 0.0 K/mm3 (0.0-0.1) 08/30/20 02:09 Seg Neutrophils % 61.4 % (40.0-70.0) 08/30/20 02:09 Seg Neutrophils # 4.4 K/mm3 (1.8-7.7) 08/30/20 02:09 PT 15.6 Sec. (12.2-14.9) H 08/29/20 16:19 INR 1.26 (0.87-1.13) H 08/29/20 16:19 APTT 40.0 Sec. (24.2-36.6) H 08/29/20 16:19 Sodium 142 mmol/L (137-145) 08/30/20 02:09 Potassium 4.2 mmol/L (3.6-5.0) 08/30/20 02:09 Chloride 105.4 mmol/L (98-107) 08/30/20 02:09 Carbon Dioxide 27 mmol/L (22-30) 08/30/20 02:09 Anion Gap 14 mmol/L 08/30/20 02:09 BUN 11 mg/dL (7-17) 08/30/20 02:09 Creatinine 0.8 mg/dL (0.6-1.2) 08/30/20 02:09 Estimated GFR > 60 ml/min 08/30/20 02:09 BUN/Creatinine Ratio 14 % 08/30/20 02:09 Glucose 81 mg/dL (65-100) 08/30/20 02:09 POC Glucose 83 mg/dL (70-105) 08/29/20 16:12 Calcium 9.0 mg/dL (8.4-10.2) 08/30/20 02:09 Total Bilirubin 0.20 mg/dL (0.1-1.2) 08/29/20 16:19 AST 22 units/L (5-40) 08/29/20 16:19 ALT 22 units/L (7-56) 08/29/20 16:19 Alkaline Phosphatase 88 units/L (35-129) 08/29/20 16:19 Troponin T < 0.010 ng/mL (0.00-0.029) 08/31/20 07:47 Total Protein 6.6 g/dL (6.3-8.2) 08/29/20 16:19 Albumin 4.2 g/dL (3.9-5) 08/29/20 16:19 Albumin/Globulin Ratio 1.8 % 08/29/20 16:19 - Diagnostic Impressions Diagnostic Impressions: Echocardiogram 08/30/20 01:54 Transthoracic Echocardiogram Indication: Dizziness BP: 142/84 Conclusions *The left ventricular chamber size, wall thickness and systolic function are within normal limits. There are no wall motion abnormalities observed. Ejection fraction is normal. *The estimated ejection fraction is 50-55%. *Normal left ventricular diastolic filling is observed. *The left atrium is normal in size with no visual thrombus identified. *The right ventricular chamber size and systolic function are within normal limits. *The right ventricular systolic pressure is calculated at 23 mmHg. Findings Procedure Info: The study quality is fair. Left Ventricle: The left ventricular chamber size, wall thickness and systolic function are within normal limits. There are no wall motion abnormalities observed. Ejection fraction is normal. The estimated ejection fraction is 50-55%. Normal left ventricular diastolic filling is observed. Left Atrium: The left atrium is normal in size with no visual thrombus identified. Right Ventricle: The right ventricular chamber size and systolic function are within normal limits. Right Atrium: The right atrium appears normal. Aortic Valve: The aortic valve is trileaflet. The leaflets are thin with normal excursion. There is no aortic stenosis or regurgitation present. Mitral Valve: The mitral valve leaflets appear normal. There is trace of mitral regurgitation. There is no evidence of mitral stenosis. Tricuspid Valve: The tricuspid valve leaflets are normal. There is trace tricuspid regurgitation. The right ventricular systolic pressure is calculated at 23 mmHg. There is no tricuspid stenosis. Pulmonic Valve: The pulmonic valve is not well visualized. There is no evidence of pulmonic regurgitation. There is no pulmonic stenosis. Pericardium: The pericardium appears normal. A pericardial fat pad is visualized. Aorta: The aorta appears normal. Pulmonary Artery: The main pulmonary artery is not well visualized. Venous: The inferior vena cava is dilated. There is a greater than 50% respiratory change in the inferior vena cava dimension. Measurements Chambers 2D Name Value Normal Range IVSd (2D) 0.95 cm (0.6 - 1.1) LVPWd (2D) 0.97 cm (0.6 - 1.1) LVIDd (2D) 4.88 cm (3.7 - 5.6) LVIDs (2D) 3.3 cm (2 - 3.8) LV FS (2D) 32.36 % - EF Teichholz (2D) 60.48 % - Ao root diameter (2D) 2.6 cm (2 - 3.7) Volumes/Mass Name Value Normal Range LA ESV SP 4CH (A/L) 64.4 ml - LA ESV SP 2CH (A/L) 84.57 ml - LA ESV BP (A/L) 74.94 ml - LA ESV BP (A/L) index 33.31 ml/m2 - LA ESV SP 4CH (MOD) 60.08 ml - LA ESV SP 2CH (MOD) 81.9 ml - LA ESV BP (MOD) 71.14 ml - LA ESV BP (MOD) index 31.62 ml/m2 - LV EDV SP 4CH (MOD) 146.28 ml - LV ESV SP 4CH (MOD) 53.44 ml - EF SP 4CH (MOD) 63.47 % - LV EDV SP 2CH (MOD) 136.19 ml - LV ESV SP 2CH (MOD) 29.61 ml - EF SP 2CH (MOD) 78.26 % - LV EDV BP 142.29 ml - LV ESV BP 40.74 ml - BP EF (MOD) 71.37 % - Diastolic/Systolic Function Name Value Normal Range MV E-wave Vmax 1.09 m/sec - MV deceleration time 319.62 msec - MV A-wave Vmax 0.88 m/sec - MV E:A ratio 1.24 ratio - Aortic Valve Name Value Normal Range AV Vmax 1.85 m/sec - AV VTI 43.42 cm - AV peak gradient 13.74 mmHg - AV mean gradient 6.25 mmHg - LVOT diameter 2.04 cm - LVOT Vmax 1.2 m/sec - LVOT VTI 31.48 cm - LVOT peak gradient 5.73 mmHg - LVOT mean gradient 2.74 mmHg - SV LVOT 103.19 ml - IFTIKHAR (continuity Vmax) 2.12 cm2 - IFTIKHAR (continuity VTI) 2.38 cm2 - Ascending Ao 2.85 cm - Tricuspid Valve Name Value Normal Range TV E-wave Vmax 0.47 m/sec - TR Vmax 1.96 m/sec - TR peak gradient 15.36 mmHg - RAP 8 mmHg - RVSP 23 mmHg - Pulmonic Valve/Qp:Qs Name Value Normal Range PV Vmax 1.05 m/sec - PV peak gradient 4.37 mmHg - RVOT Vmax 0.85 m/sec - RVOT VTI 20.92 cm - RVOT peak gradient 2.9 mmHg - PV acceleration time 117.98 msec - David/IV: Voiding Method Toilet IV Catheter Type [Right Peripheral IV Antecubital] Active Medications - Current Medications Current Medications: Generic Name Dose Route Start Last Admin Trade Name Freq PRN Reason Stop Dose Admin Acetaminophen 650 mg 08/30/20 01:53 Acetaminophen 325 Mg Tab PO Q6H PRN Pain, Mild (1-3) Atorvastatin Calcium 40 mg 08/30/20 22:00 08/30/20 21:45 Atorvastatin 40 Mg Tab PO 40 mg QHS AUGUSTIN Administration Benztropine Mesylate 0.5 mg 08/30/20 10:00 08/31/20 10:35 Benztropine 0.5 Mg Tab PO 0.5 mg BID AUGUSTIN Administration Clonazepam 0.5 mg 08/30/20 01:57 08/31/20 12:38 Clonazepam 0.5 Mg Tab PO 0.5 mg BID PRN Administration Anxiety Clonidine HCl 0.1 mg 08/30/20 22:00 08/30/20 21:45 Clonidine 0.1 Mg Tab PO 0.1 mg QHS AUGUSTIN Administration Dexamethasone 6 mg 08/30/20 10:00 08/31/20 10:35 Dexamethasone 4 Mg Tab PO 6 mg DAILY AUGUSTIN Administration Doxepin HCl 25 mg 08/30/20 22:00 08/30/20 21:45 Doxepin 25 Mg Cap PO 25 mg QHS AUGUSTIN Administration Escitalopram Oxalate 10 mg 08/30/20 10:00 08/31/20 10:35 Escitalopram 10 Mg Tab PO 10 mg QDAY AUGUSTIN Administration Famotidine 20 mg 08/30/20 10:00 08/31/20 10:35 Famotidine 20 Mg Tab PO 20 mg BID AUGUSTIN Administration Fluticasone Propionate 50 mcg 08/30/20 10:00 08/31/20 10:35 Fluticasone Propionate Nasal [place] 16 Gm NS 50 mcg QDAY AUGUSTIN Administration Furosemide 40 mg 08/30/20 10:00 08/31/20 10:35 Furosemide 40 Mg Tab PO 40 mg BID AUGUSTIN Administration Heparin Sodium (Porcine) 5,000 unit 08/30/20 06:00 08/31/20 05:55 Heparin 5,000 Unit/1 Ml Vial SUB-Q 5,000 unit Q8HR AUGUSTIN Administration Ipratropium [place] 2 spray 08/30/20 08:00 08/30/20 21:46 Ipratropium 0.06% 15 Ml Nasal [place] NS 2 spray TID AUGUSTIN Administration Magnesium Hydroxide 30 ml 08/31/20 06:08 Magnesium Hydroxide (Mom) Oral Liqd Udc PO Q4H PRN Constipation Meclizine HCl 25 mg 08/30/20 02:07 08/30/20 22:52 Meclizine 25 Mg Tab PO 25 mg Q8H PRN Administration Vertigo Ondansetron HCl 4 mg 08/30/20 04:28 08/30/20 18:06 Ondansetron 4 Mg/2 Ml Inj IV 4 mg Q6H PRN Administration Nausea And Vomiting Pantoprazole Sodium 40 mg 08/31/20 08:00 08/31/20 10:36 Pantoprazole 40 Mg Tab PO 40 mg QDAC AUGUSTIN Administration Sodium Chloride 10 ml 08/30/20 01:53 Sodium Chloride 0.9% 10 Ml Flush Syringe IV PRN PRN LINE FLUSH
[2020-08-31] MEDS: DOXEPIN 25 MG CAP PO SCH (21:43)
[2020-08-31] MEDS: cloNIDine 0.1 MG TAB PO SCH (21:44)
[2020-09-01] MEDS: IPRATROPIUM 0.06% NS SCH ×3 (05:19→14:31)
[2020-09-01] MEDS: HEPARIN 5,000 UNIT/1 ML VIAL SUB-Q SCH ×2 (05:19→13:24)
[2020-09-01] MEDS: PANTOPRAZOLE 40 MG TAB PO SCH (08:05)
[2020-09-01] MEDS: FAMOTIDINE 20 MG TAB PO SCH (10:40)
[2020-09-01] MEDS: ESCITALOPRAM 10 MG TAB PO SCH (10:40)
[2020-09-01] MEDS: FLUTICASONE PROPIONATE NASAL SPRAY 16 GM NS SCH (10:40)
[2020-09-01] MEDS: FUROSEMIDE 40 MG TAB PO SCH (10:40)
[2020-09-01 11:06] VITALS: BP 145/75
--- NOTE | 2020-09-01 12:42 | Progress Note ---
Assessment and Plan - Patient Problems (1) Atypical chest pain Current Visit: Yes Status: Acute Plan to address problem: Patient's chest pain has been determined atypical and nonanginal. There has been no further chest pain and she is discharged for outpatient follow-up by her primary soaping machine back tender in [place]. (2) Bradycardia Current Visit: Yes Status: Acute Plan to address problem: Patient has bradycardia noted most sleepy during sleep. I have discontinued clonidine, and recommended avoidance of any further AV chente blocking agents. I have also recommended that she considers getting a sleep study as an outpatient to further assess etiology of nocturnal bradycardia. Subjective Date of service: 09/01/20 Interval history: The patient looks and feels well, no cardiac complaints. No chest pain and no shortness of breath. No dizziness and no significant lower extremity edema. She is planned for discharge today, to follow-up with her primary soaping machine back tender in 5 to 7 days. 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 Review of telem etry histogram shows transient marked bradycardia in the mid to high 40s, during sleep. Objective Vital Signs Temp Pulse Pulse Resp BP BP Pulse Ox 09/01/20 11:06 98.7 F 79 16 145/75 97 09/01/20 08:07 98.2 F 57 L 18 135/71 93 09/01/20 08:00 60 15 99 09/01/20 05:00 97.7 F 57 L 20 132/77 96 09/01/20 00:14 97.9 F 51 L 20 137/69 94 09/01/20 00:00 58 L 08/31/20 20:00 18 98 08/31/20 19:57 98.1 F 56 L 20 120/66 89 08/31/20 16:51 82 08/31/20 16:00 98.6 F 71 20 120/64 95 - Physical Examination General: Other (Moderately-severe obesity) HEENT: Positive: Normocephaly Neck: Positive: neck supple Cardiac: Positive: Reg Rate and Rhythm Lungs: Positive: Decreased Breath Sounds Neuro: Positive: Grossly Intact Abdomen: Positive: Soft Skin: Positive: Clear Extremities: Absent: edema
[2020-09-01] MEDS: BENZTROPINE 0.5 MG TAB PO SCH (12:45)
== END 2020-09-01 19:25 | disposition home or self-care (01) ==
LOC: ED 14:41 → 4A 08-30 01:43
PROVIDERS: ADMIT Hospitalist; ATTEND Internal Medicine
DX: R07.89 Other chest pain (principal); R42 Dizziness and giddiness; I11.0 Hypertensive heart disease with heart failure; I50.9 Heart failure, unspecified; R00.1 Bradycardia, unspecified; E11.9 Type 2 diabetes mellitus without complications; F20.9 Schizophrenia, unspecified; F31.9 Bipolar disorder, unspecified; F41.9 Anxiety disorder, unspecified; M54.9 Dorsalgia, unspecified; G89.29 Other chronic pain; E03.9 Hypothyroidism, unspecified; G47.30 Sleep apnea, unspecified; K58.9 Irritable bowel syndrome, unspecified; G51.0 Bell's palsy; N83.209 Unspecified ovarian cyst, unspecified side; Z79.82 Long term (current) use of aspirin; Z86.718 Personal history of other venous thrombosis and embolism; Z79.899 Other long term (current) drug therapy; Z98.890 Other specified postprocedural states
CPT/HCPCS: 36415; 70450; 71045; 80048; 80053; 82962; 84484; 85025; 85610; 85730; 93005; 93306; 96372; 96374; 96376; 97162; 97165; 99285; A9270; G0378; J1644; J2405; J8540

== ENCOUNTER 2020-09-07 12:38 | Emergency (ER) | payer MEDICARE ==
[2020-09-07] MEDS ORDERED: SODIUM CHLORIDE 0.9% 1000 ML 1,000 ML IV ONE (14:45)
--- NOTE | 2020-09-07 14:50 | Event Note ---
ED Screening Note Date of service: 09/07/20 Time: 14:47 ED Screening Note: 50-year-old female presents to the ER today complaint of right-sided abdominal pain and rectal bleeding. Patient states that her symptoms started today. Patient reports maroon-colored blood. She states that her first episode was maroon-colored blood with hard stools and she does admit that she had to strain with bowel movement. She states that she went to the bathroom again here in the ER, but this time passed a blood clot without any stool. She reports associated dizziness she denies any nausea or vomiting. She is on Xarelto for past medical history of DVT. She states that she had a colonoscopy 5 or more years ago. History of colon polyps, noncancerous. She does have a GI specialist. She had an EGD last March and that was fine. No history of diverticulosis or diverticulitis. Patient also complains of difficulty swallowing which has been going on for the past 2 weeks mainly with solid foods. She is able to tolerate liquids, and soft foods. This initial assessment/diagnostic orders/clinical plan/treatment(s) is/are subject to change based on patients health status, clinical progression and re- assessment by fellow clinical providers in the ED. Further treatment and workup at subsequent clinical providers discretion. Patient/guardian urged not to elope from the ED as their condition may be serious if not clinically assessed and managed. Initial orders include: CBC, CMP, lipase, PT and INR, type and screen, fecal occult guaiac
[2020-09-07 16:07] LABS: INR 1.13 (0.87-1.13)
[2020-09-07 16:10] LABS: Basophils # (Auto) 0.1 K/mm3 (0.0-0.1); Eosinophils # (Auto) 0.2 K/mm3 (0.0-0.4); Eosinophils % (Auto) 1.9 % (0.0-4.3); Hematocrit 36.9 % (30.3-42.9); Hemoglobin 12.1 gm/dl (10.1-14.3); Lymphocytes # (Auto) 1.8 K/mm3 (1.2-5.4); Lymphocytes % (Auto) 20.1 % (13.4-35.0); Mean Corpuscular HGB Conc 33 % (30-34); Mean Corpuscular Volume 84 fl (79-97); Monocytes # (Auto) 0.6 K/mm3 (0.0-0.8); Monocytes % (Auto) 6.4 % (0.0-7.3); Platelet Count 248 K/mm3 (140-440); Red Blood Count 4.39 M/mm3 (3.65-5.03); Red Cell Distribution Width 16.1 % (13.2-15.2)
[2020-09-07 16:14] LABS: Alanine Aminotransferase 18 units/L (7-56); Albumin 3.8 g/dL (3.9-5); BUN/Creatinine Ratio 19; Bilirubin,Direct < 0.2 mg/dL (0-0.2); Blood Urea Nitrogen 13 mg/dL (7-17); Calcium 8.4 mg/dL (8.4-10.2); Hemolysis Index 24
[2020-09-07 16:29] LABS: Bacteria,Urine 1+ /HPF (Negative); Bilirubin,Urine NEG (Negative); Blood,Urine NEG (Negative); Color,Urine Yellow (Yellow); Protein,Urine <15 mg/dL mg/dL (Negative); RBC,Urine < 1.0 /HPF (0.0-6.0); Urobilinogen,Urine < 2.0 mg/dL (<2.0)
[2020-09-07 20:30] VITALS: BP 144/94
--- NOTE | 2020-09-07 20:38 | Emergency Department Report ---
ED GI Bleed HPI - General Chief complaint: Abdominal Pain Stated complaint: ABD PAIN Time Seen by Provider: 09/07/20 20:15 Source: patient Mode of arrival: Wheelchair Limitations: No Limitations - History of Present Illness Initial comments: 50 yo female with history of CHF, hypertension, diabetes, bipolar disorder, schizoaffective disorder, anxiety, chronic back pain, presents to ED with rectal bleeding. Patient states she had 2 episodes of rectal bleeding earlier today. Patient reports the first episode was stool mixed with blood. Patient states the second episode was a small amount of blood only. Patient does report that she has been constipated recently and did have to strain to get the stool out. Patient reports some associated abdominal cramping, which is not unusual for her. Patient states she is on medication for her abdominal pain. Patient reports she recently underwent EGD in March 2020. States the EGD was normal but she underwent esophageal dilatation. Patient denies any nausea or vomiting. She is currently on Xarelto for DVT. MD complaint: blood streaked stool -: This afternoon Location: diffuse Severity scale (0 -10): 7 Quality: cramping Consistency: intermittent Improves with: none Worsens with: none Associated Symptoms: denies: nausea, vomiting, fever/chills - Related Data Home Medications Medication Instructions Recorded Confirmed Last Taken Ipratropium [place] 15 ml NS TID 07/20/20 08/30/20 Unknown OLANZapine [Zyprexa] 15 mg PO HS 08/30/20 08/30/20 08/28/20 hydrOXYzine PAMOATE [Vistaril] 25 mg PO BID 08/30/20 08/30/20 08/28/20 Previous Rx's Medication Instructions Recorded Last Taken Type Doxepin [SINEquan] 25 mg PO QHS capsule 07/23/20 Unknown Rx Famotidine [Pepcid] 20 mg PO BID tablet 07/23/20 Unknown Rx Fluticasone [Flonase] 1 spray NS QDAY 30 Days bottle 07/23/20 08/28/20 Rx Furosemide [Lasix TAB] 40 mg PO BID #60 07/23/20 08/28/20 Rx Melatonin [Melatonin 5MG TAB] 5 mg PO HS #30 07/23/20 Unknown Rx Potassium Chloride [K-Dur] 20 meq PO QDAY #30 07/23/20 08/28/20 Rx Rivaroxaban [Xarelto] 10 mg PO QDAY #30 07/23/20 08/28/20 Rx Simvastatin 20 mg PO DAILY #30 07/23/20 08/28/20 Rx Sucralfate [Carafate] 10 ml PO QAM 30 Days 07/23/20 08/28/20 Rx cloNIDine [Catapres] 0.1 mg PO QHS tablet 07/23/20 08/28/20 Rx cloNIDine [Catapres] 0.1 mg PO QHS 30 Days 07/23/20 08/28/20 Rx clonazePAM [KlonoPIN] 0.5 mg PO BID PRN tablet 07/23/20 08/28/20 Rx propranoloL [Inderal] 10 mg PO BID #60 07/23/20 08/28/20 Rx verapamiL [Calan] 120 mg PO BID #60 07/23/20 08/28/20 Rx Benztropine [Cogentin] 0.5 mg PO BID #60 08/14/20 08/28/20 Rx Escitalopram [Lexapro] 10 mg PO QDAY #30 tablet 08/14/20 08/28/20 Rx Levothyroxine [Synthroid] 75 mcg PO QAM #30 08/14/20 08/28/20 Rx risperiDONE [RisperDAL] 1 mg PO BID #60 tablet 08/14/20 08/28/20 Rx Omeprazole 40 mg PO QAM #30 09/01/20 Unknown Rx Docusate Sodium [Colace] 100 mg PO BID #30 capsule 09/07/20 Unknown Rx Allergies Allergy/AdvReac Type Severity Reaction Status Date / Time acetaminophen [From Lortab] Allergy Shortness Verified 09/07/20 13:09 of Breath aspirin Allergy Hives Verified 09/07/20 13:09 divalproex sodium Allergy Rash Verified 09/07/20 13:09 [From Depakote] hydrocodone [From Lortab] Allergy Hives Verified 09/07/20 13:09 latex Allergy Rash Verified 09/07/20 13:09 nut - unspecified Allergy Shortness Verified 09/07/20 13:09 of Breath oxycodone Allergy Hives Verified 09/07/20 13:09 Penicillins Allergy Rash Verified 09/07/20 13:09 propoxyphene Allergy Rash Verified 09/07/20 13:09 [From Darvocet-N] Sulfa (Sulfonamide Allergy Rash Verified 09/07/20 13:09 Antibiotics) dairy Allergy Diarrhea Uncoded 02/12/19 14:15 napsylate Allergy Hives Uncoded 02/12/19 14:14 ED Review of Systems ROS: Stated complaint: ABD PAIN Other details as noted in HPI Comment: All other systems reviewed and negative Constitutional: denies: chills, fever Gastrointestinal: as per HPI ED Past Medical Hx - Past Medical History Hx Hypertension: Yes Hx Congestive Heart Failure: Yes Hx Diabetes: Yes Hx Deep Vein Thrombosis: Yes Hx Psychiatric Treatment: Yes (Bipolar Depressed schizo affective, anxiety) Hx Asthma: Yes Additional medical history: Hypothyroidism, sleep apnea, DVT, Chronic Back pain, Gastritis, IBS. Hyperlipidemia, Ovarian cyst. Stubbs's palsey - Surgical History Hx Cholecystectomy: Yes Additional Surgical History: Tonsilectomy, Uterine Ablation, Hernia repair, D&C. 2 molar pulled. stiched to nasal cavity. Right Rotator cuff repair. - Social History Smoking Status: Never Smoker Substance Use Type: None - Medications Home Medications: Home Medications Medication Instructions Recorded Confirmed Last Taken Type Ipratropium [place] 15 ml NS TID 07/20/20 08/30/20 Unknown History Doxepin [SINEquan] 25 mg PO QHS capsule 07/23/20 08/30/20 Unknown Rx Famotidine [Pepcid] 20 mg PO BID tablet 07/23/20 08/30/20 Unknown Rx Fluticasone [Flonase] 1 spray NS QDAY 30 Days bottle 07/23/20 08/30/20 08/28/20 Rx Furosemide [Lasix TAB] 40 mg PO BID #60 07/23/20 08/30/20 08/28/20 Rx Melatonin [Melatonin 5MG TAB] 5 mg PO HS #30 07/23/20 08/30/20 Unknown Rx Potassium Chloride [K-Dur] 20 meq PO QDAY #30 07/23/20 08/30/20 08/28/20 Rx Rivaroxaban [Xarelto] 10 mg PO QDAY #30 07/23/20 08/30/20 08/28/20 Rx Simvastatin 20 mg PO DAILY #30 07/23/20 08/30/20 08/28/20 Rx Sucralfate [Carafate] 10 ml PO QAM 30 Days 12/05/0408/30/20 08/28/20 Rx cloNIDine [Catapres] 0.1 mg PO QHS tablet 07/23/20 08/30/20 08/28/20 Rx cloNIDine [Catapres] 0.1 mg PO QHS 30 Days 07/23/20 08/30/20 08/28/20 Rx clonazePAM [KlonoPIN] 0.5 mg PO BID PRN tablet 07/23/20 08/30/20 08/28/20 Rx propranoloL [Inderal] 10 mg PO BID #60 07/23/20 08/30/20 08/28/20 Rx verapamiL [Calan] 120 mg PO BID #60 07/23/20 08/30/20 08/28/20 Rx Benztropine [Cogentin] 0.5 mg PO BID #60 08/14/20 08/30/20 08/28/20 Rx Escitalopram [Lexapro] 10 mg PO QDAY #30 tablet 08/14/20 08/30/20 08/28/20 Rx Levothyroxine [Synthroid] 75 mcg PO QAM #30 08/14/20 08/30/20 08/28/20 Rx risperiDONE [RisperDAL] 1 mg PO BID #60 tablet 08/14/20 08/30/20 08/28/20 Rx OLANZapine [Zyprexa] 15 mg PO HS 08/30/20 08/30/20 08/28/20 History hydrOXYzine PAMOATE [Vistaril] 25 mg PO BID 08/30/20 08/30/20 08/28/20 History Omeprazole 40 mg PO QAM #30 09/01/20 Unknown Rx Docusate Sodium [Colace] 100 mg PO BID #30 capsule 09/07/20 Unknown Rx ED Physical Exam - General Limitations: No Limitations General appearance: alert, in no apparent distress, obese - Head Head exam: Present: atraumatic, normocephalic - Eye Eye exam: Present: normal appearance, EOMI - ENT ENT exam: Present: mucous membranes moist - Neck Neck exam: Present: normal inspection - Respiratory Respiratory exam: Present: normal lung sounds bilaterally. Absent: respiratory distress - Cardiovascular Cardiovascular Exam: Present: regular rate, normal rhythm - GI/Abdominal GI/Abdominal exam: Present: soft. Absent: distended, tenderness - Rectal Rectal exam: Present: heme (+) stool (Faintly positive), other (Brown stool) - Extremities Exam Extremities exam: Present: normal inspection - Neurological Exam Neurological exam: Present: alert, oriented X3 - Psychiatric Psychiatric exam: Present: normal affect, normal mood - Skin Skin exam: Present: warm, dry, intact, normal color ED Course Vital Signs 09/07/20 09/07/20 09/07/20 13:12 20:28 20:30 Temperature 98.4 F 98.3 F Pulse Rate 79 79 Respiratory 20 20 20 Rate Blood Pressure 129/63 144/94 O2 Sat by Pulse 95 98 Oximetry ED Medical Decision Making - Lab Data Result diagrams: 09/07/20 15:26 09/07/20 15:26 - Medical Decision Making 50-year-old female with 2 episodes of rectal bleeding. On exam stool is brown and faintly guaiac positive. Hemoglobin is normal. Vital signs are stable. Remainder of labs are normal. Patient does not require inpatient treatment at this time, patient will be discharged home. Outpatient follow-up advised, return precautions given. - Differential Diagnosis GI bleed, constipation Critical care attestation.: If time is entered above; I have spent that time in minutes in the direct care of this critically ill patient, excluding procedure time. ED Disposition Clinical Impression: Rectal bleeding Disposition: - TO HOME OR SELFCARE Is pt being admited?: No Condition: Stable Instructions: Rectal Bleeding, [id number], Abdominal Pain (ED) Prescriptions: Docusate Sodium [Colace] 100 mg PO BID #30 capsule Referrals: PRIMARY CAREMD [Primary Care Provider] - 3-5 Days [facility] [Provider Group] - 3-5 Days Time of Disposition: 20:39
== END 2020-09-07 21:02 | disposition home or self-care (01) ==
LOC: ED 12:38
DX: K62.5 Hemorrhage of anus and rectum (principal); I11.0 Hypertensive heart disease with heart failure; I50.9 Heart failure, unspecified; E11.9 Type 2 diabetes mellitus without complications; J45.909 Unspecified asthma, uncomplicated; Z90.49 Acquired absence of other specified parts of digestive tract; Z90.89 Acquired absence of other organs; Z98.890 Other specified postprocedural states; Z79.899 Other long term (current) drug therapy; Z88.8 Allergy status to other drugs, medicaments and biological substances
CPT/HCPCS: 36415; 80048; 80076; 81001; 83690; 85025; 85610; 86850; 86900; 86901; 99284

== ENCOUNTER 2020-10-04 11:37 | Emergency (ER) | payer MEDICARE ==
[2020-10-04 11:43] VITALS: BP 132/72
--- NOTE | 2020-10-04 11:50 | Emergency Department Report ---
ED General Adult HPI - General Chief complaint: Abdominal Pain Stated complaint: ADBDOMINAL PAIN Time Seen by Provider: 10/04/20 11:48 Source: patient, EMS Mode of arrival: Stretcher Limitations: No Limitations - History of Present Illness Initial comments: This is a 50-year-old female with history of psychiatric disorder. She presents to the emergency department complaining of abdominal pain and distention. She states that she has been constipated for 3 days. She does not refer vomiting. Abdominal pain is generalized/poorly localized. There is apparently mild to moderate and constant. She states that she was nauseated and took Zofran at home which was not effective. Apparently the last EGD the patient had was in March she states. She states she has not had a colonoscopy for some time. She has been on Xarelto chronically. She was here in August complaining of rectal bleeding. She was found to have a minimally positive Hemoccult with no change in her hemoglobin. Patient states that she has a family history of gastric cancer. She went to a green marketer at [place]. She states she has an appointment for repeat EGD and colonoscopy with a green marketer at [place]. Prior emergency department visit: - History of Present Illness Initial comments: 50 yo female with history of CHF, hypertension, diabetes, bipolar disorder, schizoaffective disorder, anxiety, chronic back pain, presents to ED with rectal bleeding. Patient states she had 2 episodes of rectal bleeding earlier today. Patient reports the first episode was stool mixed with blood. Patient states the second episode was a small amount of blood only. Patient does report that she has been constipated recently and did have to strain to get the stool out. Patient reports some associated abdominal cramping, which is not unusual for her. Patient states she is on medication for her abdominal pain. Patient reports she recently underwent EGD in March 2020. States the EGD was normal but she underwent esophageal dilatation. Patient denies any nausea or vomiting. She is currently on Xarelto for DVT. Upon Medical Screening conclusion: - Medical Decision Making 50-year-old female with 2 episodes of rectal bleeding. On exam stool is brown and faintly guaiac positive. Hemoglobin is normal. Vital signs are stable. Remainder of labs are normal. Patient does not require inpatient treatment at this time, patient will be discharged home. Outpatient follow-up advised, return precautions given. -: Gradual, days(s) Location: abdomen Radiation: non-radiation Quality: aching Consistency: constant Improves with: none Worsens with: none Associated Symptoms: denies other symptoms, nausea/vomiting (Nausea without vomiting) Treatments Prior to Arrival: other (Zofran) - Related Data Home Medications Medication Instructions Recorded Confirmed Last Taken Ipratropium Dunnell 15 ml NS TID 07/20/20 08/30/20 Unknown OLANZapine [Zyprexa] 15 mg PO HS 08/30/20 08/30/20 08/28/20 hydrOXYzine PAMOATE [Vistaril] 25 mg PO BID 08/30/20 08/30/20 08/28/20 Previous Rx's Medication Instructions Recorded Last Taken Type Doxepin [SINEquan] 25 mg PO QHS capsule 07/23/20 Unknown Rx Famotidine [Pepcid] 20 mg PO BID tablet 07/23/20 Unknown Rx Fluticasone [Flonase] 1 spray NS QDAY 30 Days bottle 07/23/20 08/28/20 Rx Furosemide [Lasix TAB] 40 mg PO BID #60 07/23/20 08/28/20 Rx Melatonin [Melatonin 5MG TAB] 5 mg PO HS #30 07/23/20 Unknown Rx Potassium Chloride [K-Dur] 20 meq PO QDAY #30 07/23/20 08/28/20 Rx Rivaroxaban [Xarelto] 10 mg PO QDAY #30 07/23/20 08/28/20 Rx Simvastatin 20 mg PO DAILY #30 07/23/20 08/28/20 Rx Sucralfate [Carafate] 10 ml PO QAM 30 Days 07/23/20 08/28/20 Rx cloNIDine [Catapres] 0.1 mg PO QHS tablet 07/23/20 08/28/20 Rx cloNIDine [Catapres] 0.1 mg PO QHS 30 Days 07/23/20 08/28/20 Rx clonazePAM [KlonoPIN] 0.5 mg PO BID PRN tablet 07/23/20 08/28/20 Rx propranoloL [Inderal] 10 mg PO BID #60 07/23/20 08/28/20 Rx verapamiL [Calan] 120 mg PO BID #60 07/23/20 08/28/20 Rx Benztropine [Cogentin] 0.5 mg PO BID #60 08/14/20 08/28/20 Rx Escitalopram [Lexapro] 10 mg PO QDAY #30 tablet 08/14/20 08/28/20 Rx Levothyroxine [Synthroid] 75 mcg PO QAM #30 08/14/20 08/28/20 Rx risperiDONE [RisperDAL] 1 mg PO BID #60 tablet 08/14/20 08/28/20 Rx Omeprazole 40 mg PO QAM #30 09/01/20 Unknown Rx Docusate Sodium [Colace] 100 mg PO BID #30 capsule 09/07/20 Unknown Rx Docusate Sodium [Colace] 100 mg PO BID #30 capsule 10/04/20 Unknown Rx Allergies Allergy/AdvReac Type Severity Reaction Status Date / Time acetaminophen [From Lortab] Allergy Shortness Verified 09/07/20 13:09 of Breath aspirin Allergy Hives Verified 09/07/20 13:09 divalproex sodium Allergy Rash Verified 09/07/20 13:09 [From Depakote] hydrocodone [From Lortab] Allergy Hives Verified 09/07/20 13:09 latex Allergy Rash Verified 09/07/20 13:09 nut - unspecified Allergy Shortness Verified 09/07/20 13:09 of Breath oxycodone Allergy Hives Verified 09/07/20 13:09 Penicillins Allergy Rash Verified 09/07/20 13:09 propoxyphene Allergy Rash Verified 09/07/20 13:09 [From Darvocet-N] Sulfa (Sulfonamide Allergy Rash Verified 09/07/20 13:09 Antibiotics) dairy Allergy Diarrhea Uncoded 02/12/19 14:15 napsylate Allergy Hives Uncoded 02/12/19 14:14 ED Review of Systems ROS: Stated complaint: ADBDOMINAL PAIN Other details as noted in HPI Constitutional: denies: chills, fever Eyes: denies: eye pain, vision change ENT: denies: ear pain, throat pain Respiratory: denies: cough, shortness of breath Cardiovascular: denies: chest pain, palpitations Endocrine: no symptoms reported Gastrointestinal: as per HPI, abdominal pain, nausea, constipation Genitourinary: denies: urgency, dysuria Musculoskeletal: denies: back pain, joint swelling, arthralgia Skin: denies: rash, lesions Neurological: denies: headache, weakness, paresthesias Psychiatric: denies: anxiety, depression Hematological/Lymphatic: denies: easy bleeding, easy bruising ED Past Medical Hx - Past Medical History Hx Hypertension: Yes Hx Congestive Heart Failure: Yes Hx Diabetes: Yes Hx Deep Vein Thrombosis: Yes Hx Psychiatric Treatment: Yes (Bipolar Depressed schizo affective, anxiety) Hx Asthma: Yes Additional medical history: Hypothyroidism, sleep apnea, DVT, Chronic Back pain, Gastritis, IBS. Hyperlipidemia, Ovarian cyst. Stubbs's palsey - Surgical History Hx Cholecystectomy: Yes Additional Surgical History: Tonsilectomy, Uterine Ablation, Hernia repair, D&C. 2 molar pulled. stiched to nasal cavity. Right Rotator cuff repair. Cholecystectomy. Patient states that she has mesh from hernia repair. - Social History Smoking Status: Never Smoker - Medications Home Medications: Home Medications Medication Instructions Recorded Confirmed Last Taken Type Ipratropium Dunnell 15 ml NS TID 07/20/20 08/30/20 Unknown History Doxepin [SINEquan] 25 mg PO QHS capsule 07/23/20 08/30/20 Unknown Rx Famotidine [Pepcid] 20 mg PO BID tablet 07/23/20 08/30/20 Unknown Rx Fluticasone [Flonase] 1 spray NS QDAY 30 Days bottle 07/23/20 08/30/20 08/28/20 Rx Furosemide [Lasix TAB] 40 mg PO BID #60 07/23/20 08/30/20 08/28/20 Rx Melatonin [Melatonin 5MG TAB] 5 mg PO HS #30 07/23/20 08/30/20 Unknown Rx Potassium Chloride [K-Dur] 20 meq PO QDAY #30 07/23/20 08/30/20 08/28/20 Rx Rivaroxaban [Xarelto] 10 mg PO QDAY #30 07/23/20 08/30/20 08/28/20 Rx Simvastatin 20 mg PO DAILY #30 07/23/20 08/30/20 08/28/20 Rx Sucralfate [Carafate] 10 ml PO QAM 30 Days 07/23/20 08/30/20 08/28/20 Rx cloNIDine [Catapres] 0.1 mg PO QHS tablet 07/23/20 08/30/20 08/28/20 Rx cloNIDine [Catapres] 0.1 mg PO QHS 30 Days 07/23/20 08/30/20 08/28/20 Rx clonazePAM [KlonoPIN] 0.5 mg PO BID PRN tablet 07/23/20 08/30/20 08/28/20 Rx propranoloL [Inderal] 10 mg PO BID #60 07/23/20 08/30/20 08/28/20 Rx verapamiL [Calan] 120 mg PO BID #60 07/23/20 08/30/20 08/28/20 Rx Benztropine [Cogentin] 0.5 mg PO BID #60 08/14/20 08/30/20 08/28/20 Rx Escitalopram [Lexapro] 10 mg PO QDAY #30 tablet 08/14/20 08/30/20 08/28/20 Rx Levothyroxine [Synthroid] 75 mcg PO QAM #30 08/14/20 08/30/20 08/28/20 Rx risperiDONE [RisperDAL] 1 mg PO BID #60 tablet 08/14/20 08/30/20 08/28/20 Rx OLANZapine [Zyprexa] 15 mg PO HS 08/30/20 08/30/20 08/28/20 History hydrOXYzine PAMOATE [Vistaril] 25 mg PO BID 08/30/20 08/30/20 08/28/20 History Omeprazole 40 mg PO QAM #30 09/01/20 Unknown Rx Docusate Sodium [Colace] 100 mg PO BID #30 capsule 09/07/20 Unknown Rx Docusate Sodium [Colace] 100 mg PO BID #30 capsule 10/04/20 Unknown Rx ED Physical Exam - General Limitations: Physical Limitation General appearance: alert, in no apparent distress, obese - Head Head exam: Present: atraumatic, normocephalic - Eye Eye exam: Present: normal appearance. Absent: scleral icterus - ENT ENT exam: Present: mucous membranes moist - Neck Neck exam: Present: normal inspection - Respiratory Respiratory exam: Present: normal lung sounds bilaterally. Absent: respiratory distress - Cardiovascular Cardiovascular Exam: Present: regular rate, normal rhythm. Absent: systolic mu rmur, diastolic murmur, rubs, gallop - GI/Abdominal GI/Abdominal exam: Present: soft, normal bowel sounds, other (Obese, laparoscopy scars). Absent: tenderness (No evidence of significant tenderness on palpation), guarding, rebound, rigid, organomegaly, mass, bruit, pulsatile mass, hernia - Extremities Exam Extremities exam: Present: normal inspection - Back Exam Back exam: Present: normal inspection - Neurological Exam Neurological exam: Present: alert, oriented X3 - Psychiatric Psychiatric exam: Present: normal affect, normal mood - Skin Skin exam: Present: warm, dry, intact, normal color. Absent: rash ED Course Vital Signs 10/04/20 11:40 Temperature 98.2 F Pulse Rate 71 Respiratory 18 Rate Blood Pressure 132/72 O2 Sat by Pulse 96 Oximetry - Reevaluation(s) Reevaluation #1: Patient resting comfortably. Oddly, she took Imodium for her constipation. She was counseled against that. Primary care doctor told her to take Metamucil. She did not take that because she was concerned that it would make her difficulty in swallowing worse. She is appropriate for outpatient management. She will be given a bottle of mag citrate to try at home as well as a stool softener. 10/04/20 14:51 ED Medical Decision Making - Lab Data Result diagrams: 10/04/20 12:14 10/04/20 12:14 Laboratory Results - last 24 hr 10/04/20 10/04/20 10/04/20 12:14 12:14 12:14 WBC 6.5 RBC 4.56 Hgb 12.6 Hct 38.1 MCV 84 MCH 28 MCHC 33 RDW 14.5 Plt Count 247 Lymph % (Auto) 22.8 Perry % (Auto) 6.5 Eos % (Auto) 1.3 Baso % (Auto) 0.7 Lymph # (Auto) 1.5 Perry # (Auto) 0.4 Eos # (Auto) 0.1 Baso # (Auto) 0.0 Seg Neutrophils % 68.7 Seg Neutrophils # 4.5 PT 18.1 H INR 1.51 H APTT 44.6 H Sodium 138 Potassium 4.0 Chloride 101.6 Carbon Dioxide 27 Anion Gap 13 BUN 14 Creatinine 0.8 Estimated GFR > 60 BUN/Creatinine Ratio 18 Glucose 97 Calcium 8.6 Total Bilirubin 0.20 AST 19 ALT 19 Alkaline Phosphatase 89 Total Protein 6.6 Albumin 4.0 Albumin/Globulin Ratio 1.5 HCG, Qual 10/04/20 12:28 WBC RBC Hgb Hct MCV MCH MCHC RDW Plt Count Lymph % (Auto) Perry % (Auto) Eos % (Auto) Baso % (Auto) Lymph # (Auto) Perry # (Auto) Eos # (Auto) Baso # (Auto) Seg Neutrophils % Seg Neutrophils # PT INR APTT Sodium Potassium Chloride Carbon Dioxide Anion Gap BUN Creatinine Estimated GFR BUN/Creatinine Ratio Glucose Calcium Total Bilirubin AST ALT Alkaline Phosphatase Total Protein Albumin Albumin/Globulin Ratio HCG, Qual Negative Laboratory Results - last 24 hr 10/04/20 10/04/20 10/04/20 12:14 12:14 12:14 WBC 6.5 RBC 4.56 Hgb 12.6 Hct 38.1 MCV 84 MCH 28 MCHC 33 RDW 14.5 Plt Count 247 Lymph % (Auto) 22.8 Perry % (Auto) 6.5 Eos % (Auto) 1.3 Baso % (Auto) 0.7 Lymph # (Auto) 1.5 Perry # (Auto) 0.4 Eos # (Auto) 0.1 Baso # (Auto) 0.0 Seg Neutrophils % 68.7 Seg Neutrophils # 4.5 PT 18.1 H INR 1.51 H APTT 44.6 H Sodium 138 Potassium 4.0 Chloride 101.6 Carbon Dioxide 27 Anion Gap 13 BUN 14 Creatinine 0.8 Estimated GFR > 60 BUN/Creatinine Ratio 18 Glucose 97 Calcium 8.6 Total Bilirubin 0.20 Direct Bilirubin < 0.2 Indirect Bilirubin 0.0 AST 19 ALT 19 Alkaline Phosphatase 89 Total Protein 6.6 Albumin 4.0 Albumin/Globulin Ratio 1.5 HCG, Qual 10/04/20 12:28 WBC RBC Hgb Hct MCV MCH MCHC RDW Plt Count Lymph % (Auto) Perry % (Auto) Eos % (Auto) Baso % (Auto) Lymph # (Auto) Perry # (Auto) Eos # (Auto) Baso # (Auto) Seg Neutrophils % Seg Neutrophils # PT INR APTT Sodium Potassium Chloride Carbon Dioxide Anion Gap BUN Creatinine Estimated GFR BUN/Creatinine Ratio Glucose Calcium Total Bilirubin Direct Bilirubin Indirect Bilirubin AST ALT Alkaline Phosphatase Total Protein Albumin Albumin/Globulin Ratio HCG, Qual Negative - Radiology Data Radiology results: report reviewed CT showed no acute process. There is no obstruction. It was consistent with constipation. Critical care attestation.: If time is entered above; I have spent that time in minutes in the direct care of this critically ill patient, excluding procedure time. ED Disposition Clinical Impression: Abdominal pain Qualifiers: Abdominal location: generalized Qualified Code(s): R10.84 - Generalized abdominal pain Constipation Qualifiers: Constipation type: unspecified constipation type Qualified Code(s): K59.00 - Constipation, unspecified Disposition: TO HOME OR SELFCARE Is pt being admited?: No Does the pt Need Aspirin: No Condition: Stable Instructions: Abdominal Pain (ED), Constipation, Adult, Abdominal Pain, Adult, [id number] Additional Instructions: Return any acute change or problem. Follow-up with your GI specialist as you have planned. Prescriptions: Docusate Sodium [Colace] 100 mg PO BID #30 capsule Referrals: PRIMARY CARE, [Primary Care Provider] - 3-5 Days [place], GI specialist [Other] - 3-5 Days Time of Disposition: 14:54
[2020-10-04] MEDS ORDERED: MORPHINE 2 MG/1 ML INJ IV ONE (12:01)
[2020-10-04] MEDS ORDERED: LORazepam 2 MG/ML VIAL IV ONE (12:01)
[2020-10-04] MEDS ORDERED: ONDANSETRON 4 MG/2 ML INJ IV ONE (12:01)
[2020-10-04] MEDS ORDERED: SODIUM CHLORIDE 0.9% 1000 ML 1,000 ML IV ONE (12:01)
[2020-10-04 12:59] LABS: Basophils % (Auto) 0.7 % (0.0-1.8); Eosinophils # (Auto) 0.1 K/mm3 (0.0-0.4); Eosinophils % (Auto) 1.3 % (0.0-4.3); Hematocrit 38.1 % (30.3-42.9); Hemoglobin 12.6 gm/dl (10.1-14.3); Lymphocytes # (Auto) 1.5 K/mm3 (1.2-5.4); Lymphocytes % (Auto) 22.8 % (13.4-35.0); Mean Corpuscular HGB Conc 33 % (30-34); Mean Corpuscular Volume 84 fl (79-97); Monocytes # (Auto) 0.4 K/mm3 (0.0-0.8); Monocytes % (Auto) 6.5 % (0.0-7.3); Platelet Count 247 K/mm3 (140-440); Red Blood Count 4.56 M/mm3 (3.65-5.03); Red Cell Distribution Width 14.5 % (13.2-15.2)
[2020-10-04 13:07] LABS: INR 1.51 (0.87-1.13)
[2020-10-04 13:08] LABS: Partial Thromboplastin Time 44.6 Sec. (24.2-36.6)
[2020-10-04 13:17] LABS: Alanine Aminotransferase 19 units/L (7-56); BUN/Creatinine Ratio 18; Blood Urea Nitrogen 14 mg/dL (7-17); Calcium 8.6 mg/dL (8.4-10.2); Hemolysis Index 11
[2020-10-04 13:29] LABS: Bilirubin,Direct < 0.2 mg/dL (0-0.2)
--- NOTE | 2020-10-04 14:22 | Cat Scan Report ---
CT ABDOMEN AND PELVIS WITH CONTRAST INDICATION / CLINICAL INFORMATION: abd pain, constipation. TECHNIQUE: Axial CT images were obtained through the abdomen and pelvis after 100 cc of Omnipaque [address] scans at this location are performed using CT dose reduction for ALARA by means of automat ed exposure control. COMPARISON: None available. FINDINGS: LOWER CHEST: No acute abnormality LIVER: No significant abnormality. GALLBLADDER: Cholecystectomy BILE DUCTS: No significant abnormality. PANCREAS: No significant abnormality. SPLEEN: No significant abnormality. ADRENALS: No significant abnormality. RIGHT KIDNEY and URETER: No significant abnormality. LEFT KIDNEY and URETER: No significant abnormality. STOMACH and SMALL BOWEL: No significant abnormality. COLON: There is a moderate to large amount stool noted throughout the colon raising possibility of co nstipation. APPENDIX: No significant abnormality. PERITONEUM: No free fluid. No free air. No fluid collection. LYMPH NODES: No significant adenopathy. AORTA and ARTERIES: No significant abnormality. IVC and VEINS: No significant abnormality. URINARY BLADDER: No significant abnormality. REPRODUCTIVE ORGANS: There is a 2.5 cm right ovarian cyst. This measured 3 cm on the prior CT. ADDITIONAL FINDINGS: There is a small fat-containing ventral hernia just above the umbilicus. SKELETAL SYSTEM: No acute abnormality. IMPRESSION: 1. There is possible constipation. 2. There is no obstruction, inflammation, or free air. Signer Name: Ilan Montaño MD Signed: 10/04/2020 2:17 PM Workstation Name: [id number]
[2020-10-04 14:26] LABS: Bilirubin,Urine NEG (Negative); Blood,Urine NEG (Negative); Color,Urine Straw (Yellow); Protein,Urine <15 mg/dL mg/dL (Negative); Urobilinogen,Urine < 2.0 mg/dL (<2.0); WBC,Urine < 1.0 /HPF (0.0-6.0)
[2020-10-04] MEDS ORDERED: MAGNESIUM CITRATE 300 ML ORAL LIQD PO ONE (14:56)
== END 2020-10-04 15:37 | disposition home or self-care (01) ==
LOC: ED 11:37
DX: K59.00 Constipation, unspecified (principal); R10.84 Generalized abdominal pain; I10 Essential (primary) hypertension; I50.9 Heart failure, unspecified; E11.9 Type 2 diabetes mellitus without complications; F31.9 Bipolar disorder, unspecified; J45.909 Unspecified asthma, uncomplicated; Z90.49 Acquired absence of other specified parts of digestive tract; Z98.890 Other specified postprocedural states; Z79.899 Other long term (current) drug therapy; Z88.8 Allergy status to other drugs, medicaments and biological substances
CPT/HCPCS: 36415; 74177; 80048; 80076; 81001; 84703; 85025; 85610; 85730; 96361; 96374; 96375; 99284; J2060; J2270; J2405; J7030; Q9967

== ENCOUNTER 2020-10-26 15:10 | Emergency (ER) | payer MEDICARE ==
[2020-10-26 15:57] LABS: Basophils # (Auto) 0.1 K/mm3 (0.0-0.1); Basophils % (Auto) 0.8 % (0.0-1.8); Eosinophils # (Auto) 0.2 K/mm3 (0.0-0.4); Eosinophils % (Auto) 2.3 % (0.0-4.3); Hematocrit 38.4 % (30.3-42.9); Hemoglobin 12.6 gm/dl (10.1-14.3); Lymphocytes # (Auto) 2.1 K/mm3 (1.2-5.4); Mean Corpuscular HGB Conc 33 % (30-34); Mean Corpuscular Volume 82 fl (79-97); Monocytes # (Auto) 0.4 K/mm3 (0.0-0.8); Monocytes % (Auto) 6.1 % (0.0-7.3); Platelet Count 259 K/mm3 (140-440); Red Blood Count 4.66 M/mm3 (3.65-5.03); Red Cell Distribution Width 14.7 % (13.2-15.2)
[2020-10-26 16:17] LABS: BUN/Creatinine Ratio 14; Blood Urea Nitrogen 13 mg/dL (7-17); Calcium 8.9 mg/dL (8.4-10.2); Hemolysis Index 8
--- NOTE | 2020-10-26 17:34 | Emergency Department Report ---
ED General Adult HPI - General Chief complaint: Pain General Stated complaint: LEG PAIN X2DAYS Time Seen by Provider: 10/26/20 16:52 Source: patient, EMS Mode of arrival: Stretcher Limitations: No Limitations - History of Present Illness Initial comments: 50-year-old female, history of diabetes, bipolar disorder, asthma, CHF, hypothyroidism, presents to ED with burning sensation to bilateral lower legs x2 days. Patient states she normally ambulates with a walker and has been able to do so since onset of the burning pain. She denies any trauma to the legs. She denies any back pain. Patient denies any swelling to the lower legs. -: days(s) (2) Location: left, right, lower extremity Radiation: non-radiation Severity scale (0 -10): 0 Quality: burning Improves with: none Worsens with: none Associated Symptoms: denies other symptoms. denies: fever/chills - Related Data Home Medications Medication Instructions Recorded Confirmed Last Taken Ipratropium [place] 15 ml NS TID 07/20/20 08/30/20 Unknown OLANZapine [Zyprexa] 15 mg PO HS 08/30/20 08/30/20 08/28/20 hydrOXYzine PAMOATE [Vistaril] 25 mg PO BID 08/30/20 08/30/20 08/28/20 Previous Rx's Medication Instructions Recorded Last Taken Type Doxepin [SINEquan] 25 mg PO QHS capsule 07/23/20 Unknown Rx Famotidine [Pepcid] 20 mg PO BID tablet 07/23/20 Unknown Rx Fluticasone [Flonase] 1 spray NS QDAY 30 Days bottle 07/23/20 08/28/20 Rx Furosemide [Lasix TAB] 40 mg PO BID #60 07/23/20 08/28/20 Rx Melatonin [Melatonin 5MG TAB] 5 mg PO HS #30 07/23/20 Unknown Rx Potassium Chloride [K-Dur] 20 meq PO QDAY #30 07/23/20 08/28/20 Rx Rivaroxaban [Xarelto] 10 mg PO QDAY #30 07/23/20 08/28/20 Rx Simvastatin 20 mg PO DAILY #30 07/23/20 08/28/20 Rx Sucralfate [Carafate] 10 ml PO QAM 30 Days 07/23/20 08/28/20 Rx cloNIDine [Catapres] 0.1 mg PO QHS tablet 07/23/20 08/28/20 Rx cloNIDine [Catapres] 0.1 mg PO QHS 30 Days 07/23/20 08/28/20 Rx clonazePAM [KlonoPIN] 0.5 mg PO BID PRN tablet 07/23/20 08/28/20 Rx propranoloL [Inderal] 10 mg PO BID #60 07/23/20 08/28/20 Rx verapamiL [Calan] 120 mg PO BID #60 07/23/20 08/28/20 Rx Benztropine [Cogentin] 0.5 mg PO BID #60 08/14/20 08/28/20 Rx Escitalopram [Lexapro] 10 mg PO QDAY #30 tablet 08/14/20 08/28/20 Rx Levothyroxine [Synthroid] 75 mcg PO QAM #30 08/14/20 08/28/20 Rx risperiDONE [RisperDAL] 1 mg PO BID #60 tablet 08/14/20 08/28/20 Rx Omeprazole 40 mg PO QAM #30 09/01/20 Unknown Rx Docusate Sodium [Colace] 100 mg PO BID #30 capsule 09/07/20 Unknown Rx Docusate Sodium [Colace] 100 mg PO BID #30 capsule 10/04/20 Unknown Rx Allergies Allergy/AdvReac Type Severity Reaction Status Date / Time acetaminophen [From Lortab] Allergy Shortness Verified 09/07/20 13:09 of Breath aspirin Allergy Hives Verified 09/07/20 13:09 divalproex sodium Allergy Rash Verified 09/07/20 13:09 [From Depakote] hydrocodone [From Lortab] Allergy Hives Verified 09/07/20 13:09 latex Allergy Rash Verified 09/07/20 13:09 nut - unspecified Allergy Shortness Verified 09/07/20 13:09 of Breath oxycodone Allergy Hives Verified 09/07/20 13:09 Penicillins Allergy Rash Verified 09/07/20 13:09 propoxyphene Allergy Rash Verified 09/07/20 13:09 [From Darvocet-N] Sulfa (Sulfonamide Allergy Rash Verified 09/07/20 13:09 Antibiotics) dairy Allergy Diarrhea Uncoded 02/12/19 14:15 napsylate Allergy Hives Uncoded 02/12/19 14:14 ED Review of Systems ROS: Stated complaint: LEG PAIN X2DAYS Other details as noted in HPI Comment: All other systems reviewed and negative Constitutional: denies: fever Musculoskeletal: denies: back pain, joint swelling Neurological: paresthesias. denies: weakness, numbness ED Past Medical Hx - Past Medical History Hx Hypertension: Yes Hx Congestive Heart Failure: Yes Hx Diabetes: Yes Hx Deep Vein Thrombosis: Yes Hx Psychiatric Treatment: Yes (Bipolar Depressed schizo affective, anxiety) Hx Asthma: Yes Additional medical history: Hypothyroidism, sleep apnea, DVT, Chronic Back pain, Gastritis, IBS. Hyperlipidemia, Ovarian cyst. Stubbs's palsey - Surgical History Hx Cholecystectomy: Yes Additional Surgical History: Tonsilectomy, Uterine Ablation, Hernia repair, D&C. 2 molar pulled. stiched to nasal cavity. Right Rotator cuff repair. Cholecystectomy. Patient states that she has mesh from hernia repair. - Social History Smoking Status: Never Smoker - Medications Home Medications: Home Medications Medication Instructions Recorded Confirmed Last Taken Type Ipratropium [place] 15 ml NS TID 07/20/20 08/30/20 Unknown History Doxepin [SINEquan] 25 mg PO QHS capsule 07/23/20 08/30/20 Unknown Rx Famotidine [Pepcid] 20 mg PO BID tablet 07/23/20 08/30/20 Unknown Rx Fluticasone [Flonase] 1 spray NS QDAY 30 Days bottle 07/23/20 08/30/20 08/28/20 Rx Furosemide [Lasix TAB] 40 mg PO BID #60 07/23/20 08/30/20 08/28/20 Rx Melatonin [Melatonin 5MG TAB] 5 mg PO HS #30 07/23/20 08/30/20 Unknown Rx Potassium Chloride [K-Dur] 20 meq PO QDAY #30 07/23/20 08/30/20 08/28/20 Rx Rivaroxaban [Xarelto] 10 mg PO QDAY #30 07/23/20 08/30/20 08/28/20 Rx Simvastatin 20 mg PO DAILY #30 07/23/20 08/30/20 08/28/20 Rx Sucralfate [Carafate] 10 ml PO QAM 30 Days 07/23/20 08/30/20 08/28/20 Rx cloNIDine [Catapres] 0.1 mg PO QHS tablet 07/23/20 08/30/20 08/28/20 Rx cloNIDine [Catapres] 0.1 mg PO QHS 30 Days 07/23/20 08/30/20 08/28/20 Rx clonazePAM [KlonoPIN] 0.5 mg PO BID PRN tablet 07/23/20 08/30/20 08/28/20 Rx propranoloL [Inderal] 10 mg PO BID #60 07/23/20 08/30/20 08/28/20 Rx verapamiL [Calan] 120 mg PO BID #60 07/23/20 08/30/20 08/28/20 Rx Benztropine [Cogentin] 0.5 mg PO BID #60 08/14/20 08/30/20 08/28/20 Rx Escitalopram [Lexapro] 10 mg PO QDAY #30 tablet 08/14/20 08/30/20 08/28/20 Rx Levothyroxine [Synthroid] 75 mcg PO QAM #30 08/14/20 08/30/20 08/28/20 Rx risperiDONE [RisperDAL] 1 mg PO BID #60 tablet 08/14/20 08/30/20 08/28/20 Rx OLANZapine [Zyprexa] 15 mg PO HS 08/30/20 08/30/20 08/28/20 History hydrOXYzine PAMOATE [Vistaril] 25 mg PO BID 08/30/20 08/30/20 08/28/20 History Omeprazole 40 mg PO QAM #30 09/01/20 Unknown Rx Docusate Sodium [Colace] 100 mg PO BID #30 capsule 09/07/20 Unknown Rx Docusate Sodium [Colace] 100 mg PO BID #30 capsule 10/04/20 Unknown Rx ED Physical Exam - General Limitations: No Limitations General appearance: alert, in no apparent distress, obese - Head Head exam: Present: atraumatic, normocephalic - Eye Eye exam: Present: normal appearance, EOMI - ENT ENT exam: Present: mucous membranes moist - Neck Neck exam: Present: normal inspection - Respiratory Respiratory exam: Present: normal lung sounds bilaterally. Absent: respiratory distress - Cardiovascular Cardiovascular Exam: Present: regular rate, normal rhythm - GI/Abdominal GI/Abdominal exam: Absent: distended - Extremities Exam Extremities exam: Present: normal inspection, tenderness (Slightly tender bilaterally), normal capillary refill, pedal edema. Absent: calf tenderness - Neurological Exam Neurological exam: Present: alert, oriented X3. Absent: motor sensory deficit - Psychiatric Psychiatric exam: Present: normal affect, normal mood - Skin Skin exam: Present: warm, dry, intact, normal color ED Course Vital Signs 10/26/20 10/26/20 10/26/20 15:16 15:21 15:30 Temperature 98.8 F Pulse Rate 63 Respiratory 20 Rate Blood Pressure 147/114 147/114 O2 Sat by Pulse 99 100 98 Oximetry 10/26/20 10/26/20 10/26/20 15:46 16:00 16:11 Temperature Pulse Rate Respiratory 20 Rate Blood Pressure 147/114 132/71 O2 Sat by Pulse 99 97 100 Oximetry 10/26/20 10/26/20 10/26/20 16:18 16:30 16:46 Temperature Pulse Rate Respiratory Rate Blood Pressure 129/68 129/68 O2 Sat by Pulse 95 99 99 Oximetry 10/26/20 10/26/20 10/26/20 17:00 17:16 17:30 Temperature Pulse Rate Respiratory Rate Blood Pressure 119/68 119/68 126/68 O2 Sat by Pulse 98 99 99 Oximetry 10/26/20 10/26/20 17:46 18:00 Temperature Pulse Rate Respiratory Rate Blood Pressure 126/68 113/73 O2 Sat by Pulse 99 100 Oximetry ED Medical Decision Making - Lab Data Result diagrams: 10/26/20 15:41 10/26/20 15:41 - Medical Decision Making 50-year-old female presents to ED with bilateral lower leg burning pain x2 days. Patient reports history of diabetes, however, she reports that she is not currently on any medication for it. States her diabetes is controlled with diet. Patient denies any swelling in the legs. She denies any chest pain or shortness of breath. There is some tenderness to the anterior lower legs. No evidence of infection. There is no calf tenderness. Labs are unremarkable. Patient will be discharged at this time. She is advised to follow-up with her PCP. Return precautions given. - Differential Diagnosis Neuropathy, CHF, cellulitis Critical care attestation.: If time is entered above; I have spent that time in minutes in the direct care of this critically ill patient, excluding procedure time. ED Disposition Clinical Impression: Peripheral neuropathy Disposition: DC-01 TO HOME OR SELFCARE Is pt being admited?: No Condition: Stable Instructions: Peripheral Neuropathy, Paresthesia, [id number] Referrals: LUIS WATKINS MD [Primary Care Provider] - 3-5 Days Time of Disposition: 17:40
[2020-10-26 18:06] VITALS: BP 113/73
== END 2020-10-26 18:08 | disposition home or self-care (01) ==
LOC: ED 15:10
DX: G62.9 Polyneuropathy, unspecified (principal); I11.0 Hypertensive heart disease with heart failure; I50.9 Heart failure, unspecified; E11.9 Type 2 diabetes mellitus without complications; J45.909 Unspecified asthma, uncomplicated; F31.9 Bipolar disorder, unspecified; Z86.718 Personal history of other venous thrombosis and embolism; Z90.49 Acquired absence of other specified parts of digestive tract; Z98.890 Other specified postprocedural states; Z79.899 Other long term (current) drug therapy; Z88.8 Allergy status to other drugs, medicaments and biological substances
CPT/HCPCS: 36415; 80048; 83735; 85025

== ENCOUNTER 2020-11-09 12:49 | Observation (INO) | payer MEDICARE ==
[2020-11-09] MEDS ORDERED: NITROGLYCERIN 2% OINT 1 GM TP ONE (13:05)
[2020-11-09] MEDS ORDERED: ONDANSETRON 4 MG/2 ML INJ IV ONE (13:05)
[2020-11-09] MEDS ORDERED: fentaNYL 100 MCG/2 ML INJ IV ONE (13:05)
--- NOTE | 2020-11-09 13:09 | Emergency Department Report ---
HPI - General Time Seen by Provider: 11/09/20 12:51 - HPI HPI: Room 2 The patient is a 50-year-old female present with a chief complaint of chest pain. Patient states she awakened this morning with upper left chest and substernal chest pain described as sharp and intermittent in nature. Patient admits to shortness of breath and nausea but denies vomiting or diaphoresis with this pain. 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 She was advised to call 911 which she did and was transported to the ED. Patient currently gives her pain a score 7/10. Patient denies history of fever but states she has had a cough productive of brown sputum for the past 3 days. Of note the patient received her first vaccination of the [employer] CovCadigo vaccine yesterday. The patient states she had a stress test last month but is not certain of the results and her last cardiac catheterization may have occurred over 5 years ago ED Past Medical Hx - Past Medical History Hx Hypertension: Yes Hx Congestive Heart Failure: Yes Hx Diabetes: Yes Hx Deep Vein Thrombosis: Yes Hx Psychiatric Treatment: Yes (Bipolar Depressed schizo affective, anxiety) Hx Asthma: Yes Additional medical history: Hypothyroidism, sleep apnea, DVT, Chronic Back pain, Gastritis, IBS. Hyperlipidemia, Ovarian cyst. Stubbs's palsey - Surgical History Hx Cholecystectomy: Yes Additional Surgical History: Tonsilectomy, Uterine Ablation, Hernia repair, D&C. 2 molar pulled. stiched to nasal cavity. Right Rotator cuff repair. Cholecystectomy. Patient states that she has mesh from hernia repair. - Family History Family history: no significant - Social History Smoking Status: Never Smoker Substance Use Type: None (Denies illicit drug) - Medications Home Medications: Home Medications Medication Instructions Recorded Confirmed Last Taken Type Ipratropium [place] 15 ml NS TID 07/20/20 08/30/20 Unknown History Doxepin [SINEquan] 25 mg PO QHS capsule 07/23/20 08/30/20 Unknown Rx Famotidine [Pepcid] 20 mg PO BID tablet 07/23/20 08/30/20 Unknown Rx Fluticasone [Flonase] 1 spray NS QDAY 30 Days bottle 07/23/20 08/30/20 08/28/20 Rx Furosemide [Lasix TAB] 40 mg PO BID #60 07/23/20 08/30/20 08/28/20 Rx Melatonin [Melatonin 5MG TAB] 5 mg PO HS #30 07/23/20 08/30/20 Unknown Rx Potassium Chloride [K-Dur] 20 meq PO QDAY #30 07/23/20 08/30/20 08/28/20 Rx Rivaroxaban [Xarelto] 10 mg PO QDAY #30 07/23/20 08/30/20 08/28/20 Rx Simvastatin 20 mg PO DAILY #30 07/23/20 08/30/20 08/28/20 Rx Sucralfate [Carafate] 10 ml PO QAM 30 Days 07/23/20 08/30/20 08/28/20 Rx cloNIDine [Catapres] 0.1 mg PO QHS tablet 07/23/20 08/30/20 08/28/20 Rx cloNIDine [Catapres] 0.1 mg PO QHS 30 Days 07/23/20 08/30/20 08/28/20 Rx clonazePAM [KlonoPIN] 0.5 mg PO BID PRN tablet 07/23/20 08/30/20 08/28/20 Rx propranoloL [Inderal] 10 mg PO BID #60 07/23/20 08/30/20 08/28/20 Rx verapamiL [Calan] 120 mg PO BID #60 07/23/20 08/30/20 08/28/20 Rx Benztropine [Cogentin] 0.5 mg PO BID #60 08/14/20 08/30/20 08/28/20 Rx Escitalopram [Lexapro] 10 mg PO QDAY #30 tablet 08/14/20 08/30/20 08/28/20 Rx Levothyroxine [Synthroid] 75 mcg PO QAM #30 08/14/20 08/30/20 08/28/20 Rx risperiDONE [RisperDAL] 1 mg PO BID #60 tablet 08/14/20 08/30/20 08/28/20 Rx OLANZapine [Zyprexa] 15 mg PO HS 08/30/20 08/30/20 08/28/20 History hydrOXYzine PAMOATE [Vistaril] 25 mg PO BID 08/30/20 08/30/20 08/28/20 History Omeprazole 40 mg PO QAM #30 09/01/20 Unknown Rx Docusate Sodium [Colace] 100 mg PO BID #30 capsule 09/07/20 Unknown Rx Docusate Sodium [Colace] 100 mg PO BID #30 capsule 10/04/20 Unknown Rx ED Review of Systems ROS: Stated complaint: CHEST PAIN Other details as noted in HPI Constitutional: denies: diaphoresis, fever Eyes: denies: eye pain ENT: denies: throat pain Respiratory: cough, shortness of breath Cardiovascular: chest pain Endocrine: no symptoms reported Gastrointestinal: nausea. denies: vomiting Genitourinary: denies: dysuria Musculoskeletal: denies: back pain Neurological: denies: headache Physical Exam - Physical Exam Physical Exam: GENERAL: The patient is well-developed well-nourished female lying on stretcher not appearing to be in acute distress. [] HEENT: Normocephalic. Atraumatic. Extraocular motions are intact. Patient has moist mucous membranes. NECK: Supple. Trachea midline CHEST/LUNGS: Clear to auscultation. There is no respiratory distress noted. HEART/CARDIOVASCULAR: Regular. There is no tachycardia. There is no gallop rub or murmur. ABDOMEN: Abdomen is soft, nontender. Patient has normal bowel sounds. There is no abdominal distention. SKIN: There is no rash. There is no edema. There is no diaphoresis. NEURO: The patient is awake, alert, and oriented. The patient is cooperative. The patient has no focal neurologic deficits. The patient has normal speech MUSCULOSKELETAL: There is no evidence of acute injury. ED Medical Decision Making - Lab Data Result diagrams: 11/09/20 13:11 11/09/20 13:11 Laboratory Tests 11/09/20 11/09/20 11/09/20 13:11 13:11 13:11 WBC 7.1 RBC 4.39 Hgb 11.7 Hct 36.1 MCV 82 MCH 27 L MCHC 32 RDW 14.8 Plt Count 244 Lymph % (Auto) 22.1 [place] % (Auto) 7.7 H Eos % (Auto) 1.9 Baso % (Auto) 0.7 Lymph # (Auto) 1.6 [place] # (Auto) 0.5 Eos # (Auto) 0.1 Baso # (Auto) 0.0 Seg Neutrophils % 67.6 Seg Neutrophils # 4.8 PT 17.1 H INR 1.40 H Sodium 138 Potassium 3.8 Chloride 102.7 Carbon Dioxide 25 Anion Gap 14 BUN 13 Creatinine 0.7 Estimated GFR > 60 BUN/Creatinine Ratio 19 Glucose 99 Calcium 8.2 L Total Creatine Kinase 110 CK-MB (CK-2) 1.3 CK-MB (CK-2) Rel Index 1.1 Troponin T < 0.010 - EKG Data -: EKG Interpreted by Me EKG shows normal: sinus rhythm Rate: normal - EKG Data When compared to previous EKG there are: previous EKG unavailable Interpretation: other (No ischemic changes seen) - Radiology Data Radiology results: report reviewed (Chest x-ray), image reviewed (Chest x-ray) interpreted by me: Chest x-ray-no focal infiltrates, no pneumothorax. No foreign body seen [facility] [address] [place] [address] XRay Report Signed Patient: ANETA LIVE MR#: [id number] : 1970 Acct:[id number] Age/Sex: 50 / F ADM Date: 11/09/20 Loc: ED Attending Dr: Ordering Physician: SUSHILA CENTENO MD Date of Service: 11/09/20 Procedure(s): XR chest 1V ap Accession Number(s): [id number] cc: SUSHILA CENTENO MD Fluoro Time In Minutes: CHEST 1 VIEW 11/09/2020 1:16 PM INDICATION / CLINICAL INFORMATION: chest pain. COMPARISON: 08/30/20 FINDINGS: SUPPORT DEVICES: None. HEART / MEDIASTINUM: No significant abnormality. LUNGS / PLEURA: Suboptimal inspiration resulting in low lung volumes. No pneumothorax. ADDITIONAL FINDINGS: No significant additional findings. IMPRESSION: 1. No acute findings. Signer Name: Katlin Chaves MD Signed: 11/09/2020 2:13 PM Workstation Name: [id number] Transcribed By: DT Dictated By: Celso Chaves MD Electronically Authenticated By: Celso Chaves MD Signed Date/Time: 11/09/201412 DD/ 12 TD/TT: Print - Differential Diagnosis ACS, pericarditis, GERD, bronchitis, pneumonia Critical care attestation.: If time is entered above; I have spent that time in minutes in the direct care of this critically ill patient, excluding procedure time. ED Disposition Clinical Impression: Chest pain Disposition: DC-09 OP ADMIT IP TO THIS HOSP Is pt being admited?: Yes Does the pt Need Aspirin: Yes Condition: Fair Instructions: Nonspecific Chest Pain, Adult Referrals: PRIMARY CARE,MD [Referring] - 3-5 Days Time of Disposition: 14:28 (Hospitalist paged (Dr. Nagy)) Heart Score - HEART Score History: Moderately suspicious EKG: Non-specific Age: 45-65 Risk factors: 1-2 risk factors Troponin: < normal limit HEART Score: 4
[2020-11-09 13:21] LABS: Basophils % (Auto) 0.7 % (0.0-1.8); Eosinophils # (Auto) 0.1 K/mm3 (0.0-0.4); Eosinophils % (Auto) 1.9 % (0.0-4.3); Hematocrit 36.1 % (30.3-42.9); Hemoglobin 11.7 gm/dl (10.1-14.3); Lymphocytes # (Auto) 1.6 K/mm3 (1.2-5.4); Lymphocytes % (Auto) 22.1 % (13.4-35.0); Mean Corpuscular HGB Conc 32 % (30-34); Mean Corpuscular Volume 82 fl (79-97); Monocytes # (Auto) 0.5 K/mm3 (0.0-0.8); Monocytes % (Auto) 7.7 % (0.0-7.3); Platelet Count 244 K/mm3 (140-440); Red Blood Count 4.39 M/mm3 (3.65-5.03); Red Cell Distribution Width 14.8 % (13.2-15.2)
[2020-11-09 13:31] LABS: INR 1.4 (0.87-1.13)
[2020-11-09 13:44] LABS: Creatine Kinase MB 1.3 ng/mL (0.0-4.0)
[2020-11-09 13:45] LABS: Blood Urea Nitrogen 13 mg/dL (7-17); Calcium 8.2 mg/dL (8.4-10.2); Hemolysis Index 10
[2020-11-09 14:03] LABS: BUN/Creatinine Ratio 19
--- NOTE | 2020-11-09 14:18 | XRay Report ---
CHEST 1 VIEW 11/09/2020 1:16 PM INDICATION / CLINICAL INFORMATION: chest pain. COMPARISON: 08/30/20 FINDINGS: SUPPORT DEVICES: None. HEART / MEDIASTINUM: No significant abnormality. LUNGS / PLEURA: Suboptimal inspiration resulting in low lung volumes. No pneumothorax. ADDITIONAL FINDINGS: No significant additional findings. IMPRESSION: 1. No acute findings. Signer Name: Katlin Chaves MD Signed: 11/09/2020 2:13 PM Workstation Name: [id number]
[2020-11-09] MEDS ORDERED: clonazePAM 0.5 MG TAB PO PRN (23:00)
[2020-11-09] MEDS ORDERED: MORPHINE 4 MG/1 ML INJ IV PRN (23:29)
[2020-11-09] MEDS: BENZTROPINE 0.5 MG TAB PO SCH (23:51)
[2020-11-09] MEDS: DOCUSATE SODIUM 100 MG CAP PO SCH (23:51)
[2020-11-09] MEDS: PROPRANOLOL 10 MG TAB PO SCH (23:52)
[2020-11-09] MEDS: risperiDONE 1 MG TAB PO SCH (23:53)
[2020-11-09] MEDS: VERAPAMIL 120 MG TAB PO SCH (23:53)
[2020-11-10] MEDS ORDERED: MORPHINE 2 MG/1 ML INJ IV PRN (01:00)
[2020-11-10] MEDS: FUROSEMIDE 40 MG TAB PO SCH ×2 (05:06→17:51)
[2020-11-10] MEDS ORDERED: LEVOTHYROXINE 75 MCG TAB PO SCH (06:00)
[2020-11-10] MEDS ORDERED: PANTOPRAZOLE 40 MG TAB PO SCH (07:30)
--- NOTE | 2020-11-10 07:36 | History and Physical Report ---
History of Present Illness Date of examination: 11/09/20 Date of admission: 11/09/20 17:18 Chief complaint: Chest pain since a.m. History of present illness: 50-year-old female with history of gastroesophageal reflux disease CHF history of for DVT and hyperlipidemia and depression and hypothyroidism comes in for left-sided chest pain since a.m. Chest pain is intermittent in nature. About 7 on a scale of 1-10. Nonradiating. No diaphoresis. No shortness of breath. No palpitations. She called 911 and came by EMS. Patient received her first vaccination of Covid vaccination yesterday. Patient states he had a stress test result last month but the home does not know the results. And her last cardiac catheterization was over 5 years ago. She has a closing specialist who does not come here. - Past Medical History Hx Hypertension: Yes Hx Congestive Heart Failure: Yes Hx Diabetes: Yes Hx Deep Vein Thrombosis: Yes Hx Psychiatric Treatment: Yes (Bipolar Depressed schizo affective, anxiety) Hx Asthma: Yes Additional medical history: Hypothyroidism, sleep apnea, DVT, Chronic Back pain, Gastritis, IBS. Hyperlipidemia, Ovarian cyst. Stubbs's palsey - Surgical History Hx Cholecystectomy: Yes Additional Surgical History: Tonsilectomy, Uterine Ablation, Hernia repair, D&C. 2 molar pulled. stiched to nasal cavity. Right Rotator cuff repair. Cholecystectomy. Patient states that she has mesh from hernia repair. - Family History Family history: no significant - Social History Smoking Status: Never Smoker Substance Use Type: None (Denies illicit drug) - Medications Home Medications: Home Medications Medication Instructions Recorded Confirmed Last Taken Type Ipratropium [place] 15 ml NS TID 07/20/20 08/30/20 Unknown History Doxepin [SINEquan] 25 mg PO QHS capsule 07/23/20 08/30/20 Unknown Rx Famotidine [Pepcid] 20 mg PO BID tablet 07/23/20 08/30/20 Unknown Rx Fluticasone [Flonase] 1 spray NS QDAY 30 Days bottle 07/23/20 08/30/20 08/28/20 Rx Furosemide [Lasix TAB] 40 mg PO BID #60 07/23/20 08/30/20 08/28/20 Rx Melatonin [Melatonin 5MG TAB] 5 mg PO HS #30 07/23/20 08/30/20 Unknown Rx Potassium Chloride [K-Dur] 20 meq PO QDAY #30 07/23/20 08/30/20 08/28/20 Rx Rivaroxaban [Xarelto] 10 mg PO QDAY #30 07/23/20 08/30/20 08/28/20 Rx Simvastatin 20 mg PO DAILY #30 07/23/20 08/30/20 08/28/20 Rx Sucralfate [Carafate] 10 ml PO QAM 30 Days 07/23/20 08/30/20 08/28/20 Rx cloNIDine [Catapres] 0.1 mg PO QHS tablet 07/23/20 08/30/20 08/28/20 Rx cloNIDine [Catapres] 0.1 mg PO QHS 30 Days 07/23/20 08/30/20 08/28/20 Rx clonazePAM [KlonoPIN] 0.5 mg PO BID PRN tablet 07/23/20 08/30/20 08/28/20 Rx propranoloL [Inderal] 10 mg PO BID #60 07/23/20 08/30/20 08/28/20 Rx verapamiL [Calan] 120 mg PO BID #60 07/23/20 08/30/20 08/28/20 Rx Benztropine [Cogentin] 0.5 mg PO BID #60 08/14/20 08/30/20 08/28/20 Rx Escitalopram [Lexapro] 10 mg PO QDAY #30 tablet 08/14/20 08/30/20 08/28/20 Rx Levothyroxine [Synthroid] 75 mcg PO QAM #30 08/14/20 08/30/20 08/28/20 Rx risperiDONE [RisperDAL] 1 mg PO BID #60 tablet 08/14/20 08/30/20 08/28/20 Rx OLANZapine [Zyprexa] 15 mg PO HS 08/30/20 08/30/20 08/28/20 History hydrOXYzine PAMOATE [Vistaril] 25 mg PO BID 08/30/20 08/30/20 08/28/20 History Omeprazole 40 mg PO QAM #30 09/01/20 Unknown Rx Docusate Sodium [Colace] 100 mg PO BID #30 capsule 09/07/20 Unknown Rx Docusate Sodium [Colace] 100 mg PO BID #30 capsule 10/04/20 Unknown Rx Review of Systems ROS: Stated complaint: CHEST PAIN Other details as noted in HPI Constitutional: denies: diaphoresis, fever Eyes: denies: eye pain ENT: denies: throat pain Respiratory: cough, shortness of breath Cardiovascular: chest pain Endocrine: no symptoms reported Gastrointestinal: nausea. denies: vomiting Genitourinary: denies: dysuria Musculoskeletal: denies: back pain Neurological: denies: headache Medications and Allergies Allergies Allergy/AdvReac Type Severity Reaction Status Date / Time acetaminophen [From Lortab] Allergy Shortness Verified 09/07/20 13:09 of Breath aspirin Allergy Hives Verified 09/07/20 13:09 divalproex sodium Allergy Rash Verified 09/07/20 13:09 [From Depakote] hydrocodone [From Lortab] Allergy Hives Verified 09/07/20 13:09 latex Allergy Rash Verified 09/07/20 13:09 nut - unspecified Allergy Shortness Verified 09/07/20 13:09 of Breath oxycodone Allergy Hives Verified 09/07/20 13:09 Penicillins Allergy Rash Verified 09/07/20 13:09 propoxyphene Allergy Rash Verified 09/07/20 13:09 [From Darvocet-N] Sulfa (Sulfonamide Allergy Rash Verified 09/07/20 13:09 Antibiotics) dairy Allergy Diarrhea Uncoded 02/12/19 14:15 napsylate Allergy Hives Uncoded 02/12/19 14:14 Home Medications Medication Instructions Recorded Confirmed Last Taken Type Famotidine [Pepcid] 20 mg PO BID tablet 07/23/20 11/10/20 Unknown Rx Fluticasone [Flonase] 1 spray NS QDAY 30 Days bottle 07/23/20 11/10/20 08/28/20 Rx Rivaroxaban [Xarelto] 10 mg PO QDAY #30 07/23/20 11/10/20 08/28/20 Rx Simvastatin 20 mg PO DAILY #30 07/23/20 11/10/20 08/28/20 Rx Benztropine [Cogentin] 0.5 mg PO BID #60 08/14/20 11/10/20 08/28/20 Rx ARIPiprazole [Abilify] 20 mg PO BID 11/10/20 11/10/20 Unknown History Albuterol Mdi (or & Nicu Only) 2 puff IH QID PRN 11/10/20 11/10/20 Unknown History [ProAir HFA Inhaler] OLANZapine [Zyprexa] 2 tab PO QHS 11/10/20 11/10/20 Unknown History Pantoprazole Sodium 1 tab PO DAILY 11/10/20 11/10/20 Unknown History Pregabalin [Lyrica] 75 mg PO BID 11/10/20 11/10/20 Unknown History Verapamil ER [Calan SR] 1 tab PO BID 11/10/20 11/10/20 Unknown History Active Meds: Active Medications Benztropine Mesylate (Benztropine 0.5 Mg Tab) 0.5 mg PO BID FOR[facility]LY [facility], [facility] Last Admin: 11/09/20 23:51 Dose: 0.5 mg Documented by: Clonazepam (Clonazepam 0.5 Mg Tab) 0.5 mg PO BID PRN PRN Reason: Anxiety Last Admin: 11/09/20 23:53 Dose: 0.5 mg Documented by: Clonidine HCl (Clonidine 0.1 Mg Tab) 0.1 mg PO QHS [facility], [facility]–1983 Docusate Sodium (Docusate Sodium 100 Mg Cap) 100 mg PO BID [facility], [facility]1983 Last Admin: 11/09/20 23:51 Dose: 100 mg Documented by: Doxepin HCl (Doxepin 25 Mg Cap) 25 mg PO QHS [facility], [facility]1983 Escitalopram Oxalate (Escitalopram 10 Mg Tab) 10 mg PO QDAY [facility], [facility]1983 Fluticasone Propionate (Fluticasone Propionate Nasal [place] 16 Gm) 50 mcg NS QDAY [facility], [facility]1983 Furosemide (Furosemide 40 Mg Tab) 40 mg PO BID@0600,1800 [facility], [facility] Last Admin: 11/10/20 05:06 Dose: 40 mg Documented by: Hydroxyzine Pamoate (Hydroxyzine Pamoate 25 Mg Cap) 25 mg PO BID [facility], [facility]1983 Ipratropium Callao (Ipratropium 0.06% 15 Ml Nasal [place]) 1 spray NS TID [facility]1983 Levothyroxine Sodium (Levothyroxine 75 Mcg Tab) 75 mcg PO QAM@0600 [facility] Last Admin: 11/10/20 05:06 Dose: 75 mcg Documented by: Melatonin (Melatonin 5 Mg Tab) 5 mg PO HS [facility] Morphine Sulfate (Morphine 2 Mg/1 Ml Inj) 2 mg IV Q4H PRN PRN Reason: Chest Pain Olanzapine (Olanzapine 7.5 Mg Tab) 15 mg PO QHS [facility] Pantoprazole Sodium (Pantoprazole 40 Mg Tab) 40 mg PO QDAC [facility], [facility]1983 Potassium Chloride (Potassium Chloride Er 20 Meq Tab) 20 meq PO QDAY [facility] Pravastatin Sodium (Pravastatin 40 Mg Tab) 40 mg PO QHS [facility] Propranolol HCl (Propranolol 10 Mg Tab) 10 mg PO BID [facility] Last Admin: 11/09/20 23:52 Dose: Not Given Documented by: Risperidone (Risperidone 1 Mg Tab) 1 mg PO BID [facility] Last Admin: 11/09/20 23:53 Dose: 1 mg Documented by: Rivaroxaban (Rivaroxaban 10 Mg Tab) 10 mg PO QDAY [facility], [facility]; Protocol Sucralfate (Sucralfate 1 Gm/10 Ml Oral Liqd) 1 gm PO QAM [facility] Verapamil HCl (Verapamil 120 Mg Tab) 120 mg PO BID [facility] Last Admin: 11/09/20 23:53 Dose: Not Given Documented by: Exam - Constitutional Vitals: Temp Pulse Resp BP Pulse Ox 98.0 F 55 L 18 126/78 97 11/10/20 03:56 11/10/20 03:56 11/10/20 03:56 11/10/20 03:56 11/10/20 03:56 General appearance: Present: no acute distress, well-nourished - EENT Eyes: Present: PERRL ENT: hearing intact, clear oral mucosa - Neck Neck: Present: supple, normal ROM - Respiratory Respiratory effort: normal Respiratory: bilateral: CTA - Cardiovascular Heart rate: 78 Heart Sounds: Present: S1 & S2. Absent: rub, click - Extremities Extremities: pulses symmetrical, No edema Peripheral Pulses: within normal limits - Abdominal General gastrointestinal: Present: soft, non-tender, non-distended, normal bowel sounds Female genitourinary: Present: normal - Integumentary Integumentary: Present: clear, warm, dry - Musculoskeletal Musculoskeletal: gait normal, strength equal bilaterally - Psychiatric Psychiatric: appropriate mood/affect, intact judgment & insight - Neurologic Neurologic: CNII-XII intact, moves all extremities HEART Score - HEART Score EKG: Non-specific Age: 45-65 Risk factors: 1-2 risk factors Troponin: Troponin T < 0.010 ng/mL (0.00-0.029) 11/10/20 04:53 Troponin: < normal limit - Critical Actions Critical Actions: 4-6 pts:12-16.6% risk of adverse cardiac event. Should be admitted Results - Labs CBC & Chem 7: 11/09/20 13:11 11/09/20 13:11 Labs: Laboratory Last Values WBC 7.1 K/mm3 (4.5-11.0) 11/09/20 13:11 RBC 4.39 M/mm3 (3.65-5.03) 11/09/20 13:11 Hgb 11.7 gm/dl (10.1-14.3) 11/09/20 13:11 Hct 36.1 % (30.3-42.9) 11/09/20 13:11 MCV 82 fl (79-97) 11/09/20 13:11 MCH 27 pg (28-32) L 11/09/20 13:11 MCHC 32 % (30-34) 11/09/20 13:11 RDW 14.8 % (13.2-15.2) 11/09/20 13:11 Plt Count 244 K/mm3 (140-440) 11/09/20 13:11 Lymph % (Auto) 22.1 % (13.4-35.0) 11/09/20 13:11 [place] % (Auto) 7.7 % (0.0-7.3) H 11/09/20 13:11 Eos % (Auto) 1.9 % (0.0-4.3) 11/09/20 13:11 Baso % (Auto) 0.7 % (0.0-1.8) 11/09/20 13:11 Lymph # (Auto) 1.6 K/mm3 (1.2-5.4) 11/09/20 13:11 [place] # (Auto) 0.5 K/mm3 (0.0-0.8) 11/09/20 13:11 Eos # (Auto) 0.1 K/mm3 (0.0-0.4) 11/09/20 13:11 Baso # (Auto) 0.0 K/mm3 (0.0-0.1) 11/09/20 13:11 Seg Neutrophils % 67.6 % (40.0-70.0) 11/09/20 13:11 Seg Neutrophils # 4.8 K/mm3 (1.8-7.7) 11/09/20 13:11 PT 17.1 Sec. (12.2-14.9) H 11/09/20 13:11 INR 1.40 (0.87-1.13) H 11/09/20 13:11 Sodium 138 mmol/L (137-145) 11/09/20 13:11 Potassium 3.8 mmol/L (3.6-5.0) 11/09/20 13:11 Chloride 102.7 mmol/L (98-107) 11/09/20 13:11 Carbon Dioxide 25 mmol/L (22-30) 11/09/20 13:11 Anion Gap 14 mmol/L 11/09/20 13:11 BUN 13 mg/dL (7-17) 11/09/20 13:11 Creatinine 0.7 mg/dL (0.6-1.2) 11/09/20 13:11 Estimated GFR > 60 ml/min 11/09/20 13:11 BUN/Creatinine Ratio 19 % 11/09/20 13:11 Glucose 99 mg/dL (65-100) 11/09/20 13:11 Calcium 8.2 mg/dL (8.4-10.2) L 11/09/20 13:11 Total Creatine Kinase 110 units/L (30-135) 11/09/20 13:11 CK-MB (CK-2) 1.3 ng/mL (0.0-4.0) 11/09/20 13:11 CK-MB (CK-2) Rel Index 1.1 (0-4) 11/09/20 13:11 Troponin T < 0.010 ng/mL (0.00-0.029) 11/10/20 04:53 Short CBC 11/09/20 Range/Units 13:11 WBC 7.1 (4.5-11.0) K/mm3 Hgb 11.7 (10.1-14.3) gm/dl Hct 36.1 (30.3-42.9) % Plt Count 244 (140-440) K/mm3 BMP 11/09/20 13:11 Sodium 138 Potassium 3.8 Chloride 102.7 Carbon Dioxide 25 BUN 13 Creatinine 0.7 Glucose 99 Calcium 8.2 L Cardiac Enzymes 11/09/20 11/10/20 11/10/20 Range/Units 13:11 02:22 04:53 Total Creatine Kinase 110 (30-135) units/L CK-MB (CK-2) 1.3 (0.0-4.0) ng/mL Troponin T < 0.010 < 0.010 < 0.010 (0.00-0.029) ng/mL - Imaging and Cardiology EKG: report reviewed (Normal sinus rhythm no acute ST-T wave changes) Chest x-ray: report reviewed (No acute findings) David/IV: Voiding Method External Female Catheter Assessment and Plan Advance Directives: Yes (Full code) VTE prophylaxis?: Chemical Plan of care discussed with patient/family: Yes - Patient Problems (1) Acute coronary syndrome Current Visit: Yes Status: Acute Plan to address problem: Chest pain work-up Serial troponins and Lexiscan in the morning (2) CHF (congestive heart failure) Current Visit: Yes Status: Chronic Qualifiers: Heart failure type: combined systolic and diastolic Plan to address problem: Mild Continue oral Lasix (3) Hypertension Current Visit: Yes Status: Chronic Qualifiers: Hypertension type: essential hypertension Qualified Code(s): I10 - [place] l (primary) hypertension Plan to address problem: Continue antihypertensives and adjust medications (4) Hypothyroidism Current Visit: Yes Status: Chronic Qualifiers: Hypothyroidism type: acquired Qualified Code(s): E03.9 - Hypothyroidism, unspecified Plan to address problem: Continue with Synthroid and check TSH (5) Asthma Current Visit: Yes Status: Inactive Qualifiers: Asthma severity: mild Plan to address problem: Albuterol MDI 2 puffs 4 times daily as needed (6) Depression Current Visit: Yes Status: Chronic Qualifiers: Depression Type: unspecified Qualified Code(s): F32.9 - Major depressive disorder, single episode, unspecified Plan to address problem: Continue antidepressants (7) Peripheral neuropathy Current Visit: Yes Status: Chronic Qualifiers: Peripheral neuropathy type: polyneuropathy, unspecified Qualified Code(s): G62.9 - Polyneuropathy, unspecified Plan to address problem: Continue gabapentin (8) Hyperlipidemia Current Visit: Yes Status: Chronic Qualifiers: Hyperlipidemia type: mixed hyperlipidemia Qualified Code(s): E78.2 - Mixed hyperlipidemia Plan to address problem: Continue statins (9) History of DVT (deep vein thrombosis) Current Visit: Yes Status: Chronic Plan to address problem: Patient on Xarelto for 5 years which may be stopped Patient advised to consult her PCP regarding stopping the Xarelto (10) DVT prophylaxis Current Visit: Yes Status: Acute Plan to address problem: On heparin and GI prophylaxis
[2020-11-10] MEDS ORDERED: REGADENOSON 0.4 MG/5 ML INJ IV ONE (07:55)
[2020-11-10] MEDS: IPRATROPIUM 0.06% NS SCH ×2 (08:00→15:43)
[2020-11-10] MEDS ORDERED: POTASSIUM CHLORIDE ER 20 MEQ TAB PO SCH (10:00)
[2020-11-10] MEDS ORDERED: ESCITALOPRAM 10 MG TAB PO SCH (10:00)
[2020-11-10] MEDS ORDERED: RIVAROXABAN 10 MG TAB PO SCH (10:00)
[2020-11-10] MEDS ORDERED: FLUTICASONE PROPIONATE NASAL SPRAY 16 GM NS SCH (10:00)
[2020-11-10] MEDS ORDERED: hydrOXYzine PAMOATE 25 MG CAP PO SCH (10:00)
[2020-11-10] MEDS ORDERED: FAMOTIDINE 20 MG TAB PO SCH (10:00)
[2020-11-10] MEDS ORDERED: NON-FORMULARY EACH (Omeprazole [Omeprazole] 40 MG Capsule.Dr) PO SCH (10:00)
[2020-11-10] MEDS ORDERED: SUCRALFATE 1 GM/10 ML ORAL LIQD PO SCH (10:00)
[2020-11-10] MEDS ORDERED: NON-FORMULARY EACH (Simvastatin [Simvastatin] 20 MG Tablet) PO SCH (10:00)
--- NOTE | 2020-11-10 14:25 | Discharge Summary ---
Providers - Providers Date of Admission: 11/09/20 17:18 Date of discharge: 11/10/20 Attending physician: HENRY KRUSE 11/10/20 12:34 Physical Therapy Evaluation and Treat [CONS] Routine Comment: Reason For Exam: debility Mode of Transport?: Wheelchair 11/10/20 12:35 Occupational Therapy Evaluate and Treat [CONS] Routine Comment: Reason For Exam: debility Hospitalization Condition: Fair Time spent for discharge: 32 min Core Measure Documentation - Palliative Care Palliative Care/ Comfort Measures: Not Applicable - Core Measures Any of the following diagnoses?: none Exam - Constitutional Vitals: Temp Pulse Resp BP Pulse Ox 98.2 F 60 18 121/61 92 11/10/20 11:44 11/10/20 11:44 11/10/20 11:44 11/10/20 11:44 11/10/20 11:44 General appearance: Present: no acute distress, well-nourished - EENT Eyes: Present: PERRL Plan Activity: advance as tolerated Diet: other (Cardiac diet) Additional Instructions: Advised to see your private fixture relamper, and private GI per schedule. If you have worsening symptoms contact MD or go to emergency room. You have a lot of home medications, and history of allergies to multiple medications, advised to check with primary care physician to review your home meds. Follow up with: PRIMARY CARE, [Referring] - 3-5 Days
[2020-11-10] MEDS: VERAPAMIL 120 MG TAB PO SCH (15:40)
[2020-11-10] MEDS: risperiDONE 1 MG TAB PO SCH (15:41)
[2020-11-10] MEDS: DOCUSATE SODIUM 100 MG CAP PO SCH (15:41)
[2020-11-10] MEDS: PROPRANOLOL 10 MG TAB PO SCH (15:42)
[2020-11-10] MEDS: BENZTROPINE 0.5 MG TAB PO SCH (15:42)
[2020-11-10 18:19] VITALS: BP 120/64
[2020-11-10] MEDS ORDERED: DOXEPIN 25 MG CAP PO SCH (22:00)
[2020-11-10] MEDS ORDERED: PRAVASTATIN 40 MG TAB PO SCH (22:00)
[2020-11-10] MEDS ORDERED: MELATONIN 5 MG TAB PO SCH (22:00)
[2020-11-10] MEDS ORDERED: cloNIDine 0.1 MG TAB PO SCH (22:00)
[2020-11-10] MEDS ORDERED: NON-FORMULARY EACH (Olanzapine [Zyprexa] 15 MG Tablet) PO SCH (22:00)
--- NOTE | 2020-11-12 08:40 | Electrocardiograph Report ---
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
== END 2020-11-10 19:35 | disposition home or self-care (01) ==
LOC: ED 12:49 → INTOOBSV 17:18 → 4A 17:18
PROVIDERS: ADMIT Internal Medicine; ATTEND Internal Medicine
DX: I24.9 Acute ischemic heart disease, unspecified (principal); I11.0 Hypertensive heart disease with heart failure; I50.9 Heart failure, unspecified; E03.9 Hypothyroidism, unspecified; J45.909 Unspecified asthma, uncomplicated; K29.70 Gastritis, unspecified, without bleeding; K58.9 Irritable bowel syndrome, unspecified; F32.9 Major depressive disorder, single episode, unspecified; G62.9 Polyneuropathy, unspecified; G47.30 Sleep apnea, unspecified; G51.0 Bell's palsy; E11.9 Type 2 diabetes mellitus without complications; E78.2 Mixed hyperlipidemia; N83.209 Unspecified ovarian cyst, unspecified side; Z86.718 Personal history of other venous thrombosis and embolism; Z90.49 Acquired absence of other specified parts of digestive tract; Z98.890 Other specified postprocedural states
CPT/HCPCS: 36415; 71045; 80048; 82550; 82553; 84484; 85025; 85610; 93005; 96374; 96375; 96376; 99285; G0378; J2270; J2405; J3010; Q0177

== ENCOUNTER 2021-01-03 11:19 | Emergency (ER) | payer MEDICARE ==
[2021-01-03 11:41] VITALS: BP 128/77
--- NOTE | 2021-01-03 12:08 | Event Note ---
ED Screening Note Date of service: 01/03/21 Time: 12:05 ED Screening Note: 50-year-old female presents to the ER today with complaints of shortness of breath more so with exertion, cough, wheezing, increasing extremity swelling and dizziness. Onset of symptoms was about 1 week ago She states that she just started having pain in her right rib area while in the ER today otherwise no chest pain prior to that Past medical history significant for morbid obesity, congestive heart failure currently on Lasix, diabetes, hyperlipidemia, hypertension, thyroid disease, DVT currently on Xarelto Patient also complains of abnormal vaginal bleeding which started today. She states that she has not had a menstrual cycle since October 2019. She is scheduled to see [facility] in january This initial assessment/diagnostic orders/clinical plan/treatment(s) is/are subject to change based on patients health status, clinical progression and re- assessment by fellow clinical providers in the ED. Further treatment and workup at subsequent clinical providers discretion. Patient/guardian urged not to elope from the ED as their condition may be serious if not clinically assessed and managed. Initial orders include: Chest pain order set
[2021-01-03 12:55] LABS: Basophils # (Auto) 0.1 K/mm3 (0.0-0.1); Basophils % (Auto) 0.8 % (0.0-1.8); Eosinophils # (Auto) 0.2 K/mm3 (0.0-0.4); Eosinophils % (Auto) 2.6 % (0.0-4.3); Hematocrit 37.3 % (30.3-42.9); Hemoglobin 12.6 gm/dl (10.1-14.3); Lymphocytes # (Auto) 1.7 K/mm3 (1.2-5.4); Lymphocytes % (Auto) 26.5 % (13.4-35.0); Mean Corpuscular HGB Conc 34 % (30-34); Mean Corpuscular Volume 81 fl (79-97); Monocytes # (Auto) 0.5 K/mm3 (0.0-0.8); Monocytes % (Auto) 7.7 % (0.0-7.3); Platelet Count 262 K/mm3 (140-440); Red Cell Distribution Width 15.2 % (13.2-15.2)
[2021-01-03 13:03] LABS: INR 1.5 (0.87-1.13)
[2021-01-03 13:15] LABS: Alanine Aminotransferase 22 units/L (7-56); Albumin 3.8 g/dL (3.9-5); Blood Urea Nitrogen 11 mg/dL (7-17); Calcium 8.6 mg/dL (8.4-10.2); Hemolysis Index 3
[2021-01-03 13:42] LABS: BUN/Creatinine Ratio 18
--- NOTE | 2021-01-03 14:10 | XRay Report ---
CHEST 2 VIEWS INDICATION / CLINICAL INFORMATION: Dyspnea. COMPARISON: 11/09/2020. FINDINGS: SUPPORT DEVICES: None. HEART / MEDIASTINUM: No significant abnormality. LUNGS / PLEURA: Minimal patchy pulmonary opacities in the lung bases favoring atelectasis. No pneumot horax. ADDITIONAL FINDINGS: No significant additional findings. IMPRESSION: 1. Mild bibasilar atelectasis. No additional cardiopulmonary abnormality. Signer Name: Giovany Anders MD Signed: 01/03/2021 2:05 PM Workstation Name: [id number]
--- NOTE | 2021-01-03 18:22 | Emergency Department Report ---
ED General Adult HPI - General Chief complaint: Medical Clearance Stated complaint: medical clearance PUI?: No Time Seen by Provider: 01/03/21 18:02 Source: patient, EMS ( EMS documentation not available at time of chart dictation ), RN notes reviewed, old records reviewed Mode of arrival: Ambulatory Limitations: No Limitations - History of Present Illness Initial comments: The patient was evaluated in the emergency department for symptoms described in the history of present illness. He/she was evaluated in the context of the global COVID-19 pandemic, which necessitated consideration that the patient might be at risk for infection with the virus that causes COVID-19. Institutional protocols and algorithms that pertain to the evaluation of patients at risk for COVID-19 are in a state of rapid change based on informati on released by regulatory bodies including the CDC and federal and state organizations. These policies and algorithms were followed during the patient's care in the emergency department. Please note that these policies, procedures and recommendations changed on a rapid basis. This is a 50-year-old female. I have evaluated this patient in the past. Past medical history includes morbid obesity, GERD, "congestive heart failure", recent EF 50 to 55%, history of DVT, on Xarelto, depression, hypothyroidism. The patient is presenting to the emergency room, after she reports that her outpatient broomcorn scraper, Dr. Pulido, advised her to present to the emergency room because of abnormal laboratory studies. Patient reports unintentional 17 pound gain In the past week or so, and reports that she had outpatient laboratory studies which demonstrated "something stressing out my kidneys." The patient denies headache, neck pain, chest pain abdominal pain. She has chronic shortness of breath which is neither new, worsened or different. She denies hematemesis and bright red blood per rectum. She thinks she is experienced hematuria, or possibly vaginal bleeding she is not sure, and also "I have assisted down there." Patient endorses a distant history of endometrial ablation. She believes that she is postmenopausal, "but I am not sure." The patient also reports that she is "getting checked out", for obstructive sleep apnea as an outpatient. She reports poor sleep hygiene at night, reports only 3 to 4 hours of sleep each evening, and reports vivid dreams and occasionally nightmares. She denies restless legs. She endorses compliance with her outpatient medications. She denies travel, surgery, immobilization. She subjectively feels like her legs are more swollen than usual. She denies chest pain at this time. Please note that this patient was admitted to this hospital October 2020, she had a nuclear stress test October 29, 2020, which is documented as being negative for acute findings. -: Gradual, days(s) Location: left, right, lower extremity Quality: aching Consistency: constant Improves with: rest Worsens with: movement - Related Data Home Medications Medication Instructions Recorded Confirmed Last Taken ARIPiprazole [Abilify] 20 mg PO BID 11/10/20 11/10/20 Unknown Albuterol Mdi (or & Nicu Only) 2 puff IH QID PRN 11/10/20 11/10/20 Unknown [ProAir HFA Inhaler] OLANZapine [Zyprexa] 2 tab PO QHS 11/10/20 11/10/20 Unknown Pantoprazole Sodium 1 tab PO DAILY 11/10/20 11/10/20 Unknown Pregabalin 75 mg PO BID 11/10/20 11/10/20 Unknown Verapamil ER [Calan SR] 1 tab PO BID 11/10/20 11/10/20 Unknown Previous Rx's Medication Instructions Recorded Last Taken Type Famotidine [Pepcid] 20 mg PO BID tablet 07/23/20 Unknown Rx Fluticasone [Flonase] 1 spray NS QDAY 30 Days bottle 07/23/20 08/28/20 Rx Rivaroxaban [Xarelto] 10 mg PO QDAY #30 07/23/20 08/28/20 Rx Simvastatin 20 mg PO DAILY #30 07/23/20 08/28/20 Rx Benztropine [Cogentin] 0.5 mg PO BID #60 08/14/20 08/28/20 Rx Docusate Sodium [Colace CAP] 100 mg PO BID capsule 11/10/20 Unknown Rx Furosemide [Lasix TAB] 40 mg PO BID@0600,1800 tablet 11/10/20 Unknown Rx Levothyroxine [Synthroid] 75 mcg PO QAM@0600 tablet 11/10/20 Unknown Rx Melatonin [Melatonin 5MG TAB] 5 mg PO HS tablet 11/10/20 Unknown Rx risperiDONE [RisperDAL] 1 mg PO BID tablet 11/10/20 Unknown Rx Allergies Allergy/AdvReac Type Severity Reaction Status Date / Time acetaminophen [From Lortab] Allergy Shortness Verified 09/07/20 13:09 of Breath aspirin Allergy Hives Verified 09/07/20 13:09 divalproex sodium Allergy Rash Verified 09/07/20 13:09 [From Depakote] hydrocodone [From Lortab] Allergy Hives Verified 09/07/20 13:09 latex Allergy Rash Verified 09/07/20 13:09 nut - unspecified Allergy Shortness Verified 09/07/20 13:09 of Breath oxycodone Allergy Hives Verified 09/07/20 13:09 Penicillins Allergy Rash Verified 09/07/20 13:09 propoxyphene Allergy Rash Verified 09/07/20 13:09 [From Darvocet-N] Sulfa (Sulfonamide Allergy Rash Verified 09/07/20 13:09 Antibiotics) dairy Allergy Diarrhea Uncoded 02/12/19 14:15 napsylate Allergy Hives Uncoded 02/12/19 14:14 ED Review of Systems ROS: Stated complaint: CATHY Other details as noted in HPI Constitutional: other (Denies loss of taste and smell). denies: fever ENT: denies: congestion Respiratory: shortness of breath (Chronic shortness of breath) Cardiovascular: denies: chest pain Gastrointestinal: denies: abdominal pain, nausea, vomiting, hematemesis, melena, hematochezia Genitourinary: hematuria Musculoskeletal: myalgia Neurological: weakness Psychiatric: anxiety Hematological/Lymphatic: as per HPI ED Past Medical Hx - Past Medical History Previous Medical History?: Yes Hx Hypertension: Yes Hx Congestive Heart Failure: Yes Hx Diabetes: Yes Hx Deep Vein Thrombosis: Yes Hx Psychiatric Treatment: Yes (Bipolar Depressed schizo affective, anxiety) Hx Asthma: Yes Additional medical history: Hypothyroidism, sleep apnea, DVT, Chronic Back pain, Gastritis, IBS. Hyperlipidemia, Ovarian cyst. Stubbs's palsey - Surgical History Past Surgical History?: Yes Hx Cholecystectomy: Yes Additional Surgical History: Tonsilectomy, Uterine Ablation, Hernia repair, D&C. 2 molar pulled. stiched to nasal cavity. Right Rotator cuff repair. Cholecystectomy. Patient states that she has mesh from hernia repair. - Social History Smoking Status: Never Smoker Substance Use Type: Prescribed - Medications Home Medications: Home Medications Medication Instructions Recorded Confirmed Last Taken Type Famotidine [Pepcid] 20 mg PO BID tablet 07/23/20 11/10/20 Unknown Rx Fluticasone [Flonase] 1 spray NS QDAY 30 Days bottle 07/23/20 11/10/20 08/28/20 Rx Rivaroxaban [Xarelto] 10 mg PO QDAY #30 07/23/20 11/10/20 08/28/20 Rx Simvastatin 20 mg PO DAILY #30 07/23/20 11/10/20 08/28/20 Rx Benztropine [Cogentin] 0.5 mg PO BID #60 08/14/20 11/10/20 08/28/20 Rx ARIPiprazole [Abilify] 20 mg PO BID 11/10/20 11/10/20 Unknown History Albuterol Mdi (or & Nicu Only) 2 puff IH QID PRN 11/10/20 11/10/20 Unknown History [ProAir HFA Inhaler] Docusate Sodium [Colace CAP] 100 mg PO BID capsule 11/10/20 Unknown Rx Furosemide [Lasix TAB] 40 mg PO BID@0600,1800 tablet 11/10/20 Unknown Rx Levothyroxine [Synthroid] 75 mcg PO QAM@0600 tablet 11/10/20 Unknown Rx Melatonin [Melatonin 5MG TAB] 5 mg PO HS tablet 11/10/20 Unknown Rx OLANZapine [Zyprexa] 2 tab PO QHS 11/10/20 11/10/20 Unknown History Pantoprazole Sodium 1 tab PO DAILY 11/10/20 11/10/20 Unknown History Pregabalin 75 mg PO BID 11/10/20 11/10/20 Unknown History Verapamil ER [Calan SR] 1 tab PO BID 11/10/20 11/10/20 Unknown History risperiDONE [RisperDAL] 1 mg PO BID tablet 11/10/20 Unknown Rx ED Physical Exam - General Limitations: No Limitations General appearance: alert, anxious, obese - Head Head exam: Present: atraumatic, normocephalic - Eye Eye exam: Present: normal appearance, EOMI - ENT ENT exam: Present: normal exam, normal orophraynx, mucous membranes moist, normal external ear exam - Neck Neck exam: Present: normal inspection, full ROM. Absent: tenderness, meningismus - Respiratory Respiratory exam: Present: normal lung sounds bilaterally. Absent: respiratory distress, wheezes, rales, rhonchi, stridor, decreased breath sounds - Cardiovascular Cardiovascular Exam: Present: regular rate, normal rhythm, normal heart sounds. Absent: bradycardia, tachycardia, irregular rhythm, systolic murmur, diastolic murmur, rubs, gallop - GI/Abdominal GI/Abdominal exam: Present: soft. Absent: distended, tenderness, guarding, rebound, rigid, pulsatile mass - External exam: Present: normal external exam, lesions (On the left vaginal introitus/labia, nontender Bartholin cyst is noted.) Speculum exam: Present: normal speculum exam, other (Chaperoned by nurse Fernanda Slade). Absent: vaginal bleeding - Extremities Exam Extremities exam: Present: normal inspection, full ROM, pedal edema (2+ edema in the bilateral lower extremities), other (2+ pulses noted in the bilateral upper and lower extremities. There is no palpable cord. negative Homans sign. Muscular compartments are soft. The pelvis is stable.). Absent: calf tenderness - Back Exam Back exam: Present: normal inspection, full ROM. Absent: tenderness, CVA tenderness (R), CVA tenderness (L), paraspinal tenderness, vertebral tenderness - Neurological Exam Neurological exam: Present: alert, normal gait, other (No facial droop. Tongue midline. Extraocular movements intact bilaterally. Facial sensation intact to light touch in V1, V2, V3 distribution bilaterally. 5 and a 5 strength in 4 extremities. Sensation intact to light touch in 4 extremities.). Absent: motor sensory deficit - Psychiatric Psychiatric exam: Present: anxious - Skin Skin exam: Present: warm, dry, intact, normal color. Absent: rash ED Course Vital Signs 01/03/21 01/03/21 11:40 18:30 Temperature 98.6 F Pulse Rate 74 Respiratory 20 Rate Blood Pressure 128/77 O2 Sat by Pulse 95 Oximetry O2 Sat by Pulse 98 Oximetry [ Digit-Finger] - Reevaluation(s) Reevaluation #1: 01/03/21 18:23 Differential diagnosis, including but not limited to: Laboratory error, obesity, deconditioning, dependent edema, anticoagulated, obstructive sleep apnea Assessment and plan: 50-year-old female who presents to the emergency room after indicating that she was being sent here by her broomcorn scraper because of abnormal laboratory tests, i.e., abnormal renal function. Renal function today appears to be within normal limits. Lungs are clear to auscultation bilaterally. She is saturating at 98% on room air. Chest x-ray is clear. Patient endorses compliance with her medications. She did endorse either vaginal bleeding, questionable hematuria and vaginal cyst. We will perform a gynecologic examination to evaluate. Urinalysis is pending at this time. She is systemically anticoagulated, endorses compliance with Xarelto, denies travel, surgery, immobilization. She is not currently tachycardic, tachypneic or hypoxic. I do not appreciate palpable cord or abnormality that is asymmetric in her lower extremities. Patient counseled on need to remain compliant with outpatient medications, fo llow-up with her outpatient broomcorn scraper, follow-up with outpatient sleep specialist, for sleep study, diet, exercise, lose weight, consume low-salt diet, and to follow-up with an outpatient radiator specialist to exclude gynecologic cancer, tumor, malignancy. Patient does not appear to have an emergent medical condition at this time which would require admission/hospitalization. Reevaluation #2: 01/03/21 18:43 Additional history obtained. Patient states she is on day 2 or 3 of Macrobid for "urinary tract infection", that was diagnosed by her primary care doctor, Dr. Watkins. Gynecologic examination she appears to have a Bartholin cyst on the left side, at approximately 5:00, without any redness, pus, streaking or tenderness. No vaginal bleeding noted on my gynecologic examination. Patient suitable for discharge with outpatient follow-up at this time. - Pulse Oximetry Interpretation Digit-Finger Initial Pulse Oximetry Readin O2 Sat by Pulse Oximetry: 98 Actions Taken: none ED Medical Decision Making - Lab Data Result diagrams: 01/03/21 12:21 01/03/21 12:21 Vital Signs 01/03/21 11:40 Temperature 98.6 F Pulse Rate 74 Respiratory 20 Rate Blood Pressure 128/77 O2 Sat by Pulse 95 Oximetry Lab Results 01/03/21 01/03/21 01/03/21 Range/Units 12:21 12:21 12:21 WBC 6.3 (4.5-11.0) K/mm3 RBC 4.60 (3.65-5.03) M/mm3 Hgb 12.6 (10.1-14.3) gm/dl Hct 37.3 (30.3-42.9) % MCV 81 (79-97) fl MCH 27 L (28-32) pg MCHC 34 (30-34) % RDW 15.2 (13.2-15.2) % Plt Count 262 (140-440) K/mm3 Lymph % (Auto) 26.5 (13.4-35.0) % Ada % (Auto) 7.7 H (0.0-7.3) % Eos % (Auto) 2.6 (0.0-4.3) % Baso % (Auto) 0.8 (0.0-1.8) % Lymph # (Auto) 1.7 (1.2-5.4) K/mm3 Ada # (Auto) 0.5 (0.0-0.8) K/mm3 Eos # (Auto) 0.2 (0.0-0.4) K/mm3 Baso # (Auto) 0.1 (0.0-0.1) K/mm3 Seg Neutrophils % 62.4 (40.0-70.0) % Seg Neutrophils # 4.0 (1.8-7.7) K/mm3 PT 18.0 H (12.2-14.9) Sec. INR 1.50 H (0.87-1.13) APTT 44.0 H (24.2-36.6) Sec. Sodium 139 (137-145) mmol/L Potassium 4.0 (3.6-5.0) mmol/L Chloride 102.0 (98-107) mmol/L Carbon Dioxide 25 (22-30) mmol/L Anion Gap 16 mmol/L BUN 11 (7-17) mg/dL Creatinine 0.6 (0.6-1.2) mg/dL Estimated GFR > 60 ml/min BUN/Creatinine Ratio 18 % Glucose 85 (65-100) mg/dL Calcium 8.6 (8.4-10.2) mg/dL Magnesium 2.20 (1.7-2.3) mg/dL Total Bilirubin 0.30 (0.1-1.2) mg/dL AST 24 (5-40) units/L ALT 22 (7-56) units/L Alkaline Phosphatase 114 (35-129) units/L Troponin T < 0.010 (0.00-0.029) ng/mL NT-Pro-B Natriuret Pep (0-450) pg/mL Total Protein 7.0 (6.3-8.2) g/dL Albumin 3.8 L (3.9-5) g/dL Albumin/Globulin Ratio 1.2 % Lipase 55 (13-60) units/L HCG, Qual (Negative) 01/03/21 01/03/21 01/03/21 Range/Units 12:21 12:21 15:15 WBC (4.5-11.0) K/mm3 RBC (3.65-5.03) M/mm3 Hgb (10.1-14.3) gm/dl Hct (30.3-42.9) % MCV (79-97) fl MCH (28-32) pg MCHC (30-34) % RDW (13.2-15.2) % Plt Count (140-440) K/mm3 Lymph % (Auto) (13.4-35.0) % Ada % (Auto) (0.0-7.3) % Eos % (Auto) (0.0-4.3) % Baso % (Auto) (0.0-1.8) % Lymph # (Auto) (1.2-5.4) K/mm3 Ada # (Auto) (0.0-0.8) K/mm3 Eos # (Auto) (0.0-0.4) K/mm3 Baso # (Auto) (0.0-0.1) K/mm3 Seg Neutrophils % (40.0-70.0) % Seg Neutrophils # (1.8-7.7) K/mm3 PT (12.2-14.9) Sec. INR (0.87-1.13) APTT (24.2-36.6) Sec. Sodium (137-145) mmol/L Potassium (3.6-5.0) mmol/L Chloride (98-107) mmol/L Carbon Dioxide (22-30) mmol/L Anion Gap mmol/L BUN (7-17) mg/dL Creatinine (0.6-1.2) mg/dL Estimated GFR ml/min BUN/Creatinine Ratio % Glucose (65-100) mg/dL Calcium (8.4-10.2) mg/dL Magnesium (1.7-2.3) mg/dL Total Bilirubin (0.1-1.2) mg/dL AST (5-40) units/L ALT (7-56) units/L Alkaline Phosphatase (35-129) units/L Troponin T < 0.010 (0.00-0.029) ng/mL NT-Pro-B Natriuret Pep 202.5 (0-450) pg/mL Total Protein (6.3-8.2) g/dL Albumin (3.9-5) g/dL Albumin/Globulin Ratio % Lipase (13-60) units/L HCG, Qual Negative (Negative) - EKG Data -: EKG Interpreted by Ak EKG shows normal: sinus rhythm Rate: normal - EKG Data When compared to previous EKG there are: no significant change 01/03/21 18:23 EKG interpreted at 12: 21 Sinus rhythm, 68 bpm, left anterior fascicular block, low voltage, poor R wave progression. Intervals within normal limits. This is an abnormal EKG. This is not a STEMI. Unchanged from prior EKG from October 2020 - Radiology Data Radiology results: pending, report reviewed, image reviewed [facility] [address] [place] [address] XRay Report Signed Patient: ANETA LIVE MR#: [id number] : 1970 Acct:[id number] Age/Sex: 50 / F ADM Date: 01/03/21 Loc: ED Attending Dr: Ordering Physician: NEVILLE GIANG Date of Service: 01/03/21 Procedure(s): XR chest routine 2V Accession Number(s): [id number] cc: NEVILLE GIANG Fluoro Time In Minutes: CHEST 2 VIEWS INDICATION / CLINICAL INFORMATION: Dyspnea. COMPARISON: 11/09/2020. FINDINGS: SUPPORT DEVICES: None. HEART / MEDIASTINUM: No significant abnormality. LUNGS / PLEURA: Minimal patchy pulmonary opacities in the lung bases favoring atelectasis. No pneumothorax. ADDITIONAL FINDINGS: No significant additional findings. IMPRESSION: 1. Mild bibasilar atelectasis. No additional cardiopulmonary abnormality. Signer Name: Adrien Anders MD Signed: 01/03/2021 2:05 PM Workstation Name: [id number] Transcribed By: SS Dictated By: ADRIEN ANDERS Electronically Authenticated By: ADRIEN ANDERS Signed Date/Time: 01/03/21 1405 DD/ 140 Critical care attestation.: If time is entered above; I have spent that time in minutes in the direct care of this critically ill patient, excluding procedure time. ED Disposition Clinical Impression: BMI 50.0-59.9, adult, Anticoagulated, Encounter for medical screening examination, Bartholin cyst, History of urinary tract infection Disposition: TO HOME OR SELFCARE Is pt being admited?: No Does the pt Need Aspirin: No Condition: Good Instructions: Bartholin's Cyst Additional Instructions: Please continue current outpatient medications. Please consume a cardiac family low-salt diet. Recommend that patient continue current outpatient medications, diet, exercise, and attempt aggressive weight loss. Patient may have a component of obstructive sleep apnea, which may be causing her symptoms. She should follow-up with an outpatient sleep specialist/powerplant operator, such as Dr. Ruth Al, for outpatient sleep study within the next month. Please continue current outpatient Macrobid, for history of urinary tract infection. With patient's articulated complaint of vaginal bleeding, she should follow-up with an PATHOLOGY TRANSCRIPTIONIST doctor, such as Dr. Whitlock, within the next month, to make sure that vaginal bleeding is not coming from gynecologic tumor, cancer, malignancy. Patient was found to have a noninfected Bartholin cyst on the left aspect of the vagina. This can be electively followed up by your outpatient PATHOLOGY TRANSCRIPTIONIST doctor. Patient may also apply warm compresses as as needed for this. Patient should follow-up with her outpatient primary care doctor or broomcorn scraper within the next week for repeat checkup/evaluation. Patient had laboratory studies, x-ray, EKG and a physical exam today, which were essentially unchanged from prior, did not specifically demonstrate any evidence of water on the lungs, or abnormal kidney function/renal function. In addition, laboratory tests and EKG demonstrated no acute change from prior, and no indication of acute heart attack. Please return to the emergency room right away with new pain, worsening pain, migration of pain, projectile vomiting, change in mental status, confusion, asad bility to tolerate liquid feeds, new, worsened or different symptoms not present on the initial emergency room evaluation. Referrals: LUIS WATKINS MD [Primary Care Provider] - 3-5 Days ESTEBAN WHITLOCK MD [Staff Physician] - 3-5 Days GREGORIA AL MD [Staff Physician] - 3-5 Days Forms: Work/School Release Form(ED)
[2021-01-03 19:19] LABS: Bacteria,Urine 1+ /HPF (Negative); Bilirubin,Urine NEG (Negative); Blood,Urine NEG (Negative); Color,Urine Straw (Yellow); Protein,Urine <15 mg/dL mg/dL (Negative); Urobilinogen,Urine < 2.0 mg/dL (<2.0); WBC,Urine < 1.0 /HPF (0.0-6.0)
--- NOTE | 2021-01-06 10:13 | Electrocardiograph Report ---
[facility] Test Date: 2021-01-03 Test Time: 12:13:25 Pat Name: ANETA LIVE Department: Room: Gender: F E Tailer: GABRIEL : 1970 Requested By: NEVILLE GIANG Order Number: [id number] Reading MD: Chuck Valero Measurements Intervals [place] Rate: 60 P: 25 MI: 174 QRS: -25 QRSD: 90 T: 23 QT: 428 QTc: 429 Interpretive Statements Sinus rhythm Low voltage, precordial leads Compared to ECG 11/09/2020 13:14:07 No significant change noted. Electronically Signed On 01-06-2021 10:13:09 EDT by Chuck Valero
== END 2021-01-03 19:29 | disposition home or self-care (01) ==
LOC: ED 11:19
DX: N75.0 Cyst of Bartholin's gland (principal); N39.0 Urinary tract infection, site not specified; Z00.00 Encounter for general adult medical examination without abnormal findings; Z68.43 Body mass index [BMI] 50.0-59.9, adult; I11.0 Hypertensive heart disease with heart failure; I50.9 Heart failure, unspecified; E11.9 Type 2 diabetes mellitus without complications; J45.909 Unspecified asthma, uncomplicated; Z98.890 Other specified postprocedural states; Z79.899 Other long term (current) drug therapy; Z88.8 Allergy status to other drugs, medicaments and biological substances
CPT/HCPCS: 36415; 71046; 80053; 81001; 83690; 83735; 83880; 84443; 84484; 84703; 85025; 85610; 85730; 93005

== ENCOUNTER 2021-01-24 14:47 | Emergency (ER) | payer MEDICARE ==
[2021-01-24 16:14] LABS: Bilirubin,Urine NEG (Negative); Blood,Urine NEG (Negative); Color,Urine Yellow (Yellow); Protein,Urine <15 mg/dL mg/dL (Negative); Urobilinogen,Urine < 2.0 mg/dL (<2.0)
--- NOTE | 2021-01-24 19:16 | Event Note ---
ED Screening Note Date of service: 01/24/21 Time: 19:14 ED Screening Note: PT PRESENTS TO ED C/O NAUSEA, DIARRHEA, ABD PAIN AND ALSO CONCERN THAT SHE MIGHT BE IN CHF EXAC BECAUSE SHE HAS HAD INCREASE SWELLING, WEIGHT GAIN, AND SOB. SHE STATES SHE IS NOT FEELING WELL AND FELL LIKE SHE WAS GOING TO PASS OUT TODAY STATES SHE HAS BEEN ON DOXYCYLINE FOR "FLU". SHE STATES SHE HAS ONE DAY LEFT. SHE REPORTS 100.5 TODAY PMHX: CHF, GERD, IBS, ASTHMA, HTN, DM This initial assessment/diagnostic orders/clinical plan/treatment(s) is/are subject to change based on patients health status, clinical progression and re- assessment by fellow clinical providers in the ED. Further treatment and workup at subsequent clinical providers discretion. Patient/guardian urged not to elope from the ED as their condition may be serious if not clinically assessed and managed. Initial orders include: LABS/CXR/EKG
--- NOTE | 2021-01-24 20:00 | XRay Report ---
CHEST 2 VIEWS INDICATION / CLINICAL INFORMATION: SOB. COMPARISON: Chest radiograph 01/03/2021 FINDINGS: SUPPORT DEVICES: None. HEART / MEDIASTINUM: No significant abnormality. LUNGS / PLEURA: Minimal left basilar subsegmental atelectasis. No focal pulmonary consolidation. No p leural effusion. No pneumothorax. ADDITIONAL FINDINGS: No significant additional findings. IMPRESSION: 1. No acute findings and no significant change from prior. Signer Name: Rosalee Salas MD Signed: 01/24/2021 7:55 PM Workstation Name: [id number]
[2021-01-24 20:06] LABS: Basophils # (Auto) 0.1 K/mm3 (0.0-0.1); Basophils % (Auto) 0.9 % (0.0-1.8); Eosinophils # (Auto) 0.2 K/mm3 (0.0-0.4); Eosinophils % (Auto) 1.9 % (0.0-4.3); Hematocrit 38.8 % (30.3-42.9); Hemoglobin 12.9 gm/dl (10.1-14.3); Lymphocytes # (Auto) 2.5 K/mm3 (1.2-5.4); Lymphocytes % (Auto) 25.7 % (13.4-35.0); Mean Corpuscular HGB Conc 33 % (30-34); Mean Corpuscular Volume 81 fl (79-97); Monocytes # (Auto) 0.7 K/mm3 (0.0-0.8); Monocytes % (Auto) 7.2 % (0.0-7.3); Platelet Count 298 K/mm3 (140-440); Red Blood Count 4.78 M/mm3 (3.65-5.03); Red Cell Distribution Width 15.2 % (13.2-15.2)
[2021-01-24 20:30] LABS: Alanine Aminotransferase 36 units/L (7-56); Albumin 4.2 g/dL (3.9-5); BUN/Creatinine Ratio 14; Blood Urea Nitrogen 10 mg/dL (7-17); Calcium 8.9 mg/dL (8.4-10.2); Hemolysis Index 3
--- NOTE | 2021-01-24 22:13 | Emergency Department Report ---
ED N/V/D HPI - General Chief complaint: Abdominal Pain Stated complaint: DIARRHEA/FEVER/NAUSEA PUI?: No Time Seen by Provider: 01/24/21 21:51 Source: patient Mode of arrival: Ambulatory Limitations: No Limitations - History of Present Illness Initial comments: Patient is a 50-year-old female that presents emergency room with complaints of nausea, diarrhea, fever. Patient states the symptoms started at 6 AM this morning. Patient states she has had diarrhea 5 times. Patient states that her fever was 100.5 and she took Tylenol responded well. Patient states that she has had nausea without vomiting. Patient denies blood in her diarrhea. Patient denies chest pain. Patient states that she is on doxy for upper respiratory infection that her primary care placed her on. Patient states she only has 1 day left. Patient states sometimes she gets diarrhea from doxy. Patient states she has Shortness of breath at times. Patient states her shortness of breath only with exertion. Patient states she has a history of CHF. Patient denies chest pain. Patient denies blurry vision. Patient denies headache. Patient denies recent travel. Patient denies recent international travel. Patient denies exposure to the novel coronavirus. Patient denies sick contacts. Patient denies cough. Patient denies loss of smell. Patient denies coming in contact with anybody with symptoms of the novel coronavirus. MD complaint: nausea, diarrhea -: Sudden Description of Diarrhea: water Associated Abdominal Pain: No Severity: severe Pain Scale: 0 Consistency: constant Improves with: rest Worsens with: eating, bowel movement Associated Symptoms: shortness of breath. denies: myalgias, chest pain, cough, diaphoresis, fever/chills, headaches, loss of appetite, malaise, rash, dysuria, syncope, weakness - Related Data Home Medications Medication Instructions Recorded Confirmed Last Taken ARIPiprazole [Abilify] 20 mg PO BID 11/10/20 11/10/20 Unknown Albuterol Mdi (or & Nicu Only) 2 puff IH QID PRN 11/10/20 11/10/20 Unknown [ProAir HFA Inhaler] OLANZapine [Zyprexa] 2 tab PO QHS 11/10/20 11/10/20 Unknown Pantoprazole Sodium 1 tab PO DAILY 11/10/20 11/10/20 Unknown Pregabalin 75 mg PO BID 11/10/20 11/10/20 Unknown Verapamil ER [Calan SR] 1 tab PO BID 11/10/20 11/10/20 Unknown Previous Rx's Medication Instructions Recorded Last Taken Type Famotidine [Pepcid] 20 mg PO BID tablet 07/23/20 Unknown Rx Fluticasone [Flonase] 1 spray NS QDAY 30 Days bottle 07/23/20 08/28/20 Rx Rivaroxaban [Xarelto] 10 mg PO QDAY #30 07/23/20 08/28/20 Rx Simvastatin 20 mg PO DAILY #30 07/23/20 08/28/20 Rx Benztropine [Cogentin] 0.5 mg PO BID #60 08/14/20 08/28/20 Rx Docusate Sodium [Colace CAP] 100 mg PO BID capsule 11/10/20 Unknown Rx Furosemide [Lasix TAB] 40 mg PO BID@0600,1800 tablet 11/10/20 Unknown Rx Levothyroxine [Synthroid] 75 mcg PO QAM@0600 tablet 11/10/20 Unknown Rx Melatonin [Melatonin 5MG TAB] 5 mg PO HS tablet 11/10/20 Unknown Rx risperiDONE [RisperDAL] 1 mg PO BID tablet 11/10/20 Unknown Rx Ondansetron [Zofran Odt] 4 mg PO Q6HR PRN #15 tab.rapdis 01/24/21 Unknown Rx Allergies Allergy/AdvReac Type Severity Reaction Status Date / Time acetaminophen [From Lortab] Allergy Shortness Verified 09/07/20 13:09 of Breath aspirin Allergy Hives Verified 09/07/20 13:09 divalproex sodium Allergy Rash Verified 09/07/20 13:09 [From Depakote] hydrocodone [From Lortab] Allergy Hives Verified 09/07/20 13:09 latex Allergy Rash Verified 09/07/20 13:09 nut - unspecified Allergy Shortness Verified 09/07/20 13:09 of Breath oxycodone Allergy Hives Verified 09/07/20 13:09 Penicillins Allergy Rash Verified 09/07/20 13:09 propoxyphene Allergy Rash Verified 09/07/20 13:09 [From Darvocet-N] Sulfa (Sulfonamide Allergy Rash Verified 09/07/20 13:09 Antibiotics) dairy Allergy Diarrhea Uncoded 02/12/19 14:15 napsylate Allergy Hives Uncoded 02/12/19 14:14 ED Review of Systems ROS: Stated complaint: DIARRHEA/FEVER/NAUSEA Other details as noted in HPI Constitutional: fever. denies: chills Eyes: denies: eye pain, eye discharge, vision change ENT: denies: ear pain, throat pain Respiratory: SOB with exertion. denies: cough, SOB at rest, wheezing Cardiovascular: dyspnea on exertion. denies: chest pain, palpitations Endocrine: no symptoms reported Gastrointestinal: as per HPI, nausea. denies: abdominal pain, vomiting, diarrhea, constipation, hematemesis, melena, hematochezia Genitourinary: denies: urgency, dysuria, discharge Musculoskeletal: denies: back pain, joint swelling, arthralgia Skin: denies: rash, lesions Neurological: denies: headache, weakness, paresthesias Psychiatric: denies: anxiety, depression Hematological/Lymphatic: denies: easy bleeding, easy bruising ED Past Medical Hx - Past Medical History Previous Medical History?: Yes Hx Hypertension: Yes Hx Congestive Heart Failure: Yes Hx Diabetes: Yes Hx Deep Vein Thrombosis: Yes Hx Psychiatric Treatment: Yes (Bipolar Depressed schizo affective, anxiety) Hx Asthma: Yes Additional medical history: Hypothyroidism, sleep apnea, DVT, Chronic Back pain, Gastritis, IBS. Hyperlipidemia, Ovarian cyst. Stubbs's palsey - Surgical History Past Surgical History?: Yes Hx Cholecystectomy: Yes Additional Surgical History: Tonsilectomy, Uterine Ablation, Hernia repair, D&C. 2 molar pulled. stiched to nasal cavity. Right Rotator cuff repair. Cholecystectomy. Patient states that she has mesh from hernia repair. - Family History Family history: no significant - Social History Smoking Status: Never Smoker Substance Use Type: Prescribed - Medications Home Medications: Home Medications Medication Instructions Recorded Confirmed Last Taken Type Famotidine [Pepcid] 20 mg PO BID tablet 07/23/20 11/10/20 Unknown Rx Fluticasone [Flonase] 1 spray NS QDAY 30 Days bottle 07/23/20 11/10/20 08/28/20 Rx Rivaroxaban [Xarelto] 10 mg PO QDAY #30 07/23/20 11/10/20 08/28/20 Rx Simvastatin 20 mg PO DAILY #30 07/23/20 11/10/20 08/28/20 Rx Benztropine [Cogentin] 0.5 mg PO BID #60 08/14/20 11/10/20 08/28/20 Rx ARIPiprazole [Abilify] 20 mg PO BID 11/10/20 11/10/20 Unknown History Albuterol Mdi (or & Nicu Only) 2 puff IH QID PRN 11/10/20 11/10/20 Unknown History [ProAir HFA Inhaler] Docusate Sodium [Colace CAP] 100 mg PO BID capsule 11/10/20 Unknown Rx Furosemide [Lasix TAB] 40 mg PO BID@0600,1800 tablet 11/10/20 Unknown Rx Levothyroxine [Synthroid] 75 mcg PO QAM@0600 tablet 11/10/20 Unknown Rx Melatonin [Melatonin 5MG TAB] 5 mg PO HS tablet 11/10/20 Unknown Rx OLANZapine [Zyprexa] 2 tab PO QHS 11/10/20 11/10/20 Unknown History Pantoprazole Sodium 1 tab PO DAILY 11/10/20 11/10/20 Unknown History Pregabalin 75 mg PO BID 11/10/20 11/10/20 Unknown History Verapamil ER [Calan SR] 1 tab PO BID 11/10/20 11/10/20 Unknown History risperiDONE [RisperDAL] 1 mg PO BID tablet 11/10/20 Unknown Rx Ondansetron [Zofran Odt] 4 mg PO Q6HR PRN #15 tab.rapdis 01/24/21 Unknown Rx ED Physical Exam - General Limitations: No Limitations General appearance: alert, in no apparent distress - Head Head exam: Present: atraumatic, normocephalic - Eye Eye exam: Present: normal appearance - ENT ENT exam: Present: mucous membranes moist - Neck Neck exam: Present: normal inspection - Respiratory Respiratory exam: Present: normal lung sounds bilaterally. Absent: respiratory distress, wheezes, rales, rhonchi, chest wall tenderness, accessory muscle use - Cardiovascular Cardiovascular Exam: Present: regular rate, normal rhythm. Absent: systolic murmur, diastolic murmur, rubs, gallop - GI/Abdominal GI/Abdominal exam: Present: soft, normal bowel sounds. Absent: distended, tenderness, guarding - Extremities Exam Extremities exam: Present: normal inspection - Back Exam Back exam: Present: normal inspection - Neurological Exam Neurological exam: Present: alert, oriented X3 - Psychiatric Psychiatric exam: Present: normal affect, normal mood - Skin Skin exam: Present: warm, dry, intact, normal color. Absent: rash ED Course Vital Signs 01/24/21 01/24/21 01/24/21 15:40 22:00 22:16 Temperature 98.4 F 98.0 F Pulse Rate 75 58 L 52 L Respiratory 18 12 12 Rate Blood Pressure 146/54 138/78 Blood Pressure 119/69 146/54 [Right] O2 Sat by Pulse 94 97 96 Oximetry 01/24/21 23:16 Temperature Pulse Rate 53 L Respiratory 12 Rate Blood Pressure 148/71 Blood Pressure [Right] O2 Sat by Pulse 98 Oximetry - Reevaluation(s) Reevaluation #1: I discussed all results and clinical findings with patient. I discussed plan of care with patient. Patient agrees with plan of care. Patient is stable for discharge. Patient will be discharged home. Patient given discharge instructions. Patient voiced understanding of discharge instructions. 01/24/21 22:24 ED Medical Decision Making - Lab Data Result diagrams: 01/24/21 19:25 01/24/21 19:25 - Radiology Data Radiology results: report reviewed, image reviewed interpreted by me: Chest x-ray: No pneumonia, no pneumothorax, no foreign body, no osseous findings, no acute findings CHEST 2 VIEWS INDICATION / CLINICAL INFORMATION: SOB. COMPARISON: Chest radiograph 01/03/2021 FINDINGS: SUPPORT DEVICES: None. HEART / MEDIASTINUM: No significant abnormality. LUNGS / PLEURA: Minimal left basilar subsegmental atelectasis. No focal pulmonary consolidation. No pleural effusion. No pneumothorax. ADDITIONAL FINDINGS: No significant additional findings. IMPRESSION: 1. No acute findings and no significant change from prior. - Medical Decision Making Patient is a 50-year-old presents emergency room with complaints of nausea, diarrhea, fever. Patient also complained of dyspnea on exertion. Patient has history of CHF. Patient is currently on her last day of doxycycline for upper respiratory infection. Patient states she called her primary care and her primary care recommended evaluation in the ER. Patient had labs done which were essentially unremarkable the patient's BNP was negative. Patient chest x-ray was negative for acute finding. Patient ST segments. I personally reviewed the EKG. Patient clinical findings are consistent with gastroenteritis, diarrhea, nausea. Patient has no plan. Patient stable for discharge. Patient does not require further emergency medical services or inpatient services. - Differential Diagnosis Gastroenteritis, nausea, diarrhea, fever, antibiotic reaction Critical care attestation.: If time is entered above; I have spent that time in minutes in the direct care of this critically ill patient, excluding procedure time. ED Disposition Clinical Impression: Nausea alone, WILSON (dyspnea on exertion), Gastroenteritis CHF (congestive heart failure) Qualifiers: Heart failure type: unspecified Heart failure chronicity: chronic Qualified Code(s): I50.9 - Heart failure, unspecified Diarrhea Qualifiers: Diarrhea type: unspecified type Qualified Code(s): R19.7 - Diarrhea, unspecified Fever Qualifiers: Fever type: unspecified Qualified Code(s): R50.9 - Fever, unspecified Disposition: TO HOME OR SELFCARE Is pt being admited?: No Does the pt Need Aspirin: No Condition: Stable Instructions: Nausea, Adult, Diarrhea, Adult, Shortness of Breath, Adult, [id number], Viral Gastroenteritis, Adult, [id number], Heart Failure, Self Care, [id number], Heart Failure Action Plan, Food Choices to Help Relieve Diarrhea, Adult, Diarrhea, Adult, [id number], Heart Failure Eating Plan, Probiotics, Abdominal Pain (ED) Additional Instructions: Patient to follow-up with primary care in 2 to 3 days. Patient to follow-up with swiss type screw machine operator in 2 to 3 days. Patient to rest. Patient to increase water. Patient to avoid strenuous exercise or heavy lifting until cleared by swiss type screw machine operator. Patient to eat a brat diet. Patient to stop doxy. Patient to take Tylenol as needed for pain or fever. Patient to take meds as directed. Patient to return to the ER if condition worsens, changes or new symptoms arise. Patient start probiotics. Prescriptions: Ondansetron [Zofran Odt] 4 mg PO Q6HR PRN #15 tab.rapdis PRN Reason: Nausea And Vomiting Referrals: LUIS WATKINS MD [Referring] - 2-3 Days Time of Disposition: 22:50
[2021-01-25 00:08] VITALS: BP 148/71
--- NOTE | 2021-01-29 12:53 | Electrocardiograph Report ---
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
== END 2021-01-25 | disposition home or self-care (01) ==
LOC: ED 14:47
DX: I11.0 Hypertensive heart disease with heart failure (principal); I50.9 Heart failure, unspecified; K52.9 Noninfective gastroenteritis and colitis, unspecified; R50.9 Fever, unspecified; R06.00 Dyspnea, unspecified; R11.0 Nausea; E11.9 Type 2 diabetes mellitus without complications; J45.909 Unspecified asthma, uncomplicated; Z90.49 Acquired absence of other specified parts of digestive tract; Z98.890 Other specified postprocedural states; Z79.899 Other long term (current) drug therapy; Z88.8 Allergy status to other drugs, medicaments and biological substances
CPT/HCPCS: 36415; 71046; 80053; 81001; 83735; 83880; 84484; 85025; 93005

== ENCOUNTER 2021-06-01 18:20 | Emergency (ER) | payer MEDICARE ==
[2021-06-01 18:29] VITALS: BP 144/92
[2021-06-01] MEDS ORDERED: IPRATROPIUM/ALBUTEROL SULFATE 3 ML AMPUL.NEB IH ONE (19:41)
--- NOTE | 2021-06-01 19:45 | Emergency Department Report ---
HPI - General Chief Complaint: Weakness Time Seen by Provider: 06/01/21 19:03 - HPI HPI: This is a 51-year-old female presents to the emergency department with a complaint of some generalized dizziness/lightheadedness, shortness of breath that worsens with exertion, decreased energy level/fatigue, intermittent coughing, nosebleeds, all of which she says has been going on since the patient had a hysteroscopy and D&C on 05/06 at [place]. She has a past medical history of CHF, hypertension, diabetes, IBS, bipolar disorder and schizoaffective disorder. She denies any tobacco or illicit drug use, or any alcohol abuse or history of dependence. She has not taken anything for symptoms prior to presentation today other than her home medication. No recent travel or sick contacts at home. She denies any fever, chest pain, diaphoresis, vision change. ED Past Medical Hx - Past Medical History Hx Hypertension: Yes Hx Congestive Heart Failure: Yes Hx Diabetes: Yes Hx Deep Vein Thrombosis: Yes Hx Psychiatric Treatment: Yes (Bipolar Depressed schizo affective, anxiety) Hx Asthma: Yes Additional medical history: Hypothyroidism, sleep apnea, DVT, Chronic Back pain, Gastritis, IBS. Hyperlipidemia, Ovarian cyst. Stubbs's palsey - Surgical History Hx Cholecystectomy: Yes Additional Surgical History: Tonsilectomy, Uterine Ablation, Hernia repair, D&C. 2 molar pulled. stiched to nasal cavity. Right Rotator cuff repair. Cholecystectomy. Patient states that she has mesh from hernia repair. - Social History Smoking Status: Never Smoker Substance Use Type: Prescribed - Medications Home Medications: Home Medications Medication Instructions Recorded Confirmed Last Taken Type Famotidine [Pepcid] 20 mg PO BID tablet 07/23/20 11/10/20 Unknown Rx Fluticasone [Flonase] 1 spray NS QDAY 30 Days bottle 07/23/20 11/10/20 08/28/20 Rx Rivaroxaban [Xarelto] 10 mg PO QDAY #30 07/23/20 11/10/20 08/28/20 Rx Simvastatin 20 mg PO DAILY #30 07/23/20 11/10/20 08/28/20 Rx Benztropine [Cogentin] 0.5 mg PO BID #60 08/14/20 11/10/20 08/28/20 Rx ARIPiprazole [Abilify] 20 mg PO BID 11/10/20 11/10/20 Unknown History Docusate Sodium [Colace CAP] 100 mg PO BID capsule 11/10/20 Unknown Rx Furosemide [Lasix TAB] 40 mg PO BID@0600,1800 tablet 11/10/20 Unknown Rx Levothyroxine [Synthroid] 75 mcg PO QAM@0600 tablet 11/10/20 Unknown Rx Melatonin [Melatonin 5MG TAB] 5 mg PO HS tablet 11/10/20 Unknown Rx OLANZapine [Zyprexa] 2 tab PO QHS 11/10/20 11/10/20 Unknown History Pantoprazole Sodium 1 tab PO DAILY 11/10/20 11/10/20 Unknown History Pregabalin 75 mg PO BID 11/10/20 11/10/20 Unknown History Verapamil ER [Calan SR] 1 tab PO BID 11/10/20 11/10/20 Unknown History risperiDONE [RisperDAL] 1 mg PO BID tablet 11/10/20 Unknown Rx Ondansetron [Zofran Odt] 4 mg PO Q6HR PRN #15 tab.rapdis 01/24/21 Unknown Rx Albuterol Mdi (or & Nicu Only) 2 puff IH QID PRN #1 inh 06/01/21 Unknown Rx [ProAir HFA Inhaler] Fluticasone (Nf) [Flovent Hfa(Nf)] 2 puff IH BID #1 inh 06/01/21 Unknown Rx ED Review of Systems ROS: Stated complaint: FEELING FAINT & DIZZY Other details as noted in HPI Comment: All other systems reviewed and negative Constitutional: weakness. denies: fever Eyes: denies: eye pain, vision change ENT: epistaxis, other (sinus pain/pressure). denies: ear pain, throat pain Respiratory: cough, shortness of breath Cardiovascular: denies: chest pain, palpitations Gastrointestinal: denies: abdominal pain, vomiting Genitourinary: denies: dysuria, discharge Musculoskeletal: denies: joint swelling, arthralgia Skin: denies: rash, lesions Neurological: other (dizzy/lightheaded). denies: numbness, paresthesias Physical Exam - Physical Exam Vital Signs: Vital Signs 06/01/21 18:28 Temperature 98.4 F Pulse Rate 68 Respiratory 16 Rate Blood Pressure 144/92 [Right] O2 Sat by Pulse 99 Oximetry Physical Exam: GENERAL: The patient is well-developed well-nourished. HENT: Normocephalic. Atraumatic. Patient has moist mucous membranes. EYES: Extraocular motions are intact. No nystagmus. NECK: Supple. Trachea is midline. CHEST/LUNGS: Clear to auscultation. No tachypnea or accessory muscle use. There is no respiratory distress noted. HEART/CARDIOVASCULAR: Regular. There is no tachycardia. There is no murmur. ABDOMEN: Abdomen is soft, nontender. Patient has normal bowel sounds. Obese habitus. SKIN: Skin is warm and dry. NEURO: The patient is awake, alert, and oriented. The patient is cooperative. The patient has no focal neurologic deficits. Normal speech. Cranial nerves II through XII grossly intact. MUSCULOSKELETAL: There is no tenderness or deformity. There is no limitation range of motion. ED Course Vital Signs 06/01/21 18:28 Temperature 98.4 F Pulse Rate 68 Respiratory 16 Rate Blood Pressure 144/92 [Right] O2 Sat by Pulse 99 Oximetry ED Medical Decision Making - Lab Data Result diagrams: 06/01/21 20:15 06/01/21 20:15 Lab Results 06/01/21 06/01/21 06/01/21 Range/Units 20:15 20:15 20:15 WBC 8.1 (4.5-11.0) K/mm3 RBC 4.92 (3.65-5.03) M/mm3 Hgb 12.7 (10.1-14.3) gm/dl Hct 38.6 (30.3-42.9) % MCV 79 (79-97) fl MCH 26 L (28-32) pg MCHC 33 (30-34) % RDW 17.1 H (13.2-15.2) % Plt Count 284 (140-440) K/mm3 Lymph % (Auto) 22.0 (13.4-35.0) % [place] % (Auto) 6.0 (0.0-7.3) % Eos % (Auto) 2.2 (0.0-4.3) % Baso % (Auto) 0.6 (0.0-1.8) % Lymph # (Auto) 1.8 (1.2-5.4) K/mm3 [place] # (Auto) 0.5 (0.0-0.8) K/mm3 Eos # (Auto) 0.2 (0.0-0.4) K/mm3 Baso # (Auto) 0.1 (0.0-0.1) K/mm3 Seg Neutrophils % 69.2 (40.0-70.0) % Seg Neutrophils # 5.6 (1.8-7.7) K/mm3 Sodium 140 (137-145) mmol/L Potassium 4.1 (3.6-5.0) mmol/L Chloride 100.7 (98-107) mmol/L Carbon Dioxide 27 (22-30) mmol/L Anion Gap 16 mmol/L BUN 12 (7-17) mg/dL Creatinine 0.9 (0.6-1.2) mg/dL Estimated GFR > 60 ml/min BUN/Creatinine Ratio 13 % Glucose 98 (65-100) mg/dL Calcium 9.6 (8.4-10.2) mg/dL Total Bilirubin 0.20 (0.1-1.2) mg/dL AST 18 (5-40) units/L ALT 13 (7-56) units/L Alkaline Phosphatase 101 (35-129) units/L Troponin T < 0.010 (0.00-0.029) ng/mL NT-Pro-B Natriuret Pep (0-900) pg/mL Total Protein 7.9 (6.3-8.2) g/dL Albumin 4.3 (3.9-5) g/dL Albumin/Globulin Ratio 1.2 % TSH 4.250 H (0.270-4.200) mlU/mL 06/01/21 Range/Units 20:15 WBC (4.5-11.0) K/mm3 RBC (3.65-5.03) M/mm3 Hgb (10.1-14.3) gm/dl Hct (30.3-42.9) % MCV (79-97) fl MCH (28-32) pg MCHC (30-34) % RDW (13.2-15.2) % Plt Count (140-440) K/mm3 Lymph % (Auto) (13.4-35.0) % [place] % (Auto) (0.0-7.3) % Eos % (Auto) (0.0-4.3) % Baso % (Auto) (0.0-1.8) % Lymph # (Auto) (1.2-5.4) K/mm3 [place] # (Auto) (0.0-0.8) K/mm3 Eos # (Auto) (0.0-0.4) K/mm3 Baso # (Auto) (0.0-0.1) K/mm3 Seg Neutrophils % (40.0-70.0) % Seg Neutrophils # (1.8-7.7) K/mm3 Sodium (137-145) mmol/L Potassium (3.6-5.0) mmol/L Chloride (98-107) mmol/L Carbon Dioxide (22-30) mmol/L Anion Gap mmol/L BUN (7-17) mg/dL Creatinine (0.6-1.2) mg/dL Estimated GFR ml/min BUN/Creatinine Ratio % Glucose (65-100) mg/dL Calcium (8.4-10.2) mg/dL Total Bilirubin (0.1-1.2) mg/dL AST (5-40) units/L ALT (7-56) units/L Alkaline Phosphatase (35-129) units/L Troponin T (0.00-0.029) ng/mL NT-Pro-B Natriuret Pep 70.79 (0-900) pg/mL Total Protein (6.3-8.2) g/dL Albumin (3.9-5) g/dL Albumin/Globulin Ratio % TSH (0.270-4.200) mlU/mL - EKG Data -: EKG Interpreted by [place] EKG shows normal: sinus rhythm (PVCs), axis (Left axis deviation), intervals (Prolonged QTC), QRS complexes (Q waves to the anteroseptal leads, LVH), ST-T waves Rate: normal - EKG Data When compared to previous EKG there are: no significant change Interpretation: unchanged when compared t (01/24/21) - Radiology Data Radiology results: image reviewed interpreted by me: Chest x-ray does not show any acute process. There are no pleural effusions, obvious pneumonia and there is no pneumothorax. No widened mediastinum. - Medical Decision Making This patient presents to the emergency department with a multitude of complaints that include shortness of breath that worsens with exertion, epistaxis, decrea sed energy levels, and some dizziness/lightheadedness. On examination the patient does not have any focal, motor or sensory deficits and her cranial nerves are intact. Heart and lung sounds are normal to auscultation and the patient does not appear in any respiratory or acute distress. EKG does not have any morphology consistent with ST elevation myocardial infarction. Chest x-ray does not show any pneumonia, pleural effusions, pneumothorax, widened mediastinum, or any acute process. Patient's labs have been mostly unremarkable including CBC, metabolic panel, proBNP, negative troponin, and the patient essentially has normal thyroid function with only a slightly elevated TSH level. Vital signs have been reassuring throughout her ED course including being afebrile. The patient was given a DuoNeb breathing treatment and upon reevaluation says she is feeling improved. She was given a prescription for a refill of her albuterol and Flovent. She has good outpatient follow-up with primary care. She appears safe for discharge home at this time and will return to the emergency department with any worsening of her symptoms or with any acute distress. Critical Care Time: No Critical care attestation.: If time is entered above; I have spent that time in minutes in the direct care of this critically ill patient, excluding procedure time. ED Disposition Clinical Impression: Generalized weakness, Fatigue, Hypothyroidism, Lightheaded Disposition: 01 HOME / SELF CARE / HOMELESS Is pt being admited?: No Condition: Stable Instructions: Fatigue, Hypothyroidism, Weakness, Dizziness Additional Instructions: Please follow-up with your primary care physician in the next few days. Return to the emergency department with any worsening of your symptoms, new or concerning symptoms not addressed during this current emergency department visit, or with any acute distress. Prescriptions: Fluticasone (Nf) [Flovent Hfa(Nf)] 2 puff IH BID #1 inh Albuterol Mdi (or & Nicu Only) [ProAir HFA Inhaler] 2 puff IH QID PRN #1 inh PRN Reason: Shortness Of Breath Referrals: PCP, Your [Other] - 2-3 Days Time of Disposition: 22:44
--- NOTE | 2021-06-01 20:08 | XRay Report ---
CHEST PA AND LATERAL VIEWS INDICATION: SOB. COMPARISON: 01/24/2021 FINDINGS: Support devices: None. Heart: Within normal limits. Lungs/Pleura: Low lung volumes persist with atelectatic changes in the bases. IMPRESSION: 1. No acute findings. Signer Name: Ari Cowan MD Signed: 06/01/2021 8:04 PM Workstation Name: [id number]
[2021-06-01 20:37] LABS: Basophils # (Auto) 0.1 K/mm3 (0.0-0.1); Basophils % (Auto) 0.6 % (0.0-1.8); Eosinophils # (Auto) 0.2 K/mm3 (0.0-0.4); Eosinophils % (Auto) 2.2 % (0.0-4.3); Hematocrit 38.6 % (30.3-42.9); Hemoglobin 12.7 gm/dl (10.1-14.3); Lymphocytes # (Auto) 1.8 K/mm3 (1.2-5.4); Mean Corpuscular HGB Conc 33 % (30-34); Mean Corpuscular Volume 79 fl (79-97); Monocytes # (Auto) 0.5 K/mm3 (0.0-0.8); Platelet Count 284 K/mm3 (140-440); Red Blood Count 4.92 M/mm3 (3.65-5.03); Red Cell Distribution Width 17.1 % (13.2-15.2)
[2021-06-01 20:58] LABS: Alanine Aminotransferase 13 units/L (7-56); Albumin 4.3 g/dL (3.9-5); BUN/Creatinine Ratio 13; Blood Urea Nitrogen 12 mg/dL (7-17); Calcium 9.6 mg/dL (8.4-10.2); Hemolysis Index 4
--- NOTE | 2021-06-02 11:03 | Electrocardiograph Report ---
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 Probable LVH with secondary repol abnrm Anterior Q waves, possibly due to LVH Prolonged QT interval Compared to ECG 01/24/2021 19:21:47 probably no significant change noted. Electronically Signed On 06-02-2021 11:03:10 EDT by Chuck Valero
== END 2021-06-01 22:57 | disposition home or self-care (01) ==
LOC: ED 18:20
DX: E03.9 Hypothyroidism, unspecified (principal); R42 Dizziness and giddiness; R53.1 Weakness; R53.83 Other fatigue; I11.0 Hypertensive heart disease with heart failure; I50.9 Heart failure, unspecified; F25.0 Schizoaffective disorder, bipolar type; F41.9 Anxiety disorder, unspecified; E11.8 Type 2 diabetes mellitus with unspecified complications; J45.909 Unspecified asthma, uncomplicated; G89.29 Other chronic pain; M54.9 Dorsalgia, unspecified; G47.30 Sleep apnea, unspecified; N83.209 Unspecified ovarian cyst, unspecified side; G51.0 Bell's palsy; Z98.890 Other specified postprocedural states
CPT/HCPCS: 36415; 71046; 80053; 83880; 84443; 84484; 85025; 93005; 94640; 99284

== ENCOUNTER 2021-08-07 14:10 | Emergency (ER) | payer MEDICARE ==
[2021-08-07 16:12] LABS: Basophils # (Auto) 0.1 K/mm3 (0.0-0.1); Eosinophils # (Auto) 0.1 K/mm3 (0.0-0.4); Eosinophils % (Auto) 1.5 % (0.0-4.3); Hematocrit 44.3 % (30.3-42.9); Lymphocytes % (Auto) 23.7 % (13.4-35.0); Mean Corpuscular HGB Conc 32 % (30-34); Mean Corpuscular Volume 78 fl (79-97); Monocytes # (Auto) 0.6 K/mm3 (0.0-0.8); Monocytes % (Auto) 7.5 % (0.0-7.3); Platelet Count 337 K/mm3 (140-440); Red Blood Count 5.65 M/mm3 (3.65-5.03); Red Cell Distribution Width 15.9 % (13.2-15.2)
[2021-08-07 16:46] LABS: Albumin 4.6 g/dL (3.9-5); Calcium 9.5 mg/dL (8.4-10.2)
[2021-08-07] MEDS ORDERED: LIDOCAINE VISCOUS 2% 15 ML ORAL LIQD PO ONE (17:50)
[2021-08-07] MEDS ORDERED: ONDANSETRON 2 MG/2.5 ML ORAL LIQD PO ONE (17:50)
--- NOTE | 2021-08-07 17:52 | Emergency Department Report ---
ED General Adult HPI - General Chief complaint: Nausea/Vomiting/Diarrhea Stated complaint: nausea vomiting diarrhea Time Seen by Provider: 08/07/21 17:38 Source: patient, EMS ( EMS documentation not available at time of chart dictation ), RN notes reviewed, old records reviewed Mode of arrival: Stretcher Limitations: No Limitations - History of Present Illness Initial comments: The patient was evaluated in the emergency department for symptoms described in the history of present illness. He/she was evaluated in the context of the global COVID-19 pandemic, which necessitated consideration that the patient might be at risk for infection with the virus that causes COVID-19. Institutional protocols and algorithms that pertain to the evaluation of patients at risk for COVID-19 are in a state of rapid change based on information released by regulatory bodies including the CDC and federal and state organizations. These policies and algorithms were followed during the patient's care in the emergency department. Please note that these policies, procedures and recommendations changed on a rapid basis. This is a 51-year-old female. Her past medical history includes morbid obesity, with a body mass index of 54.8, GERD, congestive heart failure, history of DVT, depression, hypothyroidism, peripheral neuropathy, and dyslipidemia. The patient reports that she is COVID-19 vaccinated. The patient presents to the ER today with a complaint of "laryngitis", sore throat, dry cough, nausea/vomiting, three episodes of clear, yellow and watery, two episodes of nonbloody diarrhea, yellow and brown, loss of taste x1 day, musculoskeletal back pain. She reports her primary care doctor prescribed her Phenergan which does not help her nausea. The patient also endorses dysuria. The patient reports that she lives in a residential. -: Gradual, days(s) Location: mouth, back Severity scale (0 -10): 0 Consistency: constant, intermittent Improves with: rest Worsens with: movement - Related Data Home Medications Medication Instructions Recorded Confirmed Last Taken ARIPiprazole [Abilify] 20 mg PO BID 11/10/20 11/10/20 Unknown OLANZapine [Zyprexa] 2 tab PO QHS 11/10/20 11/10/20 Unknown Pantoprazole Sodium 1 tab PO DAILY 11/10/20 11/10/20 Unknown Pregabalin 75 mg PO BID 11/10/20 11/10/20 Unknown Verapamil ER [Calan SR] 1 tab PO BID 11/10/20 11/10/20 Unknown Previous Rx's Medication Instructions Recorded Last Taken Type Famotidine [Pepcid] 20 mg PO BID tablet 07/23/20 Unknown Rx Fluticasone [Flonase] 1 spray NS QDAY 30 Days bottle 07/23/20 08/28/20 Rx Rivaroxaban [Xarelto] 10 mg PO QDAY #30 07/23/20 08/28/20 Rx Simvastatin 20 mg PO DAILY #30 07/23/20 08/28/20 Rx Benztropine [Cogentin] 0.5 mg PO BID #60 08/14/20 08/28/20 Rx Docusate Sodium [Colace CAP] 100 mg PO BID capsule 11/10/20 Unknown Rx Furosemide [Lasix TAB] 40 mg PO BID@0600,1800 tablet 11/10/20 Unknown Rx Levothyroxine [Synthroid] 75 mcg PO QAM@0600 tablet 11/10/20 Unknown Rx Melatonin [Melatonin 5MG TAB] 5 mg PO HS tablet 11/10/20 Unknown Rx risperiDONE [RisperDAL] 1 mg PO BID tablet 11/10/20 Unknown Rx Ondansetron [Zofran Odt] 4 mg PO Q6HR PRN #15 tab.rapdis 01/24/21 Unknown Rx Albuterol Mdi (or & Nicu Only) 2 puff IH QID PRN #1 inh 06/01/21 Unknown Rx [ProAir HFA Inhaler] Fluticasone (Nf) [Flovent Hfa(Nf)] 2 puff IH BID #1 inh 06/01/21 Unknown Rx Winter Root [Winter] 250 mg PO QID PRN #30 capsule 08/07/21 Unknown Rx Allergies Allergy/AdvReac Type Severity Reaction Status Date / Time acetaminophen [From Lortab] Allergy Shortness Verified 09/07/20 13:09 of Breath aspirin Allergy Hives Verified 09/07/20 13:09 divalproex sodium Allergy Rash Verified 09/07/20 13:09 [From Depakote] hydrocodone [From Lortab] Allergy Hives Verified 09/07/20 13:09 latex Allergy Rash Verified 09/07/20 13:09 nut - unspecified Allergy Shortness Verified 09/07/20 13:09 of Breath oxycodone Allergy Hives Verified 09/07/20 13:09 Penicillins Allergy Rash Verified 09/07/20 13:09 propoxyphene Allergy Rash Verified 09/07/20 13:09 [From Darvocet-N] Sulfa (Sulfonamide Allergy Rash Verified 09/07/20 13:09 Antibiotics) dairy Allergy Diarrhea Uncoded 02/12/19 14:15 napsylate Allergy Hives Uncoded 02/12/19 14:14 ED Review of Systems ROS: Stated complaint: nausea vomiting diarrhea Other details as noted in HPI Constitutional: denies: fever Eyes: denies: eye discharge ENT: throat pain, congestion Respiratory: cough Cardiovascular: denies: chest pain Gastrointestinal: nausea, vomiting, diarrhea. denies: abdominal pain Genitourinary: dysuria Musculoskeletal: back pain, arthralgia, myalgia Neurological: headache, weakness, other (Denies focal extremity weakness and numbness) Psychiatric: anxiety ED Past Medical Hx - Past Medical History Hx Hypertension: Yes Hx Congestive Heart Failure: Yes Hx Diabetes: Yes Hx Deep Vein Thrombosis: Yes Hx Psychiatric Treatment: Yes (Bipolar Depressed schizo affective, anxiety) Hx Asthma: Yes Additional medical history: Hypothyroidism, sleep apnea, DVT, Chronic Back pain, Gastritis, IBS. Hyperlipidemia, Ovarian cyst. Stubbs's palsey - Surgical History Hx Cholecystectomy: Yes Additional Surgical History: Tonsilectomy, Uterine Ablation, Hernia repair, D&C. 2 molar pulled. stiched to nasal cavity. Right Rotator cuff repair. Cholecystectomy. Patient states that she has mesh from hernia repair. - Social History Smoking Status: Never Smoker Substance Use Type: Prescribed - Medications Home Medications: Home Medications Medication Instructions Recorded Confirmed Last Taken Type Famotidine [Pepcid] 20 mg PO BID tablet 07/23/20 11/10/20 Unknown Rx Fluticasone [Flonase] 1 spray NS QDAY 30 Days bottle 07/23/20 11/10/20 08/28/20 Rx Rivaroxaban [Xarelto] 10 mg PO QDAY #30 07/23/20 11/10/20 08/28/20 Rx Simvastatin 20 mg PO DAILY #30 07/23/20 11/10/20 08/28/20 Rx Benztropine [Cogentin] 0.5 mg PO BID #60 08/14/20 11/10/20 08/28/20 Rx ARIPiprazole [Abilify] 20 mg PO BID 11/10/20 11/10/20 Unknown History Docusate Sodium [Colace CAP] 100 mg PO BID capsule 11/10/20 Unknown Rx Furosemide [Lasix TAB] 40 mg PO BID@0600,1800 tablet 11/10/20 Unknown Rx Levothyroxine [Synthroid] 75 mcg PO QAM@0600 tablet 11/10/20 Unknown Rx Melatonin [Melatonin 5MG TAB] 5 mg PO HS tablet 11/10/20 Unknown Rx OLANZapine [Zyprexa] 2 tab PO QHS 11/10/20 11/10/20 Unknown History Pantoprazole Sodium 1 tab PO DAILY 11/10/20 11/10/20 Unknown History Pregabalin 75 mg PO BID 11/10/20 11/10/20 Unknown History Verapamil ER [Calan SR] 1 tab PO BID 11/10/20 11/10/20 Unknown History risperiDONE [RisperDAL] 1 mg PO BID tablet 11/10/20 Unknown Rx Ondansetron [Zofran Odt] 4 mg PO Q6HR PRN #15 tab.rapdis 01/24/21 Unknown Rx Albuterol Mdi (or & Nicu Only) 2 puff IH QID PRN #1 inh 06/01/21 Unknown Rx [ProAir HFA Inhaler] Fluticasone (Nf) [Flovent Hfa(Nf)] 2 puff IH BID #1 inh 06/01/21 Unknown Rx Winter Root [Winter] 250 mg PO QID PRN #30 capsule 08/07/21 Unknown Rx ED Physical Exam - General Limitations: No Limitations General appearance: alert, anxious, obese - Head Head exam: Present: atraumatic, normocephalic - Eye Eye exam: Present: normal appearance, PERRL, EOMI. Absent: nystagmus - ENT ENT exam: Present: normal exam, normal orophraynx, mucous membranes moist, TM's normal bilaterally, normal external ear exam, other (There is minimal pharyngeal erythema. There are no pharyngeal exudates) - Neck Neck exam: Present: normal inspection, full ROM. Absent: tenderness, meningismus - Respiratory Respiratory exam: Present: normal lung sounds bilaterally. Absent: respiratory distress, wheezes, rales, rhonchi, stridor, decreased breath sounds - Cardiovascular Cardiovascular Exam: Present: regular rate, normal rhythm, normal heart sounds. Absent: bradycardia, tachycardia, irregular rhythm, systolic murmur, diastolic murmur, rubs, gallop - GI/Abdominal GI/Abdominal exam: Present: soft. Absent: distended, tenderness, guarding, rebound, rigid, pulsatile mass - Extremities Exam Extremities exam: Present: normal inspection, full ROM, pedal edema (1+ edema in the bilateral lower extremities), other (2+ pulses noted in the bilateral upper and lower extremities. There is no palpable cord. negative Homans sign. Muscular compartments are soft. The pelvis is stable.). Absent: calf tenderness - Back Exam Back exam: Present: normal inspection, paraspinal tenderness. Absent: CVA tenderness (R), CVA tenderness (L), muscle spasm, vertebral tenderness - Neurological Exam Neurological exam: Present: alert, oriented X3, normal gait, other (No facial droop. Tongue midline. Extraocular movements intact bilaterally. Facial sensation intact to light touch in V1, V2, V3 distribution bilaterally. 5 and a 5 strength in 4 extremities. Sensation intact to light touch in 4 extremities.). Absent: motor sensory deficit - Psychiatric Psychiatric exam: Present: anxious - Skin Skin exam: Present: warm, dry, intact, normal color. Absent: rash ED Course Vital Signs 08/07/21 14:19 Temperature 98.7 F Pulse Rate 75 Respiratory 14 Rate Blood Pressure 135/83 [Left] O2 Sat by Pulse 96 Oximetry - Reevaluation(s) Reevaluation #1: 08/07/21 18:35 Differential diagnosis, including but not limited to: Laryngitis, viral syndrome, musculoskeletal pain, anxiety, gastroenteritis, urinary tract infection, COVID-19 Assessment and plan: 51-year-old female, who is afebrile, with reassuring vital signs, who is very anxious, with a complaint of sore throat, laryngitis, nausea, vomiting and diarrhea, musculoskeletal pain. She is COVID-19 vaccinated. She is not hypoxic. Lung sounds clear. Has reproducible back pain and paralumbar pain. No midline spinal tenderness. She ambulates with a steady gait. She also resides in a residential. She is phonating in complete sentences. She is not stridulous. She is protecting her airway. Salt water gargles, advance diet as tolerated, all medications reviewed, patient has received acetaminophen in the past without difficulty at this facility. Laboratory studies essentially nonactionable, with the exception of potassium of 3.4. Patient endorsed dysuria. I am awaiting a urine sample. At this point in time, this patient does not appear to have an emergent medical condition present at this time. Reevaluation #2: 08/07/21 20:13 Patient sitting comfortably in chair. She is in no acute distress. Her urinalysis is nonactionable. Patient does not appear to have an emergent medical condition present at this time. Discharge with supportive care and outpatient follow-up. ED Medical Decision Making - Lab Data Result diagrams: 08/07/21 15:48 08/07/21 15:48 Vital Signs 08/07/21 14:19 Temperature 98.7 F Pulse Rate 75 Respiratory 14 Rate Blood Pressure 135/83 [Left] O2 Sat by Pulse 96 Oximetry Lab Results 08/07/21 08/07/21 Range/Units 15:48 15:48 WBC 8.6 (4.5-11.0) K/mm3 RBC 5.65 H (3.65-5.03) M/mm3 Hgb 14.0 (10.1-14.3) gm/dl Hct 44.3 H (30.3-42.9) % MCV 78 L (79-97) fl MCH 25 L (28-32) pg MCHC 32 (30-34) % RDW 15.9 H (13.2-15.2) % Plt Count 337 (140-440) K/mm3 Lymph % (Auto) 23.7 (13.4-35.0) % [place] % (Auto) 7.5 H (0.0-7.3) % Eos % (Auto) 1.5 (0.0-4.3) % Baso % (Auto) 1.0 (0.0-1.8) % Lymph # (Auto) 2.0 (1.2-5.4) K/mm3 [place] # (Auto) 0.6 (0.0-0.8) K/mm3 Eos # (Auto) 0.1 (0.0-0.4) K/mm3 Baso # (Auto) 0.1 (0.0-0.1) K/mm3 Seg Neutrophils % 66.3 (40.0-70.0) % Seg Neutrophils # 5.7 (1.8-7.7) K/mm3 Sodium 143 (137-145) mmol/L Potassium 3.4 L (3.6-5.0) mmol/L Chloride 95.8 L (98-107) mmol/L Carbon Dioxide 30 (22-30) mmol/L Anion Gap 21 mmol/L BUN 14 (7-17) mg/dL Creatinine 1.0 (0.6-1.2) mg/dL Estimated GFR 59 ml/min BUN/Creatinine Ratio 14 % Glucose 108 H (65-100) mg/dL Calcium 9.5 (8.4-10.2) mg/dL Total Bilirubin 0.40 (0.1-1.2) mg/dL AST 23 (5-40) units/L ALT 19 (7-56) units/L Alkaline Phosphatase 111 (35-129) units/L Total Protein 7.6 (6.3-8.2) g/dL Albumin 4.6 (3.9-5) g/dL Albumin/Globulin Ratio 1.5 % Lipase 38 (13-60) units/L Critical care attestation.: If time is entered above; I have spent that time in minutes in the direct care of this critically ill patient, excluding procedure time. ED Disposition Clinical Impression: Body mass index (BMI) of 50-59.9 in adult, History of nausea and vomiting, History of diarrhea, Musculoskeletal back pain, Laryngitis Disposition: 01 HOME / SELF CARE / HOMELESS Is pt being admited?: No Does the pt Need Aspirin: No Condition: Good Additional Instructions: Rest, and avoid heavy lifting. Alternate ice packs and heat packs as needed for physical pain. Patient also found to have body mass index of 54.9. We do recommend that the patient exercise as tolerated, and aggressively lose weight. Advance diet as tolerated, and start using salt water gargles for throat discomfort. Patient has been seen to have taken Tylenol in the past at this facility, without incident or allergic reaction that has been documented. At this point time, the patient may take liquid acetaminophen [id number], 500 mg by mouth, every 4-6 hours as needed for physical pain. Even though the patient is COVID-19 vaccinated, we do recommend the patient have an outpatient COVID-19 test performed. Please continue current outpatient medications. Participate in activity and ambulation/walking as tolerated. Use your rolling walker when ambulating or walking. Patient was found to have slightly low potassium level, please consume foods that are high in potassium, such as banana, potato, or avocado. Please follow-up with your primary care doctor within the next 7 to 10 days. Please return to the emergency room right away with new pain, worsened pain, migration of pain, projectile vomiting, change in mental status, confusion, inability tolerate liquid feeds, new, worsened or different symptoms not present on the initial emergency room evaluation Patient may take the winter tablet as needed for nausea/vomiting. Prescriptions: Winter Root [Winter] 250 mg PO QID PRN #30 capsule PRN Reason: Nausea Referrals: [facility] [Provider Group] - 3-5 Days
[2021-08-07] MEDS ORDERED: ACETAMINOPHEN 325 MG/10.15 ML ORAL LIQD UNIT DOSE PO ONE (17:53)
[2021-08-07] MEDS ORDERED: POTASSIUM CHLORIDE ER 20 MEQ TAB PO ONE (18:35)
[2021-08-07 19:52] LABS: Bilirubin,Urine NEG (Negative); Blood,Urine NEG (Negative); Color,Urine Yellow (Yellow); Hyaline Casts,Urine 2 /LPF; Mucus,Urine FEW /HPF; Urobilinogen,Urine < 2.0 mg/dL (<2.0)
[2021-08-07 20:21] VITALS: BP 138/77
== END 2021-08-07 20:00 | disposition home or self-care (01) ==
LOC: ED 14:10
DX: J04.0 Acute laryngitis (principal); M54.50 Low back pain, unspecified; Z68.43 Body mass index [BMI] 50.0-59.9, adult; R11.2 Nausea with vomiting, unspecified; K59.1 Functional diarrhea; I10 Essential (primary) hypertension; Z86.79 Personal history of other diseases of the circulatory system; E11.8 Type 2 diabetes mellitus with unspecified complications; J45.909 Unspecified asthma, uncomplicated; Z88.6 Allergy status to analgesic agent; Z91.040 Latex allergy status; Z91.011 Allergy to milk products; Z88.5 Allergy status to narcotic agent; Z91.010 Allergy to peanuts; Z88.2 Allergy status to sulfonamides; Z88.0 Allergy status to penicillin
CPT/HCPCS: 36415; 80053; 81001; 83690; 85025; 99284; Q0162

== ENCOUNTER 2021-11-19 05:46 | Observation (INO) | payer MEDICARE ==
[2021-11-19] MEDS ORDERED: NITROGLYCERIN 0.4 MG TAB SUBL SL ONE (06:32)
[2021-11-19] MEDS ORDERED: MORPHINE 4 MG/1 ML INJ IV ONE (06:33)
[2021-11-19 06:46] LABS: Basophils # (Auto) 0.1 K/mm3 (0.0-0.1); Basophils % (Auto) 1.4 % (0.0-1.8); Eosinophils # (Auto) 0.2 K/mm3 (0.0-0.4); Eosinophils % (Auto) 1.8 % (0.0-4.3); Hematocrit 38.5 % (30.3-42.9); Hemoglobin 12.8 gm/dl (10.1-14.3); Lymphocytes % (Auto) 19.5 % (13.4-35.0); Mean Corpuscular HGB Conc 33 % (30-34); Mean Corpuscular Volume 77 fl (79-97); Monocytes # (Auto) 0.7 K/mm3 (0.0-0.8); Monocytes % (Auto) 7.2 % (0.0-7.3); Platelet Count 280 K/mm3 (140-440); Red Blood Count 4.99 M/mm3 (3.65-5.03); Red Cell Distribution Width 16.2 % (13.2-15.2)
--- NOTE | 2021-11-19 06:48 | Emergency Department Report ---
ED Chest Pain HPI - General Chief Complaint: Chest Pain Stated Complaint: HYPOGLYCEMIA Time Seen by Provider: 11/19/21 06:18 Source: patient, EMS Mode of arrival: Stretcher Limitations: No Limitations - History of Present Illness Initial Comments: 51-year-old morbidly obese female with a history of CHF who now presents with chest pain that started as she got up this morning to use the bathroom. Patient described the pain as pressure in the middle of her chest radiating to the right shoulder. Patient rated the pain as 8/10 in severity. Patient has not taking aspirin because she is allergic to it. She also have not taking nitro because of the headache side effect. Patient denies any recent cough, shortness of breath or palpitation. She however reported that she gained some 6 pounds weight overnight. She also mentioned that she had some salt last night. No other modifying or positive factor reported. - Related Data Home Medications Medication Instructions Recorded Confirmed Last Taken ARIPiprazole [Abilify] 20 mg PO QDAY 11/10/20 11/19/21 11/18/21 OLANZapine [Zyprexa] 4 tab PO QHS 11/10/20 11/19/21 11/18/21 Pantoprazole Sodium 1 tab PO DAILY 11/10/20 11/19/21 11/18/21 Pregabalin 75 mg PO BID 11/10/20 11/19/21 11/18/21 Clonidine HCl [Kapvay] 0.1 mg PO QDAY 11/19/21 11/19/21 11/18/21 Escitalopram Oxalate [Lexapro] 20 mg PO QDAY 11/19/21 11/19/21 11/18/21 Linaclotide [Linzess] 145 mcg PO QDAY 11/19/21 11/19/21 11/18/21 Prazosin 1 mg PO QHS 11/19/21 11/19/21 11/18/21 Promethazine [Phenergan] 25 mg PO Q8HR PRN 11/19/21 11/19/21 11/18/21 Torsemide [Demadex] 20 mg PO BID 11/19/21 11/19/21 11/18/21 Verapamil ER [Calan SR] 180 mg PO BID 11/19/21 11/19/21 11/18/21 hydrOXYzine PAMOATE [Vistaril] 25 mg PO TID 11/19/21 11/19/21 11/18/21 metOLazone [Zaroxolyn] 2.5 mg PO QDAY 11/19/21 11/19/21 11/18/21 Previous Rx's Medication Instructions Recorded Last Taken Type Famotidine [Pepcid] 20 mg PO BID tablet 07/23/20 11/18/21 Rx Rivaroxaban [Xarelto] 10 mg PO QDAY #30 07/23/20 11/18/21 Rx Simvastatin 20 mg PO DAILY #30 07/23/20 11/18/21 Rx Benztropine [Cogentin] 0.5 mg PO BID #60 08/14/20 11/18/21 Rx Levothyroxine [Synthroid] 75 mcg PO QAM@0600 tablet 11/10/20 11/18/21 Rx Melatonin [Melatonin 5MG TAB] 5 mg PO HS tablet 11/10/20 11/18/21 Rx risperiDONE [RisperDAL] 1 mg PO BID tablet 11/10/20 11/18/21 Rx Allergies Allergy/AdvReac Type Severity Reaction Status Date / Time acetaminophen [From Lortab] Allergy Shortness Verified 11/19/21 07:48 of Breath aspirin Allergy Hives Verified 11/19/21 07:48 divalproex sodium Allergy Rash Verified 11/19/21 07:48 [From Depakote] hydrocodone [From Lortab] Allergy Hives Verified 11/19/21 07:48 latex Allergy Rash Verified 11/19/21 07:48 nut - unspecified Allergy Shortness Verified 11/19/21 07:48 of Breath oxycodone Allergy Hives Verified 11/19/21 07:48 Penicillins Allergy Rash Verified 11/19/21 07:48 propoxyphene Allergy Rash Verified 11/19/21 07:48 [From Darvocet-N] Sulfa (Sulfonamide Allergy Rash Verified 11/19/21 07:48 Antibiotics) dairy Allergy Diarrhea Uncoded 02/12/19 14:15 napsylate Allergy Hives Uncoded 02/12/19 14:14 Heart Score - HEART Score History: Moderately suspicious EKG: Normal Age: 45-65 Risk factors: > 3 risk factors or hx of atherosclerotic disease Troponin: > 3x normal limit HEART Score: 6 - EKG Read Time Time EKG Completed: 06:11 EKG Read Time: 06:15 ED Review of Systems ROS: Stated complaint: HYPOGLYCEMIA Other details as noted in HPI Comment: All other systems reviewed and negative Cardiovascular: chest pain ED Past Medical Hx - Past Medical History Previous Medical History?: Yes Hx Hypertension: Yes Hx Congestive Heart Failure: Yes Hx Diabetes: Yes Hx Deep Vein Thrombosis: Yes Hx Psychiatric Treatment: Yes (Bipolar Depressed schizo affective, anxiety) Hx Asthma: Yes Additional medical history: Hypothyroidism, sleep apnea, DVT, Chronic Back pain, Gastritis, IBS. Hyperlipidemia, Ovarian cyst. Stubbs's palsey - Surgical History Past Surgical History?: Yes Hx Cholecystectomy: Yes Additional Surgical History: Tonsilectomy, Uterine Ablation, Hernia repair, D&C. 2 molar pulled. stiched to nasal cavity. Right Rotator cuff repair. Cholecystectomy. Patient states that she has mesh from hernia repair. - Social History Smoking Status: Never Smoker Substance Use Type: Prescribed - Medications Home Medications: Home Medications Medication Instructions Recorded Confirmed Last Taken Type Famotidine [Pepcid] 20 mg PO BID tablet 07/23/20 11/19/21 11/18/21 Rx Rivaroxaban [Xarelto] 10 mg PO QDAY #30 07/23/20 11/19/21 11/18/21 Rx Simvastatin 20 mg PO DAILY #30 07/23/20 11/19/21 11/18/21 Rx Benztropine [Cogentin] 0.5 mg PO BID #60 08/14/20 11/19/21 11/18/21 Rx ARIPiprazole [Abilify] 20 mg PO QDAY 11/10/20 11/19/21 11/18/21 History Levothyroxine [Synthroid] 75 mcg PO QAM@0600 tablet 11/10/20 11/19/21 11/18/21 Rx Melatonin [Melatonin 5MG TAB] 5 mg PO HS tablet 11/10/20 11/19/21 11/18/21 Rx OLANZapine [Zyprexa] 4 tab PO QHS 11/10/20 11/19/21 11/18/21 History Pantoprazole Sodium 1 tab PO DAILY 11/10/20 11/19/21 11/18/21 History Pregabalin 75 mg PO BID 11/10/20 11/19/21 11/18/21 History risperiDONE [RisperDAL] 1 mg PO BID tablet 11/10/20 11/19/21 11/18/21 Rx Clonidine HCl [Kapvay] 0.1 mg PO QDAY 11/19/21 11/19/21 11/18/21 History Escitalopram Oxalate [Lexapro] 20 mg PO QDAY 11/19/21 11/19/21 11/18/21 History Linaclotide [Linzess] 145 mcg PO QDAY 11/19/21 11/19/21 11/18/21 History Prazosin 1 mg PO QHS 11/19/21 11/19/21 11/18/21 History Promethazine [Phenergan] 25 mg PO Q8HR PRN 11/19/21 11/19/21 11/18/21 History Torsemide [Demadex] 20 mg PO BID 11/19/21 11/19/21 11/18/21 History Verapamil ER [Calan SR] 180 mg PO BID 11/19/21 11/19/21 11/18/21 History hydrOXYzine PAMOATE [Vistaril] 25 mg PO TID 11/19/21 11/19/21 11/18/21 History metOLazone [Zaroxolyn] 2.5 mg PO QDAY 11/19/21 11/19/21 11/18/21 History ED Physical Exam - General Limitations: No Limitations General appearance: alert, in no apparent distress - Head Head exam: Present: normal inspection - Eye Eye exam: Present: normal appearance Pupils: Present: normal accommodation - ENT ENT exam: Present: normal exam, normal orophraynx, mucous membranes moist - Neck Neck exam: Present: normal inspection, full ROM - Respiratory Respiratory exam: Present: normal lung sounds bilaterally - Cardiovascular Cardiovascular Exam: Present: regular rate, normal rhythm, normal heart sounds - GI/Abdominal GI/Abdominal exam: Present: soft, tenderness (Epigastric tenderness), normal bowel sounds - Extremities Exam Extremities exam: Present: normal inspection, normal capillary refill - Back Exam Back exam: Present: normal inspection - Neurological Exam Neurological exam: Present: alert - Skin Skin exam: Present: warm, intact ED Course Vital Signs 11/19/21 11/19/21 11/19/21 05:52 06:05 06:22 Temperature 98 F Pulse Rate 74 59 L Respiratory 16 16 12 Rate Blood Pressure Blood Pressure 146/90 [Right] O2 Sat by Pulse 95 95 99 Oximetry 11/19/21 11/19/21 11/19/21 06:31 06:45 07:01 Temperature Pulse Rate 71 65 66 Respiratory 12 11 L 12 Rate Blood Pressure 134/79 138/66 145/65 Blood Pressure [Right] O2 Sat by Pulse 98 98 99 Oximetry 11/19/21 11/19/21 11/19/21 07:07 07:08 07:15 Temperature Pulse Rate 64 79 Respiratory 18 15 Rate Blood Pressure 147/90 125/63 Blood Pressure [Right] O2 Sat by Pulse 94 Oximetry 11/19/21 11/19/21 11/19/21 07:31 07:45 08:01 Temperature Pulse Rate 70 74 58 L Respiratory 14 10 L 13 Rate Blood Pressure 127/67 141/87 126/89 Blood Pressure [Right] O2 Sat by Pulse 98 97 97 Oximetry 11/19/21 11/19/21 11/19/21 08:15 08:31 08:45 Temperature Pulse Rate 58 L 61 60 Respiratory 11 L 16 15 Rate Blood Pressure 141/86 150/82 159/82 Blood Pressure [Right] O2 Sat by Pulse 96 98 97 Oximetry 11/19/21 11/19/21 11/19/21 09:01 09:15 09:31 Temperature Pulse Rate 56 L 60 61 Respiratory 14 14 13 Rate Blood Pressure 161/89 142/88 169/91 Blood Pressure [Right] O2 Sat by Pulse 98 98 98 Oximetry 11/19/21 11/19/21 11/19/21 09:45 10:00 10:15 Temperature Pulse Rate 59 L 63 58 L Respiratory 13 14 14 Rate Blood Pressure 150/88 150/88 158/92 Blood Pressure [Right] O2 Sat by Pulse 98 98 98 Oximetry 11/19/21 11/19/21 11/19/21 10:30 10:45 11:00 Temperature Pulse Rate 58 L 59 L 62 Respiratory 10 L 13 12 Rate Blood Pressure 158/92 165/91 165/91 Blood Pressure [Right] O2 Sat by Pulse 98 98 98 Oximetry 11/19/21 11/19/21 11/19/21 11:15 11:30 11:45 Temperature Pulse Rate 58 L 61 69 Respiratory 14 14 13 Rate Blood Pressure 128/92 128/92 147/94 Blood Pressure [Right] O2 Sat by Pulse 98 97 98 Oximetry 11/19/21 11/19/21 11/19/21 12:00 12:15 12:30 Temperature Pulse Rate 80 69 64 Respiratory 13 13 11 L Rate Blood Pressure 147/94 153/87 153/87 Blood Pressure [Right] O2 Sat by Pulse 94 97 97 Oximetry 11/19/21 11/19/21 11/19/21 12:45 13:00 13:15 Temperature Pulse Rate 65 66 63 Respiratory 12 13 9 L Rate Blood Pressure 137/91 137/91 161/91 Blood Pressure [Right] O2 Sat by Pulse 98 97 97 Oximetry 11/19/21 11/19/21 11/19/21 13:30 13:46 14:00 Temperature Pulse Rate 67 66 65 Respiratory 15 14 13 Rate Blood Pressure 161/91 163/93 164/94 Blood Pressure [Right] O2 Sat by Pulse 97 97 98 Oximetry 11/19/21 11/19/21 11/19/21 14:16 14:30 14:46 Temperature Pulse Rate 65 72 69 Respiratory 11 L 14 15 Rate Blood Pressure 147/92 160/94 144/101 Blood Pressure [Right] O2 Sat by Pulse 97 97 96 Oximetry 11/19/21 11/19/21 11/19/21 15:00 15:16 15:30 Temperature Pulse Rate 69 68 68 Respiratory 11 L 12 12 Rate Blood Pressure 152/99 161/89 175/139 Blood Pressure [Right] O2 Sat by Pulse 99 98 97 Oximetry 11/19/21 11/19/21 11/19/21 15:46 15:47 15:49 Temperature 98.4 F 98.4 F Pulse Rate 68 66 67 Respiratory 14 14 14 Rate Blood Pressure 159/125 159/75 Blood Pressure [Right] O2 Sat by Pulse 95 98 97 Oximetry 11/19/21 11/19/21 11/19/21 15:51 16:00 16:16 Temperature Pulse Rate 77 67 Respiratory 12 11 L Rate Blood Pressure 159/86 154/87 Blood Pressure [Right] O2 Sat by Pulse 96 97 97 Oximetry 11/19/21 11/19/21 11/19/21 16:30 16:46 17:00 Temperature Pulse Rate 66 62 70 Respiratory 13 10 L 13 Rate Blood Pressure 137/87 151/97 156/81 Blood Pressure [Right] O2 Sat by Pulse 97 98 98 Oximetry 11/19/21 11/19/21 11/19/21 17:16 17:30 17:40 Temperature Pulse Rate 70 68 76 Respiratory 14 13 12 Rate Blood Pressure 160/91 162/97 168/88 Blood Pressure [Right] O2 Sat by Pulse 95 98 95 Oximetry 11/19/21 11/19/21 11/19/21 17:50 18:00 18:10 Temperature Pulse Rate 66 70 59 L Respiratory 13 15 12 Rate Blood Pressure 168/88 165/93 165/89 Blood Pressure [Right] O2 Sat by Pulse 98 96 97 Oximetry 11/19/21 18:51 Temperature Pulse Rate Respiratory Rate Blood Pressure Blood Pressure [Right] O2 Sat by Pulse 98 Oximetry - Reevaluation(s) Reevaluation #1: 11/19/21 11:29 Patient here with medial chest pain and noted with epigastric tenderness-- patient reports improvement in symptoms after given GI cocktail--patient noted with normal cardiac work-up at this time--we will go ahead and discharge patient on maximum treatment for acid reflux as this is likely the cause of symptoms--we will also get a repeat troponin III hours interval before discharge Reevaluation #2: 11/19/21 11:52 Patient reevaluated and reports that her chest pain is coming back we will go ahead and get second troponin on consider admission--hospitalist consulted for serial troponin--and observation Reevaluation #3: 11/19/21 11:[address] Bain and have patient admitted for chest pain and serial cardiac troponin MARU score - Maru Score Age > 65: (0) No Aspirin use within the Past 7 Days: (0) No 3 or more CAD Risk Factors: (1) Yes 2 or more Angina events in past 24 hrs: (1) Yes Known CAD with more than 50% Stenosis: (0) No Elevated Cardiac Markers: (0) No ST Deviation Greater than 0.5mm: (0) No MARU Score: 2 ED Medical Decision Making - Lab Data Result diagrams: 11/19/21 15:00 11/20/21 06:04 - EKG Data -: EKG Interpreted by Me (Normal sinus rhythm at a rate of [address] elevation or depression ) EKG shows normal: sinus rhythm Rate: normal - EKG Data Interpretation: normal EKG Critical care attestation.: If time is entered above; I have spent that time in minutes in the direct care of this critically ill patient, excluding procedure time. ED Disposition Clinical Impression: Chest pain Qualifiers: Chest pain type: unspecified Qualified Code(s): R07.9 - Chest pain, unspecified Disposition: 09 ADMITTED INPATIENT Is pt being admited?: Yes Does the pt Need Aspirin: No Condition: Stable
--- NOTE | 2021-11-19 06:53 | XRay Report ---
CHEST 1 VIEW 11/19/2021 5:42 AM INDICATION / CLINICAL INFORMATION: Chest Pain. COMPARISON: 06/01/2021 FINDINGS: SUPPORT DEVICES: None. HEART / MEDIASTINUM: No significant abnormality. LUNGS / PLEURA: No significant pulmonary or pleural abnormality. No pneumothorax. ADDITIONAL FINDINGS: No significant additional findings. IMPRESSION: 1. No acute findings. Signer Name: Burton Dinero MD Signed: 11/19/2021 6:48 AM Workstation Name: [id number]
[2021-11-19] MEDS ORDERED: ONDANSETRON 4 MG/2 ML INJ IV ONE (07:04)
[2021-11-19] MEDS ORDERED: POTASSIUM CHLORIDE ER 20 MEQ TAB PO ONE (07:08)
[2021-11-19 07:26] LABS: Alanine Aminotransferase 18 units/L (7-56); Albumin 3.7 g/dL (3.9-5); BUN/Creatinine Ratio 18; Blood Urea Nitrogen 16 mg/dL (7-17); Calcium 9.3 mg/dL (8.4-10.2); Hemolysis Index 190
[2021-11-19] MEDS ORDERED: ALUM-MAG HYDROXIDE-SIMETHICONE 200-200-20MG/5ML ORAL LIQD 30 ML PO ONE (10:07)
[2021-11-19] MEDS ORDERED: LIDOCAINE VISCOUS 2% 15 ML ORAL LIQD PO ONE (10:10)
[2021-11-19] MEDS ORDERED: LIDOCAINE VISCOUS 2% 15 ML ORAL LIQD PO NR (10:30)
[2021-11-19] MEDS ORDERED: ALUM-MAG HYDROXIDE-SIMETHICONE 200-200-20MG/5ML ORAL LIQD 30 ML PO NR (10:30)
--- NOTE | 2021-11-19 10:46 | Electrocardiograph Report ---
[facility] Test Date: 2021-11-19 Test Time: 06:11:20 Pat Name: ANETA LIVE Department: Room: Gender: F Director Community Organization: [employer] : 1970 Requested By: MARIAN SCHWAB Order Number: [id number] Reading MD: Chuck Valero Measurements Intervals Clifford Rate: 60 P: 63 IA: 195 QRS: -20 QRSD: 96 T: 14 QT: 502 QTc: 503 Interpretive Statements Sinus rhythm Low voltage, precordial leads Compared to ECG 06/01/2021 20:35:41 Low QRS voltage now present Left ventricular hypertrophy no longer present probably no significant change noted. Electronically Signed On 11-19-2021 10:45:47 EDT by Chuck Valero
[2021-11-19] MEDS ORDERED: ONDANSETRON 4 MG ODT TAB PO PRN (13:41)
[2021-11-19] MEDS ORDERED: ALBUTEROL 8.5 GM MDI INHALATION IH PRN (13:41)
[2021-11-19] MEDS ORDERED: RIVAROXABAN 10 MG PO SCH (13:45)
[2021-11-19] MEDS ORDERED: ONDANSETRON 4 MG/2 ML INJ IV PRN (13:45)
[2021-11-19] MEDS ORDERED: oxyCODONE /ACETAMINOPHEN 5-325MG TAB PO PRN (13:45)
[2021-11-19] MEDS ORDERED: ACETAMINOPHEN 325 MG TAB PO PRN (13:45)
[2021-11-19] MEDS ORDERED: METOCLOPRAMIDE 10 MG/2 ML INJ IV PRN (13:45)
[2021-11-19] MEDS ORDERED: NON-FORMULARY EACH (Aripiprazole [Abilify] 20 MG Tablet) PO SCH (13:45)
--- NOTE | 2021-11-19 13:48 | History and Physical Report ---
History of Present Illness Date of examination: 11/19/21 Date of admission: November 19, 2021 Chief complaint: Chest pain since a.m. History of present illness: 51-year-old female with morbid obesity, CHF, hypothyroidism, asthma, arrhythmia psychiatric problems on Risperdal comes in for increasing shortness of breath and chest pain since morning. Chest pain is no nausea no vomiting. No diaphoresis. No palpitations. Patient is allergic to aspirin. Shortness of breath present. But no orthopnea. Patient on Lasix for CHF. No fever or chills. Minimal exertion is an exacerbating factor. Rest is a relieving factor. Chest pain is about 6 6-7 on a scale of 1-10. Dull in character. - Past Medical History Previous Medical History?: Yes Hx Hypertension: Yes Hx Congestive Heart Failure: Yes Hx Diabetes: Yes Hx Deep Vein Thrombosis: Yes Hx Psychiatric Treatment: Yes (Bipolar Depressed schizo affective, anxiety) Hx Asthma: Yes Additional medical history: Hypothyroidism, sleep apnea, DVT, Chronic Back pain, Gastritis, IBS. Hyperlipidemia, Ovarian cyst. Stubbs's palsey - Surgical History Past Surgical History?: Yes Hx Cholecystectomy: Yes Additional Surgical History: Tonsilectomy, Uterine Ablation, Hernia repair, D&C. 2 molar pulled. stiched to nasal cavity. Right Rotator cuff repair. Cholecystectomy. Patient states that she has mesh from hernia repair. - Social History Smoking Status: Never Smoker Substance Use Type: Prescribed Review of Systems ROS: Stated complaint: HYPOGLYCEMIA Other details as noted in HPI Comment: All other systems reviewed and negative Cardiovascular: chest pain Medications and Allergies Allergies Allergy/AdvReac Type Severity Reaction Status Date / Time acetaminophen [From Lortab] Allergy Shortness Verified 11/19/21 07:48 of Breath aspirin Allergy Hives Verified 11/19/21 07:48 divalproex sodium Allergy Rash Verified 11/19/21 07:48 [From Depakote] hydrocodone [From Lortab] Allergy Hives Verified 11/19/21 07:48 latex Allergy Rash Verified 11/19/21 07:48 nut - unspecified Allergy Shortness Verified 11/19/21 07:48 of Breath oxycodone Allergy Hives Verified 11/19/21 07:48 Penicillins Allergy Rash Verified 11/19/21 07:48 propoxyphene Allergy Rash Verified 11/19/21 07:48 [From Darvocet-N] Sulfa (Sulfonamide Allergy Rash Verified 11/19/21 07:48 Antibiotics) dairy Allergy Diarrhea Uncoded 02/12/19 14:15 napsylate Allergy Hives Uncoded 02/12/19 14:14 Home Medications Medication Instructions Recorded Confirmed Last Taken Type Famotidine [Pepcid] 20 mg PO BID tablet 07/23/20 11/19/21 11/18/21 Rx Rivaroxaban [Xarelto] 10 mg PO QDAY #30 07/23/20 11/19/21 11/18/21 Rx Simvastatin 20 mg PO DAILY #30 07/23/20 11/19/21 11/18/21 Rx Benztropine [Cogentin] 0.5 mg PO BID #60 08/14/20 11/19/21 11/18/21 Rx ARIPiprazole [Abilify] 20 mg PO QDAY 11/10/20 11/19/21 11/18/21 History Levothyroxine [Synthroid] 75 mcg PO QAM@0600 tablet 11/10/20 11/19/21 11/18/21 Rx Melatonin [Melatonin 5MG TAB] 5 mg PO HS tablet 11/10/20 11/19/21 11/18/21 Rx OLANZapine [Zyprexa] 4 tab PO QHS 11/10/20 11/19/21 11/18/21 History Pantoprazole Sodium 1 tab PO DAILY 11/10/20 11/19/21 11/18/21 History Pregabalin 75 mg PO BID 11/10/20 11/19/21 11/18/21 History risperiDONE [RisperDAL] 1 mg PO BID tablet 11/10/20 11/19/21 11/18/21 Rx Clonidine HCl [Kapvay] 0.1 mg PO QDAY 11/19/21 11/19/21 11/18/21 History Escitalopram Oxalate [Lexapro] 20 mg PO QDAY 11/19/21 11/19/21 11/18/21 History Linaclotide [Linzess] 145 mcg PO QDAY 11/19/21 11/19/21 11/18/21 History Prazosin [Minipress] 1 mg PO QHS 11/19/21 11/19/21 11/18/21 History Promethazine [Phenergan] 25 mg PO Q8HR PRN 11/19/21 11/19/21 11/18/21 History Torsemide [Demadex] 20 mg PO BID 11/19/21 11/19/21 11/18/21 History Verapamil ER [Calan Sr] 180 mg PO BID 11/19/21 11/19/21 11/18/21 History hydrOXYzine PAMOATE [Vistaril] 25 mg PO TID 11/19/21 11/19/21 11/18/21 History metOLazone [Zaroxolyn] 2.5 mg PO QDAY 11/19/21 11/19/21 11/18/21 History Active Meds: Active Medications Sodium Chloride (Sodium Chloride 0.9% 10 Ml Flush Syringe) 10 ml IV PRN PRN PRN Reason: LINE FLUSH Exam - Constitutional Vitals: Temp Pulse Resp BP Pulse Ox 98 F 61 16 150/82 98 11/19/21 05:52 11/19/21 08:31 11/19/21 08:31 11/19/21 08:31 11/19/21 08:31 General appearance: Present: mild distress, well-nourished - EENT Eyes: Present: PERRL ENT: hearing intact, clear oral mucosa - Neck Neck: Present: supple, normal ROM - Respiratory Respiratory effort: normal Respiratory: bilateral: CTA - Cardiovascular Heart rate: 78 Rhythm: regular Heart Sounds: Present: S1 & S2. Absent: rub, click - Extremities Extremities: pulses symmetrical, No edema Peripheral Pulses: within normal limits - Abdominal General gastrointestinal: Present: soft, non-tender, non-distended, normal bowel sounds Female genitourinary: Present: normal - Integumentary Integumentary: Present: clear, warm, dry - Musculoskeletal Musculoskeletal: gait normal, strength equal bilaterally - Psychiatric Psychiatric: appropriate mood/affect, intact judgment & insight - Neurologic Neurologic: CNII-XII intact, moves all extremities HEART Score - HEART Score History: Moderately suspicious EKG: Normal Age: 45-65 Risk factors: > 3 risk factors or hx of atherosclerotic disease Troponin: Troponin T < 0.010 ng/mL (0.00-0.029) 11/19/21 12:32 - Critical Actions Critical Actions: 4-6 pts:12-16.6% risk of adverse cardiac event. Should be admitted Results - Labs CBC & Chem 7: 11/19/21 15:00 11/19/21 15:00 Labs: Laboratory Last Values WBC 10.1 K/mm3 (4.5-11.0) 11/19/21 06:21 RBC 4.99 M/mm3 (3.65-5.03) 11/19/21 06:21 Hgb 12.8 gm/dl (10.1-14.3) 11/19/21 06:21 Hct 38.5 % (30.3-42.9) 11/19/21 06:21 MCV 77 fl (79-97) L 11/19/21 06:21 MCH 26 pg (28-32) L 11/19/21 06:21 MCHC 33 % (30-34) 11/19/21 06:21 RDW 16.2 % (13.2-15.2) H 11/19/21 06:21 Plt Count 280 K/mm3 (140-440) 11/19/21 06:21 Lymph % (Auto) 19.5 % (13.4-35.0) 11/19/21 06:21 [place] % (Auto) 7.2 % (0.0-7.3) 11/19/21 06:21 Eos % (Auto) 1.8 % (0.0-4.3) 11/19/21 06:21 Baso % (Auto) 1.4 % (0.0-1.8) 11/19/21 06:21 Lymph # (Auto) 2.0 K/mm3 (1.2-5.4) 11/19/21 06:21 [place] # (Auto) 0.7 K/mm3 (0.0-0.8) 11/19/21 06:21 Eos # (Auto) 0.2 K/mm3 (0.0-0.4) 11/19/21 06:21 Baso # (Auto) 0.1 K/mm3 (0.0-0.1) 11/19/21 06:21 Seg Neutrophils % 70.1 % (40.0-70.0) H 11/19/21 06:21 Seg Neutrophils # 7.0 K/mm3 (1.8-7.7) 11/19/21 06:21 Sodium 135 mmol/L (137-145) L 11/19/21 06:21 Potassium 3.8 mmol/L (3.6-5.0) 11/19/21 06:21 Chloride 93.4 mmol/L (98-107) L 11/19/21 06:21 Carbon Dioxide 25 mmol/L (22-30) 11/19/21 06:21 Anion Gap 20 mmol/L 11/19/21 06:21 BUN 16 mg/dL (7-17) 11/19/21 06:21 Creatinine 0.9 mg/dL (0.6-1.2) 11/19/21 06:21 Estimated GFR > 60 ml/min 11/19/21 06:21 BUN/Creatinine Ratio 18 % 11/19/21 06:21 Glucose 117 mg/dL (65-100) H 11/19/21 06:21 Calcium 9.3 mg/dL (8.4-10.2) 11/19/21 06:21 Total Bilirubin 0.30 mg/dL (0.1-1.2) 11/19/21 06:21 AST 35 units/L (5-40) 11/19/21 06:21 ALT 18 units/L (7-56) 11/19/21 06:21 Alkaline Phosphatase 100 units/L (35-129) 11/19/21 06:21 Troponin T < 0.010 ng/mL (0.00-0.029) 11/19/21 12:32 NT-Pro-B Natriuret Pep 12.68 pg/mL (0-900) 11/19/21 08:10 Total Protein 7.5 g/dL (6.3-8.2) 11/19/21 06:21 Albumin 3.7 g/dL (3.9-5) L 11/19/21 06:21 Albumin/Globulin Ratio 1.0 % 11/19/21 06:21 Short CBC 11/19/21 11/19/21 Range/Units 06:21 15:00 WBC 10.1 8.9 (4.5-11.0) K/mm3 Hgb 12.8 12.3 (10.1-14.3) gm/dl Hct 38.5 38.5 (30.3-42.9) % Plt Count 280 287 (140-440) K/mm3 BMP 11/19/21 11/19/21 06:21 15:00 Sodium 135 L Potassium 3.8 Chloride 93.4 L Carbon Dioxide 25 BUN 16 Creatinine 0.9 0.7 Glucose 117 H Calcium 9.3 Cardiac Enzymes 11/19/21 11/19/21 Range/Units 06:21 12:32 Troponin T < 0.010 < 0.010 (0.00-0.029) ng/mL Liver Function 11/19/21 Range/Units 06:21 Total Bilirubin 0.30 (0.1-1.2) mg/dL AST 35 (5-40) units/L ALT 18 (7-56) units/L Alkaline Phosphatase 100 (35-129) units/L Albumin 3.7 L (3.9-5) g/dL Assessment and Plan Advance Directives: Yes (Full code) VTE prophylaxis?: Chemical Plan of care discussed with patient/family: Yes - Patient Problems (1) Acute coronary syndrome Current Visit: Yes Status: Acute Plan to address problem: Serial troponins and Lexiscan in the morning (2) CHF (congestive heart failure) Current Visit: Yes Status: Acute Qualifiers: Heart failure type: combined systolic and diastolic Plan to address problem: Continue Lasix and Aldactone Daily weights Daily intake output (3) Hypertension Current Visit: Yes Status: Chronic Qualifiers: Hypertension type: primary hypertension Qualified Code(s): I10 - Essential (primary) hypertension Plan to address problem: Continue antihypertensives and adjust medications (4) Hyperlipidemia Current Visit: Yes Status: Chronic Qualifiers: Hyperlipidemia type: mixed hyperlipidemia Qualified Code(s): E78.2 - Mixed hyperlipidemia Plan to address problem: Continue statins (5) COPD (chronic obstructive pulmonary disease) Current Visit: Yes Status: Chronic Qualifiers: COPD type: unspecified COPD Qualified Code(s): J44.9 - Chronic obstructive pulmonary disease, unspecified Plan to address problem: Continue bronchodilators and nebulizer treatments as needed (6) Arrhythmia Current Visit: Yes Status: Chronic Qualifiers: Arrhythmia type: atrial fibrillation Plan to address problem: On anticoagulation (7) DVT prophylaxis Current Visit: Yes Status: Acute Plan to address problem: On anticoagulation GI prophylaxis (8) Advance care planning Current Visit: Yes Status: Acute Plan to address problem: Disease education conducted, care plan discussed, diagnosis discussed, prognosis discussed. Patient is full code. Patient acknowledged understanding and agreement with care plan. +30 minutes.
[2021-11-19] MEDS ORDERED: HEPARIN 5,000 UNIT/1 ML VIAL SUB-Q SCH (14:00)
[2021-11-19] MEDS ORDERED: ALBUTEROL 2.5 MG/3 ML NEBU IH PRN (14:13)
[2021-11-19] MEDS: ARIPiprazole 10 MG TAB PO SCH ×2 (14:40→21:01)
[2021-11-19] MEDS: VERAPAMIL ER 180 MG TAB PO SCH ×2 (14:41→21:46)
[2021-11-19] MEDS: FAMOTIDINE 20 MG TAB PO SCH ×2 (14:41→21:00)
[2021-11-19] MEDS: DOCUSATE SODIUM 100 MG CAP PO SCH ×2 (14:42→21:00)
[2021-11-19 15:25] LABS: Hematocrit 38.5 % (30.3-42.9); Hemoglobin 12.3 gm/dl (10.1-14.3); Mean Corpuscular HGB Conc 32 % (30-34); Mean Corpuscular Volume 78 fl (79-97); Platelet Count 287 K/mm3 (140-440); Red Blood Count 4.91 M/mm3 (3.65-5.03); Red Cell Distribution Width 16.4 % (13.2-15.2)
[2021-11-19 15:33] LABS: INR 1.07 (0.87-1.13)
[2021-11-19 15:34] LABS: Partial Thromboplastin Time 33.2 Sec. (24.2-36.6)
[2021-11-19] MEDS: FLUTICASONE PROPIONATE NASAL SPRAY 16 GM NS SCH (15:55)
[2021-11-19] MEDS: BENZTROPINE 0.5 MG TAB PO SCH ×2 (15:57→21:47)
[2021-11-19] MEDS: MORPHINE 2 MG/1 ML INJ IV PRN ×2 (17:53→20:41)
[2021-11-19] MEDS: RIVAROXABAN 10 MG TAB PO SCH (21:01)
[2021-11-19] MEDS: PREGABALIN 75 MG CAP PO SCH (21:01)
[2021-11-19] MEDS: risperiDONE 1 MG TAB PO SCH (21:01)
[2021-11-19] MEDS ORDERED: MELATONIN 5 MG TAB PO SCH (22:00)
[2021-11-19] MEDS ORDERED: FLUTICASONE IH SCH (22:00)
[2021-11-19] MEDS ORDERED: FLUTICASONE PROPIONATE NASAL SPRAY 16 GM NS SCH (22:00)
[2021-11-20] MEDS ORDERED: LEVOTHYROXINE 75 MCG TAB PO SCH (06:00)
[2021-11-20 07:14] LABS: Alanine Aminotransferase 15 units/L (7-56); Albumin 3.8 g/dL (3.9-5); BUN/Creatinine Ratio 18; Blood Urea Nitrogen 14 mg/dL (7-17); Calcium 9.1 mg/dL (8.4-10.2); Hemolysis Index 10
[2021-11-20] MEDS ORDERED: REGADENOSON 0.4 MG/5 ML INJ IV ONE (07:35)
[2021-11-20] MEDS ORDERED: NON-FORMULARY EACH (Simvastatin [Simvastatin] 20 MG Tablet) PO SCH (10:00)
[2021-11-20] MEDS ORDERED: PANTOPRAZOLE 40 MG TAB PO SCH (10:00)
[2021-11-20] MEDS ORDERED: PRAVASTATIN 40 MG TAB PO SCH (10:00)
--- NOTE | 2021-11-20 12:30 | Nuclear Medicine Report ---
APPROVED REPORT Exam: Nuclear Stress Test Indication: [facility] pain [facility] Ht: 5 ft 4 in Wt: 339 lbs BSA: 2.45 m2 HR: 77 bpmBP: 132/85 mmHgBMI: 58.18 Rhythm: Sinus Rhythm Stress Test Details Stress Test: Pharmacologic stress testing performed using 0.4 mg of regadenoson per 5 mL given IV over 10 seconds. Reason for pharmacologic stress test: physical limitation. HR Resting HR: 76 bpm Max HR Achieved: 99 bpm Max Heart Rate (APMHR): 170 bpm Target HR (85% APMHR): 144 bpm % of APMHR: 58 Recovery HR: 85 bpm HR response to stress: Normal HR response to stress BP Resting BP: 132/78 mmHg Max BP: 155/115 mmHg Recovery BP: 135/87 mmHg BP response to stress: Abnormal hypertensive response to stress. ECG Resting ECG: Sinus Rhythm Stress ECG: Sinus Rhythm ST Change: None Arrhythmia: None Recovery ECG: Sinus Rhythm Recovery ST Change: None Recovery Arrhythmia: None Clinical Reason for Termination: Completed protocol Stress Symptoms: None Stress ECG Conclusion No chest pain and no ST changes of ischemia with pharmacologic stress, myocardial perfusion images are pending. NM EXAM: Myocardial Perfusion REST/STRESS Imaging Protocol: Rest Tc-99m/Stress Tc-99m 1 day Resting Data Rest SPECT myocardial perfusion imaging was performed in supine position 45 minutes following the intravenous injection of 10 mCi of Tc-99m Myoview. Time of rest injection: 0815 Pharmacologic Stress Pharmacologic stress test was performed by injecting Regadenoson 0.4 mg IV push followed by the intravenous injection of 28 mCi of Tc-99m Myoview. Time of stress injection: Gated Stress SPECT was performed 30 minutes after stress injection. The images were gated to evaluate regional wall motion and calculate left ventricular ejection fraction. Study Quality Study: excellent Lung Uptake: Normal Study Data TID = 1.20. Perfusion Wall Motion The rest and stress images show normal left ventricular wall motion. Left ventricle ejection fraction 61%. Nuclear Conclusion ECG Findings: negative for ischemia Clinical Findings: negative for ischemia Nuclear Findings: negative for ischemia Left Ventricular Function: normal Risk Study: low Normal rest and stress myocardial perfusion images, no ischemia demonstrated, normal left ventricular systolic function, ejection fraction 61%. Conclusion No chest pain and no ST changes of ischemia with pharmacologic stress, myocardial perfusion images are pending.
[2021-11-20] MEDS: PREGABALIN 75 MG CAP PO SCH (12:32)
[2021-11-20] MEDS: ARIPiprazole 10 MG TAB PO SCH (12:32)
[2021-11-20] MEDS: RIVAROXABAN 10 MG TAB PO SCH (12:32)
[2021-11-20] MEDS: risperiDONE 1 MG TAB PO SCH (12:32)
[2021-11-20] MEDS: FAMOTIDINE 20 MG TAB PO SCH (12:33)
[2021-11-20] MEDS: VERAPAMIL ER 180 MG TAB PO SCH (12:34)
[2021-11-20] MEDS: BENZTROPINE 0.5 MG TAB PO SCH (12:34)
[2021-11-20] MEDS: DOCUSATE SODIUM 100 MG CAP PO SCH (12:35)
[2021-11-20] MEDS: FLUTICASONE PROPIONATE NASAL SPRAY 16 GM NS SCH (12:41)
--- NOTE | 2021-11-20 12:58 | Discharge Summary ---
Providers - Providers Date of Admission: 11/19/21 13:45 Date of discharge: 11/20/21 Attending physician: CAN MUNROE MD Primary care physician: FACING BASTER Hospitalization Reason for admission: Acute coronary syndrome Condition: Stable Pertinent studies: Reviewed. Procedures: Nuclear stress test Hospital course: Patient is a 51-year-old female past medical history of congestive heart failure, hypothyroidism, asthma, morbid obesity, GERD, hypertension, hyperlipidemia, history of DVT on Xarelto, bipolar disorder, schizoaffective disorder, anxiety, sleep apnea who presented with shortness of breath and chest pain without any nausea, vomiting, diaphoresis, or palpitations. Patient denied any orthopnea. Chest pain was described as a 67/10. Patient was unable to be given aspirin due to an allergy. Cardiology was consulted for management of acute coronary syndrome. Patient underwent nuclear stress test (11/20/2021) revealing normal LV wall motion with EF of 61%. The exam was negative for ischemia. The overall conclusion was the patient had no chest pain or ST changes of ischemia with pharmacological stress, myocardial perfusion images are pending. Patient was counseled about the importance of medication compliance and following up with her dedenter. The patient expresses understanding. Patient is medically clear for discharge. Disposition: 01 HOME / SELF CARE / HOMELESS Final Discharge Diagnosis (Prints w/discharge instructions): Acute coronary syndrome, hypertension, hyperlipidemia, COPD, chronic atrial fibrillation on anticoagulation, hypothyroidism, asthma, GERD, bipolar disorder, schizoaffective disorder, anxiety, sleep apnea Time spent for discharge: 45 min Core Measure Documentation - Palliative Care Palliative Care/ Comfort Measures: Not Applicable - Core Measures Any of the following diagnoses?: history only Exam - Constitutional Vitals: Temp Pulse Resp BP Pulse Ox 98.8 F 73 18 140/81 92 11/20/21 07:52 11/20/21 07:52 11/20/21 07:52 11/20/21 10:51 11/20/21 07:52 General appearance: Present: no acute distress, obese - EENT Eyes: Present: PERRL, EOM intact ENT: hearing intact, clear oral mucosa, dentition normal - Neck Neck: Present: supple, normal ROM - Respiratory Respiratory effort: normal Respiratory: bilateral: CTA - Cardiovascular Rhythm: irregularly irregular Heart Sounds: Present: S1 & S2 - Extremities Extremities: no ischemia, pulses intact, pulses symmetrical, normal temperature, normal color Peripheral Pulses: within normal limits - Abdominal General gastrointestinal: Present: soft, non-tender, non-distended, normal bowel sounds Female genitourinary: Present: deferred - Rectal Rectal Exam: deferred - Integumentary Integumentary: Present: clear, warm, dry - Psychiatric Psychiatric: appropriate mood/affect, cooperative - Neurologic Neurologic: CNII-XII intact - Allied Health Allied health notes reviewed: nursing Plan Activity: advance as tolerated Diet: low salt Additional Instructions: Patient is a 51-year-old female past medical history of congestive heart failure, hypothyroidism, asthma, morbid obesity, GERD, hypertension, hyperlipidemia, history of DVT on Xarelto, bipolar disorder, schizoaffective disorder, anxiety, sleep apnea who presented with shortness of breath and chest pain without any nausea, vomiting, diaphoresis, or palpitations. Patient denied any orthopnea. Chest pain was described as a 67/10. Patient was unable to be given aspirin due to an allergy. Cardiology was consulted for management of acute coronary syndrome. Patient underwent nuclear stress test (11/20/2021) revealing normal LV wall motion with EF of 61%. The exam was negative for ischemia. The overall conclusion was the patient had no chest pain or ST changes of ischemia with pharmacological stress, myocardial perfusion images are pending. Patient was counseled about the importance of medication compliance and following up with her dedenter. The patient expresses understanding. Patient is medically clear for discharge. Care Plan Goals: Patient is medically clear for discharge. Assessment: Patient is a 51-year-old female past medical history of congestive heart failure, hypothyroidism, asthma, morbid obesity, GERD, hypertension, hyperlipidemia, history of DVT on Xarelto, bipolar disorder, schizoaffective disorder, anxiety, sleep apnea who presented with shortness of breath and chest pain without any nausea, vomiting, diaphoresis, or palpitations. Patient denied any orthopnea. Chest pain was described as a 67/10. Patient was unable to be given aspirin due to an allergy. Cardiology was consulted for management of acute coronary syndrome. Patient underwent nuclear stress test (11/20/2021) revealing normal LV wall motion with EF of 61%. The exam was negative for ischemia. The overall conclusion was the patient had no chest pain or ST changes of ischemia with pharmacological stress, myocardial perfusion images are pending. Patient was counseled about the importance of medication compliance and following up with her dedenter. The patient expresses understanding. Patient is medically clear for discharge. Follow up with: PRIMARY CARE, [Primary Care Provider] - 3-5 Days
[2021-11-20 16:05] VITALS: BP 159/78
== END 2021-11-20 19:49 | disposition home or self-care (01) ==
LOC: ED 05:46 → INTOOBSV 13:45 → 4A 13:45
PROVIDERS: ADMIT Internal Medicine; ATTEND Student in an Organized Health Care Education/Training Program
DX: I24.9 Acute ischemic heart disease, unspecified (principal); I11.0 Hypertensive heart disease with heart failure; I50.41 Acute combined systolic (congestive) and diastolic (congestive) heart failure; J44.9 Chronic obstructive pulmonary disease, unspecified; I49.9 Cardiac arrhythmia, unspecified; E11.9 Type 2 diabetes mellitus without complications; E78.2 Mixed hyperlipidemia; E03.9 Hypothyroidism, unspecified; G47.30 Sleep apnea, unspecified; N83.209 Unspecified ovarian cyst, unspecified side; F31.9 Bipolar disorder, unspecified; K29.70 Gastritis, unspecified, without bleeding; G51.0 Bell's palsy; K58.9 Irritable bowel syndrome, unspecified; Z86.718 Personal history of other venous thrombosis and embolism; Z90.49 Acquired absence of other specified parts of digestive tract; Z79.899 Other long term (current) drug therapy; Z98.890 Other specified postprocedural states
CPT/HCPCS: 36415; 71045; 78452; 80053; 82565; 83880; 84484; 85025; 85027; 85610; 85730; 93005; 93017; 96374; 96375; 96376; 99285; A9502; G0378; J2270; J2405; J2785; J3490

== ENCOUNTER 2022-01-18 09:10 | Emergency (ER) | payer MEDICARE ==
[2022-01-18 10:23] LABS: Basophils # (Auto) 0.1 K/mm3 (0.0-0.1); Basophils % (Auto) 0.9 % (0.0-1.8); Eosinophils # (Auto) 0.2 K/mm3 (0.0-0.4); Eosinophils % (Auto) 3.2 % (0.0-4.3); Hemoglobin 11.4 gm/dl (10.1-14.3); Lymphocytes # (Auto) 1.6 K/mm3 (1.2-5.4); Lymphocytes % (Auto) 25.1 % (13.4-35.0); Mean Corpuscular HGB Conc 32 % (30-34); Mean Corpuscular Volume 78 fl (79-97); Monocytes # (Auto) 0.5 K/mm3 (0.0-0.8); Monocytes % (Auto) 7.4 % (0.0-7.3); Platelet Count 306 K/mm3 (140-440); Red Blood Count 4.59 M/mm3 (3.65-5.03); Red Cell Distribution Width 16.2 % (13.2-15.2)
[2022-01-18 10:46] VITALS: BP 113/65
[2022-01-18 10:49] LABS: Alanine Aminotransferase 14 units/L (7-56); Albumin 4.2 g/dL (3.9-5); BUN/Creatinine Ratio 14; Blood Urea Nitrogen 13 mg/dL (7-17); Hemolysis Index 2
[2022-01-18 10:51] LABS: Bilirubin,Direct < 0.2 mg/dL (0-0.2)
--- NOTE | 2022-01-18 10:52 | Emergency Department Report ---
ED Dizziness HPI - General Chief Complaint: Dizziness Stated Complaint: LIGHTHEADED Time Seen by Provider: 01/18/22 09:39 Source: patient, EMS Mode of arrival: Stretcher Limitations: No Limitations - History of Present Illness Initial Comments: Patient is a 61-year-old female presenting to ED with complaint of dizziness and not feeling well for the past day. She also reports diarrhea for the past 3 weeks. States she was on a course of ciprofloxacin prior to the onset of her diarrhea. States her PCP wanted her tested for C. difficile. She denies any fever or chills. - Related Data Home Medications Medication Instructions Recorded Confirmed Last Taken ARIPiprazole [Abilify] 20 mg PO QDAY 11/10/20 11/19/21 11/18/21 OLANZapine [Zyprexa] 4 tab PO QHS 11/10/20 11/19/21 11/18/21 Pantoprazole Sodium 1 tab PO DAILY 11/10/20 11/19/21 11/18/21 Pregabalin 75 mg PO BID 11/10/20 11/19/21 11/18/21 Clonidine HCl [Kapvay] 0.1 mg PO QDAY 11/19/21 11/19/21 11/18/21 Escitalopram Oxalate [Lexapro] 20 mg PO QDAY 11/19/21 11/19/21 11/18/21 Linaclotide [Linzess] 145 mcg PO QDAY 11/19/21 11/19/21 11/18/21 Prazosin 1 mg PO QHS 11/19/21 11/19/21 11/18/21 Promethazine [Phenergan] 25 mg PO Q8HR PRN 11/19/21 11/19/21 11/18/21 Torsemide [Demadex] 20 mg PO BID 11/19/21 11/19/21 11/18/21 Verapamil ER [Calan SR] 180 mg PO BID 11/19/21 11/19/21 11/18/21 hydrOXYzine PAMOATE [Vistaril] 25 mg PO TID 11/19/21 11/19/21 11/18/21 metOLazone [Zaroxolyn] 2.5 mg PO QDAY 11/19/21 11/19/21 11/18/21 Previous Rx's Medication Instructions Recorded Last Taken Type Famotidine [Pepcid] 20 mg PO BID tablet 07/23/20 11/18/21 Rx Rivaroxaban [Xarelto] 10 mg PO QDAY #30 07/23/20 11/18/21 Rx Simvastatin 20 mg PO DAILY #30 07/23/20 11/18/21 Rx Benztropine [Cogentin] 0.5 mg PO BID #60 08/14/20 11/18/21 Rx Levothyroxine [Synthroid] 75 mcg PO QAM@0600 tablet 11/10/20 11/18/21 Rx Melatonin [Melatonin 5MG TAB] 5 mg PO HS tablet 11/10/20 11/18/21 Rx risperiDONE [RisperDAL] 1 mg PO BID tablet 11/10/20 11/18/21 Rx Allergies Allergy/AdvReac Type Severity Reaction Status Date / Time acetaminophen [From Lortab] Allergy Shortness Verified 11/19/21 07:48 of Breath aspirin Allergy Hives Verified 11/19/21 07:48 divalproex sodium Allergy Rash Verified 11/19/21 07:48 [From Depakote] hydrocodone [From Lortab] Allergy Hives Verified 11/19/21 07:48 latex Allergy Rash Verified 11/19/21 07:48 nut - unspecified Allergy Shortness Verified 11/19/21 07:48 of Breath oxycodone Allergy Hives Verified 11/19/21 07:48 Penicillins Allergy Rash Verified 11/19/21 07:48 propoxyphene Allergy Rash Verified 11/19/21 07:48 [From Darvocet-N] Sulfa (Sulfonamide Allergy Rash Verified 11/19/21 07:48 Antibiotics) dairy Allergy Diarrhea Uncoded 02/12/19 14:15 napsylate Allergy Hives Uncoded 02/12/19 14:14 ED Review of Systems ROS: Stated complaint: LIGHTHEADED Other details as noted in HPI Constitutional: denies: chills, fever Respiratory: denies: cough, shortness of breath, wheezing Cardiovascular: denies: chest pain, palpitations Gastrointestinal: diarrhea. denies: abdominal pain, nausea Genitourinary: denies: urgency, dysuria, discharge Skin: denies: rash, lesions Neurological: vertigo Psychiatric: denies: anxiety, depression ED Past Medical Hx - Past Medical History Hx Hypertension: Yes Hx Congestive Heart Failure: Yes Hx Diabetes: Yes Hx Deep Vein Thrombosis: Yes Hx Psychiatric Treatment: Yes (Bipolar Depressed schizo affective, anxiety) Hx Asthma: Yes Additional medical history: Hypothyroidism, sleep apnea, DVT, Chronic Back pain, Gastritis, IBS. Hyperlipidemia, Ovarian cyst. Stubbs's palsey - Surgical History Hx Cholecystectomy: Yes Additional Surgical History: Tonsilectomy, Uterine Ablation, Hernia repair, D&C. 2 molar pulled. stiched to nasal cavity. Right Rotator cuff repair. Cholecystectomy. Patient states that she has mesh from hernia repair. - Social History Smoking Status: Never Smoker - Medications Home Medications: Home Medications Medication Instructions Recorded Confirmed Last Taken Type Famotidine [Pepcid] 20 mg PO BID tablet 07/23/20 11/19/21 11/18/21 Rx Rivaroxaban [Xarelto] 10 mg PO QDAY #30 07/23/20 11/19/21 11/18/21 Rx Simvastatin 20 mg PO DAILY #30 07/23/20 11/19/21 11/18/21 Rx Benztropine [Cogentin] 0.5 mg PO BID #60 08/14/20 11/19/21 11/18/21 Rx ARIPiprazole [Abilify] 20 mg PO QDAY 11/10/20 11/19/21 11/18/21 History Levothyroxine [Synthroid] 75 mcg PO QAM@0600 tablet 11/10/20 11/19/21 11/18/21 Rx Melatonin [Melatonin 5MG TAB] 5 mg PO HS tablet 11/10/20 11/19/21 11/18/21 Rx OLANZapine [Zyprexa] 4 tab PO QHS 11/10/20 11/19/21 11/18/21 History Pantoprazole Sodium 1 tab PO DAILY 11/10/20 11/19/21 11/18/21 History Pregabalin 75 mg PO BID 11/10/20 11/19/21 11/18/21 History risperiDONE [RisperDAL] 1 mg PO BID tablet 11/10/20 11/19/21 11/18/21 Rx Clonidine HCl [Kapvay] 0.1 mg PO QDAY 11/19/21 11/19/21 11/18/21 History Escitalopram Oxalate [Lexapro] 20 mg PO QDAY 11/19/21 11/19/21 11/18/21 History Linaclotide [Linzess] 145 mcg PO QDAY 11/19/21 11/19/21 11/18/21 History Prazosin 1 mg PO QHS 11/19/21 11/19/21 11/18/21 History Promethazine [Phenergan] 25 mg PO Q8HR PRN 11/19/21 11/19/21 11/18/21 History Torsemide [Demadex] 20 mg PO BID 11/19/21 11/19/21 11/18/21 History Verapamil ER [Calan SR] 180 mg PO BID 11/19/21 11/19/21 11/18/21 History hydrOXYzine PAMOATE [Vistaril] 25 mg PO TID 11/19/21 11/19/21 11/18/21 History metOLazone [Zaroxolyn] 2.5 mg PO QDAY 11/19/21 11/19/21 11/18/21 History ED Physical Exam - General Limitations: No Limitations General appearance: alert, in no apparent distress, obese - Head Head exam: Present: atraumatic, normocephalic - Respiratory Respiratory exam: Present: normal lung sounds bilaterally. Absent: respiratory distress - Cardiovascular Cardiovascular Exam: Present: regular rate, normal rhythm, normal heart sounds. Absent: systolic murmur, diastolic murmur, rubs, gallop - GI/Abdominal GI/Abdominal exam: Present: soft. Absent: distended, tenderness - Neurological Exam Neurological exam: Present: alert, oriented X3 - Psychiatric Psychiatric exam: Present: normal affect, normal mood - Skin Skin exam: Present: warm, dry, intact, normal color ED Course Vital Signs 01/18/22 01/18/22 01/18/22 09:30 09:41 09:43 Temperature 98.4 F Pulse Rate 62 65 Respiratory 12 14 Rate Blood Pressure Blood Pressure 116/53 [Left] O2 Sat by Pulse 96 95 95 Oximetry 01/18/22 01/18/22 09:45 10:37 Temperature Pulse Rate 66 Respiratory 19 Rate Blood Pressure 116/53 113/65 Blood Pressure [Left] O2 Sat by Pulse 94 97 Oximetry ED Medical Decision Making - Lab Data Result diagrams: 01/18/22 09:56 01/18/22 09:56 - Medical Decision Making CBC and CMP grossly unremarkable. Vital signs are stable. Patient unable to give stool sample. Will discharge home with return precautions. Follow-up with PCP at earliest convenience. Critical care attestation.: If time is entered above; I have spent that time in minutes in the direct care of this critically ill patient, excluding procedure time. ED Disposition Clinical Impression: Nonspecific dizziness, Diarrhea Disposition: 01 HOME / SELF CARE / HOMELESS Is pt being admited?: No Does the pt Need Aspirin: No Condition: Stable Referrals: PRIMARY CARE, [Primary Care Provider] - 3-5 Days Time of Disposition: 11:26
[2022-01-18 11:54] LABS: Bacteria,Urine 1+ /HPF (Negative); Bilirubin,Urine NEG (Negative); Blood,Urine NEG (Negative); Color,Urine Yellow (Yellow); Granular Casts,Urine 30 /LPF; Mucus,Urine FEW /HPF; Protein,Urine <15 mg/dL mg/dL (Negative); Urobilinogen,Urine < 2.0 mg/dL (<2.0)
--- NOTE | 2022-01-19 12:24 | Electrocardiograph Report ---
[facility] Test Date: 2022-01-18 Test Time: 09:39:14 Pat Name: ANETA LIVE Department: Room: Gender: F [employer] In[employer]: [place] : 1970 Requested By: NIKOLAY GREENE Order Number: [id number] Reading MD: Maggie Mendez Measurements Intervals [place] Rate: 69 P: 72 NH: 198 QRS: -25 QRSD: 96 T: 28 QT: 456 QTc: 487 Interpretive Statements Sinus rhythm Low voltage, precordial leads Anterior Q waves, possibly due to LVH Compared to ECG 11/19/2021 06:11:20 No significant change Electronically Signed On 01-19-2022 12:23:38 EDT by Maggie Mendez
== END 2022-01-18 11:38 | disposition home or self-care (01) ==
LOC: ED 09:10
DX: R42 Dizziness and giddiness (principal); R19.7 Diarrhea, unspecified; I11.0 Hypertensive heart disease with heart failure; I50.9 Heart failure, unspecified; E11.9 Type 2 diabetes mellitus without complications; I82.409 Acute embolism and thrombosis of unspecified deep veins of unspecified lower extremity; F25.1 Schizoaffective disorder, depressive type; F41.9 Anxiety disorder, unspecified; J45.909 Unspecified asthma, uncomplicated; E03.9 Hypothyroidism, unspecified; G47.30 Sleep apnea, unspecified; G89.29 Other chronic pain; M54.9 Dorsalgia, unspecified; E78.5 Hyperlipidemia, unspecified; N83.209 Unspecified ovarian cyst, unspecified side; Z98.890 Other specified postprocedural states; Z88.2 Allergy status to sulfonamides; Z88.5 Allergy status to narcotic agent; Z88.6 Allergy status to analgesic agent; Z88.8 Allergy status to other drugs, medicaments and biological substances; Z91.010 Allergy to peanuts; Z91.011 Allergy to milk products
CPT/HCPCS: 36415; 80048; 80076; 81001; 85025; 87086; 93005; 99284